=== PATIENT | male | born 1935 | race Caucasian/White ===

== ENCOUNTER 2022-07-11 10:38 | Emergency (ER) | payer MEDICARE, SELFPAY ==
--- NOTE | ~2022-07-11 | CT_ITS ---
EXAMINATION: CT abdomen pelvis wo con DATE: 07/11/2022 12:24 INDICATION: Lower abdominal pain. Urinary retention. TECHNIQUE: Computed tomography (CT) of the abdomen and pelvis was performed without intravenous contr ast. The dose-length product was 569.44 mGy-cm. Automated exposure control and iterative reconstructi on technique were employed. COMPARISON: None. FINDINGS: There is bilateral lower lobe atelectasis/scarring. Large hiatal hernia. Cardiomegaly. No s ignificant pleural or pericardial effusion. The liver, spleen, pancreas, adrenal glands are unremarkable. There is bilateral hydronephrosis witho ut evidence for obstructing stone or mass. There is fecal impaction of the rectum and distal colon. T here is an infrarenal abdominal aortic aneurysm measuring 3.4 x 3 cm greatest axial dimension. There is Flores catheter in the bladder which is decompressed. There is a fat-containing right inguinal irchie ia. Nonobstructive bowel pattern. There are nonobstructing bilateral renal stones. Mild bilateral conner al atrophy. There is lumbar spondylosis. No focal lytic or blastic lesions. IMPRESSION: 1. Bilateral hydronephrosis. No obstructing stone or mass. 2: Nonobstructing bilateral nephrolithiasis. 3: Large hiatal hernia. 4: Fecal impaction of the distal colon and rectum. Reviewed, dictated and finalized at location B.
[2022-07-11 10:37] VITALS: BP 175/93; PULSE 67; RESP 18; TEMP 36.6; O2SAT 100
--- NOTE | 2022-07-11 10:46 | ED.MALEGU ---
HPI - Male Genitourinary General Chief complaint: Urogenital-Male Stated complaint: unable to urinate History of Present Illness HPI Narrative: 86-year-old male history of hypertension, diabetes , dyslipidemia ,BPH presents to the emergency room via EMS from home for evaluation of inability to void since yesterday. Patient states that he was recently being treated for urinary tract infection is currently on Cipro. Patient takes Flomax for BPH. No history of similar symptoms. Patient is also complaining of some generalized abdominal pain. Denies fevers. Patient states last bowel movement was Related Data Allergies Allergy/AdvReac Type Severity Reaction Status Date / Time No Known Allergies Allergy Verified 07/11/22 10:44 Review of Systems Review of Systems: CONSTITUTIONAL: Denies fever, chills, or sweats. EYES: Denies visual changes, redness, or discharge. ENT: Denies rhinorrhea, congestion, sore throat, or otalgia. CARDIOVASCULAR: Denies chest pain, palpitations, or edema. RESPIRATORY: Denies cough or dyspnea. GASTROINTESTINAL: Denies abdominal pain, nausea, vomiting, or diarrhea. GENITOURINARY: Reports recent UTI, SKIN: Denies rash or itching. MUSCULOSKELETAL: Denies back pain, joint pain, or myalgia. NEUROLOGIC: Denies headache, numbness, dizziness, or weakness. PSYCHIATRIC: Denies anxiety or depression. Exam Narrative: GENERAL: Well-appearing, well-nourished, no physical limitations, and in no acute distress. HEAD: Normocephalic, atraumatic. EYES: Conjunctivae normal, PERRLA and EOMI. CHEST: Clear to auscultation. No respiratory distress. No wheezes rales or rhonchi. HEART: Regular rate and rhythm. No murmur heard. Normal peripheral pulses. ABDOMEN: Soft, suprapubic tenderness and distention : Normal external male BACK: No CVA tenderness EXTREMITIES: Normal range of motion. No edema. No clubbing or cyanosis SKIN: Warm, dry, no rash. No noted wounds NEURO: No focal deficits. Alert and oriented x3. MAEW. CN's II-XI intact bilaterally PSYCH: Cooperative. Normal mood and affect. Course Vital Signs Vital signs: Vital Signs Temperature 36.6 C 07/11/22 10:37 Pulse Rate 67 07/11/22 10:37 Respiratory Rate 18 07/11/22 10:37 Blood Pressure 175/93 H 07/11/22 10:37 Pulse Oximetry 100 07/11/22 10:37 Oxygen Delivery Room Air 07/11/22 10:37 Temperature 36.6 C 07/11/22 10:37 Pulse Rate 67 07/11/22 10:37 Respiratory Rate 18 07/11/22 10:37 Blood Pressure 175/93 H 07/11/22 10:37 Pulse Oximetry 100 07/11/22 10:37 Oxygen Delivery Room Air 07/11/22 10:37 MDM - Male Genitourinary MDM Narrative Medical decision making narrative: 56-year-old male history of BPH, hypertension presented to the ER with acute urinary retention. Patient was recently diagnosed with UTI and was on Cipro. Bladder scanner showed 1000 cc fluids. Flores was placed and patient had 1100 cc of urine output. CBC showed no signs of infection. CMP demonstrated elevated BUN and creatinine. CT scan shows no acute abdominal abnormalities. Discussed case with Dr. Sutton's PA, she said she is comfortable having the patient go home with a leg bag and follow-up in her office in 1 week. We will start patient on finasteride. Lab Data 07/11/22 11:39 07/11/22 11:39 Labs: Lab Results 07/11/22 07/11/22 Range/Units 10:50 11:39 WBC 6.1 (4.5-10.0) K/mm3 RBC 2.96 L (4.6-6.20) M/mm3 Hgb 9.0 L (14.0-18.0) g/dL Hct 27.9 L (42.0-52.0) % MCV 94.3 (80-100) fl MCH 30.4 (26-34) pg MCHC 32.3 (32-36) g/dl RDW 13.2 (11.5-14.5) % Plt Count 142 L (150-375) k/mm3 MPV 10.5 H (7.4-10.4) fl Immature Gran % (Auto) 0.3 (0-0.5) % Neut % (Auto) 70.9 (45.5-73.1) % Lymph % (Auto) 13.2 L (18.3-44.2) % Metcalfe % (Auto) 12.7 H (2.6-8.5) % Eos % (Auto) 2.4 (0-4.4) % Baso % (Auto) 0.5 (0.2-1.2) % Lymph # (Auto) 0.81 L (0.9-3.2) K/mm3
[2022-07-11 11:11] LABS: Appearance Urine Clear (Clear); Bacteria Urine None Seen /hpf; Bilirubin Urine Negative (Negative); Blood Urine Negative (Negative); Color Urine Yellow (Yellow); Glucose Urine UA 3+ mg/dL (Negative); Ketones Urine Negative (Negative); Leukocyte Esterase Ur Negative LEU/UL (Negative); Nitrate Urine Negative (Negative); Non Pathogenic Casts 0-2; Protein Urine 1+ mg/dL (Negative); RBC Urine 0-2 /hpf (0-2); Specific Grav Ur 1.015 (1.001-1.035); Squamous Epithelial Cell Urine None seen /hpf (Few); Urobilinogen Urine 0.2 mg/dL (<2.0); WBC Urine 0-5 /hpf; pH Urine 5.5 (5.0-9.0)
[2022-07-11 11:15] LABS: Add Urine Microscopic? YES
[2022-07-11 11:50] LABS: Basophils Percent Auto 0.5 % (0.2-1.2); Eosinophils Absolute Auto 0.2 K/mm3 (0-0.3); Eosinophils Percent Auto 2.4 % (0-4.4); Hematocrit 27.9 % (42.0-52.0); Immature Granulocyte Absolute 0.02 K/mm3 (0.00-0.031); Immature Granulocyte Percent A 0.3 % (0-0.5); Lymphocytes Absolute Auto 0.81 K/mm3 (0.9-3.2); Lymphocytes Percent Auto 13.2 % (18.3-44.2); Mean Corpuscular HGB Conc 32.3 g/dl (32-36); Mean Corpuscular Hemoglobin 30.4 pg (26-34); Mean Corpuscular Volume 94.3 fl (80-100); Mean Platelet Volume 10.5 fl (7.4-10.4); Monocytes Absolute Auto 0.8 K/mm3 (0.1-0.6); Monocytes Percent Auto 12.7 % (2.6-8.5); Neutrophils Absolute Auto 4.4 K/mm3 (1.3-6.7); Neutrophils Percent Auto 70.9 % (45.5-73.1); Platelet Count Result 142 k/mm3 (150-375); Red Blood Count 2.96 M/mm3 (4.6-6.20); Red Cell Distribution Width 13.2 % (11.5-14.5); White Blood Count 6.1 K/mm3 (4.5-10.0)
[2022-07-11 12:03] LABS: Alanine Aminotransferase 17 U/L (6-50); Albumin Level 3.7 g/dL (3.5-5.1); Alkaline Phosphatase 89 U/L (38-126); Anion Gap 9 mmol/L (8-16); Aspartate Amino Transferase 17 U/L (17-59); Bilirubin,Total 0.6 mg/dL (0.2-1.3); Blood Urea Nitrogen 48 mg/dL (9-20); Calcium 9.5 mg/dL (8.4-10.2); Carbon Dioxide 22 mmol/L (22-30); Chloride 102 mmol/L (98-107); Estimated CRCL calculation 19 ml/min; Estimated Glomerular Filt Rate 22; Glucose 142 mg/dL (65-110); Potassium 3.8 mmol/L (3.4-5.0); Sodium 133 mmol/L (137-145)
== END 2022-07-11 14:27 | disposition home or self-care (01) ==
PROVIDERS: Emergency Provider Nurse Practitioner Family; PCP Internal Medicine
DX: N40.1 Benign prostatic hyperplasia with lower urinary tract symptoms (principal); R33.8 Other retention of urine; N39.0 Urinary tract infection, site not specified; I10 Essential (primary) hypertension; E11.9 Type 2 diabetes mellitus without complications; E78.5 Hyperlipidemia, unspecified; N13.2 Hydronephrosis with renal and ureteral calculous obstruction; K44.9 Diaphragmatic hernia without obstruction or gangrene; K56.41 Fecal impaction
CPT/HCPCS: 36415; 74176; 80053; 81001; 85025; 99284

== ENCOUNTER 2022-08-21 23:04 | Inpatient (IN) | payer MEDICARE, SELFPAY ==
--- NOTE | ~2022-08-21 | US_ITS ---
US renal BI 08/22/2022 12:06 Procedure: Realtime transabdominal ultrasound of the kidneys and bladder. Indication: Acute renal insufficiency Comparison: CT dated 07/11/2022 Findings: Renal echotexture is normal bilaterally without hydronephrosis, contour deforming mass. The re are right renal stones measuring up to 11 mm. The right kidney measures 10.5 cm and left kidney me asures 10.6 cm. Bladder is decompressed by Flores catheter. Impression: 1: Right nephrolithiasis. Reviewed, dictated and finalized at location [] Impression: 1: Right nephrolithiasis.
--- NOTE | ~2022-08-21 | XR_ITS ---
Portable chest x-ray Comparison: 08/07/2022 Clinical History: Weakness Findings: Probable minimal bilateral pleural effusions. There is probable minimal bibasilar pulmonar y edema/atelectasis. Cardiomediastinal silhouette is stable. Bones and soft tissues are unremarkable . Impression: Minimal bibasilar pulmonary edema/atelectasis with minimal pleural effusions. Reviewed, dictated and finalized at [facility]. Impression: Minimal bibasilar pulmonary edema/atelectasis with minimal pleural effusions.
--- NOTE | ~2022-08-21 | CT_ITS ---
CT head without contrast Indication: Altered mental status COMPARISON: 08/07/2022 Technique: Serial scans were obtained through the brain without the administration of contrast. Dose reduction technique was used on this scan by utilizing automated exposure control and iterative recon struction technique. The dose-length product (DLP) was 681.00 mGy-cm. Findings: There is no evidence of intracranial hemorrhage, mass lesion, or acute infarct. Left anteri or cerebral artery distribution infarct is present, unchanged. The ventricles and subarachnoid spaces are dilated, consistent with mild to moderate atrophy. Low attenuation regions are seen within the periventricular white matter bilaterally, likely representing changes from chronic microvascular isch emic disease. There is no evidence of edema, mass effect or midline shift. Left craniotomy is unchan ged. The visualized paranasal sinuses and mastoid air cells are clear. Impression: No intracranial hemorrhage, mass, or acute infarct. 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 Atrophy and chronic white matter changes, as above. Reviewed, dictated and finalized at [facility]. Impression: No intracranial hemorrhage, mass, or acute infarct. 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 Atrophy and chronic white matter changes, as above.
[2022-08-21 23:10] VITALS: BP 115/77; PULSE 87; RESP 24; TEMP 36.5; O2SAT 99
--- NOTE | 2022-08-21 23:19 | ED.WEAKNESS ---
HPI - Weakness General Chief complaint: Weakness Stated complaint: UTI? Source: patient and EMS Mode of arrival: EMS Limitations: altered mental status and dementia History of Present Illness HPI Narrative: Patient is an 87-year-old male with a past medical history of insulin-dependent diabetes, dementia, BPH with chronic indwelling Levy catheter, chronic kidney disease, hypertension, presenting to the emergency department for evaluation of altered mental status. Noted to be more confused from baseline, more disoriented per staff at care facility. No fever or reported complaints of vomiting or abdominal pain. Patient was transported to this facility via EMS in stable condition. All history is obtained from EMS and per my review of external medical records. Unfortunately, no history can be obtained from the patient secondary to altered mentation. He is able to state his name. Patient with recent admission for MRSA urinary tract infection for which patient received IV linezolid and was discharged back to facility on oral medications. Related Data Home Medications Medication Instructions Recorded Confirmed aspirin 81 mg tablet,delayed 81 mg PO DAILY 08/08/22 08/08/22 release empagliflozin 10 mg tablet 10 mg PO DAILY 08/08/22 08/08/22 (Jardiance) escitalopram oxalate 10 mg tablet 10 mg PO HS 08/08/22 08/08/22 ferrous sulfate 325 mg (65 mg 325 mg PO DAILY 08/08/22 08/08/22 iron) tablet insulin glargine 100 unit/mL 15 unit subcut DAILY 08/08/22 08/08/22 subcutaneous cartridge methenamine hippurate 1 gram tablet 1 g PO DAILY 08/08/22 08/08/22 metoprolol tartrate 25 mg tablet 25 mg PO HS 08/08/22 08/08/22 pravastatin 40 mg tablet 40 mg PO HS 08/08/22 08/08/22 sodium bicarbonate 650 mg tablet 650 mg PO BID 08/08/22 08/08/22 tamsulosin 0.4 mg capsule 0.4 mg PO HS 08/08/22 08/08/22 trazodone 50 mg tablet 50 mg PO HS PRN Sleep 08/08/22 08/08/22 Allergies Allergy/AdvReac Type Severity Reaction Status Date / Time No Known Allergies Allergy Verified 07/11/22 10:44 Review of Systems Review of Systems: ROS unobtainable: Yes unobtainable due to mental status [facility] Past Medical History Medical History (Updated 08/22/22 @ 00:37 by Julianne Cunha MD) Acute kidney injury superimposed on CKD Acute UTI Altered mental status Congestive heart failure Delirium due to general medical condition Dementia Family History Family History (Updated 08/08/22 @ 00:55 by Frieda Melendez RN) Other Unknown family medical history Social History Social History Smoking status: Never smoker Alcohol intake: never Substance use: never Substance use type: does not use Lack of Transportation: No Lack of Food: Never True Current Housing: I Have Housing Concerned About Future Housing: No Difficulty Paying Gas/Electric Bills: No Difficulty Paying for Meds: No Currently Unemployed: No Education: Don't Know Difficulty w/ Childcare or Family Care: No Spiritual care concerns: No Exam Narrative: GENERAL: Awake, alert, conversant HEAD: Normocephalic, atraumatic. EYES: PERRLA and EOMI. ENT: Nares clear, no rhinorrhea or epistaxis. Mucous membranes moist. NECK: Supple. CHEST: No respiratory distress, breathing even and non labored HEART: Regular rate, sinus rhythm ABDOMEN:Non distended, non tender; indwelling levy catheter EXTREMITIES: Normal range of motion. No edema. SKIN: Pale, Warm, dry, no rash. NEURO:No focal deficits. Alert and oriented x1 Course Vital Signs Vital signs: Vital Signs Temperature 36.5 C 08/21/22 23:10 Pulse Rate 87 08/21/22 23:10 Respiratory Rate 24 H 08/21/22 23:10 Blood Pressure 115/77 08/21/22 23:10 Pulse Oximetry 99 08/21/22 23:10 Oxygen Delivery Room Air 08/21/22 23:10 Temperature 36.5 C 08/21/22 23:10 Pulse Rate 87 08/21/22 23:10 Respiratory Rate 24 H 08/21/22 23:10 Bl
[2022-08-21 23:46] LABS: Basophils Percent Auto 0.2 % (0.2-1.2); Immature Granulocyte Absolute 0.09 K/mm3 (0.00-0.031); Immature Granulocyte Percent A 0.6 % (0-0.5); Lymphocytes Absolute Auto 0.84 K/mm3 (0.9-3.2); Lymphocytes Percent Auto 5.7 % (18.3-44.2); Mean Corpuscular Hemoglobin 31.3 pg (26-34); Monocytes Absolute Auto 1.6 K/mm3 (0.1-0.6); Neutrophils Absolute Auto 12.2 K/mm3 (1.3-6.7); Neutrophils Percent Auto 82.5 % (45.5-73.1); Platelet Count Result 153 k/mm3 (150-375); Red Blood Count 1.98 M/mm3 (4.6-6.20); Red Cell Distribution Width 16.5 % (11.5-14.5); White Blood Count 14.8 K/mm3 (4.5-10.0)
[2022-08-21] MEDS: SODIUM CHLORIDE 0.9% IV 1,000 ML 999 ML IV CONT (23:50)
[2022-08-21 23:55] LABS: Hematocrit 19.4 % (42.0-52.0); Hemoglobin 6.2 g/dL (14.0-18.0)
[2022-08-21 23:58] LABS: INR 1.2
[2022-08-21 23:59] LABS: Partial Thromboplastin Time 24.3 SECONDS (22.3-36.8)
[2022-08-22] VITALS (23 sets, daily range): BP systolic 115–159; BP diastolic 61–84; PULSE 66–91; RESP 16–24; TEMP 36.4–37.1; O2SAT 94–100
[2022-08-22] LABS: Alanine Aminotransferase 23 U/L (6-50); Albumin Level 3.3 g/dL (3.5-5.1); Alkaline Phosphatase 66 U/L (38-126); Anion Gap 11 mmol/L (8-16); Aspartate Amino Transferase 34 U/L (17-59); Bilirubin,Total 0.6 mg/dL (0.2-1.3); Blood Urea Nitrogen 78 mg/dL (9-20); Calcium 9.3 mg/dL (8.4-10.2); Carbon Dioxide 15 mmol/L (22-30); Chloride 104 mmol/L (98-107); Estimated CRCL calculation 13 ml/min; Estimated Glomerular Filt Rate 14; Glucose 70 mg/dL (65-110); Potassium 4.7 mmol/L (3.4-5.0); Sodium 130 mmol/L (137-145)
--- NOTE | 2022-08-22 | ECHO_ITS ---
Patient Info Name: Karl Thompson Age: 87 years : 1935 Gender: Male Ht: 72 in Wt: 220 lbs BSA: 2.27 m2 HR: 70 bpm BP: 129 / 70 mmHg Heart Rhythm: Sinus Arrhythmia Technical Quality: Poor Exam Date: 08/22/2022 10:23 AM Exam Location: [facility] Pulmonary Patient Status: Inpatient Admit Date: 08/22/2022 Staff Ordering Physician: Jluianne Cunha MD Station Attendant: Chris Solo RDCS Attending Provider: Luis Felipe Weiner MD Referring Physician: Alphonse BHAGAT; Exam Type: CA echo doppler color flow Study Info Indications - elevated troponin Complete two-dimensional, color flow and Doppler transthoracic echocardiogram is performed. Reason for Poor Study: poor echocardiographic windows Summary 1. Complete two-dimensional, color flow and Doppler transthoracic echocardiogram is performed. 2. Left ventricular chamber dimension is normal. 3. Left ventricular systolic function is lower limits of normal, estimated at 50-55%. Cannot rule out regional wall motion abnormalities on this study. 4. There is moderately increased left ventricular wall thickness. 5. The left ventricular diastolic function is grade I diastolic dysfunction. 6. Right ventricular systolic function is normal. 7. Left atrial chamber dimension is moderately enlarged. 8. Right atrial chamber dimension is moderately enlarged. 9. The aortic valve is not well visualized. However, based on Doppler, appears there is at least mild-moderate aortic stenosis. 10. There is severe aortic valve calcification. 11. The mitral valve has thickened leaflets. 12. The mitral valve annulus is moderately calcified. 13. There is moderate mitral valve regurgitation. 14. There is mild tricuspid valve regurgitation. Left Ventricle Left ventricular chamber dimension is normal. Left ventricular systolic function is lower limits of normal, estimated at 50-55%. Cannot rule out regional wall motion abnormalities on this study. There is moderately increased left ventricular wall thickness. The left ventricular diastolic function is grade I diastolic dysfunction. Right Ventricle Right ventricular chamber dimension is normal. Right ventricular systolic function is normal. Left Atria Left atrial chamber dimension is moderately enlarged. Right Atria Right atrial chamber dimension is moderately enlarged. Atrial Septum Interatrial septum not well visualized. Aortic Valve The aortic valve is not well visualized. However, based on Doppler, appears there is at least mild-moderate aortic stenosis. There is severe aortic valve calcification. Pulmonic Valve The pulmonic valve is not well visualized. Mitral Valve The mitral valve has thickened leaflets. There is moderate mitral valve regurgitation. The mitral valve annulus is moderately calcified. Tricuspid Valve There is mild tricuspid valve regurgitation. Pericardium/Pleural The pericardium appears epicardial fat pad. There is no pericardial effusion. Inferior Vena Cava Normal inferior vena cava with >50% collapse upon inspiration consistent with normal right atrial pressure, 10 mmHg. Aorta The aortic root size at the sinus of Valsalva is normal. Left Ventricular Outflow Tract Name Value Normal LVOT Doppler LVOT Peak Gradient 4 mmHg LVOT Mean Gradient 2 mmHg
--- NOTE | 2022-08-22 | ECG_ITS ---
Measurements Intervals Lynn Rate: 76 P: 51 VA: 187 QRS: 9 QRSD: 142 T: 2 QT: 394 QTc: 443 Interpretive Statements SINUS RHYTHM RIGHT BUNDLE BRANCH BLCOK ABNORMAL RHYTHM ECG COMPARED TO ECG 08/07/2022 20:35:24 NO SIGNIFICANT CHANGES Electronically Signed On 08-22-2022 14:14:53 CDT by Arnie Morgan M.D.
--- NOTE | 2022-08-22 00:04 | PM.IMHP ---
H&P: HPI History of Present Illness Date/Time: 08/22/22 00:04 Chief Complaint: Altered mental status Narrative: This is an 87-year-old male with past medical history significant for chronic kidney disease, chronic indwelling Flores catheter, dyslipidemia, MRSA recurrent urinary tract infection, type 2 diabetes mellitus, benign prostatic hyperplasia. Recently admitted and discharged from [facility] and treated for the urinary tract infection sent to assisted on linezolid. Patient was brought today for evaluation due to altered mental status. Patient is unable to give any history due to lethargy, obtundation. Preliminary workup was significant for a hemoglobin of 6 hematocrit of 19 creatinine of 4 BUN 76, initial troponin was 5.6. A urinalysis showed numerous WBCs Review of Systems Review of Systems: ROS unobtainable: Yes unobtainable due to mental status (Obtundation, lethargy) PMFSH Past Medical History Medical History (Updated 08/22/22 @ 02:32 by Luis Felipe Weiner MD) Acute kidney injury superimposed on CKD Acute UTI Altered mental status Congestive heart failure Delirium due to general medical condition Dementia Family History Family History Other Unknown family medical history Social History Social History Smoking status: Never smoker Alcohol intake: never Substance use: never Substance use type: does not use Lack of Transportation: No Lack of Food: Never True Current Housing: I Have Housing Concerned About Future Housing: No Difficulty Paying Gas/Electric Bills: No Difficulty Paying for Meds: No Currently Unemployed: No Education: Grade School Difficulty w/ Childcare or Family Care: No Spiritual care concerns: No Meds Home Medications and Allergies Home Medications Medication Instructions Recorded Confirmed Type finasteride 5 mg tablet 5 mg PO DAILY #30 tabs 07/11/22 08/22/22 Rx aspirin 81 mg tablet,delayed 81 mg PO DAILY 08/08/22 08/22/22 History release empagliflozin 10 mg tablet 10 mg PO DAILY 08/08/22 08/22/22 History (Jardiance) escitalopram oxalate 10 mg tablet 10 mg PO HS 08/08/22 08/22/22 History ferrous sulfate 325 mg (65 mg 325 mg PO DAILY 08/08/22 08/22/22 History iron) tablet insulin glargine 100 unit/mL 40 unit subcut DAILY 08/08/22 08/22/22 History subcutaneous cartridge methenamine hippurate 1 gram tablet 1 g PO DAILY 08/08/22 08/22/22 History metoprolol tartrate 25 mg tablet 25 mg PO HS 08/08/22 08/22/22 History pravastatin 40 mg tablet 40 mg PO HS 08/08/22 08/22/22 History sodium bicarbonate 650 mg tablet 650 mg PO TID 08/08/22 08/22/22 History tamsulosin 0.4 mg capsule 0.4 mg PO HS 08/08/22 08/22/22 History linezolid 600 mg tablet 600 mg PO Q12HR@1200,0000 #10 tabs 08/10/22 08/22/22 Rx Allergies Allergy/AdvReac Type Severity Reaction Status Date / Time No Known Allergies Allergy Verified 07/11/22 10:44 Vital Signs Vital Signs - 24 hr 08/21/22 23:10 Temperature 97.7 F Pulse Rate 87 Respiratory Rate 24 H Blood Pressure 115/77 Pulse Oximetry 99 Oxygen Delivery Room Air Exam Narrative: Patient is laying in a stretcher Const: General: comfortable, no acute distress, well developed, ill appearing, average body habitus and other (Generalized pallor) Nutritional Appearance: average body habitus Orientation/consciousness: oriented to person and oriented to place Limitations: altered mental status HENMT: Head: normal to inspection, normocephalic and atraumatic Ears: hearing grossly normal bilaterally Face/Nose/Sinus: normal facial exam Face and sinus: normal facial exam Eyes: General: appearance normal, both eyes and all related structures Pupils: Equal, round and reactive pupils present EOM: EOMs intact bilaterally Neck: Neck: full ROM, no lymphadenopathy and no JVD Thyroid: thyroid sebastian
[2022-08-22 00:16] LABS: Appearance Urine Turbid (Clear); Bilirubin Urine Negative (Negative); Blood Urine 1+ (Negative); Color Urine Yellow (Yellow); Glucose Urine UA Negative (Negative); Ketones Urine Negative (Negative); Leukocyte Esterase Ur 3+ LEU/UL (Negative); Need Manual Microscopic Reviewed; Nitrate Urine Negative (Negative); Non Pathogenic Casts 0-2; Protein Urine 1+ mg/dL (Negative); RBC Urine >100 /hpf (0-2); Specific Grav Ur 1.015 (1.001-1.035); Squamous Epithelial Cell Urine None seen /hpf (Few); Urobilinogen Urine 0.2 mg/dL (<2.0); WBC Urine 21-50 /hpf; pH Urine 5.5 (5.0-9.0)
[2022-08-22 00:19] LABS: Add Urine Microscopic? YES; Bacteria Urine 3+ /hpf
[2022-08-22 00:20] LABS: Budding Yeast Urine Present /hpf
[2022-08-22 01:06] LABS: Lactic Acid Reflex 0.7 mmol/L (0.7-2.0)
[2022-08-22 01:11] LABS: Hemoglobin 5.2 g/dL (14.0-18.0)
[2022-08-22 01:12] LABS: Hematocrit 15.9 % (42.0-52.0)
--- NOTE | 2022-08-22 02:01 | ADMGEN ---
This patient, Karl Thompson, was admitted to 2 Medical Room 256-. Patient/family oriented to hospital policies and general routines including ID bracelet, bed and alarms, visiting hours, pain management, procedures, bathroom and other care routines, personal items, smoking policy, room service/diet, and visiting hours. Information on how to activate the Rapid Response Team has been discussed. Patient/Family are encouraged to report perceived risks to care and to ask questions if they do not understand what they are told or what they should do.
[2022-08-22] MEDS: SODIUM CHLORIDE 0.9% IV 250 ML 30 ML IV CONT ×2 (02:36→06:36)
[2022-08-22] MEDS: PANTOPRAZOLE SODIUM IV 80 MG in SODIUM CHLORIDE 0.9% IV 500 ML 50 MG IV CONT ×2 (03:33→14:00)
[2022-08-22 06:46] LABS: Hematocrit 20.2 % (42.0-52.0); Hemoglobin 6.3 g/dL (14.0-18.0)
--- NOTE | 2022-08-22 06:51 | WPDGICN ---
Assessment and Plan Assessment and plan (1) Acute blood loss anemia: Code(s): D62 - Acute posthemorrhagic anemia Status: Acute Assessment and Plan: He denies seeing blood in his stools. Because his history is not quite reliable I will contact his granddaughter for more information. hemoglobin has dropped from 8.6 earlier this month to 6.2 yesterday than 5.2 did a after transfusion with 2 units is up to 7.4. He has clearly lost a significant amount of blood. (2) Dementia: Code(s): F03.90 - Unspecified dementia, unspecified severity, without behavioral disturbance, psychotic disturbance, mood disturbance, and anxiety Status: Acute (3) Non-ST elevation SD (NSTEMI): Code(s): I21.4 - Non-ST elevation (NSTEMI) myocardial infarction Status: Acute Assessment and Plan: His troponin level is elevated at 5.67. Cardiology has been consulted (4) Acute kidney injury superimposed on CKD: Code(s): N17.9 - Acute kidney failure, unspecified; N18.9 - Chronic kidney disease, unspecified Status: Acute Assessment and Plan: His creatinine which was 2.8 a few months ago is now up to 4. BUN has been increasing also, 78 now versus 39 earlier in August This could be relative dehydration or bleeding particularly from the upper gastrointestinal tract. He does not take NSAIDs. Plan endoscopy will be considered when cleared by Cardiology. GI Consult Note Consult date/time: 08/22/22 06:51 HPI: Karl Thompson is a 87 year old male who presented to the emergency room yesterday with severe weakness. He states that he has been feeling tired for the past couple of days. He is denying any abdominal pain or chest pain. His troponin levels however quite elevated consistent with non STEMI. He was found have a hemoglobin of 6.2 which is lower than his usual which is around 8 or 9. This morning fact his hemoglobin is down to 5.2. He is receiving his 2nd unit of blood. He denies seeing any blood his stools are of having any change in the color or consistency of his bowel movements. He does take aspirin but denies NSAIDs. Review of Systems Review of Systems: All systems reviewed & are unremarkable except as noted in HPI and below PMFSH Past Medical History Medical History Acute kidney injury superimposed on CKD Acute UTI Altered mental status Congestive heart failure Delirium due to general medical condition Dementia Family History Family History Other Unknown family medical history Social History Social History Smoking status: Never smoker Alcohol intake: never Substance use: never Substance use type: does not use Lack of Transportation: No Lack of Food: Never True Current Housing: I Have Housing Concerned About Future Housing: No Difficulty Paying Gas/Electric Bills: No Difficulty Paying for Meds: No Currently Unemployed: No Education: Grade School Difficulty w/ Childcare or Family Care: No Spiritual care concerns: No Meds Home Medications and Allergies Home Medications Medication Instructions Recorded Confirmed Type finasteride 5 mg tablet 5 mg PO DAILY #30 tabs 07/11/22 08/22/22 Rx aspirin 81 mg tablet,delayed 81 mg PO DAILY 08/08/22 08/22/22 History release empagliflozin 10 mg tablet 10 mg PO DAILY 08/08/22 08/22/22 History (Jardiance) escitalopram oxalate 10 mg tablet 10 mg PO HS 08/08/22 08/22/22 History ferrous sulfate 325 mg (65 mg 325 mg PO DAILY 08/08/22 08/22/22 History iron) tablet insulin glargine 100 unit/mL 40 unit subcut DAILY 08/08/22 08/22/22 History subcutaneous cartridge methenamine hippurate 1 gram tablet 1 g PO DAILY 08/08/22 08/22/22 History metoprolol tartrate 25 mg tablet 25 mg PO HS 08/08/22 08/22/22 History pravastatin 40 mg ta
[2022-08-22 08:00] LABS: Iron 27 ug/dL (49-181)
[2022-08-22 08:13] LABS: Percent Iron Saturation 11 % (20-50)
--- NOTE | 2022-08-22 09:03 | PM.CNCAR ---
Assessment and Plan Assessment and plan (1) Non-ST elevation OR (NSTEMI): Code(s): I21.4 - Non-ST elevation (NSTEMI) myocardial infarction Status: Acute Assessment and Plan: Initial troponin of 5.670 with repeat at 5.760. EKG shows sinus rhythm with RBBB, no significant changes compared to prior EKG. No chest pain. In the setting of acute on chronic anemia requiring blood transfusions, and significant ANA CRISTINA on CKD. Given acute on chronic anemia and ANA CRISTINA on CKD and patient without any chest pain, will manage conservatively. Likely demand ischemia. Echocardiogram ordered and pending. Resume ASA 81mg once daily when Hgb becomes stable and no longer needing blood transfusions. Recommend high-intensity statin if no contraindications. Will repeat troponin level. (2) Acute blood loss anemia: Code(s): D62 - Acute posthemorrhagic anemia Status: Acute Assessment and Plan: Hgb as low as 5.2. Receiving blood transfusions. GI has been consulted -- considering endoscopy pending our evaluation. Awaiting echo. (3) Altered mental status: Code(s): R41.82 - Altered mental status, unspecified Status: Acute Assessment and Plan: Workup and management as per primary team (4) Acute kidney injury superimposed on CKD: Code(s): N17.9 - Acute kidney failure, unspecified; N18.9 - Chronic kidney disease, unspecified Status: Acute Assessment and Plan: Closely monitor renal function. History of Present Illness History of Present Illness Consult date/time: 08/22/22 09:03 Requesting physician: Julianne Cunha MD Consult reason: Other (Elevated troponins) Reason For Visit: Anemia/Delirium/ANA CRISTINA Narrative: We are consulted for elevated troponins. This is an 87-year-old male with insulin-dependent diabetes, dementia, BPH with chronic indwelling Flores catheter, CKD, hypertension who presented to the ER for altered mental status. Upon my examination, patient is awake and alert. He knows his name and location (states he is in the hospital in [place]), but he is not oriented to time (thinks it's July and states his birthday was the day before yesterday). Patient is unable to provide any meaningful history. Therefore, history obtained from the chart and patient's medical team. ER workup showed Hgb of 6.2, SCr of 4, initial troponin of 5.670 with repeat at 5.760. EKG shows sinus rhythm with RBBB, no significant changes compared to prior EKG. CXR with minimal pulmonary edema and with minimal pleural effusions. Patient denies any chest pain or shortness of breath currently. He denies having chest pain prior to admission. Review of Systems Review of Systems: All systems reviewed & are unremarkable except as noted in HPI and below (HPI) [facility] Past Medical History Medical History Acute kidney injury superimposed on CKD Acute UTI Altered mental status Congestive heart failure Delirium due to general medical condition Dementia Family History Family History Other Unknown family medical history Social History Social History Smoking status: Never smoker Alcohol intake: never Substance use: never Substance use type: does not use Lack of Transportation: No Lack of Food: Never True Current Housing: I Have Housing Concerned About Future Housing: No Difficulty Paying Gas/Electric Bills: No Difficulty Paying for Meds: No Currently Unemployed: No Education: Grade School Difficulty w/ Childcare or Family Care: No Spiritual care concerns: No Meds Home Medications and Allergies Home Medications Medication Instructions Recorded Confirmed Type finasteride 5 mg tablet 5 mg PO DAILY #30 tabs 07/11/22 08/22/22 Rx aspirin 81 mg tablet,delayed 81 mg PO DAILY 08/08/22 08/22/22 History release empagliflozin 10 mg ta
[2022-08-22 12:44] LABS: Hematocrit 22.7 % (42.0-52.0); Hemoglobin 7.4 g/dL (14.0-18.0)
--- NOTE | 2022-08-22 15:05 | ECG_ITS ---
Measurements Intervals [place] Rate: 76 P: 81 [place]: 190 QRS: 24 QRSD: 150 T: 13 QT: 403 QTc: 455 Interpretive Statements SINUS RHYTHM RIGHT BUNDLE BRANCH BLOCK [120+ ms QRS DURATION, UPRIGHT V1, 40+ ms S IN I/aVL/V4/V5/V6] MINOR LATERAL ST SEGMENT CHANGES; CONSIDER ISCHEMIA RIGHT WENT AXIS POSSIBLE INFERIOR [place], AGE UNDETERMINED COMPARED TO ECG 08/22/2022 00:44:10 RIGHT BUNDLE-BRANCH BLOCK NOW PRESENT Electronically Signed On 08-22-2022 19:59:50 CDT by Cynthia Ferguson M.D.
--- NOTE | 2022-08-22 15:17 | PC.NURSE ---
Attempted to contact Dr. Morgan @ [phone] regarding patients 10/10 chest pain. Voice message left and Dr. Kapoor aware.
[2022-08-22] MEDS: MORPHINE SULFATE (*CRX) 2 MG/ML INJ IV PUSH ×2 (15:27→20:26)
--- NOTE | 2022-08-22 17:27 | WPDPN ---
Progress Note: A&P Assessment and Plan (1) Acute blood loss anemia: Code(s): D62 - Acute posthemorrhagic anemia Status: Acute Assessment and Plan: Admit to med tele Type and screen and type and crossmatch Transfuse 2 units of pack red blood cells GI consult PPI Supportive care Continue to monitor 08/22/2022 interval history:87 y/o persented with AMS is found to have significant anemia with Hgb of 6, patient is poor historian and unable to provider ROS or history seen by GI and suspect GI bleeding, patient hgb drop to 5.2 after receiving 2 units of PRBC, patient is also found to have elevated tropes, patient did not have c/o of CP nor there were any acute changes on EKG and 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 will continue to monitor. (2) Non-ST elevation [place] (NSTEMI): Code(s): I21.4 - Non-ST elevation (NSTEMI) myocardial infarction Status: Acute Assessment and Plan: Likely to be type 2 secondary to demand ischemia also in the setting of chronic renal failure and acute on chronic renal failure Continue to trend troponins Cardiology consult Echocardiogram in a.m. Rate 61 RI 179 QRSd 162 QT 450 QTc 457 --Howe-- P 147 QRS 161 T 183 SINUS RHYTHM RIGHT BUNDLE BRANCH BLOCK [120+ ms QRS DURATION, UPRIGHT V1, 40+ ms S IN I/aVL/V4/V5/V6] LEFT POSTERIOR FASCICULAR BLOCK [QRS AXIS > 109, INFERIOR Q] PROBABLE LIMB LEAD REVERSAL NO PREVIOUS ECG AVAILABLE FOR COMPARISON Electronically Signed On 08-08-2022 9:36:51 (3) Altered mental status: Code(s): R41.82 - Altered mental status, unspecified Status: Acute Assessment and Plan: Likely secondary to above Supportive care CT of the head with no acute stroke (4) Acute kidney injury superimposed on CKD: Code(s): N17.9 - Acute kidney failure, unspecified; N18.9 - Chronic kidney disease, unspecified Status: Acute Assessment and Plan: Likely pre renal on chronic kidney disease Fluid resuscitation Blood transfusion BMP in a.m. Renal ultrasound in a.m. (5) Congestive heart failure: Code(s): I50.9 - Heart failure, unspecified Status: Acute Assessment and Plan: Will obtain BNP Echocardiogram in a.m. (6) Acute UTI: Code(s): N39.0 - Urinary tract infection, site not specified Status: Acute Assessment and Plan: Patient has been started on vancomycin History of MRSA in urine Subjective Date/time seen: 08/22/22 17:27 Interval history: Altered mental status HPI-Narrative: This is an 87-year-old male with past medical history significant for chronic kidney disease, chronic indwelling Flores catheter, dyslipidemia, MRSA recurrent urinary tract infection, type 2 diabetes mellitus, benign prostatic hyperplasia.? Recently admitted and discharged from [facility] and treated for the urinary tract infection sent [facility] [place] [facility].? Patient was brought today for evaluation due to altered mental status.? Patient is unable to give any history due to lethargy, obtundation.? Preliminary workup was significant for a hemoglobin of 6 hematocrit of 19 creatinine of 4 BUN 76, initial troponin was 5.6.? 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 will continue to monitor. Review of Systems Review of Systems: 8 point ROS obtained. Negative, unless stated in HPI. Exam Narrative: Patient is comfor
[2022-08-22] MEDS: MAG HYDROX/AL HYDROX/SIMETH 30 ML UDC PO (18:25)
[2022-08-22] MEDS: NITROGLYCERIN SL 0.4 MG TABLET SUBLINGUAL ×3 (18:25→19:03)
[2022-08-22 19:07] LABS: Hematocrit 24.4 % (42.0-52.0); Hemoglobin 7.9 g/dL (14.0-18.0)
--- NOTE | 2022-08-22 19:52 | PC.NURSE ---
Patient reporting 10/10 chest pain this afternoon. Stat troponin, ekg, and x1 morphine given per Dr. Kapoor. Pain had subsided, but pt again reports chest pain 10/10. Per Dr. Ferguson, give up to x3 nitroglycerin and a dose of Mylanta. Pt still continues complaining of pain, and Dr. 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
[2022-08-22] MEDS: METOPROLOL TARTRATE 25 MG TABLET PO (20:26)
[2022-08-23] VITALS (12 sets, daily range): BP systolic 97–131; BP diastolic 68–85; PULSE 66–130; RESP 15–18; TEMP 36.3–37.6; O2SAT 94–98
[2022-08-23 01:20] LABS: Hematocrit 22.7 % (42.0-52.0); Hemoglobin 7.5 g/dL (14.0-18.0)
[2022-08-23] MEDS: FLUCONAZOLE 200 MG/NACL 100 ML 200 MG/100 ML BAG 100 MG IVPB (01:39)
[2022-08-23] MEDS: PANTOPRAZOLE SODIUM IV 80 MG in SODIUM CHLORIDE 0.9% IV 500 ML 50 MG IV CONT ×2 (04:32→20:47)
[2022-08-23 05:19] LABS: Hemoglobin 7.2 g/dL (14.0-18.0); Mean Corpuscular HGB Conc 32.7 g/dl (32-36); Mean Corpuscular Hemoglobin 31.7 pg (26-34); Mean Corpuscular Volume 96.9 fl (80-100); Mean Platelet Volume 10.6 fl (7.4-10.4); Platelet Count Result 113 k/mm3 (150-375); Red Blood Count 2.27 M/mm3 (4.6-6.20); Red Cell Distribution Width 15.8 % (11.5-14.5); White Blood Count 6.4 K/mm3 (4.5-10.0)
[2022-08-23 05:35] LABS: Anion Gap 7 mmol/L (8-16); Blood Urea Nitrogen 68 mg/dL (9-20); Calcium 8.2 mg/dL (8.4-10.2); Carbon Dioxide 17 mmol/L (22-30); Chloride 109 mmol/L (98-107); Estimated CRCL calculation 13 ml/min; Estimated Glomerular Filt Rate 14; Glucose 96 mg/dL (65-110); Potassium 4.6 mmol/L (3.4-5.0); Sodium 133 mmol/L (137-145)
[2022-08-23 06:01] LABS: Vancomycin Random 12.4 ug/mL (10-20)
--- NOTE | 2022-08-23 07:15 | WPDGIPROGNO ---
Progress Note: A&P Assessment and Plan (1) Acute blood loss anemia: Code(s): D62 - Acute posthemorrhagic anemia Status: Acute Assessment and Plan: He denies seeing blood in his stools. Because his history is not quite reliable I will contact his granddaughter for more information. hemoglobin has dropped from 8.6 earlier this month to 6.2 yesterday than 5.2 did a after transfusion with 2 units is up to 7.4. He has clearly lost a significant amount of blood. 08/23/2022 now that he has been cleared by Cardiology will schedule him for EGD and colonoscopy to be done tomorrow. (2) Dementia: Code(s): F03.90 - Unspecified dementia, unspecified severity, without behavioral disturbance, psychotic disturbance, mood disturbance, and anxiety Status: Acute (3) Non-ST elevation [place] (NSTEMI): Code(s): I21.4 - Non-ST elevation (NSTEMI) myocardial infarction Status: Acute Assessment and Plan: His troponin level is elevated at 5.67. Cardiology has been consulted (4) Acute kidney injury superimposed on CKD: Code(s): N17.9 - Acute kidney failure, unspecified; N18.9 - Chronic kidney disease, unspecified Status: Acute Assessment and Plan: His creatinine which was 2.8 a few months ago is now up to 4. BUN has been increasing also, 78 now versus 39 earlier in August This could be relative dehydration or bleeding particularly from the upper gastrointestinal tract. He does not take NSAIDs. Plan EGD and colonoscopy to be done tomorrow. Subjective Date/time seen: 08/23/22 07:15 He is comfortable today; denies pain. Cardiology has seen him and feels there is no acute process. Echocardiogram was okay. We will go ahead and prep him for endoscopy and colonoscopy to be done tomorrow. Exam Const: General: cooperative and healthy appearing Orientation/consciousness: oriented to person and oriented to place Eyes: General: appearance normal, both eyes and all related structures Neck: Neck: normal visual inspection Chest: Chest palpation & inspection: normal inspection of the chest Resp: Effort & Inspection: normal respiratory effort Auscultation: clear to auscultation bilaterally Cardio: Rate: regular rate Rhythm: regular rhythm GI: Inspection: normal to inspection Auscultation: normal bowel sounds Skin: General skin exam: normal color and no jaundice Neuro: General: oriented to person, oriented to place and patient oriented x3 Speech: normal speech Objective Data Vital Signs Vital Signs: Vital Signs - 24 hr 08/22/22 07:48 08/22/22 07:48 08/22/22 08:40 Temperature 36.5 C 36.5 C 36.4 C Pulse Rate 67 67 70 Respiratory Rate 16 16 16 Blood Pressure 129/71 129/71 126/70 Pulse Oximetry 98 98 97 Oxygen Delivery 08/22/22 09:40 08/22/22 10:00 08/22/22 08:00 Temperature 37.1 C 37.1 C Pulse Rate 74 74 72 Respiratory Rate 16 16 Blood Pressure 133/75 133/75 Pulse Oximetry 99 99 Oxygen Delivery 08/22/22 08:00 08/22/22 12:00 08/22/22 14:10 Temperature 36.6 C Pulse Rate 67 69 Respiratory Rate 16 Blood Pressure 143/73 H Pulse Oximetry 97 Oxygen Delivery Room Air 08/22/22 16:00 08/22/22 20:26 08/22/22 20:55 Temperature 36.6 C Pulse Rate 79 91 91 Respiratory Rate 22 H Blood Pressure 159/84 H Pulse Oximetry 95 Oxygen Delivery 08/22/22 20:20 08/22/22 20:00 08/23/22 00:00 Temperature Pulse Rate 88 68 Respiratory Rate Blood Pressure Pulse Oximetry Oxygen Delivery Room Air 08/23/22 04:00 08/23/22 06:00 Temperature 36.3 C L Pulse Rate 66 69 Respiratory Rate 16 Blood Pressure 131/85 Pulse Oximetry 94 Oxygen Delivery Intake/Output Intake/Output: Intake & Output 08/20/22 08/21/22 08/22/22 08/23/22 23:59 23:59 23:59 23:59 Intake Total 4140 980 Output Total 1050 800 Balance 3090 180 Meds/Results Medications: Active Medications Generic Name Dose Route Start La
[2022-08-23] MEDS: NITROGLYCERIN SL 0.4 MG TABLET SUBLINGUAL ×2 (08:50→12:51)
[2022-08-23] MEDS: METOPROLOL TARTRATE 25 MG TABLET PO ×2 (08:57→19:57)
--- NOTE | 2022-08-23 09:24 | PM.PNCARD ---
Progress Note: A&P Assessment and Plan (1) Non-ST elevation [place] (NSTEMI): Code(s): I21.4 - Non-ST elevation (NSTEMI) myocardial infarction Status: Acute Assessment and Plan: Initial troponin of 5.670 with peak at 5.760. Downtrended to 4.060. EKG shows sinus rhythm with RBBB, no significant changes compared to prior EKG. In the setting of acute on chronic anemia requiring blood transfusions, and significant ANA CRISTINA on CKD. Echocardiogram shows LVEF 50-55%, regional wall motion abnormalities cannot be ruled out (technically difficult study), appears to have mild-moderate aortic stenosis, moderate mitral regurgitation, mild tricuspid regurgitation. On afternoon of 08/22, patient reported intermittent burning chest pain. EKG obtained which was unchanged. Troponin levels checked, and were downtrending. Patient given Morphine, SL NTG, and GI cocktail. This morning, patient states he had chest pain that worsened after swallowing pill. He also does have reproducible chest wall pain, but it is difficult to determine if this is the same type of pain that he's been feeling as patient doesn't answer questions. Chest pain possibly GI vs musculoskeletal, cannot rule out cardiac. Given acute on chronic anemia and ANA CRISTINA on CKD, will manage conservatively. Given concern for GI bleed with significant anemia, he needs EGD/colonoscopy. No further cardiac workup prior to his endoscopy. Will hold off on starting ASA pending results of endoscopy and pending stabilization of his Hgb levels. (2) Acute blood loss anemia: Code(s): D62 - Acute posthemorrhagic anemia Status: Acute Assessment and Plan: GI consulted. Planning for EGD and colonoscopy 08/24. (3) Altered mental status: Code(s): R41.82 - Altered mental status, unspecified Status: Acute Assessment and Plan: Workup as per primary team. (4) Acute kidney injury superimposed on CKD: Code(s): N17.9 - Acute kidney failure, unspecified; N18.9 - Chronic kidney disease, unspecified Status: Acute Assessment and Plan: Monitor renal function closely. Avoid nephrotoxic agents. Subjective Date/time seen: 08/23/22 09:24 Interval history: Reason for visit: Elevated troponins HPI: We are consulted for elevated troponins. This is an 87-year-old male with insulin-dependent diabetes, dementia, BPH with chronic indwelling Flores catheter, CKD, hypertension who presented to the ER for altered mental status. Upon my examination, patient is awake and alert. He knows his name and location (states he is in the hospital in [place]), but he is not oriented to time (thinks it's July and states his birthday was the day before yesterday). Patient is unable to provide any meaningful history. Therefore, history obtained from the chart and patient's medical team. ER workup showed Hgb of 6.2, SCr of 4, initial troponin of 5.670 with repeat at 5.760. EKG shows sinus rhythm with RBBB, no significant changes compared to prior EKG. CXR with minimal pulmonary edema and with minimal pleural effusions. Patient denies any chest pain or shortness of breath currently. He denies having chest pain prior to admission. Date of service 08/23: Overnight, patient reported to RN intermittent episodes of burning chest pain. EKG obtained without changes from earlier EKGs. Troponins have continued to downtrend. Given Morphine, NTG, GI cocktail. Upon my examination this morning, patient reports that his pain worsened after he swallowed his pill. He does have reproducible chest wall pain, but cannot provide details on whether this is the same type of pain he's been feeling. After asking him a few questions, patient told me to get out of his room. Review of Systems Review of Systems: 8 point ROS obtained. Negative, unless stated in HPI. Exam Const: General: no acute distress Other: Has food/drinks over his chest HENMT: Mouth: Yes dry mucous membranes Eyes: General: appearance nor
--- NOTE | 2022-08-23 10:09 | P.CDI_ITS ---
CDI Query Clarification Request Documented history of CHF. CHF noted on the assessment and plan. Pulmonary edema noted on the chest xray from 08/22/22. Please specify type and acuity of heart failure if known. 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 <Vince Kapoor MD - Last Filed: 09/05/22 18:00>
--- NOTE | 2022-08-23 12:12 | WPDPN ---
Progress Note: A&P Assessment and Plan (1) Acute blood loss anemia: Code(s): D62 - Acute posthemorrhagic anemia Status: Acute Assessment and Plan: Admit to med tele Type and screen and type and crossmatch Transfuse 2 units of pack red blood cells GI consult PPI Supportive care Continue to monitor 08/23/2022 interval history:87 y/o presented with AMS is found to have significant anemia with Hgb of 6, patient is poor historian and unable to provider ROS or history seen by GI and suspect GI bleeding, patient hgb drop to 5.2 after receiving 2 units of PRBC, today patient hgb is slowly trensding down, patient and family do not want further evaluation with EGD or colonoscopy, patient is also found to have elevated tropes, on 08/22 late afternoon, patient did have c/o of CP and patient was given morphine 2mg IV x1, CP resolved, there were no acute changes on EKG and 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 will continue to monitor. (2) Non-ST elevation [place] (NSTEMI): Code(s): I21.4 - Non-ST elevation (NSTEMI) myocardial infarction Status: Acute Assessment and Plan: Likely to be type 2 secondary to demand ischemia also in the setting of chronic renal failure and acute on chronic renal failure Continue to trend troponins Cardiology consult Echocardiogram in a.m. Rate 61 [place] 179 QRSd 162 QT 450 QTc 457 --[place]-- P 147 QRS 161 T 183 SINUS RHYTHM RIGHT BUNDLE BRANCH BLOCK [120+ ms QRS DURATION, UPRIGHT V1, 40+ ms S IN I/aVL/V4/V5/V6] LEFT POSTERIOR FASCICULAR BLOCK [QRS AXIS > 109, INFERIOR Q] PROBABLE LIMB LEAD REVERSAL NO PREVIOUS ECG AVAILABLE FOR COMPARISON Electronically Signed On 08-08-2022 9:36:51 (3) Altered mental status: Code(s): R41.82 - Altered mental status, unspecified Status: Acute Assessment and Plan: Likely secondary to above Supportive care CT of the head with no acute stroke (4) Acute kidney injury superimposed on CKD: Code(s): N17.9 - Acute kidney failure, unspecified; N18.9 - Chronic kidney disease, unspecified Status: Acute Assessment and Plan: Likely pre renal on chronic kidney disease Fluid resuscitation Blood transfusion BMP in a.m. Renal ultrasound in a.m. (5) Congestive heart failure: Code(s): I50.9 - Heart failure, unspecified Status: Acute Assessment and Plan: Will obtain BNP Echocardiogram in a.m. (6) Acute UTI: Code(s): N39.0 - Urinary tract infection, site not specified Status: Acute Assessment and Plan: Patient has been started on vancomycin History of MRSA in urine Subjective Date/time seen: 08/23/22 12:12 Interval history: Altered mental status HPI-Narrative: This is an 87-year-old male with past medical history significant for chronic kidney disease, chronic indwelling Flores catheter, dyslipidemia, MRSA recurrent urinary tract infection, type 2 diabetes mellitus, benign prostatic hyperplasia.? Recently admitted and discharged from [facility] and treated for the urinary tract infection sent to [facility] on linezolid.? Patient was brought today for evaluation due to altered mental status.? Patient is unable to give any history due to lethargy, obtundation.? Preliminary workup was significant for a hemoglobin of 6 hematocrit of 19 creatinine of 4 BUN 76, initial troponin was 5.6.? A urinalysis showed numerous WBCs 08/23/2022 interval history:87 y/o presented with AMS is found to have significant anemia with Hgb of 6, patient is poor historian and unable to provider ROS or history seen by GI and suspect GI bleeding, patient hgb drop to 5.2 after receiving 2 units of PRBC, today patient hgb is slowly trensding down, patient and family do not want further evaluation with EGD or colonoscopy, patient is also found to have elevated tropes, on 08/22 late afternoon, patient did have c/o of CP and patient w
[2022-08-23] MEDS: MORPHINE SULFATE (*CRX) 2 MG/ML INJ IV PUSH (14:31)
--- NOTE | 2022-08-23 15:51 | PCPTNOTE ---
Attempted PT evaluation, but patient refused and stated 'I don't want to deal with this' and 'I want to sleep.' Will follow. RN aware.
[2022-08-23] MEDS: ISOSORBIDE MONONITRATE 30 MG TAB.ER.24H PO (16:42)
--- NOTE | 2022-08-23 20:35 | PC.NURSE ---
Addendum entered by Mukesh Barton RN 08/24/22 02:48: Lopressor improved heart rate to consistent 90-120 with intermittent jumps to 130. Original Note: Dr Kowalski notified pt has been consistently running A-fib RVR >130 throughout the day with intermittent drops to 80-120. Pt blood pressure 98/71 and has only PO 25mg lopressor available. Order received to give lopressor early and monitor for 2 hours, call provider back if still sustaining >130.
[2022-08-24] VITALS (11 sets, daily range): BP systolic 110–128; BP diastolic 76–88; PULSE 86–118; RESP 18–21; TEMP 36.8–37.2; O2SAT 96–100
[2022-08-24] MEDS: MORPHINE SULFATE (*CRX) 2 MG/ML INJ IV PUSH (01:49)
[2022-08-24] MEDS: MAG HYDROX/AL HYDROX/SIMETH 30 ML UDC PO (01:55)
--- NOTE | 2022-08-24 02:36 | PC.NURSE ---
Pt c/o severe left sided chest pain. 2mg morphine and mylanta cup given, also placed on 2L NC. Vitals stable and no change in rhythm on telemetry Patient chest pain resolved 30min post morphine administration, will continue 2L NC overnight while sleeping.
[2022-08-24 05:16] LABS: Mean Corpuscular HGB Conc 31.8 g/dl (32-36); Mean Corpuscular Hemoglobin 30.8 pg (26-34); Mean Corpuscular Volume 96.9 fl (80-100); Mean Platelet Volume 10.9 fl (7.4-10.4); Platelet Count Result 124 k/mm3 (150-375); Red Blood Count 2.27 M/mm3 (4.6-6.20); Red Cell Distribution Width 15.5 % (11.5-14.5); White Blood Count 5.9 K/mm3 (4.5-10.0)
[2022-08-24 05:27] LABS: Anion Gap 6 mmol/L (8-16); Blood Urea Nitrogen 68 mg/dL (9-20); Carbon Dioxide 15 mmol/L (22-30); Chloride 110 mmol/L (98-107); Estimated CRCL calculation 14 ml/min; Estimated Glomerular Filt Rate 15; Glucose 101 mg/dL (65-110); Magnesium 1.9 mg/dL (1.6-2.3); Potassium 4.3 mmol/L (3.4-5.0); Sodium 131 mmol/L (137-145)
[2022-08-24 06:00] LABS: Vancomycin Random 18.5 ug/mL (10-20)
[2022-08-24] MEDS: PANTOPRAZOLE SODIUM IV 80 MG in SODIUM CHLORIDE 0.9% IV 500 ML 50 MG IV CONT (06:47)
[2022-08-24] MEDS: METOPROLOL TARTRATE 25 MG TABLET PO ×2 (08:09→20:03)
[2022-08-24] MEDS: ISOSORBIDE MONONITRATE 30 MG TAB.ER.24H PO (08:12)
--- NOTE | 2022-08-24 08:29 | PHA.ABX.ID ---
Pharmacy ID Consult - Stewardship Interventions Type of Interventions: Escalation Pharmacy ID Note: Subjective Pharmacy was consulted by Jaz Waldron regarding infectious diseases for Karl Thompson. Karl Thompson is a 87 year old M with concerns regarding seda in the urine. Background The patient is currently receiving Vancomycin IV. The patient's PMH includes DM, BPH, CKD, among others listed in various provider notes, but also MRSA in the urine. Additionally, patient has positive cultures (below) and ID pharmacist was initially consulted on Seda in the urine which is commonly a colonizing species and given the current state of the patient, intravenous vancomycin was continued due to the history of MRSA in the urine and GPC's in the blood. Now second set of blood cultures are showing Yeast pending identification at [facility]. Patient is currently in [facility] on CKD with SCr of 3.9 mg/dL. Microbiology 08/22/22 00:41 Blood Blood Culture - Preliminary Yeast. 08/22/22 00:25 Blood Blood Culture - Preliminary Gram positive cocci cluster is 08/21/22 23:32 Urine [place] Urine Culture - Final Seda tropicalis Assessment/Recommendation/Discussion Spoke briefly with MD Kapoor (from consulting provider's service) twice regarding this patient. Pertinent discussion from today was following seeing that this patient's now also growing yeast in the blood. Echinocandins are recommended to be started for the treatment of candidemia and started Micafungin 100 mg iv q24h on patient. Continue Micafungin and Vancomycin at this time. Await identification and sensitivities for Yeast and this GPC in blood. If GPC in blood is contaminant can consider the discontinuation of vancomycin, but will follow culture results for that. Will await opportunities for the yeast for de-escalation too. Highly recommend considering repeat blood cultures to demonstrate clearance in 1-3 days (to allow for micafungin to act on the yeast). Additionally, many GPC's and yeast can become adhesed to access lines and catheters and may result in reseeding if are kept in. Should these be present, consider their removal or replacement if able. Thank you for the interesting consult. Blair Morgan, PharmD Infectious Disease/Antimicrobial Stewardship Pharmacist 08/24/22; 0829 WBC 5.9 K/mm3 (4.5-10.0) 08/24/22 05:07 Creatinine 3.90 mg/dL (0.7-1.3) H 08/24/22 05:07 Estim Creat Clear Calc 14 ml/min 08/24/22 05:07
[2022-08-24] MEDS: MICAFUNGIN SODIUM 100 MG in SODIUM CHLORIDE 0.9% IV 100 ML IVPB (09:45)
[2022-08-24 11:19] LABS: Hematocrit 23.5 % (42.0-52.0); Hemoglobin 7.4 g/dL (14.0-18.0)
--- NOTE | 2022-08-24 12:18 | P.CDI_ITS ---
CDI Query Clarification Request Urine Culture from 08/21 grew > 100,000 Chrissie Tropicalis. Chronic indwelling levy catheter documented. Patient started on Micanfungin Sodium 100 mg IV daily. Clarification request - UTI has been documented, chronic indwelling levy catheter documented. Please clarify if UTI is: * due to/associated with chronic indwelling levy catheter * not due to/associated with chronic indwelling levy catheter * unable to determine <Debbie Mayers RN - Last Filed: 08/24/22 12:22> Clarified Diagnosis Clarified Diagnosis: due to/associated with chronic indwelling levy cathete <Vince Kapoor MD - Last Filed: 09/05/22 18:02>
--- NOTE | 2022-08-24 13:22 | WPDPN ---
Progress Note: A&P Assessment and Plan (1) Acute blood loss anemia: Code(s): D62 - Acute posthemorrhagic anemia Status: Acute Assessment and Plan: Admit to med tele Type and screen and type and crossmatch Transfuse 2 units of pack red blood cells GI consult PPI Supportive care Continue to monitor 08/24/2022 interval history:87 y/o presented with AMS is found to have significant anemia with Hgb of 6, patient is poor historian and unable to provider ROS or history seen by GI and suspect GI bleeding, patient hgb drop to 5.2 after receiving 2 units of PRBC, today patient hgb is slowly trensding down, patient and family do not want further evaluation with EGD or colonoscopy, patient is also found to have elevated tropes, on 08/22 late afternoon, patient did have c/o of CP and patient was given morphine 2mg IV x1, CP resolved, there were no acute changes on EKG and patient with 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 today patient both blood culture and urine are growing yeast, discussed with ID pharmacist started patient on Micafungin, will repeat blood culture in 2 days and further recommendation to follow, spoke with patient esau and POHernan and gave updates, will continue to monitor. (2) Non-ST elevation IN (NSTEMI): Code(s): I21.4 - Non-ST elevation (NSTEMI) myocardial infarction Status: Acute Assessment and Plan: Likely to be type 2 secondary to demand ischemia also in the setting of chronic renal failure and acute on chronic renal failure Continue to trend troponins Cardiology consult Echocardiogram in a.m. Rate 61 MS 179 QRSd 162 QT 450 QTc 457 --[employer]-- P 147 QRS 161 T 183 SINUS RHYTHM RIGHT BUNDLE BRANCH BLOCK [120+ ms QRS DURATION, UPRIGHT V1, 40+ ms S IN I/aVL/V4/V5/V6] LEFT POSTERIOR FASCICULAR BLOCK [QRS AXIS > 109, INFERIOR Q] PROBABLE LIMB LEAD REVERSAL NO PREVIOUS ECG AVAILABLE FOR COMPARISON Electronically Signed On 08-08-2022 9:36:51 (3) Altered mental status: Code(s): R41.82 - Altered mental status, unspecified Status: Acute Assessment and Plan: Likely secondary to above Supportive care CT of the head with no acute stroke (4) Acute kidney injury superimposed on CKD: Code(s): N17.9 - Acute kidney failure, unspecified; N18.9 - Chronic kidney disease, unspecified Status: Acute Assessment and Plan: Likely pre renal on chronic kidney disease Fluid resuscitation Blood transfusion BMP in a.m. Renal ultrasound in a.m. (5) Congestive heart failure: Code(s): I50.9 - Heart failure, unspecified Status: Acute Assessment and Plan: Will obtain BNP Echocardiogram in a.m. (6) Acute UTI: Code(s): N39.0 - Urinary tract infection, site not specified Status: Acute Assessment and Plan: Patient has been started on vancomycin History of MRSA in urine Subjective Date/time seen: 08/24/22 13:22 Interval history: Altered mental status HPI-Narrative: This is an 87-year-old male with past medical history significant for chronic kidney disease, chronic indwelling Flores catheter, dyslipidemia, MRSA recurrent urinary tract infection, type 2 diabetes mellitus, benign prostatic hyperplasia.? Recently admitted and discharged from [facility] and treated for the urinary tract infection sent to detention on linezolid.? Patient was brought today for evaluation due to altered mental status.? Patient is unable to give any history due to lethargy, obtundation.? Preliminary workup was significant for a hemoglobin of 6 hematocrit of 19 creatinine of 4 BUN 76, initial troponin was 5.6.? A urinalysis showed numerous WBCs 08/24/2022 interval history:87 y/o presented with AMS is found to have significant anemia with Hgb of 6, patient is poor historian and unable to provider ROS or history seen by GI and suspect GI bleeding, patient hgb drop to 5.2 after re
--- NOTE | 2022-08-24 13:42 | PM.PNCARD ---
Progress Note: A&P Assessment and Plan (1) Non-ST elevation [place] (NSTEMI): Code(s): I21.4 - Non-ST elevation (NSTEMI) myocardial infarction Status: Acute Plan 87-year-old man with type 2 myocardial infarction resulting from severe anemia. There is no planned workup for this since the patient is DNR and declining any workup for anemia or the rest of his medical problems it looks like family is interested in comfort level care. This is not an appropriate but in this setting I will sign off of his care at this time. There is no benefit for ongoing cardiology follow-up at this time. End of life planning seems to be appropriate Raymond Wilcox MD [facility] Subjective Date/time seen: Date of service: 08/24/22 13:42 Interval history: 87-year-old man with: Elevated troponin level apparent diagnosis of type 2 myocardial infarction due to severe anemia. Patient has anemia attributed to chronic kidney disease. Not symptomatic any cardiac complaints. The family has decided to forego any workup of his anemia. Exam Const: General: no acute distress Other: Has food/drinks over his chest HENMT: Mouth: Yes dry mucous membranes Eyes: General: appearance normal, both eyes and all related structures Sclera: sclerae normal Neck: Neck: supple Resp: Effort & Inspection: normal respiratory effort Auscultation: clear to auscultation bilaterally and diminished lung sounds Cardio: Rate: regular rate Rhythm: regular rhythm Skin: General skin exam: normal color Neuro: Speech: normal speech Other: Difficult to engage in conversation. Oriented to self and location. Not oriented to time. Psych: Affect: normal affect and Hostile affect present Objective Data Vital Signs Vital Signs: Vital Signs - 24 hr 08/23/22 14:00 08/23/22 16:00 08/23/22 19:27 Temperature 36.9 C 37.6 C Pulse Rate 80 96 85 Respiratory Rate 15 18 Blood Pressure 120/80 98/71 L Pulse Oximetry 98 96 Oxygen Delivery 08/23/22 19:57 08/23/22 20:00 08/23/22 20:00 Temperature Pulse Rate 130 H Respiratory Rate Blood Pressure Pulse Oximetry 96 Oxygen Delivery Room Air 08/23/22 20:00 08/24/22 00:00 08/24/22 04:00 Temperature Pulse Rate 118 H 118 H 86 Respiratory Rate Blood Pressure Pulse Oximetry Oxygen Delivery 08/24/22 05:47 08/24/22 08:09 08/24/22 11:35 Temperature 37.2 C Pulse Rate 86 88 Respiratory Rate 18 Blood Pressure 127/76 Pulse Oximetry 96 Oxygen Delivery Room Air 08/24/22 08:01 08/24/22 12:04 Temperature Pulse Rate 94 88 Respiratory Rate Blood Pressure Pulse Oximetry Oxygen Delivery Intake/Output Intake/Output: Intake & Output 08/21/22 08/22/22 08/23/22 08/24/22 23:59 23:59 23:59 23:59 Intake Total 4140 2489 840 Output Total 1050 1600 1180 Balance 3090 889 -340 Meds/Results Medications: Active Medications Generic Name Dose Route Start Last Admin Trade Name Freq PRN Reason Stop Dose Admin Al Hydrox/Mg Hydrox/Simethicone 30 ml 08/22/22 18:02 08/24/22 01:55 Mag Hydrox/Al Hydrox/Simeth 30 Ml Udc PO 30 ml Q6H PRN Administration Indigestion Pantoprazole Sodium 80 mg/ 500 mls @ 50 mls/hr 08/22/22 02:45 08/24/22 10:45 Sodium Chloride IV CONT 50 mls/hr .Q10H JEAN-PIERRE Infusion Micafungin Sodium 100 mg/ 100 mls @ 100 mls/hr 08/24/22 09:00 08/24/22 10:45 Sodium Chloride IVPB Infused DAILY JEAN-PIERRE Infusion Isosorbide Mononitrate 30 mg 08/23/22 14:20 08/24/22 08:12 Isosorbide Mononitrate 30 Mg Tab.Er.24h PO 30 mg QAM JEAN-PIERRE Administration Metoprolol Tartrate 25 mg 08/22/22 21:00 08/24/22 08:09 Metoprolol Tartrate 25 Mg Tablet PO 25 mg Q12HR JEAN-PIERRE Administration Miscellaneous Information 0 each 08/23/22 00:01 Reminder To Reassess Fungal Infection Tomorrow - One Time Fluconazole Ordered Overnight XX 09/22/22 00:00 CLARIFY JEAN-PIERRE Morphine Sulfate 2 mg 08/22/22 19:49
--- NOTE | 2022-08-24 14:28 | PCCCNOTE ---
On 08/24/22, the student, [Marry Torre], provided care and completed [facility] documentation on this patient. I have reviewed the student's documentation and agree with the findings.
[2022-08-24] MEDS: PANTOPRAZOLE SODIUM IV 40 MG VIAL IV PUSH (20:03)
[2022-08-25] VITALS (12 sets, daily range): BP systolic 125–174; BP diastolic 74–95; PULSE 83–116; RESP 17–20; TEMP 36.2–36.4; O2SAT 98–99
[2022-08-25 06:00] LABS: Hematocrit 22.5 % (42.0-52.0); Hemoglobin 7.1 g/dL (14.0-18.0); Mean Corpuscular HGB Conc 31.6 g/dl (32-36); Mean Corpuscular Hemoglobin 30.2 pg (26-34); Mean Corpuscular Volume 95.7 fl (80-100); Mean Platelet Volume 10.8 fl (7.4-10.4); Platelet Count Result 138 k/mm3 (150-375); Red Blood Count 2.35 M/mm3 (4.6-6.20); White Blood Count 6.3 K/mm3 (4.5-10.0)
[2022-08-25 06:02] LABS: Anion Gap 9 mmol/L (8-16); Blood Urea Nitrogen 63 mg/dL (9-20); Calcium 8.2 mg/dL (8.4-10.2); Carbon Dioxide 16 mmol/L (22-30); Chloride 109 mmol/L (98-107); Estimated CRCL calculation 13 ml/min; Estimated Glomerular Filt Rate 14; Glucose 113 mg/dL (65-110); Magnesium 1.9 mg/dL (1.6-2.3); Potassium 3.9 mmol/L (3.4-5.0); Sodium 134 mmol/L (137-145)
[2022-08-25] MEDS: METOPROLOL TARTRATE 25 MG TABLET PO ×2 (09:44→21:30)
[2022-08-25] MEDS: MICAFUNGIN SODIUM 100 MG in SODIUM CHLORIDE 0.9% IV 100 ML IVPB (09:44)
[2022-08-25] MEDS: PANTOPRAZOLE SODIUM IV 40 MG VIAL IV PUSH ×2 (09:44→21:30)
[2022-08-25] MEDS: ISOSORBIDE MONONITRATE 30 MG TAB.ER.24H PO (09:44)
--- NOTE | 2022-08-25 09:56 | WPDPN ---
Progress Note: A&P Assessment and Plan (1) Acute blood loss anemia: Code(s): D62 - Acute posthemorrhagic anemia Status: Acute Assessment and Plan: Admit to med tele Type and screen and type and crossmatch Transfuse 2 units of pack red blood cells GI consult PPI Supportive care Continue to monitor 08/25/2022 interval history:87 y/o presented with AMS is found to have significant anemia with Hgb of 6, patient is poor historian and unable to provider ROS or history seen by GI and suspect GI bleeding, patient hgb drop to 5.2 after receiving 2 units of PRBC, today patient hgb is slowly trending down but stable, patient and family do not want further evaluation with EGD or colonoscopy, patient is also found to have elevated tropes, on 08/22 late afternoon, patient did have c/o of CP and patient was given morphine 2mg IV x1, CP resolved, there were no acute changes on EKG and 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 on 08/24 patient both blood culture and urine are growing yeast, discussed with ID pharmacist started patient on Micafungin, will repeat blood culture in 2 days and further recommendation to follow, on 08/23 spoke with patient mariellagin and LAURIE and gave updates, will continue to monitor. (2) Non-ST elevation CT (NSTEMI): Code(s): I21.4 - Non-ST elevation (NSTEMI) myocardial infarction Status: Acute Assessment and Plan: Likely to be type 2 secondary to demand ischemia also in the setting of chronic renal failure and acute on chronic renal failure Continue to trend troponins Cardiology consult Echocardiogram in a.m. Rate 61 [place] 179 QRSd 162 QT 450 QTc 457 --[place]-- P 147 QRS 161 T 183 SINUS RHYTHM RIGHT BUNDLE BRANCH BLOCK [120+ ms QRS DURATION, UPRIGHT V1, 40+ ms S IN I/aVL/V4/V5/V6] LEFT POSTERIOR FASCICULAR BLOCK [QRS AXIS > 109, INFERIOR Q] PROBABLE LIMB LEAD REVERSAL NO PREVIOUS ECG AVAILABLE FOR COMPARISON Electronically Signed On 08-08-2022 9:36:51 (3) Altered mental status: Code(s): R41.82 - Altered mental status, unspecified Status: Acute Assessment and Plan: Likely secondary to above Supportive care CT of the head with no acute stroke (4) Acute kidney injury superimposed on CKD: Code(s): N17.9 - Acute kidney failure, unspecified; N18.9 - Chronic kidney disease, unspecified Status: Acute Assessment and Plan: Likely pre renal on chronic kidney disease Fluid resuscitation Blood transfusion BMP in a.m. Renal ultrasound in a.m. (5) Congestive heart failure: Code(s): I50.9 - Heart failure, unspecified Status: Acute Assessment and Plan: Will obtain BNP Echocardiogram in a.m. (6) Acute UTI: Code(s): N39.0 - Urinary tract infection, site not specified Status: Acute Assessment and Plan: Patient has been started on vancomycin History of MRSA in urine Subjective Date/time seen: 08/25/22 09:56 Interval history: Admit to [facility] tele Type and screen and type and crossmatch Transfuse 2 units of pack red blood cells GI consult PPI Supportive care Continue to monitor 08/25/2022 interval history:87 y/o presented with AMS is found to have significant anemia with Hgb of 6, patient is poor historian and unable to provider ROS or history seen by GI and suspect GI bleeding, patient hgb drop to 5.2 after receiving 2 units of PRBC, today patient hgb is slowly trending down but stable, patient and family do not want further evaluation with EGD or colonoscopy, patient is also found to have elevated tropes, on 08/22 late afternoon, patient did have c/o of CP and patient was given morphine 2mg IV x1, CP resolved, there were no acute changes on EKG and 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 on 08/24 patient both blood culture and urine are grow
[2022-08-26] VITALS (12 sets, daily range): BP systolic 139–188; BP diastolic 78–103; PULSE 79–129; RESP 20; TEMP 36–36.9; O2SAT 98–99
[2022-08-26 05:54] LABS: Hematocrit 24.6 % (42.0-52.0); Hemoglobin 7.7 g/dL (14.0-18.0); Mean Corpuscular HGB Conc 31.3 g/dl (32-36); Mean Corpuscular Hemoglobin 30.2 pg (26-34); Mean Corpuscular Volume 96.5 fl (80-100); Mean Platelet Volume 10.3 fl (7.4-10.4); Platelet Count Result 163 k/mm3 (150-375); Red Blood Count 2.55 M/mm3 (4.6-6.20); Red Cell Distribution Width 15.2 % (11.5-14.5); White Blood Count 10.5 K/mm3 (4.5-10.0)
[2022-08-26 06:04] LABS: Anion Gap 9 mmol/L (8-16); Blood Urea Nitrogen 63 mg/dL (9-20); Calcium 8.8 mg/dL (8.4-10.2); Carbon Dioxide 16 mmol/L (22-30); Chloride 112 mmol/L (98-107); Estimated CRCL calculation 13 ml/min; Estimated Glomerular Filt Rate 13; Glucose 138 mg/dL (65-110); Magnesium 1.9 mg/dL (1.6-2.3); Potassium 4.1 mmol/L (3.4-5.0); Sodium 137 mmol/L (137-145)
[2022-08-26] MEDS: MICAFUNGIN SODIUM 100 MG in SODIUM CHLORIDE 0.9% IV 100 ML IVPB (08:20)
[2022-08-26] MEDS: PANTOPRAZOLE SODIUM IV 40 MG VIAL IV PUSH ×2 (08:24→20:23)
[2022-08-26] MEDS: MORPHINE SULFATE (*CRX) 2 MG/ML INJ IV PUSH ×2 (08:29→15:06)
[2022-08-26] MEDS: ISOSORBIDE MONONITRATE 30 MG TAB.ER.24H PO (09:37)
[2022-08-26] MEDS: METOPROLOL TARTRATE 25 MG TABLET PO ×2 (09:37→20:23)
--- NOTE | 2022-08-26 10:35 | WPDPN ---
Progress Note: A&P Assessment and Plan (1) Acute blood loss anemia: Code(s): D62 - Acute posthemorrhagic anemia Status: Acute Assessment and Plan: Admit to med tele Type and screen and type and crossmatch Transfuse 2 units of pack red blood cells GI consult PPI Supportive care Continue to monitor 08/26/2022 interval history:87 y/o presented with AMS is found to have significant anemia with Hgb of 6, patient is poor historian and unable to provider ROS or history seen by GI and suspect GI bleeding, patient hgb drop to 5.2 after receiving 2 units of PRBC, today patient hgb was slowly trending down but stable and today it is 7.7, patient and family do not want further evaluation with EGD or colonoscopy, patient is also found to have elevated tropes, on 08/22 late afternoon, patient did have c/o of CP and patient was given morphine 2mg IV x1, CP resolved, there were no acute changes on EKG and 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 on 08/24 patient both blood culture and urine are growing Chrissie glabrata, discussed with ID pharmacist started patient on Micafungin, will repeat blood culture in todays and further recommendation to follow, on 08/23 spoke with patient esau and LAURIE and gave updates, will continue to monitor. (2) Non-ST elevation PR (NSTEMI): Code(s): I21.4 - Non-ST elevation (NSTEMI) myocardial infarction Status: Acute Assessment and Plan: Likely to be type 2 secondary to demand ischemia also in the setting of chronic renal failure and acute on chronic renal failure Continue to trend troponins Cardiology consult Echocardiogram in a.m. Rate 61 AR 179 QRSd 162 QT 450 QTc 457 --[place]-- P 147 QRS 161 T 183 SINUS RHYTHM RIGHT BUNDLE BRANCH BLOCK [120+ ms QRS DURATION, UPRIGHT V1, 40+ ms S IN I/aVL/V4/V5/V6] LEFT POSTERIOR FASCICULAR BLOCK [QRS AXIS > 109, INFERIOR Q] PROBABLE LIMB LEAD REVERSAL NO PREVIOUS ECG AVAILABLE FOR COMPARISON Electronically Signed On 08-08-2022 9:36:51 (3) Altered mental status: Code(s): R41.82 - Altered mental status, unspecified Status: Acute Assessment and Plan: Likely secondary to above Supportive care CT of the head with no acute stroke (4) Acute kidney injury superimposed on CKD: Code(s): N17.9 - Acute kidney failure, unspecified; N18.9 - Chronic kidney disease, unspecified Status: Acute Assessment and Plan: Likely pre renal on chronic kidney disease Fluid resuscitation Blood transfusion BMP in a.m. Renal ultrasound in a.m. (5) Congestive heart failure: Code(s): I50.9 - Heart failure, unspecified Status: Acute Assessment and Plan: Will obtain BNP Echocardiogram in a.m. (6) Acute UTI: Code(s): N39.0 - Urinary tract infection, site not specified Status: Acute Assessment and Plan: Patient has been started on vancomycin History of MRSA in urine Subjective Date/time seen: 08/26/22 10:35 Interval history: Admit to [facility] tele Type and screen and type and crossmatch Transfuse 2 units of pack red blood cells GI consult PPI Supportive care Continue to monitor 08/26/2022 interval history:87 y/o presented with AMS is found to have significant anemia with Hgb of 6, patient is poor historian and unable to provider ROS or history seen by GI and suspect GI bleeding, patient hgb drop to 5.2 after receiving 2 units of PRBC, today patient hgb was slowly trending down but stable and today it is 7.7, patient and family do not want further evaluation with EGD or colonoscopy, patient is also found to have elevated tropes, on 08/22 late afternoon, patient did have c/o of CP and patient was given morphine 2mg IV x1, CP resolved, there were no acute changes on EKG and 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 on 08/03
--- NOTE | 2022-08-26 10:37 | PCPTNOTE ---
Patient refused treatment this session. Patient did not give reason why, other than he just didn't want to do it. Educated patient on the importance and benefits of working with therapy, patient continued to refuse and told PT to get out.
[2022-08-27] VITALS (12 sets, daily range): BP systolic 146–153; BP diastolic 82–92; PULSE 58–116; RESP 16–20; TEMP 36–36.9; O2SAT 97–100; BMI 29.9
[2022-08-27 05:30] LABS: Hematocrit 24.3 % (42.0-52.0); Hemoglobin 7.6 g/dL (14.0-18.0); Mean Corpuscular HGB Conc 31.3 g/dl (32-36); Mean Corpuscular Hemoglobin 29.7 pg (26-34); Mean Corpuscular Volume 94.9 fl (80-100); Mean Platelet Volume 10.3 fl (7.4-10.4); Platelet Count Result 170 k/mm3 (150-375); Red Blood Count 2.56 M/mm3 (4.6-6.20)
[2022-08-27 05:46] LABS: Anion Gap 8 mmol/L (8-16); Blood Urea Nitrogen 56 mg/dL (9-20); Calcium 8.9 mg/dL (8.4-10.2); Carbon Dioxide 15 mmol/L (22-30); Chloride 113 mmol/L (98-107); Estimated CRCL calculation 14 ml/min; Estimated Glomerular Filt Rate 15; Glucose 117 mg/dL (65-110); Magnesium 1.8 mg/dL (1.6-2.3); Potassium 3.5 mmol/L (3.4-5.0); Sodium 136 mmol/L (137-145)
[2022-08-27] MEDS: ISOSORBIDE MONONITRATE 30 MG TAB.ER.24H PO (09:15)
[2022-08-27] MEDS: METOPROLOL TARTRATE 25 MG TABLET PO ×2 (09:15→20:44)
[2022-08-27] MEDS: PANTOPRAZOLE SODIUM IV 40 MG VIAL IV PUSH (09:15)
[2022-08-27] MEDS: POTASSIUM CHLORIDE 20 MEQ ER TABLET 40 MEQ PO (09:20)
[2022-08-27] MEDS: MICAFUNGIN SODIUM 100 MG in SODIUM CHLORIDE 0.9% IV 100 ML IVPB (09:20)
[2022-08-27] MEDS: NITROGLYCERIN SL 0.4 MG TABLET SUBLINGUAL (09:21)
--- NOTE | 2022-08-27 09:30 | PC.NURSE ---
Addendum entered by Tashia Fall RN 08/27/22 09:33: BP 150/91, 92 HR, 100% o2 on RA at time of chest discomfort Original Note: 0925 PT reports chest discomfort, given PRN nitro once and reported pain is resolved at this time.
--- NOTE | 2022-08-27 09:55 | PCPTNOTE ---
Patient refused treatment this session due to not being able to get up. He states that he is too tired and preceded to go to sleep and say he won't do it now. Will continue per PT plan of care.
--- NOTE | 2022-08-27 11:50 | WPDPN ---
Progress Note: A&P Assessment and Plan (1) Acute blood loss anemia: Code(s): D62 - Acute posthemorrhagic anemia Status: Acute Assessment and Plan: Admit to med tele Type and screen and type and crossmatch Transfuse 2 units of pack red blood cells GI consult PPI Supportive care Continue to monitor 08/27/2022 interval history:87 y/o presented with AMS is found to have significant anemia with Hgb of 6, patient is poor historian and unable to provider ROS or history seen by GI and suspect GI bleeding, patient hgb drop to 5.2 after receiving 2 units of PRBC, today patient hgb was slowly trending down but stable and today it is 7.7, patient and family do not want further evaluation with EGD or colonoscopy, patient is also found to have elevated tropes, on 08/22 late afternoon, patient did have c/o of CP and patient was given morphine 2mg IV x1, CP resolved, there were no acute changes on EKG and patient with profound anemia mixing pan tender suspect demand ischemia due to bleeding, and recommended conservative management. on 08/24 patient both blood culture and urine are growing Chrissie glabrata, discussed with ID pharmacist started patient on Micafungin, patient had repeat blood culture in 08/26, will monitor and further recommendation to follow, Patient has no new symptoms, on 08/23 spoke with patient esau and LAURIE and gave updates, will continue to monitor. (2) Non-ST elevation IL (NSTEMI): Code(s): I21.4 - Non-ST elevation (NSTEMI) myocardial infarction Status: Acute Assessment and Plan: Likely to be type 2 secondary to demand ischemia also in the setting of chronic renal failure and acute on chronic renal failure Continue to trend troponins Cardiology consult Echocardiogram in a.m. Rate 61 [place] 179 QRSd 162 QT 450 QTc 457 --[place]-- P 147 QRS 161 T 183 SINUS RHYTHM RIGHT BUNDLE BRANCH BLOCK [120+ ms QRS DURATION, UPRIGHT V1, 40+ ms S IN I/aVL/V4/V5/V6] LEFT POSTERIOR FASCICULAR BLOCK [QRS AXIS > 109, INFERIOR Q] PROBABLE LIMB LEAD REVERSAL NO PREVIOUS ECG AVAILABLE FOR COMPARISON Electronically Signed On 08-08-2022 9:36:51 (3) Altered mental status: Code(s): R41.82 - Altered mental status, unspecified Status: Acute Assessment and Plan: Likely secondary to above Supportive care CT of the head with no acute stroke (4) Acute kidney injury superimposed on CKD: Code(s): N17.9 - Acute kidney failure, unspecified; N18.9 - Chronic kidney disease, unspecified Status: Acute Assessment and Plan: Likely pre renal on chronic kidney disease Fluid resuscitation Blood transfusion BMP in a.m. Renal ultrasound in a.m. (5) Congestive heart failure: Code(s): I50.9 - Heart failure, unspecified Status: Acute Assessment and Plan: Will obtain BNP Echocardiogram in a.m. (6) Acute UTI: Code(s): N39.0 - Urinary tract infection, site not specified Status: Acute Assessment and Plan: Patient has been started on vancomycin History of MRSA in urine Subjective Date/time seen: 08/27/22 11:50 Interval history: Admit to med tele Type and screen and type and crossmatch Transfuse 2 units of pack red blood cells GI consult PPI Supportive care Continue to monitor 08/27/2022 interval history:87 y/o presented with AMS is found to have significant anemia with Hgb of 6, patient is poor historian and unable to provider ROS or history seen by GI and suspect GI bleeding, patient hgb drop to 5.2 after receiving 2 units of PRBC, today patient hgb was slowly trending down but stable and today it is 7.7, patient and family do not want further evaluation with EGD or colonoscopy, patient is also found to have elevated tropes, on 08/22 late afternoon, patient did have c/o of CP and patient was given morphine 2mg IV x1, CP resolved, there were no acute changes on EKG and patient with profound anemia mixing pan tender suspect demand ischemia due to bleeding, a
--- NOTE | 2022-08-27 13:16 | WPDPN ---
Progress Note: A&P Assessment and Plan (1) Acute blood loss anemia: Code(s): D62 - Acute posthemorrhagic anemia Status: Acute Assessment and Plan: Admit to med tele Type and screen and type and crossmatch Transfuse 2 units of pack red blood cells GI consult PPI Supportive care Continue to monitor 08/27/2022 interval history:87 y/o presented with AMS is found to have significant anemia with Hgb of 6, patient is poor historian and unable to provider ROS or history seen by GI and suspect GI bleeding, patient hgb drop to 5.2 after receiving 2 units of PRBC, today patient hgb was slowly trending down but stable and today it is 7.7, patient and family do not want further evaluation with EGD or colonoscopy, patient is also found to have elevated tropes, on 08/22 late afternoon, patient did have c/o of CP and patient was given morphine 2mg IV x1, CP resolved, there were no acute changes on EKG and patient with profound anemia clinical pharmacy manager suspect demand ischemia due to bleeding, and recommended conservative management. on 08/24 patient both blood culture and urine are growing Chrissie glabrata, discussed with ID pharmacist started patient on Micafungin, patient had repeat blood culture in 08/26 no growth so far, will monitor and further recommendation to follow, Patient has no new symptoms, on 08/23 spoke with patient grand rivera and LAURIE and gave updates, will continue to monitor. (2) Non-ST elevation [place] (NSTEMI): Code(s): I21.4 - Non-ST elevation (NSTEMI) myocardial infarction Status: Acute Assessment and Plan: Likely to be type 2 secondary to demand ischemia also in the setting of chronic renal failure and acute on chronic renal failure Continue to trend troponins Cardiology consult Echocardiogram in a.m. Rate 61 ID 179 QRSd 162 QT 450 QTc 457 --[place]-- P 147 QRS 161 T 183 SINUS RHYTHM RIGHT BUNDLE BRANCH BLOCK [120+ ms QRS DURATION, UPRIGHT V1, 40+ ms S IN I/aVL/V4/V5/V6] LEFT POSTERIOR FASCICULAR BLOCK [QRS AXIS > 109, INFERIOR Q] PROBABLE LIMB LEAD REVERSAL NO PREVIOUS ECG AVAILABLE FOR COMPARISON Electronically Signed On 08-08-2022 9:36:51 (3) Altered mental status: Code(s): R41.82 - Altered mental status, unspecified Status: Acute Assessment and Plan: Likely secondary to above Supportive care CT of the head with no acute stroke (4) Acute kidney injury superimposed on CKD: Code(s): N17.9 - Acute kidney failure, unspecified; N18.9 - Chronic kidney disease, unspecified Status: Acute Assessment and Plan: Likely pre renal on chronic kidney disease Fluid resuscitation Blood transfusion BMP in a.m. Renal ultrasound in a.m. (5) Congestive heart failure: Code(s): I50.9 - Heart failure, unspecified Status: Acute Assessment and Plan: Will obtain BNP Echocardiogram in a.m. (6) Acute UTI: Code(s): N39.0 - Urinary tract infection, site not specified Status: Acute Assessment and Plan: Patient has been started on vancomycin History of MRSA in urine Subjective Date/time seen: 08/27/22 13:16 Interval history: Admit to med tele Type and screen and type and crossmatch Transfuse 2 units of pack red blood cells GI consult PPI Supportive care Continue to monitor 08/27/2022 interval history:87 y/o presented with AMS is found to have significant anemia with Hgb of 6, patient is poor historian and unable to provider ROS or history seen by GI and suspect GI bleeding, patient hgb drop to 5.2 after receiving 2 units of PRBC, today patient hgb was slowly trending down but stable and today it is 7.7, patient and family do not want further evaluation with EGD or colonoscopy, patient is also found to have elevated tropes, on 08/22 late afternoon, patient did have c/o of CP and patient was given morphine 2mg IV x1, CP resolved, there were no acute changes on EKG and patient with profound anemia clinical pharmacy manager suspect demand ischem
--- NOTE | 2022-08-27 13:58 | PCPTNOTE ---
Patient refused treatment this session. The patient stated that he doesn't want to do anything and that he will just do it when he gets home. He states that his granddaughter will help him. Will continue per PT plan of care.
[2022-08-27] MEDS: PANTOPRAZOLE 40 MG TABLET PO (23:50)
[2022-08-28] VITALS (11 sets, daily range): BP systolic 148–151; BP diastolic 79–89; PULSE 82–110; RESP 16–20; TEMP 36.3–36.6; O2SAT 99–100
[2022-08-28 05:44] LABS: Hematocrit 25.7 % (42.0-52.0); Hemoglobin 8.2 g/dL (14.0-18.0); Mean Corpuscular HGB Conc 31.9 g/dl (32-36); Mean Corpuscular Hemoglobin 30.7 pg (26-34); Mean Corpuscular Volume 96.3 fl (80-100); Mean Platelet Volume 10.2 fl (7.4-10.4); Platelet Count Result 198 k/mm3 (150-375); Red Blood Count 2.67 M/mm3 (4.6-6.20); Red Cell Distribution Width 15.1 % (11.5-14.5)
[2022-08-28 05:53] LABS: Anion Gap 9 mmol/L (8-16); Blood Urea Nitrogen 54 mg/dL (9-20); Calcium 9.1 mg/dL (8.4-10.2); Carbon Dioxide 15 mmol/L (22-30); Chloride 112 mmol/L (98-107); Estimated CRCL calculation 15 ml/min; Estimated Glomerular Filt Rate 16; Glucose 124 mg/dL (65-110); Magnesium 1.8 mg/dL (1.6-2.3); Sodium 136 mmol/L (137-145)
[2022-08-28] MEDS: METOPROLOL TARTRATE 25 MG TABLET PO ×2 (08:43→20:22)
[2022-08-28] MEDS: PANTOPRAZOLE 40 MG TABLET PO ×2 (08:43→20:23)
[2022-08-28] MEDS: ISOSORBIDE MONONITRATE 30 MG TAB.ER.24H PO (08:47)
--- NOTE | 2022-08-28 10:42 | WPDPN ---
Progress Note: A&P Assessment and Plan (1) Acute blood loss anemia: Code(s): D62 - Acute posthemorrhagic anemia Status: Acute Assessment and Plan: Admit to med tele Type and screen and type and crossmatch Transfuse 2 units of pack red blood cells GI consult PPI Supportive care Continue to monitor 08/28/2022 interval history:87 y/o presented with AMS is found to have significant anemia with Hgb of 6, patient is poor historian and unable to provider ROS or history seen by GI and suspect GI bleeding, patient hgb drop to 5.2 after receiving 2 units of PRBC, today patient hgb was slowly trending down but stable and today it is 7.7, patient and family do not want further evaluation with EGD or colonoscopy, patient is also found to have elevated tropes, on 08/22 late afternoon, patient did have c/o of CP and patient was given morphine 2mg IV x1, CP resolved, there were no acute changes on EKG and patient with profound anemia field counsel suspect demand ischemia due to bleeding, and recommended conservative management. on 08/24 patient both blood culture and urine are growing Chrissie glabrata, discussed with ID pharmacist started patient on Micafungin, patient had repeat blood culture in 08/26 no growth so far, ID pharmacist has sent for sensitivity and further recommendation to follow, will monitor and further recommendation to follow, Patient has no new symptoms, on 08/23 spoke with patient grand rivera and LAURIE and gave updates, will continue to monitor. (2) Non-ST elevation [place] (NSTEMI): Code(s): I21.4 - Non-ST elevation (NSTEMI) myocardial infarction Status: Acute Assessment and Plan: Likely to be type 2 secondary to demand ischemia also in the setting of chronic renal failure and acute on chronic renal failure Continue to trend troponins Cardiology consult Echocardiogram in a.m. Rate 61 [place] 179 QRSd 162 QT 450 QTc 457 --[place]-- P 147 QRS 161 T 183 SINUS RHYTHM RIGHT BUNDLE BRANCH BLOCK [120+ ms QRS DURATION, UPRIGHT V1, 40+ ms S IN I/aVL/V4/V5/V6] LEFT POSTERIOR FASCICULAR BLOCK [QRS AXIS > 109, INFERIOR Q] PROBABLE LIMB LEAD REVERSAL NO PREVIOUS ECG AVAILABLE FOR COMPARISON Electronically Signed On 08-08-2022 9:36:51 (3) Altered mental status: Code(s): R41.82 - Altered mental status, unspecified Status: Acute Assessment and Plan: Likely secondary to above Supportive care CT of the head with no acute stroke (4) Acute kidney injury superimposed on CKD: Code(s): N17.9 - Acute kidney failure, unspecified; N18.9 - Chronic kidney disease, unspecified Status: Acute Assessment and Plan: Likely pre renal on chronic kidney disease Fluid resuscitation Blood transfusion BMP in a.m. Renal ultrasound in a.m. (5) Congestive heart failure: Code(s): I50.9 - Heart failure, unspecified Status: Acute Assessment and Plan: Will obtain BNP Echocardiogram in a.m. (6) Acute UTI: Code(s): N39.0 - Urinary tract infection, site not specified Status: Acute Assessment and Plan: Patient has been started on vancomycin History of MRSA in urine Subjective Date/time seen: 08/28/22 10:42 Interval history: [facility] to [facility] Type and screen and type and crossmatch Transfuse 2 units of pack red blood cells GI consult PPI Supportive care Continue to monitor 08/28/2022 interval history:87 y/o presented with AMS is found to have significant anemia with Hgb of 6, patient is poor historian and unable to provider ROS or history seen by GI and suspect GI bleeding, patient hgb drop to 5.2 after receiving 2 units of PRBC, today patient hgb was slowly trending down but stable and today it is 7.7, patient and family do not want further evaluation with EGD or colonoscopy, patient is also found to have elevated tropes, on 08/22 late afternoon, patient did have c/o of CP and patient was given morphine 2mg IV x1, CP resolved, there were no acute change
[2022-08-28] MEDS: MICAFUNGIN SODIUM 100 MG in SODIUM CHLORIDE 0.9% IV 100 ML IVPB (10:46)
--- NOTE | 2022-08-28 14:06 | PCPTNOTE ---
Patient refused treatment this session. Educated patient on the importance of therapy, patient continued to refuse. Patient reported I like to stay where I'm at. Patient did not even want to participate sitting edge of bed and then laying back down at end of session.
[2022-08-29] VITALS (11 sets, daily range): BP systolic 149–175; BP diastolic 79–89; PULSE 69–92; RESP 18–20; TEMP 36.1–37.1; O2SAT 96–99
[2022-08-29 05:42] LABS: Hematocrit 26.1 % (42.0-52.0); Hemoglobin 8.1 g/dL (14.0-18.0); Mean Corpuscular Hemoglobin 29.8 pg (26-34); Mean Platelet Volume 10.1 fl (7.4-10.4); Platelet Count Result 193 k/mm3 (150-375); Red Blood Count 2.72 M/mm3 (4.6-6.20); White Blood Count 5.6 K/mm3 (4.5-10.0)
[2022-08-29 05:57] LABS: Anion Gap 8 mmol/L (8-16); Blood Urea Nitrogen 54 mg/dL (9-20); Carbon Dioxide 18 mmol/L (22-30); Chloride 111 mmol/L (98-107); Estimated CRCL calculation 15 ml/min; Estimated Glomerular Filt Rate 16; Glucose 128 mg/dL (65-110); Magnesium 1.8 mg/dL (1.6-2.3); Sodium 137 mmol/L (137-145)
[2022-08-29] MEDS: ISOSORBIDE MONONITRATE 30 MG TAB.ER.24H PO (08:43)
[2022-08-29] MEDS: METOPROLOL TARTRATE 25 MG TABLET PO ×2 (08:43→21:27)
[2022-08-29] MEDS: PANTOPRAZOLE 40 MG TABLET PO ×2 (08:45→21:27)
[2022-08-29] MEDS: MICAFUNGIN SODIUM 100 MG in SODIUM CHLORIDE 0.9% IV 100 ML IVPB (08:46)
--- NOTE | 2022-08-29 09:13 | PCPTNOTE ---
Spoke with referring hospitalist Dr. Kapoor. OK to DC PT orders due to pt refusing therapy.
--- NOTE | 2022-08-29 11:13 | PHA.ABX.ID ---
Pharmacy ID Consult - Stewardship Interventions Type of Interventions: Discharge Recommendation, Escalation Pharmacy ID Note: Patient, per discussion with provider, has improved in intravenous micafungin immensely for the management of this C. glabrata candidemia with cleared cultures. Guidelines would recommend 14 days from cleared cultures (08/26) which could mean that, if appropriate and without metastatic candidial complications, therapy could complete with last dose on 09/08. Vancomycin IV discontinued in interim due to S. Epi growth as likely skin contaminant. Sensitivities for fluconazole and voriconazole have been requested but are send outs and [facility] says likely next week at the earliest. Options could be to discharge patient if appropriate soon on parenteral antifungal for remainder of course or a switch to PO if appropriate when sensitivities to return and complete course of the 14d from negative cultures OR could discharge on PO after sensitivities return however this would increase length of stay and the concerns related with that. Will sign off at this time. Consider reaching out or reconsultation if anything changes, new information is noted, or additional recommendations are needed. Microbiology 08/26/22 05:34 Blood Blood Culture - Preliminary 08/26/22 05:25 Blood Blood Culture - Preliminary 08/22/22 00:41 Blood Blood Culture - Final Seda glabrata 08/22/22 00:25 Blood Blood Culture - Final Staphylococcus epidermis Seda glabrata 08/21/22 23:32 Urine [place] Urine Culture - Final Seda tropicalis Previous note copied below Blood culture results positive at 0548 08/24 and called to night provider by RN at 0612 08/24. Micafungin started for 0900 08/24 following call between ID pharmacist and MD Kapoor. Addendum Documented By: Blair Morgan 08/24/22904 Addendum Signed By: <Electronically signed by Blair Morgan> 08/24/22904 Pharmacy ID Consult - Stewardship Interventions Type of Interventions: Escalation Pharmacy ID Note: Subjective Pharmacy was consulted by Jaz Waldron regarding infectious diseases for Karl Thompson. Karl Thompson is a 87 year old M with concerns regarding seda in the urine. Background The patient is currently receiving Vancomycin IV. The patient's PMH includes DM, BPH, CKD, among others listed in various provider notes, but also MRSA in the urine. Additionally, patient has positive cultures (below) and ID pharmacist was initially consulted on Seda in the urine which is commonly a colonizing species and given the current state of the patient, intravenous vancomycin was continued due to the history of MRSA in the urine and GPC's in the blood. Now second set of blood cultures are showing Yeast pending identification at [facility]. Patient is currently in [facility] on CKD with SCr of 3.9 mg/dL. Microbiology 08/22/22 00:41 Blood Blood Culture - Preliminary Yeast. 08/22/22 00:25 Blood Blood Culture - Preliminary Gram positive cocci cluster is 08/21/22 23:32 Urine [place] Urine Culture - Final Seda tropicalis Assessment/Recommendation/Discussion Spoke briefly with MD Kapoor (from consulting provider's service) twice regarding this patient. Pertinent discussion from today was following seeing that this patient's now also growing yeast in the blood. Echinocandins are recommended to be started for the treatment of candidemia and started Micafungin 100 mg iv q24h on patient. Continue Micafungin and Vancomycin at this time. Await identification and sensitivities for Yeast and this GPC in blood. If GPC in blood is contaminant can consider the discontinuation of vancomycin, but will follow culture results for that. Bryon
--- NOTE | 2022-08-29 12:22 | WPDPN ---
Progress Note: A&P Assessment and Plan (1) Acute blood loss anemia: Code(s): D62 - Acute posthemorrhagic anemia Status: Acute Assessment and Plan: Admit to med tele Type and screen and type and crossmatch Transfuse 2 units of pack red blood cells GI consult PPI Supportive care Continue to monitor 08/29/2022 interval history:87 y/o presented with AMS is found to have significant anemia with Hgb of 6, patient is poor historian and unable to provider ROS or history seen by GI and suspect GI bleeding, patient hgb drop to 5.2 after receiving 2 units of PRBC, patient hgb was slowly trending down but stable and it is now 8.1 today, patient and family do not want further evaluation with EGD or colonoscopy, patient is also found to have elevated tropes, on 08/22 late afternoon, patient did have c/o of CP and patient was given morphine 2mg IV x1, CP resolved, there were no acute changes on EKG and patient with profound anemia postal inspector suspect demand ischemia due to bleeding, and recommended conservative management. on 08/24 patient both blood culture and urine are growing Chrissie glabrata, discussed with ID pharmacist started patient on Micafungin, patient had repeat blood culture in 08/26 no growth so far, ID pharmacist has sent for sensitivity and further recommendation to follow, plan is to discharge home tomorrow, on IV abx, and follow up on sensitivity and if needed adjust abx, will monitor and further recommendation to follow, Patient has no new symptoms, on 08/23 spoke with patient grand rivera and LAURIE and gave updates, will continue to monitor. (2) Non-ST elevation [place] (NSTEMI): Code(s): I21.4 - Non-ST elevation (NSTEMI) myocardial infarction Status: Acute Assessment and Plan: Likely to be type 2 secondary to demand ischemia also in the setting of chronic renal failure and acute on chronic renal failure Continue to trend troponins Cardiology consult Echocardiogram in a.m. Rate 61 MD 179 QRSd 162 QT 450 QTc 457 --[place]-- P 147 QRS 161 T 183 SINUS RHYTHM RIGHT BUNDLE BRANCH BLOCK [120+ ms QRS DURATION, UPRIGHT V1, 40+ ms S IN I/aVL/V4/V5/V6] LEFT POSTERIOR FASCICULAR BLOCK [QRS AXIS > 109, INFERIOR Q] PROBABLE LIMB LEAD REVERSAL NO PREVIOUS ECG AVAILABLE FOR COMPARISON Electronically Signed On 08-08-2022 9:36:51 (3) Altered mental status: Code(s): R41.82 - Altered mental status, unspecified Status: Acute Assessment and Plan: Likely secondary to above Supportive care CT of the head with no acute stroke (4) Acute kidney injury superimposed on CKD: Code(s): N17.9 - Acute kidney failure, unspecified; N18.9 - Chronic kidney disease, unspecified Status: Acute Assessment and Plan: Likely pre renal on chronic kidney disease Fluid resuscitation Blood transfusion BMP in a.m. Renal ultrasound in a.m. (5) Congestive heart failure: Code(s): I50.9 - Heart failure, unspecified Status: Acute Assessment and Plan: Will obtain BNP Echocardiogram in a.m. (6) Acute UTI: Code(s): N39.0 - Urinary tract infection, site not specified Status: Acute Assessment and Plan: Patient has been started on vancomycin History of MRSA in urine Subjective Date/time seen: 08/29/22 12:22 Interval history: Admit to [facility] tele Type and screen and type and crossmatch Transfuse 2 units of pack red blood cells GI consult PPI Supportive care Continue to monitor 08/29/2022 interval history:87 y/o presented with AMS is found to have significant anemia with Hgb of 6, patient is poor historian and unable to provider ROS or history seen by GI and suspect GI bleeding, patient hgb drop to 5.2 after receiving 2 units of PRBC, patient hgb was slowly trending down but stable and it is now 8.1 today, patient and family do not want further evaluation with EGD or colonoscopy, patient is also found to have elevated tropes, on 08/22 late afternoon, patient did
[2022-08-30] VITALS (7 sets, daily range): BP systolic 149–186; BP diastolic 85–93; PULSE 70–103; RESP 18–21; TEMP 36.6–36.7; O2SAT 97–100
[2022-08-30] MEDS: MORPHINE SULFATE (*CRX) 2 MG/ML INJ IV PUSH ×2 (03:12→12:25)
[2022-08-30 05:41] LABS: Hematocrit 24.5 % (42.0-52.0); Hemoglobin 7.5 g/dL (14.0-18.0); Mean Corpuscular HGB Conc 30.6 g/dl (32-36); Mean Corpuscular Hemoglobin 30.6 pg (26-34); Mean Platelet Volume 10.1 fl (7.4-10.4); Platelet Count Result 191 k/mm3 (150-375); Red Blood Count 2.45 M/mm3 (4.6-6.20); Red Cell Distribution Width 15.1 % (11.5-14.5); White Blood Count 6.8 K/mm3 (4.5-10.0)
[2022-08-30 05:59] LABS: Anion Gap 9 mmol/L (8-16); Blood Urea Nitrogen 51 mg/dL (9-20); Calcium 9.1 mg/dL (8.4-10.2); Carbon Dioxide 14 mmol/L (22-30); Chloride 113 mmol/L (98-107); Estimated CRCL calculation 15 ml/min; Estimated Glomerular Filt Rate 17; Glucose 142 mg/dL (65-110); Magnesium 1.9 mg/dL (1.6-2.3); Potassium 4.4 mmol/L (3.4-5.0); Sodium 136 mmol/L (137-145)
[2022-08-30] MEDS: PANTOPRAZOLE 40 MG TABLET PO (09:13)
[2022-08-30] MEDS: ISOSORBIDE MONONITRATE 30 MG TAB.ER.24H PO (09:14)
[2022-08-30] MEDS: METOPROLOL TARTRATE 25 MG TABLET PO (09:14)
[2022-08-30] MEDS: MICAFUNGIN SODIUM 100 MG in SODIUM CHLORIDE 0.9% IV 100 ML IVPB (09:14)
--- NOTE | 2022-08-30 10:47 | PCNFU ---
Nutrition Follow-Up Complete: Inadequate oral intake related to loss of appetite, food choices as evidenced by patient report, poor intakes 0-45% Goal: Improve PO intake to at least 50% meals and supplements Maintain weight during admission Patient is progressing towards goal. We will continue current goal. Pt current nutrition is Regular. Last recorded weight is 100 kg. Bowel Motility: +Bm reported 08/28 Labs Reviewed:Glu 142, BUN 51, ,GFR 17, Hct 24.5,Hgb 7.5 Meds Noted:Protonix, Lopressor Skin: WNL Additional Notes: Patient remains on a regular diet. Oral intake has been fair 25-100% of meals. Patient is tolerating diet supplements of Ensure Compact BID. Prefers vanilla flavor, diet office informed. Agree with diet orders. Monitoring intakes, weights, labs, supplement tolerance, plan of care Follow up in 7 days
--- NOTE | 2022-08-30 12:52 | PM.DS ---
DS: Admitting Diagnosis Discharge Date 08/30/2022 Admitting Diagnosis Altered mental status DS: Discharge Diagnosis Discharge Diagnosis (1) Acute blood loss anemia: Code(s): D62 - Acute posthemorrhagic anemia Status: Acute Assessment and Plan: Admit to [facility] tele Type and screen and type and crossmatch Transfuse 2 units of pack red blood cells GI consult PPI Supportive care Continue to monitor 08/29/2022 interval history:87 y/o presented with AMS is found to have significant anemia with Hgb of 6, patient is poor historian and unable to provider ROS or history seen by GI and suspect GI bleeding, patient hgb drop to 5.2 after receiving 2 units of PRBC, patient hgb was slowly trending down but stable and it is now 8.1 today, patient and family do not want further evaluation with EGD or colonoscopy, patient is also found to have elevated tropes, on 08/22 late afternoon, patient did have c/o of CP and patient was given morphine 2mg IV x1, CP resolved, there were no acute changes on EKG and patient with profound anemia biofuels product development manager suspect demand ischemia due to bleeding, and recommended conservative management. on 08/24 patient both blood culture and urine are growing Chrissie glabrata, discussed with ID pharmacist started patient on Micafungin, patient had repeat blood culture in 08/26 no growth so far, ID pharmacist has sent for sensitivity and further recommendation to follow, plan is to discharge home tomorrow, on IV abx, and follow up on sensitivity and if needed adjust abx, will monitor and further recommendation to follow, Patient has no new symptoms, on 08/23 spoke with patient grand Awan and gave updates, will continue to monitor. (2) Non-ST elevation [place] (NSTEMI): Code(s): I21.4 - Non-ST elevation (NSTEMI) myocardial infarction Status: Acute Assessment and Plan: Likely to be type 2 secondary to demand ischemia also in the setting of chronic renal failure and acute on chronic renal failure Continue to trend troponins Cardiology consult Echocardiogram in a.m. Rate 61 [place] 179 QRSd 162 QT 450 QTc 457 --[place]-- P 147 QRS 161 T 183 SINUS RHYTHM RIGHT BUNDLE BRANCH BLOCK [120+ ms QRS DURATION, UPRIGHT V1, 40+ ms S IN I/aVL/V4/V5/V6] LEFT POSTERIOR FASCICULAR BLOCK [QRS AXIS > 109, INFERIOR Q] PROBABLE LIMB LEAD REVERSAL NO PREVIOUS ECG AVAILABLE FOR COMPARISON Electronically Signed On 08-08-2022 9:36:51 (3) Altered mental status: Code(s): R41.82 - Altered mental status, unspecified Status: Acute Assessment and Plan: Likely secondary to above Supportive care CT of the head with no acute stroke (4) Acute kidney injury superimposed on CKD: Code(s): N17.9 - Acute kidney failure, unspecified; N18.9 - Chronic kidney disease, unspecified Status: Acute Assessment and Plan: Likely pre renal on chronic kidney disease Fluid resuscitation Blood transfusion BMP in a.m. Renal ultrasound in a.m. (5) Congestive heart failure: Code(s): I50.9 - Heart failure, unspecified Status: Acute Assessment and Plan: Will obtain BNP Echocardiogram in a.m. (6) Acute UTI: Code(s): N39.0 - Urinary tract infection, site not specified Status: Acute Assessment and Plan: Patient has been started on vancomycin History of MRSA in urine DS: Summary Hospital Course Reason for hospitalization: Altered mental status HPI Narrative: This is an 87-year-old male with past medical history significant for chronic kidney disease, chronic indwelling [place] catheter, dyslipidemia, MRSA recurrent urinary tract infection, type 2 diabetes mellitus, benign prostatic hyperplasia.? Recently admitted and discharged from [facility] and treated for the urinary tract infection sent to skilled nursing on linezolid.? Patient was brought today for evaluation due to altered mental status.? Patient is unable to give any history due to lethargy, obtundation.?
[2022-08-30] MEDS: LIDOCAINE HCL 1% LOCAL INJ 2 ML AMPUL 5 ML INFILTRATE (13:30)
== END 2022-08-30 19:59 | disposition home health service (06) | DRG 377 ==
LOC: ANHED 08-22 00:03 → ANH2MED 08-22 01:40
PROVIDERS: Internal Medicine; Internal Medicine Gastroenterology; Admitting Provider Internal Medicine; Emergency Provider Emergency Medicine; PCP Internal Medicine; Visit Provider Family Medicine
DX: K92.2 Gastrointestinal hemorrhage, unspecified (principal); I21.A1 Myocardial infarction type 2; I50.43 Acute on chronic combined systolic (congestive) and diastolic (congestive) heart failure; D62 Acute posthemorrhagic anemia; N17.9 Acute kidney failure, unspecified; T83.511A Infection and inflammatory reaction due to indwelling urethral catheter, initial encounter; B37.49 Other urogenital candidiasis; I13.0 Hypertensive heart and chronic kidney disease with heart failure and stage 1 through stage 4 chronic kidney disease, or unspecified chronic kidney disease; F05 Delirium due to known physiological condition; N18.9 Chronic kidney disease, unspecified; F03.90 Unspecified dementia, unspecified severity, without behavioral disturbance, psychotic disturbance, mood disturbance, and anxiety; N40.0 Benign prostatic hyperplasia without lower urinary tract symptoms; E11.22 Type 2 diabetes mellitus with diabetic chronic kidney disease; E86.0 Dehydration; E78.5 Hyperlipidemia, unspecified; D63.1 Anemia in chronic kidney disease; Z66 Do not resuscitate
CPT/HCPCS: 36415; 36430; 36569; 51702; 70450; 71045; 76775; 80048; 80053; 80202; 81001; 83540; 83550; 83605; 83735; 84484; 85014; 85018; 85025; 85027; 85610; 85730; 86850; 86900; 86901; 86923; 87040; 87077; 87086; 87088; 87106; 87147; 87181; 87186; 93005; 93306; 97162; 99285; A9270; C1751; C9113; J1450; J2248; J2270; J3370; J7030; J7040; J7050; P9016

== ENCOUNTER 2022-09-05 08:25 | Inpatient (IN) | payer MEDICARE, SELFPAY ==
[2022-09-05] VITALS (9 sets, daily range): BP systolic 118–150; BP diastolic 58–79; PULSE 67–85; RESP 12–24; TEMP 35.9–36.6; O2SAT 96–100; BMI 29.4
--- NOTE | ~2022-09-05 | US_ITS ---
EXAMINATION: US venous doppler UE RT DATE: 09/08/2022 13:24 INDICATION: Right upper limb edema. TECHNIQUE: Grayscale ultrasound images without and with compression and Doppler ultrasound images of the right upper extremity veins were obtained. COMPARISON: None. FINDINGS: The visualized portions of the right internal jugular vein, subclavian vein, axillary vein, brachial veins, basilic vein, cephalic vein, radial vein, and ulnar vein are patent. IMPRESSION: 1. No deep venous thrombosis. Reviewed, dictated and finalized at location A.
--- NOTE | ~2022-09-05 | XR_ITS ---
EXAMINATION: XR chest 1V portable DATE: 09/05/2022 09:03 INDICATION: Pneumonia TECHNIQUE: frontal view of the chest was obtained. COMPARISON: Chest radiograph dated 08/22/2022 FINDINGS: Opacities at the bilateral lower lung zones, left greater than right with blunting at the costophreni c angles consistent with small bilateral pleural effusions and associated atelectasis and/or pneumoni a. No pneumothorax. Couple calcified nodules in the right lung consistent with old granulomatous dise ase. Heart size is normal. Moderate sized hiatal hernia. Peripheral IV at the left upper arm. A few o ld left-sided rib fractures. IMPRESSION: 1. Bibasilar opacities, left greater than right, consistent with small bilateral pleural effusions an d associated atelectasis and/or pneumonia. 2. Moderate-sized hiatal hernia. Reviewed, dictated and finalized at location B. IMPRESSION: 1. Bibasilar opacities, left greater than right, consistent with small bilatera l pleural effusions and associated atelectasis and/or pneumonia. 2. Moderate-sized hiatal hernia.
[2022-09-05 06:46] LABS: Glucose Point of Care 64 mg/dl (65-105)
[2022-09-05 07:25] LABS: Glucose Point of Care 78 mg/dl (65-105)
--- NOTE | 2022-09-05 08:22 | PM.IMHP ---
H&P: HPI History of Present Illness Date/Time: 09/05/22 08:22 Chief Complaint: hypoglycemia Narrative: This is an 87 y/o presented to OSH with AMS is found to have significant hypoglycemia, patient is poor historian and unable to provider ROS or history. Per EMS sheet, fingerstick was below the level of detection and BP was 240/115. He has a past medical history including but not limited to chronic kidney disease, chronic indwelling Flores catheter, dyslipidemia, MRSA recurrent urinary tract infection, insulinodependent type 2 diabetes mellitus, benign prostatic hyperplasia.? He was recently admitted and discharged from [facility] (08/22/2022-08/30/2022)and treated for severe anemia. During that recent admission, preliminary workup was significant for a hemoglobin of 6 hematocrit of 19 creatinine of 4 BUN 76, initial troponin was 5.6.? A urinalysis showed numerous WBCs. He was evaluated by GI and suspect GI bleeding, patient hgb drop to 5.2 after receiving 2 units of PRBCs. Patient and family do not want further evaluation with EGD or colonoscopy,? patient is also found to have elevated troponins, CP resolved with morphine 2mg IV x1;? 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 On 08/24? patient both blood culture and urine are? growing Chrissie glabrata; patient was started on Micafungin, patient had repeat blood culture in 08/26 no growth so far . In [facility], his CBC shows the risk of 5.1, hemoglobin 7.1, hematocrit 22.7 and platelet count 203. [facility] shows a sodium of 137, potassium 3.4, chloride 109, bicarb 20, glucose 61, BUN 39, creatinine 2.83. LFTs were alkaline phosphatase 68, a ALT 21, AST 22, total bilirubin 0.1, calcium 8.5, total protein 5.3, albumin of 2.5, globulin 2.8. Lactic acid was 1.3. Troponin was 0.1. Urine had a specific gravity of 10 15, negative for any treat, 41-60 WBC, 11-20 a a red blood cell, many calcium oxalate crystals and few budding yeast. Point of care glucose was 102. Repeat point of care was 57->140-> 96->81->75->115->116. Head CT CT showed no acute intracranial findings. EKG showed atrial fibrillation with a competing junctional pacemaker, right bundle branch block, inferior infarct, age undetermined, T-wave abnormality, consider lateral ischemia. Decision was made to admit the patient under observation. Patient family opted for transfer to [place]. Review of Systems Review of Systems: ROS unobtainable: Yes unobtainable due to mental status PMFSH Past Medical History Medical History (Updated 09/05/22 @ 09:10 by Negra Dawson MD) Acute kidney injury superimposed on CKD Acute UTI Altered mental status Congestive heart failure Delirium due to general medical condition Dementia 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 Family History Family History Other Unknown family medical history Social History Social History Smoking status: Never smoker Alcohol intake: never Substance use: never Substance use type: does not use Lack of Transportation: No Lack of Food: Never True Current Housing: I Have Housing Concerned About Future Housing: No Difficulty Paying Gas/Electric Bills: No Difficulty Paying for Meds: No Currently Unemployed: No Education: Grade School Difficulty w/ Childcare or Family Care: No Spiritual care concerns: No Meds Home Medications and Allergies Home Medications Medication Instructions Recorded Confirmed Type finasteride 5 mg tablet 5 mg PO DAILY #30 tabs 07/11/22 09/05/22 Rx empagliflozin 10 mg tablet 10 mg PO DAILY 08/08/22 09/05/22 History (Jardiance) escitalopram oxalate 10 mg tablet 10 mg PO HS 08/08/22 09/05/22 History ferrous sulfate 325 mg (65 mg 325 mg PO DAILY 08/08/22
--- NOTE | 2022-09-05 08:23 | ECG_ITS ---
Measurements Intervals [place] Rate: 73 P: 47 OK: 175 QRS: 9 QRSD: 149 T: -18 QT: 429 QTc: 475 Interpretive Statements SINUS RHYTHM RIGHT BUNDLE BRANCH BLOCK CONSIDER INFERIOR INFARCT, AGE INDETERMINATE BORDERLINE T WAVE ABNORMALITY- ANTERIOR LEADS ABNORMAL ECG COMPARED TO ECG 08/22/2022 15:19:15 T WAVE ABNORMALITY NOW PRESENT Electronically Signed On 09-05-2022 13:30:48 CDT by David Elizalde D.O.
[2022-09-05 08:41] LABS: Basophils Percent Auto 0.6 % (0.2-1.2); Eosinophils Absolute Auto 0.2 K/mm3 (0-0.3); Eosinophils Percent Auto 4.2 % (0-4.4); Hematocrit 22.3 % (42.0-52.0); Immature Granulocyte Absolute 0.01 K/mm3 (0.00-0.031); Immature Granulocyte Percent A 0.2 % (0-0.5); Lymphocytes Absolute Auto 0.64 K/mm3 (0.9-3.2); Lymphocytes Percent Auto 12.7 % (18.3-44.2); Mean Corpuscular HGB Conc 31.4 g/dl (32-36); Mean Corpuscular Hemoglobin 29.9 pg (26-34); Mean Corpuscular Volume 95.3 fl (80-100); Mean Platelet Volume 10.2 fl (7.4-10.4); Monocytes Absolute Auto 0.5 K/mm3 (0.1-0.6); Monocytes Percent Auto 10.8 % (2.6-8.5); Neutrophils Absolute Auto 3.6 K/mm3 (1.3-6.7); Neutrophils Percent Auto 71.5 % (45.5-73.1); Platelet Count Result 188 k/mm3 (150-375); Red Blood Count 2.34 M/mm3 (4.6-6.20); Red Cell Distribution Width 15.1 % (11.5-14.5)
[2022-09-05 08:51] LABS: Anion Gap 7 mmol/L (8-16); Blood Urea Nitrogen 39 mg/dL (9-20); Calcium 8.4 mg/dL (8.4-10.2); Carbon Dioxide 20 mmol/L (22-30); Chloride 108 mmol/L (98-107); Estimated CRCL calculation 21 ml/min; Estimated Glomerular Filt Rate 24; Glucose 78 mg/dL (65-110); Potassium 3.7 mmol/L (3.4-5.0); Sodium 135 mmol/L (137-145)
--- NOTE | 2022-09-05 09:29 | PCSTNOTE ---
Please refer to the Bedside Swallow Evaluation in the EMR. Please note, silent aspiration cannot be ruled out at bedside.
[2022-09-05 09:33] LABS: Glucose Point of Care 88 mg/dl (65-105)
[2022-09-05] MEDS: FERROUS SULFATE 324 MG TABLET PO (10:08)
[2022-09-05] MEDS: FINASTERIDE 5 MG TABLET PO (10:08)
[2022-09-05] MEDS: SODIUM BICARBONATE TAB 650 MG TABLET PO ×3 (10:08→16:09)
[2022-09-05] MEDS: PANTOPRAZOLE 40 MG TABLET PO ×2 (10:08→20:13)
[2022-09-05] MEDS: ISOSORBIDE MONONITRATE 30 MG TAB.ER.24H PO (10:08)
[2022-09-05 11:58] LABS: Appearance Urine Turbid (Clear); Bacteria Urine None Seen /hpf; Bilirubin Urine Negative (Negative); Blood Urine 1+ (Negative); Color Urine Yellow (Yellow); Glucose Urine UA 2+ mg/dL (Negative); Ketones Urine Negative (Negative); Leukocyte Esterase Ur 3+ LEU/UL (Negative); Need Manual Microscopic Need Manual; Nitrate Urine Negative (Negative); Non Pathogenic Casts >20; Protein Urine 1+ mg/dL (Negative); Specific Grav Ur 1.016 (1.001-1.035); Squamous Epithelial Cell Urine Few /hpf (Few); Urobilinogen Urine 0.2 mg/dL (<2.0); WBC Urine >100 /hpf; pH Urine 5.5 (5.0-9.0)
[2022-09-05 12:01] LABS: Glucose Point of Care 82 mg/dl (65-105)
[2022-09-05 12:14] LABS: RBC Urine Unable to determine /hpf (0-2)
[2022-09-05 12:15] LABS: Budding Yeast Urine Present /hpf; Mucus Urine Present /lpf
[2022-09-05 12:54] LABS: Add Urine Microscopic? YES
--- NOTE | 2022-09-05 13:23 | WPDPN ---
Progress Note: A&P Assessment and Plan (1) Hypoglycemia: Code(s): E16.2 - Hypoglycemia, unspecified Status: Acute Assessment and Plan: Patient presented with altered mental status secondary to for hypoglycemia. He will be admitted under observation for serial blood glucose monitoring. Maintain fall precautions. Hold jardiance and lantus. Resume at half dose tomorrow. Reduce insulin requirements may reflect worsening renal function. Interestingly, in this case, creatinine has been improving. 09/05/2022 interval history: patient 87 y/o male was admitted with anemia, NSETMI and was found to have blood culture was positive for seda gladrata and discharged on Micafungin IV, patient is readmitted with hypoglycemia has he taking insulin for diabetes but may not be eating eating enough resulting in hypoglyemia, will reduce his insulin and monitor, while in the hosptial will complete remaining 3 doses of Micagunigin, will monitor, patient family is considering hospice for the patient and further recommendation to follow. (2) Anemia: Onset Date: ~08/2022 Qualifiers: Qualified Code(s): D50.0 - Iron deficiency anemia secondary to blood loss (chronic) Code(s): D64.9 - Anemia, unspecified Status: Acute Assessment and Plan: Anemia is suspected to be due to ongoing GI losses. Patient was started on pantoprazole. Historically patient and family did decline invasive workup. Hemoglobin on admission is 7, slightly below discharge hemoglobin of 7.5 on August 30, 2022. Hematocrit is 22.3. Anemia is normochromic and normocytic. Monitor CBC. Transfuse for hemoglobin less than 7. (3) Altered mental status: Code(s): R41.82 - Altered mental status, unspecified Status: Acute Assessment and Plan: Patient with chronic dementia, admitted with altered mental status secondary to hypoglycemia. (4) Acute kidney injury superimposed on CKD: Code(s): N17.9 - Acute kidney failure, unspecified; N18.9 - Chronic kidney disease, unspecified Status: Acute Assessment and Plan: Recovering acute kidney injury with creatinine improved from 3.6 on August 21-2.6 today. Please renally dose medication and avoid any nephrotoxins. (5) Congestive heart failure: Code(s): I50.9 - Heart failure, unspecified Status: Acute Assessment and Plan: Patient is breathing comfortably on room air and lying flat without issues. No evidence of acute exacerbation. Recent NSTEMI was deemed to due to demand mismatch. Continue home meds. (6) Hypertension: Code(s): I10 - Essential (primary) hypertension Status: Acute Assessment and Plan: EMS reported uncontrolled blood pressure 240/115. He blood pressure is moderately controlled at 146/78. Patient is on tamsulosin and metoprolol at home. Plan DVT prophylaxis: [place]. Subjective Date/time seen: 09/05/22 13:23 Interval history: hypoglycemia HPI-Narrative: This is an 87 y/o presented to OSH with AMS is found to have significant hypoglycemia, patient is poor historian and unable to provider ROS or history. Per EMS sheet, fingerstick was below the level of detection and BP was 240/115.? He has a past medical history including but not limited to chronic kidney disease, chronic indwelling Flores catheter, dyslipidemia, MRSA recurrent urinary tract infection, insulinodependent type 2 diabetes mellitus, benign prostatic hyperplasia.? He was recently admitted and discharged from [facility] (08/22/2022-08/30/2022)and treated for severe anemia. During that recent admission, preliminary workup was significant for a hemoglobin of 6 hematocrit of 19 creatinine of 4 BUN 76, initial troponin was 5.6.? A urinalysis showed numerous WBCs. He was evaluated by GI and suspect GI bleeding, patient hgb drop to 5.2 after receiving 2 units of PRBCs.? Patient and family do not want further evaluation with EGD or colonoscopy,? patient is al
[2022-09-05] MEDS: MICAFUNGIN SODIUM 100 MG in SODIUM CHLORIDE 0.9% IV 100 ML IVPB (13:44)
[2022-09-05] MEDS: DEXTROSE 50% 25 GM/50 ML SYRINGE IV PUSH ×3 (15:23→22:10)
--- NOTE | 2022-09-05 15:33 | PCCCNOTE ---
On 09/05/22, the student, [Linda Valencia], provided care and completed [facility] documentation on this patient. I have reviewed the student's documentation and agree with the findings.
[2022-09-05 15:44] LABS: Glucose Point of Care 107 mg/dl (65-105)
[2022-09-05] MEDS: DEXTROSE 5%/0.45% SOD CHL 1,000 ML 75 ML IV CONT (16:06)
[2022-09-05 16:17] LABS: Glucose Point of Care 35 mg/dl (65-105)
[2022-09-05 17:08] LABS: Glucose Point of Care 73 mg/dl (65-105)
--- NOTE | 2022-09-05 17:21 | PC.NURSE ---
This patient, Karl Thompson, was received from IMU on 09/05/22 at 1645. Report received from RUBI Vargas. Patient/family oriented to unit policies and routines
--- NOTE | 2022-09-05 19:07 | PC.NURSE ---
This patient, Karl Thompson, was transferred to [facility] on 09/05/22 at 1637. Personal belongings sent with patient. Report given to RUBI Coburn. Appropriate documentation sent with patient.
[2022-09-05] MEDS: ESCITALOPRAM OXALATE 10 MG TABLET PO (20:12)
[2022-09-05] MEDS: TAMSULOSIN HCL 0.4 MG CAPSULE PO (20:13)
[2022-09-05] MEDS: PRAVASTATIN SODIUM 20 MG TABLET 40 MG PO (20:13)
[2022-09-05] MEDS: METOPROLOL TARTRATE 25 MG TABLET PO (20:25)
[2022-09-05 20:35] LABS: Glucose Point of Care 55 mg/dl (65-105)
[2022-09-05 21:57] LABS: Glucose Point of Care 63 mg/dl (65-105)
[2022-09-05 22:48] LABS: Glucose Point of Care 123 mg/dl (65-105)
[2022-09-05 23:25] LABS: Glucose Point of Care 103 mg/dl (65-105)
[2022-09-06] MEDS: DEXTROSE 5% 1,000 ML 1,000 ML 100 ML IVPB (00:08)
[2022-09-06 00:55] LABS: Glucose Point of Care 92 mg/dl (65-105)
[2022-09-06] MEDS: DEXTROSE 10% 1,000 ML 75 ML IV CONT (01:20)
[2022-09-06 02:07] LABS: Glucose Point of Care 109 mg/dl (65-105)
[2022-09-06 05:19] LABS: Glucose Point of Care 158 mg/dl (65-105)
[2022-09-06 07:14] VITALS: BP 156/77; PULSE 70; RESP 14; TEMP 36.4; O2SAT 100
[2022-09-06 07:38] LABS: Glucose Point of Care 177 mg/dl (65-105)
[2022-09-06 07:58] LABS: Glucose Point of Care 216 mg/dl (65-105)
[2022-09-06] MEDS: FERROUS SULFATE 324 MG TABLET PO (08:38)
[2022-09-06] MEDS: FINASTERIDE 5 MG TABLET PO (08:38)
[2022-09-06] MEDS: ISOSORBIDE MONONITRATE 30 MG TAB.ER.24H PO (08:39)
[2022-09-06] MEDS: PANTOPRAZOLE 40 MG TABLET PO ×2 (08:39→21:25)
[2022-09-06] MEDS: FLUCONAZOLE 100 MG TABLET 800 MG PO (08:39)
[2022-09-06] MEDS: SODIUM BICARBONATE TAB 650 MG TABLET PO ×3 (08:39→17:35)
[2022-09-06 11:23] LABS: Glucose Point of Care 230 mg/dl (65-105)
[2022-09-06 14:00] VITALS: BP 150/70; PULSE 75; RESP 16; TEMP 36.5; O2SAT 100
--- NOTE | 2022-09-06 14:06 | WPDPN ---
Progress Note: A&P Assessment and Plan (1) Hypoglycemia: Code(s): E16.2 - Hypoglycemia, unspecified Status: Acute Assessment and Plan: Patient presented with altered mental status secondary to for hypoglycemia. He will be admitted under observation for serial blood glucose monitoring. Maintain fall precautions. Hold jardiance and lantus. Resume at half dose tomorrow. Reduce insulin requirements may reflect worsening renal function. Interestingly, in this case, creatinine has been improving. 09/06/2022 interval history: patient 87 y/o male was admitted with anemia, NSETMI and was found to have blood culture was positive for seda gladrata and discharged on Micafungin IV, patient is readmitted with hypoglycemia has he taking insulin for diabetes but may not be eating eating enough resulting in hypoglyemia, will stop insulin, patient was started of d545NS and encourage oral intake, D/W ID pharmacist switch Micagungin to Diflucan 400mg daily for next 3 day, while in the hosptial will complete remaining 3 doses. will monitor, on 09/05 family had decided about hospice however today family has decided against hospice, will continue current management. (2) Anemia: Onset Date: ~08/2022 Qualifiers: Qualified Code(s): D50.0 - Iron deficiency anemia secondary to blood loss (chronic) Code(s): D64.9 - Anemia, unspecified Status: Acute Assessment and Plan: Anemia is suspected to be due to ongoing GI losses. Patient was started on pantoprazole. Historically patient and family did decline invasive workup. Hemoglobin on admission is 7, slightly below discharge hemoglobin of 7.5 on August 30, 2022. Hematocrit is 22.3. Anemia is normochromic and normocytic. Monitor CBC. Transfuse for hemoglobin less than 7. (3) Altered mental status: Code(s): R41.82 - Altered mental status, unspecified Status: Acute Assessment and Plan: Patient with chronic dementia, admitted with altered mental status secondary to hypoglycemia. (4) Acute kidney injury superimposed on CKD: Code(s): N17.9 - Acute kidney failure, unspecified; N18.9 - Chronic kidney disease, unspecified Status: Acute Assessment and Plan: Recovering acute kidney injury with creatinine improved from 3.6 on August 21-2.6 today. Please renally dose medication and avoid any nephrotoxins. (5) Congestive heart failure: Code(s): I50.9 - Heart failure, unspecified Status: Acute Assessment and Plan: Patient is breathing comfortably on room air and lying flat without issues. No evidence of acute exacerbation. Recent NSTEMI was deemed to due to demand mismatch. Continue home meds. (6) Hypertension: Code(s): I10 - Essential (primary) hypertension Status: Acute Assessment and Plan: EMS reported uncontrolled blood pressure 240/115. He blood pressure is moderately controlled at 146/78. Patient is on tamsulosin and metoprolol at home. Plan DVT prophylaxis: [place]. Subjective Date/time seen: 09/06/22 14:06 Interval history: hypoglycemia HPI-Narrative: This is an 87 y/o presented to OSH with AMS is found to have significant hypoglycemia, patient is poor historian and unable to provider ROS or history. Per EMS sheet, fingerstick was below the level of detection and BP was 240/115.? He has a past medical history including but not limited to chronic kidney disease, chronic indwelling Flores catheter, dyslipidemia, MRSA recurrent urinary tract infection, insulinodependent type 2 diabetes mellitus, benign prostatic hyperplasia.? He was recently admitted and discharged from [facility] (08/22/2022-08/30/2022)and treated for severe anemia. During that recent admission, preliminary workup was significant for a hemoglobin of 6 hematocrit of 19 creatinine of 4 BUN 76, initial troponin was 5.6.? A urinalysis showed numerous WBCs. He was evaluated by GI and suspect GI bleeding, patient hgb drop
[2022-09-06 16:26] LABS: Glucose Point of Care 205 mg/dl (65-105)
[2022-09-06 21:07] LABS: Glucose Point of Care 203 mg/dl (65-105)
[2022-09-06] MEDS: ESCITALOPRAM OXALATE 10 MG TABLET PO (21:25)
[2022-09-06] MEDS: TAMSULOSIN HCL 0.4 MG CAPSULE PO (21:25)
[2022-09-06] MEDS: PRAVASTATIN SODIUM 20 MG TABLET 40 MG PO (21:25)
[2022-09-06] MEDS: METOPROLOL TARTRATE 25 MG TABLET PO (21:25)
[2022-09-06 22:22] VITALS: BP 173/84; PULSE 78; RESP 14; TEMP 36.1; O2SAT 100
[2022-09-07] VITALS (9 sets, daily range): BP systolic 139–163; BP diastolic 71–81; PULSE 70–88; RESP 14–18; TEMP 36.1–36.6; O2SAT 98–100
[2022-09-07 07:32] LABS: Glucose Point of Care 141 mg/dl (65-105)
[2022-09-07 08:24] LABS: Hematocrit 22.4 % (42.0-52.0); Hemoglobin 7.1 g/dL (14.0-18.0); Mean Corpuscular HGB Conc 31.7 g/dl (32-36); Mean Corpuscular Volume 94.5 fl (80-100); Mean Platelet Volume 10.1 fl (7.4-10.4); Platelet Count Result 176 k/mm3 (150-375); Red Blood Count 2.37 M/mm3 (4.6-6.20); Red Cell Distribution Width 14.8 % (11.5-14.5); White Blood Count 4.1 K/mm3 (4.5-10.0)
[2022-09-07 08:35] LABS: Anion Gap 6 mmol/L (8-16); Blood Urea Nitrogen 31 mg/dL (9-20); Calcium 8.7 mg/dL (8.4-10.2); Carbon Dioxide 23 mmol/L (22-30); Chloride 106 mmol/L (98-107); Estimated CRCL calculation 19 ml/min; Estimated Glomerular Filt Rate 22; Glucose 134 mg/dL (65-110); Magnesium 1.7 mg/dL (1.6-2.3); Potassium 3.7 mmol/L (3.4-5.0); Sodium 135 mmol/L (137-145)
[2022-09-07] MEDS: SODIUM BICARBONATE TAB 650 MG TABLET PO ×3 (09:07→16:27)
[2022-09-07] MEDS: FERROUS SULFATE 324 MG TABLET PO (09:07)
[2022-09-07] MEDS: ISOSORBIDE MONONITRATE 30 MG TAB.ER.24H PO (09:07)
[2022-09-07] MEDS: FLUCONAZOLE 100 MG TABLET 400 MG PO (09:07)
[2022-09-07] MEDS: PANTOPRAZOLE 40 MG TABLET PO ×2 (09:07→21:08)
[2022-09-07] MEDS: FINASTERIDE 5 MG TABLET PO (09:07)
[2022-09-07 11:10] LABS: Glucose Point of Care 81 mg/dl (65-105)
[2022-09-07 11:35] LABS: Glucose Point of Care 127 mg/dl (65-105)
--- NOTE | 2022-09-07 13:29 | WPDPN ---
Progress Note: A&P Assessment and Plan (1) Hypoglycemia: Code(s): E16.2 - Hypoglycemia, unspecified Status: Acute Assessment and Plan: Patient presented with altered mental status secondary to for hypoglycemia. He will be admitted under observation for serial blood glucose monitoring. Maintain fall precautions. Hold jardiance and lantus. Resume at half dose tomorrow. Reduce insulin requirements may reflect worsening renal function. Interestingly, in this case, creatinine has been improving. 09/07/2022 interval history: patient 87 y/o male was admitted with anemia, NSETMI and was found to have blood culture was positive for seda gladrata and discharged on Micafungin IV, patient is readmitted with hypoglycemia has he taking insulin for diabetes but may not be eating eating enough resulting in hypoglyemia, will stop insulin, patient was started of d545NS and encourage oral intake, patient blood sugars now close to normal, will stop IVF and encourage patient oral intake, D/W ID pharmacist switch Micagungin to Diflucan 400mg daily for next 23 day, while in the hosptial will complete remaining 3 doses. will monitor, on 09/05 family had decided about hospice however on 09/06 family has decided against hospice, will continue current management (2) Anemia: Onset Date: ~08/2022 Qualifiers: Qualified Code(s): D50.0 - Iron deficiency anemia secondary to blood loss (chronic) Code(s): D64.9 - Anemia, unspecified Status: Acute Assessment and Plan: Anemia is suspected to be due to ongoing GI losses. Patient was started on pantoprazole. Historically patient and family did decline invasive workup. Hemoglobin on admission is 7, slightly below discharge hemoglobin of 7.5 on August 30, 2022. Hematocrit is 22.3. Anemia is normochromic and normocytic. Monitor CBC. Transfuse for hemoglobin less than 7. (3) Altered mental status: Code(s): R41.82 - Altered mental status, unspecified Status: Acute Assessment and Plan: Patient with chronic dementia, admitted with altered mental status secondary to hypoglycemia. (4) Acute kidney injury superimposed on CKD: Code(s): N17.9 - Acute kidney failure, unspecified; N18.9 - Chronic kidney disease, unspecified Status: Acute Assessment and Plan: Recovering acute kidney injury with creatinine improved from 3.6 on August 21-2.6 today. Please renally dose medication and avoid any nephrotoxins. (5) Congestive heart failure: Code(s): I50.9 - Heart failure, unspecified Status: Acute Assessment and Plan: Patient is breathing comfortably on room air and lying flat without issues. No evidence of acute exacerbation. Recent NSTEMI was deemed to due to demand mismatch. Continue home meds. (6) Hypertension: Code(s): I10 - Essential (primary) hypertension Status: Acute Assessment and Plan: EMS reported uncontrolled blood pressure 240/115. He blood pressure is moderately controlled at 146/78. Patient is on tamsulosin and metoprolol at home. Plan DVT prophylaxis: [place]. Subjective Date/time seen: 09/07/22 13:29 Interval history: hypoglycemia HPI-Narrative: This is an 87 y/o presented to OSH with AMS is found to have significant hypoglycemia, patient is poor historian and unable to provider ROS or history. Per EMS sheet, fingerstick was below the level of detection and BP was 240/115.? He has a past medical history including but not limited to chronic kidney disease, chronic indwelling Flores catheter, dyslipidemia, MRSA recurrent urinary tract infection, insulinodependent type 2 diabetes mellitus, benign prostatic hyperplasia.? He was recently admitted and discharged from [facility] (08/22/2022-08/30/2022)and treated for severe anemia. During that recent admission, preliminary workup was significant for a hemoglobin of 6 hematocrit of 19 creatinine of 4 BUN 76, initial troponin was 5.6.? A urin
[2022-09-07 16:41] LABS: Glucose Point of Care 124 mg/dl (65-105)
[2022-09-07 20:49] LABS: Glucose Point of Care 248 mg/dl (65-105)
[2022-09-07] MEDS: METOPROLOL TARTRATE 25 MG TABLET PO (21:08)
[2022-09-07] MEDS: ESCITALOPRAM OXALATE 10 MG TABLET PO (21:08)
[2022-09-07] MEDS: PRAVASTATIN SODIUM 20 MG TABLET 40 MG PO (21:08)
[2022-09-07] MEDS: TAMSULOSIN HCL 0.4 MG CAPSULE PO (21:08)
[2022-09-07] MEDS: SALINE LOCK FLUSH 10 ML IV PUSH (21:08)
[2022-09-07] MEDS: SODIUM CHLORIDE 0.9% IV 250 ML 30 ML IV CONT (21:55)
[2022-09-08 00:02] VITALS: BP 168/83; PULSE 63; RESP 18; TEMP 36.3; O2SAT 100
[2022-09-08 01:00] VITALS: BP 161/77; PULSE 67; RESP 18; TEMP 36.6; O2SAT 100
[2022-09-08] MEDS: TUBING, BLOOD PLUM PUMP TUBING 1 EACH XX (02:56)
[2022-09-08 06:00] VITALS: BP 191/89; PULSE 77; RESP 16; TEMP 36.5; O2SAT 98
[2022-09-08 06:32] LABS: Basophils Percent Auto 0.6 % (0.2-1.2); Eosinophils Absolute Auto 0.3 K/mm3 (0-0.3); Eosinophils Percent Auto 4.9 % (0-4.4); Hematocrit 25.6 % (42.0-52.0); Hemoglobin 8.4 g/dL (14.0-18.0); Immature Granulocyte Absolute 0.02 K/mm3 (0.00-0.031); Immature Granulocyte Percent A 0.4 % (0-0.5); Lymphocytes Percent Auto 13.6 % (18.3-44.2); Mean Corpuscular HGB Conc 32.8 g/dl (32-36); Mean Corpuscular Volume 91.4 fl (80-100); Mean Platelet Volume 10.3 fl (7.4-10.4); Monocytes Absolute Auto 0.7 K/mm3 (0.1-0.6); Neutrophils Absolute Auto 3.4 K/mm3 (1.3-6.7); Neutrophils Percent Auto 66.5 % (45.5-73.1); Platelet Count Result 170 k/mm3 (150-375); Red Cell Distribution Width 14.4 % (11.5-14.5); White Blood Count 5.2 K/mm3 (4.5-10.0)
[2022-09-08 06:57] VITALS: BP 171/101
[2022-09-08] MEDS: ISOSORBIDE MONONITRATE 30 MG TAB.ER.24H PO (07:00)
[2022-09-08 07:28] LABS: Glucose Point of Care 152 mg/dl (65-105)
[2022-09-08] MEDS: SODIUM BICARBONATE TAB 650 MG TABLET PO (09:57)
[2022-09-08] MEDS: FLUCONAZOLE 100 MG TABLET 400 MG PO (09:57)
[2022-09-08] MEDS: FINASTERIDE 5 MG TABLET PO (09:57)
[2022-09-08] MEDS: PANTOPRAZOLE 40 MG TABLET PO (09:57)
[2022-09-08] MEDS: FERROUS SULFATE 324 MG TABLET PO (09:58)
[2022-09-08] MEDS: hydrALAZINE HCL 25 MG TABLET PO (10:33)
[2022-09-08 11:29] LABS: Glucose Point of Care 141 mg/dl (65-105)
--- NOTE | 2022-09-08 11:40 | PCPTNOTE ---
Attempted evaluation at 1125, but patient refuses. Informed patient I will be back this afternoon to try again.
[2022-09-08 13:47] VITALS: BP 163/85; PULSE 71; RESP 16; TEMP 36.6; O2SAT 99
--- NOTE | 2022-09-08 13:53 | PCPTNOTE ---
Attempted to do evaluation again, but patient refuses. The patient has his head covered by blanket and does not want it removed.
--- NOTE | 2022-09-08 14:07 | WPDPN ---
Progress Note: A&P Assessment and Plan (1) Hypoglycemia: Code(s): E16.2 - Hypoglycemia, unspecified Status: Acute Assessment and Plan: Patient presented with altered mental status secondary to for hypoglycemia. He will be admitted under observation for serial blood glucose monitoring. Maintain fall precautions. Hold jardiance and lantus. Resume at half dose tomorrow. Reduce insulin requirements may reflect worsening renal function. Interestingly, in this case, creatinine has been improving. 09/08/2022 interval history: patient 87 y/o male was admitted with anemia, NSETMI and was found to have blood culture was positive for seda gladrata and discharged on Micafungin IV, patient is readmitted with hypoglycemia has he taking insulin for diabetes but may not be eating eating enough resulting in hypoglyemia, will stop insulin, patient was started of d545NS and encourage oral intake, patient blood sugars now close to normal, stopped IVF and encourage patient oral intake, D/W ID pharmacist switch Micagungin to Diflucan 400mg daily for next 3/3 day, today is the last day, while in the hosptial will complete remaining 3 doses today, . will monitor, on 09/05 family had decided about hospice however on 09/06 family has decided against hospice, patient will benefit with PT/OT, will continue current management. (2) Anemia: Onset Date: ~08/2022 Qualifiers: Qualified Code(s): D50.0 - Iron deficiency anemia secondary to blood loss (chronic) Code(s): D64.9 - Anemia, unspecified Status: Acute Assessment and Plan: Anemia is suspected to be due to ongoing GI losses. Patient was started on pantoprazole. Historically patient and family did decline invasive workup. Hemoglobin on admission is 7, slightly below discharge hemoglobin of 7.5 on August 30, 2022. Hematocrit is 22.3. Anemia is normochromic and normocytic. Monitor CBC. Transfuse for hemoglobin less than 7. (3) Altered mental status: Code(s): R41.82 - Altered mental status, unspecified Status: Acute Assessment and Plan: Patient with chronic dementia, admitted with altered mental status secondary to hypoglycemia. (4) Acute kidney injury superimposed on CKD: Code(s): N17.9 - Acute kidney failure, unspecified; N18.9 - Chronic kidney disease, unspecified Status: Acute Assessment and Plan: Recovering acute kidney injury with creatinine improved from 3.6 on August 21-2.6 today. Please renally dose medication and avoid any nephrotoxins. (5) Congestive heart failure: Code(s): I50.9 - Heart failure, unspecified Status: Acute Assessment and Plan: Patient is breathing comfortably on room air and lying flat without issues. No evidence of acute exacerbation. Recent NSTEMI was deemed to due to demand mismatch. Continue home meds. (6) Hypertension: Code(s): I10 - Essential (primary) hypertension Status: Acute Assessment and Plan: EMS reported uncontrolled blood pressure 240/115. He blood pressure is moderately controlled at 146/78. Patient is on tamsulosin and metoprolol at home. Plan DVT prophylaxis: [place]. Subjective Date/time seen: 09/08/22 14:07 Interval history: hypoglycemia HPI-Narrative: This is an 87 y/o presented to OSH with AMS is found to have significant hypoglycemia, patient is poor historian and unable to provider ROS or history. Per EMS sheet, fingerstick was below the level of detection and BP was 240/115.? He has a past medical history including but not limited to chronic kidney disease, chronic indwelling Flores catheter, dyslipidemia, MRSA recurrent urinary tract infection, insulinodependent type 2 diabetes mellitus, benign prostatic hyperplasia.? He was recently admitted and discharged from [facility] (08/22/2022-08/30/2022)and treated for severe anemia. During that recent admission, preliminary workup was significant for a hemoglobin of 6 hematocrit
--- NOTE | 2022-09-08 15:31 | PM.DS ---
DS: Admitting Diagnosis Discharge Date 09/08/2022 Admitting Diagnosis Hypoglycemia DS: Discharge Diagnosis Discharge Diagnosis (1) Hypoglycemia: Code(s): E16.2 - Hypoglycemia, unspecified Status: Acute Assessment and Plan: Patient presented with altered mental status secondary to for hypoglycemia. He will be admitted under observation for serial blood glucose monitoring. Maintain fall precautions. Hold jardiance and lantus. Resume at half dose tomorrow. Reduce insulin requirements may reflect worsening renal function. Interestingly, in this case, creatinine has been improving. 09/08/2022 interval history: patient 87 y/o male was admitted with anemia, NSETMI and was found to have blood culture was positive for seda gladrata and discharged on Micafungin IV, patient is readmitted with hypoglycemia has he taking insulin for diabetes but may not be eating eating enough resulting in hypoglyemia, will stop insulin, patient was started of [id number] and encourage oral intake, patient blood sugars now close to normal, stopped IVF and encourage patient oral intake, D/W ID pharmacist switch Micagungin to Diflucan 400mg daily for next 3/3 day, today is the last day, while in the hosptial will complete remaining 3 doses today, . will monitor, on 09/05 family had decided about hospice however on 09/06 family has decided against hospice, patient will benefit with PT/OT, will continue current management. (2) Anemia: Onset Date: ~08/2022 Qualifiers: Qualified Code(s): D50.0 - Iron deficiency anemia secondary to blood loss (chronic) Code(s): D64.9 - Anemia, unspecified Status: Acute Assessment and Plan: Anemia is suspected to be due to ongoing GI losses. Patient was started on pantoprazole. Historically patient and family did decline invasive workup. Hemoglobin on admission is 7, slightly below discharge hemoglobin of 7.5 on August 30, 2022. Hematocrit is 22.3. Anemia is normochromic and normocytic. Monitor CBC. Transfuse for hemoglobin less than 7. (3) Altered mental status: Code(s): R41.82 - Altered mental status, unspecified Status: Acute Assessment and Plan: Patient with chronic dementia, admitted with altered mental status secondary to hypoglycemia. (4) Acute kidney injury superimposed on CKD: Code(s): N17.9 - Acute kidney failure, unspecified; N18.9 - Chronic kidney disease, unspecified Status: Acute Assessment and Plan: Recovering acute kidney injury with creatinine improved from 3.6 on August 21 8-2.6 today. Please renally dose medication and avoid any nephrotoxins. (5) Congestive heart failure: Code(s): I50.9 - Heart failure, unspecified Status: Acute Assessment and Plan: Patient is breathing comfortably on room air and lying flat without issues. No evidence of acute exacerbation. Recent NSTEMI was deemed to due to demand mismatch. Continue home meds. (6) Hypertension: Code(s): I10 - Essential (primary) hypertension Status: Acute Assessment and Plan: EMS reported uncontrolled blood pressure 240/115. He blood pressure is moderately controlled at 146/78. Patient is on tamsulosin and metoprolol at home. Plan DVT prophylaxis: [place]. DS: Summary Hospital Course Reason for hospitalization: hypoglycemia Narrative: This is an 87 y/o presented to OSH with AMS is found to have significant hypoglycemia, patient is poor historian and unable to provider ROS or history. Per EMS sheet, fingerstick was below the level of detection and BP was 240/115.? He has a past medical history including but not limited to chronic kidney disease, chronic indwelling Flores catheter, dyslipidemia, MRSA recurrent urinary tract infection, insulinodependent type 2 diabetes mellitus, benign prostatic hyperplasia.? He was recently admitted and discharged from [facility] (08/22/2022-08/30/2022)and treated for severe anemia. During that re
[2022-09-08 16:30] LABS: Glucose Point of Care 159 mg/dl (65-105)
[2022-09-08] MEDS: NEOMYCIN/POLYMYXIN/BACITRACIN OINTMENT PACKET 1 PACKET (16:44)
== END 2022-09-08 17:52 | disposition home health service (06) | DRG 644 ==
LOC: ANHIMU 15:52 → ANH3MEDSUR 16:38
PROVIDERS: Admitting Provider Internal Medicine; PCP Internal Medicine; Visit Provider Family Medicine
DX: E16.1 Other hypoglycemia (principal); I13.0 Hypertensive heart and chronic kidney disease with heart failure and stage 1 through stage 4 chronic kidney disease, or unspecified chronic kidney disease; N17.9 Acute kidney failure, unspecified; N18.9 Chronic kidney disease, unspecified; I50.9 Heart failure, unspecified; D50.0 Iron deficiency anemia secondary to blood loss (chronic); F03.90 Unspecified dementia, unspecified severity, without behavioral disturbance, psychotic disturbance, mood disturbance, and anxiety; N40.0 Benign prostatic hyperplasia without lower urinary tract symptoms
CPT/HCPCS: 36415; 36430; 71045; 80048; 81001; 82948; 83735; 85025; 85027; 86850; 86900; 86901; 86920; 87086; 87088; 92610; 93005; 93971; 96374; 96375; 96376; A9270; G0378; G0379; J2248; J7050; J7070; P9016

== ENCOUNTER 2022-11-22 06:40 | Inpatient (IN) | payer MEDICARE, SELFPAY ==
[2022-11-22] VITALS (15 sets, daily range): BP systolic 123–170; BP diastolic 71–96; PULSE 83–117; RESP 14–27; TEMP 36.1–36.5; O2SAT 92–100
--- NOTE | ~2022-11-22 | XR_ITS ---
XR chest port-a-cath/central DATE: 11/23/2022 18:04 INDICATION: Central line placement TECHNIQUE: Portable AP chest on 11/23/2022 at 1756 hours COMPARISON: 09/05/2022 portable AP chest FINDINGS: Left subclavian central venous catheter is noted with distal tip overlying superior vena ca va. There is no evidence of pneumothorax. Heart size appears borderline. Is aortic calcification. Borderline pulmonary vascular congestion. Increased retrocardiac density on left may be due to hiatal hernia, left lower lobe infiltrate and/or atelectasis. Significant pleural effusion. Diffuse osteopenia. Old left rib fractures. No pulmonary consolidation is evident otherwise. IMPRESSION: Left subclavian central venous catheter tip overlies superior vena cava; no evidence of p neumothorax Reviewed, dictated and finalized at [facility]. Reviewed, dictated and finalized at [facility]. IMPRESSION: Left subclavian central venous catheter tip overlies superior vena cava; no evidence of pneumothorax
--- NOTE | ~2022-11-22 | CT_ITS ---
EXAMINATION: CT abdomen pelvis wo con DATE: 11/22/2022 10:45 INDICATION: Nonlocalized abdominal pain TECHNIQUE: Computed tomography (CT) of the abdomen and pelvis was performed without intravenous contr ast. The dose-length product (DLP) was 501.80 mGy-cm. Automated exposure control and iterative recons truction technique were employed. COMPARISON: 07/11/2022 FINDINGS: Minimal dependent atelectasis is present in the lung bases. The heart size is normal. There are small pleural effusions. There is a large hiatal hernia. The liver, spleen, pancreas, gallbladde r, and adrenal glands are normal. The right kidney is unremarkable. Nonobstructing stones of the left kidney lower pole measure up to 3 mm. There is calcified atherosclerosis of the aorta and many of th e other arteries. No pathologically enlarged abdominal or pelvic lymph nodes are identified. There is a 3.5 x 3.3 cm saccular infrarenal abdominal aortic aneurysm. The appendix is normal. A large volume of colonic stool is present. There is fecal impaction of the rectum with mild perirectal fat strandi ng. There is moderate lower thoracic and mild lumbar spondylosis. IMPRESSION: 1. Findings consistent with stercoral colitis. 2. Constipation. 3. Saccular infrarenal abdominal aortic aneurysm with interval enlargement. Reviewed, dictated and finalized at [facility].
--- NOTE | ~2022-11-22 | XR_ITS ---
XR chest 1V portable 11/25/2022 12:14 Indication: Shortness of breath Procedure: AP portable chest Comparison: Comparison to multiple prior studies sequentially, with oldest reviewed study dated 08/2022. Findings: Cardiomegaly. Blunting of the costophrenic recesses may represent pleural thickening or sma ll effusions. Left subclavian central line tip in the SVC. There is a hiatal hernia. No pneumothorax. There are multiple healed left rib fractures. Impression: 1: Possible small pleural effusions versus pleural thickening. 2: Hiatal hernia. Reviewed, dictated and finalized at [facility]. Impression: 1: Possible small pleural effusions versus pleural thickening. 2: Hiatal hernia.
--- NOTE | ~2022-11-22 | CT_ITS ---
Non-contrast CT scan of the Abdomen and Pelvis Clinical indication: Abdominal pain Technique: 2.5 mm axial scans were obtained through the abdomen and pelvis without intravenous or or al contrast. Dose reduction technique was used on this scan by utilizing automated exposure control a nd iterative reconstruction technique. The dose-length product (DLP) was 1037.43 mGy-cm. COMPARISON: 11/22/2022 Findings: Images through the lung bases reveal mild bibasilar atelectatic changes. There is a large hiatal hernia, containing a large portion of the stomach. Small nonobstructing left renal stone is present. No right renal stone. No ureteral stone or hydronep hrosis on either side. The liver, spleen, pancreas, gallbladder, and adrenals appear normal. There are atherosclerotic calci fications of the aorta. There is mild aneurysmal dilatation of the distal abdominal aorta to 3.2 cm i n maximum diameter. There is additional probable somewhat saccular aneurysm at the posterior aspect o f the very distal abdominal aorta, stable from prior exam, also measuring approximately 3.2 cm in tano meter. There is no evidence of bowel obstruction. Large amount of stool present at the rectum, compatible wi th fecal impaction and probable mild stercoral proctitis. Large amount of stool also present througho ut the remainder of the large bowel. Images through the pelvis were performed. There is no evidence of ascites or lymphadenopathy. Urinary bladder unremarkable. No pelvic mass seen. No ascites. Impression: Fecal impaction with stroke call proctitis and constipation. Stable infrarenal abdominal aortic aneurysms, as detailed above. Small nonobstructing left renal stone. Stable large hiatal hernia containing a large portion of the stomach. Reviewed, dictated and finalized at [facility]. Impression: Fecal impaction with stroke call proctitis and constipation. Stable infrarenal abdominal aortic aneurysms, as detailed above. Small nonobstructing left renal stone. Stable large hiatal hernia containing a large portion of the stomach.
--- NOTE | 2022-11-22 07:31 | ED.GENADULT ---
HPI - General Adult General Chief complaint: Nausea/Vomiting/Diarrhea Stated complaint: n/v Time Seen by Provider: 11/22/22 07:02 History of Present Illness HPI narrative: Patient is an 87-year-old male who presents ER with nausea and vomiting. Patient has dementia and is oriented x1 at baseline. He lives at home. He has evidence of emesis in his young. He also endorses discomfort in his abdomen with palpation. He cannot provide any additional history and family is not here. According to EMS family noticed that he was vomiting just this morning and this has not been a longstanding issue Related Data Home Medications Medication Instructions Recorded Confirmed empagliflozin 10 mg tablet 10 mg PO DAILY 08/08/22 09/05/22 (Jardiance) escitalopram oxalate 10 mg tablet 10 mg PO HS 08/08/22 09/05/22 ferrous sulfate 325 mg (65 mg 325 mg PO DAILY 08/08/22 09/05/22 iron) tablet insulin glargine 100 unit/mL 40 unit subcut DAILY 08/08/22 09/05/22 subcutaneous cartridge methenamine hippurate 1 gram tablet 1 g PO DAILY 08/08/22 09/05/22 metoprolol tartrate 25 mg tablet 25 mg PO HS 08/08/22 09/05/22 pravastatin 40 mg tablet 40 mg PO HS 08/08/22 09/05/22 sodium bicarbonate 650 mg tablet 650 mg PO TID 08/08/22 09/05/22 tamsulosin 0.4 mg capsule 0.4 mg PO HS 08/08/22 09/05/22 Allergies Allergy/AdvReac Type Severity Reaction Status Date / Time No Known Allergies Allergy Verified 07/11/22 10:44 Review of Systems Review of Systems: ROS unobtainable: Yes unobtainable due to mental status [facility] Past Medical History Medical History (Updated 11/22/22 @ 16:14 by Paulie Pinto MD) Acute kidney injury superimposed on CKD Acute UTI Altered mental status Congestive heart failure Delirium due to general medical condition Dementia 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 Family History Family History Other Unknown family medical history Social History Social History Smoking status: Never smoker Alcohol intake: never Substance use: never Substance use type: does not use Lack of Transportation: No Lack of Food: Never True Current Housing: I Have Housing Concerned About Future Housing: No Difficulty Paying Gas/Electric Bills: No Difficulty Paying for Meds: No Currently Unemployed: No Education: Grade School Difficulty w/ Childcare or Family Care: No Spiritual care concerns: No Exam Narrative: GENERAL: Chronically ill-appearing, well-nourished, and in no acute distress. HEAD: Normocephalic, atraumatic. EYES: PERRL and EOMI. ENT: Dentures in place. Dry mucous membranes. Dried emesis to the young. NECK: Supple. CHEST: Clear to auscultation. No respiratory distress. HEART: Regular rate and rhythm. Normal peripheral pulses. ABDOMEN: Soft, tenderness in bilateral upper quadrants without guarding, nondistended. EXTREMITIES: Normal range of motion. No edema. SKIN: Warm, dry, no rash. NEURO: Alert and oriented x1. Course Course Emergency Course: Patient had a bowel movement while he was here. He is able to eat and drink. Given patient's dementia function he is felt best to stay in the hospital for further treatment. Patient also has acute on chronic renal failure that require hydration. Vital Signs Vital signs: Vital Signs Temperature 97.7 F 11/22/22 06:40 Pulse Rate 100 11/22/22 06:40 Respiratory Rate 14 11/22/22 06:40 Blood Pressure 164/96 H 11/22/22 06:40 Pulse Oximetry 98 11/22/22 06:40 Oxygen Delivery Room Air 11/22/22 06:40 Temperature 97.7 F 11/22/22 06:40 Pulse Rate 102 H 11/22/22 17:31 Respiratory Rate 26 H 11/22/22 17:31 Blood Pressure 149/84 H 11/22/22 17:31 Pulse Oximetry 100 11/22/22 17:31 Oxygen Delivery Room Air 11/22/22 06:40 Medical Decision Making Vital Signs Vital Signs: Vital Signs Tempera
[2022-11-22 08:04] LABS: Basophils Percent Auto 0.1 % (0.2-1.2); Eosinophils Percent Auto 0.1 % (0-4.4); Hematocrit 27.5 % (42.0-52.0); Hemoglobin 8.8 g/dL (14.0-18.0); Immature Granulocyte Absolute 0.08 K/mm3 (0.00-0.031); Immature Granulocyte Percent A 0.6 % (0-0.5); Lymphocytes Absolute Auto 0.51 K/mm3 (0.9-3.2); Lymphocytes Percent Auto 3.7 % (18.3-44.2); Mean Corpuscular Hemoglobin 28.3 pg (26-34); Mean Corpuscular Volume 88.4 fl (80-100); Mean Platelet Volume 10.9 fl (7.4-10.4); Monocytes Absolute Auto 0.7 K/mm3 (0.1-0.6); Monocytes Percent Auto 5.3 % (2.6-8.5); Neutrophils Absolute Auto 12.4 K/mm3 (1.3-6.7); Neutrophils Percent Auto 90.2 % (45.5-73.1); Platelet Count Result 230 k/mm3 (150-375); Red Blood Count 3.11 M/mm3 (4.6-6.20); White Blood Count 13.7 K/mm3 (4.5-10.0)
[2022-11-22 08:22] LABS: Platelet Estimate Adequate (Adequate); Schistocytes Rare (NORMAL)
[2022-11-22 08:23] LABS: Burr Cells 2+ (NORMAL); Ovalocytes 1+ (NORMAL); Poikilocytosis 1+ (NORMAL)
[2022-11-22 09:06] LABS: Appearance Urine Cloudy (Clear); Bacteria Urine 4+ /hpf; Bilirubin Urine Negative (Negative); Blood Urine Trace (Negative); Color Urine Yellow (Yellow); Glucose Urine UA Negative (Negative); Ketones Urine Negative (Negative); Leukocyte Esterase Ur 1+ LEU/UL (Negative); Nitrate Urine Negative (Negative); Non Pathogenic Casts 0-2; Protein Urine 1+ mg/dL (Negative); RBC Urine 0-2 /hpf (0-2); Specific Grav Ur 1.014 (1.001-1.035); Squamous Epithelial Cell Urine Few /hpf (Few); Urobilinogen Urine 0.2 mg/dL (<2.0); WBC Urine 21-50 /hpf; pH Urine 5.5 (5.0-9.0)
[2022-11-22 09:14] LABS: Add Urine Microscopic? YES
[2022-11-22 10:35] LABS: Alanine Aminotransferase 26 U/L (6-50); Albumin Level 3.5 g/dL (3.5-5.1); Alkaline Phosphatase 90 U/L (38-126); Anion Gap 14 mmol/L (8-16); Aspartate Amino Transferase 23 U/L (17-59); Bilirubin,Total 0.6 mg/dL (0.2-1.3); Blood Urea Nitrogen 65 mg/dL (9-20); Calcium 9.1 mg/dL (8.4-10.2); Carbon Dioxide 12 mmol/L (22-30); Chloride 108 mmol/L (98-107); Estimated Glomerular Filt Rate 17; Glucose 179 mg/dL (65-110); Lipase 74 U/L (23-300); Potassium 3.3 mmol/L (3.4-5.0); Sodium 134 mmol/L (137-145)
[2022-11-22] MEDS: SODIUM CHLORIDE 0.9% IV 1,000 ML 999 ML IV CONT (15:48)
[2022-11-22] MEDS: SODIUM CHLORIDE 0.9% IV 1,000 ML 125 ML IV CONT ×2 (16:47→18:38)
[2022-11-22] MEDS: ACETAMINOPHEN 325 MG TABLET 650 MG PO (17:38)
[2022-11-22] MEDS: ONDANSETRON INJ 4 MG/2 ML VIAL IV PUSH (17:38)
--- NOTE | 2022-11-22 18:19 | ADMGEN ---
This patient, Karl Thompson, was admitted to [facility] Surg Room 332-01. Patient/family oriented to hospital policies and general routines including ID bracelet, bed and alarms, visiting hours, pain management, procedures, bathroom and other care routines, personal items, smoking policy, room service/diet, and visiting hours. Information on how to activate the Rapid Response Team has been discussed. Patient/Family are encouraged to report perceived risks to care and to ask questions if they do not understand what they are told or what they should do.
--- NOTE | 2022-11-22 18:50 | PC.NURSE ---
UNABLE TO VERIFY HOME MEDS. PATIENT CONFUSED NO FAMILY PRESENT AND LOCAL PHARMACY CLOSED UNTIL AM.
--- NOTE | 2022-11-22 23:19 | PM.IMHP ---
H&P: HPI History of Present Illness Date/Time: 11/22/22 23:19 Chief Complaint: patient was sent to the ER for evaluation of his nausea and vomiting Narrative: 87 years old white male with chronic medical issues is complaining of nausea and vomiting since yesterday. He has baseline dementia. He lives at home. Family got concerned and sent him to the ER for evaluation via EMS. He had evidence of emesis in his young on arrival in the ER. He was given IV fluids and p.r.n. meds for nausea and vomiting. Workup was done which showed stercoral colitis and UTI. Antibiotics were started and he is being placed under observation status for IV hydration andmedical management. Review of Systems Review of Systems: he denies any chest pain, palpitations, fever rigor chills, loss of consciousness. also complains of lower abdominal pain. 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 Family History Family History Other Unknown family medical history Social History Social History Smoking status: Never smoker Alcohol intake: unknown Substance use: unknown Substance use type: unknown Lack of Transportation: No Lack of Food: Never True Current Housing: I Have Housing Concerned About Future Housing: No Difficulty Paying Gas/Electric Bills: No Difficulty Paying for Meds: No Currently Unemployed: No Education: Grade School Difficulty w/ Childcare or Family Care: No Spiritual care concerns: No Meds Home Medications and Allergies Home Medications Medication Instructions Recorded Confirmed Type finasteride 5 mg tablet 5 mg PO DAILY #30 tabs 07/11/22 11/23/22 Rx empagliflozin 10 mg tablet 10 mg PO DAILY 08/08/22 11/23/22 History (Jardiance) escitalopram oxalate 10 mg tablet 10 mg PO HS 08/08/22 11/23/22 History ferrous sulfate 325 mg (65 mg 325 mg PO DAILY 08/08/22 11/23/22 History iron) tablet methenamine hippurate 1 gram tablet 1 g PO DAILY 08/08/22 11/23/22 History metoprolol tartrate 25 mg tablet 25 mg PO HS 08/08/22 11/23/22 History pravastatin 40 mg tablet 40 mg PO HS 08/08/22 11/23/22 History sodium bicarbonate 650 mg tablet 650 mg PO BID 08/08/22 11/23/22 History tamsulosin 0.4 mg capsule 0.4 mg PO HS 08/08/22 11/23/22 History nitroglycerin 0.4 mg sublingual 0.4 mg sublingual Q5MIN PRN Chest 08/30/22 11/23/22 Rx tablet (Nitrostat) Pain #25 tabs pantoprazole 40 mg tablet,delayed 40 mg PO Q12HR #60 tabs 08/30/22 11/23/22 Rx release aspirin 81 mg tablet,delayed 81 mg PO DAILY 11/23/22 11/23/22 History release Allergies Allergy/AdvReac Type Severity Reaction Status Date / Time No Known Allergies Allergy Verified 11/22/22 18:20 Vital Signs Vital Signs - 24 hr 11/22/22 06:40 11/22/22 08:04 11/22/22 08:05 Temperature 36.5 C Pulse Rate 100 98 101 H Respiratory Rate 14 Blood Pressure 164/96 H 161/79 H 131/74 Pulse Oximetry 98 Oxygen Delivery Room Air 11/22/22 08:00 11/22/22 08:53 11/22/22 14:12 Temperature Pulse Rate 99 99 87 Respiratory Rate 27 H 24 H 22 H Blood Pressure 142/95 H 170/94 H Pulse Oximetry 100 100 100 Oxygen Delivery 11/22/22 14:30 11/22/22 15:49 11/22/22 16:22 Temperature Pulse Rate 101 H 83 117 H Respiratory Rate 23 H 24 H 18 Blood Pressure 134/77 136/81 155/81 H Pulse Oximetry 99 98 94 Oxygen Delivery 11/22/22 17:20 11/22/22 17:31 11/22/22 17:44 Temperature Pulse Rate 100 102 H 101 H Respiratory Rate 24 H 26 H 25 H Blood Pressure 159/91 H 149/84 H 149/84 H Pulse Oximetry 92 100 100 Ox
[2022-11-23] VITALS (20 sets, daily range): BP systolic 96–152; BP diastolic 52–91; PULSE 69–102; RESP 14–22; TEMP 35.9–36.6; O2SAT 92–100
[2022-11-23] MEDS: SODIUM CHLORIDE 0.9% IV 1,000 ML 125 ML IV CONT (02:40)
[2022-11-23 07:35] LABS: Basophils Absolute Auto 0.1 K/mm3 (0.0-0.1); Basophils Percent Auto 0.5 % (0.2-1.2); Eosinophils Absolute Auto 0.2 K/mm3 (0-0.3); Eosinophils Percent Auto 2.5 % (0-4.4); Immature Granulocyte Absolute 0.06 K/mm3 (0.00-0.031); Immature Granulocyte Percent A 0.6 % (0-0.5); Lymphocytes Absolute Auto 1.38 K/mm3 (0.9-3.2); Lymphocytes Percent Auto 14.5 % (18.3-44.2); Mean Corpuscular HGB Conc 30.4 g/dl (32-36); Mean Corpuscular Hemoglobin 28.1 pg (26-34); Mean Corpuscular Volume 92.4 fl (80-100); Mean Platelet Volume 10.7 fl (7.4-10.4); Monocytes Absolute Auto 0.8 K/mm3 (0.1-0.6); Monocytes Percent Auto 8.5 % (2.6-8.5); Neutrophils Percent Auto 73.4 % (45.5-73.1); Platelet Count Result 168 k/mm3 (150-375); Red Blood Count 1.85 M/mm3 (4.6-6.20); Red Cell Distribution Width 16.5 % (11.5-14.5); White Blood Count 9.6 K/mm3 (4.5-10.0)
[2022-11-23 07:36] LABS: Hematocrit 17.1 % (42.0-52.0)
[2022-11-23 07:40] LABS: Hemoglobin 5.2 g/dL (14.0-18.0)
--- NOTE | 2022-11-23 07:59 | PC.NURSE ---
Addendum entered by Shama Gold RN 11/23/22 08:17: orders received to make pt NPO and re-check Abd CT wo contrast. Original Note: Pt has critical H&H 5.2/17.1. Dr Morfin called, orders received for 2units PRBC and re-check H&H stat. No obvious signs of bleeding but pt does have triple A and stool impaction confirmed on abd/pelvis CT. RN called MD again to inform of CT results, no new orders received at this time. Will continue to monitor patient. Pt is reporting nausea, no other symptoms at this time.
[2022-11-23 08:00] LABS: Anion Gap 10 mmol/L (8-16); Blood Urea Nitrogen 83 mg/dL (9-20); Calcium 7.3 mg/dL (8.4-10.2); Carbon Dioxide 12 mmol/L (22-30); Chloride 116 mmol/L (98-107); Estimated CRCL calculation 15 ml/min; Estimated Glomerular Filt Rate 19; Glucose 107 mg/dL (65-110); Magnesium 1.3 mg/dL (1.6-2.3); Phosphorus 4.6 mg/dL (2.5-4.5); Potassium 3.7 mmol/L (3.4-5.0); Sodium 138 mmol/L (137-145)
[2022-11-23] MEDS: ONDANSETRON INJ 4 MG/2 ML VIAL IV PUSH (08:05)
[2022-11-23 08:31] LABS: Hematocrit 16.1 % (42.0-52.0)
[2022-11-23 08:53] LABS: INR 1.2; Prothrombin Time 15.8 Seconds (11.1-14.7)
[2022-11-23 08:54] LABS: Partial Thromboplastin Time 28.1 SECONDS (22.3-36.8)
[2022-11-23] MEDS: PANTOPRAZOLE SODIUM IV 80 MG in SODIUM CHLORIDE 0.9% IV 500 ML 50 MG IV CONT (09:09)
[2022-11-23] MEDS: MORPHINE SULFATE (*CRX) 2 MG/ML INJ IV PUSH ×2 (09:10→21:28)
[2022-11-23] MEDS: TUBING, BLOOD PLUM PUMP TUBING 1 EACH XX ×2 (09:11→16:48)
[2022-11-23] MEDS: SODIUM CHLORIDE 0.9% IV 250 ML 30 ML IV CONT (09:11)
--- NOTE | 2022-11-23 15:17 | WPDGICN ---
Assessment and Plan Assessment and plan (1) Acute on chronic anemia: Code(s): D64.9 - Anemia, unspecified Status: Acute Assessment and Plan: similar presentation 3 months ago, family decided against scopes can not get good history he will get blood transfusion now, hopefully we can talk to family (2) Acute UTI: Code(s): N39.0 - Urinary tract infection, site not specified Status: Acute Assessment and Plan: on abx (3) Stercoral colitis: Code(s): K52.89 - Other specified noninfective gastroenteritis and colitis Status: Acute Assessment and Plan: medical treatment (4) Acute on chronic renal failure: Code(s): N17.9 - Acute kidney failure, unspecified; N18.9 - Chronic kidney disease, unspecified Status: Acute Assessment and Plan: worsening renal failure CKD probably playing a role on his anemia (5) Dementia: Code(s): F03.90 - Unspecified dementia, unspecified severity, without behavioral disturbance, psychotic disturbance, mood disturbance, and anxiety Status: Acute Assessment and Plan: he is confused at baseline GI Consult Note Consult date/time: 11/23/22 15:17 Reason for consult: acute on chronic anemia HPI: Karl Thompson is a 87 year old male with recent hospitalization 3 months ago with symptomatic anemia, NSTME among other problems, his hgb was down to 5 (normally 8-9), he was evaluated by Dr Schumacher and was planning to do egd and colonscopy but family did not want to. He also has dementia and he is poor historian. This time family called EMS after he got sick (no details and tried to call family members but no answer). In the ER staff noted emesis in his young. Hgb once again low 5's and now he is getting blood transfusion. Also had nausea and complaining of pain all over , he knows that he is in the hospital and able to tell me his name but can not tell me much about medical history. CT scan a/p reviewed and showed stercoral colitis.??Creat 3.4 from 2.8, also UTI started on Abx. 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 Family History Family History Other Unknown family medical history Social History Social History Smoking status: Never smoker Alcohol intake: unknown Substance use: unknown Substance use type: unknown Lack of Transportation: No Lack of Food: Never True Current Housing: I Have Housing Concerned About Future Housing: No Difficulty Paying Gas/Electric Bills: No Difficulty Paying for Meds: No Currently Unemployed: No Education: Grade School Difficulty w/ Childcare or Family Care: No Spiritual care concerns: No Meds Home Medications and Allergies Home Medications Medication Instructions Recorded Confirmed Type finasteride 5 mg tablet 5 mg PO DAILY #30 tabs 07/11/22 11/23/22 Rx empagliflozin 10 mg tablet 10 mg PO DAILY 08/08/22 11/23/22 History (Jardiance) escitalopram oxalate 10 mg tablet 10 mg PO HS 08/08/22 11/23/22 History ferrous sulfate 325 mg (65 mg 325 mg PO DAILY 08/08/22 11/23/22 History iron) tablet methenamine hippurate 1 gram tablet 1 g PO DAILY 08/08/22 11/23/22 History metoprolol tartrate 25 mg tablet 25 mg PO HS 08/08/22 11/23/22 History pravastatin 40 mg tablet 40 mg PO HS 08/08/22 11/23/22 History sodium bicarbonate 650 mg tablet 650 mg PO BID 08/08/22 11/23/22 History tamsulosin 0.4 mg capsule 0.4 mg PO HS 08/08/22 11/23/22 History nitroglyce
--- NOTE | 2022-11-23 15:23 | PM.IMPN ---
Progress Note: A&P Assessment and Plan (1) Stercoral colitis: Code(s): K52.89 - Other specified noninfective gastroenteritis and colitis Status: Acute (2) Acute UTI: Code(s): N39.0 - Urinary tract infection, site not specified Status: Acute (3) Acute on chronic renal failure: Code(s): N17.9 - Acute kidney failure, unspecified; N18.9 - Chronic kidney disease, unspecified Status: Acute (4) Hypertension: Code(s): I10 - Essential (primary) hypertension Status: Acute (5) Anemia: Onset Date: ~08/2022 Qualifiers: Qualified Code(s): D50.0 - Iron deficiency anemia secondary to blood loss (chronic) Code(s): D64.9 - Anemia, unspecified Status: Acute (6) Dehydration: Code(s): E86.0 - Dehydration Status: Acute (7) Congestive heart failure: Code(s): I50.9 - Heart failure, unspecified Status: Acute (8) Dementia: Code(s): F03.90 - Unspecified dementia, unspecified severity, without behavioral disturbance, psychotic disturbance, mood disturbance, and anxiety Status: Acute Plan Patient confusion poor historian. Reports no complaints. Except for abdominal discomfort. Denies any nausea vomiting. Few red spots visible on his young. He was dropped off by his family in the ER had been able to be released. His hemoglobin was stable yesterday however dropped down to 5. Recheck the same. Emergently transfused this a.m.. Having issues with IV access. Has underlying CKD stage 4. Mostly at baseline level. UTI was noted has started on ceftriaxone IV. He is noted to have bacteremia with Chrissie in the past which was treated successfully. He CT abdomen and pelvis showed findings consistent with stercoral colitis. With fecal impaction and saccular infrarenal abdominal aortic aneurysm with interval enlargement. Repeat CT was obtained since H&H abruptly dropped to 5 to rule out any retroperitoneal bleed are at aortic leak. This was negative. I suspect he had GI bleed and hence he has been started on Protonix drip. GI consulted and discussed with him. Monitor H&H q.8 hour Metabolic acidosis Hold aspirin Stercoral colitis will add Flagyl. Already on ceftriaxone Subjective Date/time seen: 11/23/22 15:23 Interval history: Patient confusion poor historian. Reports no complaints. Except for abdominal discomfort. Denies any nausea vomiting. Few red spots visible on his young. He was dropped off by his family in the ER had been able to be released. His hemoglobin was stable yesterday however dropped down to 5. Recheck the same. Emergently transfused this a.m.. Having issues with IV access. Has underlying CKD stage 4. Mostly at baseline level. UTI was noted has started on ceftriaxone IV. He is noted to have bacteremia with Chrissie in the past which was treated successfully. He CT abdomen and pelvis showed findings consistent with stercoral colitis. With fecal impaction and saccular infrarenal abdominal aortic aneurysm with interval enlargement. Repeat CT was obtained since H&H abruptly dropped to 5 to rule out any retroperitoneal bleed are at aortic leak. This was negative. I suspect he had GI bleed and hence he has been started on Protonix drip. GI consulted and discussed with him. Monitor H&H q.8 hour Review of Systems Review of Systems: All systems reviewed & are unremarkable except as noted in HPI and below Exam Narrative: General physical exam: patient feels tired and fatigued, lying in bed, no acute distress Head/eyes: Atraumatic, EOMI, PERRLA ENT: +dry mucous membranes, nasal passages clear Neck: Supple, full range of motion, trachea midline CVS: S1 + S2, regular rate and rhythm, +2/6 systolic ejection murmur Respiratory: Bilaterally fair air entry in both lung perez, mild B/L crackles, symmetric chest expansion, no distress Abdomen: Soft, + mild lower abdominal tenderness on palpation, bowel sounds +ve, no
[2022-11-23 15:43] LABS: Hematocrit 25.2 % (42.0-52.0); Hemoglobin 7.1 g/dL (14.0-18.0)
[2022-11-23 16:48] LABS: Iron 126 ug/dL (49-181); Lactate Dehydrogenase 380 U/L (120-246)
[2022-11-23 17:03] LABS: Percent Iron Saturation 63 % (20-50)
--- NOTE | 2022-11-23 17:52 | W.PM.PROC2 ---
Procedure Note - Detailed Date of Procedure 11/23/22 Pre-op Diagnosis acute on chronic renal failure,uti,stercoralitis, inadequate venous access Post-op Diagnosis Same Procedure Performed Placement left subclavian central venous catheter Surgeon Cole Lopez MD Anesthesia Local (1% lidocaine) Indications Patient has poor peripheral IV access. Vascular access nursing has evaluated him and was unable to find adequate veins to place a PICC line or midline catheter. I was asked to see the patient in consultation for placement of a central venous line. Findings Triple-lumen Arrow catheter was placed in the left subclavian position without incident. Portable chest x-ray is pending Description of Procedure Patient was supine in his hospital bed. The left side of his young was shaved with clippers. The area was cleaned. Sterile prep and drape was carried out. Full gloves mask in sterile precautions were used throughout the procedure. Local anesthetic was infiltrated under the left clavicle. The left subclavian vein was then cannulated and a guidewire passed without difficulty. The needle was removed. A dilator was passed over the guidewire. A triple-lumen Arrow catheter was then passed over the guidewire and the guidewire was removed. All 3 ports aspirated blood and flushed easily with sterile saline. All 3 ports were capped. The line was sutured securely to the skin with 3-0 silk. A sterile transparent dressing was placed after the bio guard was positioned. Patient tolerated the procedure well. Portable chest x-ray is pending. Estimated Blood Loss -2 Urine Output 400 Pathology None sent Complications No immediate complications Condition Stable Disposition No change [facility] Billing Surgery - Charge Forward: Surgery Billing (Placement central venous line)
[2022-11-23 18:01] LABS: Folic Acid 5.3 ng/mL (2.76->20)
[2022-11-23] MEDS: SODIUM BICARBONATE 8.4% 100 MEQ in DEXTROSE 5% 1,000 ML 1,000 ML 50 MEQ IV CONT (18:33)
[2022-11-23] MEDS: CENTRAL LINE FLUSH 10 ML IV PUSH ×2 (18:33→21:29)
[2022-11-23] MEDS: metroNIDAZOLE 500 MG/ISO 100ML 500 MG/100 ML BAG 100 MG IVPB (18:33)
[2022-11-23 20:46] LABS: Hematocrit 29.8 % (42.0-52.0); Hemoglobin 9.2 g/dL (14.0-18.0)
[2022-11-23] MEDS: METOPROLOL TARTRATE 25 MG TABLET PO (21:28)
[2022-11-23] MEDS: PRAVASTATIN SODIUM 20 MG TABLET 40 MG PO (21:28)
[2022-11-23] MEDS: ESCITALOPRAM OXALATE 10 MG TABLET PO (21:28)
[2022-11-23] MEDS: TAMSULOSIN HCL 0.4 MG CAPSULE PO (21:28)
[2022-11-23] MEDS: MAGNESIUM SULF 1 GM/D5W 100 ML 1 GM/100 ML BAG IVPB (23:07)
[2022-11-24] VITALS (14 sets, daily range): BP systolic 96–160; BP diastolic 40–82; PULSE 61–114; RESP 16–19; TEMP 36.1–36.5; O2SAT 85–100
[2022-11-24] MEDS: metroNIDAZOLE 500 MG/ISO 100ML 500 MG/100 ML BAG 100 MG IVPB ×4 (00:13→23:22)
[2022-11-24] MEDS: PANTOPRAZOLE SODIUM IV 80 MG in SODIUM CHLORIDE 0.9% IV 500 ML 50 MG IV CONT ×3 (03:03→21:16)
[2022-11-24] MEDS: CENTRAL LINE FLUSH 10 ML IV PUSH ×4 (05:23→21:18)
[2022-11-24 05:37] LABS: Basophils Absolute Auto 0.1 K/mm3 (0.0-0.1); Basophils Percent Auto 0.4 % (0.2-1.2); Eosinophils Absolute Auto 0.6 K/mm3 (0-0.3); Eosinophils Percent Auto 3.9 % (0-4.4); Hematocrit 21.6 % (42.0-52.0); Immature Granulocyte Absolute 0.09 K/mm3 (0.00-0.031); Immature Granulocyte Percent A 0.6 % (0-0.5); Lymphocytes Absolute Auto 1.17 K/mm3 (0.9-3.2); Lymphocytes Percent Auto 8.1 % (18.3-44.2); Mean Corpuscular HGB Conc 32.4 g/dl (32-36); Mean Corpuscular Hemoglobin 29.3 pg (26-34); Mean Corpuscular Volume 90.4 fl (80-100); Mean Platelet Volume 10.5 fl (7.4-10.4); Monocytes Percent Auto 6.6 % (2.6-8.5); Neutrophils Absolute Auto 11.6 K/mm3 (1.3-6.7); Neutrophils Percent Auto 80.4 % (45.5-73.1); Platelet Count Result 124 k/mm3 (150-375); Red Blood Count 2.39 M/mm3 (4.6-6.20); Red Cell Distribution Width 16.8 % (11.5-14.5); White Blood Count 14.5 K/mm3 (4.5-10.0)
[2022-11-24 05:52] LABS: Alanine Aminotransferase 15 U/L (6-50); Albumin Level 1.9 g/dL (3.5-5.1); Alkaline Phosphatase 46 U/L (38-126); Anion Gap 10 mmol/L (8-16); Aspartate Amino Transferase 13 U/L (17-59); Bilirubin,Total 0.5 mg/dL (0.2-1.3); Blood Urea Nitrogen 91 mg/dL (9-20); Calcium 7.4 mg/dL (8.4-10.2); Carbon Dioxide 11 mmol/L (22-30); Chloride 117 mmol/L (98-107); Estimated CRCL calculation 16 ml/min; Estimated Glomerular Filt Rate 18; Glucose 102 mg/dL (65-110); Magnesium 1.4 mg/dL (1.6-2.3); Potassium 3.6 mmol/L (3.4-5.0); Sodium 138 mmol/L (137-145)
[2022-11-24] MEDS: FERROUS SULFATE 325 MG TABLET DR BY MOUTH (10:20)
[2022-11-24] MEDS: EMPAGLIFLOZIN 10 MG TABLET PO (10:20)
[2022-11-24] MEDS: FINASTERIDE 5 MG TABLET PO (10:20)
[2022-11-24] MEDS: polyethylene glycoL 3350 17 GM POWD.PACK PO (10:21)
[2022-11-24] MEDS: SODIUM BICARBONATE TAB 650 MG TABLET PO ×2 (10:21→17:35)
[2022-11-24] MEDS: METOPROLOL TARTRATE 25 MG TABLET PO (10:21)
--- NOTE | 2022-11-24 11:22 | WPDGIPROGNO ---
Progress Note: A&P Assessment and Plan (1) Acute on chronic anemia: Code(s): D64.9 - Anemia, unspecified Status: Acute Assessment and Plan: received blood transfusion hgb down again to 7 but no signs of any bleeding since admission last hospitalization family members mentioned to staff that did not want any scopes- right now trying to contact POA in order to get more information (2) Stercoral colitis: Code(s): K52.89 - Other specified noninfective gastroenteritis and colitis Status: Acute Assessment and Plan: medical treatment (3) Acute UTI: Code(s): N39.0 - Urinary tract infection, site not specified Status: Acute (4) Delirium due to general medical condition: Code(s): F05 - Delirium due to known physiological condition Status: Acute Assessment and Plan: he is confused (5) Dementia: Code(s): F03.90 - Unspecified dementia, unspecified severity, without behavioral disturbance, psychotic disturbance, mood disturbance, and anxiety Status: Acute (6) Acute kidney injury superimposed on CKD: Code(s): N17.9 - Acute kidney failure, unspecified; N18.9 - Chronic kidney disease, unspecified Status: Acute Assessment and Plan: probably renal failure also contributing to anemia monitor Subjective Date/time seen: 11/24/22 11:22 Interval history: still no BM since admission and RN reports no signs of bleeding he is confused and can not get history from him (he thinks that he is in [place]) Review of Systems Review of Systems: All systems reviewed & are unremarkable except as noted in HPI and below Exam Const: Other: awake and alert but confused HENMT: Face/Nose/Sinus: Normal nares present Eyes: Sclera: sclerae normal Neck: Neck: supple Resp: Effort & Inspection: normal respiratory effort Cardio: Rate: regular rate Heart sounds: Murmur heart sound present GI: GI Palp: Yes Soft to palpation and No Guarding due to palpation present (GI) Auscultation: normal bowel sounds Skin: Other: pallor Neuro: Speech: normal speech Motor exam (neuro): 5/5 motor strength present throughout Other: confused Extrem: General: normal to inspection Objective Data Vital Signs Vital Signs: Vital Signs - 24 hr 11/23/22 12:00 11/23/22 12:02 11/23/22 13:02 Temperature 96.9 F L 97.0 F L 97.4 F L Pulse Rate 92 95 95 Respiratory Rate 20 20 20 Blood Pressure 102/64 117/75 109/70 Pulse Oximetry 99 100 100 Oxygen Delivery 11/23/22 14:02 11/23/22 15:49 11/23/22 15:58 Temperature 96.8 F L 97.1 F L 96.6 F L Pulse Rate 91 93 96 Respiratory Rate 20 21 H 22 H Blood Pressure 139/70 143/65 H 148/80 H Pulse Oximetry 100 99 100 Oxygen Delivery 11/23/22 15:50 11/23/22 16:05 11/23/22 17:05 Temperature 97.1 F L 97.3 F L 97.1 F L Pulse Rate 93 85 92 Respiratory Rate 20 20 20 Blood Pressure 143/65 H 104/81 152/84 H Pulse Oximetry 99 100 100 Oxygen Delivery 11/23/22 18:05 11/23/22 20:22 11/23/22 20:00 Temperature 97.8 F 97 F L Pulse Rate 97 96 Respiratory Rate 20 14 Blood Pressure 151/91 H 147/83 H Pulse Oximetry 100 99 Oxygen Delivery Room Air 11/23/22 22:00 11/24/22 04:38 11/24/22 05:53 Temperature 97.7 F Pulse Rate 114 H Respiratory Rate 16 Blood Pressure 96/74 L 118/82 Pulse Oximetry 98 98 Oxygen Delivery Room Air 11/24/22 08:00 Temperature 97.5 F L Pulse Rate 93 Respiratory Rate 18 Blood Pressure 101/50 L Pulse Oximetry 95 Oxygen Delivery Intake/Output Intake/Output: Intake & Output 11/21/22 11/22/22 11/23/22 11/24/22 23:59 23:59 23:59 23:59 Intake Total 0 1950 100 Output Total 200 1200 800 Balance 1850 750 -700 Meds/Results Medications: Active Medications Generic Name Dose Route Start Last Admin Trade Name Freq PRN Reason Stop Dose Admin Acetaminophen 650 mg 11/23/22 05:49 Acetaminophen 325 Mg Tablet PO Q4H PRN
--- NOTE | 2022-11-24 11:42 | PC.NURSE ---
Message left with daughterSugar at 11:42 am. Clarification requested per hospitalist regarding who is POA for notifications. Pending response.
--- NOTE | 2022-11-24 11:55 | PC.NURSE ---
This RN spoke with Yecenia, granddaughter, at 11:55 am. Per Yecenia, her mother, Sugar is POA #1 and she is POA #2. Dr. Morfin made aware.
--- NOTE | 2022-11-24 12:25 | PC.NURSE ---
This RN received a phone call from the patient's daughter/POA, Sugar around 12:20 pm. Sugar stated that she has knowledge of a specific staff member giving information regarding her father to people that are not authorized to receive information regarding his care. This RN inquired about this specific staff members name. Sugar stated I will handle this on my own and contact my tax associate attorney.
[2022-11-24] MEDS: MAGNESIUM SULF 1 GM/D5W 100 ML 1 GM/100 ML BAG IVPB (12:39)
--- NOTE | 2022-11-24 12:42 | PC.NURSE ---
This RN received a return call from Sugar, daughter, at 12:12 pm. Sugar noted that she spoke with someone previous day regarding her POA status and is aware there is no paperwork on file here and will bring in a copy. Sugar stated that she had no missed calls or messages regarding my previous attempt to notify and her daughter notified of attempt to reach. This RN noted a message was left. This RN noted that the doctor was wanting clarification as to who to speak to regarding medical consents or condition updates. Sugar noted that she was upset because there is someone who is on staff at [facility] who has been speaking to her sisters regarding her father and updates. This RN noted to Sugar that the sisters are not listed on the chart for updates and this RN has not personally spoke with them. Sugar made aware that the hospitalist would call her with a medical update. Sugar voiced understanding.
--- NOTE | 2022-11-24 13:46 | PM.IMPN ---
Progress Note: A&P Assessment and Plan (1) Stercoral colitis: Code(s): K52.89 - Other specified noninfective gastroenteritis and colitis Status: Acute (2) Acute UTI: Code(s): N39.0 - Urinary tract infection, site not specified Status: Acute (3) Acute on chronic renal failure: Code(s): N17.9 - Acute kidney failure, unspecified; N18.9 - Chronic kidney disease, unspecified Status: Acute (4) Hypertension: Code(s): I10 - Essential (primary) hypertension Status: Acute (5) Anemia: Onset Date: ~08/2022 Qualifiers: Qualified Code(s): D50.0 - Iron deficiency anemia secondary to blood loss (chronic) Code(s): D64.9 - Anemia, unspecified Status: Acute (6) Dehydration: Code(s): E86.0 - Dehydration Status: Acute (7) Congestive heart failure: Code(s): I50.9 - Heart failure, unspecified Status: Acute (8) Dementia: Code(s): F03.90 - Unspecified dementia, unspecified severity, without behavioral disturbance, psychotic disturbance, mood disturbance, and anxiety Status: Acute Plan Patient confusion poor historian. Reports no complaints. Except for abdominal discomfort. Denies any nausea vomiting. Few red spots visible on his young. He was dropped off by his family in the ER had been able to be released. His hemoglobin was stable yesterday however dropped down to 5. Recheck the same. Emergently transfused this a.m.. Having issues with IV access. Has underlying CKD stage 4. Mostly at baseline level. UTI was noted has started on ceftriaxone IV. He is noted to have bacteremia with Chrissie in the past which was treated successfully. He CT abdomen and pelvis showed findings consistent with stercoral colitis. With fecal impaction and saccular infrarenal abdominal aortic aneurysm with interval enlargement. Repeat CT was obtained since H&H abruptly dropped to 5 to rule out any retroperitoneal bleed are at aortic leak. This was negative. I suspect he had GI bleed and hence he has been started on Protonix drip. GI consulted and discussed with him. Monitor H&H q.8 hour. Family consents for any GI procedure Metabolic acidosis Hold aspirin Stercoral colitis will add Flagyl. Already on ceftriaxone Urine culture with Klebsiella pneumoniae. ESBL with switched to meropenem Subjective Date/time seen: 11/24/22 13:46 Interval history: Patient confusion poor historian. Reports no complaints. Except for abdominal discomfort. Denies any nausea vomiting. Few red spots visible on his young. He was dropped off by his family in the ER had been able to be released. His hemoglobin was stable yesterday however dropped down to 5. Recheck the same. Emergently transfused this a.m.. Having issues with IV access. Has underlying CKD stage 4. Mostly at baseline level. UTI was noted has started on ceftriaxone IV. He is noted to have bacteremia with Chrissie in the past which was treated successfully. He CT abdomen and pelvis showed findings consistent with stercoral colitis. With fecal impaction and saccular infrarenal abdominal aortic aneurysm with interval enlargement. Repeat CT was obtained since H&H abruptly dropped to 5 to rule out any retroperitoneal bleed are at aortic leak. This was negative. I suspect he had GI bleed and hence he has been started on Protonix drip. GI consulted and discussed with him. Monitor H&H q.8 hour 11/23/2022: No overnight events. Reports abdominal pain is better. No nausea vomiting. Is still confused. Looks a bit better than yesterday. Discussed with [id number] Review of Systems Review of Systems: All systems reviewed & are unremarkable except as noted in HPI and below Exam Narrative: General physical exam: patient feels tired and fatigued, lying in bed, no acute distress Head/eyes: Atraumatic, EOMI, PERRLA ENT: +dry mucous membranes, nasal passages clear Neck: Supple, full range of mo
[2022-11-24] MEDS: SODIUM BICARBONATE 8.4% 150 MEQ in DEXTROSE 5% 1,000 ML 950 ML 50 MEQ IV CONT (14:39)
[2022-11-24] MEDS: BISACODYL 10 MG SUPPOSITORY RECTAL (14:39)
[2022-11-24] MEDS: MEROPENEM 500 MG in SODIUM CHLORIDE 0.9% IV 100 ML 200 ML IVPB ×2 (15:20→21:18)
[2022-11-24 16:08] LABS: Hemoglobin 6.7 g/dL (14.0-18.0)
[2022-11-24 16:09] LABS: Hematocrit 20.4 % (42.0-52.0)
[2022-11-24] MEDS: SODIUM CHLORIDE 0.9% IV 250 ML 30 ML IV CONT (17:31)
[2022-11-24 20:01] LABS: Base Excess ABG -13.3 mEq/l (+/-2.0); Fractional Inspired Oxygen 36 %; HCO3 ABG 11.7 mEq/l (22.0-26.0); Oxygen Content ABG 12.9 %vol (16.0-22.0); Oxygen Saturation ABG 98.4 % (95.0-100.0); Oxyhemoglobin 96.5 % THb (90.0-100.0); PCO2 ABG 24.7 mmHg (35.0-45.0); PO2 FiO2 Ratio Arterial Blood 3.69 %; Total Hemoglobin 9.3 g/dL (12.0-18.0)
[2022-11-24 20:06] LABS: pH ABG 7.295 (7.350-7.450)
[2022-11-24 20:07] LABS: Device NASAL CANNULA; Modified Allen's Test Pass; Site Drawn LEFT RADIAL
--- NOTE | 2022-11-24 20:30 | PM.EVENT ---
Event Note Event Note Event Note: I was asked to evaluate patient by the clinical applications manager nurse. Patient was receiving unit blood and the nursing staff was unable to get a good pulse ox reading. They requested ABG. ABG was drawn and resulted showing patient was in metabolic acidosis. His PaO2 was 133 so respiratory therapy dial his oxygen to 2 liters/minute. Review records shows patient has had low carbon dioxide level on metabolic and is receiving IV sodium bicarb drip. I ordered stat lactic acid, CMP beta hydroxybutyrate. Also requested Nephrology consult due to chronic renal failure acidosis. Blood pressure low some nighttime medicines held. Patient had no acute complaints.
[2022-11-24] MEDS: TAMSULOSIN HCL 0.4 MG CAPSULE PO (21:18)
[2022-11-24] MEDS: PRAVASTATIN SODIUM 20 MG TABLET 40 MG PO (21:18)
[2022-11-24] MEDS: ESCITALOPRAM OXALATE 10 MG TABLET PO (21:18)
[2022-11-25] VITALS (8 sets, daily range): BP systolic 94–130; BP diastolic 44–66; PULSE 60–80; RESP 16; TEMP 36.1–36.9; O2SAT 95–100
[2022-11-25 00:27] LABS: Hematocrit 23.5 % (42.0-52.0); Hemoglobin 7.7 g/dL (14.0-18.0)
[2022-11-25 00:28] LABS: Alanine Aminotransferase 14 U/L (6-50); Albumin Level 1.9 g/dL (3.5-5.1); Alkaline Phosphatase 44 U/L (38-126); Anion Gap 9 mmol/L (8-16); Aspartate Amino Transferase 14 U/L (17-59); Bilirubin,Total 0.6 mg/dL (0.2-1.3); Blood Urea Nitrogen 84 mg/dL (9-20); Calcium 7.2 mg/dL (8.4-10.2); Carbon Dioxide 13 mmol/L (22-30); Chloride 115 mmol/L (98-107); Estimated CRCL calculation 16 ml/min; Estimated Glomerular Filt Rate 18; Glucose 112 mg/dL (65-110); Lactic Acid Reflex 0.7 mmol/L (0.7-2.0); Potassium 3.6 mmol/L (3.4-5.0); Sodium 137 mmol/L (137-145)
[2022-11-25 00:32] LABS: Beta-Hydroxybutyrate/Acetoacetate 0.24 mmol/L (0.02-0.27)
[2022-11-25 06:40] LABS: Basophils Percent Auto 0.4 % (0.2-1.2); Eosinophils Absolute Auto 0.4 K/mm3 (0-0.3); Eosinophils Percent Auto 4.4 % (0-4.4); Hematocrit 23.2 % (42.0-52.0); Hemoglobin 7.6 g/dL (14.0-18.0); Immature Granulocyte Absolute 0.05 K/mm3 (0.00-0.031); Immature Granulocyte Percent A 0.6 % (0-0.5); Lymphocytes Absolute Auto 0.65 K/mm3 (0.9-3.2); Lymphocytes Percent Auto 7.9 % (18.3-44.2); Mean Corpuscular HGB Conc 32.8 g/dl (32-36); Mean Corpuscular Volume 91.7 fl (80-100); Mean Platelet Volume 10.7 fl (7.4-10.4); Monocytes Absolute Auto 0.6 K/mm3 (0.1-0.6); Monocytes Percent Auto 7.6 % (2.6-8.5); Neutrophils Absolute Auto 6.5 K/mm3 (1.3-6.7); Neutrophils Percent Auto 79.1 % (45.5-73.1); Platelet Count Result 101 k/mm3 (150-375); Red Blood Count 2.53 M/mm3 (4.6-6.20); Red Cell Distribution Width 16.2 % (11.5-14.5); White Blood Count 8.2 K/mm3 (4.5-10.0)
[2022-11-25 06:53] LABS: Anion Gap 10 mmol/L (8-16); Blood Urea Nitrogen 81 mg/dL (9-20); Calcium 7.1 mg/dL (8.4-10.2); Carbon Dioxide 13 mmol/L (22-30); Chloride 116 mmol/L (98-107); Estimated CRCL calculation 16 ml/min; Estimated Glomerular Filt Rate 17; Glucose 120 mg/dL (65-110); Potassium 3.6 mmol/L (3.4-5.0); Sodium 139 mmol/L (137-145)
[2022-11-25] MEDS: metroNIDAZOLE 500 MG/ISO 100ML 500 MG/100 ML BAG 100 MG IVPB ×3 (08:19→23:07)
[2022-11-25] MEDS: SODIUM BICARBONATE TAB 650 MG TABLET PO (08:25)
[2022-11-25] MEDS: EMPAGLIFLOZIN 10 MG TABLET PO (08:25)
[2022-11-25] MEDS: FINASTERIDE 5 MG TABLET PO (08:25)
[2022-11-25] MEDS: METOPROLOL TARTRATE 25 MG TABLET PO (08:25)
[2022-11-25] MEDS: FERROUS SULFATE 325 MG TABLET DR BY MOUTH (08:25)
[2022-11-25] MEDS: polyethylene glycoL 3350 17 GM POWD.PACK PO (08:26)
[2022-11-25] MEDS: MEROPENEM 500 MG in SODIUM CHLORIDE 0.9% IV 100 ML 200 ML IVPB ×2 (08:54→21:24)
--- NOTE | 2022-11-25 12:00 | PM.IMPN ---
Progress Note: A&P Assessment and Plan (1) Stercoral colitis: Code(s): K52.89 - Other specified noninfective gastroenteritis and colitis Status: Acute (2) Acute UTI: Code(s): N39.0 - Urinary tract infection, site not specified Status: Acute (3) Acute on chronic renal failure: Code(s): N17.9 - Acute kidney failure, unspecified; N18.9 - Chronic kidney disease, unspecified Status: Acute (4) Hypertension: Code(s): I10 - Essential (primary) hypertension Status: Acute (5) Anemia: Onset Date: ~08/2022 Qualifiers: Qualified Code(s): D50.0 - Iron deficiency anemia secondary to blood loss (chronic) Code(s): D64.9 - Anemia, unspecified Status: Acute (6) Dehydration: Code(s): E86.0 - Dehydration Status: Acute (7) Congestive heart failure: Code(s): I50.9 - Heart failure, unspecified Status: Acute (8) Dementia: Code(s): F03.90 - Unspecified dementia, unspecified severity, without behavioral disturbance, psychotic disturbance, mood disturbance, and anxiety Status: Acute Plan Patient confusion poor historian. Reports no complaints. Except for abdominal discomfort. Denies any nausea vomiting. Few red spots visible on his young. He was dropped off by his family in the ER had been able to be released. His hemoglobin was stable yesterday however dropped down to 5. Recheck the same. Emergently transfused this a.m.. Having issues with IV access. Has underlying CKD stage 4. Mostly at baseline level. UTI was noted has started on ceftriaxone IV. He is noted to have bacteremia with Chrissie in the past which was treated successfully. He CT abdomen and pelvis showed findings consistent with stercoral colitis. With fecal impaction and saccular infrarenal abdominal aortic aneurysm with interval enlargement. Repeat CT was obtained since H&H abruptly dropped to 5 to rule out any retroperitoneal bleed are at aortic leak. This was negative. I suspect he had GI bleed and hence he has been started on Protonix drip. GI consulted. Renal failure related uremic bleeding is another possibility as well. May try DDAVP if H&H still continues to decline. Continue to monitor H&H q.8 hour. Family consents for any GI procedure needed. NPO after midnight placed in case GI is planned to do any procedure today. Otherwise will start on clears. Metabolic acidosis non-anion gap likely related underlying renal failure. On bicarb drip will increase the drip to 75 cc an hour Hold aspirin Stercoral colitis will add Flagyl. Already on ceftriaxone Urine culture with Klebsiella pneumoniae. ESBL with switched to meropenem Subjective Date/time seen: 11/25/22 12:00 Interval history: Patient confusion poor historian. Reports no complaints. Except for abdominal discomfort. Denies any nausea vomiting. Few red spots visible on his young. He was dropped off by his family in the ER had been able to be released. His hemoglobin was stable yesterday however dropped down to 5. Recheck the same. Emergently transfused this a.m.. Having issues with IV access. Has underlying CKD stage 4. Mostly at baseline level. UTI was noted has started on ceftriaxone IV. He is noted to have bacteremia with Chrissie in the past which was treated successfully. He CT abdomen and pelvis showed findings consistent with stercoral colitis. With fecal impaction and saccular infrarenal abdominal aortic aneurysm with interval enlargement. Repeat CT was obtained since H&H abruptly dropped to 5 to rule out any retroperitoneal bleed are at aortic leak. This was negative. I suspect he had GI bleed and hence he has been started on Protonix drip. GI consulted and discussed with him. Monitor H&H q.8 hour 11/23/2022: No overnight events. Reports abdominal pain is better. No nausea vomiting. Is still confused. Looks a bit better than yesterday. Discussed with [id number] 11/25
--- NOTE | 2022-11-25 12:19 | P.CONNP_ITS ---
Assessment and Plan Assessment and plan (1) ANA CRISTINA (acute kidney injury): Code(s): N17.9 - Acute kidney failure, unspecified Status: Acute Assessment and Plan: * renal function worse in general but stable since admission * suspect multifactorial: * anemia * infection (UTI) * prerenal factors (?) * element of disease progression (?) * evaluation to date * imaging to date (CT of abdomen x 2) without obstruction * UA/urine cx c/w with infection * urine electrolytes pending * check CPK * on bicarb fluids for hydration and treatment of acidosis * follow trend of repeat labs and UOP (2) Chronic kidney disease, stage IV (severe): Code(s): N18.4 - Chronic kidney disease, stage 4 (severe) Status: Chronic Assessment and Plan: * baseline creatinine runs around 2.6 - 2.8mg/dl * presumably due to age, CHF, vascular disease, recurrent infections (3) Metabolic acidosis: Code(s): E87.20 - Acidosis, unspecified Status: Chronic Assessment and Plan: * appears to be a chronic issue (from review of previous labs) * like due to acute and chronic renal failure * on oral sodium bicarbonate as outpatient -- will increase dose while hospitalized * on bicarb fluids -- rate just increased * lactic acid and beta hydroxybutyrate negative (4) Acute UTI: Code(s): N39.0 - Urinary tract infection, site not specified Status: Acute Assessment and Plan: * admission UA suggestive * urine culture with Klebsiella * on antibiotics (5) Stercoral colitis: Code(s): K52.89 - Other specified noninfective gastroenteritis and colitis Status: Acute Assessment and Plan: * as noted by admission imaging * on antibiotics as well (6) Anemia: Onset Date: ~08/2022 Qualifiers: Qualified Code(s): D50.0 - Iron deficiency anemia secondary to blood loss (chronic) Code(s): D64.9 - Anemia, unspecified Status: Acute Assessment and Plan: * related to CKD versus GI loss versus both(?) * Gastroenterolgy following * CT of abdomen/pelvis x 2 noted * will empirically dose with Epogen * PRBC transfusion per protocol * possible EGD and colonoscopy(?) * follow trend of H/H (7) Hypertension: Code(s): I10 - Essential (primary) hypertension Status: Acute Assessment and Plan: * reasonable control * follow trend of hemodynamics Discussed case with Dr. Morfin. I will continue to follow the patient with you while remains hospitalized and make further recommendations as needed. Thank you for allowing me to participate in care this patient. History of Present Illness Reason for Consult Consult date: 11/25/22 Reason for consult: acute renal failure (on chronic kidney disease) and metabolic acidosis Chief Complaint Chief complaint: acute on chronic renal failure,uti,stercoralitis History of Present Illness Narrative: Most of the information I have obtained on the patient is from review of the electronic medical record as well as discussion with the physician / nurses involved in his care as the patient has dementia and is a poor historian with regard to the events that led to his presentation to the emergency room/hospital. The patient is an 87-year-old male with extensive past medical history as outlined below who presented to [facility] Emergency room due to c oncerns of nausea and vomit
--- NOTE | 2022-11-25 12:19 | PM.CNNEP ---
Assessment and Plan Assessment and plan (1) ANA CRISTINA (acute kidney injury): Code(s): N17.9 - Acute kidney failure, unspecified Status: Acute Assessment and Plan: renal function worse in general but stable since admission suspect multifactorial: anemia infection (UTI) prerenal factors (?) element of disease progression (?) evaluation to date imaging to date (CT of abdomen x 2) without obstruction UA/urine cx c/w with infection urine electrolytes pending check CPK on bicarb fluids for hydration and treatment of acidosis follow trend of repeat labs and UOP (2) Chronic kidney disease, stage IV (severe): Code(s): N18.4 - Chronic kidney disease, stage 4 (severe) Status: Chronic Assessment and Plan: baseline creatinine runs around 2.6 - 2.8mg/dl presumably due to age, CHF, vascular disease, recurrent infections (3) Metabolic acidosis: Code(s): E87.20 - Acidosis, unspecified Status: Chronic Assessment and Plan: appears to be a chronic issue (from review of previous labs) like due to acute and chronic renal failure on oral sodium bicarbonate as outpatient -- will increase dose while hospitalized on bicarb fluids -- rate just increased lactic acid and beta hydroxybutyrate negative (4) Acute UTI: Code(s): N39.0 - Urinary tract infection, site not specified Status: Acute Assessment and Plan: admission UA suggestive urine culture with Klebsiella on antibiotics (5) Stercoral colitis: Code(s): K52.89 - Other specified noninfective gastroenteritis and colitis Status: Acute Assessment and Plan: as noted by admission imaging on antibiotics as well (6) Anemia: Onset Date: ~08/2022 Qualifiers: Qualified Code(s): D50.0 - Iron deficiency anemia secondary to blood loss (chronic) Code(s): D64.9 - Anemia, unspecified Status: Acute Assessment and Plan: related to CKD versus GI loss versus both(?) Gastroenterolgy following CT of abdomen/pelvis x 2 noted will empirically dose with Epogen PRBC transfusion per protocol possible EGD and colonoscopy(?) follow trend of H/H (7) Hypertension: Code(s): I10 - Essential (primary) hypertension Status: Acute Assessment and Plan: reasonable control follow trend of hemodynamics Discussed case with Dr. Morfin. I will continue to follow the patient with you while remains hospitalized and make further recommendations as needed. Thank you for allowing me to participate in care this patient. History of Present Illness Reason for Consult Consult date: 11/25/22 Reason for consult: acute renal failure (on chronic kidney disease) and metabolic acidosis Chief Complaint Chief complaint: acute on chronic renal failure,uti,stercoralitis History of Present Illness Narrative: Most of the information I have obtained on the patient is from review of the electronic medical record as well as discussion with the physician / nurses involved in his care as the patient has dementia and is a poor historian with regard to the events that led to his presentation to the emergency room/hospital. The patient is an 87-year-old male with extensive past medical history as outlined below who presented to [facility] Emergency room due to concerns of nausea and vomiting. Apparently, his nausea and vomiting began at least 24 hours prior to his presentation to the emergency room. His family noticed evidence of emesis in his young but I am unclear exactly on when his last episode of vomiting occurred. However, given the concern of his family regarding this issue, he was transferred to the emergency room via EMS for further assessment. Workup and evaluation emergency room demonstrated the patient to be hemodynamically stable but routine blood test demonstrated labs consistent with acute kidney injury on top of his ba
--- NOTE | 2022-11-25 12:33 | WPDGIPROGNO ---
Progress Note: A&P Assessment and Plan (1) Acute on chronic anemia: Code(s): D64.9 - Anemia, unspecified Status: Acute Assessment and Plan: received blood transfusion CT scan without findings to explain anemia and RN reports no melena or obvious bleeding RN talked to POA, still unsure about scopes ok to switch to protonix bid and advance diet I can do EGD and colonoscopy once family makes a decision (3 months ago they refused scopes when he was in the hospital) (2) Stercoral colitis: Code(s): K52.89 - Other specified noninfective gastroenteritis and colitis Status: Acute Assessment and Plan: medical treatment (3) Acute UTI: Code(s): N39.0 - Urinary tract infection, site not specified Status: Acute Assessment and Plan: on iv abx (4) Dementia: Code(s): F03.90 - Unspecified dementia, unspecified severity, without behavioral disturbance, psychotic disturbance, mood disturbance, and anxiety Status: Acute Assessment and Plan: confused, can not participate on medical decisions (5) Acute kidney injury superimposed on CKD: Code(s): N17.9 - Acute kidney failure, unspecified; N18.9 - Chronic kidney disease, unspecified Status: Acute Assessment and Plan: probably renal failure also contributing to anemia consult nephrology Subjective Date/time seen: 11/25/22 12:33 Interval history: no signs of bleeding (RN reports that still no BM) Review of Systems Review of Systems: All systems reviewed & are unremarkable except as noted in HPI and below Exam Const: Other: awake and alert but confused HENMT: Face/Nose/Sinus: Normal nares present Eyes: Sclera: sclerae normal Neck: Neck: supple Resp: Effort & Inspection: normal respiratory effort Cardio: Rate: regular rate Heart sounds: Murmur heart sound present GI: GI Palp: Yes Soft to palpation and No Guarding due to palpation present (GI) Auscultation: normal bowel sounds Skin: Other: pallor Neuro: Speech: normal speech Motor exam (neuro): 5/5 motor strength present throughout Other: confused Extrem: General: normal to inspection Objective Data Vital Signs Vital Signs: Vital Signs - 24 hr 11/24/22 17:25 11/24/22 17:42 11/24/22 19:29 Temperature 97.7 F 97.6 F Pulse Rate 80 88 Respiratory Rate 16 16 Blood Pressure 103/56 L 98/67 L Pulse Oximetry 94 85 L Oxygen Delivery Nasal Cannula Oxygen Flow Rate 3 Fraction of Inspired Oxygen 32 11/24/22 20:34 11/24/22 20:00 11/24/22 20:00 Temperature 96.9 F L Pulse Rate 61 72 Respiratory Rate 16 19 Blood Pressure 97/60 L 104/58 L Pulse Oximetry 91 94 91 Oxygen Delivery Nasal Cannula Oxygen Flow Rate 3 Fraction of Inspired Oxygen 11/24/22 18:42 11/24/22 19:42 11/24/22 20:42 Temperature 97.1 F L 97.4 F L 97.6 F Pulse Rate 72 76 76 Respiratory Rate 19 17 17 Blood Pressure 104/58 L 102/62 106/66 Pulse Oximetry 94 93 92 Oxygen Delivery Oxygen Flow Rate Fraction of Inspired Oxygen 11/24/22 23:49 11/24/22 23:00 11/25/22 04:00 Temperature 97 F L 97 F L Pulse Rate 70 76 Respiratory Rate 17 16 Blood Pressure 104/60 110/58 L Pulse Oximetry 100 93 100 Oxygen Delivery Nasal Cannula Oxygen Flow Rate 2 Fraction of Inspired Oxygen 28 11/25/22 08:00 11/25/22 08:00 11/25/22 12:00 Temperature 97.1 F L 97.1 F L Pulse Rate 74 60 Respiratory Rate 16 16 Blood Pressure 124/59 L 121/57 L Pulse Oximetry 100 99 100 Oxygen Delivery Nasal Cannula Oxygen Flow Rate 1 Fraction of Inspired Oxygen Intake/Output Intake/Output: Intake & Output 11/22/22 11/23/22 11/24/22 11/25/22 23:59 23:59 23:59 23:59 Intake Total 2049 1950 1950 200 Output Total 200 1200 1000 500 Balance 1850 750 950 -300 Meds/Results Medications: Active Medications Generic Name Dose Route Start Last Admin Trade Name Freq PRN Reason Stop Dose Admin Acetaminoph
[2022-11-25] MEDS: SODIUM BICARBONATE 8.4% 150 MEQ in DEXTROSE 5% 1,000 ML 950 ML 75 MEQ IV CONT (14:55)
[2022-11-25] MEDS: CENTRAL LINE FLUSH 10 ML IV PUSH ×3 (14:55→21:21)
[2022-11-25] MEDS: SODIUM BICARBONATE TAB 650 MG TABLET 1300 MG PO (16:34)
[2022-11-25] MEDS: BISACODYL 5 MG TABLET EC 20 MG PO (16:35)
[2022-11-25] MEDS: polyethylene glycoL 3350 238 GM BOTTLE PO (16:35)
--- NOTE | 2022-11-25 19:33 | PC.NURSE ---
pt finished miralax bowel prep
[2022-11-25] MEDS: TAMSULOSIN HCL 0.4 MG CAPSULE PO (21:20)
[2022-11-25] MEDS: ESCITALOPRAM OXALATE 10 MG TABLET PO (21:20)
[2022-11-25] MEDS: PANTOPRAZOLE 40 MG TABLET PO (21:21)
[2022-11-25] MEDS: PRAVASTATIN SODIUM 20 MG TABLET 40 MG PO (21:21)
[2022-11-25] MEDS: SODIUM CHLORIDE 0.9% IV 100 ML 25 ML (21:50)
--- NOTE | 2022-11-25 22:00 | PC.NURSE ---
bp rechecked manually 104/62
[2022-11-26] VITALS (12 sets, daily range): BP systolic 103–167; BP diastolic 56–88; PULSE 66–80; RESP 16–20; TEMP 36.2–36.8; O2SAT 92–100
[2022-11-26 00:36] LABS: Hematocrit 22.4 % (42.0-52.0); Hemoglobin 7.2 g/dL (14.0-18.0)
[2022-11-26] MEDS: MAGNESIUM CITRATE 300 ML BTL PO ×2 (01:01→07:46)
[2022-11-26] MEDS: SODIUM BICARBONATE 8.4% 150 MEQ in DEXTROSE 5% 1,000 ML 950 ML 75 MEQ IV CONT (05:48)
[2022-11-26] MEDS: CENTRAL LINE FLUSH 10 ML IV PUSH ×4 (06:01→21:24)
[2022-11-26 06:07] LABS: Basophils Percent Auto 0.3 % (0.2-1.2); Eosinophils Absolute Auto 0.3 K/mm3 (0-0.3); Eosinophils Percent Auto 5.1 % (0-4.4); Hematocrit 21.7 % (42.0-52.0); Hemoglobin 7.2 g/dL (14.0-18.0); Immature Granulocyte Absolute 0.03 K/mm3 (0.00-0.031); Immature Granulocyte Percent A 0.5 % (0-0.5); Lymphocytes Absolute Auto 0.57 K/mm3 (0.9-3.2); Lymphocytes Percent Auto 8.6 % (18.3-44.2); Mean Corpuscular HGB Conc 33.2 g/dl (32-36); Mean Corpuscular Hemoglobin 29.9 pg (26-34); Mean Platelet Volume 10.2 fl (7.4-10.4); Monocytes Absolute Auto 0.7 K/mm3 (0.1-0.6); Monocytes Percent Auto 10.4 % (2.6-8.5); Neutrophils Percent Auto 75.1 % (45.5-73.1); Platelet Count Result 108 k/mm3 (150-375); Red Blood Count 2.41 M/mm3 (4.6-6.20); Red Cell Distribution Width 16.4 % (11.5-14.5); White Blood Count 6.6 K/mm3 (4.5-10.0)
--- NOTE | 2022-11-26 06:07 | PC.NURSE ---
gi lab called pt bm not clear.
[2022-11-26 06:14] LABS: Alanine Aminotransferase 17 U/L (6-50); Albumin Level 2.1 g/dL (3.5-5.1); Alkaline Phosphatase 49 U/L (38-126); Anion Gap 7 mmol/L (8-16); Aspartate Amino Transferase 21 U/L (17-59); Bilirubin,Total 0.5 mg/dL (0.2-1.3); Blood Urea Nitrogen 71 mg/dL (9-20); Calcium 7.1 mg/dL (8.4-10.2); Carbon Dioxide 17 mmol/L (22-30); Chloride 114 mmol/L (98-107); Estimated CRCL calculation 16 ml/min; Estimated Glomerular Filt Rate 17; Glucose 117 mg/dL (65-110); Magnesium 1.7 mg/dL (1.6-2.3); Sodium 138 mmol/L (137-145)
[2022-11-26 06:16] LABS: Creatinine Urine 51.9 mg/dL; Total Protein Urine Random 33 mg/dL; Ur Ttl Prot Creatinine Ratio 0.64 mg/mg (0-0.20); Urea Random Urine 785 MG/DL
[2022-11-26 06:17] LABS: Sodium Urine Random 52 meq/L
[2022-11-26] MEDS: metroNIDAZOLE 500 MG/ISO 100ML 500 MG/100 ML BAG 100 MG IVPB (07:45)
[2022-11-26] MEDS: polyethylene glycoL 3350 17 GM POWD.PACK PO (07:50)
[2022-11-26] MEDS: MEROPENEM 500 MG in SODIUM CHLORIDE 0.9% IV 100 ML 200 ML IVPB (07:52)
[2022-11-26] MEDS: FINASTERIDE 5 MG TABLET PO (07:52)
[2022-11-26] MEDS: EMPAGLIFLOZIN 10 MG TABLET PO (07:53)
[2022-11-26] MEDS: PANTOPRAZOLE 40 MG TABLET PO (07:53)
[2022-11-26] MEDS: SODIUM BICARBONATE TAB 650 MG TABLET 1300 MG PO ×2 (07:53→17:07)
[2022-11-26] MEDS: FERROUS SULFATE 325 MG TABLET DR BY MOUTH (07:53)
[2022-11-26] MEDS: METOPROLOL TARTRATE 25 MG TABLET PO ×2 (07:53→20:10)
[2022-11-26 08:10] LABS: Eosinophil Urine Rare % (None Seen); Urine Eos QC 2nd Tech Confirmed
--- NOTE | 2022-11-26 09:55 | P.PNNP_ITS ---
Progress Note: A&P Assessment and Plan (1) ANA CRISTINA (acute kidney injury): Code(s): N17.9 - Acute kidney failure, unspecified Status: Acute Assessment and Plan: * renal function worse in general but stable since admission * suspect multifactorial: * anemia * infection (UTI) * prerenal factors (?) * element of disease progression (?) * evaluation to date * imaging to date (CT of abdomen x 2) without obstruction * UA/urine cx c/w with infection * urine electrolytes non prerenal * CPK pending * on bicarb fluids for hydration and treatment of acidosis * follow trend of repeat labs and UOP (2) Chronic kidney disease, stage IV (severe): Code(s): N18.4 - Chronic kidney disease, stage 4 (severe) Status: Chronic Assessment and Plan: * baseline creatinine runs around 2.6 - 2.8mg/dl * presumably due to age, CHF, vascular disease, recurrent infections (3) Metabolic acidosis: Code(s): E87.20 - Acidosis, unspecified Status: Chronic Assessment and Plan: * improving * appears to be a chronic issue (from review of previous labs) * likely due to acute and chronic renal failure * on oral sodium bicarbonate as outpatient -- on increased dose while hospitalized * on bicarb fluids as well - wean as tolerated * lactic acid and beta hydroxybutyrate negative (4) Acute UTI: Code(s): N39.0 - Urinary tract infection, site not specified Status: Acute Assessment and Plan: * admission UA suggestive * urine culture with Klebsiella * on antibiotics (5) Stercoral colitis: Code(s): K52.89 - Other specified noninfective gastroenteritis and colitis Status: Acute Assessment and Plan: * as noted by admission imaging * on antibiotics as well (6) Anemia: Onset Date: ~08/2022 Qualifiers: Qualified Code(s): D50.0 - Iron deficiency anemia secondary to blood loss (chronic) Code(s): D64.9 - Anemia, unspecified Status: Acute Assessment and Plan: * related to CKD versus GI loss versus both(?) * Gastroenterolgy following * CT of abdomen/pelvis x 2 noted * will empirically dose with Epogen * PRBC transfusion per protocol * possible EGD and colonoscopy(?) * follow trend of H/H (7) Hypertension: Code(s): I10 - Essential (primary) hypertension Status: Acute Assessment and Plan: * reasonable control * follow trend of hemodynamics Will continue to follow. Subjective Date/time seen: 11/26/22 09:55 Interval history: Follow-up for acute kidney injury/acute renal failure on chronic kidney disease and metabolic acidosis. No apparent distress noted at the time of my visit; pleasantly confused; possible EGD/colonoscopy today; renal function remains stable (no better and no worse) with improvement in metabolic acidosis; no acute issues/events overnight. Exam Narrative: General: elderly male in NAD Heart: normal S1 and S2; no rub Lungs: coarse and decreased at bases Abdomen: soft, mild TTP (lower abdomen), positive bowel sounds Extremities: no cyanosis or clubbing; no edema Skin: warm and dry Objective Data Vital Signs Vital Signs: Vital Signs Temp Pulse Resp BP Pulse Ox O2 Del Method O2 Flow Rate
--- NOTE | 2022-11-26 09:55 | PM.PNNEP ---
Progress Note: A&P Assessment and Plan (1) ANA CRISTINA (acute kidney injury): Code(s): N17.9 - Acute kidney failure, unspecified Status: Acute Assessment and Plan: renal function worse in general but stable since admission suspect multifactorial: anemia infection (UTI) prerenal factors (?) element of disease progression (?) evaluation to date imaging to date (CT of abdomen x 2) without obstruction UA/urine cx c/w with infection urine electrolytes non prerenal CPK pending on bicarb fluids for hydration and treatment of acidosis follow trend of repeat labs and UOP (2) Chronic kidney disease, stage IV (severe): Code(s): N18.4 - Chronic kidney disease, stage 4 (severe) Status: Chronic Assessment and Plan: baseline creatinine runs around 2.6 - 2.8mg/dl presumably due to age, CHF, vascular disease, recurrent infections (3) Metabolic acidosis: Code(s): E87.20 - Acidosis, unspecified Status: Chronic Assessment and Plan: improving appears to be a chronic issue (from review of previous labs) likely due to acute and chronic renal failure on oral sodium bicarbonate as outpatient -- on increased dose while hospitalized on bicarb fluids as well - wean as tolerated lactic acid and beta hydroxybutyrate negative (4) Acute UTI: Code(s): N39.0 - Urinary tract infection, site not specified Status: Acute Assessment and Plan: admission UA suggestive urine culture with Klebsiella on antibiotics (5) Stercoral colitis: Code(s): K52.89 - Other specified noninfective gastroenteritis and colitis Status: Acute Assessment and Plan: as noted by admission imaging on antibiotics as well (6) Anemia: Onset Date: ~08/2022 Qualifiers: Qualified Code(s): D50.0 - Iron deficiency anemia secondary to blood loss (chronic) Code(s): D64.9 - Anemia, unspecified Status: Acute Assessment and Plan: related to CKD versus GI loss versus both(?) Gastroenterolgy following CT of abdomen/pelvis x 2 noted will empirically dose with Epogen PRBC transfusion per protocol possible EGD and colonoscopy(?) follow trend of H/H (7) Hypertension: Code(s): I10 - Essential (primary) hypertension Status: Acute Assessment and Plan: reasonable control follow trend of hemodynamics Will continue to follow. Subjective Date/time seen: 11/26/22 09:55 Interval history: Follow-up for acute kidney injury/acute renal failure on chronic kidney disease and metabolic acidosis. No apparent distress noted at the time of my visit; pleasantly confused; possible EGD/colonoscopy today; renal function remains stable (no better and no worse) with improvement in metabolic acidosis; no acute issues/events overnight. Exam Narrative: General: elderly male in NAD Heart: normal S1 and S2; no rub Lungs: coarse and decreased at bases Abdomen: soft, mild TTP (lower abdomen), positive bowel sounds Extremities: no cyanosis or clubbing; no edema Skin: warm and dry Objective Data Vital Signs Vital Signs: Vital Signs Temp Pulse Resp BP Pulse Ox O2 Del Method O2 Flow Rate 11/26/22 07:46 98.3 F 77 19 149/71 H 99 11/26/22 04:34 97.4 F L 77 16 136/67 100 11/26/22 00:12 97.4 F L 73 16 113/56 L 92 11/25/22 22:00 104/62 11/25/22 20:35 98.4 F 80 16 94/44 L 96 11/25/22 21:22 80 11/25/22 19:43 95 Nasal Cannula 1 11/25/22 16:00 97.0 F L 62 16 130/66 100 11/25/22 12:00 97.1 F L 60 16 121/57 L 100 Intake/Output Intake/Output: Intake & Output 11/23/22 11/24/22 11/25/22 11/26/22 23:59 23:59 23:59 23:59 Intake Total 1950 1950 1820 1200 Output Total 1200 1000 900 500 Balance 750 950 920 700 Meds/Results Medications: Active Medications Generic Name Dose Route Start Last Admin Trade Name Freq PRN
[2022-11-26] MEDS: POTASSIUM CHLORIDE 20 MEQ ER TABLET 40 MEQ PO (11:59)
[2022-11-26] MEDS: LACTATED RINGERS 1,000 ML 150 ML IV CONT (12:29)
--- NOTE | 2022-11-26 13:14 | WPDANESEPPF ---
Anes - Initial Pre Proc Eval Procedure: Operation Date: 11/26/22 14:45 Proposed Procedures p Esophagogastroduodenoscopy & Colonoscopy - Kobe Kwan MD Date/Time: 11/26/22 13:14 Surgeon: Brendon Morfin MD Pre Op Diagnosis: acute on chronic renal failure,uti,stercoralitis Patient Data Age: 87 Gender: M Height: 1.83 m Weight: 85.7 kg Last Vital Signs Temp 97.6 F 11/26/22 12:27 Pulse 77 11/26/22 12:27 Resp 18 11/26/22 12:27 BP 164/74 H 11/26/22 12:27 Pulse Ox 100 11/26/22 12:27 O2 Del Method Room Air 11/26/22 12:27 O2 Flow Rate 1 11/26/22 08:00 FiO2 28 11/24/22 23:00 Allergies Allergy/AdvReac Type Severity Reaction Status Date / Time No Known Allergies Allergy Verified 11/26/22 12:25 Home Medications Medication Instructions Recorded Confirmed Type finasteride 5 mg tablet 5 mg PO DAILY #30 tabs 07/11/22 11/23/22 Rx empagliflozin 10 mg tablet 10 mg PO DAILY 08/08/22 11/23/22 History (Jardiance) escitalopram oxalate 10 mg tablet 10 mg PO HS 08/08/22 11/23/22 History ferrous sulfate 325 mg (65 mg 325 mg PO DAILY 08/08/22 11/23/22 History iron) tablet methenamine hippurate 1 gram tablet 1 g PO DAILY 08/08/22 11/23/22 History metoprolol tartrate 25 mg tablet 25 mg PO HS 08/08/22 11/23/22 History pravastatin 40 mg tablet 40 mg PO HS 08/08/22 11/23/22 History sodium bicarbonate 650 mg tablet 650 mg PO BID 08/08/22 11/23/22 History tamsulosin 0.4 mg capsule 0.4 mg PO HS 08/08/22 11/23/22 History nitroglycerin 0.4 mg sublingual 0.4 mg sublingual Q5MIN PRN Chest 08/30/22 11/23/22 Rx tablet (Nitrostat) Pain #25 tabs pantoprazole 40 mg tablet,delayed 40 mg PO Q12HR #60 tabs 08/30/22 11/23/22 Rx release aspirin 81 mg tablet,delayed 81 mg PO DAILY 11/23/22 11/23/22 History release Laboratory Tests 11/26/22 11/26/22 11/26/22 00:17 05:58 05:59 WBC 6.6 K/mm3 (4.5-10.0) RBC 2.41 L M/mm3 (4.6-6.20) Hgb 7.2 L g/dL 7.2 L g/dL (14.0-18.0) (14.0-18.0) Hct 22.4 L % 21.7 L % (42.0-52.0) (42.0-52.0) MCV 90.0 fl (80-100) MCH 29.9 pg (26-34) MCHC 33.2 g/dl (32-36) RDW 16.4 H % (11.5-14.5) Plt Count 108 L k/mm3 (150-375) MPV 10.2 fl (7.4-10.4) Immature Gran % (Auto) 0.5 % (0-0.5) Neut % (Auto) 75.1 H % (45.5-73.1) Lymph % (Auto) 8.6 L % (18.3-44.2) [place] % (Auto) 10.4 H % (2.6-8.5) Eos % (Auto) 5.1 H % (0-4.4) Baso % (Auto) 0.3 % (0.2-1.2) Lymph # (Auto) 0.57 L K/mm3 (0.9-3.2) [place] # (Auto) 0.7 H K/mm3 (0.1-0.6) Eos # (Auto) 0.3 K/mm3 (0-0.3) Baso # (Auto) 0.0 K/mm3 (0.0-0.1) Abs Immat Gran (auto) 0.03 K/mm3 (0.00-0.031) Absolute Neuts (auto) 5.0 K/mm3 (1.3-6.7) Absolute Nucleated RBC 0.0 K/mm3 (0.0-0.012) Nucleated RBC % 0.0 % (0.0-0.2) Sodium 138 mmol/L (137-145) Potassium 3.0 L mmol/L (3.4-5.0) Chloride 114 H mmol/L (98-107) Carbon Dioxide 17 L mmol/L (22-30) Anion Gap 7 L mmol/L (8-16) BUN 71 H D mg/dL (9-20) Creatinine 3.40 H mg/dL (0.7-1.3) Estim Creat Clear Calc 16 ml/min Estimated GFR 17 L (59 - ) Glucose 117 H mg/dL (65-110) Calcium 7.1 L mg/dL (8.4-10.2) Magnesium 1.7 mg/dL (1.6-2.3) Total Bilirubin 0.5 mg/dL (0.2-1.3) AST 21 U/L (17-59) ALT 17 U/L (6-50) Alkaline Phosphatase 49 U/L (38-126) Total Protein 5.0 L g/dL (6.3-8.2) Albumin 2.1 L g/dL (3.5-5.1) Urine Eosinophils Rare % (None Seen) U Random Total Protein 33 mg/dL Ur Random Sodium 52 meq/L Ur Random Urea 785 MG/DL Urine Creatinine 51.9 mg/dL
--- NOTE | 2022-11-26 13:29 | SUR.OPER ---
EGD start 1319 end 1324, Colonoscopy start 1329
--- NOTE | 2022-11-26 16:12 | PM.IMPN ---
Progress Note: A&P Assessment and Plan (1) Stercoral colitis: Code(s): K52.89 - Other specified noninfective gastroenteritis and colitis Status: Acute (2) Acute UTI: Code(s): N39.0 - Urinary tract infection, site not specified Status: Acute (3) Acute on chronic renal failure: Code(s): N17.9 - Acute kidney failure, unspecified; N18.9 - Chronic kidney disease, unspecified Status: Acute (4) Hypertension: Code(s): I10 - Essential (primary) hypertension Status: Acute (5) Anemia: Onset Date: ~08/2022 Qualifiers: Qualified Code(s): D50.0 - Iron deficiency anemia secondary to blood loss (chronic) Code(s): D64.9 - Anemia, unspecified Status: Acute (6) Dehydration: Code(s): E86.0 - Dehydration Status: Acute (7) Congestive heart failure: Code(s): I50.9 - Heart failure, unspecified Status: Acute (8) Dementia: Code(s): F03.90 - Unspecified dementia, unspecified severity, without behavioral disturbance, psychotic disturbance, mood disturbance, and anxiety Status: Acute Plan Patient confusion poor historian. Reports no complaints. Except for abdominal discomfort. Denies any nausea vomiting. Few red spots visible on his young. He was dropped off by his family in the ER had been able to be released. His hemoglobin was stable yesterday however dropped down to 5. Recheck the same. Emergently transfused PRBC. Having issues with IV access. Has underlying CKD stage 4. Mostly at baseline level. UTI was noted has started on ceftriaxone IV. He is noted to have bacteremia with Chrissie in the past which was treated successfully. He CT abdomen and pelvis showed findings consistent with stercoral colitis. With fecal impaction and saccular infrarenal abdominal aortic aneurysm with interval enlargement. Repeat CT was obtained since H&H abruptly dropped to 5 to rule out any retroperitoneal bleed are at aortic leak. This was negative. I suspect he had GI bleed and hence he has been started on Protonix drip. GI consulted. EGD with findings of hiatal hernia and mild gastritis. Colonoscopy with diverticulosis no signs of bleeding. Will stop Protonix drip and change to oral Protonix. Renal failure related uremic bleeding is another possibility as well. May try DDAVP if H&H still continues to decline. Continue to monitor H&H for now. Metabolic acidosis non-anion gap likely related underlying renal failure. On bicarb drip on 75 cc an hour Hold aspirin Stercoral colitis will add Flagyl. Already on ceftriaxone with switched to ertapenem Urine culture with Klebsiella pneumoniae. ESBL switched to meropenem and now will switch to ertapenem Replace potassium Subjective Date/time seen: 11/26/22 16:12 Interval history: No overnight events. Patient underwent EGD and colonoscopy today. EGD with findings of hiatal hernia and gastritis. No signs of bleeding. Colonoscopy with diverticulosis without perforation or abscess without bleeding. Remains on bicarb drip Review of Systems Review of Systems: All systems reviewed & are unremarkable except as noted in HPI and below Exam Narrative: General physical exam: patient feels tired and fatigued, lying in bed, no acute distress remains confused Head/eyes: Atraumatic, EOMI, PERRLA ENT: +dry mucous membranes, nasal passages clear Neck: Supple, full range of motion, trachea midline CVS: S1 + S2, regular rate and rhythm, +2/6 systolic ejection murmur Respiratory: Bilaterally fair air entry in both lung perez, mild B/L crackles, symmetric chest expansion, no distress Abdomen: Soft, + mild lower abdominal tenderness on palpation, bowel sounds +ve, no organomegaly Extremities: No clubbing, no cyanosis, no edema, no calf tenderness Musculoskeletal: Moves all, adequate range of motion, no muscle spasms Skin: Warm, dry, no jaundice, no cyanosis Neurological: Awake, alert, cranial nerves II-X
--- NOTE | 2022-11-26 16:30 | PCPTNOTE ---
Attempted PT evaluation, pt refused stating get out! RN aware. Will follow.
[2022-11-26] MEDS: ERTAPENEM SODIUM 0.5 GM in SODIUM CHLORIDE 0.9% IV 50 ML IVPB (17:08)
[2022-11-26] MEDS: PRAVASTATIN SODIUM 20 MG TABLET 40 MG PO (20:07)
[2022-11-26] MEDS: ESCITALOPRAM OXALATE 10 MG TABLET PO (20:07)
[2022-11-26] MEDS: TAMSULOSIN HCL 0.4 MG CAPSULE PO (20:07)
[2022-11-27] VITALS (10 sets, daily range): BP systolic 147–158; BP diastolic 7–83; PULSE 58–80; RESP 16–20; TEMP 35.9–36.7; O2SAT 98–100
[2022-11-27] MEDS: SODIUM BICARBONATE 8.4% 150 MEQ in DEXTROSE 5% 1,000 ML 950 ML 75 MEQ IV CONT (02:14)
[2022-11-27] MEDS: CENTRAL LINE FLUSH 10 ML IV PUSH ×5 (05:48→21:38)
[2022-11-27 06:50] LABS: Basophils Percent Auto 0.3 % (0.2-1.2); Eosinophils Absolute Auto 0.3 K/mm3 (0-0.3); Eosinophils Percent Auto 4.2 % (0-4.4); Hematocrit 21.3 % (42.0-52.0); Immature Granulocyte Absolute 0.03 K/mm3 (0.00-0.031); Immature Granulocyte Percent A 0.5 % (0-0.5); Lymphocytes Absolute Auto 0.71 K/mm3 (0.9-3.2); Lymphocytes Percent Auto 11.5 % (18.3-44.2); Mean Corpuscular HGB Conc 32.9 g/dl (32-36); Mean Corpuscular Hemoglobin 29.7 pg (26-34); Mean Corpuscular Volume 90.3 fl (80-100); Mean Platelet Volume 10.9 fl (7.4-10.4); Monocytes Absolute Auto 0.7 K/mm3 (0.1-0.6); Monocytes Percent Auto 11.8 % (2.6-8.5); Neutrophils Absolute Auto 4.4 K/mm3 (1.3-6.7); Neutrophils Percent Auto 71.7 % (45.5-73.1); Platelet Count Result 111 k/mm3 (150-375); Red Blood Count 2.36 M/mm3 (4.6-6.20); Red Cell Distribution Width 16.1 % (11.5-14.5); White Blood Count 6.2 K/mm3 (4.5-10.0)
--- NOTE | 2022-11-27 06:58 | PC.NURSE ---
called critical to MD tirado awaiting call back
[2022-11-27 07:05] LABS: Alanine Aminotransferase 16 U/L (6-50); Albumin Level 2.2 g/dL (3.5-5.1); Alkaline Phosphatase 50 U/L (38-126); Anion Gap 5 mmol/L (8-16); Aspartate Amino Transferase 18 U/L (17-59); Bilirubin,Total 0.5 mg/dL (0.2-1.3); Blood Urea Nitrogen 63 mg/dL (9-20); Calcium 7.4 mg/dL (8.4-10.2); Carbon Dioxide 23 mmol/L (22-30); Chloride 110 mmol/L (98-107); Creatine Kinase 21 U/L (55-170); Estimated CRCL calculation 16 ml/min; Estimated Glomerular Filt Rate 17; Glucose 113 mg/dL (65-110); Magnesium 1.8 mg/dL (1.6-2.3); Potassium 2.8 mmol/L (3.4-5.0); Sodium 138 mmol/L (137-145)
--- NOTE | 2022-11-27 07:07 | PC.NURSE ---
40 meq po potassium, and hold bicarb drip this morning. No blood needed at this time per MD Morfin
[2022-11-27 07:59] LABS: Glucose Point of Care 128 mg/dl (65-105)
--- NOTE | 2022-11-27 09:40 | P.PNNP_ITS ---
Progress Note: A&P Assessment and Plan (1) ANA CRISTINA (acute kidney injury): Code(s): N17.9 - Acute kidney failure, unspecified Status: Acute Assessment and Plan: * renal function worse in general but stable since admission * suspect multifactorial: * anemia * infection (UTI) * prerenal factors (?) * element of disease progression (?) * evaluation to date * imaging to date (CT of abdomen x 2) without obstruction * UA/urine cx c/w with infection * urine electrolytes non prerenal * CPK low * follow trend of repeat labs and UOP (2) Chronic kidney disease, stage IV (severe): Code(s): N18.4 - Chronic kidney disease, stage 4 (severe) Status: Chronic Assessment and Plan: * baseline creatinine runs around 2.6 - 2.8mg/dl * presumably due to age, CHF, vascular disease, recurrent infections * perhaps current creatinine is his new baseline(?) (3) Metabolic acidosis: Code(s): E87.20 - Acidosis, unspecified Status: Chronic Assessment and Plan: * improving/resolving * appears to be a chronic issue (from review of previous labs) * likely due to acute and chronic renal failure * on oral sodium bicarbonate as outpatient * on bicarb fluids as well - likely okay to stop/discontinue * lactic acid and beta hydroxybutyrate negative (4) Acute UTI: Code(s): N39.0 - Urinary tract infection, site not specified Status: Acute Assessment and Plan: * admission UA suggestive * urine culture with Klebsiella * on antibiotics (5) Stercoral colitis: Code(s): K52.89 - Other specified noninfective gastroenteritis and colitis Status: Acute Assessment and Plan: * as noted by admission imaging * on antibiotics as well (6) Anemia: Onset Date: ~08/2022 Qualifiers: Qualified Code(s): D50.0 - Iron deficiency anemia secondary to blood loss (chronic) Code(s): D64.9 - Anemia, unspecified Status: Acute Assessment and Plan: * related to CKD versus GI loss versus both(?) * Gastroenterolgy following * EGD and colonoscopy (on 11/26/22) results noted * CT of abdomen/pelvis x 2 noted * dose with Epogen WHILE HOSPITALIZED * PRBC transfusion per protocol * follow trend of H/H (7) Hypertension: Code(s): I10 - Essential (primary) hypertension Status: Acute Assessment and Plan: * reasonable control * follow trend of hemodynamics Will continue to follow. Subjective Date/time seen: 11/27/22 09:40 Interval history: Follow-up for acute kidney injury/acute renal failure on chronic kidney disease and metabolic acidosis. S/P EGD and colonoscopy yesterday with results noted; renal function remains stable and noted improvement in metabolic acidosis; still requiring supplemental oxygen; remains confused but in no acute distress; H/H still low with downward trend noted (an element of dilution from IVFs?). Exam Narrative: General: elderly male in NAD Heart: normal S1 and S2; no rub Lungs: coarse and decreased at bases Abdomen: soft, mild TTP (lower abdomen), positive bowel sounds Extremities: no cyanosis or clubbing; no edema Skin: warm and intact Objective Data Vital Signs Vital Signs: Vital Signs Temp Pulse Resp BP Pulse Ox
--- NOTE | 2022-11-27 09:40 | PM.PNNEP ---
Progress Note: A&P Assessment and Plan (1) ANA CRISTINA (acute kidney injury): Code(s): N17.9 - Acute kidney failure, unspecified Status: Acute Assessment and Plan: renal function worse in general but stable since admission suspect multifactorial: anemia infection (UTI) prerenal factors (?) element of disease progression (?) evaluation to date imaging to date (CT of abdomen x 2) without obstruction UA/urine cx c/w with infection urine electrolytes non prerenal CPK low follow trend of repeat labs and UOP (2) Chronic kidney disease, stage IV (severe): Code(s): N18.4 - Chronic kidney disease, stage 4 (severe) Status: Chronic Assessment and Plan: baseline creatinine runs around 2.6 - 2.8mg/dl presumably due to age, CHF, vascular disease, recurrent infections perhaps current creatinine is his new baseline(?) (3) Metabolic acidosis: Code(s): E87.20 - Acidosis, unspecified Status: Chronic Assessment and Plan: improving/resolving appears to be a chronic issue (from review of previous labs) likely due to acute and chronic renal failure on oral sodium bicarbonate as outpatient on bicarb fluids as well - likely okay to stop/discontinue lactic acid and beta hydroxybutyrate negative (4) Acute UTI: Code(s): N39.0 - Urinary tract infection, site not specified Status: Acute Assessment and Plan: admission UA suggestive urine culture with Klebsiella on antibiotics (5) Stercoral colitis: Code(s): K52.89 - Other specified noninfective gastroenteritis and colitis Status: Acute Assessment and Plan: as noted by admission imaging on antibiotics as well (6) Anemia: Onset Date: ~08/2022 Qualifiers: Qualified Code(s): D50.0 - Iron deficiency anemia secondary to blood loss (chronic) Code(s): D64.9 - Anemia, unspecified Status: Acute Assessment and Plan: related to CKD versus GI loss versus both(?) Gastroenterolgy following EGD and colonoscopy (on 11/26/22) results noted CT of abdomen/pelvis x 2 noted dose with Epogen WHILE HOSPITALIZED PRBC transfusion per protocol follow trend of H/H (7) Hypertension: Code(s): I10 - Essential (primary) hypertension Status: Acute Assessment and Plan: reasonable control follow trend of hemodynamics Will continue to follow. Subjective Date/time seen: 11/27/22 09:40 Interval history: Follow-up for acute kidney injury/acute renal failure on chronic kidney disease and metabolic acidosis. S/P EGD and colonoscopy yesterday with results noted; renal function remains stable and noted improvement in metabolic acidosis; still requiring supplemental oxygen; remains confused but in no acute distress; H/H still low with downward trend noted (an element of dilution from IVFs?). Exam Narrative: General: elderly male in NAD Heart: normal S1 and S2; no rub Lungs: coarse and decreased at bases Abdomen: soft, mild TTP (lower abdomen), positive bowel sounds Extremities: no cyanosis or clubbing; no edema Skin: warm and intact Objective Data Vital Signs Vital Signs: Vital Signs Temp Pulse Resp BP Pulse Ox O2 Del Method O2 Flow Rate 11/27/22 08:00 97.6 F 69 16 158/76 H 100 11/27/22 04:00 97.9 F 73 20 153/78 H 99 11/27/22 00:00 98.1 F 76 20 158/83 H 98 11/26/22 20:00 79 20 99 Room Air 11/26/22 20:00 98.3 F 79 20 167/88 H 99 11/26/22 20:10 79 11/26/22 17:03 97.1 F L 80 17 153/65 H 100 11/26/22 14:15 68 18 139/74 100 Room Air 11/26/22 14:05 67 16 123/70 94 Room Air 11/26/22 13:55 66 20 103/61 92 Room Air 11/26/22 12:27 97.6 F 77 18 164/74 H 100 Room Air 11/26/22 11:51 97.1 F L 77 19 146/71 H 100 Intake/Output Intake/Output: Intake & Output 11/24/22 11/25/22 11/26/22 11/27/22 23:59 23:5
[2022-11-27] MEDS: EMPAGLIFLOZIN 10 MG TABLET PO (10:00)
[2022-11-27] MEDS: PANTOPRAZOLE 40 MG TABLET PO (10:00)
[2022-11-27] MEDS: FINASTERIDE 5 MG TABLET PO (10:00)
[2022-11-27] MEDS: FERROUS SULFATE 325 MG TABLET DR BY MOUTH (10:00)
[2022-11-27] MEDS: METOPROLOL TARTRATE 25 MG TABLET PO ×2 (10:00→21:36)
[2022-11-27] MEDS: polyethylene glycoL 3350 17 GM POWD.PACK PO (10:01)
--- NOTE | 2022-11-27 11:48 | PCPTNOTE ---
Attempted PT evaluation, pt refused. RN present for pt refusal. Will follow.
[2022-11-27 12:00] LABS: Glucose Point of Care 148 mg/dl (65-105)
[2022-11-27] MEDS: POTASSIUM CHLORIDE 20 MEQ ER TABLET 40 MEQ PO (12:30)
--- NOTE | 2022-11-27 13:17 | WPDGIPROGNO ---
Progress Note: A&P Assessment and Plan (1) Acute on chronic anemia: Code(s): D64.9 - Anemia, unspecified Status: Acute Assessment and Plan: received blood transfusion, hgb ~ 7-8 CT scan without findings to explain anemia egd and colonoscopy yesterday, no signs of bleeding, found large hiatal hernia and no colitis anemia probably multifactorial, he also has renal disease will follow from [place] as needed (2) Stercoral colitis: Code(s): K52.89 - Other specified noninfective gastroenteritis and colitis Status: Acute Assessment and Plan: noted large amount of stool in rectum that was removed, no signs of colitis (3) Acute UTI: Code(s): N39.0 - Urinary tract infection, site not specified Status: Acute Assessment and Plan: on iv abx per primary (4) Dementia: Code(s): F03.90 - Unspecified dementia, unspecified severity, without behavioral disturbance, psychotic disturbance, mood disturbance, and anxiety Status: Acute Assessment and Plan: confused, can not participate on medical decisions (5) Acute kidney injury superimposed on CKD: Code(s): N17.9 - Acute kidney failure, unspecified; N18.9 - Chronic kidney disease, unspecified Status: Acute Assessment and Plan: metabolic acidosis better nephrology on board Subjective Date/time seen: 11/27/22 13:17 Interval history: doing ok, he is comfortable. egd yesterday with mild gastritis, large hiatal hernia, no colitis or anything to explain anemia. Review of Systems Review of Systems: All systems reviewed & are unremarkable except as noted in HPI and below Exam Const: Other: awake and alert, talking but confused as baseline HENMT: Face/Nose/Sinus: Normal nares present Eyes: Sclera: sclerae normal Neck: Neck: supple Resp: Effort & Inspection: normal respiratory effort Cardio: Rate: regular rate Heart sounds: Murmur heart sound present GI: GI Palp: Yes Soft to palpation and No Guarding due to palpation present (GI) Auscultation: normal bowel sounds Skin: General skin exam: no rashes or lesions noted Neuro: Speech: normal speech Motor exam (neuro): 5/5 motor strength present throughout Other: confused Extrem: General: normal to inspection Objective Data Vital Signs Vital Signs: Vital Signs - 24 hr 11/26/22 13:55 11/26/22 14:05 11/26/22 14:15 Temperature Pulse Rate 66 67 68 Respiratory Rate 20 16 18 Blood Pressure 103/61 123/70 139/74 Pulse Oximetry 92 94 100 Oxygen Delivery Room Air Room Air Room Air Oxygen Flow Rate 11/26/22 17:03 11/26/22 20:10 11/26/22 20:00 Temperature 97.1 F L 98.3 F Pulse Rate 80 79 79 Respiratory Rate 17 20 Blood Pressure 153/65 H 167/88 H Pulse Oximetry 100 99 Oxygen Delivery Oxygen Flow Rate 11/26/22 20:00 11/27/22 00:00 11/27/22 04:00 Temperature 98.1 F 97.9 F Pulse Rate 79 76 73 Respiratory Rate 20 20 20 Blood Pressure 158/83 H 153/78 H Pulse Oximetry 99 98 99 Oxygen Delivery Room Air Oxygen Flow Rate 11/27/22 08:00 11/27/22 10:00 11/27/22 09:59 Temperature 97.6 F Pulse Rate 69 72 Respiratory Rate 16 Blood Pressure 158/76 H Pulse Oximetry 100 100 Oxygen Delivery Nasal Cannula Oxygen Flow Rate 2 Intake/Output Intake/Output: Intake & Output 11/24/22 11/25/22 11/26/22 11/27/22 23:59 23:59 23:59 23:59 Intake Total 1950 1820 2260 1770 Output Total 1000 900 750 750 Balance 305 939 9715 1020 Meds/Results Medications: Active Medications Generic Name Dose Route Start Last Admin Trade Name Freq PRN Reason Stop Dose Admin Acetaminophen 650 mg 11/23/22 05:49 Acetaminophen 325 Mg Tablet PO Q4H PRN Mild Pain (1-3) or Fever Al Hydrox/Mg Hydrox/Simethicone 30 ml 11/23/22 05:49 Mag Hydrox/Al Hydrox/Simeth 30 Ml Udc PO QID PRN Dyspepsia Aspirin 81 mg 11/23/22 09:00 Aspirin 81 Mg Enteric Tablet PO DAILY JEAN-PIERRE
[2022-11-27] MEDS: EPOETIN ALFA-EPBX 10,000 UNITS/ML VIAL 10000 UNITS SUB-Q (13:36)
--- NOTE | 2022-11-27 14:07 | PCOTNOTE ---
Attempted occupational therapy evaluation, pt refused at this time. Following.
--- NOTE | 2022-11-27 14:08 | PC.NURSE ---
Pt has been sleeping today. Pt has been compliant with turning. Pt refused to eat lunch. Pt has been educated on the importance of why he should eat lunch. Pt denies wanting to eat. Pt continues to be very tired. Pt had BM today that was loose. Pt denies any pain. Pt has been unable to participate or contribute in plan of care. Will continue to monitor pt.
[2022-11-27 16:55] LABS: Glucose Point of Care 115 mg/dl (65-105)
--- NOTE | 2022-11-27 17:10 | PM.IMPN ---
Progress Note: A&P Assessment and Plan (1) Stercoral colitis: Code(s): K52.89 - Other specified noninfective gastroenteritis and colitis Status: Acute (2) Acute UTI: Code(s): N39.0 - Urinary tract infection, site not specified Status: Acute (3) Acute on chronic renal failure: Code(s): N17.9 - Acute kidney failure, unspecified; N18.9 - Chronic kidney disease, unspecified Status: Acute (4) Hypertension: Code(s): I10 - Essential (primary) hypertension Status: Acute (5) Anemia: Onset Date: ~08/2022 Qualifiers: Qualified Code(s): D50.0 - Iron deficiency anemia secondary to blood loss (chronic) Code(s): D64.9 - Anemia, unspecified Status: Acute (6) Dehydration: Code(s): E86.0 - Dehydration Status: Acute (7) Congestive heart failure: Code(s): I50.9 - Heart failure, unspecified Status: Acute (8) Dementia: Code(s): F03.90 - Unspecified dementia, unspecified severity, without behavioral disturbance, psychotic disturbance, mood disturbance, and anxiety Status: Acute Plan Patient confusion poor historian. Reports no complaints. Except for abdominal discomfort. Denies any nausea vomiting. Few red spots visible on his young. He was dropped off by his family in the ER had been able to be released. His hemoglobin was stable on admission however dropped down to 5. Recheck ensure came back same. Emergently transfused PRBC. Having issues with IV access. General surgery placed left subclavian line. Has underlying CKD stage 4. Mostly at baseline level. UTI was noted has started on ceftriaxone IV. He is noted to have bacteremia with Chrissie in the past which was treated successfully. He CT abdomen and pelvis showed findings consistent with stercoral colitis. With fecal impaction and saccular infrarenal abdominal aortic aneurysm with interval enlargement. Repeat CT was obtained since H&H abruptly dropped to 5 to rule out any retroperitoneal bleed are at aortic leak. This was negative. I suspect he had GI bleed and hence he has been started on Protonix drip. GI consulted. Eventually had eGD with findings of hiatal hernia and mild gastritis. Colonoscopy with diverticulosis no signs of bleeding. Protonix drip. And change to oral Protonix. Renal failure related uremic bleeding is another possibility as well. May try DDAVP if H&H still continues to decline. Continue to monitor H&H for now. Metabolic acidosis non-anion gap likely related underlying renal failure. On bicarb drip on 75 cc an hour which has now resolved. Will stop bicarb drip. As he is getting hypokalemic. Encourage oral intake now Hold aspirin Stercoral colitis will add Flagyl. Already on ceftriaxone with switched to ertapenem Urine culture with Klebsiella pneumoniae. ESBL switched to meropenem and now will switch to ertapenem finish 7 day course Replace potassium Subjective Date/time seen: 11/27/22 17:10 Interval history: Patient continues to remain confused. Hemoglobin is stable at 7. Acidosis has resolved however noted to be hypokalemic. Remains on 2 L oxygen Review of Systems Review of Systems: All systems reviewed & are unremarkable except as noted in HPI and below Exam Narrative: General physical exam: patient feels tired and fatigued, lying in bed, no acute distress remains confused Head/eyes: Atraumatic, EOMI, PERRLA ENT: +dry mucous membranes, nasal passages clear Neck: Supple, full range of motion, trachea midline CVS: S1 + S2, regular rate and rhythm, +2/6 systolic ejection murmur Respiratory: Bilaterally fair air entry in both lung perez, mild B/L crackles, symmetric chest expansion, no distress Abdomen: Soft, + mild lower abdominal tenderness on palpation, bowel sounds +ve, no organomegaly Extremities: No clubbing, no cyanosis, no edema, no calf tenderness Musculoskeletal: Moves all, adequate range of motion, no muscle spasms
[2022-11-27] MEDS: ERTAPENEM SODIUM 0.5 GM in SODIUM CHLORIDE 0.9% IV 50 ML IVPB (17:38)
[2022-11-27 18:03] LABS: Potassium 3.1 mmol/L (3.4-5.0)
[2022-11-27] MEDS: ESCITALOPRAM OXALATE 10 MG TABLET PO (21:36)
[2022-11-27] MEDS: TAMSULOSIN HCL 0.4 MG CAPSULE PO (21:37)
[2022-11-27] MEDS: PRAVASTATIN SODIUM 20 MG TABLET 40 MG PO (21:37)
[2022-11-28] VITALS (19 sets, daily range): BP systolic 106–156; BP diastolic 57–83; PULSE 58–88; RESP 14–20; TEMP 35.6–36.6; O2SAT 97–100; BMI 25.6
[2022-11-28] MEDS: CENTRAL LINE FLUSH 10 ML IV PUSH ×3 (05:49→21:23)
[2022-11-28 05:53] LABS: Basophils Percent Auto 0.6 % (0.2-1.2); Eosinophils Absolute Auto 0.3 K/mm3 (0-0.3); Eosinophils Percent Auto 4.6 % (0-4.4); Hematocrit 21.5 % (42.0-52.0); Immature Granulocyte Absolute 0.03 K/mm3 (0.00-0.031); Immature Granulocyte Percent A 0.6 % (0-0.5); Lymphocytes Absolute Auto 0.94 K/mm3 (0.9-3.2); Lymphocytes Percent Auto 17.4 % (18.3-44.2); Mean Corpuscular HGB Conc 32.1 g/dl (32-36); Mean Corpuscular Hemoglobin 29.4 pg (26-34); Mean Corpuscular Volume 91.5 fl (80-100); Mean Platelet Volume 11.1 fl (7.4-10.4); Monocytes Absolute Auto 0.8 K/mm3 (0.1-0.6); Monocytes Percent Auto 14.1 % (2.6-8.5); Neutrophils Absolute Auto 3.4 K/mm3 (1.3-6.7); Neutrophils Percent Auto 62.7 % (45.5-73.1); Platelet Count Result 116 k/mm3 (150-375); Red Blood Count 2.35 M/mm3 (4.6-6.20); Red Cell Distribution Width 16.4 % (11.5-14.5); White Blood Count 5.4 K/mm3 (4.5-10.0)
[2022-11-28 06:02] LABS: Hemoglobin 6.9 g/dL (14.0-18.0)
[2022-11-28 06:04] LABS: Alanine Aminotransferase 17 U/L (6-50); Albumin Level 2.2 g/dL (3.5-5.1); Alkaline Phosphatase 52 U/L (38-126); Anion Gap 4 mmol/L (8-16); Aspartate Amino Transferase 21 U/L (17-59); Bilirubin,Total 0.5 mg/dL (0.2-1.3); Blood Urea Nitrogen 54 mg/dL (9-20); Calcium 7.4 mg/dL (8.4-10.2); Carbon Dioxide 22 mmol/L (22-30); Chloride 108 mmol/L (98-107); Estimated CRCL calculation 16 ml/min; Estimated Glomerular Filt Rate 18; Glucose 96 mg/dL (65-110); Magnesium 1.9 mg/dL (1.6-2.3); Potassium 3.1 mmol/L (3.4-5.0); Sodium 134 mmol/L (137-145)
--- NOTE | 2022-11-28 09:14 | PM.IMPN ---
Progress Note: A&P Assessment and Plan (1) Stercoral colitis: Code(s): K52.89 - Other specified noninfective gastroenteritis and colitis Status: Acute (2) Acute UTI: Code(s): N39.0 - Urinary tract infection, site not specified Status: Acute (3) Acute on chronic renal failure: Code(s): N17.9 - Acute kidney failure, unspecified; N18.9 - Chronic kidney disease, unspecified Status: Acute (4) Hypertension: Code(s): I10 - Essential (primary) hypertension Status: Acute (5) Anemia: Onset Date: ~08/2022 Qualifiers: Qualified Code(s): D50.0 - Iron deficiency anemia secondary to blood loss (chronic) Code(s): D64.9 - Anemia, unspecified Status: Acute (6) Dehydration: Code(s): E86.0 - Dehydration Status: Acute (7) Congestive heart failure: Code(s): I50.9 - Heart failure, unspecified Status: Acute (8) Dementia: Code(s): F03.90 - Unspecified dementia, unspecified severity, without behavioral disturbance, psychotic disturbance, mood disturbance, and anxiety Status: Acute Plan Patient confusion poor historian. Reports no complaints. Except for abdominal discomfort. Denies any nausea vomiting. Few red spots visible on his young. He was dropped off by his family in the ER had been able to be released. His hemoglobin was stable on admission however dropped down to 5. Recheck ensure came back same. Emergently transfused PRBC. Having issues with IV access. General surgery placed left subclavian line. Has underlying CKD stage 4. Mostly at baseline level. UTI was noted has started on ceftriaxone IV. He is noted to have bacteremia with Chrissie in the past which was treated successfully. Urine culture with Klebsiella pneumoniae. ESBL switched to meropenem and now will switch to ertapenem finish 7 day course, last dose will be on SaturdayNovember [address] abdomen and pelvis showed findings consistent with stercoral colitis. With fecal impaction saccular infrarenal abdominal aortic aneurysm with interval enlargement. Repeat CT was obtained since H&H abruptly dropped to 5 to rule out any retroperitoneal bleed are at aortic leak. This was negative. Profound anemia, GI bleeding versus chronic renal failure suspecting GI bleed and hence he has been started on Protonix drip. GI consulted. Eventually had eGD with findings of hiatal hernia and mild gastritis. Colonoscopy with diverticulosis no signs of bleeding. Protonix drip. And change to oral Protonix. Ferritin within normal limits 2 PRBC 11/28 Renal failure stage IV Stable Metabolic acidosis non-anion gap likely related underlying renal failure. On bicarb drip on 75 cc an hour which has now resolved. stop bicarb drip. hypokalemic. Encourage oral intake now Replace potassium Hold aspirin Stercoral colitis will add Flagyl. Already on ceftriaxone with switched to ertapenem Subjective Date/time seen: 11/28/22 09:14 Interval history: Patient continues to remain confused, able to answer questions, not oriented x3. Hemoglobin 6.9 Exam Narrative: General physical exam: patient feels tired and fatigued, lying in bed, no acute distress remains confused Head/eyes: Atraumatic, EOMI, PERRLA ENT: +dry mucous membranes, nasal passages clear Neck: Supple, full range of motion, trachea midline CVS: S1 + S2, regular rate and rhythm, +2/6 systolic ejection murmur Respiratory: Bilaterally fair air entry in both lung perez, mild B/L crackles, symmetric chest expansion, no distress Abdomen: Soft, + mild lower abdominal tenderness on palpation, bowel sounds +ve, no organomegaly Extremities: No clubbing, no cyanosis, no edema, no calf tenderness Musculoskeletal: Moves all, adequate range of motion, no muscle spasms Skin: Warm, dry, no jaundice, no cyanosis Neurological: Awake, alert, cranial nerves II-XII intact, no focal neurological defic
[2022-11-28] MEDS: EMPAGLIFLOZIN 10 MG TABLET PO (09:32)
[2022-11-28] MEDS: polyethylene glycoL 3350 17 GM POWD.PACK PO (09:32)
[2022-11-28] MEDS: METOPROLOL TARTRATE 25 MG TABLET PO ×2 (09:32→21:24)
[2022-11-28] MEDS: PANTOPRAZOLE 40 MG TABLET PO (09:32)
[2022-11-28] MEDS: FINASTERIDE 5 MG TABLET PO (09:32)
[2022-11-28] MEDS: FERROUS SULFATE 325 MG TABLET DR BY MOUTH (09:32)
[2022-11-28] MEDS: POTASSIUM CHLORIDE 20 MEQ PACKET (FOR LIQUID) 40 MEQ PO (09:41)
[2022-11-28] MEDS: POTASSIUM CHLORIDE 20 MEQ ER TABLET PO (09:51)
[2022-11-28] MEDS: SODIUM CHLORIDE 0.9% IV 250 ML 30 ML IV CONT (11:43)
--- NOTE | 2022-11-28 13:14 | PCPTNOTE ---
Attempted PT evaluation, Pt refused to participate. RN aware. Will contact hospitalist.
[2022-11-28] MEDS: TUBING, BLOOD PLUM PUMP TUBING 1 EACH XX (13:16)
--- NOTE | 2022-11-28 13:39 | PM.PNNEP ---
Progress Note: A&P Assessment and Plan (1) ANA CRISTINA (acute kidney injury): Code(s): N17.9 - Acute kidney failure, unspecified Status: Acute Assessment and Plan: renal function worse in general but stable since admission suspect multifactorial: anemia infection (UTI) prerenal factors (?) element of disease progression (?) evaluation to date imaging to date (CT of abdomen x 2) without obstruction UA/urine cx c/w with infection urine electrolytes non prerenal CPK low follow trend of repeat labs and UOP (2) Chronic kidney disease, stage IV (severe): Code(s): N18.4 - Chronic kidney disease, stage 4 (severe) Status: Chronic Assessment and Plan: baseline creatinine runs around 2.6 - 2.8mg/dl presumably due to age, CHF, vascular disease, recurrent infections perhaps current creatinine is his new baseline(?) (3) Metabolic acidosis: Code(s): E87.20 - Acidosis, unspecified Status: Chronic Assessment and Plan: improving/resolved appears to be a chronic issue (from review of previous labs) likely due to acute and chronic renal failure was on oral sodium bicarbonate as outpatient off bicarb fluids lactic acid and beta hydroxybutyrate negative (4) Acute UTI: Code(s): N39.0 - Urinary tract infection, site not specified Status: Acute Assessment and Plan: admission UA suggestive urine culture with Klebsiella on antibiotics (5) Stercoral colitis: Code(s): K52.89 - Other specified noninfective gastroenteritis and colitis Status: Acute Assessment and Plan: as noted by admission imaging on antibiotics as well (6) Anemia: Onset Date: ~08/2022 Qualifiers: Qualified Code(s): D50.0 - Iron deficiency anemia secondary to blood loss (chronic) Code(s): D64.9 - Anemia, unspecified Status: Acute Assessment and Plan: related to CKD versus GI loss versus both(?) Gastroenterolgy following EGD and colonoscopy (on 11/26/22) results noted CT of abdomen/pelvis x 2 noted dose with Epogen WHILE HOSPITALIZED PRBC transfusion per protocol follow trend of H/H (7) Hypertension: Code(s): I10 - Essential (primary) hypertension Status: Acute Assessment and Plan: reasonable control follow trend of hemodynamics Will continue to follow. Subjective Date/time seen: 11/28/22 13:39 Interval history: Follow-up for acute kidney injury/acute renal failure on chronic kidney disease and metabolic acidosis. Appears about the same; still with confusion but in no apparent distress; PRBC transfusion today due to low H/H; no other acute issues/events overnight or earlier this AM. Exam Narrative: General: elderly male in NAD Heart: normal S1 and S2; no rub Lungs: coarse and decreased at bases Abdomen: soft, nontender, positive bowel sounds Extremities: no cyanosis or clubbing; no edema Skin: warm and intact Objective Data Vital Signs Vital Signs: Vital Signs Temp Pulse Resp BP Pulse Ox O2 Del Method O2 Flow Rate 11/28/22 13:24 97.3 F L 83 16 118/69 97 11/28/22 12:24 97.2 F L 71 18 106/69 100 11/28/22 12:00 96.0 F L 58 L 14 119/65 99 11/28/22 12:09 96.6 F L 88 18 115/71 97 11/28/22 09:32 64 11/28/22 08:00 97.4 F L 62 14 156/70 H 100 11/28/22 04:00 97.4 F L 64 16 145/74 H 99 11/27/22 23:24 99 Nasal Cannula 2 11/28/22 00:00 97.0 F L 61 18 151/69 H 99 11/27/22 20:00 96.7 F L 58 L 18 154/73 H 100 11/27/22 21:36 80 11/27/22 20:00 58 L 16 100 Nasal Cannula 2 11/27/22 16:00 98.1 F 58 L 16 157/7 H 100 Intake/Output Intake/Output: Intake & Output 11/25/22 11/26/22 11/27/22 11/28/22 23:59 23:59 23:59 23:59 Intake Total 1820 2310 2238 866 Output Total 900 750 750 800 Balance 920 1560 1488 66 Meds/Results Medications: Acti
--- NOTE | 2022-11-28 13:39 | P.PNNP_ITS ---
Progress Note: A&P Assessment and Plan (1) ANA CRISTINA (acute kidney injury): Code(s): N17.9 - Acute kidney failure, unspecified Status: Acute Assessment and Plan: * renal function worse in general but stable since admission * suspect multifactorial: * anemia * infection (UTI) * prerenal factors (?) * element of disease progression (?) * evaluation to date * imaging to date (CT of abdomen x 2) without obstruction * UA/urine cx c/w with infection * urine electrolytes non prerenal * CPK low * follow trend of repeat labs and UOP (2) Chronic kidney disease, stage IV (severe): Code(s): N18.4 - Chronic kidney disease, stage 4 (severe) Status: Chronic Assessment and Plan: * baseline creatinine runs around 2.6 - 2.8mg/dl * presumably due to age, CHF, vascular disease, recurrent infections * perhaps current creatinine is his new baseline(?) (3) Metabolic acidosis: Code(s): E87.20 - Acidosis, unspecified Status: Chronic Assessment and Plan: * improving/resolved * appears to be a chronic issue (from review of previous labs) * likely due to acute and chronic renal failure * was on oral sodium bicarbonate as outpatient * off bicarb fluids * lactic acid and beta hydroxybutyrate negative (4) Acute UTI: Code(s): N39.0 - Urinary tract infection, site not specified Status: Acute Assessment and Plan: * admission UA suggestive * urine culture with Klebsiella * on antibiotics (5) Stercoral colitis: Code(s): K52.89 - Other specified noninfective gastroenteritis and colitis Status: Acute Assessment and Plan: * as noted by admission imaging * on antibiotics as well (6) Anemia: Onset Date: ~08/2022 Qualifiers: Qualified Code(s): D50.0 - Iron deficiency anemia secondary to blood loss (chronic) Code(s): D64.9 - Anemia, unspecified Status: Acute Assessment and Plan: * related to CKD versus GI loss versus both(?) * Gastroenterolgy following * EGD and colonoscopy (on 11/26/22) results noted * CT of abdomen/pelvis x 2 noted * dose with Epogen WHILE HOSPITALIZED * PRBC transfusion per protocol * follow trend of H/H (7) Hypertension: Code(s): I10 - Essential (primary) hypertension Status: Acute Assessment and Plan: * reasonable control * follow trend of hemodynamics Will continue to follow. Subjective Date/time seen: 11/28/22 13:39 Interval history: Follow-up for acute kidney injury/acute renal failure on chronic kidney disease and metabolic acidosis. Appears about the same; still with confusion but in no apparent distress; PRBC transfusion today due to low H/H; no other acute issues/events overnight or earlier this AM. Exam Narrative: General: elderly male in NAD Heart: normal S1 and S2; no rub Lungs: coarse and decreased at bases Abdomen: soft, nontender, positive bowel sounds Extremities: no cyanosis or clubbing; no edema Skin: warm and intact Objective Data Vital Signs Vital Signs: Vital Signs Temp Pulse Resp BP Pulse Ox O2 Del Method O2 Flow Rate 11/28/22 13:24 97.3 F L 83 16 118/69 97 11/28/22 12:24 97.2 F L 71 18 106/69 100 11/28/22 12:00 96.0 F L 58 L 14 119/65 99
[2022-11-28] MEDS: ERTAPENEM SODIUM 0.5 GM in SODIUM CHLORIDE 0.9% IV 50 ML IVPB (17:06)
[2022-11-28 19:30] LABS: Haptoglobin 159 mg/dL (43-212)
[2022-11-28] MEDS: PRAVASTATIN SODIUM 20 MG TABLET 40 MG PO (21:24)
[2022-11-28] MEDS: TAMSULOSIN HCL 0.4 MG CAPSULE PO (21:24)
[2022-11-28] MEDS: ESCITALOPRAM OXALATE 10 MG TABLET PO (21:24)
[2022-11-29] VITALS (9 sets, daily range): BP systolic 147–173; BP diastolic 74–98; PULSE 59–65; RESP 18–20; TEMP 35.6–36.6; O2SAT 97–100
[2022-11-29] MEDS: CENTRAL LINE FLUSH 10 ML IV PUSH ×3 (06:33→21:34)
[2022-11-29 07:41] LABS: Glucose Point of Care 103 mg/dl (65-105)
[2022-11-29] MEDS: EPOETIN ALFA-EPBX 10,000 UNITS/ML VIAL 10000 UNITS SUB-Q (09:13)
[2022-11-29] MEDS: FERROUS SULFATE 325 MG TABLET DR BY MOUTH (09:15)
[2022-11-29] MEDS: EMPAGLIFLOZIN 10 MG TABLET PO (09:15)
[2022-11-29] MEDS: FINASTERIDE 5 MG TABLET PO (09:15)
[2022-11-29] MEDS: PANTOPRAZOLE 40 MG TABLET PO (09:16)
[2022-11-29] MEDS: METOPROLOL TARTRATE 25 MG TABLET PO ×2 (09:16→21:34)
[2022-11-29 11:46] LABS: Glucose Point of Care 129 mg/dl (65-105)
--- NOTE | 2022-11-29 13:35 | PM.PNNEP ---
Progress Note: A&P Assessment and Plan (1) ANA CRISTINA (acute kidney injury): Code(s): N17.9 - Acute kidney failure, unspecified Status: Acute Assessment and Plan: renal function worse in general but stable since admission suspect multifactorial: anemia infection (UTI) prerenal factors (?) element of disease progression (?) evaluation to date imaging to date (CT of abdomen x 2) without obstruction UA/urine cx c/w with infection urine electrolytes non prerenal CPK low follow trend of repeat labs and UOP (2) Chronic kidney disease, stage IV (severe): Code(s): N18.4 - Chronic kidney disease, stage 4 (severe) Status: Chronic Assessment and Plan: baseline creatinine runs around 2.6 - 2.8mg/dl presumably due to age, CHF, vascular disease, recurrent infections perhaps current creatinine is his new baseline(?) (3) Metabolic acidosis: Code(s): E87.20 - Acidosis, unspecified Status: Chronic Assessment and Plan: improving/resolved appears to be a chronic issue (from review of previous labs) likely due to acute and chronic renal failure was on oral sodium bicarbonate as outpatient off bicarb fluids lactic acid and beta hydroxybutyrate negative (4) Acute UTI: Code(s): N39.0 - Urinary tract infection, site not specified Status: Acute Assessment and Plan: admission UA suggestive urine culture with Klebsiella on antibiotics (5) Stercoral colitis: Code(s): K52.89 - Other specified noninfective gastroenteritis and colitis Status: Acute Assessment and Plan: as noted by admission imaging on antibiotics as well (6) Anemia: Onset Date: ~08/2022 Qualifiers: Qualified Code(s): D50.0 - Iron deficiency anemia secondary to blood loss (chronic) Code(s): D64.9 - Anemia, unspecified Status: Acute Assessment and Plan: related to CKD versus GI loss versus both(?) Gastroenterolgy following EGD and colonoscopy (on 11/26/22) results noted CT of abdomen/pelvis x 2 noted dose with Epogen WHILE HOSPITALIZED PRBC transfusion per protocol follow trend of H/H (7) Hypertension: Code(s): I10 - Essential (primary) hypertension Status: Acute Assessment and Plan: running a bit high on metoprolol; may need another agent (i.e. amlodipine) follow trend of hemodynamics Will continue to follow. Subjective Date/time seen: 11/29/22 13:35 Interval history: Follow-up for acute kidney injury/acute renal failure on chronic kidney disease and metabolic acidosis. Tolerated PRBC transfusion yesterday without any issues or problems; mentation seems stable and only major complaint is that of generalized weakness; no apparent distress noted. Exam Narrative: General: elderly male in NAD Heart: normal S1 and S2; no rub Lungs: coarse and decreased at bases Abdomen: soft, nontender, positive bowel sounds Extremities: no cyanosis or clubbing; no edema Skin: no nodules Objective Data Vital Signs Vital Signs: Vital Signs Temp Pulse Resp BP Pulse Ox O2 Del Method O2 Flow Rate 11/29/22 12:00 97.5 F L 59 L 18 162/98 H 99 11/29/22 12:20 98 Room Air 11/29/22 09:15 97 Nasal Cannula 1 11/29/22 09:16 63 11/29/22 07:51 97.6 F 65 18 152/80 H 97 11/29/22 04:00 97.9 F 65 20 157/90 H 98 11/29/22 00:00 97.6 F 61 20 147/74 H 100 11/28/22 20:00 61 20 100 Nasal Cannula 2 11/28/22 20:00 98 F 63 20 150/72 H 100 11/28/22 21:28 97.7 F 61 20 155/83 H 100 11/28/22 21:24 62 11/28/22 20:24 62 97 Nasal Cannula 2 11/28/22 19:08 97.5 F L 63 18 146/65 H 100 11/28/22 18:08 97 F L 62 18 143/69 H 99 11/28/22 17:49 96.8 F L 62 18 142/64 H 100 11/28/22 17:48 63 14 99 Nasal Cannula 2 Intake/Output Intake/Output: Intake & Output
--- NOTE | 2022-11-29 13:35 | P.PNNP_ITS ---
Progress Note: A&P Assessment and Plan (1) ANA CRISTINA (acute kidney injury): Code(s): N17.9 - Acute kidney failure, unspecified Status: Acute Assessment and Plan: * renal function worse in general but stable since admission * suspect multifactorial: * anemia * infection (UTI) * prerenal factors (?) * element of disease progression (?) * evaluation to date * imaging to date (CT of abdomen x 2) without obstruction * UA/urine cx c/w with infection * urine electrolytes non prerenal * CPK low * follow trend of repeat labs and UOP (2) Chronic kidney disease, stage IV (severe): Code(s): N18.4 - Chronic kidney disease, stage 4 (severe) Status: Chronic Assessment and Plan: * baseline creatinine runs around 2.6 - 2.8mg/dl * presumably due to age, CHF, vascular disease, recurrent infections * perhaps current creatinine is his new baseline(?) (3) Metabolic acidosis: Code(s): E87.20 - Acidosis, unspecified Status: Chronic Assessment and Plan: * improving/resolved * appears to be a chronic issue (from review of previous labs) * likely due to acute and chronic renal failure * was on oral sodium bicarbonate as outpatient * off bicarb fluids * lactic acid and beta hydroxybutyrate negative (4) Acute UTI: Code(s): N39.0 - Urinary tract infection, site not specified Status: Acute Assessment and Plan: * admission UA suggestive * urine culture with Klebsiella * on antibiotics (5) Stercoral colitis: Code(s): K52.89 - Other specified noninfective gastroenteritis and colitis Status: Acute Assessment and Plan: * as noted by admission imaging * on antibiotics as well (6) Anemia: Onset Date: ~08/2022 Qualifiers: Qualified Code(s): D50.0 - Iron deficiency anemia secondary to blood loss (chronic) Code(s): D64.9 - Anemia, unspecified Status: Acute Assessment and Plan: * related to CKD versus GI loss versus both(?) * Gastroenterolgy following * EGD and colonoscopy (on 11/26/22) results noted * CT of abdomen/pelvis x 2 noted * dose with Epogen WHILE HOSPITALIZED * PRBC transfusion per protocol * follow trend of H/H (7) Hypertension: Code(s): I10 - Essential (primary) hypertension Status: Acute Assessment and Plan: * running a bit high * on metoprolol; may need another agent (i.e. amlodipine) * follow trend of hemodynamics Will continue to follow. Subjective Date/time seen: 11/29/22 13:35 Interval history: Follow-up for acute kidney injury/acute renal failure on chronic kidney disease and metabolic acidosis. Tolerated PRBC transfusion yesterday without any issues or problems; mentation seems stable and only major complaint is that of generalized weakness; no apparent distress noted. Exam Narrative: General: elderly male in NAD Heart: normal S1 and S2; no rub Lungs: coarse and decreased at bases Abdomen: soft, nontender, positive bowel sounds Extremities: no cyanosis or clubbing; no edema Skin: no nodules Objective Data Vital Signs Vital Signs: Vital Signs Temp Pulse Resp BP Pulse Ox O2 Del Method O2 Flow Rate 11/29/22 12:00 97.5 F L 59 L 18 162/98 H 99 09
--- NOTE | 2022-11-29 15:12 | PM.IMPN ---
Progress Note: A&P Assessment and Plan (1) Stercoral colitis: Code(s): K52.89 - Other specified noninfective gastroenteritis and colitis Status: Acute (2) Acute UTI: Code(s): N39.0 - Urinary tract infection, site not specified Status: Acute (3) Acute on chronic renal failure: Code(s): N17.9 - Acute kidney failure, unspecified; N18.9 - Chronic kidney disease, unspecified Status: Acute (4) Hypertension: Code(s): I10 - Essential (primary) hypertension Status: Acute (5) Anemia: Onset Date: ~08/2022 Qualifiers: Qualified Code(s): D50.0 - Iron deficiency anemia secondary to blood loss (chronic) Code(s): D64.9 - Anemia, unspecified Status: Acute (6) Dehydration: Code(s): E86.0 - Dehydration Status: Acute (7) Congestive heart failure: Code(s): I50.9 - Heart failure, unspecified Status: Acute (8) Dementia: Code(s): F03.90 - Unspecified dementia, unspecified severity, without behavioral disturbance, psychotic disturbance, mood disturbance, and anxiety Status: Acute Plan Patient confusion poor historian. Reports no complaints. Except for abdominal discomfort. Denies any nausea vomiting. Few red spots visible on his young. He was dropped off by his family in the ER had been able to be released. His hemoglobin was stable on admission however dropped down to 5. Recheck ensure came back same. Emergently transfused PRBC. Having issues with IV access. General surgery placed left subclavian line. Has underlying CKD stage 4. Mostly at baseline level. UTI was noted has started on ceftriaxone IV. He is noted to have bacteremia with Chrissie in the past which was treated successfully. Urine culture with Klebsiella pneumoniae. ESBL switched to meropenem and now will switch to ertapenem finish 7 day course, last dose will be on SaturdayNovember 30 Continue current antibiotic treatment today He CT abdomen and pelvis showed findings consistent with stercoral colitis. With fecal impaction saccular infrarenal abdominal aortic aneurysm with interval enlargement. Repeat CT was obtained since H&H abruptly dropped to 5 to rule out any retroperitoneal bleed are at aortic leak. This was negative. Profound anemia, GI bleeding versus chronic renal failure suspecting GI bleed and hence he has been started on Protonix drip. GI consulted. Eventually had eGD with findings of hiatal hernia and mild gastritis. Colonoscopy with diverticulosis no signs of bleeding. Protonix drip. And change to oral Protonix. Ferritin within normal limits 2 PRBC 11/28 Renal failure stage IV Stable Metabolic acidosis non-anion gap likely related underlying renal failure. On bicarb drip on 75 cc an hour which has now resolved. stop bicarb drip. hypokalemic. Encourage oral intake now Replace potassium Hold aspirin Stercoral colitis will add Flagyl. Already on ceftriaxone with switched to ertapenem Subjective Date/time seen: 11/29/22 15:12 Interval history: patient feels better today, still has general weakness, denies abdomen pain nausea vomiting diarrhea. Patient is afebrile, blood pressure stable Exam Narrative: General physical exam: patient feels tired and fatigued, lying in bed, no acute distress remains confused Head/eyes: Atraumatic, EOMI, PERRLA ENT: +dry mucous membranes, nasal passages clear Neck: Supple, full range of motion, trachea midline CVS: S1 + S2, regular rate and rhythm, +2/6 systolic ejection murmur Respiratory: Bilaterally fair air entry in both lung perez, mild B/L crackles, symmetric chest expansion, no distress Abdomen: Soft, + mild lower abdominal tenderness on palpation, bowel sounds +ve, no organomegaly Extremities: No clubbing, no cyanosis, no edema, no calf tenderness Musculoskeletal: Moves all, adequate range of motion, no muscle spasms Skin: Warm, dry, no jaundice, no cyan
--- NOTE | 2022-11-29 15:39 | PCOTNOTE ---
Attempted to see pt. for occupational therapy evaluation. Pt. refused to participate at this time. Pt. educated on benefits of participation. Nursing aware.
[2022-11-29] MEDS: ERTAPENEM SODIUM 0.5 GM in SODIUM CHLORIDE 0.9% IV 50 ML IVPB (17:24)
[2022-11-29] MEDS: TAMSULOSIN HCL 0.4 MG CAPSULE PO (21:33)
[2022-11-29] MEDS: PRAVASTATIN SODIUM 20 MG TABLET 40 MG PO (21:33)
[2022-11-29] MEDS: ESCITALOPRAM OXALATE 10 MG TABLET PO (21:34)
[2022-11-30] VITALS: BP 167/86; PULSE 59; RESP 16; TEMP 35.8; O2SAT 97
[2022-11-30 00:35] LABS: Kappa\\Lambda Light Chains 1.15 (0.26-1.65); Lambda Light Chain 99.3 mg/L (5.7-26.3)
[2022-11-30 04:00] VITALS: BP 180/89; PULSE 62; RESP 18; TEMP 35.9; O2SAT 97
[2022-11-30] MEDS: CENTRAL LINE FLUSH 10 ML IV PUSH ×2 (05:20→13:17)
[2022-11-30 06:40] LABS: Basophils Percent Auto 0.7 % (0.2-1.2); Eosinophils Absolute Auto 0.2 K/mm3 (0-0.3); Eosinophils Percent Auto 4.1 % (0-4.4); Hematocrit 32.7 % (42.0-52.0); Hemoglobin 10.8 g/dL (14.0-18.0); Immature Granulocyte Absolute 0.09 K/mm3 (0.00-0.031); Immature Granulocyte Percent A 1.6 % (0-0.5); Lymphocytes Absolute Auto 0.82 K/mm3 (0.9-3.2); Lymphocytes Percent Auto 14.5 % (18.3-44.2); Mean Corpuscular Hemoglobin 29.8 pg (26-34); Mean Corpuscular Volume 90.3 fl (80-100); Mean Platelet Volume 10.9 fl (7.4-10.4); Monocytes Absolute Auto 0.9 K/mm3 (0.1-0.6); Monocytes Percent Auto 15.6 % (2.6-8.5); Neutrophils Absolute Auto 3.6 K/mm3 (1.3-6.7); Neutrophils Percent Auto 63.5 % (45.5-73.1); Platelet Count Result 134 k/mm3 (150-375); Red Blood Count 3.62 M/mm3 (4.6-6.20); Red Cell Distribution Width 15.7 % (11.5-14.5); White Blood Count 5.7 K/mm3 (4.5-10.0)
[2022-11-30 06:43] LABS: Alanine Aminotransferase 19 U/L (6-50); Albumin Level 2.2 g/dL (3.5-5.1); Alkaline Phosphatase 61 U/L (38-126); Anion Gap 3 mmol/L (8-16); Aspartate Amino Transferase 22 U/L (17-59); Bilirubin,Total 0.5 mg/dL (0.2-1.3); Blood Urea Nitrogen 43 mg/dL (9-20); Carbon Dioxide 23 mmol/L (22-30); Chloride 106 mmol/L (98-107); Estimated CRCL calculation 17 ml/min; Estimated Glomerular Filt Rate 19; Glucose 81 mg/dL (65-110); Potassium 3.9 mmol/L (3.4-5.0); Sodium 132 mmol/L (137-145)
[2022-11-30 07:41] LABS: Glucose Point of Care 85 mg/dl (65-105)
[2022-11-30 08:00] VITALS: BP 175/84; PULSE 59; RESP 16; TEMP 36.2; O2SAT 97
--- NOTE | 2022-11-30 08:21 | PCOTNOTE ---
Pt. repeatedly refused therapy services. Spoke with hospitalist Dr. Camp, who agreed to cancelation of therapy orders. Re-order if appropriate and pt. willing to participate.
[2022-11-30 08:30] VITALS: PULSE 72
[2022-11-30] MEDS: METOPROLOL TARTRATE 25 MG TABLET PO (08:30)
[2022-11-30] MEDS: FERROUS SULFATE 325 MG TABLET DR BY MOUTH (08:30)
[2022-11-30] MEDS: PANTOPRAZOLE 40 MG TABLET PO (08:34)
[2022-11-30] MEDS: FINASTERIDE 5 MG TABLET PO (08:34)
[2022-11-30] MEDS: EMPAGLIFLOZIN 10 MG TABLET PO (08:34)
--- NOTE | 2022-11-30 09:00 | PM.IMPN ---
Progress Note: A&P Assessment and Plan (1) Stercoral colitis: Code(s): K52.89 - Other specified noninfective gastroenteritis and colitis Status: Acute (2) Acute UTI: Code(s): N39.0 - Urinary tract infection, site not specified Status: Acute (3) Acute on chronic renal failure: Code(s): N17.9 - Acute kidney failure, unspecified; N18.9 - Chronic kidney disease, unspecified Status: Acute (4) Hypertension: Code(s): I10 - Essential (primary) hypertension Status: Acute (5) Anemia: Onset Date: ~08/2022 Qualifiers: Qualified Code(s): D50.0 - Iron deficiency anemia secondary to blood loss (chronic) Code(s): D64.9 - Anemia, unspecified Status: Acute (6) Dehydration: Code(s): E86.0 - Dehydration Status: Acute (7) Congestive heart failure: Code(s): I50.9 - Heart failure, unspecified Status: Acute (8) Dementia: Code(s): F03.90 - Unspecified dementia, unspecified severity, without behavioral disturbance, psychotic disturbance, mood disturbance, and anxiety Status: Acute Plan Patient confusion poor historian. Reports no complaints. Except for abdominal discomfort. Denies any nausea vomiting. Few red spots visible on his young. He was dropped off by his family in the ER had been able to be released. His hemoglobin was stable on admission however dropped down to 5. Recheck ensure came back same. Emergently transfused PRBC. Having issues with IV access. General surgery placed left subclavian line. Has underlying CKD stage 4. Mostly at baseline level. UTI was noted has started on ceftriaxone IV. He is noted to have bacteremia with Chrissie in the past which was treated successfully. Urine culture with Klebsiella pneumoniae. ESBL switched to meropenem and now will switch to ertapenem finish 7 day course, last dose on SaturdayNovember 30 Continue current antibiotic treatment today He CT abdomen and pelvis showed findings consistent with stercoral colitis. With fecal impaction saccular infrarenal abdominal aortic aneurysm with interval enlargement. Repeat CT was obtained since H&H abruptly dropped to 5 to rule out any retroperitoneal bleed are at aortic leak. This was negative. Profound anemia, GI bleeding versus chronic renal failure suspecting GI bleed and hence he has been started on Protonix drip. GI consulted. Eventually had eGD with findings of hiatal hernia and mild gastritis. Colonoscopy with diverticulosis no signs of bleeding. Protonix drip. And change to oral Protonix. Ferritin within normal limits 2 PRBC 11/28 hb 10.8 today Renal failure stage IV Stable Metabolic acidosis non-anion gap likely related underlying renal failure. On bicarb drip on 75 cc an hour which has now resolved. stop bicarb drip. hypokalemic. Encourage oral intake now Replace potassium corrected Stercoral colitis will add Flagyl. Already on ceftriaxone with switched to ertapenem Subjective Date/time seen: 11/30/22 09:00 Interval history: Patient is feeling better today, has no complaints, patient alert, not oriented, close to baseline Exam Narrative: General physical exam: patient feels tired and fatigued, lying in bed, no acute distress remains confused Head/eyes: Atraumatic, EOMI, PERRLA ENT: +dry mucous membranes, nasal passages clear Neck: Supple, full range of motion, trachea midline CVS: S1 + S2, regular rate and rhythm, +2/6 systolic ejection murmur Respiratory: Bilaterally fair air entry in both lung perez, mild B/L crackles, symmetric chest expansion, no distress Abdomen: Soft, + mild lower abdominal tenderness on palpation, bowel sounds +ve, no organomegaly Extremities: No clubbing, no cyanosis, no edema, no calf tenderness Musculoskeletal: Moves all, adequate range of motion, no muscle spasms Skin: Warm, dry, no jaundice, no cyanosis Neurological: Awake, alert, cranial
--- NOTE | 2022-11-30 10:40 | P.PNNP_ITS ---
Progress Note: A&P Assessment and Plan (1) ANA CRISTINA (acute kidney injury): Code(s): N17.9 - Acute kidney failure, unspecified Status: Acute Assessment and Plan: * renal function worse in general but stable since admission * suspect multifactorial: * anemia * infection (UTI) * prerenal factors (?) * element of disease progression (?) * evaluation to date * imaging to date (CT of abdomen x 2) without obstruction * UA/urine cx c/w with infection * urine electrolytes non prerenal * CPK low * follow trend of repeat labs and UOP (2) Chronic kidney disease, stage IV (severe): Code(s): N18.4 - Chronic kidney disease, stage 4 (severe) Status: Chronic Assessment and Plan: * baseline creatinine runs around 2.6 - 2.8mg/dl * presumably due to age, CHF, vascular disease, recurrent infections * perhaps current creatinine is his new baseline(?) (3) Metabolic acidosis: Code(s): E87.20 - Acidosis, unspecified Status: Chronic Assessment and Plan: * improving/resolved * appears to be a chronic issue (from review of previous labs) * likely due to acute and chronic renal failure * was on oral sodium bicarbonate as outpatient * off bicarb fluids * lactic acid and beta hydroxybutyrate negative (4) Acute UTI: Code(s): N39.0 - Urinary tract infection, site not specified Status: Acute Assessment and Plan: * admission UA suggestive * urine culture with Klebsiella * on antibiotics (5) Stercoral colitis: Code(s): K52.89 - Other specified noninfective gastroenteritis and colitis Status: Acute Assessment and Plan: * as noted by admission imaging * on antibiotics as well (6) Anemia: Onset Date: ~08/2022 Qualifiers: Qualified Code(s): D50.0 - Iron deficiency anemia secondary to blood loss (chronic) Code(s): D64.9 - Anemia, unspecified Status: Acute Assessment and Plan: * related to CKD versus GI loss versus both(?) * Gastroenterolgy following * EGD and colonoscopy (on 11/26/22) results noted * CT of abdomen/pelvis x 2 noted * dose with Epogen WHILE HOSPITALIZED * PRBC transfusion per protocol * follow trend of H/H (7) Hypertension: Code(s): I10 - Essential (primary) hypertension Status: Acute Assessment and Plan: * running a bit high * on metoprolol; may need another agent (i.e. amlodipine) * follow trend of hemodynamics Not opposed to discharge from renal perspective if otherwise medically stable. Will continue to follow. Subjective Date/time seen: 11/30/22 10:40 Interval history: Follow-up for acute kidney injury/acute renal failure on chronic kidney disease and metabolic acidosis. Renal function stable if not better and H/H has improved following recent PRBC transfusion; still somewhat confused but no worse in comparison to admission; no issues/events overnight or earlier this morning; no apparent distress voiced. Exam Narrative: General: elderly male in NAD Heart: normal S1 and S2; no rub Lungs: coarse and decreased at bases Abdomen: soft, nontender, positive bowel sounds Extremities: no cyanosis or clubbing; no edema Skin: warm and intact Objective Data Vital Signs Vital Signs: Vital Signs
--- NOTE | 2022-11-30 10:40 | PM.PNNEP ---
Progress Note: A&P Assessment and Plan (1) ANA CRISTINA (acute kidney injury): Code(s): N17.9 - Acute kidney failure, unspecified Status: Acute Assessment and Plan: renal function worse in general but stable since admission suspect multifactorial: anemia infection (UTI) prerenal factors (?) element of disease progression (?) evaluation to date imaging to date (CT of abdomen x 2) without obstruction UA/urine cx c/w with infection urine electrolytes non prerenal CPK low follow trend of repeat labs and UOP (2) Chronic kidney disease, stage IV (severe): Code(s): N18.4 - Chronic kidney disease, stage 4 (severe) Status: Chronic Assessment and Plan: baseline creatinine runs around 2.6 - 2.8mg/dl presumably due to age, CHF, vascular disease, recurrent infections perhaps current creatinine is his new baseline(?) (3) Metabolic acidosis: Code(s): E87.20 - Acidosis, unspecified Status: Chronic Assessment and Plan: improving/resolved appears to be a chronic issue (from review of previous labs) likely due to acute and chronic renal failure was on oral sodium bicarbonate as outpatient off bicarb fluids lactic acid and beta hydroxybutyrate negative (4) Acute UTI: Code(s): N39.0 - Urinary tract infection, site not specified Status: Acute Assessment and Plan: admission UA suggestive urine culture with Klebsiella on antibiotics (5) Stercoral colitis: Code(s): K52.89 - Other specified noninfective gastroenteritis and colitis Status: Acute Assessment and Plan: as noted by admission imaging on antibiotics as well (6) Anemia: Onset Date: ~08/2022 Qualifiers: Qualified Code(s): D50.0 - Iron deficiency anemia secondary to blood loss (chronic) Code(s): D64.9 - Anemia, unspecified Status: Acute Assessment and Plan: related to CKD versus GI loss versus both(?) Gastroenterolgy following EGD and colonoscopy (on 11/26/22) results noted CT of abdomen/pelvis x 2 noted dose with Epogen WHILE HOSPITALIZED PRBC transfusion per protocol follow trend of H/H (7) Hypertension: Code(s): I10 - Essential (primary) hypertension Status: Acute Assessment and Plan: running a bit high on metoprolol; may need another agent (i.e. amlodipine) follow trend of hemodynamics Not opposed to discharge from renal perspective if otherwise medically stable. Will continue to follow. Subjective Date/time seen: 11/30/22 10:40 Interval history: Follow-up for acute kidney injury/acute renal failure on chronic kidney disease and metabolic acidosis. Renal function stable if not better and H/H has improved following recent PRBC transfusion; still somewhat confused but no worse in comparison to admission; no issues/events overnight or earlier this morning; no apparent distress voiced. Exam Narrative: General: elderly male in NAD Heart: normal S1 and S2; no rub Lungs: coarse and decreased at bases Abdomen: soft, nontender, positive bowel sounds Extremities: no cyanosis or clubbing; no edema Skin: warm and intact Objective Data Vital Signs Vital Signs: Vital Signs Temp Pulse Resp BP Pulse Ox O2 Del Method 11/30/22 10:00 97.4 F L 55 L 14 157/77 H 97 11/30/22 08:25 Room Air 11/30/22 08:30 72 11/30/22 08:00 97.2 F L 59 L 16 175/84 H 97 11/30/22 04:00 96.7 F L 62 18 180/89 H 97 11/30/22 00:00 96.4 F L 59 L 16 167/86 H 97 11/29/22 20:00 Room Air 11/29/22 20:00 96.0 F L 61 18 173/90 H 97 11/29/22 15:52 97.5 F L 59 L 18 155/78 H 97 Intake/Output Intake/Output: Intake & Output 11/27/22 11/28/22 11/29/22 11/30/22 23:59 23:59 23:59 23:59 Intake Total 2288 1803 1824 1020 Output Total 750 1500 1000 750 Balance 1538 303 824 270 Meds/Results Medications: Active Medicati
[2022-11-30 11:25] LABS: Glucose Point of Care 104 mg/dl (65-105)
[2022-11-30 12:00] VITALS: BP 157/77; PULSE 55; RESP 14; TEMP 36.3; O2SAT 97
--- NOTE | 2022-11-30 14:23 | PM.DS ---
DS: Admitting Diagnosis Discharge Date 11/30/22 Admitting Diagnosis (1) Stercoral colitis: ?Code(s): K52.89 - Other specified noninfective gastroenteritis and colitis ?Status:?Acute (2) Acute UTI: ?Code(s): N39.0 - Urinary tract infection, site not specified ?Status:?Acute (3) Acute on chronic renal failure: ?Code(s): N17.9 - Acute kidney failure, unspecified; N18.9 - Chronic kidney disease, unspecified ?Status:?Acute (4) Hypertension: ?Code(s): I10 - Essential (primary) hypertension ?Status:?Acute (5) Anemia: ?Onset Date:?~08/2022 ?Qualifiers: ? Qualified Code(s):?D50.0 - Iron deficiency anemia secondary to blood loss (chronic) ?Code(s): D64.9 - Anemia, unspecified ?Status:?Acute (6) Dehydration: ?Code(s): E86.0 - Dehydration ?Status:?Acute (7) Congestive heart failure: ?Code(s): I50.9 - Heart failure, unspecified ?Status:?Acute (8) Dementia: ?Code(s): F03.90 - Unspecified dementia, unspecified severity, without behavioral disturbance, psychotic disturbance, mood disturbance, and anxiety ?Status:?Acute DS: Discharge Diagnosis Discharge Diagnosis (1) Stercoral colitis: Code(s): K52.89 - Other specified noninfective gastroenteritis and colitis Status: Acute (2) Acute UTI: Code(s): N39.0 - Urinary tract infection, site not specified Status: Acute (3) Acute on chronic renal failure: Code(s): N17.9 - Acute kidney failure, unspecified; N18.9 - Chronic kidney disease, unspecified Status: Acute (4) Hypertension: Code(s): I10 - Essential (primary) hypertension Status: Acute (5) Anemia: Onset Date: ~08/2022 Qualifiers: Qualified Code(s): D50.0 - Iron deficiency anemia secondary to blood loss (chronic) Code(s): D64.9 - Anemia, unspecified Status: Acute (6) Dehydration: Code(s): E86.0 - Dehydration Status: Acute (7) Congestive heart failure: Code(s): I50.9 - Heart failure, unspecified Status: Acute (8) Dementia: Code(s): F03.90 - Unspecified dementia, unspecified severity, without behavioral disturbance, psychotic disturbance, mood disturbance, and anxiety Status: Acute DS: Summary Hospital Course Hospital Course: Per H&P, 87 years old white male with chronic medical issues is complaining of nausea and vomiting since yesterday.? He has baseline dementia.? He lives at home.? Family got concerned and sent him to the ER for evaluation via EMS.? He had evidence of emesis in his young on arrival in the ER.? He was given IV fluids and p.r.n. meds for nausea and vomiting.? Workup was done which showed stercoral colitis and UTI.? Antibiotics were started and he is being? placed under observation status for? IV hydration and medical management. The following medical issues have been addressed during hospitalization UTI started on ceftriaxone IV. He is noted to have bacteremia with Chrissie in the past which was treated successfully. Urine culture with Klebsiella pneumoniae. ESBL switched to meropenem and now will switch to ertapenem finish 7 day course, last dose on SaturdayNovember 30 Profound anemia, GI bleeding versus chronic renal failure suspecting GI bleed and hence he has been started on Protonix drip. GI consulted. Eventually had eGD with findings of hiatal hernia and mild gastritis. Colonoscopy with diverticulosis no signs of bleeding. Protonix drip. And change to oral Protonix. Ferritin within normal limits 2 PRBC 11/28 hb 10.8 today Renal failure stage IV Stable Avoid nephrotoxin medication Metabolic acidosis non-anion gap likely related underlying renal failure. On bicarb drip on 75 cc an hour which has now resolved. stop bicarb drip. hypokalemic. Encourage oral intake now Replace potassium corrected Stercoral colitis He CT abdomen and pelvis showed findings cons
[2022-11-30] MEDS: ERTAPENEM SODIUM 0.5 GM in SODIUM CHLORIDE 0.9% IV 50 ML IVPB (16:12)
--- NOTE | 2022-11-30 16:15 | PC.NURSE ---
Addendum entered by Genesis Schwarz RN 11/30/22 17:00: Central line removed tip intact. Pt tolerated well. Pressure dressing and neosporin applied to removal site. Will continue to monitor pt until EMS picks pt up. Original Note: Pt is A&O 2 male that has been more alert today than the previous time that this nurse took care of pt. Pt to discharge home via EMS under care of granddaughter. Pt has denied any pain at this time. IV antibiotic given early per MD and verified safety with pharmacy. Pt has been monitored for any changes in status. Will continue to monitor pt until discharge.
[2022-11-30 20:00] VITALS: BP 155/77; PULSE 65; RESP 16; TEMP 36.4; O2SAT 97
[2022-11-30 21:14] LABS: Glucose Point of Care 100 mg/dl (65-105)
== END 2022-11-30 20:15 | disposition home or self-care (01) | DRG 392 ==
LOC: ANHED 16:14 → ANH3MEDSUR 17:32
PROVIDERS: Family Medicine; Internal Medicine Gastroenterology; Internal Medicine Nephrology; Nurse Practitioner; Admitting Provider Internal Medicine; Emergency Provider Emergency Medicine; PCP Internal Medicine; Visit Provider Hospitalist
PROC: 0DJ08ZZ Inspection of Upper Intestinal Tract, Via Natural or Artificial Opening Endoscopic (ICD-10-PCS; CPT 43235; principal; 2022-11-26 14:45)
DX: K52.89 Other specified noninfective gastroenteritis and colitis (principal); I13.0 Hypertensive heart and chronic kidney disease with heart failure and stage 1 through stage 4 chronic kidney disease, or unspecified chronic kidney disease; E87.20 Acidosis, unspecified; N17.9 Acute kidney failure, unspecified; N18.4 Chronic kidney disease, stage 4 (severe); N39.0 Urinary tract infection, site not specified; Z16.12 Extended spectrum beta lactamase (ESBL) resistance; K44.9 Diaphragmatic hernia without obstruction or gangrene; K29.70 Gastritis, unspecified, without bleeding; K57.30 Diverticulosis of large intestine without perforation or abscess without bleeding; B96.1 Klebsiella pneumoniae [K. pneumoniae] as the cause of diseases classified elsewhere; D63.1 Anemia in chronic kidney disease; E86.0 Dehydration; E87.6 Hypokalemia; F03.90 Unspecified dementia, unspecified severity, without behavioral disturbance, psychotic disturbance, mood disturbance, and anxiety; I50.9 Heart failure, unspecified; I71.43 Infrarenal abdominal aortic aneurysm, without rupture
CPT/HCPCS: 36415; 36430; 36600; 71045; 74176; 80048; 80053; 81001; 81050; 82010; 82550; 82570; 82607; 82728; 82746; 82805; 82948; 83010; 83540; 83550; 83605; 83615; 83690; 83735; 83883; 84100; 84132; 84156; 84300; 84540; 85014; 85018; 85025; 85055; 85610; 85730; 85999; 86850; 86900; 86901; 86923; 87040; 87077; 87086; 87088; 87186; 88305; 96361; 96365; 96375; 96376; 99285; A9270; C1751; C9113; G0378; J0696; J1335; J1836; J2185; J2270; J2405; J2704; J3475; J7030; J7040; J7050; J7070; J7120; P9016; Q5105

== ENCOUNTER 2024-05-01 13:49 | Inpatient (IN) | payer MEDICARE, SELFPAY ==
[2024-05-01] VITALS (30 sets, daily range): BP systolic 143–160; BP diastolic 83–100; PULSE 61–87; RESP 12–26; TEMP 36.1; O2SAT 97–100
--- NOTE | ~2024-05-01 | CT_ITS ---
CT brain wo con Ordering provider: Rufino Weldon MD History: 88 years Male with . AMS . Comparison: May 01, 2024 Technique: CT of the head without contrast. Radiation reduction technique utilized.The dose-length pr oduct was 681 mGy-cm. FINDINGS: BRAIN PARENCHYMA AND CSF SPACES: Mild leukoaraiosis and diffuse cortical atrophy. Mild atheromatous d isease. 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 No midline shift, mass effect or hemorrhage. The brain parenchyma and CSF spaces are otherwise normal. VISUALIZED PARANASAL SINUSES: Well aerated. MASTOIDS: Well aerated. BONES: Postoperative changes in the left parietal bone. Otherwise, The bones appear intact. SOFT TISSUES: Visualized nasopharynx is normal. Superficial soft tissues are normal. IMPRESSION: No acute intracranial findings. Reviewed, dictated and finalized at location A. ET MASTER
--- NOTE | ~2024-05-01 | XR_ITS ---
XR chest 1V portable Ordering provider: Rufino Weldon MD History: 88 years Male with . AMS. States he swallowed a staple . Comparison: November 25, 2022 FINDINGS: MEDIASTINUM: The cardiac silhouette is slightly enlarged. LUNGS: No effusions or pneumothorax. Opacification in the left lung base medially is seen which may indicate atelectasis versus pneumonia. Clinical correlation advised. Small nodule in the right upper lobe unchanged from previous examinati on. OTHER: No free air under the diaphragm. No radiopaque foreign bodies seen. IMPRESSION: No radiopaque foreign bodies. Minimal opacification the left lung base medially. Clinical correlation advised. If clinically warran lavern CT is advised. Reviewed, dictated and finalized at location A. OL OPERATIONS MANAGER IMPRESSION: No radiopaque foreign bodies. Minimal opacification the left lung base medially. Clinical correlation advised . If clinically warranted CT is advised.
--- NOTE | ~2024-05-01 | CT_ITS ---
CT chest abdomen pelvis wo con Ordering provider: Rufino Weldon History: . AMS, Eval PNA, UTI . Comparison: None. Technique: CT chest without IV contrast. CT abdomen and pelvis without oral and IV contrast. Radiatio n reduction technique utilized.The dose-length product was 832.85 mGy-cm. FINDINGS: The study is limited due to lack of IV contrast. CHEST: --VISUALIZED THORACIC INLET: Normal as visualized. --MEDIASTINUM: Aorta/coronary arteries: Mild atheromatous disease. Ascending aorta measures 3.6 cm. Heart/other: The heart is slightly enlarged. Minimal pericardial effusion is noted. Lymph nodes: No mediastinal or hilar adenopathy. Calcified precarinal lymph nodes are noted. Small pa ratracheal and prevascular lymph nodes are noted. --LUNGS: No pulmonary nodules or masses. Bilateral pleural effusion is noted more on the left side.. No pneumothorax. No definite pneumonia. Underlying emphysematous changes. Calcified granuloma in the right upper lobe. --MUSCULOSKELETAL: Soft tissues: The superficial soft tissues are normal. Bones: Age appropriate degenerative changes of the spine. ABDOMEN/PELVIS: --MUSCULOSKELETAL: Bones: Age appropriate degenerative changes of the spine. Chronic loss of volume of L3. Superficial soft tissues: The superficial soft tissues are normal. --UPPER ABDOMINAL ORGANS: Liver: Normal. Gallbladder: Hyperdensities are seen near to the posterior wall of the gallbladder which may be stone s or artifacts. Ultrasound evaluation advised. Spleen: Normal. Stomach/duodenum: Large sliding hiatus hernia. Pancreas: Normal. Adrenals: Normal. Kidneys: Hyperdensity seen in the left kidney lower pole is suggestive of vascular calcifications. St one is less likely. Follow-up advised. Stone is seen in the lower left ureter which measures 6 mm. No hydronephrotic changes seen slightly atrophic left kidney compared to the right is noted. Follow-up advised. Small calcific area in the right kidney midpole most likely a stone. No ureteric stones seen on the right side. --PELVIC ORGANS: The bladder is normal. No bladder stones. --BOWEL AND MESENTERY: Colon: Mild diverticulosis without diverticulitis sigmoid colon. Impacted fecal material is seen in t he rectum with fat stranding seen posteriorly which may indicate proctitis. Fecal material is also no lavern in the colon suggestive of constipation. Normal appendix. Small Bowel: Normal. No obstruction. Peritoneum/mesentery: No free air or free fluid. No mesenteric lymphadenopathy. --RETROPERITONEUM: Moderate atheromatous disease of the abdominal aorta with an aneurysm is seen in the distal aorta measuring 3.8 x 3.6 cm. Slight dilatation of the proximal iliac arteries is also not ed. No retroperitoneal lymphadenopathy. IMPRESSION: CHEST: 1. Bilateral pleural effusion with adjacent atelectatic changes. 2. Minimal pericardial effusion. ABDOMEN/PELVIS: 1. Abdominal aortic aneurysm. 2. Large sliding hiatus hernia. 3. Constipation. 4. Impacted fecal material seen in the rectum with highly suggestive of proctitis. Clinical evaluati on advised. 5. Possible Left lower ureteric stone with no hydronephrotic changes. Smaller left kidney than the r ight. Highly suggestive right kidney stone. 6. Possible gallbladder stones. Ultrasound evaluation advised. Reviewed, dictated and finalized at location A. NISTRATIVE AIDE IMPRESSION: CHEST: 1. Bilateral pleural effusion with adjacent atelectatic changes. 2. Minimal pericardial effusion. ABDOMEN/PELVIS: 1. Abdominal aortic aneurysm. 2. Large sliding hiatus hernia. 3. Constipation. 4. Impacted fecal material seen in the rectum with highly suggestive of procti tis. Clinical evaluation advised. 5. Possible Left lower ureteric stone with no hydronephrotic changes. Smaller left kidney than the right. Highly suggestive right kidney stone. 6. Possible gallbladder stones. Ultrasound evaluation advised.
[2024-05-01 13:58] LABS: Glucose Point of Care 95 mg/dl (65-105)
--- OUTSIDE RECORDS SUMMARY | 2024-05-01 14:48 | XMS_ITS | Clinical Summary ---
Author Organization [facility] Address [address] [place] [address] Care Team Providers Care Aboriginal Ceremonial Celebrant Name Role Phone Rambo Bradford MD Primary Care Provider [phone] Source Comments [facility],non-owned Affiliates and Associated Physician Practices is amultiple site organization consisting of ambulatory clinics and hospital sitesin [place], [place], [place] and [place]. This disclosure is being madepursuant to the Care Everywhere program and may not contain all information available regarding this patient. Last updated 17.[facility] Allergies No known active allergies Medications * Be aware that medications may not be up to date on this document. Alwaysverify current medications with the patient. Medication Sig Dispensed Refills Start Date End Date Status enalapril (VASOTEC) 20 MG tablet Take 20 mg by mouth once daily Active omeprazole (PRILOSEC) 20 MG capsule Take 20 mg by mouth daily before breakfast Active pravastatin (PRAVACHOL) 40 MG tablet Take 40 mg by mouth at bedtime Active amLODIPine (NORVASC) 10 MG tablet Take 10 mg by mouth once daily Active FLUoxetine (PROZAC) 60 MG tablet Take 60 mg by mouth once daily Active triamterene (DYRENIUM) 50 MG capsule Take 25 mg by mouth once daily Active rOPINIRole (REQUIP) 2 MG tablet Take 2 mg by mouth 2 times daily Active VITAMIN D, CHOLECALCIFEROL, PO Activ e Multiple Vitamins-Minerals (PRESERVISION AREDS PO) Active Ferrous Sulfate (IRON CR PO) Active glipiZIDE CR 24hr (GLIPIZIDE XL) 2.5 MG tablet Take 2.5 mg by mouth daily before breakfast Active Social History Tobacco Use Types Packs/Day Years Used Date Smoking Tobacco: Former Smokeless Tobacco: Never Sex and Gender Information Value Date Recorded Sex Assigned at Not on file Gender Identity Not on file Sexual Orientation Not on file Last Filed Vital Signs Vital Sign Reading Time Taken Comments Blood Pressure 102/62 01/05/2017 2:11 PM CDT Pulse 76 01/05/2017 2:11 PM CDT Temperature 36.6 C (97.9 F) 01/05/2017 2:11 PM CDT Respiratory Rate 16 01/05/2017 2:11 PM CDT Oxygen Saturation 96% 01/05/2017 2:11 PM CDT Inhaled Oxygen Concentration - - Weight 97.5 kg (215 lb) 01/05/2017 2:11 PM CDT Height 182.9 cm (6') 01/05/2017 2:11 PM CDT Body Mass Index 29.16 01/05/2017 2:11 PM CDT Plan of Treatment Health Maintenance Due Date Last Done Comments MEDICARE AWV 12 MONTHS 1936 DTAP/TDAP/TD VACCINES (1 - Tdap) 07/24/1954 PNEUMOCOCCAL VACCINE 50+ (1 of 1 - PCV) 1986 ZOSTER VACCINE (1 of 2) 1986 Respiratory Syncytial Virus (RSV) Vaccine Pt: or over 60 yrs (1 - 1-dose 75+ series) 07/24/2011 COVID-19 VACCINE ( - 2023-2 5 season) 2023 INFLUENZA VACCINE (#1) 2023 DEPRESSION SCREENING 03/04/2024 HEPATITIS B VACCINE Aged Out No longe r eligible based on patient's age to complete this topic HIB VACCINE Aged Out No longer eligi ble based on patient's age to complete this topic HPV VACCINE Aged Out No longer eligi ble based on patient's age to complete this topic MENINGOCOCCAL (Group B) VACCINE Aged Out No longer eligible based on patient's age to complete this topic MENINGOCOCCAL VACCINE Aged Out No jamie kelly eligible based on patient's age to complete this topic Care Teams Aboriginal Ceremonial Celebrant Relationship Specialty Start Date End Date Rambo Bradford MD [address] [place] [address] [address] [place] [phone] PCP - General Internal Medicine 01/05/17
--- OUTSIDE RECORDS SUMMARY | 2024-05-01 14:48 | XMS_ITS | Patient Health Summary ---
Author Organization [facility] Address [address] [place] [address] Care Team Providers Care Financial Market Dealer Name Role Phone Rambo Bradford MD Primary Care Provider [phone] [facility],non-owned Affiliates and Associated Physician Practices is amultiple site organization consisting of ambulatory clinics and hospital sitesin [place], [place], [place] and [place]. This disclosure is being madepursuant to the Care Everywhere program and may not contain all information available regarding this patient. Last updated 17.[facility] Allergies No known active allergies Medications * Be aware that medications may not be up to date on this document. Alwaysverify current medications with the patient. * enalapril (VASOTEC) 20 MG tablet Take 20 mg by mouth once daily * omeprazole (PRILOSEC) 20 MG capsule Take 20 mg by mouth daily before breakfast * pravastatin (PRAVACHOL) 40 MG tablet Take 40 mg by mouth at bedtime * amLODIPine (NORVASC) 10 MG tablet Take 10 mg by mouth once daily * FLUoxetine (PROZAC) 60 MG tablet Take 60 mg by mouth once daily * triamterene (DYRENIUM) 50 MG capsule Take 25 mg by mouth once daily * rOPINIRole (REQUIP) 2 MG tablet Take 2 mg by mouth 2 times daily * VITAMIN D, CHOLECALCIFEROL, PO * Multiple Vitamins-Minerals (PRESERVISION AREDS PO) * Ferrous Sulfate (IRON CR PO) * glipiZIDE CR 24hr (GLIPIZIDE XL) 2.5 MG tablet Take 2.5 mg by mouth daily before breakfast Social History Tobacco Use Types Packs/Day Years [...] Mass Index 29.16 01/05/2017 2:11 PM CDT Procedures * STREP A SCREEN - POINT OF CARE (AMB) STL(Performed 01/05/2017) Performed for Acute streptococcal pharyngitis Results * (ABNORMAL) STREP A SCREEN - POINT OF CARE (AMB) STL (01/05/2017) Strep A Rapid POCT Positive(A) Negative Strep A Internal Control Present Lot # [id number] Expiration Date 06/20/2018 Throat ENTIRE THROAT (SURFACE REGION OF NECK) / Unknown 01/05/2017 Linda Zavala APRN-PATIENT FINANCIAL REPRESENTATIVE LAB - POINT OF CARE ORDERABLES Care Teams Financial Market Dealer Relationship Specialty [place] [address] [place] [phone] PCP - General Internal Medicine 01/05/17
--- OUTSIDE RECORDS SUMMARY | 2024-05-01 14:48 | XMS_ITS | Clinical Summary ---
Author Organization [facility] Address [address] [place] [address] Care Team Providers Care Track Repair Worker Name Role Phone Miguel Ángel Vigil MD Primary Care Provider [phone] Social History Tobacco Use Types Packs/Day Years Used Date Smoking Tobacco: Never Assessed Sex and Gender Information Value Date Recorded Sex Assigned at Not on file Legal Sex Male 10:08 AM CDT Gender Identity Not on file Sexual Orientation Not on file Plan of Treatment Health Maintenance Due Date Last Done Comments DTaP, Tdap and Td Vaccines ( 1 - Tdap) 07[birth year]24/1954 Zoster Vaccines (1 of 2) 1986 Annual Medicare Wellness Visit 2001 Pneumococcal Vaccine: 65+ Ye ars (1 of 1 - PCV) 2001 RSV Immunization or 60+ Years (1 - 1-dose 75+ series) 07/24/2011 COVID-19 Vaccine ( - 2023-2 5 season) 2023 Influenza Adult (#1) 2023 Meningococcal B Vaccine Aged Out No l onger eligible based on patient's age to complete this topic Meningococcal Vaccine Aged Out No jamie kelly eligible based on patient's age to complete this topic RSV Immunizations Under 20 Months Aged Out No longer eligible based on patient's age to complete this topic Additional Health Concerns Infection Onset 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
--- OUTSIDE RECORDS SUMMARY | 2024-05-01 14:48 | XMS_ITS | Referral Summary ---
Author Organization [facility] Address [address] [place] [address] Care Team Providers Care Stock Crane Operator Name Role Phone Rambo Bradford MD Primary Care Provider [phone] [facility],non-owned Affiliates and Associated Physician Practices is amultiple site organization consisting of ambulatory clinics and hospital sitesin [place], [place], [place] and [place]. This disclosure is being madepursuant to the Care Everywhere program and may not contain all information available regarding this patient. Last updated 17.[facility] Allergies No known active allergies Medications * [...] 01/05/2017 2:11 PM CDT Plan of Treatment Not on file Care Teams Stock Crane Operator Relationship Specialty Start Date End Date Rambo Bradford MD [address] [place] [phone] PCP - General Internal Medicine 01/05/17
--- OUTSIDE RECORDS SUMMARY | 2024-05-01 14:48 | XMS_ITS | Patient Health Record ---
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 Devices - LIVE BAG EXTERNALLY DAILY Active Misc. Devices - 18 INCHES EXTNSION TUBING FOR CONDOM CATHETER [id number] DAILY Active Sodium Bicarbonate 650 mg TAKE 1 TABLET BY MOUTH TWICE A DAY BEFORE MEALS for 30 Active Pravastatin Sodium 40 mg TAKE 1 TABLET B Y MOUTH AT BEDTIME for 30 Active Carvedilol 25 MG 1 tablet with food Orally Twice a day for 90 days Active Ventolin HFA 108 (90 Base) MCG/ACT 2 puffs as needed for shortness of breath Inhalation every 4 hrs 05/07/2023 Active Jardiance 10 MG 1 tablet Orally Once a day for 30 days Active Narcan 4 MG/0.1ML 4mg as needed for op ioid overdose Nasally once 05/07/2023 Active Misc. Devices - 34 MM CONDOM CATHETE R EXTERNALLY DAILY 12/20/2022 Active Misc. Devices - CONDOM CATHETER 36 M M EXTERNALLY DAILY Active Misc. Devices - CLEANING WIPES EXTERNALLY DAILY Active HYDROcodone-Acetaminophe n 5-325 MG 1 tablet Orally TWICE A DAY As needed SEVERE JOINT PAIN 04/16/2024 Active Methenamine Hippurate 1 GM TAKE 1 TABLET BY MOUTH DAILY FOR PREVENTION OF URINARY TRACT INFECTION for 30 Active Pen [place] 07/17 31G X 8 MM ONE NEEDLE SC DAILY 07/26/2022 Active Aspirin Adult Low Dose 81 MG 1 tablet Orally Once a day Active Bisacodyl 5 MG 1 tablet as needed Orally TWICE DAILY Active amLODIPine Besylate 5 MG 1 tablet Orally Once a day for 90 days Active Finasteride 5 mg TAKE 1 TABLET BY NAA TH DAILY for 30 Active Tamsulosin HCl 0.4 MG 1 capsule Orally t wice a day for 30 days Active FeroSul 325 (65 Fe) mg TAKE 1 TABLET BY MOUTH DAILY for 30 Active Pantoprazole Sodium 40 MG 1 tablet Orally Once a day Active Escitalopram Oxalate 10 MG 1 tablet Orally at night Act adalid Insulin Lispro 200 UNIT/ML 0 UNITS Subcutaneous THREE TIMES A DAY As needed 3 UNITS FOR BLOOD SUGAR OVER 200, 5 UNITS FOR BLOOD SUGAR OVER 300 PRIOR TO MEALS 06/13/2023 Not-Taki ng Ketoconazole 2 % 1 application TO MARCELO H ON FEET AND GROIN UNTIL RESOLVED Externally Once a day Not-Taking Ondansetron 4 MG 1 tablet on the tongue and allow to dissolve Orally TWICE A DAY As needed NAUSEA Active Social History Tobacco Use: Social History Observation Description Date Details (start date - stop date) Never Smoker NA - NA Sex Assigned At : Social History Observation Description Sex Assigned At Male Dont use, Tobacco Use/Smoking Question Answer Notes Are you a nonsmoker Tobacco Control (Standard) Question Answer Notes Tobacco use: Nonsmoker Problems Problem Type SNOMED Code ICD Code Onset Dates Problem Status W/U Status Risk Notes Problem [id number] Paroxysmal atria l fibrillation (I48.0) Active confirmed Problem Adhesive capsulitis of right shoulder (967657588741133) 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) Active confirmed Problem 35168651 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) Active confirmed Problem Hypertension (09353288) Hypertension (I10) 05/22/19 24 Active confirmed Problem 55667514 Heart murmur (R01.1) Active confirmed Problem 36850844 Chronic fatigue (R53.82) Active confirmed Problem Bed sore on buttock (L89.309) Active confirmed Problem 56681530 Hyperlipidemia, unspecified hyperlipidemia type (E78.5) Active confirmed Problem 417782336 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) Active confirmed Problem 337109096 Iron deficiency anemia 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9) 06/28/19 Active confirmed Problem Osteoarthritis (352514713) 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) Active confirmed Problem Diabetic renal disease (235483469) Type 2 diabetes mellitus with chronic kidney disease, without long-term current use of insulin, unspecified CKD stage (E11.22) 06/30/19 Active confirmed Problem 40219254 Gait disorder (R26.9) Active confirmed Problem 241815029 Right hemiparesi s (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.91) Active confirmed Problem 807043913 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 confirmed Vital Signs Blood pressure diastolic 70 [facility] READING TODAY mm Hg Blood pressure systolic 130 mm Hg 05/22/2023 Encounters Encounter Location Date Provider Diagnosis [facility] [place] [address] 05/06/2023 Miguel Ángel Vigil [address] [place] [address] 05/13/2023 Miguel Ángel Vigil UTI (urinary tract infection) N39.[address] [place] [address] 05/23/2023 Miguel Ángel Vigil [address] [address] 06/21/2023 Miguel Ángel Vigil [address] [place] [address] 06/26/2023 Miguel Ángelfemi Vigil [address] [place] [address] 07/31/2023 Miguel Ángel Vigil Diarrhea R19.[address] [address] 08/09/2023 Miguel Ángel Vigil Osteoarthritis involving multiple joints on both sides of body M15.[address] [place] [address] 08/23/2023 Miguel Ángel Vigil [address] [address] 10/10/2023 Miguel Ángel Vigil [address] [address] 10/16/2023 Miguel Ángel Vigil Osteoarthritis involving multiple joints on both sides of body M15.[address] [place] [address] 11/12/2023 Miguel Ángel Vigil [address] [address] 12/02/2023 Miguel Ángel Vigil [address] [address] 12/12/2023 Miguel Ángel Vigil [address] [address] 12/20/2023 Miguel Ángel Vigil [address] [place] [address] 12/23/2023 Miguel Ángel Vigil Osteoarthritis involving multiple joints on both sides of body M15.[address] [place] [address] 12/25/2023 Miguel Ángel Vigil [facility] [address] [place] [address] 01/15/2024 Miguel Ángel Vigil [facility] [address] [place] [address] 01/23/2024 Miguel Ángel Vigil [address] [place] [address] 04/09/2024 Miguel Ángel Vigil Osteoarthritis involving multiple joints on both sides of body M15.[address] [place] [address] 04/22/2024 Miguel Ángel Vigil [address] [address] 04/30/2024 Miguel Ángel Vigil [address] [place] [address] 05/07/2023 Miguel Ángel Vigil Osteoarthritis involving multiple joints on both sides of body M15.9 ; Type 2 diabetes mellitus with chronic kidney disease, without long-term current use of insulin, unspecified CKD stage E11.22 ; Completed stroke I63.9 ; Paroxysmal atrial fibrillation I48.0 ; Right hemiparesis G81.91 ; Chronic kidney disease, unspecified CKD stage N18.9 and Iron deficiency anemia due to chronic blood loss D50.[address] [place] [address] 05/22/2023 Miguel Ángel Vigil Fecal impaction of colon K56.41 and Hypertension I10 [address] [address] 06/13/2023 Miguel Ángel Vigil 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, without long-term current use of insulin E11.59 ; Hypertension I10 ; Chronic kidney disease, unspecified CKD stage N18.9 and Paroxysmal atrial fibrillation I48.[address] [address] 02/04/2024 Miguel Ángel Vigil Osteoarthritis involving multiple joints on both sides of body M15.9 ; Hypertension I10 ; Completed stroke I63.9 ; Right hemiparesis G81.91 ; Paroxysmal atrial fibrillation I48.0 ; Chronic kidney disease, unspecified CKD stage N18.9 ; Benign prostatic hyperplasia with lower urinary tract symptoms N40.1 ; 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 04/09/2024 Osteoarthritis involving multiple joints on both sides of body (ICD-10 - M15.9) 05/13/2023 UTI (urinary tract infection) (ICD-10 - N39.0) 05/22/2023 Hypertension (ICD-10 - I10) 05/22/2023 Fecal impaction of colon (ICD-10 - K56.41) DISCUSSED LAXATIVE REGIMEN. USE BISACODYL 5 MG BID, SENNA 8.6MG 2 BID, MIRALAX 17GM BID UNTIL BOWELS MOVE, THEN DECREASE TO DAILY. MAY INCREASE TO BID NEEDED. DISCUSSED ADEQUATE WATER AND FIBER INTAKE. 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, without long-term current use of insulin (ICD-10 - E11.59) 07/31/2023 Diarrhea (ICD-10 - R19.7) 08/09/2023 Osteoarthritis involving multiple joints on both sides of body (ICD-10 - M15.9) 10/16/2023 Osteoarthritis involving multiple joints on both sides of body (ICD-10 - M15.9) 12/23/2023 Osteoarthritis involving multiple joints on both sides of body (ICD-10 - M15.9) 02/04/2024 Hypertension (ICD-10 - I10) 02/04/2024 Osteoarthritis involving multiple joints on both sides of body (ICD-10 - M15.9) 02/04/2024 Completed stroke (ICD-10 - I63.9) 06/13/2023 Chronic kidney disease, unspecified CKD stage (ICD-10 - N18.9) 05/07/2023 Completed stroke (ICD-10 - I63.9) 06/13/2023 Paroxysmal atrial fibrillation (ICD-10 - I48.0) 05/07/2023 Paroxysmal atrial fibrillation (ICD-10 - I48.0) 02/04/2024 Right hemiparesis (ICD-10 - G81.91) 05/07/2023 Right hemiparesis (ICD-10 - G81.91) 02/04/2024 Paroxysmal atrial fibrillation (ICD-10 - I48.0) 05/07/2023 Chronic kidney disease, unspecified CKD stage (ICD-10 - N18.9) 02/04/2024 Chronic kidney disease, unspecified CKD stage (ICD-10 - N18.9) 02/04/2024 Benign prostatic hyperplasia with lower urinary tract symptoms (ICD-10 - N40.1) 05/07/2023 Iron deficiency anemia due to chronic blood loss (ICD-10 - D50.0) 02/04/2024 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 [facility] PT/OT, RN 05/13/2023 Other Learning About the Safe Use of Antibiotics material was discussed. Pt was educated on use of antibiotic medication including dosing, side effects, adverse effects and anticipated response. Pt was also educated on importance of completing full course of treatment as ordered. Patient voiced understanding of all. Plan Of Treatment Future Test Test Name Order Date Xray : Knee, left 2 views 06/27/2022 30 day Event Monitor 06/27/2022 Chest X-ray PA and lateral 06/27/2022 Electrocardiogram (EKG) 06/27/2022 MRI : Brain without Contrast 06/27/2022 Echo doppler exam 06/27/2022 Insurance Providers Payer Name Payer Address Payer Phone Subscriber Number Group Number Insured Name Patient Relationship to Insured Coverage Start Date Coverage End Date MEDICARE PART A [address] [place] [address] [id number] Karl Thompson Self - patient is the insured 2 [facility] [address] [place] [address] [id number] Karl Thompson Self - patient is the insured 3 Medical (General) History Surgical History Surgery Date(Month/Year) Hospitalization History Reason Date(Month/Year) UTI 04/2024 uti 01/2024 Blood transfusion 06/2022
--- OUTSIDE RECORDS SUMMARY | 2024-05-01 14:49 | XMS_ITS | Continuity of Care Document ---
Author Name Auto Generated, Auto Generated Organization [facility] Support Name Relationship Address Phone Marlena Warner Emergency Contact [address] [place] [address] Marlena Warner Daughter [address] [place] [address] [place] Daughter [address] [place] [address] Unavailable Karly Hinojosa Daughter [address] [place] [address] Unavailable Karl Thompson Financial [employer] [address] [place] [id number] Karl Thompson Self [address] [place] [address] Chanel Thompson Emergency Contact [address] [place] [address] Chanel Thompson Spouse [address] [place] [address] Sugar Torre Emergency Contact [address] [place] [address] Unavailable Summary Purpose Consult/Referral Allergies, Adverse Reactions, Alerts Type Description/Agent Code Date Allergy Active Date Allergy Inactivated Date of Last Reaction Adverse Reactions Severity Status Comments Source of Information FDB Medic ation Ingre dient tamsulosin Active Patien t History Medications No Known Medications Conditions/Problems Problem/Diagnosis Awareness of Diagnosis Code (ICD-10) Onset Date (Start Date) Resolution Date (End Date) Status Source Comments ESSENTIAL (PRIMARY) HYPERTENSION I10 05/24/19 21 Active MD Yosvany Rodriguez OTHER PERSISTENT ATRIAL FIBRILLATION I48.19 05/24/19 21 Active MD Yosvany Rodriguez PERSONAL HISTORY OF TRANSIENT ISCHEMIC ATTACK (TIA), 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 05/24/19 21 Active MD Yosvany Rodriguez PERSONAL HISTORY OF TRAUMATIC BRAIN INJURY Z87.820 05/24/19 21 Active MD Yosvany Rodriguez TYPE 2 DIABETES MELLITUS WITHOUT COMPLICATIONS E11.9 05/24/19 21 Active MD Yosvany Rodriguez MIXED INCONTINENCE N39.46 05/24/19 21 Active MD Yosvany Rodriguez FULL INCONTINENCE OF FECES R15.9 05/24/19 21 Active MD Yosvany Rodriguez VITAMIN D DEFICIENCY, UNSPECIFIED E55.9 05/24/19 21 Active MD Yosvany Rodriguez DRY EYE SYNDROME OF UNSPECIFIED LACRIMAL GLAND H04.129 05/24/19 21 Active MD Yosvany Rodriguez HYPERLIPIDEMIA, UNSPECIFIED E78.5 05/24/19 21 Active MD Yosvany Rodriguez REPEATED FALLS R29.6 05/24/19 21 Active MD Yosvany Rodriguez GENERALIZED ANXIETY DISORDER F41.1 05/24/19 21 Active MD Yosvany Rodriguez MAJOR DEPRESSIVE DISORDER, SINGLE EPISODE, UNSPECIFIED F32.9 05/24/19 21 Active MD Yosvany Rodriguez CUSTODIAL (CURRENT) USE OF ANTICOAGULANTS Z79.01 05/24/19 21 Active MD Yosvany Rodriguez URINARY TRACT INFECTION, SITE NOT SPECIFIED N39.0 05/19/19 21 Active MD Yosvany Rodriguez Procedures No Known Procedures
--- OUTSIDE RECORDS SUMMARY | 2024-05-01 14:49 | XMS_ITS | CONTINUITY OF CARE DOCUMENT ---
Author Name miya holliday Address Unknown Organization [facility] Address [address] [place] [address] Phone [phone] Care Team Providers Care Major Account Representative Name Role Phone Henri Fischer MD Unavailable [phone] Rambo Bradford MD Unavailable Rambo Bradford MD Unavailable PROBLEMS Condition Status Date Provider Notes Elevated creatinine active Henri Fischer MD Tobacco use, quit active Henri Fischer MD Chest pain-type to be determined active Henri Fischer MD Stroke active Padilla Leo Atrial fib active Henri Fischer MD Syncope and collapse active Henri Fischer MD Diabetes mellitus active Henri Fischer MD Intracranial hemorrhage active Padilla casiano Hemiparesis, right active Henri Fischer MD Muscle spasm active Henri Fischer MD Carotid artery stenosis, <50% ICA b/l active 8 Padilla Leo Mitral regurgitation, mild active Padilla Leo Obstructive sleep apnea active Padilla casiano Frequent falls active Padilla Leo Weakness active Padilla Leo Hypertension active Jameson Salguero ENCOUNTERS Date Type Provider Location Encounter Diag nosis - In-person encounter Office Visit Henri Fischer MD [facility] - In-person encounter Office Visit Henri Fischer MD [facility] Hypertension - In-person encounter Office Visit Henri Fischer MD [facility] Frequent fallsWeakness - In-person encounter Office Visit Judson Last MD [facility] - In-person encounter Office Visit Henri Fischer MD [facility] StrokeIntracranial hemorrhageCarotid artery stenosis, <50% ICA b/lObstructive sleep apnea - In-person encounter Office Visit Henri Fischer MD [facility] - In-person encounter Office Visit Henri Fischer MD [facility] - In-person encounter Office Visit Henri Fischer MD [facility] Carotid artery stenosis, <50% ICA b/lMitral regurgitation, mild - In-person encounter Office Visit Henri Fischer MD [facility] Tobacco use, quitChest pain-type to be determinedStrokeAtrial fibSyncope and collapseDiabetes mellitusIntracranial hemorrhageHemiparesis, rightMuscle spasm VITAL SIGNS Date Observation Value Provider Body Mass Index (Ratio) 30.11 kg/m2 Michael Salguero blood pressure, diastolic, left arm 90 mm [Hg] [facility], systolic, left arm 150 mm [Hg] [place] blood pressure, diastolic, right arm 80 m m[Hg] [place] blood pressure, systolic, right arm 155 m m[Hg] [facility] blood pressure, diastolic 90 mm[Hg] Anival leeam blood pressure, systolic 150 mm[Hg] Isela allen [place] oxygen saturation, oximetry 98 % am respiratory rate E&M 16 /min Romina pulse rate 104 /min [facility] weight E&M 222 [lb_av] [place] height E&M 72 [in_i] [facility] Body Mass Index (Ratio) 29.70 kg/m2 Jv dan Felipa blood pressure, diastolic, supine 80 mm[H g] Hortencia Mayers blood pressure, systolic, supine E&M 120 mm[Hg] Hortencia Mayers blood pressure, cuff size regular Cr karma Mayers blood pressure, diastolic 80 mm[Hg] Cr karma Mayers blood pressure, systolic 130 mm[Hg] Cry stal Talib respiratory rate E&M 17 /min Hortencia Mayers oxygen saturation, oximetry 96 % Hortencia Mayers pulse rate 66 /min Hortencia nick weight E&M 219 [lb_av] Hortencia nick height E&M 72 [in_i] Hortencia nick Body Mass Index (Ratio) 30.92 kg/m2 Luke Knapp NP blood pressure, cuff size large Ke rri Junior blood pressure, diastolic 70 mm[Hg] Ke rri Junior blood pressure, systolic 102 mm[Hg] Jorge Pacheco oxygen saturation, oximetry 97 % Cici Pacheco respiratory rate E&M 20 /min Cici Riley garcia pulse rate 83 /min Cici Eriberto [facility] weight E&M 228 [lb_av] Cici Eriberto [facility] height E&M 72 [in_i] Cici Conye [facility] Body Mass Index (Ratio) 28.88 kg/m2 Jv dan Felipa blood pressure, cuff size regular Ke rri Junior blood pressure, diastolic 76 mm[Hg] Ke rri Junior blood pressure, systolic 112 mm[Hg] Jorge ri Junior oxygen saturation, oximetry 96 % Cici Junior respiratory rate E&M 16 /min Cici garcia pulse rate 72 /min Cici Wei er weight E&M 213 [lb_av] Cici Wei er height E&M 72 [in_i] Cici Wei er blood pressure, diastolic 68 mm[Hg] Bud Newton blood pressure, systolic 102 mm[Hg] Martha Newton pulse rate 84 /min Delia Rosenthal belgica oxygen saturation, oximetry 97 % Delia Newton respiratory rate E&M 16 /min Vonnie Newton Body Mass Index (Ratio) 28.21 kg/m2 Mary Grace Newton weight E&M 208 [lb_av] Delia Rosenthal belgica blood pressure, diastolic, left arm 76 mm [Hg] Karly Ha blood pressure, systolic, left arm 121 mm [Hg] [facility], [facility], right arm 70 m m[Hg] Karly Ha blood pressure, systolic, right arm 114 m m[Hg] [facility], diastolic 76 mm[Hg] Md alize Ha blood pressure, systolic 121 mm[Hg] Tyesha alston Ha pulse rate 80 /min Karly Ha oxygen saturation, oximetry 99 % [facility] E&M 15 /min Karly Ha Body Mass Index (Ratio) 28.21 kg/m2 [facility] [lb_av] Karly Ha blood pressure, diastolic 77 mm[Hg] Toby Pacheco blood pressure, systolic 129 mm[Hg] Jorge Pacheco pulse rate 82 /min Cici Wei er oxygen saturation, oximetry 97 % Cici Pacheco respiratory rate E&M 16 /min Cici Lin jose Body Mass Index (Ratio) 27.66 kg/m2 Yessenia Mckeonflacopadmini weight E&M 204 [lb_av] Cici Wei lder blood pressure, diastolic, left arm 72 mm [Hg] Karly Zavala blood pressure, systolic, left arm 113 mm [Hg] Karly Zavala blood pressure, diastolic 82 mm[Hg] Md alize Zavala blood pressure, systolic 120 mm[Hg] Tyesha Zavala pulse rate 86 /min Karly Zavala oxygen saturation, oximetry 98 % Karly Zavala respiratory rate E&M 16 /min Karly Zavala Body Mass Index (Ratio) 26.17 kg/m2 Tracy Zavala height E&M 72 [in_i] Karly Zavala weight E&M 193.0 [lb_av] Karly Zavala ALLERGIES No Known Drug Allergies RESULTS Date Observation Value Provider Reference Range Interpretation Location pro brain natriuretic peptide 96 pg/mL [facility] 0-486 free thyroxine index 2.1 [facility] 1.2-4.9 triiodothyronine resin uptake 26 % [facility] 24-39 thyroxine, serum, total 8.1 ug/dL [facility] 4.5-12.0 thyroid stimulating hormone, serum 4.640 u[IU]/mL [facility] 0.450-4.500 High basophil count, absolute 0.0 x10E3/uL [facility] 0.0-0.2 Eosinophil Absolute Count 0.1 X10E3/UL [facility] 0.0-0.4 monocyte count, blood, automated 0.9 X10E3/UL [facility] 0.1-0.9 lymphocyte count, blood, automated 1.4 X10E3/UL [facility] 0.7-3.1 Absolute Neutrophils 4.6 X10E3/UL [facility] 1.4-7.0 basophils as percent of blood leukocytes 0 % [facility] Not Estab. eosinophils as percent of blood leukocytes 1 % [facility] Not Estab. monocytes as percent of blood leukocytes 13 % [facility] Not Estab. lymphocytes as percent of blood leukocytes 20 % [facility] Not Estab. neutrophils as percent of blood leukocytes 65 % [facility] Not Estab. platelet count 241 X10E3/UL [facility] [phone]/06/ 01 red blood cell distribution width 13.4 % [facility] 12.3-15.4 mean corpuscular hemoglobin concentration, RBC 34.6 G/DL [facility] 31.5-35.7 mean corpuscular hemoglobin, RBC 31.8 pg [facility] 26.6-33.0 mean corpuscular volume, RBC 92 fL [facility] 79-97 hematocrit, blood 35.5 % [facility] 37.5-51.0 Low hemoglobin, blood 12.3 g/dL [facility] 13.0-17.7 Low erythrocyte (RBC) count 3.87 X10E6/UL [facility] 4.14-5.80 Low leukocyte count, blood 7.0 X10E3/UL [facility] 3.4-10.8 alanine aminotransferase (SGPT), serum 15 1/L [facility] 0-44 aspartate aminotransferase (SGOT), serum 14 1/L [facility] 0-40 alkaline phosphatase, serum 101 1/L [facility] 39-117 bilirubin, serum, total 0.4 mg/dL [facility] 0.0-1.2 albumin/globulin ratio, serum 1.5 [facility] 1.2-2.2 globulin, serum 2.8 [facility] 1.5-4.5 albumin, serum 4.2 g/dL [facility] 3.5-4.7 protein, total, serum 7.0 g/dL [facility] 6.0-8.5 calcium, serum 9.7 mg/dL [facility] 8.6-10.2 carbon dioxide, venous blood 20 mmol/L [facility] 20-29 chloride, serum 101 mmol/L [facility] 96-106 potassium, serum 5.0 mmol/L [facility] 3.5-5.2 sodium, serum 138 mmol/L [facility] 055-604 4846/06/ 01 urea nitrogen/creatinine ratio, serum 18 [facility] 10-24 eGFR if 32 mL/min/{1 .73_m2} [facility] >59 Low eGFR if not 28 mL/min/{1 .73_m2} [facility] >59 Low creatinine, serum 2.13 mg/dL [facility] 0.76-1.27 High urea nitrogen, blood 39 mg/dL [facility] 8-27 High blood glucose, random 147 mg/dL [facility] 65-99 High hemoglobin A1C, blood, as % of total hemoglobin 6.5 % Padilla Leo LDL cholesterol, serum 110 mg/dL Padilla Leo HISTORY OF MEDICATION USE Medication Status Instructions Dates Provider Indications Com ments metoprolol tartrate 25 mg tablet active Shanell Guevara escitalopram oxalate 10 mg tablet active Shanell Guevara nifedipine 90 mg tablet extended release 24hr active Shanell Guevara ciprofloxacin HCl 250 mg tablet active Shanell Guevara PreserVision AREDS [id number] capsule active 2 once a day Cici Pacheco Stool Softener 50 mg capsule active as needed Cici Pacheco ropinirole 2 mg tablet active 2 once a day Cici Pacheco FLUOXETINE HCL active 1 once a day Cici Pacheco SKELAXIN 800 MG ORAL TABLET completed Take one tablet, up to three times a day as needed - Cici Pacheco cholecalciferol (vitamin D3) 25 mcg (1,000 unit) capsule active once a day Shanell Guevara DYAZIDE 37.5-25 MG ORAL CAPSULE completed once daily - Hortencia Mayers ZOLOFT 100 MG ORAL TABLET completed once daily - Delia Newton [facility] SENNA 8.6 MG ORAL TABLET completed prn - Cici Pacheco Pravachol 40 mg tablet active once a day Shanell Guevara OXYCODONE HCL 5 MG ORAL CAPSULE completed one every 4-6 hours prn - Delia Newton omeprazole 20 mg tablet,delayed release (DR/EC) active once a day Shanell Guevara glipizide 2.5 mg tablet extended release 24hr active Take 1 once a day Cici Pacheco KEPPRA 500 MG ORAL TABLET completed once daily - Delia Newton ferrous sulfate 325 mg (65 mg iron) tablet active once a day Shanell Guevara ENALAPRIL MALEATE 20 MG ORAL TABLET completed once daily - Henri Fischer MD BUSPIRONE HCL 7.5 MG ORAL TABLET completed one tab twice daily - Cici Pacheco NORVASC 10 MG ORAL TABLET completed ONE TAB twice a day - Henri Fischer MD PROAIR HFA 108 (90 Base) MCG/ACT INHALATION AEROSOL SOLUTION completed 2 puffs every 4 hours prn - Cici Pacheco SOCIAL HISTORY Date Observation Value Provider social history reviewed E&M revi ewed - no changes required Shanell Guevara smoking status Former smoker Henri Fischer MD social history E&M S moking History: Carlyn coelho is a former smoker. Henri Fischer MD social history reviewed E&M revi ewed - no changes required Henri Fischer MD number of grandchildren Henri Ingram alcohol use no Romina smoking, year quit 1964 [place] I ngram number of years as a smoker 10 a Romina smoking, date started 1953 Killee n smoking history, tot al pack/year 65 [place] smoking history, tot al pack/day 2 Romina cigarette use yes Romina smoking history, tot al pack/year 66 Henri Fischer MD social history reviewed E&M revi ewed - no changes required Padilla Berryberg cigarette use yes Hortencia Temple[place] ms smoking status Former smoker Hortencia Santillan ia alcohol use no Cici Wei lder smoking, year quit 1963 Cici Teofilo [facility] number of years as a smoker 10 a Cici Pacheco smoking, date started 1953 Cici Pacheco smoking history, tot al pack/day 2 Cici Pacheco cigarette use yes Cici mccann smoking status Former smoker Cici shaikh number of years as a smoker 10 a Padilla [facility] social history E&M Smoking Histo ry: P meliton is a former smoker. Henri Fischer MD social history reviewed E&M revi ewed - no changes required Henri Fischer MD alcohol use no Cici Wei [facility] smoking, year quit 1963 [facility], date started 1952 Cici Pacheco smoking history, tot al pack/day 2 Cici Pacheco cigarette use yes Cici mccann smoking status Former smoker Cici shaikh social history reviewed E&M revi ewed - no changes required Henri Fischer MD alcohol use no Delia chen smoking, year quit 1964 Delia Newton smoking, date started 1953 Gian Newton smoking history, tot al pack/day 2 Delia Newton cigarette use yes Delia mendoza smoking status Former smoker Delia Dubois social history E&M Smoking Histo ry: P atient is a former smoker. Padilla Leo social history reviewed E&M revi ewed - no changes required Henri Fischer MD alcohol use no Karly Ha smoking, year quit 1963 Karly Dickey Josh smoking, date started 1952 Radha hinton Dilcia smoking history, tot al pack/day 2 Karly Ha cigarette use yes Karly Ha smoking status Former smoker Karly Burnett delbert social history reviewed E&M revi ewed - no changes required Henri Fischer MD alcohol use no Cici Wei lder smoking status Former smoker Cici Maxwellchoco shaikh social history E&M Smoking Histo ry: P atient is a former smoker. Padilla Leo social history reviewed E&M revi ewed - no changes required Padilla Leo smoking, year quit 1963 Karly Gardner abraham smoking, date started 1952 Radha hinton smoking history, tot al pack/day 2 Karly Zavala cigarette use yes Karly Zavala smoking status Former smoker Karly Zavala FAMILY HISTORY Family Member Condition Mother Family History of Ot her Diseases Father Family History of Co ronary Artery Disease: Father Family History of Darshana ng Cancer: Father Family History of Hy pertension: Mother Family History of CV A or Stroke: INSURANCE PROVIDERS Payer name Policy type / Coverage type [place] red republic[employer] ID [facility] Blue [facility] [id number] [place] MED[place] Medicare [id number] ADVANCE DIRECTIVES Name Date DISCUSSED - NO DECISION MADE TREATMENT PLAN Date Name Performer [id number],C, H is updated medication list for this problem includes: Glipizide 2.5 Mg Tablet Extended Release 24hr (Glipizide) ..... Take 1 once a day Shanell Guevara [id number],S, N ot compliant with CPAP. Shanell Guevara [id number],C, P rior BP: 150/90 (09/01/2018) Labs Reviewed: C reat: 2.13 (08/02/2018) L DL: 110 (12/25/2014) His updated medication list for this problem includes: Metoprolol Tartrate 25 Mg Tablet (Metoprolol tartrate) Nifedipine 90 Mg Tablet Extended Release 24hr (Nifedipine) Shanell Guevara [id number],C, T he pt had a recent admission for UTI and kidney stones. Apparently he takes metorprolol 25 mg at bedtime due to hx of Afib. He was only taking it once a day which caused hypotension and weakness. Now he only takes it at bedtime and is feeling well. Pt denies SOB and chest pain. No palpitations. H is updated medication list for this problem includes: Metoprolol Tartrate 25 Mg Tablet (Metoprolol tartrate) Shanell Guevara [facility] Phone Vis it: H is updated medication list for this problem includes: Glipizide 2.5 Mg Tablet Extended Release 24hr (Glipizide) ..... Take 1 once a day Shanell Guevara [facility] Phone Vis it: N ot compliant with CPAP. Shanell Guevara [facility] Phone Vis it: P rior BP: 150/90 (09/01/2018) Labs Reviewed: C reat: 2.13 (08/02/2018) L DL: 110 (12/25/2014) His updated medication list for this problem includes: Metoprolol Tartrate 25 Mg Tablet (Metoprolol tartrate) Nifedipine 90 Mg Tablet Extended Release 24hr (Nifedipine) Shanell Ismael [facility] Phone Vis it: T he pt had a recent admission for UTI and kidney stones. Apparently he takes metorprolol 25 mg at bedtime due to hx of Afib. He was only taking it once a day which caused hypotension and weakness. Now he only takes it at bedtime and is feeling well. Pt denies SOB and chest pain. No palpitations. H is updated medication list for this problem includes: Metoprolol Tartrate 25 Mg Tablet (Metoprolol tartrate) Shanell Ismael Cardiology:BP today: 150/90 P rior BP: 120/80 (08/01/2018) Labs Reviewed: C reat: 2.13 (08/02/2018) L DL: 110 (12/25/2014) Pt will monitor BP at home and if it is elevated he will call us. Henri Fischer MD Cardiology Henri Fischer MD Cardiology Henri Fischer MD Cardiology:08/01/2018 EKG showed pt was in NSR. Henri Fischer MD Cardiology:Not compliant with CP AP. Henri Fischer MD Cardiology:EKG today shows NSR. Padilla [facility] Cardiology:Pt has be en falling in the past few weeks. He had recurrent falls without LOC. He feels extreme weakness, but no chest pain or SOB. EKG today shows NSR. Will obtain CMP, CBC, thyroid panel, proBNP and schedule CT of the head without contrast. He also injured his left elbow. He has a bandage on it. He's advised to see urgent care/ER physician regarding the wound. Will obtain X-rays of the left elbow. Padilla [facility] Cardiology:Pt has be en falling in the past few weeks. He had recurrent falls without LOC. He feels extreme weakness, but no chest pain or SOB. EKG today shows NSR. Will obtain CMP, CBC, thyroid panel, proBNP and schedule CT of the head without contrast. He also injured his left elbow. He has a bandage on it. He's advised to see urgent care/ER physician regarding the wound. Will obtain X-rays of the left elbow. Padilla [facility] Cardiology Follow up HS/CATTLE BRANDER:Check echo Steffi Knapp NP Cardiology Follow up HS/CATTLE BRANDER:Untre ated Steffi Knapp NP Cardiology Follow up HS/CATTLE BRANDER:Follows with Dr. Bradford, will check labs. H is updated medication list for this problem includes: Glipizide Er 2.5 Mg Oral Tablet Extended Release 24 Hour (Glipizide) ..... Take one pill a day Enalapril Maleate 20 Mg Oral Tablet (Enalapril maleate) ..... Once daily Steffi Knapp NP Cardiology Follow up HS/CATTLE BRANDER:Currently maintaining NSR. No oral anticoagulation due to ICH. Will check ZIO. Could consider Watchman. Steffi Knapp NP Cardiology Follow up :His updated medication list for this problem includes: Glipizide Er 2.5 Mg Oral [id number] (Glipizide) ..... Take one pill a day Enalapril Maleate 20 Mg Oral Tabs (Enalapril maleate) ..... Once daily Padilla Leo Cardiology Follow up :He was evaluated by Dr. Brunson for Lariat however the pt at this time does not want a procedure done. Padilla Felipa Cardiology Follow up :He was evaluated by Dr. Brunson for Lariat however the pt at this time does not want a procedure done. [facility] Cardiology Follow up :In NSR. He was evaluated by Dr. Brunson for Lariat however the pt at this time does not want a procedure done. Padilla Leo Cardiology:His updat ed medication list for this problem includes: Metformin Hcl 500 Mg Oral Tabs (Metformin hcl) ..... Once daily Enalapril Maleate 20 Mg Oral Tabs (Enalapril maleate) ..... Once daily Henri Fischer MD Cardiology:Pt and bull butts came to discuss the Lariat procedure. They are awaiting a call from Dr. Weeks. We have sent them the requested info. Henri Fischer MD Cardiology:His updat ed medication list for this problem includes: Metformin Hcl 500 Mg Oral Tabs (Metformin hcl) ..... Once daily Enalapril Maleate 20 Mg Oral Tabs (Enalapril maleate) ..... Once daily Padilla Felipa Cardiology:We will r efer to Dr. Weeks for lariat procedure (the procedure is not available at [facility]). Padilla Felipa Cardiology, Follow up Padilla Felipa Cardiology, Follow up Padilla Felipa Cardiology, Follow u p :His updated medication list for this problem includes: Metformin Hcl 500 Mg Oral Tabs (Metformin hcl) ..... Once daily Enalapril Maleate 20 Mg Oral Tabs (Enalapril maleate) ..... 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 Padilla Felipa Cardiology, Follow u p :The pt would like to have the Lariat procedure done. 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 Padilla Leo Cardiology:His [facility] ed medication list for this problem includes: Metformin Hcl 500 Mg Oral Tabs (Metformin hcl) ..... Once daily Enalapril Maleate 20 Mg Oral Tabs (Enalapril maleate) ..... Once daily Henri Fischer MD Cardiology:Also comp lains of muscle spasms, will try Skelaxin. Henri Fischer MD Cardiology:The pt dias s a hx of paroxysmal Afib. 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 Henri Fischer MD Cardiology:At this time, he tez es chest pain Henri Fischer MD Cardiology:A few mon ths ago, he fell and had an intracranial hemmorhage (details not available yet, will obtain records from [facility]). Henri Fischer MD Cardiology:The pt dias s a hx of paroxysmal Afib. 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 He was on Coumadin and then Pradaxa. A few months ago, he fell and had an intracranial hemmorhage (details not available yet, will obtain records from [facility]). Will obtain records and then decide whether we can resume anticoagulation or consider Lariat procedure. Henri Fischer MD Cardiology:The pt dias s a hx of paroxysmal Afib. 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 He was on Coumadin and then Pradaxa. Henri Fischer MD Cardiology:The pt dias s a hx of paroxysmal Afib. 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 He was on Coumadin and then Pradaxa. A few months ago, he fell and had an intracranial hemmorhage (details not available yet, will obtain records from [facility]). At this time, he denies chest pain, SOB, and palpitations. Today, EKG shows NSR. Will obtain records and then decide whether we can resume anticoagulation or consider Lariat procedure. Henri Fischer MD Date Name X-Ray, Elbow CT Head without cont rast PROBNP, N TERMINAL THYROID PANEL WITH T SH, 3RD GENERATION CBC (INCLUDES DIFF/P LT) COMPREHENSIVE METABO LIC PANEL, W/EGFR CT, Coronary Calcium Score PROBNP, N TERMINAL THYROID PANEL WITH T SH, 3RD GENERATION STR - Adenosine URINALYSIS, RANDOM, MICROALB/CREATININE HEMOGLOBIN A1c BASIC METABOLIC PANE L W/EGFR LIPID PANEL IRON AND TOTAL IRON BINDING CAPACITY FERRITIN CBC (INCLUDES DIFF/P LT) Holter Monitor [address], Other: Mobile Cardiac Tele Carotid Duplex Bilat eral Complete Echo Sleep Study Home HISTORY OF PROCEDURES Procedure Date Procedure Name Provider Procedure Notes S tatus EKG Henri Fischer MD completed ZIO Holter Hookup Judson Last MD c ompleted EKG Judson Last MD complete d SNOMED-CT: 09665417 Physical Exam, Performed: Pulse Exam of Foot Henri Fischer MD completed EKG Henri Fischer MD completed SNOMED-CT: 126160479 941357 Current Medications Documented Henri Fischer MD completed SNOMED-CT: 77142144 Physical Exam, Performed: Pulse Exam of Foot Henri Fischer MD completed SNOMED-CT: 230225431 Smoking Cessation Counseling Henri Fischer MD completed SNOMED-CT: 348173637 966664 Current Medications Documented Henri Fischer MD completed SNOMED-CT: 514187253 Smoking Cessation Counseling Henri Fischer MD completed SNOMED-CT: 48475488 Physical Exam, Performed: Pulse Exam of Foot Henri Fischer MD completed SNOMED-CT: 094220200 867590 Current Medications Documented Henri Ficsher MD completed SNOMED-CT: 68855616 Physical Exam, Performed: Pulse Exam of Foot Henri Fischer MD completed SNOMED-CT: 458834467 Smoking Cessation Counseling Henri Fischer MD completed SNOMED-CT: 421812619 740562 Current Medications Documented Henri Fischer MD completed Mobile Cardiac Telem etry - Tech Julianna Melo completed Mobile Cardiac Telem etry - Prof Julianna Melo completed SNOMED-CT: 75875317 Physical Exam, Performed: Pulse Exam of Foot Henri Fischer MD completed SNOMED-CT: 748490297 165094 Current Medications Documented Henri Fischer MD completed EKG Henri Fischer MD completed SNOMED-CT: 543743849 Smoking Cessation Counseling Henri Fischer MD completed
--- OUTSIDE RECORDS SUMMARY | 2024-05-01 14:49 | XMS_ITS | Referral Summary ---
Author Organization [facility] Address [address] [place] [address] [address] [place] [address] Phone Care Team Providers Care Medical Records Field Technician Name Role Phone Miguel Ángel Vigil MD Primary Care Provider [phone] Encounters Date Type Department Care Team Description 04/15/2024 SHOP/CHAP Initial Outreach [facility] [address] [place] [address] Doris Shahid, RN 04/13/2024 SHOP/CHAP Initial Outreach [facility] [address] [place] [address] Doris Shahid, RN 04/10/2024 SHOP/CHAP Initial Outreach [facility] [address] [place] [address] Doris Shahid, RN 04/10/2024 SHOP/CHAP Initial Eligibility Review [facility] [address] [place] [address] Doris Shahid, RN 04/06/2024 4:04 PM ENERGY BROKER - 04/09/2024 7:04 PM ENERGY BROKER Hospital Encounter [address] [address] Becka Kearney MD Ma, MD Rosalinda Dubon Caleb, MD Farrag, Johan Barron MD Altered mental status, unspecified altered mental status type (Primary Dx); Acute cystitis without hematuria; Hallucinations; Vascular dementia, unspecified dementia severity, unspecified whether behavioral, psychotic, or mood disturbance or anxiety (HCC) Discharge Disposition: Discharge to home, home health skilled care 03/31/2024 12:59 PM ENERGY BROKER - 04/01/2024 7:11 PM [facility] Emergency [facility] Emergency Department [address] [place] [address] Stephen Cheng MD Cohn, MD Chelsey Aguayo, MD Elissa Salgado, MD Ermias Gan, Olivia Vaughan MD Constipation, unspecified constipation type (Primary Dx); Abdominal pain Discharge Disposition: Discharge to home or self care from Last 3 Months Allergies Active Allergy Reactions Criticality Noted Date Comments Doxazosin Other (See comments) Low 04/12/2009 Very weak, broke into sweat. Dutasteride Fatigue Low 07/20/2010 Tamsulosin Fatigue,Unknown Low 07/20/2010 Medications pravastatin (PRAVACHOL) 40 mg tablet Take 1 tablet (40 mg total) by mouth nightly 30 tablet 11 12/02/19 24 025 Active aspirin 81 mg enteric coated tablet Take 1 tablet (81 mg total) by mouth daily 30 tablet 12/02/19 24 Active escitalopram (LEXAPRO) 10 mg tablet Take 1 tablet (10 mg total) by mouth nightly 30 tablet 12/02/[address] (PROTONIX) 40 mg EC tablet Take 1 tablet (40 mg total) by mouth daily 30 tablet 12/02/19 24 Active finasteride (PROSCAR) 5 mg tablet Take 1 tablet (5 mg total) by mouth daily 30 tablet 12/02/19 24 Active tamsulosin (FLOMAX) 0.4 mg extended release capsule Take 2 capsules (0.8 mg total) by mouth daily with dinner 60 capsule 01/24/20 24 Active amLODIPine (NORVASC) 10 mg tablet Take 0.5 tablets (5 mg total) by mouth daily 04/09/19 25 025 Active carvediloL (COREG) 6.25 mg tablet Take 1 tablet (6.25 mg total) by mouth 2 (two) times a day with meals 04/09/19 25 025 Active carvediloL (COREG) 3.125 mg tablet Take 1 tablet (3.125 mg total) by mouth 2 (two) times a day with meals 60 tablet 12/02/19 24 025 Discontinued(St op Taking at Discharge) amLODIPine (NORVASC) 10 mg tablet Take 1 tablet (10 mg total) by mouth daily 30 tablet 12/02/19 24 025 Discontinued cephalexin (KEFLEX) 500 mg capsuleIndicat ions:Urinary Tract/Genitour inary Infection Take 1 capsule (500 mg total) by mouth daily for 4 days 4 capsule 04/09/19 25 025 Active Problems Problem Noted Date Diagnosed Date Abdominal pain 03/31/2024 Altered mental status, unspe cified altered mental status type 01/21/2024 UTI (urinary tract infection) 01/13/2024 Hallucinations 11/28/2023 Musculoskeletal chest pain 11/14/2023 AMS (altered mental status) 09/24/2023 Assessment & Plan (09/26/2023 1:39 PM CDT): Hx dementia, thought to be vascular in origin. Patient is A+Ox2 at b/l. On day of admission, patient with visual hallucinations which concerned granddaughter for underlying UTI. Has had prior admissions for similar. Saw geriatrics during 06/2023 admission and hallucinations thought to be superimposed delirium iso right arm cellulitis. bMRI at that time with mild periventricular and pontine white matter changes nonspecific but likely related to chronic small vessel disease; punctate microhemorrhage in the L subinsular white matter. This presentation, granddaughter does note a couple weeks of watery stools, but otherwise no localizing infectious symptoms. May again represent delirium in the setting of infection as patient's UA was indicative of UTI. Patient has been at baseline, alert and oriented x 2. - reversible dementia labs neg/WNL during 06/2023 admission - CXR negative for consolidation; KUB showed marked gaseous distension and a large amount of colonic contents, mostly in right colon - UCx resulted with no clinically significant growth; patient will receive last dose of ceftriaxone today for a total of 3 doses - delirium precautions - PT/OT consult, recommend SNF though per CM patient's granddaughter would like him to return home, plan to call granddaughter to discuss and plan discharge Abnormal urinalysis 09/24/2023 Assessment & Plan (09/26/2023 10:29 AM CDT): Hx recurrent UTIs, though prior UCx in 2023 were indicative of contamination. Presenting with visual hallucinations, which granddaughter states occurs when he has a UTI. UA today with >50 WBC, 11-20 RBC, 3+ leukocyte esterase, 11-20 hyaline casts. Chronically uses condom catheter due to incontinence. Unclear if today's UA was obtained via condom catheter. - condom catheter exchanged in ED - urine culture showed no clinically significant growth; will receive last dose of ceftriaxone today for a total of 3 doses CKD (chronic kidney disease) 09/24/2023 Assessment & Plan (09/24/2023 1:13 AM CDT): SCr at b/l. Follows with outpatient nephrology. - continue home sodium bicarb - continue to monitor Loose stools 09/24/2023 Assessment & Plan (09/26/2023 10:30 AM CDT): Granddaughter reports a couple weeks of completely watery stools. She is concerned he could have a blockage. Abdominal exam on admission benign with +BS. KUB showed marked gaseous distension and a large amount of colonic contents, mostly in right colon - c diff negative - scheduled senna-docusate BID Bradycardia 09/23/2023 Assessment & Plan (09/25/2023 10:24 AM CDT): HR as low as 41 in ED. HR has been 50's to 60's. EKG with sinus ruthy, 1st degree AV block. TSH high, but FT4 WNL. On coreg and amlodipine at home. - resumed coreg at 3.125, hold for heart rate <50 - monitor on telemetry Open wound of right upper arm 07/05/2023 Cellulitis of right upper limb 07/05/2023 Hypertension, essential 07/01/2023 Assessment & Plan (09/25/2023 10:24 AM CDT): - BP stable, within normal limits - hold home amlodipine - resume coreg at 3.125, hold for heart rate <50 Assessment & Plan (07/06/2023 1:09 PM CDT): Takes coreg and amlodipine at home. On hold here due to soft BP, SBP 90-100s -Resume when able, BP stable past few days, resumed home amlodipine, coreg Abscess of right forearm 06/30/2023 Assessment & Plan (07/08/2023 11:48 AM CDT): Presented with RUE swelling, erythema, and low grade temperature (37.9). D dimer 1594. Bilateral UE dopplers negative for DVT. Here, worsening of appearance of RUE, more red, swollen, with enlarging area of induration. US showed soft tissue thickening 3.7x1.8 cm, few focal 1-2mm areas of echogenicity possible dystrophic calcifications or tiny foreign body. Blood culture x1 NGTD. - Linezolid 06/30-07/01 > Augmentin 07/01-07/02 > Worsened > Restarted linezolid 07/02 - Development of abscess formation 07/03 with purulence expressed - Ortho Hand consulted s/p bedside I/D on 07/03, cultures obtained 07/04 - Ortho escalated changed dressing frequency to TID & added Dakins solution 07/06 / RUE elevation / sling - ID c/s noted culture 07/05/23 x 2 with few P. Aeruginosa - Linezolid changed to Cipro / Doxy for 10d starting from I&D 07/04 (Qtc <480) Fall, initial encounter 06/26/2023 Assessment & Plan (07/08/2023 11:48 AM CDT): Pt found down in his room, having fallen out of bed. Granddaughter does not think he hit his head, no LOC, no seizure like activity. Trauma team consulted in ED, no additional interventions recommended. CT head and neck negative for fracture or acute intracranial abnormality. XR pelvis without fracture. - PT/OT/CONVEYOR MONITOR consults. Recommend SNF. Family declined, plan home w/HH, addt'l resources ([facility]) - cont fall precautions Urinary tract infection 06/20/2023 Assessment & Plan (06/22/2023 11:37 AM CDT): Patient has hx of recurrent UTI, most recently on 06/08 found on admission given three days of ceftriaxone, urine culture indicative of contamination at that time. Developed visual hallucination, which granddaughter state is usually occurs when he has a UTI. UA today 3+ leuks, >50 WBC, RBC 21-50, 4+ yeast. Given 1x fluconazole and ceftriaxone. Chronic condom cath use d/t urinary incontinence. -Urine culture contaminated again. Granddaughter highly suspicious of UTI given that he only seems to hallucinate when he has UTIs and mental status cleared with ceftriaxone. Plan to cont po cephalosporin at discharge, total of 7 days Hypoglycemia 06/07/2023 Assessment & Plan (06/08/2023 3:11 PM CDT): Patient presented with severe hypoglycemia. Per family patient was eating dates and then BG was elevated to 600s so they gave Lantus and ended up giving a total of 50 units. Patient then developed hypoglycemia and confusion. At admission continued D5 infusion - patient now eating most of his meals, dc D5 infusion. - Accuchecks for surveillance of possible rebound hypogycemia from long acting insulin/ckd - family instructed to not give patient insulin at home Bacteremia 05/18/2023 Assessment & Plan (05/20/2023 10:50 AM CDT): Contaminant, discussed with antibiotic stewardship team, no clinical suspicion of infection. No need for antibiotics Hypomagnesemia 05/17/2023 Assessment & Plan (05/18/2023 9:55 AM CDT): replaced Fecal impaction of colon ([facility]) 05/16/2023 Assessment & Plan (05/20/2023 10:50 AM CDT): Normal TSH. Resolved, continue MiraLax and bisacodyl Abdominal aortic aneurysm (A AA) 3.0 cm to 5.5 cm in diameter in male 05/16/2023 Overview (05/16/2023): Infrarenal abdominal aortic aneurysm measuring up to 3.6 cm Gastrointestinal intolerance to foods 03/20/2023 Assessment & Plan (03/22/2023 12:46 PM ENERGY BROKER): Patient presents with ~2.5 weeks of acutely watery diarrhea upon chronic diarrhea of >2 years duration in setting of recent ABX use including tx for Cdif with fidaxomycin and reported prior c diff infections with possible sick contacts at home. DDX: c diff, enteritis / IBD / CD / UC, abx-associated diarrhea / dysbiosis, celiac, pancreatic insufficiency, common O&P. Benign abdominal exam. - lab battery for acute and chronic diarrhea - celiac, crypto / giardia, guiac, calprotectin, panc elastase, roto/noro - TSH 5.04, FT4 0.99, IgA 223 (nl), TTG IGA <0.5, CRP 1 (nl), vit D 58 He has not had diarrhea in hospital, but he has chronic diarrhea at home 2x / day, now with acutely worse diarrhea in the setting of treated Cdiff and antibiotic regimens possibly causing dysbiosis. Rapidly resolving diarrhea here might suggest he has a food intolerance with diet at home, which lactose may be most likely culprit. Patient describes drinking milk at home, but no milk here. Re: foul odor to diarrhea, caregiver describes recent change in diet, adding more protein, including 4 eggs w/ breakfast. I suspect this may have altered the odor of his stool. Dementia 03/20/2023 Assessment & Plan (07/08/2023 12:01 PM CDT): Presented with history dementia with a possible superimposed acute delirium and/or exacerbation from possible infection. Dementia likely stems from a vascular origin, given CVA in 2015 and hematoma seen on prior CTHs. Pt and family reported 2 month h/o AMS, worsening dementia, and hallucinations. Per workup, no sig growth on UCx and ID stewardship recommending holding off on CTX this hospital stay. Right arm cellulitis / abscess likely source of infection causing hallucinations, although he has denied any hallucinations during his hospital stay. HIV/RPR negative. TSH 4/5 was 4.73 with normal T4. bMRI with old infarct in the L HARLEY territory and small cortical infarcts. Mild periventricular and pontine white matter changes nonspecific but likely related to chronic small vessel disease, punctate microhemorrhage in the L subinsular white matter. - Continue delirium precautions - Hold off on starting Donepezil or Memantine for now - Follow-up in Geriatrics clinic. SW to reach out to patient's family to discuss options to help with patient transportation to clinic appointment, send referral at discharge. Assessment & Plan (06/20/2023 6:14 PM CDT): Per granddaughter pt at baseline is A&Ox2 to self and place, although able to follow conversations well. H/O vascular dementia - fall precautions - PT/OT consult - Consider outpatient geriatric consultation Assessment & Plan (06/07/2023 9:37 AM CDT): Supportive care, avoid delirium Assessment & Plan (05/19/2023 9:01 AM CDT): Per notes, A&Ox1-2 at baseline. Frequent irritation, delirium precautions Assessment & Plan (03/21/2023 11:44 AM ENERGY BROKER): Per notes, A&Ox1-2 at baseline; seems to be at chronic baseline currently - Delirium precautions, high risk Poor short-term memory 11/16/2020 Acute renal failure superimp osed on stage 4 chronic kidney disease ([facility]) 11/16/2020 Assessment & Plan (07/08/2023 10:42 AM CDT): Cr baseline around 2.8-3. Cr up to 3.2. Follows with OP nephrology. - will try gentle hydration w/IVF ~75ml/hr - monitor BMP closely, avoid contrast / nephrotoxins for imaging, if able Assessment & Plan (06/20/2023 4:46 PM CDT): Cr baseline around 2-3, today Cr is 2.62. Reports lack of po hydration for several days. Per pt granddaughter, follows with OP nephrology. - Monitor I/O, Renal function. - Encourage hydration - Follow up with nephrology for further management Assessment & Plan (06/07/2023 9:37 AM CDT): Creatinine at baseline Assessment & Plan (05/18/2023 9:55 AM CDT): The patient has a history of CKD due to hypertension and diabetes(?). His baseline Cr is around 2.8-3.0. He does not follow with a central office mechanic. Kidney imaging 05/16/23 CT AP WO Contrast showed nonobstructive bilateral renal calculi and distal left ureteral calculus. No hydronephrosis. Proteinuria 03/21/2023: Albumin Creatinine Ratio, Ur 83 CKD/ESRD regimen: sodium bicarb 650 BID Assessment & Plan (03/21/2023 8:41 AM ENERGY BROKER): Renal function stable / improved from prior. -CTM volume status, renal function -Avoid renal toxins, renally dose meds Hematochezia 11/16/2020 Dyslipidemia 11/16/2020 Assessment & Plan (05/16/2023 11:36 PM CDT): Home med: pravastatin 40 mg daily. -continue pravastatin Assessment & Plan (03/21/2023 11:43 AM ENERGY BROKER): - continue home pravastatin Depressive disorder 11/16/2020 Assessment & Plan (09/24/2023 1:13 AM CDT): - continue home lexapro Assessment & Plan (05/16/2023 11:37 PM CDT): Home med: escitalopram 10 mg daily. -continue escitalopram Assessment & Plan (03/21/2023 11:43 AM ENERGY BROKER): - continue home lexapro Abnormal international normal ratio (INR) 2020 Mixed stress and urge urinary incontinence 05/23 Incontinence, feces 05/23/2020 Dry eye syndrome of unspecified lacrimal gland 0 05/23/2020 History of UTI 05/18/2020 Assessment & Plan (06/09/2023 11:22 AM CDT): UA at admission with pyuria. Patient denies symptoms. - PVR 81 - urine cx contaminated - completed 3 days of Ceftriaxone Assessment & Plan (03/21/2023 12:36 PM ENERGY BROKER): Patient with reported history of frequent / recurrent UTIs in setting of chronic urinary retention due to BPH however UAs and cultures seem to be frequently contaminated and last admission felt more likely to represent colonization than infection. Stable vitals, normal wbc, etc. Family reports patient has historically experienced urosepsis with early manifestation of hallucinations, not currently occurring. - no concern for UTI at this time High serum creatinine 08/05/2018 History of stroke 07/20/2015 Assessment & Plan (07/08/2023 10:42 AM CDT): Baseline of A&Ox2 but able to follow conversations, able to ambulate without walker, although unstable. Lives with granddaughter, who is healthcare risk control consultant. Old infarct in the left HARLEY territory and additional small cortical infarcts in the high left perirolandic cortex. Mild periventricular and pontine white matter changes nonspecific but likely related to chronic small vessel disease. Punctate microhemorrhage in the left subinsular white matter. - Continue aspirin, pravastatin - plan home at discharge, Granddaughter (Teri Luke) multimedia engineer systems engineering manager - patient already w/HH and 24hr care in [address] Assessment & Plan (06/20/2023 4:53 PM CDT): Baseline of A&Ox2 but able to follow conversations, able to ambulate without walker, although unstable. Lives with granddaughter, who is healthcare risk control consultant. -PT/OT consult Personal history of nicotine dependence 02/24/20 15 Hemiparesis (CMS/HCC) 02/23/2015 DM (diabetes mellitus) 02/15/2015 Assessment & Plan (09/25/2023 10:23 AM CDT): Diet controlled. Blood glucose controlled in hospital. - monitor BG on BMP and accuchecks Assessment & Plan (07/05/2023 4:48 PM CDT): - Diet controlled - A1c 5.7% - Monitored sugars daily with BMP, BG stable Assessment & Plan (06/20/2023 4:51 PM CDT): Diet control, Last A1c 5.7 in 12/2022 - A1c pending - CC diet - Monitor sugars daily with BMP - Follow up with PCP for further management of sugars Assessment & Plan (06/07/2023 10:06 AM CDT): a1c 5.7 Favor no treatment of any sort given age/comorbid conditions Assessment & Plan (05/17/2023 4:36 PM CDT): Per chart review, A1c 5.7. Assessment & Plan (03/21/2023 11:40 AM ENERGY BROKER): No longer on meds, currently diet-controlled with last A1c 5.7% - Trend glucose with routine labs as indicated. Atrial fibrillation ([facility]) 02/15/2015 Assessment & Plan (09/24/2023 2:06 PM CDT): Not on AC given fall risk. - coreg resumed at 3.125, hold if heart rate <50 - monitor on telemetry Assessment & Plan (07/08/2023 10:41 AM CDT): At home on carvedilol 6.25mg BID. - Not on AC, high fall risk - resumed carvedilol 5/3, HR well controlled. Assessment & Plan (06/22/2023 11:38 AM CDT): Home: Carvediol 25mg, no AC -reduce Coreg dose due to bradycardia Assessment & Plan (05/18/2023 9:54 AM CDT): Not on AC, NSR w/ RBBB on ED EKG. Continue Coreg Assessment & Plan (03/21/2023 11:41 AM ENERGY BROKER): Not on AC, NSR w/ RBBB on ED EKG. - continue home metoprolol Allergic rhinitis 05/18/2013 BPH (benign prostatic hyperplasia) 05/21/2012 Assessment & Plan (09/24/2023 1:12 AM CDT): - continue home flomax Assessment & Plan (07/08/2023 10:42 AM CDT): -Tamsulosin 0.4mg daily Assessment & Plan (06/20/2023 4:37 PM CDT): - Continue tamsulosin 0.4mg Assessment & Plan (05/18/2023 9:55 AM CDT): Home med: tamsulosin 0.4 mg qPM. Uses a condom cath at home. Continue tamsulosin Assessment & Plan (03/21/2023 11:43 AM ENERGY BROKER): - continue home tamsulosin (allergy listed as weakness though is a chronic home med) Anemia of chronic disease 07/11/2011 Assessment & Plan (09/24/2023 1:13 AM CDT): Hgb 9.9 on admission. Recent b/l 7-8. - continue home iron supplementation Assessment & Plan (07/04/2023 3:02 PM CDT): Hgb of 10. Likely hemoconcentrated on admit. Upon review, Hgb around 8.5 since 05/18 but prior to that was around 10-11. No signs of active bleed. On iron supplements at home. B12 722 - Continue daily iron - Hgb stable 7.9 Assessment & Plan (06/20/2023 5:07 PM CDT): Hgb of 8.1, MCV 103.9. Upon review Hgb around 8.5 since 05/18 but prior to that was around 10-11. No signs of active bleed. On iron supplements at home. B12 722 - Monitor CBC - Check retics, Fe panel GERD (gastroesophageal reflux disease) 1 Assessment & Plan (06/29/2023 8:39 AM CDT): - Pantopraxole 40mg daily continued Assessment & Plan (06/20/2023 4:42 PM CDT): -Continue home protonix Assessment & Plan (03/20/2023 8:30 PM ENERGY BROKER): -PPI Insomnia 04/01/2010 Generalized anxiety disorder 05/17/2009 Occlusion and stenosis of bilateral carotid roz vignesh 10/29/2008 Resolved Problems Problem Noted Date Diagnosed Date Resolved Date Aspiration into lower respiratory tract 07/02/2023 07/04/2023 Assessment & Plan (07/03/2023 3:46 PM CDT): CXR from admit with bilateral opacities L>R concerning for aspiration vs atelectasis. Denies cough, difficulty swallowing. -Repeat CXR showed unchanged opacities -CONVEYOR MONITOR eval with no signs of aspiration -Monitor resp status Hypercalcemia 06/27/2023 06/30/2023 Assessment & Plan (06/29/2023 8:32 AM CDT): Suspect 2/2 dehydration. Calcium 10.6 on admission. PTH 81, Vit D 60 RESOLVED - Serum Calcium now 9.8mg/dL - IVF NS 100cc/hr - Daily Calcium Urinary tract infection with hematuria, site unspecified 06/20/2023 06/20/2023 Urinary tract infection with out hematuria, site unspecified 12/02/2022 06/30/2023 Assessment & Plan (06/29/2023 8:46 AM CDT): Patient has hx of recurrent UTI, most recently on 06/19 and 06/08 with +UA however both urine cultures indicative of contamination. Developed visual hallucination, which granddaughter state is usually occurs when he has a UTI. UA today 2+ leuks, negative nitrite, 21-50 WBC, 1+ yeast. Given 1x ceftriaxone. Chronic condom cath use d/t urinary incontinence. - Exchange condom cath; Ucx Insignificant Growth. -Ceftriaxone discontinued per ID Stewardship Team. 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 02/15/2015 11/16/2020 Intracranial hemorrhage 12/25/201411/02 Overview (11/16/2020): Not noted on Ct head 05/2020 Risk for falls 08/19/2012 06/20/2023 Diabetes mellitus type II, c ontrolled, with no complications ([facility]) 08/19/2012 11/16/2020 Vitamin D deficiency 06/30/2011 024 Leucopenia 10/31/2010 11/16/2020 Hypertension 05/17/2009 07/02/2023 Assessment & Plan (07/06/2023 1:05 PM CDT): - Home Amlodipine 5mg, Carvedilol 6.25mg - 06/29 Held Meds as soft blood pressure ( 95/62) on admission, resumed 07/04, tolerating well Assessment & Plan (06/22/2023 11:37 AM CDT): -cont amlodipine, reduce dose of Coreg given bradycardia Assessment & Plan (06/07/2023 9:37 AM CDT): Resume home meds Assessment & Plan (05/20/2023 10:50 AM CDT): Controlled on Coreg and Norvasc Assessment & Plan (03/21/2023 11:40 AM ENERGY BROKER): History of significant orthostatic hypotension requiring discontinuation of anti-HTN medications. - Continue home metoprolol Cerebrovascular accident (CVA) 05/17/2009 11/16/2020 Obstructive sleep apnea 11/25/200806/02 Assessment & Plan (06/20/2023 4:46 PM CDT): -CPAP at night Immunizations Immunization Administration Dates Next Due H1N1 Inj Preservative Free 02/15/2009 INFLUENZA [id number] 12/02/2013 Influenza, Quadrivalent, Hig h Dose, Preservative Free, Intrr 12/07/2022 Influenza, Quadrivalent, Rec ombinant, Egg Free, Preservative Free, Intramuscular 01/02/2018 Influenza, Trivalent, Adjuva nted, Intramuscular 01/11/2018 Influenza, Trivalent, High D ose, Split, Preservative Free, Intramuscular 12/02/2016,12/18/2015,12/21/2014,11/28 Influenza, Trivalent, IM (MDV) 4,12/18/2012,11/20/2011,11/13,11/24/2009,12/10/2008,12/20/2007 ,01/14/2007,01/15/2006,12/20/2004,12/02,02/19/2000,12/21/1998 Influenza, Unspecified 12/03/2016,12/02/2014 Pneumococcal Conjugate PCV 13 12/03/2016, 017,12/24/2013 Pneumococcal Conjugate, Unspecified 12/02/2014 Pneumococcal Polysaccharide PPV23 11/11/2014, Td, adsorbed 12/24/2013,07/14/2005 Tdap 09/22/2017 Tetanus toxoid, adsorbed 12/24/2013 Varicella 03/04/2009 Varicella Zoster Immune Globulin 03/30/2009 Social History Tobacco Use Types Packs/Day Years Used Date Smoking Tobacco: Former Smokeless Tobacco: Never Tobacco Cessation:Counseling Given: Not Answered Applyfulities Answer Date Recorded In the past 12 months has [employer], gas, oil, or water [employer] threatened to shut off services in your home? No 04/08/2024 Social Connection and Isolat ion Panel [NHANES] Answer Date Recorded In a typical week, how many times do you talk on the phone with family, friends, or neighbors? More than three times a week 04/08/2024 How often do you get togethe r with friends or relatives? More than three times a week 04/08/2024 How often do you attend chur ch or baptist services? Never 04/08/2024 Do you belong to any clubs o r organizations such as scientology groups, unions, fraternal or athletic groups, or school groups? No 04/08/2024 How often do you attend meet ings of the clubs or organizations you belong to? Never 04/08/2024 Are you , , di vorced, , never , or living with a partner? 04/08/2024 Overall Financial Resource Strain (CARDIA) Answe r Date Recorded How hard is it for you to pa y for the very basics like food, housing, medical care, and heating? Not hard at all 04/08/2024 PHQ-2 Answer Date Recorded PHQ-2 Total Score (If total score is 3 or more points, staff should administer the PHQ-9) 0 01/24/2024 [facility] - Occupational Stress Questionnaire Answer Date Recorded Do you feel stress - tense, restless, nervous, or anxious, or unable to sleep at night because your mind is troubled all the time - these days? Patient unable to answer 01/23/2024 Exercise Vital Sign Answer Date Recorde d On average, how many days pe r week do you engage in moderate to strenuous exercise (like a brisk walk)? 0 days 01/23/2024 On average, how many minutes do you engage in exercise at this level? 0 min 01/23/2024 Hunger Vital Sign Answer Date Recorded Within the past 12 months, y ou worried that your food would run out before you got the money to buy more. Never true 04/08/19 25 Within the past 12 months, t he food you bought just didn't last and you didn't have money to get more. Never true 04/08/2024 PRAPARE - Transportation Answer Date Re corded In the past 12 months, has l ack of transportation kept you from medical appointments or from getting medications? No 07/2024 In the past 12 months, has l ack of transportation kept you from meetings, work, or from getting things needed for daily living? No 04/08/2024 Housing Stability Vital Sign Answer Marquis e Recorded In the last 12 months, was t here a time when you were not able to pay the mortgage or rent on time? No 06/28/2023 In the last 12 months, how many places have you lived? 1 06/28/2023 In the last 12 months, was t here a time when you did not have a steady place to sleep or slept in a residential (including now)? No 06/28/2023 Housing Stability Vital Sign Answer Marquis e Recorded In the last 12 months, was t here a time when you were not able to pay the mortgage or rent on time? No 04/08/2024 In the past 12 months, how m any times have you moved where you were living? 0 04/08/2024 At any time in the past 12 m [facility], were you homeless or living in a residential (including now)? No 04/08/2024 Personal Safety Answer Date Recorded Have you ever been in or are you currently in a harmful physical or emotional relationship or is someone making you feel afraid or unsafe? Denies 04/07/2024 Sex and Gender Information Value Date Recorded Sex Assigned at Not on file Legal Sex Male 5:18 AM ENERGY BROKER Gender Identity Not on file Sexual Orientation Not on file Last Filed Vital Signs Vital Sign Reading Time Taken Comments Blood Pressure 128/68 04/09/2024 5:52 PM ENERGY BROKER Pulse 65 04/09/2024 5:52 PM ENERGY BROKER Temperature 36.7 C (98.1 F) 04/09/2024 5:52 PM ENERGY BROKER Respiratory Rate 18 04/09/2024 5:52 PM ENERGY BROKER Oxygen Saturation 100% 04/09/2024 5:52 PM ENERGY BROKER Inhaled Oxygen Concentration - - Weight 73.4 kg (161 lb 13.1 oz) 04/07/2024 8:18 PM ENERGY BROKER Height 182.9 cm (6' 0.01 ) 04/07/2024 7:15 PM CS T Body Mass Index 21.94 04/07/2024 7:15 PM ENERGY BROKER Plan of Treatment Not on file Procedures Procedure Name Priority Date/Time Associated Diagnosis Comments POCT GLUCOSE DEVICE Routine 04/09/2024 4 :27 PM ENERGY BROKER POCT GLUCOSE DEVICE Routine 04/09/2024 1 1:21 AM ENERGY BROKER EGFR Timed 04/09/2024 10:36 AM ENERGY BROKER BASIC METABOLIC PANEL Timed 04/09/2024 10:36 AM ENERGY BROKER POCT GLUCOSE DEVICE Routine 04/09/2024 7 :19 AM ENERGY BROKER POCT GLUCOSE DEVICE Routine 04/09/2024 4 :37 AM ENERGY BROKER POCT GLUCOSE DEVICE Routine 04/09/2024 1 :01 AM ENERGY BROKER EGFR Routine 04/08/2024 11:11 PM ENERGY BROKER DIFFERENTIAL AUTO Routine 04/08/2024 11: 11 PM ENERGY BROKER CBC WITH AUTO DIFFERENTIAL Routine 04/08/2024 11:11 PM ENERGY BROKER BASIC METABOLIC PANEL Routine 04/08/2024 11:11 PM ENERGY BROKER POCT GLUCOSE DEVICE Routine 04/08/2024 8 :13 PM ENERGY BROKER POCT GLUCOSE DEVICE Routine 04/08/2024 4 :39 PM ENERGY BROKER POCT GLUCOSE DEVICE Routine 04/08/2024 1 1:34 AM ENERGY BROKER CONVEYOR MONITOR EVALUATE AND TREAT Routine 04/08/2024 10:47 AM ENERGY BROKER POCT GLUCOSE DEVICE Routine 04/08/2024 7 :11 AM ENERGY BROKER POCT GLUCOSE DEVICE Routine 04/08/2024 5 :04 AM ENERGY BROKER POCT GLUCOSE DEVICE Routine 04/08/2024 1 :46 AM ENERGY BROKER EGFR Routine 04/07/2024 11:19 PM ENERGY BROKER DIFFERENTIAL AUTO Timed 04/07/2024 11: 19 PM ENERGY BROKER CBC WITH AUTO DIFFERENTIAL Timed 04/07/2024 11:19 PM ENERGY BROKER PHOSPHORUS Timed 04/07/2024 11:19 PM ENERGY BROKER MAGNESIUM Timed 04/07/2024 11:19 PM ENERGY BROKER BASIC METABOLIC PANEL Routine 04/07/2024 11:19 PM ENERGY BROKER POCT GLUCOSE DEVICE Routine 04/07/2024 7 :43 PM ENERGY BROKER EGFR Timed 04/07/2024 6:21 PM ENERGY BROKER COMPREHENSIVE METABOLIC PANEL Timed 04/07/2024 6:21 PM ENERGY BROKER CBC WITHOUT DIFFERENTIAL Timed 04/07/2024 6:21 PM ENERGY BROKER POCT GLUCOSE DEVICE Routine 04/07/2024 2 :11 PM ENERGY BROKER US KIDNEY COMPLETE IP Routine 04/07/2024 11 :28 AM ENERGY BROKER POCT GLUCOSE DEVICE Routine 04/07/2024 8 :12 AM ENERGY BROKER POCT GLUCOSE DEVICE Routine 04/07/2024 4 :56 AM ENERGY BROKER URINALYSIS, MICROSCOPIC ONLY STAT 04/06/2024 9:03 PM ENERGY BROKER URINE CULTURE STAT 04/06/2024 9:03 PM ENERGY BROKER URINALYSIS AND REFLEX TO MICROSCOPIC AND CULTURE STAT 04/06/2024 9:03 PM ENERGY BROKER XR CHEST 1 VIEW ED 04/06/2024 7:58 PM ENERGY BROKER ECG 12-LEAD Routine 04/06/2024 7:35 PM ENERGY BROKER RESPIRATORY PATHOGEN PANEL Routine 04/06/2024 7:08 PM ENERGY BROKER POCT GLUCOSE DEVICE Routine 04/06/2024 6 :[address] HEAD WO CONTRAST ED 04/06/2024 5 :34 PM ENERGY BROKER EGFR STAT 04/06/2024 5:14 PM ENERGY BROKER DIFFERENTIAL AUTO STAT 04/06/2024 5:1 4 PM ENERGY BROKER SEPSIS LACTATE WITH REFLEX STAT 04/06/2024 5:14 PM ENERGY BROKER COMPREHENSIVE METABOLIC PANEL STAT 04/06/2024 5:14 PM ENERGY BROKER CBC WITH AUTO DIFFERENTIAL STAT 04/06/2024 5:14 PM ENERGY BROKER BLOOD CULTURE STAT 04/06/2024 5:14 PM ENERGY BROKER POCT GLUCOSE DEVICE Routine 04/01/2024 1 :37 PM ENERGY BROKER POCT GLUCOSE DEVICE Routine 04/01/2024 5 :20 AM ENERGY BROKER POCT GLUCOSE DEVICE Routine 04/01/2024 2 :38 AM ENERGY BROKER POCT GLUCOSE DEVICE Routine 03/31/2024 9 :48 PM ENERGY BROKER POCT GLUCOSE DEVICE Routine 03/31/2024 5 :[address] ABDOMEN PELVIS W CONTRAST ED 03/31/2024 4:15 PM ENERGY BROKER URINALYSIS, MICROSCOPIC ONLY Routine 03/31/2024 2:21 PM ENERGY BROKER URINE CULTURE Routine 03/31/2024 2:21 PM ENERGY BROKER URINALYSIS AND REFLEX TO MICROSCOPIC AND CULTURE Routine 03/31/2024 2:21 PM ENERGY BROKER POCT GLUCOSE DEVICE Routine 03/31/2024 2 :12 PM ENERGY BROKER EGFR STAT 03/31/2024 2:07 PM ENERGY BROKER DIFFERENTIAL AUTO STAT 03/31/2024 2:0 7 PM ENERGY BROKER CBC WITH AUTO DIFFERENTIAL STAT 03/31/2024 2:07 PM ENERGY BROKER PROTIME-INR STAT 03/31/2024 2:07 PM ENERGY BROKER HEPATIC FUNCTION PANEL STAT 03/31/2024 2:07 PM ENERGY BROKER BASIC METABOLIC PANEL STAT 03/31/2024 2:07 PM ENERGY BROKER LIPID PANEL STAT 01/21/2024 8:23 PM ENERGY BROKER HEMOGLOBIN A1C Routine 11/29/2023 8:54 PM CDT ALBUMIN CREATININE RATIO, URINE Routine 03/21/2023 12:32 PM ENERGY BROKER from Last 3 Months or Most Recently Relevant to Health Maintenance Results * POCT glucose (04/09/2024 4:27 PM ENERGY BROKER) Glucose, POC 112 70 - 199 mg/dL Blood 04/09/2024 4:27 PM ENERGY BROKER 04/09/2024 4:27 PM ENERGY BROKER Johan Oliver MD LAB POCT ORDERABLES - DEV ICE Final Result Performing Organization Address [facility] Co de Phone Number [facility] [place] [address] * POCT glucose (04/09/2024 11:21 AM ENERGY BROKER) Glucose, POC 143 70 - 199 mg/dL Blood 04/09/2024 11:2 1 AM ENERGY BROKER 04/09/2024 11:21 AM ENERGY BROKER Johan Oliver MD LAB POCT ORDERABLES - DEV ICE Final Result Performing Organization Address [facility]/ZIP Co de Phone Number [facility] [place] [address] * (ABNORMAL) eGFR (04/09/2024 10:36 AM ENERGY BROKER) Pathologist [facility] eGFR 23(L) >=60 mL/min/1. 73 m2 Comment: Interpretive Data Reference Interval Normal >/= 90 mL/min/1.73m2 Mildly decreased* 60 - 89 mL/min/1.73m2 Mildly to moderately decreased 45 - 59 mL/min/1.73m2 Moderately to severely decreased 30 - 44 mL/min/1.73m2 Severely decreased 15 - 29 mL/min/1.73m2 Kidney Failure < 15 mL/min/1.73m2 *Relative to young adult level Estimated glomerular filtration rate is determined by the 2020 CKD-EPI equation recommended by the National Kidney Foundation (A Unifying Approach to GFR Estimation: Recommendations of the NKF-ASK Task Force on Reassessing the Inclusion of Race in Diagnosing Kidney Disease, JASN 2020). The CKD-EPI equation should not be used for patients with unstable renal function and has not been validated in children and those over 70. Current interpretive data was last reviewed 2021. Blood 04/09/2024 10:3 6 AM ENERGY BROKER 04/09/2024 11:00 AM ENERGY BROKER us Johan Oliver MD LAB BLOOD ORDERABLES Lis joyner Result [facility] [place] [address] * (ABNORMAL) Basic metabolic panel (04/09/2024 10:36 AM ENERGY BROKER) Pathologist [facility] Sodium 140 135 - 145 mmol/L Potassium, pl 3.7 3.3 - 4.9 mmol/L [facility] Chloride 110 97 - 110 mmol/L [facility] CO2 24 22 - 32 mmol/L [facility] Anion gap 6 2 - 15 mmol/L [facility] BUN 33(H) 6 - 25 mg/dL [facility] Creatinine 2.58(H) 0.80 - 1.30 mg/dL [facility] Glucose 133 70 - 199 mg/dL [facility] Comment: Interpretive Data Fasting glucose >/= 126 mg/dl is diagnostic for diabetes. Fasting is defined as no caloric intake for at least 8 hours. Fasting glucose between 100 mg/dl to 125 mg/dl is diagnostic of prediabetes. In a patient with classic symptoms of hyperglycemia or hyperglycemic crisis, a random glucose >/= 200 mg/dl is diagnostic for diabetes. In the absence of unequivocal hyperglycemia, results should be confirmed by repeat testing. The classification and Diagnosis of Diabetes Diabetes Care 2021; 46: S19-S40. Current interpretive data was last revised 2022. Calcium 8.9 8.5 - 10.3 mg/dL [facility] Blood 04/09/2024 10:3 6 AM ENERGY BROKER 04/09/2024 11:00 AM ENERGY BROKER Result [facility] Johan Oliver MD LAB BLOOD ORDERABLES Lis l Result Performing Organization Address City/[facility]/ZIP Co de Phone Number [facility] [place] [place] [address] * POCT glucose (04/09/2024 7:19 AM ENERGY BROKER) Glucose, POC 101 70 - 199 mg/dL Blood 04/09/2024 7:19 AM ENERGY BROKER 04/09/2024 7:19 AM ENERGY BROKER Result [facility] Johan Oliver MD LAB POCT ORDERABLES - DEV ICE Final Result Performing Organization Address City/[facility]/ZIP Co de Phone Number [facility] [place] [place] [address] * POCT glucose (04/09/2024 4:37 AM ENERGY BROKER) Glucose, POC 103 70 - 199 mg/dL Blood 04/09/2024 4:37 AM ENERGY BROKER 04/09/2024 4:37 AM ENERGY BROKER Johan Oliver MD LAB POCT ORDERABLES - DEV ICE Final Result [facility] [place] [place] [address] * POCT glucose (04/09/2024 1:01 AM ENERGY BROKER) Glucose, POC 124 70 - 199 mg/dL Blood 04/09/2024 1:01 AM ENERGY BROKER 04/09/2024 1:01 AM ENERGY BROKER Johan Oliver MD LAB POCT ORDERABLES - DEV ICE Final Result Performing Organization Address [facility]/RUST de Phone Number [facility] [place] [address] * (ABNORMAL) eGFR (04/08/2024 11:11 PM ENERGY BROKER) eGFR 22(L) >=60 mL/min/1. 73 m2 Comment: Interpretive Data Reference Interval Normal >/= 90 mL/min/1.73m2 Mildly decreased* 60 - 89 mL/min/1.73m2 Mildly to moderately decreased 45 - 59 mL/min/1.73m2 Moderately to severely decreased 30 - 44 mL/min/1.73m2 Severely decreased 15 - 29 mL/min/1.73m2 Kidney Failure < 15 mL/min/1.73m2 *Relative to young adult level Estimated glomerular filtration rate is determined by the 2020 CKD-EPI equation recommended by the National Kidney Foundation (A Unifying Approach to GFR Estimation: Recommendations of the NKF-ASK Task Force on Reassessing the Inclusion of Race in Diagnosing Kidney Disease, JASN 2020). The CKD-EPI equation should not be used for patients with unstable renal function and has not been validated in children and those over 70. Current interpretive data was last reviewed 2021. Blood 04/08/2024 11:1 1 PM ENERGY BROKER 04/08/2024 11:32 PM ENERGY BROKER Ling Farrell MD LAB BLOOD ORDERABLES Final Resul t [facility] [place] [address] * Differential, auto (04/08/2024 11:11 PM ENERGY BROKER) Neutrophil abs 3.0 1.5 - 6.5 K/cumm Imm gran abs 0.0 0.0 - 0.1 K/cumm [facility] Lymphocyte abs 1.3 0.8 - 3.3 K/cumm [facility] Monocyte abs 0.8 0.2 - 0.8 K/cumm [facility] Eosinophil abs 0.4 0.0 - 0.5 K/cumm [facility] Basophil abs 0.0 0.0 - 0.1 K/cumm [facility] Neutrophil pct 53.5 % [facility] Comment: Interpretive Data Percent cell count reference ranges are not reported, since discordance with absolute values may lead to misinterpretation of CBC data. Current Interpretive Data was last revised on 2017. Imm gran pct 0.7 % [facility] Comment: Interpretive Data Percent cell count reference ranges are not reported, since discordance with absolute values may lead to misinterpretation of CBC data. Current Interpretive Data was last revised on 2017. Lymphocyte pct 23.3 % [facility] Comment: Interpretive Data Percent cell count reference ranges are not reported, since discordance with absolute values may lead to misinterpretation of CBC data. Current Interpretive Data was last revised on 2017. Monocyte pct 14.6 % [facility] Comment: Interpretive Data Percent cell count reference ranges are not reported, since discordance with absolute values may lead to misinterpretation of CBC data. Current Interpretive Data was last revised on 2017. Eosinophil pct 7.2 % [facility] Comment: Interpretive Data Percent cell count reference ranges are not reported, since discordance with absolute values may lead to misinterpretation of CBC data. Current Interpretive Data was last revised on 2017. Basophil pct 0.7 % [facility] Comment: Interpretive Data Percent cell count reference ranges are not reported, since discordance with absolute values may lead to misinterpretation of CBC data. Current Interpretive Data was last revised on 2017. Blood 04/08/2024 11:1 1 PM ENERGY BROKER 04/08/2024 11:34 PM ENERGY BROKER Johan Oliver MD LAB BLOOD ORDERABLES Lis l Result Performing Organization Address [facility] Co de Phone Number [facility] [place] [address] * (ABNORMAL) CBC with auto differential (04/08/2024 11:11 PM ENERGY BROKER) Pathologist [facility] WBC 5.5 3.8 - 9.9 K/cumm Hgb 8.7(L) 13.0 - 17.5 g/dL [facility] Hct 26.7(L) 38.9 - 50.3 % [facility] Plt 110(L) 150 - 400 K/cumm [facility] MPV 10.0 9.1 - 12.3 fL [facility] RBC 2.76(L) 4.30 - 5.80 M/cumm [facility] MCV 96.7(H) 81.3 - 96.4 fL [facility] MCH 31.5 27.1 - 33.3 pg [facility] MCHC 32.6 32.3 - 35.7 g/dL [facility] RDW CV 13.7 11.1 - 14.9 % [facility] RDW SD 48.7(H) 35.7 - 48.1 fL [facility] NRBC abs 0.00 0.00 - 0.01 K/cumm [facility] Blood 04/08/2024 11:1 1 PM ENERGY BROKER 04/08/2024 11:34 PM ENERGY BROKER Johan Oliver MD LAB BLOOD ORDERABLES Lis joyner Result Performing Organization Address [facility] Co de Phone Number [facility] [place] [address] * (ABNORMAL) Basic metabolic panel (04/08/2024 11:11 PM ENERGY BROKER) Sodium 139 135 - 145 mmol/L Potassium, pl 4.0 3.3 - 4.9 mmol/L [facility] Chloride 108 97 - 110 mmol/L [facility] CO2 25 22 - 32 mmol/L [facility] Anion gap 6 2 - 15 mmol/L [facility] BUN 34(H) 6 - 25 mg/dL [facility] Creatinine 2.73(H) 0.80 - 1.30 mg/dL [facility] Glucose 126 70 - 199 mg/dL [facility] Comment: Interpretive Data Fasting glucose >/= 126 mg/dl is diagnostic for diabetes. Fasting is defined as no caloric intake for at least 8 hours. Fasting glucose between 100 mg/dl to 125 mg/dl is diagnostic of prediabetes. In a patient with classic symptoms of hyperglycemia or hyperglycemic crisis, a random glucose >/= 200 mg/dl is diagnostic for diabetes. In the absence of unequivocal hyperglycemia, results should be confirmed by repeat testing. The classification and Diagnosis of Diabetes Diabetes Care 202; 46: S19-S40. Current interpretive data was last revised 2022. Calcium 8.8 8.5 - 10.3 mg/dL [facility] Blood 04/08/2024 11:1 1 PM ENERGY BROKER 04/08/2024 11:32 PM ENERGY BROKER us Ling Farrell MD LAB BLOOD ORDERABLES Final Resul t [facility] [place] [address] * POCT glucose (04/08/2024 8:13 PM ENERGY BROKER) Glucose, POC 156 70 - 199 mg/dL Blood 04/08/2024 8:13 PM ENERGY BROKER 04/08/2024 8:13 PM ENERGY BROKER us Johan Oliver MD LAB POCT ORDERABLES - DEV ICE Final Result Performing Organization Address [facility]/ZIP Co de Phone Number [facility] [place] [address] * POCT glucose (04/08/2024 4:39 PM ENERGY BROKER) Glucose, POC 182 70 - 199 mg/dL Blood 04/08/2024 4:39 PM ENERGY BROKER 04/08/2024 4:39 PM ENERGY BROKER Johan Oliver MD LAB POCT ORDERABLES - DEV ICE Final Result Performing Organization Address [facility] [place] [address] * POCT glucose (04/08/2024 11:34 AM ENERGY BROKER) Glucose, POC 185 70 - 199 mg/dL Blood 04/08/2024 11:3 4 AM ENERGY BROKER 04/08/2024 11:34 AM ENERGY BROKER Johan Oliver MD LAB POCT ORDERABLES - DEV ICE Final Result Performing Organization Address [facility]/[place] [address] * CONVEYOR MONITOR Evaluation and Treatment (04/08/2024 10:47 AM ENERGY BROKER) Narrative Regina Titus, CONVEYOR MONITOR - 04/08/2024 10:47 AM ENERGY BROKER Regina Titus, CONVEYOR MONITOR 04/08/2024 2:45 PM Speech-Language Pathology: Clinical Bedside Swallow [facility] 88 y.o. male with a hx of vascular dementia, recurrent UTI, CKD (BL 2.5-2.7), Afib, T2DM who presented for AMS. CONVEYOR MONITOR hx: 07/03/23 bedside swallow at [facility] recommended regular/thin Respiratory/Intubation Status: room air Imaging: CXR 2/3: Mild bilateral lower lobe airspace opacities likely reflecting atelectasis versus sequela of aspiration. Small left and possible trace right pleural effusion. hCT 2/3: No acute intracranial process. Precautions: Fall PLOF:Baseline AOx2 & Bedbound Current Diet Order:Regular Baseline Diet: Regular General Information Karl Thompson 04/08/24 General Observations: Pt was seen sitting upright in bed. Pleasant and agreeable to evaluation. Pain Score: 0 - No pain If pain >4, was RN notified? N/A Patient Stated Goal/Comments: I'm hungry Clinical Impression & Professional Recommendations Diet Solids Recommendation: Regular Diet Liquids Recommendations: Thin/regular Recommended Form of Medications: As tolerated Postural Recommendations: Upright Assistance with feeding/swallowing: Assist with aggressive oral hygiene prior to po Specialty Instructions: good oral care 2-3x per day Dysphagia Diagnosis: No suspected dysphagia, oral-pharyngeal function appears WFL Overall Clinical Impression/Additional Information: Oral mechanism examination unremarkable. Pt presented with trials of ice chips, thin liquids, puree, and solid consistencies. No overt signs of aspiration observed with all PO intake. Suspect oral and pharyngeal swallow function are grossly intact. Recommend pt remain on current diet of regular solids and thin liquids. No further CONVEYOR MONITOR indicated at this time. Please refer if pt's status changes. Assessment Details & Results Consistencies Administered: Ice chips, Thin liquids, Purees, Solids MASA: Forbes Assessment of Swallowing Ability (MASA) Alertness: Alert Cooperation: Cooperative Auditory Comprehension: Follows ordinary conversation with little difficulty Respiration: Chest clear Respiratory Rate (for swallow): Able to control breath rate for swallow Aphasia: No abnormality detected Apraxia: No abnormality detected Dysarthria: No abnormality detected Saliva: No abnormality detected Lip Seal: No abnormality detected Tongue Movement: Mild impairment in range Tongue Strength: Minimal weakness Tongue Coordination: Mild incoordination Gag: No gag (did not assess) Palate: No abnormality detected Cough Reflex: No deficit noted Voluntary Cough: No abnormality detected Voice: No abnormality detected Trach: No trach Oral Preparation: No deficits noted Bolus Clearance: Significant clearance, minimal residue Oral Transit: Delay > 1 second Pharyngeal Phase: Immediate laryngeal elevation Pharyngeal Response: No deficits noted MASA Score: 184 Dysphagia: No dysphagia detected (178-200) Aspiration Risk: No aspiration risk (170-200) Plan CONVEYOR MONITOR Frequency of Services during current admission: Discharge from this Service CONVEYOR MONITOR Recommendation (Add'l Services): No further CONVEYOR MONITOR indicated Next Visit Plan:No further ST warranted Please reference care plan for treatment goals, if indicated. Discharge Summary Statement If this is the last swallow therapy visit, this serves as the discharge summary. Rivas RIVAS CONVEYOR MONITOR ORDERABLES Final Result * POCT glucose (04/08/2024 7:11 AM ENERGY BROKER) Glucose, POC 116 70 - 199 mg/dL Blood 04/08/2024 7:11 AM ENERGY BROKER 04/08/2024 7:11 AM ENERGY BROKER Johan Oliver MD LAB POCT ORDERABLES - DEV ICE Final Result Performing Organization Address City/[facility] Co de Phone Number [facility] [place] [address] * POCT glucose (04/08/2024 5:04 AM ENERGY BROKER) Glucose, POC 113 70 - 199 mg/dL Blood 04/08/2024 5:04 AM ENERGY BROKER 04/08/2024 5:04 AM ENERGY BROKER Ling Farrell MD LAB POCT ORDERABLES - DEVICE Fin al Result Performing Organization Address [facility] Co de Phone Number [facility] [place] [address] * POCT glucose (04/08/2024 1:46 AM ENERGY BROKER) Glucose, POC 133 70 - 199 mg/dL Blood 04/08/2024 1:46 AM ENERGY BROKER 04/08/2024 1:46 AM ENERGY BROKER Ling Farrell MD LAB POCT ORDERABLES - DEVICE Fin al Result Performing Organization Address [facility] Co de Phone Number [facility] [place] [address] * (ABNORMAL) eGFR (04/07/2024 11:19 PM ENERGY BROKER) eGFR 28(L) >=60 mL/min/1. 73 m2 Comment: Interpretive Data Reference Interval Normal >/= 90 mL/min/1.73m2 Mildly decreased* 60 - 89 mL/min/1.73m2 Mildly to moderately decreased 45 - 59 mL/min/1.73m2 Moderately to severely decreased 30 - 44 mL/min/1.73m2 Severely decreased 15 - 29 mL/min/1.73m2 Kidney Failure < 15 mL/min/1.73m2 *Relative to young adult level Estimated glomerular filtration rate is determined by the 2020 CKD-EPI equation recommended by the National Kidney Foundation (A Unifying Approach to GFR Estimation: Recommendations of the NKF-ASK Task Force on Reassessing the Inclusion of Race in Diagnosing Kidney Disease, JASN 2020). The CKD-EPI equation should not be used for patients with unstable renal function and has not been validated in children and those over 70. Current interpretive data was last reviewed 2021. Blood 04/07/2024 11:1 9 PM ENERGY BROKER 04/08/2024 12:32 AM ENERGY BROKER us Ling Farrell MD LAB BLOOD ORDERABLES Final Resul t [facility] [place] [address] * Differential, auto (04/07/2024 11:19 PM ENERGY BROKER) Neutrophil abs 4.7 1.5 - 6.5 K/cumm Imm gran abs 0.1 0.0 - 0.1 K/cumm [facility] Lymphocyte abs 0.8 0.8 - 3.3 K/cumm [facility] Monocyte abs 0.6 0.2 - 0.8 K/cumm [facility] Eosinophil abs 0.3 0.0 - 0.5 K/cumm [facility] Basophil abs 0.0 0.0 - 0.1 K/cumm [facility] Neutrophil pct 72.6 % [facility] Comment: Interpretive Data Percent cell count reference ranges are not reported, since discordance with absolute values may lead to misinterpretation of CBC data. Current Interpretive Data was last revised on 2017. Imm gran pct 0.8 % [facility] Comment: Interpretive Data Percent cell count reference ranges are not reported, since discordance with absolute values may lead to misinterpretation of CBC data. Current Interpretive Data was last revised on 2017. Lymphocyte pct 11.7 % [facility] Comment: Interpretive Data Percent cell count reference ranges are not reported, since discordance with absolute values may lead to misinterpretation of CBC data. Current Interpretive Data was last revised on 2017. Monocyte pct 9.7 % [facility] Comment: Interpretive Data Percent cell count reference ranges are not reported, since discordance with absolute values may lead to misinterpretation of CBC data. Current Interpretive Data was last revised on 2017. Eosinophil pct 4.6 % [facility] Comment: Interpretive Data Percent cell count reference ranges are not reported, since discordance with absolute values may lead to misinterpretation of CBC data. Current Interpretive Data was last revised on 2017. Basophil pct 0.6 % [facility] Comment: Interpretive Data Percent cell count reference ranges are not reported, since discordance with absolute values may lead to misinterpretation of CBC data. Current Interpretive Data was last revised on 2017. Blood 04/07/2024 11:1 9 PM ENERGY BROKER 04/08/2024 12:32 AM ENERGY BROKER us Ling Farrell MD LAB BLOOD ORDERABLES Final Resul t [facility] [place] [address] * (ABNORMAL) CBC with auto differential (04/07/2024 11:19 PM ENERGY BROKER) WBC 6.5 3.8 - 9.9 K/cumm Hgb 9.5(L) 13.0 - 17.5 g/dL [facility] Hct 29.6(L) 38.9 - 50.3 % [facility] Plt 109(L) 150 - 400 K/cumm [facility] MPV 11.1 9.1 - 12.3 fL [facility] RBC 2.98(L) 4.30 - 5.80 M/cumm [facility] MCV 99.3(H) 81.3 - 96.4 fL [facility] MCH 31.9 27.1 - 33.3 pg [facility] MCHC 32.1(L) 32.3 - 35.7 g/dL [facility] RDW CV 13.4 11.1 - 14.9 % [facility] RDW SD 49.1(H) 35.7 - 48.1 fL [facility] NRBC abs 0.00 0.00 - 0.01 K/cumm [facility] Blood 04/07/2024 11:1 9 PM ENERGY BROKER 04/08/2024 12:32 AM ENERGY BROKER Ling Farrell MD LAB BLOOD ORDERABLES Final Resul t Performing Organization Address [facility] Co de Phone Number [facility] [place] [address] * Phosphorus (04/07/2024 11:19 PM ENERGY BROKER) Phosphorus, pl 2.5 2.3 - 4.5 mg/dL Blood 04/07/2024 11:1 9 PM ENERGY BROKER 04/08/2024 12:32 AM ENERGY BROKER Ling Farrell MD LAB BLOOD ORDERABLES Final Resul t Performing Organization Address [facility] Co de Phone Number [facility] [place] [address] * Magnesium (04/07/2024 11:19 PM ENERGY BROKER) Magnesium 2.1 1.4 - 2.5 mg/dL Blood 04/07/2024 11:1 9 PM ENERGY BROKER 04/08/2024 12:32 AM ENERGY BROKER Ling Farrell MD LAB BLOOD ORDERABLES Final Resul t [facility] [place] [address] * (ABNORMAL) Basic metabolic panel (04/07/2024 11:19 PM ENERGY BROKER) Sodium 141 135 - 145 mmol/L Potassium, pl 3.6 3.3 - 4.9 mmol/L [facility] Chloride 111(H) 97 - 110 mmol/L [facility] CO2 24 22 - 32 mmol/L [facility] Anion gap 6 2 - 15 mmol/L [facility] BUN 30(H) 6 - 25 mg/dL [facility] Creatinine 2.23(H) 0.80 - 1.30 mg/dL [facility] Glucose 133 70 - 199 mg/dL [facility] Comment: Interpretive Data Fasting glucose >/= 126 mg/dl is diagnostic for diabetes. Fasting is defined as no caloric intake for at least 8 hours. Fasting glucose between 100 mg/dl to 125 mg/dl is diagnostic of prediabetes. In a patient with classic symptoms of hyperglycemia or hyperglycemic crisis, a random glucose >/= 200 mg/dl is diagnostic for diabetes. In the absence of unequivocal hyperglycemia, results should be confirmed by repeat testing. The classification and Diagnosis of Diabetes Diabetes Care 2021; 46: S19-S40. Current interpretive data was last revised 2022. Calcium 8.9 8.5 - 10.3 mg/dL [facility] Blood 04/07/2024 11:1 9 PM ENERGY BROKER 04/08/2024 12:32 AM ENERGY BROKER Ling Farrell MD LAB BLOOD ORDERABLES Final Resul t [facility] [place] [address] * POCT glucose (04/07/2024 7:43 PM ENERGY BROKER) Glucose, POC 115 70 - 199 mg/dL Blood 04/07/2024 7:43 PM ENERGY BROKER 04/07/2024 7:43 PM ENERGY BROKER Ling Farrell MD LAB POCT ORDERABLES - DEVICE Fin al Result Performing Organization Address [facility] Co de Phone Number [facility] [place] [address] * (ABNORMAL) eGFR (04/07/2024 6:21 PM ENERGY BROKER) [facility] eGFR 29(L) >=60 mL/min/1. 73 m2 Comment: Interpretive Data Reference Interval Normal >/= 90 mL/min/1.73m2 Mildly decreased* 60 - 89 mL/min/1.73m2 Mildly to moderately decreased 45 - 59 mL/min/1.73m2 Moderately to severely decreased 30 - 44 mL/min/1.73m2 Severely decreased 15 - 29 mL/min/1.73m2 Kidney Failure < 15 mL/min/1.73m2 *Relative to young adult level Estimated glomerular filtration rate is determined by the 2020 CKD-EPI equation recommended by the National Kidney Foundation (A Unifying Approach to GFR Estimation: Recommendations of the NKF-ASK Task Force on Reassessing the Inclusion of Race in Diagnosing Kidney Disease, JASN 2020). The CKD-EPI equation should not be used for patients with unstable renal function and has not been validated in children and those over 70. Current interpretive data was last reviewed 2021. Blood 04/07/2024 6:21 PM ENERGY BROKER 04/07/2024 6:34 PM ENERGY BROKER us Rivas RIVAS LAB BLOOD ORDERABLES Final R esult Performing Organization Address [facility] Co de Phone Number [facility] [place] [address] * (ABNORMAL) CBC without differential (04/07/2024 6:21 PM ENERGY BROKER) [facility] WBC 7.0 3.8 - 9.9 K/cumm Hgb 11.4(L) 13.0 - 17.5 g/dL [facility] Hct 35.7(L) 38.9 - 50.3 % [facility] Plt 66(L) 150 - 400 K/cumm [facility] MPV 12.9(H) 9.1 - 12.3 fL [facility] RBC 3.59(L) 4.30 - 5.80 M/cumm [facility] MCV 99.4(H) 81.3 - 96.4 fL [facility] MCH 31.8 27.1 - 33.3 pg [facility] MCHC 31.9(L) 32.3 - 35.7 g/dL [facility] RDW CV 13.4 11.1 - 14.9 % [facility] RDW SD 49.1(H) 35.7 - 48.1 fL [facility] NRBC abs 0.00 0.00 - 0.01 K/cumm [facility] Blood 04/07/2024 6:21 PM ENERGY BROKER 04/07/2024 6:34 PM ENERGY BROKER us Rivas RIVAS LAB BLOOD ORDERABLES Final R esult Performing Organization Address [facility] Co de Phone Number [facility] [place] [address] * (ABNORMAL) Comprehensive metabolic panel (04/07/2024 6:21 PM ENERGY BROKER) Sodium 140 135 - 145 mmol/L Potassium, pl 4.1 3.3 - 4.9 mmol/L [facility] Chloride 110 97 - 110 mmol/L [facility] CO2 24 22 - 32 mmol/L [facility] Anion gap 6 2 - 15 mmol/L [facility] BUN 28(H) 6 - 25 mg/dL [facility] Creatinine 2.15(H) 0.80 - 1.30 mg/dL [facility] Glucose 108 70 - 199 mg/dL [facility] Comment: Interpretive Data Fasting glucose >/= 126 mg/dl is diagnostic for diabetes. Fasting is defined as no caloric intake for at least 8 hours. Fasting glucose between 100 mg/dl to 125 mg/dl is diagnostic of prediabetes. In a patient with classic symptoms of hyperglycemia or hyperglycemic crisis, a random glucose >/= 200 mg/dl is diagnostic for diabetes. In the absence of unequivocal hyperglycemia, results should be confirmed by repeat testing. The classification and Diagnosis of Diabetes Diabetes Care 2021; 46: S19-S40. Current interpretive data was last revised 2022. Calcium 9.3 8.5 - 10.3 mg/dL [facility] Bilirubin, total 0.4 0.1 - 1.2 mg/dL [facility] Protein, pl 6.2(L) 6.5 - 8.5 g/dL [facility] Albumin 3.1(L) 3.5 - 5.0 g/dL [facility] Alk phos 90 40 - 130 Units/L [facility] ALT 7 7 - 55 Units/L [facility] AST 13 10 - 50 Units/L [facility] Blood 04/07/2024 6:21 PM ENERGY BROKER 04/07/2024 6:34 PM ENERGY BROKER Rivas RIVAS LAB BLOOD ORDERABLES Final R esult Performing Organization Address [facility] Co de Phone Number [facility] [place] [address] * POCT glucose (04/07/2024 2:11 PM ENERGY BROKER) Glucose, POC 99 70 - 199 mg/dL Blood 04/07/2024 2:11 PM ENERGY BROKER 04/07/2024 2:11 PM ENERGY BROKER Anthony Tellez MD LAB POCT ORDERABLES - DEVICE Fin al Result Performing Organization Address [facility] Co de Phone Number [facility] [place] [address] * US Kidney Complete (04/07/2024 11:28 AM ENERGY BROKER) Anatomical Region Laterality Modality Kidney N/A Ultrasound 04/07/2024 11:2 6 AM ENERGY BROKER Impressions 04/07/2024 11:44 AM ENERGY BROKER 1. Normal parenchymal echogenicity. No hydronephrosis. 2. Nonobstructing left lower pole renal calculus, unchanged from recent prior CT. Dictated by: Devin Montes M.D. The radiology attending physician has personally reviewed this study, and had reviewed and/or edited this written report and agrees with it. Electronically signed by: Morteza Ignacio M.D. Narrative 04/07/2024 11:44 AM ENERGY BROKER EXAMINATION: COMPLETE RENAL SONOGRAM HISTORY: Abdominal pain and urinary tract infection COMPARISON: CT dated 03/31/2024 FINDINGS: Kidneys: The echogenicity of both kidneys is normal. The kidneys are normal in size. The right kidney measures 9.6 cm in length, and the left, 9.4 cm in length. There is no hydronephrosis in either kidney. There is a nonobstructing elongated 1 cm left lower pole renal calculus. Bladder: The urinary bladder is normal. There is distended rectum posterior to the bladder which is partially imaged in keeping with patient's known stool ball. Procedure Note Morteza Ignacio MD - 04/07/2024 EXAMINATION: COMPLETE RENAL SONOGRAM HISTORY: Abdominal pain and urinary tract infection COMPARISON: CT dated 03/31/2024 FINDINGS: Kidneys: The echogenicity of both kidneys is normal. The kidneys are normal in size. The right kidney measures 9.6 cm in length, and the left, 9.4 cm in length. There is no hydronephrosis in either kidney. There is a nonobstructing elongated 1 cm left lower pole renal calculus. Bladder: The urinary bladder is normal. There is distended rectum posterior to the bladder which is partially imaged in keeping with patient's known stool ball. IMPRESSION: 1. Normal parenchymal echogenicity. No hydronephrosis. 2. Nonobstructing left lower pole renal calculus, unchanged from recent prior CT. Dictated by: Devin Montes M.D. The radiology attending physician has personally reviewed this study, and had reviewed and/or edited this written report and agrees with it. Electronically signed by: Morteza Ignacio M.D. us Rivas RIVAS IMG US PROCEDURES Final Resu lt * POCT glucose (04/07/2024 8:12 AM ENERGY BROKER) Glucose, POC 106 70 - 199 mg/dL Blood 04/07/2024 8:12 AM ENERGY BROKER 04/07/2024 8:12 AM ENERGY BROKER Anthony Tellez MD LAB POCT ORDERABLES - DEVICE Fin al Result Performing Organization Address [facility] de Phone Number [facility] [place] [address] * POCT glucose (04/07/2024 4:56 AM ENERGY BROKER) Glucose, POC 116 70 - 199 mg/dL Blood 04/07/2024 4:56 AM ENERGY BROKER 04/07/2024 4:56 AM ENERGY BROKER Ling Farrell MD LAB POCT ORDERABLES - DEVICE Fin al Result Performing Organization Address [facility] Phone Number [facility] [place] [address] * (ABNORMAL) Urinalysis reflex to microscopic and culture Urine (04/06/2024 9:03 PM ENERGY BROKER) [facility] Color, ur Yellow Yellow Clarity, ur Turbid(A) Clear [facility] Specific gravity, ur 1.015 1.003 - 1.030 [facility] pH, urine 6.5 [facility] Comment: Interpretive Data U rine pH is affected by diet, medications, systemic acid-base disturbances, and renal tubular function. pH may affect urinary stone formation. For example, urine pH below 6.0 may help reduce the tendency for calcium phosphate stones and pH greater than 6.0 may reduce the tendency for uric acid stone formation. Source: [facility] [employer] Current Interpretive Data was last revised on 2017 Protein, ur ql 2+(A) Negative [facility] Glucose, ur ql Negative Negative [facility] Ketones, ur Negative Negative [facility] Bilirubin, ur Negative Negative [facility] Blood, ur 2+(A) Negative [facility] Urobilinogen, ur <2.0 <2.0 mg/dL [facility] Nitrite, ur Positive(A) Negative [facility] Leukocyte esterase, ur 3+(A) Negative [facility] UA reflex comment Reflex to microscopic UA will be performed. [facility] Urine 04/06/2024 9:03 PM ENERGY BROKER 04/06/2024 9:11 PM ENERGY BROKER Becka Kearney MD LAB MICROBIOLOGY - [facility]AL [facility] Final Result Performing Organization Address [facility] Co de Phone Number [facility] [place] [address] * (ABNORMAL) Urinalysis, microscopic only (04/06/2024 9:03 PM ENERGY BROKER) WBC, ur >50(A) 0 - 5 /HPF RBC, ur 21-50(A) 0 - 2 /HPF [facility] Bacteria, ur 4+(A) [facility] Culture Reflex Comment Reflex to urine culture will be performed. [facility] Urine 04/06/2024 9:03 PM ENERGY BROKER 04/06/2024 9:11 PM ENERGY BROKER us Becka Kearney MD LAB URINE ORDERABLES Final Resu lt Performing Organization Address [facility] de Phone Number [facility] [place] [address] * (ABNORMAL) Urine culture Urine (04/06/2024 9:03 PM ENERGY BROKER) Report Final Report: Greater than or equal to 100,000 colonies/mL of Escherichia coli (.) Organism ESCHERICHIA COLI [facility] Urine 04/06/2024 9:03 PM ENERGY BROKER 04/06/2024 11:36 PM ENERGY BROKER Narrative [facility] - 04/09/2024 12:13 PM ENERGY BROKER Urine culture reflexed based upon urinalysis results. Testing performed by [facility] ([phone]) Organism Antibiotic Method Susceptibility Escherichia coli Ampicillin INTERPRETATION Susceptible Escherichia coli Cefazolin INTERPRETATION Susceptible Escherichia coli Nitrofurantoin INTERPRETATION Susceptible Escherichia coli Gentamicin INTERPRETATION Susceptible Escherichia coli Trimethoprim with Sulfamethoxazole IN TERPRETATION Susceptible Escherichia coli Meropenem INTERPRETATION Susceptible Escherichia coli Cefepime INTERPRETATION Susceptible Escherichia coli Ciprofloxacin INTERPRETATION Susceptible Escherichia coli Ceftazidime INTERPRETATION Susceptible Escherichia coli Ceftriaxone INTERPRETATION Susceptible Escherichia coli Piperacillin/Tazobactam INTERPRETATIO N Susceptible Escherichia coli Cephalexin INTERPRETATION Susceptible Escherichia coli Cefuroxime-axetil INTERPRETATION Susceptible Escherichia coli Cefdinir INTERPRETATION Susceptible us Becka Kearney MD LAB MICROBIOLOGY - GENERAL ORDE [facility] Final Result [facility] [place] [address] * XR Chest 1 Vw Portable (04/06/2024 7:58 PM ENERGY BROKER) Anatomical Region Laterality Modality Body, Chest N/A Computed Radiogr aphy 04/06/2024 8:04 PM ENERGY BROKER Impressions 04/06/2024 8:09 PM ENERGY BROKER FINDINGS/IMPRESSION: Mild bilateral lower lobe airspace opacities likely reflecting atelectasis versus sequela of aspiration. Small left and possible trace right pleural effusion. No pneumothorax. Unchanged cardiomediastinal silhouette with mild tortuosity and calcified atherosclerosis of the thoracic aorta. Large hiatal hernia is better seen on prior CT of the abdomen and pelvis. Dictated by: Frederic Teresa MD The radiology attending physician has personally reviewed this study, and had reviewed and/or edited this written report and agrees with it. Electronically signed by: Morteza Preston M.D. Narrative 04/06/2024 8:09 PM ENERGY BROKER EXAMINATION: XR CHEST 1 VIEW HISTORY: altered mental status COMPARISON: Chest radiograph dated 01/13/[address] of the abdomen and pelvis dated 03/31/2024. Procedure Note Morteza Preston MD - 04/06/2024 EXAMINATION: XR CHEST 1 VIEW HISTORY: altered mental status COMPARISON: Chest radiograph dated 01/13/[address] of the abdomen and pelvis dated 03/31/2024. IMPRESSION: FINDINGS/IMPRESSION: Mild bilateral lower lobe airspace opacities likely reflecting atelectasis versus sequela of aspiration. Small left and possible trace right pleural effusion. No pneumothorax. Unchanged cardiomediastinal silhouette with mild tortuosity and calcified atherosclerosis of the thoracic aorta. Large hiatal hernia is better seen on prior CT of the abdomen and pelvis. Dictated by: Frederic Teresa MD The radiology attending physician has personally reviewed this study, and had reviewed and/or edited this written report and agrees with it. Electronically signed by: Morteza Preston M.D. us Becka Kearney MD IMG XR PROCEDURES Final Result * ECG 12-LEAD (04/06/2024 7:35 PM ENERGY BROKER) Narrative [facility] - 04/06/2024 7:35 PM ENERGY BROKER Becka Kearney MD 04/06/2024 7:37 PM ECG 12 lead Date/Time: 04/06/2024 7:35 PM Performed by: Becka Kearney MD Authorized by: Becka Kearney MD Rate: ECG rate: 69 ECG rate assessment: normal Rhythm: Rhythm: sinus rhythm Ectopy: Ectopy: none QRS: QRS axis: Normal QRS intervals: Normal Conduction: Conduction: abnormal Abnormal conduction: complete RBBB ST segments: ST segments: Normal Previous ECG: Previous ECG: Compared to current Date of previous EC01/23/2024 Similarity: No change Interpretation: Interpretation: non-specific Recommended Follow-up: Recommended follow up: further workup in the ED Procedure Note Becka Kearney MD - 04/06/2024 7:35 PM CST Procedure ECG 12 lead Date/Time: 04/06/2024 7:35 PM Performed by: Becka Kearney MD Authorized by: Becka Kearney MD Rate: ECG rate: 69 ECG rate assessment: normal Rhythm: Rhythm: sinus rhythm Ectopy: Ectopy: none QRS: QRS axis: Normal QRS intervals: Normal Conduction: Conduction: abnormal Abnormal conduction: complete RBBB ST segments: ST segments: Normal Previous ECG: Previous ECG: Compared to current Date of previous EC01/23/2024 Similarity: No change Interpretation: Interpretation: non-specific Recommended Follow-up: Recommended follow up: further workup in the ED Becka Kearney MD 04/06/241936 Becka Kearney MD ECG ORDERABLES Final Result [facility] * Respiratory pathogen panel Nasopharyngeal (04/06/2024 7:08 PM ENERGY BROKER) [facility] Influenza A RNA Not Detected Not Detected Influenza B RNA Not Detected Not Detected [facility] RSV RNA Not Detected Not Detected [facility] COVID-19 RNA Not Detected Not Detected [facility] Coronavirus 229E RNA Not Detected Not Detected [facility] Coronavirus HKU1 RNA Not Detected Not Detected [facility] Coronavirus NL63 RNA Not Detected Not Detected [facility] Coronavirus OC43 RNA Not Detected Not Detected [facility] [facility] Adenovirus DNA Not Detected Not Detected [facility] Metapneumovirus RNA Not Detected Not Detected [facility] Rhinovirus/Enterov irus RNA Not Detected Not Detected [facility] Parainfluenza 1 RNA Not Detected Not Detected [facility] Parainfluenza 2 RNA Not Detected Not Detected [facility] Parainfluenza 3 RNA Not Detected Not Detected [facility] Parainfluenza 4 RNA Not Detected Not Detected [facility] B. pertussis DNA Not Detected Not Detected [facility] B. parapertussis DNA Not Detected Not Detected [facility] C. pneumoniae DNA Not Detected Not Detected [facility] M. pneumoniae DNA Not Detected Not Detected [facility] Nasopharyngeal 04/06/2024 7: 08 PM ENERGY BROKER 04/06/2024 7:52 PM ENERGY BROKER Narrative [facility] - 04/06/2024 9:12 PM ENERGY BROKER Is the Patient experiencing symptoms consistent with COVID?->Yes Surveillance testing for transplant patient?->No Interpretive Data The [employer] FilmArray Respiratory Panel (RP2.1) assay is a multiplexed real-time PCR based nucleic acid test capable of simultaneous qualitative detection and identification of multiple respiratory viral and bacterial nucleic acids, including SARS Coronavirus 2 (the causative agent of COVID-19). The following bacteria, viruses and virus subtypes can be identified using the FilmArray RP2.1 assay: Bordetella pertussis, Bordetella parapertussis, Chlamydia pneumoniae, Mycoplasma pneumoniae, Adenovirus, SARS Coronavirus 2, seasonal coronaviruses (Coronavirus HKU1, Coronavirus NL63, Coronavirus 229E, and Coronavirus OC43), Influenza A, Influenza A subtype H1, Influenza A subtype H3, Influenza A subtype 2009 H1, Influenza B, Metapneumovirus, Parainfluenza 1, Parainfluenza 2, Parainfluenza 3, Parainfluenza 4, RSV, Rhinovirus/Enterovirus. Due to the genetic similarity between human Rhinovirus and Enterovirus, the FilmArray RP2.1 assay cannot reliably differentiate them. Coronavirus OC43 may cross-react with some isolates of Coronavirus HKU1. A dual positive result may be due to cross-reactivity or may indicate a co- infection. The detection and identification of specific viral and bacterial nucleic acids from individuals exhibiting signs and symptoms of a respiratory infection aids in the diagnosis of respiratory infection if used in conjunction with other clinical and epidemiological information. The results of this test should not be used as the sole basis for diagnosis, treatment, or other management decisions. Negative results in the setting of a respiratory illness may be due to infection with pathogens that are not detected by this test. Positive results do not rule out infection/co-infection with other organisms. The agent(s) detected by the FilmArray RP2.1 may not be the definite cause of disease. Additional testing (lab, imaging, etc.) may be necessary when evaluating a patient with possible respiratory tract infection. The FilmArray RP2.1 assay has FDA clearance for testing of SURGICAL RN swabs. The performance of additional specimen types has been assessed by the performing laboratory. The performance characteristics of this assay have been determined by [facility]. Current interpretive data was last revised on 21. Heather Mcnally MD LAB MICROBIOLOGY - [facility] ORDERABLES Final Result [facility] [place] [address] * POCT glucose (04/06/2024 6:00 PM ENERGY BROKER) Glucose, POC 198 70 - 199 mg/dL Blood 04/06/2024 6:00 PM ENERGY BROKER 04/06/2024 6:00 PM ENERGY BROKER us Becka Kearney MD LAB POCT ORDERABLES - DEVICE Fi nal Result [facility] [place] [address] * CT Head WO Contrast (04/06/2024 5:34 PM ENERGY BROKER) Anatomical Region Laterality Modality Head and Neck N/A Computed Tomogra phy 04/06/2024 5:41 PM ENERGY BROKER Impressions 04/06/2024 6:21 PM ENERGY BROKER 1. No acute intracranial process. 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 Dictated by: Yecenia Sadler D.O. The radiology attending physician has personally reviewed this study, and had reviewed and/or edited this written report and agrees with it. Electronically signed by: Dea Monae MD, PhD Narrative 04/06/2024 6:21 PM ENERGY BROKER EXAMINATION: CT head without contrast HISTORY: Mental status change, unknown cause TECHNIQUE: CT of the head was performed with images acquired from skull base to vertex without intravenous contrast. 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 Postsurgical changes of left parietal craniotomy. Brain parenchymal volume loss with ex vacuo dilatation of the ventricles. Cerebellar volume loss. There is no acute intracranial hemorrhage. Ventricles are of normal size and morphology. No mass effect or midline shift is present. The rahman-white matter differentiation is normal. Mucosal thickening of the left maxillary sinus. Vertebrobasilar and bilateral intracranial carotid artery atherosclerotic calcifications. Bilateral ocular lens replacements.. No fractures are identified. Procedure Note Dea Monae MD PhD - 04/06/2024 EXAMINATION: CT head without contrast HISTORY: Mental status change, unknown cause TECHNIQUE: CT of the head was performed with images acquired from skull base to vertex without intravenous contrast. 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 Postsurgical changes of left parietal craniotomy. Brain parenchymal volume loss with ex vacuo dilatation of the ventricles. Cerebellar volume loss. There is no acute intracranial hemorrhage. Ventricles are of normal size and morphology. No mass effect or midline shift is present. The rahman-white matter differentiation is normal. Mucosal thickening of the left maxillary sinus. Vertebrobasilar and bilateral intracranial carotid artery atherosclerotic calcifications. Bilateral ocular lens replacements.. No fractures are identified. IMPRESSION: 1. No acute intracranial process. 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 Dictated by: Yecenia Sadler D.O. The radiology attending physician has personally reviewed this study, and had reviewed and/or edited this written report and agrees with it. Electronically signed by: Dea Monae MD, PhD Becka Kearney MD IMG CT PROCEDURES Final Result * Sepsis Lactate w/ Reflex (04/06/2024 5:14 PM ENERGY BROKER) Pathologist [facility] Sepsis Lactate 1.4 0.7 - 2.0 mmol/L Blood 04/06/2024 5:14 PM ENERGY BROKER 04/06/2024 5:25 PM ENERGY BROKER Becka Kearney MD LAB BLOOD ORDERABLES Final Resu lt [facility] [place] [address] * (ABNORMAL) eGFR (04/06/2024 5:14 PM ENERGY BROKER) Pathologist [facility] eGFR 28(L) >=60 mL/min/1. 73 m2 Comment: Interpretive Data Reference Interval Normal >/= 90 mL/min/1.73m2 Mildly decreased* 60 - 89 mL/min/1.73m2 Mildly to moderately decreased 45 - 59 mL/min/1.73m2 Moderately to severely decreased 30 - 44 mL/min/1.73m2 Severely decreased 15 - 29 mL/min/1.73m2 Kidney Failure < 15 mL/min/1.73m2 *Relative to young adult level Estimated glomerular filtration rate is determined by the 2020 CKD-EPI equation recommended by the National Kidney [employer] (A Unifying Approach to GFR Estimation: Recommendations of the NKF-ASK Task Force on Reassessing the Inclusion of Race in Diagnosing Kidney Disease, JASN 202). The CKD-EPI equation should not be used for patients with unstable renal function and has not been validated in children and those over 70. Current interpretive data was last reviewed 2021. Blood 04/06/2024 5:14 PM ENERGY BROKER 04/06/2024 5:37 PM ENERGY BROKER us eBcka Kearney MD LAB BLOOD ORDERABLES Final Resu lt [facility] [place] [address] * Differential, auto (04/06/2024 5:14 PM ENERGY BROKER) Neutrophil abs 3.5 1.5 - 6.5 K/cumm Imm gran abs 0.1 0.0 - 0.1 K/cumm [facility] Lymphocyte abs 1.0 0.8 - 3.3 K/cumm [facility] Monocyte abs 0.7 0.2 - 0.8 K/cumm [facility] Eosinophil abs 0.4 0.0 - 0.5 K/cumm [facility] Basophil abs 0.1 0.0 - 0.1 K/cumm [facility] Neutrophil pct 61.2 % [facility] Comment: Interpretive Data Percent cell count reference ranges are not reported, since discordance with absolute values may lead to misinterpretation of CBC data. Current Interpretive Data was last revised on 2017. Imm gran pct 1.1 % [facility] Comment: Interpretive Data Percent cell count reference ranges are not reported, since discordance with absolute values may lead to misinterpretation of CBC data. Current Interpretive Data was last revised on 2017. Lymphocyte pct 17.9 % [facility] Comment: Interpretive Data Percent cell count reference ranges are not reported, since discordance with absolute values may lead to misinterpretation of CBC data. Current Interpretive Data was last revised on 2017. Monocyte pct 12.3 % [facility] Comment: Interpretive Data Percent cell count reference ranges are not reported, since discordance with absolute values may lead to misinterpretation of CBC data. Current Interpretive Data was last revised on 2017. Eosinophil pct 6.6 % [facility] Comment: Interpretive Data Percent cell count reference ranges are not reported, since discordance with absolute values may lead to misinterpretation of CBC data. Current Interpretive Data was last revised on 2017. Basophil pct 0.9 % [facility] Comment: Interpretive Data Percent cell count reference ranges are not reported, since discordance with absolute values may lead to misinterpretation of CBC data. Current Interpretive Data was last revised on 2017. Blood 04/06/2024 5:14 PM ENERGY BROKER 04/06/2024 5:26 PM ENERGY BROKER us Becka Kearney MD LAB BLOOD ORDERABLES Final Resu lt [facility] [place] [address] * (ABNORMAL) CBC with auto differential (04/06/2024 5:14 PM ENERGY BROKER) WBC 5.6 3.8 - 9.9 K/cumm Hgb 9.7(L) 13.0 - 17.5 g/dL [facility] Hct 28.9(L) 38.9 - 50.3 % [facility] Plt 98(L) 150 - 400 K/cumm [facility] Comment:No clot detected in sample. MPV 10.9 9.1 - 12.3 fL [facility] RBC 3.00(L) 4.30 - 5.80 M/cumm [facility] MCV 96.3 81.3 - 96.4 fL [facility] MCH 32.3 27.1 - 33.3 pg [facility] MCHC 33.6 32.3 - 35.7 g/dL [facility] RDW CV 13.6 11.1 - 14.9 % [facility] RDW SD 48.6(H) 35.7 - 48.1 fL [facility] NRBC abs 0.00 0.00 - 0.01 K/cumm [facility] Blood (Blood, Venous) 04/06/2024 5:14 PM ENERGY BROKER 04/06/2024 5:26 PM ENERGY BROKER Becka Kearney MD LAB BLOOD ORDERABLES Final Resu lt [facility] [place] [address] * Blood culture Blood (04/06/2024 5:14 PM ENERGY BROKER) Report Final Report: No growth Blood 04/06/2024 5:14 PM ENERGY BROKER 04/06/2024 5:41 PM ENERGY BROKER Narrative [facility] - 04/11/2024 7:01 AM ENERGY BROKER Collection->Peripheral 1. Blood cultures are incubated for 4 days on a continuously monitored blood culture system. The first report of a negative culture is issued within 24 hours of receipt of the specimen in the laboratory. 2. Positive culture results are reported as soon as they are detected. 3. The most important factor for detection of microbes in the setting of bloodstream infection is the volume of blood submitted for culture. Failure to collect an optimal blood volume can result in false negative blood cultures. 4. For pediatric patients, the recommended blood volume to collect follows a weight based strategy. See the electronic test catalog for collection instructions. 5. For positive blood cultures, a rapid molecular test may be performed for organism identification using the emily ePlex blood culture identification panel for gram positive (BCID-GP) and gram negative (BCID-GN) organisms. This nucleic acid amplification test detects microbial DNA in positive blood culture broth. This assay has been cleared by the [place] Food and Drug Administration and its performance characteristics have been verified by the [facility]. For questions about this culture, contact the Microbiology Laboratory at [phone]. Interpretive data was last revised on 23. us Becka Kearney MD LAB MICROBIOLOGY - [facility] Final Result [facility] [place] [address] * (ABNORMAL) Comprehensive metabolic panel (04/06/2024 5:14 PM ENERGY BROKER) Sodium 141 135 - 145 mmol/L Potassium, pl 3.7 3.3 - 4.9 mmol/L [facility] Chloride 109 97 - 110 mmol/L [facility] CO2 25 22 - 32 mmol/L [facility] Anion gap 7 2 - 15 mmol/L [facility] BUN 30(H) 6 - 25 mg/dL [facility] Creatinine 2.22(H) 0.80 - 1.30 mg/dL [facility] Glucose 185 70 - 199 mg/dL [facility] Comment: Interpretive Data Fasting glucose >/= 126 mg/dl is diagnostic for diabetes. Fasting is defined as no caloric intake for at least 8 hours. Fasting glucose between 100 mg/dl to 125 mg/dl is diagnostic of prediabetes. In a patient with classic symptoms of hyperglycemia or hyperglycemic crisis, a random glucose >/= 200 mg/dl is diagnostic for diabetes. In the absence of unequivocal hyperglycemia, results should be confirmed by repeat testing. The classification and Diagnosis of Diabetes Diabetes Care 2021; 46: S19-S40. Current interpretive data was last revised 2022. Calcium 9.2 8.5 - 10.3 mg/dL [facility] Bilirubin, total 0.3 0.1 - 1.2 mg/dL [facility] Protein, pl 5.8(L) 6.5 - 8.5 g/dL [facility] Albumin 3.0(L) 3.5 - 5.0 g/dL [facility] Alk phos 72 40 - 130 Units/L [facility] ALT 5(L) 7 - 55 Units/L [facility] AST 13 10 - 50 Units/L [facility] Blood (Blood, Venous) 04/06/2024 5:14 PM ENERGY BROKER 04/06/2024 5:26 PM ENERGY BROKER us Becka Kearney MD LAB BLOOD ORDERABLES Final Resu lt Performing Organization Address [facility] Co de Phone Number [facility] [place] [address] * POCT glucose (04/01/2024 1:37 PM ENERGY BROKER) Glucose, POC 107 70 - 199 mg/dL Blood 04/01/2024 1:37 PM ENERGY BROKER 04/01/2024 1:37 PM ENERGY BROKER us Charles Bowers MD LAB POCT ORDERABLES - [facility] Final Result Performing Organization Address [facility] Co de Phone Number [facility] [place] [place] [address] * POCT glucose (04/01/2024 5:20 AM ENERGY BROKER) Glucose, POC 103 70 - 199 mg/dL Blood 04/01/2024 5:20 AM ENERGY BROKER 04/01/2024 5:20 AM ENERGY BROKER us Higinio Barbosa MD LAB POCT ORDERABLES - DEVICE Fin al Result Performing Organization Address [facility] Co de Phone Number [facility] [place] [address] * POCT glucose (04/01/2024 2:38 AM ENERGY BROKER) Glucose, POC 97 70 - 199 mg/dL Blood 04/01/2024 2:38 AM ENERGY BROKER 04/01/2024 2:38 AM ENERGY BROKER us Higinio Barbosa MD LAB POCT ORDERABLES - DEVICE Fin al Result Performing Organization Address [facility] Co de Phone Number [facility] [place] [address] * POCT glucose (03/31/2024 9:48 PM ENERGY BROKER) Glucose, POC 118 70 - 199 mg/dL Blood 03/31/2024 9:48 PM ENERGY BROKER 03/31/2024 9:48 PM ENERGY BROKER Sanket Gillespie MD LAB POCT ORDERABLES - [facility] Final Result Performing Organization Address [facility] [place] [address] * POCT glucose (03/31/2024 5:18 PM ENERGY BROKER) Glucose, POC 120 70 - 199 mg/dL Blood 03/31/2024 5:18 PM ENERGY BROKER 03/31/2024 5:18 PM ENERGY BROKER Sanket Gillespie MD LAB POCT ORDERABLES - [facility] Final Result Performing Organization Address [facility]/[place] [address] * CT Abdomen Pelvis W Contrast (03/31/2024 4:15 PM ENERGY BROKER) Anatomical Region Laterality Modality Body N/A Computed Tomogra phy 03/31/2024 4:38 PM ENERGY BROKER Impressions 03/31/2024 4:38 PM ENERGY BROKER 1. Large colorectal stool volume with mucosal thickening and surrounding inflammatory changes of the sigmoid colon and rectum. These findings likely represent sequelae of chronic constipation or stercoral colitis. 2. Large hiatal hernia. 3. There is calcification of the distal left ureter, which is unchanged from 05/16/2023 and favored to represent a mural calcification versus less likely a intraluminal stone. Electronically signed by: Yohan Roman M.D. Narrative 03/31/2024 4:38 PM ENERGY BROKER EXAMINATION: Computed tomography of the abdomen and pelvis with intravenous contrast HISTORY: Epigastric pain TECHNIQUE: Transaxial computed tomographic images of the abdomen and pelvis were obtained with intravenous contrast according to the standard protocol after the uneventful administration of 69 mL Opti-Ray 350 intravenous contrast. COMPARISON: CT dated 05/16/2023 FINDINGS: There is a small left and trace right pleural effusion with associated atelectasis. Trace pericardial effusion. Normal-sized configuration of the liver. No discrete hepatic lesions. The gallbladder present without intrahepatic or extrahepatic ductal dilation. The adrenal glands, spleen, and pancreas are unremarkable. There is symmetric renal cortical enhancement. No hydronephrosis. Simple right renal cyst. Nonobstructive left renal calculus. Additionally, there is ureteric calcification noted within the left ureter measuring 5 mm. This ureteric calcification is present on the CT dated 05/16/2023. There is a large hiatal hernia within the mediastinum, similar to the prior examination. There is no evidence of the bowel obstruction. The colon is redundant. There is a large amount of stool noted within the rectal vault with mucosal thickening and surrounding inflammatory changes of the mucosa, particularly within the rectum. This is similar to slightly worsened from the examination dated 05/16/2023. The bladder is underdistended, limiting evaluation. Prostate is not well evaluated. Again noted is the infrarenal abdominal aortic aneurysm which is fusiform in appearance. The aneurysm measures up to 3.4 cm, grossly unchanged from 05/16/2023. 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 There is moderate bilateral renal artery stenosis. Small amount of fluid noted within the pelvis. Presacral edema is present, slightly worsened from the prior examination. There are no acute or aggressive osseous abnormalities. There are multilevel degenerative changes of the spine. There is a compression deformity of the L3 vertebral body which is unchanged from 05/16/2023. Procedure Note Yohan Roman MD - 03/31/2024 EXAMINATION: Computed tomography of the abdomen and pelvis with intravenous contrast HISTORY: Epigastric pain TECHNIQUE: Transaxial computed tomographic images of the abdomen and pelvis were obtained with intravenous contrast according to the standard protocol after the uneventful administration of 69 mL Opti-Ray 350 intravenous contrast. COMPARISON: CT dated 05/16/2023 FINDINGS: There is a small left and trace right pleural effusion with associated atelectasis. Trace pericardial effusion. Normal-sized configuration of the liver. No discrete hepatic lesions. The gallbladder present without intrahepatic or extrahepatic ductal dilation. The adrenal glands, spleen, and pancreas are unremarkable. There is symmetric renal cortical enhancement. No hydronephrosis. Simple right renal cyst. Nonobstructive left renal calculus. Additionally, there is ureteric calcification noted within the left ureter measuring 5 mm. This ureteric calcification is present on the CT dated 05/16/2023. There is a large hiatal hernia within the mediastinum, similar to the prior examination. There is no evidence of the bowel obstruction. The colon is redundant. There is a large amount of stool noted within the rectal vault with mucosal thickening and surrounding inflammatory changes of the mucosa, particularly within the rectum. This is similar to slightly worsened from the examination dated 05/16/2023. The bladder is underdistended, limiting evaluation. Prostate is not well evaluated. Again noted is the infrarenal abdominal aortic aneurysm which is fusiform in appearance. The aneurysm measures up to 3.4 cm, grossly unchanged from 05/16/2023. 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 There is moderate bilateral renal artery stenosis. Small amount of fluid noted within the pelvis. Presacral edema is present, slightly worsened from the prior examination. There are no acute or aggressive osseous abnormalities. There are multilevel degenerative changes of the spine. There is a compression deformity of the L3 vertebral body which is unchanged from 05/16/2023. IMPRESSION: 1. Large colorectal stool volume with mucosal thickening and surrounding inflammatory changes of the sigmoid colon and rectum. These findings likely represent sequelae of chronic constipation or stercoral colitis. 2. Large hiatal hernia. 3. There is calcification of the distal left ureter, which is unchanged from 05/16/2023 and favored to represent a mural calcification versus less likely a intraluminal stone. Electronically signed by: Yohan Roman M.D. [facility] Serene Bautista MD [facility] CT PROCEDURES Final Result * (ABNORMAL) Urinalysis reflex to microscopic and culture Urine (03/31/2024 2:21 PM ENERGY BROKER) Color, ur Yellow Yellow Clarity, ur Cloudy(A) Clear [facility] Specific gravity, ur 1.020 1.003 - 1.030 [facility] pH, urine 6.0 [facility] Comment: Interpretive Data U rine pH is affected by diet, medications, systemic acid-base disturbances, and renal tubular function. pH may affect urinary stone formation. For example, urine pH below 6.0 may help reduce the tendency for calcium phosphate stones and pH greater than 6.0 may reduce the tendency for uric acid stone formation. Source: [facility] Current Interpretive Data was last revised on 2017 Protein, ur ql 2+(A) Negative [facility] Glucose, ur ql Negative Negative [facility] Ketones, ur Negative Negative [facility] Bilirubin, ur Negative Negative [facility] Blood, ur 1+(A) Negative [facility] Urobilinogen, ur <2.0 <2.0 mg/dL [facility] Nitrite, ur Negative Negative [facility] Leukocyte esterase, ur 3+(A) Negative [facility] UA reflex comment Reflex to microscopic UA will be performed. [facility] Urine 03/31/2024 2:21 PM ENERGY BROKER 03/31/2024 2:42 PM ENERGY BROKER Keyon Bautista MD LAB MICROBIOLOGY - GENERAL [place] Final Result [facility] [place] [address] * (ABNORMAL) Urinalysis, microscopic only (03/31/2024 2:21 PM ENERGY BROKER) WBC, ur >50(A) 0 - 5 /HPF RBC, ur 6-10(A) 0 - 2 /HPF [facility] Epithelial cells, squamous, ur 1-5 0 - 5 /HPF [facility] Yeast, ur 2+(A) [facility] Mucous, ur Present(A) [facility] Hyaline casts, ur 1-5 0 - 10 /LPF [facility] Culture Reflex Comment Reflex to urine culture will be performed. [facility] Urine 03/31/2024 2:21 PM ENERGY BROKER 03/31/2024 2:42 PM ENERGY BROKER Keyon Bautista MD LAB URINE ORDERABLES Final Resu lt Performing Organization Address [facility] de Phone Number [facility] [place] [address] * Urine culture Urine (03/31/2024 2:21 PM ENERGY BROKER) [facility] Report Final Report: Less than 100,000 colonies/mL (clinically insignificant growth based on current clinical standards) Organism (CLINICALLY INSIGNIFICANT GROWTH [facility] Urine 03/31/2024 2:21 PM ENERGY BROKER 03/31/2024 3:42 PM ENERGY BROKER Narrative [facility] - 04/01/2024 4:48 PM ENERGY BROKER Urine culture reflexed based upon urinalysis results. Testing performed by [facility] ([phone]) Keyon Bautista MD LAB MICROBIOLOGY - GENERAL ORDAnusha RABCHRISTINA Final Result Performing Organization Address [facility] de Phone Number [facility] [place] [address] * POCT glucose (03/31/2024 2:12 PM ENERGY BROKER) [facility] Glucose, POC 160 70 - 199 mg/dL Blood 03/31/2024 2:12 PM ENERGY BROKER 03/31/2024 2:12 PM ENERGY BROKER Stephen Cheng MD LAB POCT ORDERABLES - D EVMINA Final Result Performing Organization Address [facility] Co de Phone Number [facility] [place] [address] * (ABNORMAL) eGFR (03/31/2024 2:07 PM ENERGY BROKER) [facility] eGFR 29(L) >=60 mL/min/1. 73 m2 Comment: Interpretive Data Reference Interval Normal >/= 90 mL/min/1.73m2 Mildly decreased* 60 - 89 mL/min/1.73m2 Mildly to moderately decreased 45 - 59 mL/min/1.73m2 Moderately to severely decreased 30 - 44 mL/min/1.73m2 Severely decreased 15 - 29 mL/min/1.73m2 Kidney Failure < 15 mL/min/1.73m2 *Relative to young adult level Estimated glomerular filtration rate is determined by the 2020 CKD-EPI equation recommended by the National Kidney Foundation (A Unifying Approach to GFR Estimation: Recommendations of the NKF-ASK Task Force on Reassessing the Inclusion of Race in Diagnosing Kidney Disease, JASN 202). The CKD-EPI equation should not be used for patients with unstable renal function and has not been validated in children and those over 70. Current interpretive data was last reviewed 2021. Blood 03/31/2024 2:07 PM ENERGY BROKER 03/31/2024 2:23 PM ENERGY BROKER [facility] Serene Bautista MD LAB BLOOD ORDERABLES Final Resu lt [facility] [place] [address] * Differential, auto (03/31/2024 2:07 PM ENERGY BROKER) Neutrophil abs 4.8 1.5 - 6.5 K/cumm Imm gran abs 0.0 0.0 - 0.1 K/cumm [facility] Lymphocyte abs 0.8 0.8 - 3.3 K/cumm [facility] Monocyte abs 0.4 0.2 - 0.8 K/cumm [facility] Eosinophil abs 0.0 0.0 - 0.5 K/cumm [facility] Basophil abs 0.0 0.0 - 0.1 K/cumm [facility] Neutrophil pct 78.4 % [facility] Comment: Interpretive Data Percent cell count reference ranges are not reported, since discordance with absolute values may lead to misinterpretation of CBC data. Current Interpretive Data was last revised on 2017. Imm gran pct 0.7 % [facility] Comment: Interpretive Data Percent cell count reference ranges are not reported, since discordance with absolute values may lead to misinterpretation of CBC data. Current Interpretive Data was last revised on 2017. Lymphocyte pct 13.4 % [facility] Comment: Interpretive Data Percent cell count reference ranges are not reported, since discordance with absolute values may lead to misinterpretation of CBC data. Current Interpretive Data was last revised on 2017. Monocyte pct 7.0 % [facility] Comment: Interpretive Data Percent cell count reference ranges are not reported, since discordance with absolute values may lead to misinterpretation of CBC data. Current Interpretive Data was last revised on 2017. Eosinophil pct 0.2 % [facility] Comment: Interpretive Data Percent cell count reference ranges are not reported, since discordance with absolute values may lead to misinterpretation of CBC data. Current Interpretive Data was last revised on 2017. Basophil pct 0.3 % [facility] Comment: Interpretive Data Percent cell count reference ranges are not reported, since discordance with absolute values may lead to misinterpretation of CBC data. Current Interpretive Data was last revised on 2017. Blood 03/31/2024 2:07 PM ENERGY BROKER 03/31/2024 2:23 PM ENERGY BROKER us Keyon Bautista MD LAB BLOOD ORDERABLES Final Resu lt [facility] [place] [address] * (ABNORMAL) CBC with auto differential (03/31/2024 2:07 PM ENERGY BROKER) WBC 6.1 3.8 - 9.9 K/cumm Hgb 10.5(L) 13.0 - 17.5 g/dL [facility] Hct 31.0(L) 38.9 - 50.3 % [facility] Plt 120(L) 150 - 400 K/cumm [facility] MPV 11.7 9.1 - 12.3 fL [facility] RBC 3.28(L) 4.30 - 5.80 M/cumm [facility] MCV 94.5 81.3 - 96.4 fL [facility] MCH 32.0 27.1 - 33.3 pg [facility] MCHC 33.9 32.3 - 35.7 g/dL [facility] RDW CV 13.4 11.1 - 14.9 % [facility] RDW SD 46.4 35.7 - 48.1 fL [facility] NRBC abs 0.00 0.00 - 0.01 K/cumm [facility] Blood 03/31/2024 2:07 PM ENERGY BROKER 03/31/2024 2:23 PM ENERGY BROKER Keyon Bautista MD LAB BLOOD ORDERABLES Final Resu lt Performing Organization Address [facility] de Phone Number [facility] [place] [address] * Protime-INR (03/31/2024 2:07 PM ENERGY BROKER) PT 11.4 9.7 - 13.0 sec INR 1.05 0.90 - 1.20 [facility] Comment: Interpretive data Oral anticoagulant therapeutic ranges: Venous thromboembolism prophylaxis or treatment: 2.0-3.0 CARDIOLOGY Standard range: 2.0-3.0 High-intensity range: 2.5-3.5 Refer to indication-specific guidelines for appropriate target ranges for prosthetic heart valve replacement. Current interpretive data was last revised on 2019. Blood 03/31/2024 2:07 PM ENERGY BROKER 03/31/2024 2:27 PM ENERGY BROKER Keyon Bautista MD LAB BLOOD ORDERABLES Final Resu lt Performing Organization Address [facility] Co de Phone Number [facility] [place] [address] * (ABNORMAL) Hepatic function panel (03/31/2024 2:07 PM ENERGY BROKER) Bilirubin, total 0.4 0.1 - 1.2 mg/dL Bilirubin, direct <0.2 0.1 - 0.3 mg/dL [facility] Comment:Hemolyzed; result ma y be falsely decreased Protein, pl 6.4(L) 6.5 - 8.5 g/dL [facility] Albumin 3.4(L) 3.5 - 5.0 g/dL [facility] Alk phos 74 40 - 130 Units/L [facility] ALT 9 7 - 55 Units/L [facility] AST 21 10 - 50 Units/L [facility] Comment:Hemolyzed; result ma y be falsely elevated Blood 03/31/2024 2:07 PM ENERGY BROKER 03/31/2024 2:23 PM ENERGY BROKER us Keyon Bautista MD LAB BLOOD ORDERABLES Final Resu lt [facility] [place] [address] * (ABNORMAL) Basic metabolic panel (03/31/2024 2:07 PM ENERGY BROKER) Sodium 140 135 - 145 mmol/L Potassium, pl 3.9 3.3 - 4.9 mmol/L [facility] Comment:Hemolyzed; Potassium value may be falsely elevated by as much as 0.3-0.5 mmol/L. Suggest redraw and reanalysis. Chloride 106 97 - 110 mmol/L [facility] CO2 23 22 - 32 mmol/L [facility] Anion gap 11 2 - 15 mmol/L [facility] BUN 39(H) 6 - 25 mg/dL [facility] Creatinine 2.16(H) 0.80 - 1.30 mg/dL [facility] Glucose 143 70 - 199 mg/dL [facility] Comment: Interpretive Data Fasting glucose >/= 126 mg/dl is diagnostic for diabetes. Fasting is defined as no caloric intake for at least 8 hours. Fasting glucose between 100 mg/dl to 125 mg/dl is diagnostic of prediabetes. In a patient with classic symptoms of hyperglycemia or hyperglycemic crisis, a random glucose >/= 200 mg/dl is diagnostic for diabetes. In the absence of unequivocal hyperglycemia, results should be confirmed by repeat testing. The classification and Diagnosis of Diabetes Diabetes Care 202; 46: S19-S40. Current interpretive data was last revised 2022. Calcium 10.3 8.5 - 10.3 mg/dL [facility] Blood 03/31/2024 2:07 PM ENERGY BROKER 03/31/2024 2:23 PM ENERGY BROKER us Keyon Bautista MD LAB BLOOD ORDERABLES Final Resu lt [facility] [place] [address] * (ABNORMAL) Lipid panel (01/21/2024 8:23 PM ENERGY BROKER) Cholesterol 156 30 - 199 mg/dL Comment: Interpretive Data Ages < or = 19 years Acceptable: <170 mg/dL Borderline high: 170-199 mg/dL High: >or= 200 mg/dL Ages > or = 20 years Desirable: <200 mg/dL Borderline high: 200-239 mg/dL High: >or= 240 mg/dL Literature References: 1. Expert Panel on Integrated Guidelines for Cardiovascular Health and Risk Reduction in Children and Adolescents. Pediatrics 2011;128:S213 2. NCEP Expert Panel. Circulation 2004;110:227 Current Interpretive Data was last revised on 2017. Triglycerides 76 <=149 mg/dL [facility] Comment: Interpretive Data Ages < or = 9 years Acceptable: <75 mg/dL Borderline high: 75-99 mg/dL High: >or= 100 mg/dL Ages 10 to 20 years Acceptable: <90 mg/dL Borderline high: 90-129 mg/dL High: >or= 130 mg/dL Ages > or = 20 years Desirable: <150 mg/dL Borderline high: 150-199 mg/dL High: 200-499 mg/dL Very high: >or= 499 mg/dL Literature References: 1. Expert Panel on Integrated Guidelines for Cardiovascular Health and Risk Reduction in Children and Adolescents. Pediatrics 2011;128:S213 2. NCEP Expert Panel. Circulation 2004;110:227 Current Interpretive Data was last revised on 2017. HDL 38(L) >=40 mg/dL [facility] Comment: Interpretive Data Ages < or = 19 years Acceptable: >45 mg/dL Borderline low: 40-45 mg/dL Low: <40 mg/dL Ages > or = 20 years Desirable: >or= 60 mg/dL Low: <40 mg/dL Literature References: 1. Expert Panel on Integrated Guidelines for Cardiovascular Health and Risk Reduction in Children and Adolescents. Pediatrics 2011;128:S213 2. NCEP Expert Panel. Circulation 2004;110:227 Current Interpretive Data was last revised on 2017. LDL, calculated 103 <=129 mg/dL [facility] Comment: Interpretive Data Ages < or = 19 years Acceptable: <110 mg/dL Borderline high: 110-129 mg/dL High: >or= 130 mg/dL Ages > or = 20 years Optimal: <100 mg/dL Near optimal: 100-129 mg/dL Borderline high: 130-159 mg/dL High: >160 mg/dL Calculated using the Jose LDL-C estimating equation. This equation was implemented on 2023. Prior to this date LDL-C was estimated using the Friedewald equation. Literature References: 1. Expert Panel on Integrated Guidelines for Cardiovascular Health and Risk Reduction in Children and Adolescents. Pediatrics 2011;128:S213 2. NCEP Expert Panel. Circulation 2004;110:227 3. Jose Franco al. AYSE Cardiol. 2019July 02;5(5):540-548. doi: 10.1001/jamacardio.2020.0013 Current Interpretive Data was last revised on 2023. Non-HDL Cholesterol 118 mg/dL [facility] Comment: Interpretive Data Ages < or = 19 years Acceptable: <120 mg/dL Borderline high: 120-144 mg/dL High: >145 mg/dL Ages > or = 20 years When triglycerides are >200 mg/dL, Non-HDL cholesterol is a secondary target of therapy with treatment goals that are 30 mg/dL greater than the LDL cholesterol target. Literature References: 1. Expert Panel on Integrated Guidelines for Cardiovascular Health and Risk Reduction in Children and Adolescents. Pediatrics 2011;128:S213 2. NCEP Expert Panel. Circulation 2004;110:227 Current Interpretive Data was last revised on 2017. Chol/HDL ratio 4 [facility] Blood 01/21/2024 8:23 PM ENERGY BROKER 01/21/2024 8:40 PM ENERGY BROKER us Nacho Hernandez MD LAB BLOOD ORDERABLES Final Re sult Performing Organization Address [facility] Co de Phone Number [facility] [place] [address] * Hemoglobin A1c (11/29/2023 8:54 PM CDT) Hgb A1C 5.2 4.0 - 5.6 % Estimated Average Glucose 103 mg/dL [facility] Comment: The ADA recommends reporting an estimated Average Glucose (eAG) with all Hemoglobin A1c results using the equation derived from a study of 507 normal and diabetic adults. Minority populations were underrepresented and children were not included. (Diabetes Care 2020; 43(S1): S66-S76). The eAG is not equivalent to a fasting glucose. Blood 11/29/2023 8:54 PM CDT 11/29/2023 9:15 PM CDT Result [facility] Lori Mckenzie MD LAB BLOOD ORDERABLES Lis l Result Performing Organization Address [facility] de Phone Number [facility] [place] [address] * (ABNORMAL) Albumin Creatinine Ratio, Urine (03/21/2023 12:32 PM ENERGY BROKER) Albumin Ur 64.2 mg/L [facility] Comment: Interpretive Data No reference range established. Current interpretive data was last revised 2018. Creatinine Ur 77.7 mg/dL [facility] Comment: Interpretive Data No reference range established. Current interpretive data was last revised 2018. Albumin Creatinine Ratio, Ur 83(H) 1 - 29 mg/g [facility] Urine 03/21/2023 12:3 2 PM ENERGY BROKER 03/21/2023 2:06 PM ENERGY BROKER Result 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 Review for flag removal can begin on 05/27/24. Tabitha Estela 11/28/2023 11/28/2023 VRE 01/14/2024 01/14/2024 Insurance MEDICARE [facility]IC[facility] Advance Directives For more information, please contact: [phone] * LIMITED - No CPR (Latest Code Status on File) Date Activated Date Inactivated Comments 04/07/2024 8:20 PM 04/09/2024 11:04 PM Question Answer Comments Provide aggressive medical m anagement before a full cardiopulmonary arrest occurs. Use antibiotics, IV Fluids, and medical treatment unless specifically selected below: No intubation * LIMITED - No CPR Date Activated Date Inactivated Comments 01/22/2024 2:37 AM 01/24/2024 10:34 PM Question Answer Comments Provide aggressive medical m anagement before a full cardiopulmonary arrest occurs. Use antibiotics, IV Fluids, and medical treatment unless specifically selected below: No intubation * LIMITED - No CPR Date Activated Date Inactivated Comments 01/14/2024 5:12 PM 01/16/2024 4:45 PM Question Answer Comments Provide aggressive medical m anagement before a full cardiopulmonary arrest occurs. Use antibiotics, IV Fluids, and medical treatment unless specifically selected below: No intubation * Full Code Date Activated Date Inactivated Comments 01/14/2024 4:57 PM 01/14/2024 5:12 PM * Full Code Date Activated Date Inactivated Comments 11/28/2023 8:48 PM 12/02/2023 6:56 PM Care Teams Medical Records Field Technician Relationship Specialty Start Date End Date Miguel Ángel Vigil MD [address] [facility] [place] [address] PCP - General Internal Medicine 12/03/22
--- OUTSIDE RECORDS SUMMARY | 2024-05-01 14:49 | XMS_ITS | Clinical Summary ---
Author Organization [facility] Address [address] [place] [address] Phone Care Team Providers Care In Shop Service Technician Name Role Phone Miguel Ángel Vigil MD Primary Care Provider [phone] Allergies Active Allergy Reactions Criticality Noted Date [...] intracranial abnormality. XR pelvis without fracture. - PT/OT/RETORT OPERATOR consults. Recommend SNF. Family declined, plan home [...] AM CDT): replaced Fecal impaction of colon ([facility]) 05/16/2023 Assessment & Plan (05/20/2023 10:50 AM CDT): Normal TSH. Resolved, continue MiraLax and bisacodyl Abdominal aortic aneurysm (A AA) 3.0 cm to 5.5 cm in diameter in male 05/16/2023 Overview (05/16/2023): Infrarenal abdominal aortic aneurysm measuring up to 3.6 cm Gastrointestinal intolerance to foods 03/20/2023 Assessment & Plan (03/22/2023 12:46 PM RESEARCH COMPUTING SPECIALIST): Patient presents with ~2.5 weeks of acutely [...] precautions Assessment & Plan (03/21/2023 11:44 AM RESEARCH COMPUTING SPECIALIST): Per notes, A&Ox1-2 at baseline; seems to be at chronic baseline currently - Delirium precautions, high risk Poor short-term memory 11/16/2020 Acute renal failure superimp osed on stage 4 chronic kidney disease ([facility]/HCC) 11/16/2020 Assessment & Plan (07/08/2023 10:42 AM [...] 2.8-3.0. He does not follow with a insurance agents supervisor. Kidney imaging 05/16/23 CT AP WO Contrast showed nonobstructive bilateral renal calculi and distal left ureteral calculus. No hydronephrosis. Proteinuria 03/21/2023: Albumin Creatinine Ratio, Ur 83 CKD/ESRD regimen: sodium bicarb 650 BID Assessment & Plan (03/21/2023 8:41 AM RESEARCH COMPUTING SPECIALIST): Renal function stable / improved from prior. -CTM volume status, renal function -Avoid renal toxins, renally dose meds Hematochezia 11/16/2020 Dyslipidemia 11/16/2020 Assessment & Plan (05/16/2023 11:36 PM CDT): Home med: pravastatin 40 mg daily. -continue pravastatin Assessment & Plan (03/21/2023 11:43 AM RESEARCH COMPUTING SPECIALIST): - continue home pravastatin Depressive disorder 11/16/2020 Assessment & Plan (09/24/2023 1:13 AM CDT): - continue home lexapro Assessment & Plan (05/16/2023 11:37 PM CDT): Home med: escitalopram 10 mg daily. -continue escitalopram Assessment & Plan (03/21/2023 11:43 AM RESEARCH COMPUTING SPECIALIST): - continue home lexapro Abnormal international normal [...] Ceftriaxone Assessment & Plan (03/21/2023 12:36 PM RESEARCH COMPUTING SPECIALIST): Patient with reported history of frequent / [...] although unstable. Lives with granddaughter, who is career technical supervisor. Old infarct in the left HARLEY territory and additional small cortical infarcts in the high left perirolandic cortex. Mild periventricular and pontine white matter changes nonspecific but likely related to chronic small vessel disease. Punctate microhemorrhage in the left subinsular white matter. - Continue aspirin, pravastatin - plan home at discharge, Granddaughter (Teri Luke) vocational rehabilitation supervisor sales representative cash registers - patient already w/HH and 24hr care in place Assessment & Plan (06/20/2023 4:53 PM CDT): Baseline of A&Ox2 but able to follow conversations, able to ambulate without walker, although unstable. Lives with granddaughter, who is career technical supervisor. -PT/OT consult Personal history of nicotine dependence [...] 5.7. Assessment & Plan (03/21/2023 11:40 AM RESEARCH COMPUTING SPECIALIST): No longer on meds, currently diet-controlled with last A1c 5.7% - Trend glucose with routine labs as indicated. Atrial fibrillation ([facility]) 02/15/2015 Assessment & Plan (09/24/2023 2:06 PM [...] Coreg Assessment & Plan (03/21/2023 11:41 AM RESEARCH COMPUTING SPECIALIST): Not on AC, NSR w/ RBBB on [...] tamsulosin Assessment & Plan (03/21/2023 11:43 AM RESEARCH COMPUTING SPECIALIST): - continue home tamsulosin (allergy listed as [...] protonix Assessment & Plan (03/20/2023 8:30 PM RESEARCH COMPUTING SPECIALIST): -PPI Insomnia 04/01/2010 Generalized anxiety disorder 05/17/2009 Occlusion and stenosis of bilateral carotid roz vignesh 10/29/2008 Resolved Problems Problem Noted Date Diagnosed Date Resolved Date Aspiration into lower respiratory tract 07/02/2023 07/04/2023 Assessment & Plan (07/03/2023 3:46 PM CDT): CXR from admit with bilateral opacities L>R concerning for aspiration vs atelectasis. Denies cough, difficulty swallowing. 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 - Continue home metoprolol Cerebrovascular accident (CVA) 05/17/2009 11/16/2020 Obstructive sleep apnea 11/25/200806/02 Assessment & Plan (06/20/2023 4:46 PM CDT): -CPAP at night Encounters Date Type Department Care Team Description 04/15/2024 SHOP/CHAP Initial Outreach [facility] [address] [place] [address] Doris Shahid, RN 04/13/2024 SHOP/CHAP Initial Outreach [facility] [address] [place] [address] Doris Shahid, RN 04/10/2024 SHOP/CHAP Initial Outreach [facility] [address] [place] [address] Doris Shahid RN 04/10/2024 SHOP/CHAP Initial Eligibility Review [facility] [address] [place] [address] Doris Shahid, RN 04/06/2024 4:04 PM RESEARCH COMPUTING SPECIALIST - 04/09/2024 7:04 PM RESEARCH COMPUTING SPECIALIST Hospital Encounter [place] [address] Becka Kearney MD Ma, MD Rosalinda Dubon Caleb, MD Farrag, Johan Barron MD Altered mental status, unspecified altered mental status type (Primary Dx); Acute cystitis without hematuria; Hallucinations; Vascular dementia, unspecified dementia severity, unspecified whether behavioral, psychotic, or mood disturbance or anxiety (HCC) Discharge Disposition: Discharge to home, home health skilled care 03/31/2024 12:59 PM RESEARCH COMPUTING SPECIALIST - 04/01/2024 7:11 PM RESEARCH COMPUTING SPECIALIST Emergency [facility] Emergency Department [address] [place] [address] Stephen Cheng MD Cohn, MD Chelsey Aguayo, MD Elissa Salgado, MD Ermias Gan, Olivia Vaughan MD Constipation, unspecified constipation type (Primary Dx); Abdominal pain Discharge Disposition: Discharge to home or self care from Last 3 Months Immunizations Immunization Administration Dates Next Due H1N1 Inj Preservative Free 02/15/2009 INFLUENZA [id number] 12/02/2013 Influenza, Quadrivalent, Hig h Dose, Preservative [...] Varicella 03/04/2009 Varicella Zoster Immune Globulin 03/30/2009 Medical History Medical History Date Comments Atrial fibrillation ([facility]/HCC) (HCC) Atrial fibrillation Hx Other Medical Mild cognitive impairment Hypertension Hypertension Hx Other Medical CVA (Stroke) Diabetes mellitus (HCC) Diabetes Personal history of transien t ischemic attack (TIA), and cerebral infarction without residual deficits History of stroke - (Added b y TW Conv) Family history of ischemic h eart disease and other diseases of the circulatory system 11/16/2020 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 (HCC) 02/15/2015 Diabetes mellitus (HCC) Urinary tract infection with out hematuria, site unspecified Hypercalcemia Arthritis Stroke (HCC) Family History Medical History Relation Name Comments Hypertension Daughter Family history of hypertension - (Added by TW Conv) Heart attack Father Family history of myocardial infarction - (Added by TW Conv) Hypertension Father Family history of hypertension - (Added by TW Conv) Sudden Cardiac Father Family history of sudden cardiac (SCD) - (Added by TW Conv) Coronary artery disease Mother Fami ly history of coronary artery disease - (Added by TW Conv) Stroke Mother Stroke; /Family history of cerebrovascular accident (CVA) - (Added by TW Conv) Stroke Other Family history of cerebrovascular accident (CVA) - (Added by TW Conv) Stroke Sister 1 Stroke; Hypertension Sister 2 Family history of hypertension - (Added by TW Conv) Relation Name Status Comments Daughter Father Mother Other Sister 1 Sister 2 Social History Tobacco Use Types Packs/Day Years Used Date Smoking Tobacco: Former Smokeless Tobacco: Never Tobacco Cessation:Counseling Given: Not Answered [facility] Utilities Answer Date Recorded In the past 12 months has th e electric, gas, oil, or water company threatened to shut off services in your [...] often do you attend chur ch or yarsani services? Never 04/08/2024 Do you belong to any clubs o r organizations such as jewish groups, unions, fraternal or athletic groups, or [...] should administer the PHQ-9) 0 01/24/2024 [facility] - Occupational Stress [...] place to sleep or slept in a long term (including now)? No 06/28/2023 Housing Stability Vital Sign Answer Marquis e Recorded In the last 12 months, was t here a time when you were not able to pay the mortgage or rent on time? No 04/08/2024 In the past 12 months, how m any times have you moved where you were living? 0 04/08/2024 At any time in the past 12 m [facility], were you homeless or living in a long term (including now)? No 04/08/2024 Personal Safety Answer Date Recorded Have you ever been in or are you currently in a harmful physical or emotional relationship or is someone making you feel afraid or unsafe? Denies 04/07/2024 Sex and Gender Information Value Date Recorded Sex Assigned at Not on file Legal Sex Male 5:18 AM RESEARCH COMPUTING SPECIALIST Gender Identity Not on file Sexual Orientation Not on file Obstetrics History Last Filed Vital Signs Vital Sign Reading Time Taken Comments Blood Pressure 128/68 04/09/2024 5:52 PM RESEARCH COMPUTING SPECIALIST Pulse 65 04/09/2024 5:52 PM RESEARCH COMPUTING SPECIALIST Temperature 36.7 C (98.1 F) 04/09/2024 5:52 PM RESEARCH COMPUTING SPECIALIST Respiratory Rate 18 04/09/2024 5:52 PM RESEARCH COMPUTING SPECIALIST Oxygen Saturation 100% 04/09/2024 5:52 PM RESEARCH COMPUTING SPECIALIST Inhaled Oxygen Concentration - - Weight 73.4 kg (161 lb 13.1 oz) 04/07/2024 8:18 PM RESEARCH COMPUTING SPECIALIST Height 182.9 cm (6' 0.01 ) 04/07/2024 7:15 PM CS T Body Mass Index 21.94 04/07/2024 7:15 PM RESEARCH COMPUTING SPECIALIST Plan of Treatment Health Maintenance Due Date Last Done Comments Dilated Eye Exam 1936 Foot Exam 1936 Hepatitis B Screening 1954 Well Visit 65+ 2001 Zoster Vaccine (1 of 2) 04/29/2009 Influenza Vaccine (#1) 2023 3, 01/11/2018, 01/02/2018, Additional history exists Albumin Creatinine Ratio, Urine 03/21/2024 Hemoglobin A1C 05/28/2024 11/29/2023, 100 03/2022, 05/18/2020 Depression Screening 01/20/2025 01/21/2024, 11/28/2023, 09/23/2023, Additional history exists Lipid Panel 01/20/2025 01/21/2024, 100 03/2022, 05/18/2020, Additional history exists Fall Risk Assessment 04/09/2025 04/09/2024 eGFR 04/09/2025 04/09/2024, 07/2024, 04/07/2024, Additional history exists DTaP/Tdap/Td Vaccine (2 - Td or Tdap) 09/23/2027 09/22/2017, 12/24/2013, 12/24/2013, Additional history exists Pneumococcal vaccine 65+ Completed 017, 12/02/2016, 12/02/2014, Additional history exists Procedures Procedure Name Priority Date/Time Associated Diagnosis Comments POCT GLUCOSE DEVICE Routine 04/09/2024 4 :27 PM RESEARCH COMPUTING SPECIALIST POCT GLUCOSE DEVICE Routine 04/09/2024 1 1:21 AM RESEARCH COMPUTING SPECIALIST EGFR Timed 04/09/2024 10:36 AM RESEARCH COMPUTING SPECIALIST BASIC METABOLIC PANEL Timed 04/09/2024 10:36 AM RESEARCH COMPUTING SPECIALIST POCT GLUCOSE DEVICE Routine 04/09/2024 7 :19 AM RESEARCH COMPUTING SPECIALIST POCT GLUCOSE DEVICE Routine 04/09/2024 4 :37 AM RESEARCH COMPUTING SPECIALIST POCT GLUCOSE DEVICE Routine 04/09/2024 1 :01 AM RESEARCH COMPUTING SPECIALIST EGFR Routine 04/08/2024 11:11 PM RESEARCH COMPUTING SPECIALIST DIFFERENTIAL AUTO Routine 04/08/2024 11: 11 PM RESEARCH COMPUTING SPECIALIST CBC WITH AUTO DIFFERENTIAL Routine 04/08/2024 11:11 PM RESEARCH COMPUTING SPECIALIST BASIC METABOLIC PANEL Routine 04/08/2024 11:11 PM RESEARCH COMPUTING SPECIALIST POCT GLUCOSE DEVICE Routine 04/08/2024 8 :13 PM RESEARCH COMPUTING SPECIALIST POCT GLUCOSE DEVICE Routine 04/08/2024 4 :39 PM RESEARCH COMPUTING SPECIALIST POCT GLUCOSE DEVICE Routine 04/08/2024 1 1:34 AM RESEARCH COMPUTING SPECIALIST RETORT OPERATOR EVALUATE AND TREAT Routine 04/08/2024 10:47 AM RESEARCH COMPUTING SPECIALIST POCT GLUCOSE DEVICE Routine 04/08/2024 7 :11 AM RESEARCH COMPUTING SPECIALIST POCT GLUCOSE DEVICE Routine 04/08/2024 5 :04 AM RESEARCH COMPUTING SPECIALIST POCT GLUCOSE DEVICE Routine 04/08/2024 1 :46 AM RESEARCH COMPUTING SPECIALIST EGFR Routine 04/07/2024 11:19 PM RESEARCH COMPUTING SPECIALIST DIFFERENTIAL AUTO Timed 04/07/2024 11: 19 PM RESEARCH COMPUTING SPECIALIST CBC WITH AUTO DIFFERENTIAL Timed 04/07/2024 11:19 PM RESEARCH COMPUTING SPECIALIST PHOSPHORUS Timed 04/07/2024 11:19 PM RESEARCH COMPUTING SPECIALIST MAGNESIUM Timed 04/07/2024 11:19 PM RESEARCH COMPUTING SPECIALIST BASIC METABOLIC PANEL Routine 04/07/2024 11:19 PM RESEARCH COMPUTING SPECIALIST POCT GLUCOSE DEVICE Routine 04/07/2024 7 :43 PM RESEARCH COMPUTING SPECIALIST EGFR Timed 04/07/2024 6:21 PM RESEARCH COMPUTING SPECIALIST COMPREHENSIVE METABOLIC PANEL Timed 04/07/2024 6:21 PM RESEARCH COMPUTING SPECIALIST CBC WITHOUT DIFFERENTIAL Timed 04/07/2024 6:21 PM RESEARCH COMPUTING SPECIALIST POCT GLUCOSE DEVICE Routine 04/07/2024 2 :11 PM RESEARCH COMPUTING SPECIALIST US KIDNEY COMPLETE IP Routine 04/07/2024 11 :28 AM RESEARCH COMPUTING SPECIALIST POCT GLUCOSE DEVICE Routine 04/07/2024 8 :12 AM RESEARCH COMPUTING SPECIALIST POCT GLUCOSE DEVICE Routine 04/07/2024 4 :56 AM RESEARCH COMPUTING SPECIALIST URINALYSIS, MICROSCOPIC ONLY STAT 04/06/2024 9:03 PM RESEARCH COMPUTING SPECIALIST URINE CULTURE STAT 04/06/2024 9:03 PM RESEARCH COMPUTING SPECIALIST URINALYSIS AND REFLEX TO MICROSCOPIC AND CULTURE STAT 04/06/2024 9:03 PM RESEARCH COMPUTING SPECIALIST XR CHEST 1 VIEW ED 04/06/2024 7:58 PM RESEARCH COMPUTING SPECIALIST ECG 12-LEAD Routine 04/06/2024 7:35 PM RESEARCH COMPUTING SPECIALIST RESPIRATORY PATHOGEN PANEL Routine 04/06/2024 7:08 PM RESEARCH COMPUTING SPECIALIST POCT GLUCOSE DEVICE Routine 04/06/2024 6 :[address] HEAD WO CONTRAST ED 04/06/2024 5 :34 PM RESEARCH COMPUTING SPECIALIST EGFR STAT 04/06/2024 5:14 PM RESEARCH COMPUTING SPECIALIST DIFFERENTIAL AUTO STAT 04/06/2024 5:1 4 PM RESEARCH COMPUTING SPECIALIST SEPSIS LACTATE WITH REFLEX STAT 04/06/2024 5:14 PM RESEARCH COMPUTING SPECIALIST COMPREHENSIVE METABOLIC PANEL STAT 04/06/2024 5:14 PM RESEARCH COMPUTING SPECIALIST CBC WITH AUTO DIFFERENTIAL STAT 04/06/2024 5:14 PM RESEARCH COMPUTING SPECIALIST BLOOD CULTURE STAT 04/06/2024 5:14 PM RESEARCH COMPUTING SPECIALIST POCT GLUCOSE DEVICE Routine 04/01/2024 1 :37 PM RESEARCH COMPUTING SPECIALIST POCT GLUCOSE DEVICE Routine 04/01/2024 5 :20 AM RESEARCH COMPUTING SPECIALIST POCT GLUCOSE DEVICE Routine 04/01/2024 2 :38 AM RESEARCH COMPUTING SPECIALIST POCT GLUCOSE DEVICE Routine 03/31/2024 9 :48 PM RESEARCH COMPUTING SPECIALIST POCT GLUCOSE DEVICE Routine 03/31/2024 5 :[address] ABDOMEN PELVIS W CONTRAST ED 03/31/2024 4:15 PM RESEARCH COMPUTING SPECIALIST URINALYSIS, MICROSCOPIC ONLY Routine 03/31/2024 2:21 PM RESEARCH COMPUTING SPECIALIST URINE CULTURE Routine 03/31/2024 2:21 PM RESEARCH COMPUTING SPECIALIST URINALYSIS AND REFLEX TO MICROSCOPIC AND CULTURE Routine 03/31/2024 2:21 PM RESEARCH COMPUTING SPECIALIST POCT GLUCOSE DEVICE Routine 03/31/2024 2 :12 PM RESEARCH COMPUTING SPECIALIST EGFR STAT 03/31/2024 2:07 PM RESEARCH COMPUTING SPECIALIST DIFFERENTIAL AUTO STAT 03/31/2024 2:0 7 PM RESEARCH COMPUTING SPECIALIST CBC WITH AUTO DIFFERENTIAL STAT 03/31/2024 2:07 PM RESEARCH COMPUTING SPECIALIST PROTIME-INR STAT 03/31/2024 2:07 PM RESEARCH COMPUTING SPECIALIST HEPATIC FUNCTION PANEL STAT 03/31/2024 2:07 PM RESEARCH COMPUTING SPECIALIST BASIC METABOLIC PANEL STAT 03/31/2024 2:07 PM RESEARCH COMPUTING SPECIALIST LIPID PANEL STAT 01/21/2024 8:23 PM RESEARCH COMPUTING SPECIALIST HEMOGLOBIN A1C Routine 11/29/2023 8:54 PM CDT ALBUMIN CREATININE RATIO, URINE Routine 03/21/2023 12:32 PM RESEARCH COMPUTING SPECIALIST from Last 3 Months or Most Recently Relevant to Health Maintenance Results * POCT glucose (04/09/2024 4:27 PM RESEARCH COMPUTING SPECIALIST) [facility] Signature Glucose, POC 112 70 - 199 mg/dL Blood 04/09/2024 4:27 PM RESEARCH COMPUTING SPECIALIST 04/09/2024 4:27 PM RESEARCH COMPUTING SPECIALIST us Johan Oliver MD LAB POCT ORDERABLES - DEV ICE Final Result [facility] [place] [address] * POCT glucose (04/09/2024 11:21 AM RESEARCH COMPUTING SPECIALIST) Glucose, POC 143 70 - 199 mg/dL Blood 04/09/2024 11:2 1 AM RESEARCH COMPUTING SPECIALIST 04/09/2024 11:21 AM RESEARCH COMPUTING SPECIALIST Johan Oliver MD LAB POCT ORDERABLES - DEV ICE Final Result Performing Organization Address City/[facility]/ZIP Co de Phone Number [facility] Department [place] [address] * (ABNORMAL) eGFR (04/09/2024 10:36 AM RESEARCH COMPUTING SPECIALIST) [facility] eGFR 23(L) >=60 mL/min/1. 73 m2 [...] reviewed 2021. Blood 04/09/2024 10:3 6 AM RESEARCH COMPUTING SPECIALIST 04/09/2024 11:00 AM RESEARCH COMPUTING SPECIALIST Johan Oliver MD LAB BLOOD ORDERABLES Lis l Result Performing Organization Address City/[facility]/ZIP Co de Phone Number [facility] [place] [address] * (ABNORMAL) Basic metabolic panel (04/09/2024 10:36 AM RESEARCH COMPUTING SPECIALIST) Sodium 140 135 - 145 mmol/L Potassium, pl 3.7 3.3 - 4.9 mmol/L [facility] Chloride 110 97 - 110 mmol/L [facility] CO2 24 22 - 32 mmol/L [facility] Anion gap 6 2 - 15 mmol/L [facility] BUN 33(H) 6 - 25 mg/dL [facility] Creatinine 2.58(H) 0.80 - 1.30 mg/dL [facility] Glucose 133 70 - 199 mg/dL [facility] Comment: Interpretive Data Fasting glucose [...] 2022. Calcium 8.9 8.5 - 10.3 mg/dL [facility] Blood 04/09/2024 10:3 6 AM RESEARCH COMPUTING SPECIALIST 04/09/2024 11:00 AM RESEARCH COMPUTING SPECIALIST us Johan Oliver MD LAB BLOOD ORDERABLES Lis l Result Performing Organization Address City/[facility]/ZIP Co de Phone Number [facility] Department [place] [address] * POCT glucose (04/09/2024 7:19 AM RESEARCH COMPUTING SPECIALIST) Glucose, POC 101 70 - 199 mg/dL Blood 04/09/2024 7:19 AM RESEARCH COMPUTING SPECIALIST 04/09/2024 7:19 AM RESEARCH COMPUTING SPECIALIST Johan Oliver MD LAB POCT ORDERABLES - DEV ICE Final Result Performing Organization Address [facility]/ZIP Co de Phone Number [facility] Department [place] [address] * POCT glucose (04/09/2024 4:37 AM RESEARCH COMPUTING SPECIALIST) Glucose, POC 103 70 - 199 mg/dL Blood 04/09/2024 4:37 AM RESEARCH COMPUTING SPECIALIST 04/09/2024 4:37 AM RESEARCH COMPUTING SPECIALIST Johan Oliver MD LAB POCT ORDERABLES - DEV ICE Final Result [facility] [place] [address] * POCT glucose (04/09/2024 1:01 AM RESEARCH COMPUTING SPECIALIST) Glucose, POC 124 70 - 199 mg/dL Blood 04/09/2024 1:01 AM RESEARCH COMPUTING SPECIALIST 04/09/2024 1:01 AM RESEARCH COMPUTING SPECIALIST Johan Oliver MD LAB POCT ORDERABLES - DEV ICE Final Result Performing Organization Address City/[facility] [place] [address] * (ABNORMAL) eGFR (04/08/2024 11:11 PM RESEARCH COMPUTING SPECIALIST) eGFR 22(L) >=60 mL/min/1. 73 m2 Comment: [...] Inclusion of Race in Diagnosing Kidney Disease, ANALISA 2020). The CKD-EPI equation should not be used for patients with unstable renal function and has not been validated in children and those over 70. Current interpretive data was last reviewed 2021. Blood 04/08/2024 11:1 1 PM RESEARCH COMPUTING SPECIALIST 04/08/2024 11:32 PM RESEARCH COMPUTING SPECIALIST us Ling Farrell MD LAB BLOOD ORDERABLES Final Resul t [facility] [place] [address] * Differential, auto (04/08/2024 11:11 PM RESEARCH COMPUTING SPECIALIST) Neutrophil abs 3.0 1.5 - 6.5 K/cumm Imm gran abs 0.0 0.0 - 0.1 K/cumm [facility] Lymphocyte abs 1.3 0.8 - 3.3 K/cumm [facility] Monocyte abs 0.8 0.2 - 0.8 K/cumm [facility] Eosinophil abs 0.4 0.0 - 0.5 K/cumm [facility] Basophil abs 0.0 0.0 - 0.1 K/cumm [facility] Neutrophil pct 53.5 % [facility] Comment: Interpretive Data Percent cell count reference ranges are not reported, since discordance with absolute values may lead to misinterpretation of CBC data. Current Interpretive Data was last revised on 2017. Imm gran pct 0.7 % [facility] Comment: Interpretive Data Percent cell count reference ranges are not reported, since discordance with absolute values may lead to misinterpretation of CBC data. Current Interpretive Data was last revised on 2017. Lymphocyte pct 23.3 % [facility] Comment: Interpretive Data Percent cell count reference ranges are not reported, since discordance with absolute values may lead to misinterpretation of CBC data. Current Interpretive Data was last revised on 2017. Monocyte pct 14.6 % [facility] Comment: Interpretive Data Percent cell count reference ranges are not reported, since discordance with absolute values may lead to misinterpretation of CBC data. Current Interpretive Data was last revised on 2017. Eosinophil pct 7.2 % [facility] Comment: Interpretive Data Percent cell count reference ranges are not reported, since discordance with absolute values may lead to misinterpretation of CBC data. Current Interpretive Data was last revised on 2017. Basophil pct 0.7 % [facility] Comment: Interpretive Data Percent cell count reference ranges are not reported, since discordance with absolute values may lead to misinterpretation of CBC data. Current Interpretive Data was last revised on 2017. Blood 04/08/2024 11:1 1 PM RESEARCH COMPUTING SPECIALIST 04/08/2024 11:34 PM RESEARCH COMPUTING SPECIALIST us Johan Oliver MD LAB BLOOD ORDERABLES Lis joyner Result [facility] [place] [address] * (ABNORMAL) CBC with auto differential (04/08/2024 11:11 PM RESEARCH COMPUTING SPECIALIST) WBC 5.5 3.8 - 9.9 K/cumm Hgb 8.7(L) 13.0 - 17.5 g/dL [facility] Hct 26.7(L) 38.9 - 50.3 % [facility] Plt 110(L) 150 - 400 K/cumm [facility] MPV 10.0 9.1 - 12.3 fL [facility] RBC 2.76(L) 4.30 - 5.80 M/cumm [facility] MCV 96.7(H) 81.3 - 96.4 fL [facility] MCH 31.5 27.1 - 33.3 pg [facility] MCHC 32.6 32.3 - 35.7 g/dL [facility] [facility] CV 13.7 11.1 - 14.9 % [facility] RDW SD 48.7(H) 35.7 - 48.1 fL [facility] NRBC abs 0.00 0.00 - 0.01 K/cumm [facility] Blood 04/08/2024 11:1 1 PM RESEARCH COMPUTING SPECIALIST 04/08/2024 11:34 PM RESEARCH COMPUTING SPECIALIST us Johan Oliver MD LAB BLOOD ORDERABLES Lis joyner Result Performing Organization Address City/[facility]/ZIP Co de Phone Number [facility] [place] [address] * (ABNORMAL) Basic metabolic panel (04/08/2024 11:11 PM RESEARCH COMPUTING SPECIALIST) [facility] Sodium 139 135 - 145 mmol/L Potassium, pl 4.0 3.3 - 4.9 mmol/L [facility] Chloride 108 97 - 110 mmol/L [facility] CO2 25 22 - 32 mmol/L [facility] Anion gap 6 2 - 15 mmol/L [facility] BUN 34(H) 6 - 25 mg/dL [facility] Creatinine 2.73(H) 0.80 - 1.30 mg/dL [facility] Glucose 126 70 - 199 mg/dL [facility] Comment: Interpretive Data Fasting glucose [...] 2022. Calcium 8.8 8.5 - 10.3 mg/dL [facility] Blood 04/08/2024 11:1 1 PM RESEARCH COMPUTING SPECIALIST 04/08/2024 11:32 PM RESEARCH COMPUTING SPECIALIST us Ling Farrell MD LAB BLOOD ORDERABLES Final Resul t Performing Organization Address [facility] Co de Phone Number [facility] [place] [address] * POCT glucose (04/08/2024 8:13 PM RESEARCH COMPUTING SPECIALIST) Glucose, POC 156 70 - 199 mg/dL Blood 04/08/2024 8:13 PM RESEARCH COMPUTING SPECIALIST 04/08/2024 8:13 PM RESEARCH COMPUTING SPECIALIST Johan Oliver MD LAB POCT ORDERABLES - DEV ICE Final Result Performing Organization Address [facility] Co de Phone Number [facility] [place] [address] * POCT glucose (04/08/2024 4:39 PM RESEARCH COMPUTING SPECIALIST) Glucose, POC 182 70 - 199 mg/dL Blood 04/08/2024 4:39 PM RESEARCH COMPUTING SPECIALIST 04/08/2024 4:39 PM RESEARCH COMPUTING SPECIALIST Johan Oliver MD LAB POCT ORDERABLES - DEV ICE Final Result Performing Organization Address [facility] de Phone Number [facility] [place] [address] * POCT glucose (04/08/2024 11:34 AM RESEARCH COMPUTING SPECIALIST) Glucose, POC 185 70 - 199 mg/dL Blood 04/08/2024 11:3 4 AM RESEARCH COMPUTING SPECIALIST 04/08/2024 11:34 AM RESEARCH COMPUTING SPECIALIST Johan Oliver MD LAB POCT ORDERABLES - DEV ICE Final Result Performing Organization Address [facility] [place] [place] [address] * RETORT OPERATOR Evaluation and Treatment (04/08/2024 10:47 AM RESEARCH COMPUTING SPECIALIST) Narrative Regina Titus, RETORT OPERATOR - 04/08/2024 10:47 AM RESEARCH COMPUTING SPECIALIST Regina Titus, RETORT OPERATOR 04/08/2024 2:45 PM Speech-Language Pathology: Clinical Bedside Swallow HPI/PMH 88 y.o. male with a hx of vascular dementia, recurrent UTI, CKD (BL 2.5-2.7), Afib, T2DM who presented for AMS. RETORT OPERATOR hx: 07/03/23 bedside swallow at [facility] recommended regular/thin Respiratory/Intubation Status: room air Imaging: CXR 2/3: Mild bilateral lower lobe airspace opacities likely reflecting atelectasis versus sequela of aspiration. Small left and possible trace right pleural effusion. hCT 2/3: No acute intracranial process. Precautions: Fall PLOF:Baseline AOx2 & Bedbound Current Diet Order:Regular Baseline Diet: Regular General Information Karlxin Thompson 04/08/24 General Observations: Pt was seen [...] regular solids and thin liquids. No further RETORT OPERATOR indicated at this time. Please refer if [...] Aspiration Risk: No aspiration risk (170-200) Plan RETORT OPERATOR Frequency of Services during current admission: Discharge from this Service RETORT OPERATOR Recommendation (Add'l Services): No further RETORT OPERATOR indicated Next Visit Plan:No further ST warranted Please reference care plan for treatment goals, if indicated. Discharge Summary Statement If this is the last swallow therapy visit, this serves as the discharge summary. Rivas RIVAS RETORT OPERATOR ORDERABLES Final Result * POCT glucose (04/08/2024 7:11 AM RESEARCH COMPUTING SPECIALIST) Glucose, POC 116 70 - 199 mg/dL Blood 04/08/2024 7:11 AM RESEARCH COMPUTING SPECIALIST 04/08/2024 7:11 AM RESEARCH COMPUTING SPECIALIST Result [facility] Johan Oliver MD LAB POCT ORDERABLES - DEV ICE Final Result Performing Organization Address [facility] Co de Phone Number [facility] Department [place] [address] * POCT glucose (04/08/2024 5:04 AM RESEARCH COMPUTING SPECIALIST) Glucose, POC 113 70 - 199 mg/dL Blood 04/08/2024 5:04 AM RESEARCH COMPUTING SPECIALIST 04/08/2024 5:04 AM RESEARCH COMPUTING SPECIALIST Ling Farrell MD LAB POCT ORDERABLES - DEVICE Fin al Result Performing Organization Address [facility] Co de Phone Number [facility] [place] [address] * POCT glucose (04/08/2024 1:46 AM RESEARCH COMPUTING SPECIALIST) Glucose, POC 133 70 - 199 mg/dL Blood 04/08/2024 1:46 AM RESEARCH COMPUTING SPECIALIST 04/08/2024 1:46 AM RESEARCH COMPUTING SPECIALIST Lnig Farrell MD LAB POCT ORDERABLES - DEVICE Fin al Result Performing Organization Address [facility] Co de Phone Number [facility] Department [place] [address] * (ABNORMAL) eGFR (04/07/2024 11:19 PM RESEARCH COMPUTING SPECIALIST) eGFR 28(L) >=60 mL/min/1. 73 m2 Comment: [...] reviewed 2021. Blood 04/07/2024 11:1 9 PM RESEARCH COMPUTING SPECIALIST 04/08/2024 12:32 AM RESEARCH COMPUTING SPECIALIST Ling Farrell MD LAB BLOOD ORDERABLES Final Resul t Performing Organization Address City/[facility] Co de Phone Number [facility] [place] [address] * Differential, auto (04/07/2024 11:19 PM RESEARCH COMPUTING SPECIALIST) Neutrophil abs 4.7 1.5 - 6.5 K/cumm Imm gran abs 0.1 0.0 - 0.1 K/cumm [facility] Lymphocyte abs 0.8 0.8 - 3.3 K/cumm [facility] Monocyte abs 0.6 0.2 - 0.8 K/cumm [facility] Eosinophil abs 0.3 0.0 - 0.5 K/cumm [facility] Basophil abs 0.0 0.0 - 0.1 K/cumm [facility] Neutrophil pct 72.6 % [facility] Comment: Interpretive Data Percent cell count reference ranges are not reported, since discordance with absolute values may lead to misinterpretation of CBC data. Current Interpretive Data was last revised on 2017. Imm gran pct 0.8 % [facility] Comment: Interpretive Data Percent cell count reference ranges are not reported, since discordance with absolute values may lead to misinterpretation of CBC data. Current Interpretive Data was last revised on 2017. Lymphocyte pct 11.7 % [facility] Comment: Interpretive Data Percent cell count reference ranges are not reported, since discordance with absolute values may lead to misinterpretation of CBC data. Current Interpretive Data was last revised on 2017. Monocyte pct 9.7 % [facility] Comment: Interpretive Data Percent cell count reference ranges are not reported, since discordance with absolute values may lead to misinterpretation of CBC data. Current Interpretive Data was last revised on 2017. Eosinophil pct 4.6 % [facility] Comment: Interpretive Data Percent cell count reference ranges are not reported, since discordance with absolute values may lead to misinterpretation of CBC data. Current Interpretive Data was last revised on 2017. Basophil pct 0.6 % [facility] Comment: Interpretive Data Percent cell count reference ranges are not reported, since discordance with absolute values may lead to misinterpretation of CBC data. Current Interpretive Data was last revised on 2017. Blood 04/07/2024 11:1 9 PM RESEARCH COMPUTING SPECIALIST 04/08/2024 12:32 AM RESEARCH COMPUTING SPECIALIST us Ling Farrell MD LAB BLOOD ORDERABLES Final Resul t [facility] [place] [address] * (ABNORMAL) CBC with auto differential (04/07/2024 11:19 PM RESEARCH COMPUTING SPECIALIST) WBC 6.5 3.8 - 9.9 K/cumm Hgb 9.5(L) 13.0 - 17.5 g/dL [facility] Hct 29.6(L) 38.9 - 50.3 % [facility] Plt 109(L) 150 - 400 K/cumm [facility] MPV 11.1 9.1 - 12.3 fL [facility] RBC 2.98(L) 4.30 - 5.80 M/cumm [facility] MCV 99.3(H) 81.3 - 96.4 fL [facility] MCH 31.9 27.1 - 33.3 pg [facility] MCHC 32.1(L) 32.3 - 35.7 g/dL [facility] RDW CV 13.4 11.1 - 14.9 % [facility] RDW SD 49.1(H) 35.7 - 48.1 fL [facility] NRBC abs 0.00 0.00 - 0.01 K/cumm [facility] Blood 04/07/2024 11:1 9 PM RESEARCH COMPUTING SPECIALIST 04/08/2024 12:32 AM RESEARCH COMPUTING SPECIALIST Ling Farrell MD LAB BLOOD ORDERABLES Final Resul t Performing Organization Address City/[facility] Co de Phone Number [facility] [place] [address] * Phosphorus (04/07/2024 11:19 PM RESEARCH COMPUTING SPECIALIST) Pathologist [facility] Phosphorus, pl 2.5 2.3 - 4.5 mg/dL Blood 04/07/2024 11:1 9 PM RESEARCH COMPUTING SPECIALIST 04/08/2024 12:32 AM RESEARCH COMPUTING SPECIALIST Ling Farrell MD LAB BLOOD ORDERABLES Final Resul t Performing Organization Address City/[facility] Co de Phone Number [facility] [place] [address] * Magnesium (04/07/2024 11:19 PM RESEARCH COMPUTING SPECIALIST) Magnesium 2.1 1.4 - 2.5 mg/dL Blood 04/07/2024 11:1 9 PM RESEARCH COMPUTING SPECIALIST 04/08/2024 12:32 AM RESEARCH COMPUTING SPECIALIST Ling Farrell MD LAB BLOOD ORDERABLES Final Resul t Performing Organization Address [facility] Co de Phone Number [facility] [place] [address] * (ABNORMAL) Basic metabolic panel (04/07/2024 11:19 PM RESEARCH COMPUTING SPECIALIST) Pathologist [facility] Sodium 141 135 - 145 mmol/L Potassium, pl 3.6 3.3 - 4.9 mmol/L [facility] Chloride 111(H) 97 - 110 mmol/L [facility] CO2 24 22 - 32 mmol/L [facility] Anion gap 6 2 - 15 mmol/L [facility] BUN 30(H) 6 - 25 mg/dL [facility] Creatinine 2.23(H) 0.80 - 1.30 mg/dL [facility] Glucose 133 70 - 199 mg/dL [facility] Comment: Interpretive Data Fasting glucose [...] 2022. Calcium 8.9 8.5 - 10.3 mg/dL [facility] Blood 04/07/2024 11:1 9 PM RESEARCH COMPUTING SPECIALIST 04/08/2024 12:32 AM RESEARCH COMPUTING SPECIALIST Ling Farrell MD LAB BLOOD ORDERABLES Final Resul t Performing Organization Address [facility] Co de Phone Number [facility] [place] [address] * POCT glucose (04/07/2024 7:43 PM RESEARCH COMPUTING SPECIALIST) Glucose, POC 115 70 - 199 mg/dL Blood 04/07/2024 7:43 PM RESEARCH COMPUTING SPECIALIST 04/07/2024 7:43 PM RESEARCH COMPUTING SPECIALIST Ling Farrell MD LAB POCT ORDERABLES - DEVICE Fin al Result Performing Organization Address [facility] Co de Phone Number [facility] Department [place] [address] * (ABNORMAL) eGFR (04/07/2024 6:21 PM RESEARCH COMPUTING SPECIALIST) Pathologist [facility] eGFR 29(L) >=60 mL/min/1. 73 m2 Comment: [...] last reviewed 2021. Blood 04/07/2024 6:21 PM RESEARCH COMPUTING SPECIALIST 04/07/2024 6:34 PM RESEARCH COMPUTING SPECIALIST us Rivas RIVAS LAB BLOOD ORDERABLES Final R esult Performing Organization Address [facility]/ZIP Co de Phone Number [facility] [place] [address] * (ABNORMAL) CBC without differential (04/07/2024 6:21 PM RESEARCH COMPUTING SPECIALIST) [facility] WBC 7.0 3.8 - 9.9 K/cumm Hgb 11.4(L) 13.0 - 17.5 g/dL [facility] Hct 35.7(L) 38.9 - 50.3 % [facility] Plt 66(L) 150 - 400 K/cumm [facility] MPV 12.9(H) 9.1 - 12.3 fL [facility] RBC 3.59(L) 4.30 - 5.80 M/cumm [facility] MCV 99.4(H) 81.3 - 96.4 fL [facility] MCH 31.8 27.1 - 33.3 pg [facility] MCHC 31.9(L) 32.3 - 35.7 g/dL [facility] RDW CV 13.4 11.1 - 14.9 % [facility] RDW SD 49.1(H) 35.7 - 48.1 fL [facility] NRBC abs 0.00 0.00 - 0.01 K/cumm [facility] Blood 04/07/2024 6:21 PM RESEARCH COMPUTING SPECIALIST 04/07/2024 6:34 PM RESEARCH COMPUTING SPECIALIST us Rivas RIVAS LAB BLOOD ORDERABLES Final R esult [facility] [place] [address] * (ABNORMAL) Comprehensive metabolic panel (04/07/2024 6:21 PM RESEARCH COMPUTING SPECIALIST) [facility] Sodium 140 135 - 145 mmol/L Potassium, pl 4.1 3.3 - 4.9 mmol/L [facility] Chloride 110 97 - 110 mmol/L [facility] CO2 24 22 - 32 mmol/L [facility] Anion gap 6 2 - 15 mmol/L [facility] BUN 28(H) 6 - 25 mg/dL [facility] Creatinine 2.15(H) 0.80 - 1.30 mg/dL [facility] Glucose 108 70 - 199 mg/dL [facility] Comment: Interpretive Data Fasting glucose [...] 2022. Calcium 9.3 8.5 - 10.3 mg/dL [facility] Bilirubin, total 0.4 0.1 - 1.2 mg/dL [facility] Protein, pl 6.2(L) 6.5 - 8.5 g/dL [facility] Albumin 3.1(L) 3.5 - 5.0 g/dL [facility] Alk phos 90 40 - 130 Units/L [facility] ALT 7 7 - 55 Units/L [facility] AST 13 10 - 50 Units/L [facility] Blood 04/07/2024 6:21 PM RESEARCH COMPUTING SPECIALIST 04/07/2024 6:34 PM RESEARCH COMPUTING SPECIALIST Rivas RIVAS LAB BLOOD ORDERABLES Final R esult Performing Organization Address City/[facility]/ZIP Co de Phone Number [facility] [place] [address] * POCT glucose (04/07/2024 2:11 PM RESEARCH COMPUTING SPECIALIST) [facility] Signature Glucose, POC 99 70 - 199 mg/dL Blood 04/07/2024 2:11 PM RESEARCH COMPUTING SPECIALIST 04/07/2024 2:11 PM RESEARCH COMPUTING SPECIALIST Anthony Tellez MD LAB POCT ORDERABLES - DEVICE Fin al Result Performing Organization Address City/[facility]/ZIP Co de Phone Number [facility] [place] [address] * US Kidney Complete (04/07/2024 11:28 AM RESEARCH COMPUTING SPECIALIST) Anatomical Region Laterality Modality Kidney N/A Ultrasound 04/07/2024 11:2 6 AM RESEARCH COMPUTING SPECIALIST Impressions 04/07/2024 11:44 AM RESEARCH COMPUTING SPECIALIST 1. Normal parenchymal echogenicity. No hydronephrosis. 2. Nonobstructing left lower pole renal calculus, unchanged from recent prior CT. Dictated by: Devin Montes M.D. The radiology attending physician has personally reviewed this study, and had reviewed and/or edited this written report and agrees with it. Electronically signed by: Morteza Ignacio M.D. Narrative 04/07/2024 11:44 AM RESEARCH COMPUTING SPECIALIST EXAMINATION: COMPLETE RENAL SONOGRAM HISTORY: Abdominal pain [...] it. Electronically signed by: Morteza Ignacio M.D. Rivas RIVAS IMG US PROCEDURES Final Resu lt * POCT glucose (04/07/2024 8:12 AM RESEARCH COMPUTING SPECIALIST) Glucose, POC 106 70 - 199 mg/dL Blood 04/07/2024 8:12 AM RESEARCH COMPUTING SPECIALIST 04/07/2024 8:12 AM RESEARCH COMPUTING SPECIALIST Anthony Tellez MD LAB POCT ORDERABLES - DEVICE Fin al Result Performing Organization Address [facility] Co de Phone Number [facility] [place] [address] * POCT glucose (04/07/2024 4:56 AM RESEARCH COMPUTING SPECIALIST) Glucose, POC 116 70 - 199 mg/dL Blood 04/07/2024 4:56 AM RESEARCH COMPUTING SPECIALIST 04/07/2024 4:56 AM RESEARCH COMPUTING SPECIALIST Result [facility] Ling Farrell MD LAB POCT ORDERABLES - DEVICE Fin al Result Performing Organization Address [facility] de Phone Number [facility] [place] [address] * (ABNORMAL) Urinalysis reflex to microscopic and culture Urine (04/06/2024 9:03 PM RESEARCH COMPUTING SPECIALIST) Color, ur Yellow Yellow Clarity, ur Turbid(A) Clear [facility] Specific gravity, ur 1.015 1.003 - 1.030 [facility] pH, urine 6.5 [facility] Comment: Interpretive Data U rine pH is affected by diet, medications, systemic acid-base disturbances, and renal tubular function. pH may affect urinary stone formation. For example, urine pH below 6.0 may help reduce the tendency for calcium phosphate stones and pH greater than 6.0 may reduce the tendency for uric acid stone formation. Source: [facility] Current Interpretive Data was last revised on 2017 Protein, ur ql 2+(A) Negative [facility] Glucose, ur ql Negative Negative [facility] Ketones, ur Negative Negative [facility] Bilirubin, ur Negative Negative [facility] Blood, ur 2+(A) Negative [facility] Urobilinogen, ur <2.0 <2.0 mg/dL [facility] Nitrite, ur Positive(A) Negative [facility] Leukocyte esterase, ur 3+(A) Negative [facility] UA reflex comment Reflex to microscopic UA will be performed. [facility] Urine 04/06/2024 9:03 PM RESEARCH COMPUTING SPECIALIST 04/06/2024 9:11 PM RESEARCH COMPUTING SPECIALIST Becka Kearney MD LAB MICROBIOLOGY - GENERAL ORDE [facility] Final Result Performing Organization Address [facility] de Phone Number [facility] [place] [address] * (ABNORMAL) Urinalysis, microscopic only (04/06/2024 9:03 PM RESEARCH COMPUTING SPECIALIST) WBC, ur >50(A) 0 - 5 /HPF RBC, ur 21-50(A) 0 - 2 /HPF [facility] Bacteria, ur 4+(A) [facility] Culture Reflex Comment Reflex to urine culture will be performed. [facility] Urine 04/06/2024 9:03 PM RESEARCH COMPUTING SPECIALIST 04/06/2024 9:11 PM RESEARCH COMPUTING SPECIALIST Becka Kearney MD LAB URINE ORDERABLES Final Resu lt Performing Organization Address [facility] Co de Phone Number [facility] [place] [address] * (ABNORMAL) Urine culture Urine (04/06/2024 9:03 PM RESEARCH COMPUTING SPECIALIST) Report Final Report: Greater than or equal to 100,000 colonies/mL of Escherichia coli (.) Organism ESCHERICHIA COLI [facility] Urine 04/06/2024 9:03 PM RESEARCH COMPUTING SPECIALIST 04/06/2024 11:36 PM RESEARCH COMPUTING SPECIALIST Narrative [facility] - 04/09/2024 12:13 PM RESEARCH COMPUTING SPECIALIST Urine culture reflexed based upon urinalysis results. Testing performed by [facility] Microbiology Laboratory ([phone]) Organism Antibiotic Method Susceptibility Escherichia coli Ampicillin [...] INTERPRETATION Susceptible Escherichia coli Cefdinir INTERPRETATION Susceptible Becka Kearney MD LAB MICROBIOLOGY - GENERAL ORDE [facility] Final Result [facility] [place] [address] * XR Chest 1 Vw Portable (04/06/2024 7:58 PM RESEARCH COMPUTING SPECIALIST) Anatomical Region Laterality Modality Body, Chest N/A Computed Radiogr aphy 04/06/2024 8:04 PM RESEARCH COMPUTING SPECIALIST Impressions 04/06/2024 8:09 PM RESEARCH COMPUTING SPECIALIST FINDINGS/IMPRESSION: Mild bilateral lower lobe airspace opacities [...] Morteza Preston M.D. Narrative 04/06/2024 8:09 PM RESEARCH COMPUTING SPECIALIST EXAMINATION: XR CHEST 1 VIEW HISTORY: altered [...] it. Electronically signed by: Morteza Preston M.D. Becka Kearney MD IMG XR PROCEDURES Final Result * ECG 12-LEAD (04/06/2024 7:35 PM RESEARCH COMPUTING SPECIALIST) Narrative [facility] - 04/06/2024 7:35 PM RESEARCH COMPUTING SPECIALIST Becka Kearney MD 04/06/2024 7:37 PM ECG [...] Becka Kearney MD ECG ORDERABLES Final Result [facility] * Respiratory pathogen panel Nasopharyngeal (04/06/2024 7:08 PM RESEARCH COMPUTING SPECIALIST) Pathologist [facility] Influenza A RNA Not Detected Not Detected Influenza B RNA Not Detected Not Detected [facility] RSV RNA Not Detected Not Detected [facility] COVID-19 RNA Not Detected Not Detected [facility] Coronavirus 229E RNA Not Detected Not Detected [facility] Coronavirus HKU1 RNA Not Detected Not Detected [facility] Coronavirus NL63 RNA Not Detected Not Detected [facility] Coronavirus OC43 RNA Not Detected Not Detected [facility] Adenovirus DNA Not Detected Not Detected [facility] Metapneumovirus RNA Not Detected Not Detected [facility] Rhinovirus/Enterov irus RNA Not Detected Not Detected [facility] Parainfluenza 1 RNA Not Detected Not Detected [facility] Parainfluenza 2 RNA Not Detected Not Detected [facility] Parainfluenza 3 RNA Not Detected Not Detected [facility] Parainfluenza 4 RNA Not Detected Not Detected [facility] B. pertussis DNA Not Detected Not Detected [facility] B. parapertussis DNA Not Detected Not Detected [facility] C. pneumoniae DNA Not Detected Not Detected [facility] M. pneumoniae DNA Not Detected Not Detected [facility] Nasopharyngeal 04/06/2024 7: 08 PM RESEARCH COMPUTING SPECIALIST 04/06/2024 7:52 PM RESEARCH COMPUTING SPECIALIST Narrative [facility] - 04/06/2024 9:12 PM RESEARCH COMPUTING SPECIALIST Is the Patient experiencing symptoms consistent with COVID?->Yes Surveillance testing for transplant patient?->No Interpretive Data The [employer] FilmArray Respiratory Panel (RP2.1) assay is a [...] assay has FDA clearance for testing of INS[employer]OR [employer] swabs. The performance of additional specimen types has been assessed by the performing laboratory. The performance characteristics of this assay have been determined by [facility] Molecular Infectious Disease Laboratory. Current interpretive data was last revised on 21. us Heather Mcnally MD LAB MICROBIOLOGY - GENER AL ORDERABLES Final Result Performing Organization Address City/[facility] Co de Phone Number [facility] [place] [address] * POCT glucose (04/06/2024 6:00 PM RESEARCH COMPUTING SPECIALIST) Glucose, POC 198 70 - 199 mg/dL Blood 04/06/2024 6:00 PM RESEARCH COMPUTING SPECIALIST 04/06/2024 6:00 PM RESEARCH COMPUTING SPECIALIST Becka Kearney MD LAB POCT ORDERABLES - DEVICE Fi nal Result Performing Organization Address [facility] de Phone Number [facility] [place] [address] * CT Head WO Contrast (04/06/2024 5:34 PM RESEARCH COMPUTING SPECIALIST) Anatomical Region Laterality Modality Head and Neck N/A Computed Tomogra phy 04/06/2024 5:41 PM RESEARCH COMPUTING SPECIALIST Impressions 04/06/2024 6:21 PM RESEARCH COMPUTING SPECIALIST 1. No acute intracranial process. 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 Dictated by: Yecenia Sadler D.O. The radiology attending physician has personally reviewed this study, and had reviewed and/or edited this written report and agrees with it. Electronically signed by: Dea Monae MD, PhD Narrative 04/06/2024 6:21 PM RESEARCH COMPUTING SPECIALIST EXAMINATION: CT head without contrast HISTORY: Mental [...] Sepsis Lactate w/ Reflex (04/06/2024 5:14 PM RESEARCH COMPUTING SPECIALIST) Sepsis Lactate 1.4 0.7 - 2.0 mmol/L Blood 04/06/2024 5:14 PM RESEARCH COMPUTING SPECIALIST 04/06/2024 5:25 PM RESEARCH COMPUTING SPECIALIST Becka Kearney MD LAB BLOOD ORDERABLES Final Resu lt [facility] [place] [address] * (ABNORMAL) eGFR (04/06/2024 5:14 PM RESEARCH COMPUTING SPECIALIST) Pathologist [facility] eGFR 28(L) >=60 mL/min/1. 73 m2 Comment: [...] last reviewed 2021. Blood 04/06/2024 5:14 PM RESEARCH COMPUTING SPECIALIST 04/06/2024 5:37 PM RESEARCH COMPUTING SPECIALIST us Becka Kearney MD LAB BLOOD ORDERABLES Final Resu lt [facility] [place] [address] * Differential, auto (04/06/2024 5:14 PM RESEARCH COMPUTING SPECIALIST) [facility] Neutrophil abs 3.5 1.5 - 6.5 K/cumm Imm gran abs 0.1 0.0 - 0.1 K/cumm [facility] Lymphocyte abs 1.0 0.8 - 3.3 K/cumm [facility] Monocyte abs 0.7 0.2 - 0.8 K/cumm [facility] Eosinophil abs 0.4 0.0 - 0.5 K/cumm [facility] Basophil abs 0.1 0.0 - 0.1 K/cumm [facility] Neutrophil pct 61.2 % [facility] Comment: Interpretive Data Percent cell count reference ranges are not reported, since discordance with absolute values may lead to misinterpretation of CBC data. Current Interpretive Data was last revised on 2017. Imm gran pct 1.1 % [facility] Comment: Interpretive Data Percent cell count reference ranges are not reported, since discordance with absolute values may lead to misinterpretation of CBC data. Current Interpretive Data was last revised on 2017. Lymphocyte pct 17.9 % [facility] Comment: Interpretive Data Percent cell count reference ranges are not reported, since discordance with absolute values may lead to misinterpretation of CBC data. Current Interpretive Data was last revised on 2017. Monocyte pct 12.3 % [facility] Comment: Interpretive Data Percent cell count reference ranges are not reported, since discordance with absolute values may lead to misinterpretation of CBC data. Current Interpretive Data was last revised on 2017. Eosinophil pct 6.6 % [facility] Comment: Interpretive Data Percent cell count reference ranges are not reported, since discordance with absolute values may lead to misinterpretation of CBC data. Current Interpretive Data was last revised on 2017. Basophil pct 0.9 % [facility] Comment: Interpretive Data Percent cell count reference ranges are not reported, since discordance with absolute values may lead to misinterpretation of CBC data. Current Interpretive Data was last revised on 2017. Blood 04/06/2024 5:14 PM RESEARCH COMPUTING SPECIALIST 04/06/2024 5:26 PM RESEARCH COMPUTING SPECIALIST us Becka Kearney MD LAB BLOOD ORDERABLES Final Resu lt [facility] Department of Laboratories [place], [place] [id number] * (ABNORMAL) CBC with auto differential (04/06/2024 5:14 PM RESEARCH COMPUTING SPECIALIST) WBC 5.6 3.8 - 9.9 K/cumm Hgb 9.7(L) 13.0 - 17.5 g/dL [facility] Hct 28.9(L) 38.9 - 50.3 % [facility] Plt 98(L) 150 - 400 K/cumm [facility] Comment:No clot detected in sample. MPV 10.9 9.1 - 12.3 fL [facility] RBC 3.00(L) 4.30 - 5.80 M/cumm [facility] MCV 96.3 81.3 - 96.4 fL [facility] MCH 32.3 27.1 - 33.3 pg [facility] MCHC 33.6 32.3 - 35.7 g/dL [facility] RDW CV 13.6 11.1 - 14.9 % [facility] RDW SD 48.6(H) 35.7 - 48.1 fL [facility] NRBC abs 0.00 0.00 - 0.01 K/cumm [facility] Blood (Blood, Venous) 04/06/2024 5:14 PM RESEARCH COMPUTING SPECIALIST 04/06/2024 5:26 PM RESEARCH COMPUTING SPECIALIST Becka Kearney MD LAB BLOOD ORDERABLES Final Resu lt [facility] [place] [address] * Blood culture Blood (04/06/2024 5:14 PM RESEARCH COMPUTING SPECIALIST) Report Final Report: No growth Blood 04/06/2024 5:14 PM RESEARCH COMPUTING SPECIALIST 04/06/2024 5:41 PM RESEARCH COMPUTING SPECIALIST Narrative [facility] - 04/11/2024 7:01 AM RESEARCH COMPUTING SPECIALIST Collection->Peripheral 1. Blood cultures are incubated for [...] performance characteristics have been verified by the [facility]. For questions about this culture, contact the Microbiology Laboratory at [phone]. Interpretive data was last revised on 23. Becka Kearney MD LAB MICROBIOLOGY - GENERAL [place]ISABETH PARK Final Result [facility] [place] [address] * (ABNORMAL) Comprehensive metabolic panel (04/06/2024 5:14 PM RESEARCH COMPUTING SPECIALIST) Sodium 141 135 - 145 mmol/L Potassium, pl 3.7 3.3 - 4.9 mmol/L [facility] Chloride 109 97 - 110 mmol/L [facility] CO2 25 22 - 32 mmol/L [facility] Anion gap 7 2 - 15 mmol/L [facility] BUN 30(H) 6 - 25 mg/dL [facility] Creatinine 2.22(H) 0.80 - 1.30 mg/dL [facility] Glucose 185 70 - 199 mg/dL [facility] Comment: Interpretive Data Fasting glucose [...] 2022. Calcium 9.2 8.5 - 10.3 mg/dL [facility] Bilirubin, total 0.3 0.1 - 1.2 mg/dL [facility] Protein, pl 5.8(L) 6.5 - 8.5 g/dL [facility] Albumin 3.0(L) 3.5 - 5.0 g/dL [facility] Alk phos 72 40 - 130 Units/L [facility] ALT 5(L) 7 - 55 Units/L [facility] AST 13 10 - 50 Units/L [facility] Blood (Blood, Venous) 04/06/2024 5:14 PM RESEARCH COMPUTING SPECIALIST 04/06/2024 5:26 PM RESEARCH COMPUTING SPECIALIST us Becka Kearney MD LAB BLOOD ORDERABLES Final Resu lt Performing Organization Address [facility]/ZIP Co de Phone Number [facility] Department [place] [address] * POCT glucose (04/01/2024 1:37 PM RESEARCH COMPUTING SPECIALIST) Glucose, POC 107 70 - 199 mg/dL Blood 04/01/2024 1:37 PM RESEARCH COMPUTING SPECIALIST 04/01/2024 1:37 PM RESEARCH COMPUTING SPECIALIST us Charles Bowers MD LAB POCT ORDERABLES - ROSE CE Final Result Performing Organization Address [facility] Co de Phone Number [facility] Department [place] [address] * POCT glucose (04/01/2024 5:20 AM RESEARCH COMPUTING SPECIALIST) Glucose, POC 103 70 - 199 mg/dL Blood 04/01/2024 5:20 AM RESEARCH COMPUTING SPECIALIST 04/01/2024 5:20 AM RESEARCH COMPUTING SPECIALIST us Higinio Barbosa MD LAB POCT ORDERABLES - DEVICE Fin al Result Performing Organization Address [facility] Co de Phone Number [facility] [place] [address] * POCT glucose (04/01/2024 2:38 AM RESEARCH COMPUTING SPECIALIST) Glucose, POC 97 70 - 199 mg/dL Blood 04/01/2024 2:38 AM RESEARCH COMPUTING SPECIALIST 04/01/2024 2:38 AM RESEARCH COMPUTING SPECIALIST Higinio Barbosa MD LAB POCT ORDERABLES - DEVICE Fin al Result Performing Organization Address [facility] de Phone Number [facility] [place] [address] * POCT glucose (03/31/2024 9:48 PM RESEARCH COMPUTING SPECIALIST) Glucose, POC 118 70 - 199 mg/dL Blood 03/31/2024 9:48 PM RESEARCH COMPUTING SPECIALIST 03/31/2024 9:48 PM RESEARCH COMPUTING SPECIALIST Sanket Gillespie MD LAB POCT ORDERABLES - ROSE CE Final Result Performing Organization Address [facility] de Phone Number [facility] [place] [address] * POCT glucose (03/31/2024 5:18 PM RESEARCH COMPUTING SPECIALIST) Glucose, POC 120 70 - 199 mg/dL Blood 03/31/2024 5:1 8 PM RESEARCH COMPUTING SPECIALIST 03/31/2024 5:18 PM RESEARCH COMPUTING SPECIALIST Sanket Gillespie MD LAB POCT ORDERABLES - ROSE CE Final Result Performing Organization Address [facility] de Phone Number [facility] [place] [address] * CT Abdomen Pelvis W Contrast (03/31/2024 4:15 PM RESEARCH COMPUTING SPECIALIST) Anatomical Region Laterality Modality Body N/A Computed Tomogra phy 03/31/2024 4:38 PM RESEARCH COMPUTING SPECIALIST Impressions 03/31/2024 4:38 PM RESEARCH COMPUTING SPECIALIST 1. Large colorectal stool volume with mucosal [...] Yohan Roman M.D. Narrative 03/31/2024 4:38 PM RESEARCH COMPUTING SPECIALIST EXAMINATION: Computed tomography of the abdomen and [...] stone. Electronically signed by: Yohan Roman M.D. Keyon Bautista MD IMG CT PROCEDURES Final Result * (ABNORMAL) Urinalysis reflex to microscopic and culture Urine (03/31/2024 2:21 PM RESEARCH COMPUTING SPECIALIST) Color, ur Yellow Yellow Clarity, ur Cloudy(A) Clear [facility] Specific gravity, ur 1.020 1.003 - 1.030 [facility] pH, urine 6.0 [facility] Comment: Interpretive Data U rine pH is affected by diet, medications, systemic acid-base disturbances, and renal tubular function. pH may affect urinary stone formation. For example, urine pH below 6.0 may help reduce the tendency for calcium phosphate stones and pH greater than 6.0 may reduce the tendency for uric acid stone formation. Source: [facility] [employer] Current Interpretive Data was last revised on 2017 Protein, ur ql 2+(A) Negative [facility] Glucose, ur ql Negative Negative [facility] Ketones, ur Negative Negative [facility] Bilirubin, ur Negative Negative [facility] Blood, ur 1+(A) Negative [facility] Urobilinogen, ur <2.0 <2.0 mg/dL [facility] Nitrite, ur Negative Negative [facility] Leukocyte esterase, ur 3+(A) Negative [facility] UA reflex comment Reflex to microscopic UA will be performed. [facility] Urine 03/31/2024 2:21 PM RESEARCH COMPUTING SPECIALIST 03/31/2024 2:42 PM RESEARCH COMPUTING SPECIALIST us Keyon Bautista MD LAB MICROBIOLOGY - GENERAL ORDE XAVIER Final Result [facility] [place] [address] * (ABNORMAL) Urinalysis, microscopic only (03/31/2024 2:21 PM RESEARCH COMPUTING SPECIALIST) WBC, ur >50(A) 0 - 5 /HPF RBC, ur 6-10(A) 0 - 2 /HPF [facility] Epithelial cells, squamous, ur 1-5 0 - 5 /HPF [facility] Yeast, ur 2+(A) [facility] Mucous, ur Present(A) [facility] Hyaline casts, ur 1-5 0 - 10 /LPF [facility] Culture Reflex Comment Reflex to urine culture will be performed. [facility] Urine 03/31/2024 2:21 PM RESEARCH COMPUTING SPECIALIST 03/31/2024 2:42 PM RESEARCH COMPUTING SPECIALIST us Keyon Bautista MD LAB URINE ORDERABLES Final Resu lt Performing Organization Address [facility] Co de Phone Number [facility] [place] [address] * Urine culture Urine (03/31/2024 2:21 PM RESEARCH COMPUTING SPECIALIST) Report Final Report: Less than 100,000 colonies/mL (clinically insignificant growth based on current clinical standards) Organism (CLINICALLY INSIGNIFICANT GROWTH [facility] Urine 03/31/2024 2:21 PM RESEARCH COMPUTING SPECIALIST 03/31/2024 3:42 PM RESEARCH COMPUTING SPECIALIST Narrative [facility] - 04/01/2024 4:48 PM RESEARCH COMPUTING SPECIALIST Urine culture reflexed based upon urinalysis results. Testing performed by [facility] ([phone]) us Keyon Bautista MD LAB MICROBIOLOGY - GENERAL [place]ARK Final Result Performing Organization Address [facility] Co de Phone Number [facility] Department [place] [address] * POCT glucose (03/31/2024 2:12 PM RESEARCH COMPUTING SPECIALIST) Glucose, POC 160 70 - 199 mg/dL Blood 03/31/2024 2:12 PM RESEARCH COMPUTING SPECIALIST 03/31/2024 2:12 PM RESEARCH COMPUTING SPECIALIST us Stephen Cheng MD LAB POCT ORDERABLES - D KRIS Final Result Performing Organization Address [facility] Co de Phone Number [facility] [place] [address] * (ABNORMAL) eGFR (03/31/2024 2:07 PM RESEARCH COMPUTING SPECIALIST) Pathologist [facility] eGFR 29(L) >=60 mL/min/1. 73 m2 Comment: [...] last reviewed 2021. Blood 03/31/2024 2:07 PM RESEARCH COMPUTING SPECIALIST 03/31/2024 2:23 PM RESEARCH COMPUTING SPECIALIST us Keyon Bautista MD LAB BLOOD ORDERABLES Final Resu lt [facility] [place] [address] * Differential, auto (03/31/2024 2:07 PM RESEARCH COMPUTING SPECIALIST) Pathologist [facility] Neutrophil abs 4.8 1.5 - 6.5 K/cumm Imm gran abs 0.0 0.0 - 0.1 K/cumm [facility] Lymphocyte abs 0.8 0.8 - 3.3 K/cumm [facility] Monocyte abs 0.4 0.2 - 0.8 K/cumm [facility] Eosinophil abs 0.0 0.0 - 0.5 K/cumm [facility] Basophil abs 0.0 0.0 - 0.1 K/cumm [facility] Neutrophil pct 78.4 % [facility] Comment: Interpretive Data Percent cell count reference ranges are not reported, since discordance with absolute values may lead to misinterpretation of CBC data. Current Interpretive Data was last revised on 2017. Imm gran pct 0.7 % [facility] Comment: Interpretive Data Percent cell count reference ranges are not reported, since discordance with absolute values may lead to misinterpretation of CBC data. Current Interpretive Data was last revised on 2017. Lymphocyte pct 13.4 % [facility] Comment: Interpretive Data Percent cell count reference ranges are not reported, since discordance with absolute values may lead to misinterpretation of CBC data. Current Interpretive Data was last revised on 2017. Monocyte pct 7.0 % [facility] Comment: Interpretive Data Percent cell count reference ranges are not reported, since discordance with absolute values may lead to misinterpretation of CBC data. Current Interpretive Data was last revised on 2017. Eosinophil pct 0.2 % [facility] Comment: Interpretive Data Percent cell count reference ranges are not reported, since discordance with absolute values may lead to misinterpretation of CBC data. Current Interpretive Data was last revised on 2017. Basophil pct 0.3 % [facility] Comment: Interpretive Data Percent cell count reference ranges are not reported, since discordance with absolute values may lead to misinterpretation of CBC data. Current Interpretive Data was last revised on 2017. Blood 03/31/2024 2:07 PM RESEARCH COMPUTING SPECIALIST 03/31/2024 2:23 PM RESEARCH COMPUTING SPECIALIST us Keyon Bautista MD LAB BLOOD ORDERABLES Final Resu lt [facility] [place] [address] * (ABNORMAL) CBC with auto differential (03/31/2024 2:07 PM RESEARCH COMPUTING SPECIALIST) WBC 6.1 3.8 - 9.9 K/cumm Hgb 10.5(L) 13.0 - 17.5 g/dL [facility] Hct 31.0(L) 38.9 - 50.3 % [facility] Plt 120(L) 150 - 400 K/cumm [facility] MPV 11.7 9.1 - 12.3 fL [facility] RBC 3.28(L) 4.30 - 5.80 M/cumm [facility] MCV 94.5 81.3 - 96.4 fL [facility] MCH 32.0 27.1 - 33.3 pg [facility] MCHC 33.9 32.3 - 35.7 g/dL [facility] RDW CV 13.4 11.1 - 14.9 % [facility] RDW SD 46.4 35.7 - 48.1 fL [facility] NRBC abs 0.00 0.00 - 0.01 K/cumm [facility] Blood 03/31/2024 2:07 PM RESEARCH COMPUTING SPECIALIST 03/31/2024 2:23 PM RESEARCH COMPUTING SPECIALIST us Keyon Bautista MD LAB BLOOD ORDERABLES Final Resu lt Performing Organization Address City/[facility]/ZIP Co de Phone Number [facility] [place] [address] * Protime-INR (03/31/2024 2:07 PM RESEARCH COMPUTING SPECIALIST) PT 11.4 9.7 - 13.0 sec INR 1.05 0.90 - 1.20 [facility] Comment: Interpretive data Oral anticoagulant therapeutic ranges: Venous thromboembolism prophylaxis or treatment: 2.0-3.0 CARDIOLOGY Standard range: 2.0-3.0 High-intensity range: 2.5-3.5 Refer to indication-specific guidelines for appropriate target ranges for prosthetic heart valve replacement. Current interpretive data was last revised on 2019. Blood 03/31/2024 2:07 PM RESEARCH COMPUTING SPECIALIST 03/31/2024 2:27 PM RESEARCH COMPUTING SPECIALIST us Keyon Bautista MD LAB BLOOD ORDERABLES Final [facility] [place] [address] * (ABNORMAL) Hepatic function panel (03/31/2024 2:07 PM RESEARCH COMPUTING SPECIALIST) [facility] Bilirubin, total 0.4 0.1 - 1.2 mg/dL Bilirubin, direct <0.2 0.1 - 0.3 mg/dL [facility] Comment:Hemolyzed; result ma y be falsely decreased Protein, pl 6.4(L) 6.5 - 8.5 g/dL [facility] Albumin 3.4(L) 3.5 - 5.0 g/dL [facility] Alk phos 74 40 - 130 Units/L [facility] ALT 9 7 - 55 Units/L [facility] AST 21 10 - 50 Units/L [facility] Comment:Hemolyzed; result ma y be falsely elevated Blood 03/31/2024 2:07 PM RESEARCH COMPUTING SPECIALIST 03/31/2024 2:23 PM RESEARCH COMPUTING SPECIALIST us Keyon Bautista MD LAB BLOOD ORDERABLES Final Resu lt [facility] [place] [address] * (ABNORMAL) Basic metabolic panel (03/31/2024 2:07 PM RESEARCH COMPUTING SPECIALIST) [facility] Sodium 140 135 - 145 mmol/L Potassium, pl 3.9 3.3 - 4.9 mmol/L [facility] Comment:Hemolyzed; Potassium value may be falsely elevated by as much as 0.3-0.5 mmol/L. Suggest redraw and reanalysis. Chloride 106 97 - 110 mmol/L [facility] CO2 23 22 - 32 mmol/L [facility] Anion gap 11 2 - 15 mmol/L [facility] BUN 39(H) 6 - 25 mg/dL [facility] Creatinine 2.16(H) 0.80 - 1.30 mg/dL [facility] Glucose 143 70 - 199 mg/dL [facility] Comment: Interpretive Data Fasting glucose [...] 2022. Calcium 10.3 8.5 - 10.3 mg/dL [facility] Blood 03/31/2024 2:07 PM RESEARCH COMPUTING SPECIALIST 03/31/2024 2:23 PM RESEARCH COMPUTING SPECIALIST us Keyon Bautista MD LAB BLOOD ORDERABLES Final Resu lt [facility] [place] [address] * (ABNORMAL) Lipid panel (01/21/2024 8:23 PM RESEARCH COMPUTING SPECIALIST) Cholesterol 156 30 - 199 mg/dL Comment: [...] revised on 2017. Triglycerides 76 <=149 mg/dL [facility] Comment: Interpretive Data Ages < [...] revised on 2017. HDL 38(L) >=40 mg/dL [facility] Comment: Interpretive Data Ages < or [...] 2017. LDL, calculated 103 <=129 mg/dL [facility] Comment: Interpretive Data Ages < or [...] revised on 2023. Non-HDL Cholesterol 118 mg/dL [facility] Comment: Interpretive Data Ages < or [...] last revised on 2017. Chol/HDL ratio 4 [facility] Blood 01/21/2024 8:23 PM RESEARCH COMPUTING SPECIALIST 01/21/2024 8:40 PM RESEARCH COMPUTING SPECIALIST Result [facility] Nacho Hernandez MD LAB BLOOD ORDERABLES Final Re sult Performing Organization Address [facility] de Phone Number [facility] [place] [address] * Hemoglobin A1c (11/29/2023 8:54 PM CDT) [facility] Hgb A1C 5.2 4.0 - 5.6 % Estimated Average Glucose 103 mg/dL [facility] Comment: The ADA recommends reporting an estimated Average Glucose (eAG) with all Hemoglobin A1c results using the equation derived from a study of 507 normal and diabetic adults. Minority populations were underrepresented and children were not included. (Diabetes Care 2020; 43(S1): S66-S76). The eAG is not equivalent to a fasting glucose. Blood 11/29/2023 8:54 PM CDT 11/29/2023 9:15 PM CDT Result [facility] Lori Mckenzie MD LAB BLOOD ORDERABLES Lis l Result Performing Organization Address [facility] de Phone Number [facility] [place] [address] * (ABNORMAL) Albumin Creatinine Ratio, Urine (03/21/2023 12:32 PM RESEARCH COMPUTING SPECIALIST) [facility] Albumin Ur 64.2 mg/L [facility] Comment: Interpretive Data No reference range established. Current interpretive data was last revised 2018. Creatinine Ur 77.7 mg/dL [facility] Comment: Interpretive Data No reference range established. Current interpretive data was last revised 2018. 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 Review for flag removal can begin on 05/27/24. 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
--- OUTSIDE RECORDS SUMMARY | 2024-05-01 14:49 | XMS_ITS ---
Author Organization [facility] Address [address] [place] [address] Care Team Providers Care Candle Making Supervisor Name Role Phone Miguel Ángel Vigil Primary Care Provider REASON FOR VISIT URI Social History Sex Assigned At : Social History Observation Description Sex Assigned At Male Encounters Encounter Location Date Provider Diagnosis [address] [place] [address] 04/30/2024 Miguel Ángel Vigil Plan Of Treatment No Information Progress Notes * Karl WHITEHEAD EDOB:[birth year] (88 yo M)Acc No.[id number]:04/30/2024 Patient: Riley Karl PIERSON :1935 A ge:88 Y S ex:Male Address:[address] [place] [id number] * true * Date: Generated for Omairai rosangela/Gonzalo/eTransmitting on: 0 05/01/2024 02:49 PM ELECTRONIC ENGRAVER
--- OUTSIDE RECORDS SUMMARY | 2024-05-01 14:49 | XMS_ITS ---
Author Organization [facility] Address [address] [place] [address] Care Team Providers Care Appliance Installer Name Role Phone Miguel Ángel Vigil Primary Care Provider Allergies No Known Allergies REASON FOR VISIT r/s from 04/22/24 Medications Medication SIG (Take, Route, Frequency, Duration) Notes Start Date End Date Status Jardiance 10 MG 1 tablet Orally Once a day for 30 days Active Narcan 4 MG/0.1ML 4mg as needed for op ioid overdose Nasally once 05/07/2023 Active Misc. Devices - 34 MM CONDOM CATHETE R EXTERNALLY DAILY 12/20/2022 Active Misc. Devices - CONDOM CATHETER 36 M M EXTERNALLY DAILY Active Misc. Devices - CLEANING WIPES EXTERNALLY DAILY Active Pen [place] 5/16 31G X 8 MM ONE NEEDLE SC DAILY 07/26/2022 Active Bisacodyl 5 MG 1 tablet as needed Orally TWICE DAILY Active DuoDerm Signal Dressing - apply to presacral area Externally every two days for 30 days 04/27/2024 Active Misc. Devices - LIVE BAG EXTERNALLY DAILY Active Misc. Devices - 18 INCHES EXTNSION TUBING FOR CONDOM CATHETER [id number] DAILY Active Aspirin Adult Low Dose 81 MG 1 tablet Orally Once a day Active amLODIPine Besylate 5 MG 1 tablet Orally Once a day for 90 days Active Finasteride 5 mg TAKE 1 TABLET BY NAA DAILY for 30 Active Tamsulosin HCl 0.4 MG 1 capsule Orally t wice a day for 30 days Active HYDROcodone-Acetaminophe n 5-325 MG 1 tablet Orally TWICE A DAY As needed SEVERE JOINT PAIN 04/16/2024 Active FeroSul 325 (65 Fe) mg TAKE [...] UNTIL RESOLVED Externally Once a day Not-Taking Sodium Bicarbonate 650 mg TAKE 1 TABLET BY MOUTH TWICE A DAY BEFORE MEALS for 30 Active Pravastatin Sodium 40 mg TAKE 1 TABLET B Y MOUTH AT BEDTIME for 30 Active Carvedilol 25 MG 1 tablet with food Orally Twice a day for 90 days Active Ondansetron 4 MG 1 tablet on the tongue and allow to dissolve Orally TWICE A DAY As needed NAUSEA Active Methenamine Hippurate 1 GM TAKE 1 TABLET BY MOUTH DAILY FOR PREVENTION OF URINARY TRACT INFECTION for 30 Active Ventolin HFA 108 (90 Base) MCG/ACT 2 puffs as needed for shortness of breath Inhalation every 4 hrs 05/07/2023 Active Social History Tobacco Use: Social History Observation Description Date Details (start date - stop date) Never Smoker NA - NA Sex Assigned At : Social History Observation Description Sex Assigned At Male Tobacco Control (Standard) Question Answer Notes Tobacco use: Nonsmoker Problems Problem Type SNOMED Code ICD Code Onset Dates Problem Status W/U Status Risk Notes Problem Bed sore on buttock (L89.309) Active confirmed Encounters Encounter Location Date Provider Diagnosis [address] [address] 04/27/2024 Miguel Ángel Vigil Bed sore on buttock L89.309 Assessments Encounter Date Diagnosis (ICD Code) Assessment Notes Treatment Notes Treatment Clinical Notes Section Notes 04/27/2024 Bed sore on buttock (ICD-10 - L89.309) REPOSITION EVERY TWO HOURS TO KEEP PRESSURE OFF SORE. Plan Of Treatment Medication Medication Name Sig Start Date Stop Date Notes DuoDerm Signal Dressing - apply to linsey cral area Externally every two days for 30 days 04/27/2024 Next Appt Details Follow Up: 2 Months, Reason: monitor status Progress Notes * Karl WHITEHEAD EDOB:[birth year] (88 yo M)Acc No.[id number]:04/27/2024 Patient: Karl PRECIADO Provider: Kendra Vigil :1935 A ge:88 Y S ex:Male Date:04/27/2024 Address:[address] [place], [place] [id number] Subjective: * Chief Complaints: * R /s from 04/22/24 * HPI: D epression Screening: PHQ-9 L ittle interest or pleasure in doing things?Not at all F eeling down, depressed, or hopeless N ot at all T rouble falling or staying asleep, or sleeping too much N ot at all F eeling tired or having little energy N ot at all P oor appetite or overeating N ot at all F eeling bad about yourself or that you are a failure, or have let yourself or your family down N ot at all T rouble concentrating on things, such as reading the newspaper or watching television N ot at all M oving or speaking so slowly that other people could have noticed; or the opposite, being so fidgety or restless that you have been moving around a lot more than usual N ot at all T houghts that you would be better off or of hurting yourself in some way N ot at all T otal Score 0 C SSRS Interpretation and Follow Up Plan: CSSRS Interpretation and Follow Up Plan C SSRS Screen documented using SF Y es R isk Disposition from SF L ow - No Follow Up Plan Required F ollow Up Plan N o Follow Up Plan required at this time. S creening: [place] Suicide Severity Rating Scale (LF) D o you want to initiate with S creener form 1 . Wish to be : Have you wished you were or wished you could go to sleep and not wake up? N o 2 . Suicidal Thoughts: Have you actually had any thoughts of killing yourself? N o 6 . Suicide Behavior Question: Have you ever done anything,started to do anything, or prepared to end your life? N o I nterpretation: L ow Risk I nterim History: TELEHEALTH VISIT. F/U AFTER HOSPITALIZATION FOR UTI. NOW BACK TO BASELINE. URINE INFECTION WAS DUE TO E COLI. HAD FECAL IMPACTION PRIOR TO THAT. HX OBTAINED FROM GRANDDAUGHTER. SPOKE TO MR. WHITEHEAD WELL. HAS REDDDENED AREA OVER COCCYX. USING BANDAID. * ROS: B asic ROS: Admits C onstipation. * Medical History: * Surgical History: D enies Past Surgical History * Hospitalization/Major Diagno stic Procedure: B lood transfusion 06/2022uti 01/2024UTI 04/2024 * Family History: 5 sister(s) - healthy. 3 daughter(s) - healthy. . * Social History: P rimary Social History: L iving Arrangement L iving Arrangement: D ependent Living L iving with: O ther: grandaughter I s this a supportive environment? Y es Alcohol Use A lcohol Use Frequency: N ever Illicit Substance Usage I llicit Substance Usage: N o Employment Status E mployment Status: U nemployed On Social Security T obacco Use: T obacco Control (Standard) T obacco use: N onsmoker * Medications: T akingBisacodyl 5 MG Tablet Delayed Release 1 tablet as needed Orally TWICE DAILY Pen [place] /16 31G X 8 MM Miscellaneous ONE NEEDLE SC DAILY Misc. Devices - Miscellaneous 18 INCHES EXTNSION TUBING FOR CONDOM CATHETER [id number] DAILY Misc. Devices - Miscellaneous LIVE BAG EXTERNALLY DAILY Misc. Devices - Miscellaneous CLEANING WIPES EXTERNALLY DAILY Misc. Devices - Miscellaneous CONDOM CATHETER 36 MM EXTERNALLY DAILY Misc. Devices - Miscellaneous 34 MM CONDOM CATHETER EXTERNALLY DAILY Narcan 4 MG/0.1ML Liquid 4mg as needed for opioid overdose Nasally once Jardiance 10 MG Tablet 1 tablet Orally Once a day Ventolin HFA 108 (90 Base) MCG/ACT Aerosol Solution 2 puffs as needed for shortness of breath Inhalation every 4 hrs Carvedilol 25 MG Tablet 1 tablet with food Orally Twice a day Pravastatin Sodium 40 mg Tablet TAKE 1 TABLET BY MOUTH AT BEDTIME Sodium Bicarbonate 650 mg Tablet TAKE 1 TABLET BY MOUTH TWICE A DAY BEFORE MEALS Methenamine Hippurate 1 GM Tablet TAKE 1 TABLET BY MOUTH DAILY FOR PREVENTION OF URINARY TRACT INFECTION Ondansetron 4 MG Tablet Disintegrating 1 tablet on the tongue and allow to dissolve Orally TWICE A DAY As needed NAUSEAEscitalopram Oxalate 10 MG Tablet 1 tablet Orally at night Pantoprazole Sodium 40 MG Tablet Delayed Release 1 tablet Orally Once a day FeroSul 325 (65 Fe) mg Tablet TAKE 1 TABLET BY MOUTH DAILY Tamsulosin HCl 0.4 MG Capsule 1 capsule Orally twice a day Finasteride 5 mg Tablet TAKE 1 TABLET BY MOUTH DAILY amLODIPine Besylate 5 MG Tablet 1 tablet Orally Once a day Aspirin Adult Low Dose 81 MG Tablet Delayed Release 1 tablet Orally Once a day HYDROcodone-Acetaminophen 5-325 MG Tablet 1 tablet Orally TWICE A DAY As needed SEVERE JOINT PAINTaking Bisacodyl 5 MG Tablet Delayed Release 1 tablet as needed Orally TWICE DAILY Taking Pen [place] 5/16 31G X 8 MM Miscellaneous ONE NEEDLE SC DAILY Taking Misc. Devices - Miscellaneous 18 INCHES EXTNSION TUBING FOR CONDOM CATHETER [id number] DAILY Taking Misc. Devices - Miscellaneous LIVE BAG EXTERNALLY DAILY Taking Misc. Devices - Miscellaneous CLEANING WIPES EXTERNALLY DAILY Taking Misc. Devices - Miscellaneous CONDOM CATHETER 36 MM EXTERNALLY DAILY Taking Misc. Devices - Miscellaneous 34 MM CONDOM CATHETER EXTERNALLY DAILY Taking Narcan 4 MG/0.1ML Liquid 4mg as needed for opioid overdose Nasally once Taking Jardiance 10 MG Tablet 1 tablet Orally Once a day Taking Ventolin HFA 108 (90 Base) MCG/ACT Aerosol Solution 2 puffs as needed for shortness of breath Inhalation every 4 hrs Taking Carvedilol 25 MG Tablet 1 tablet with food Orally Twice a day Taking Pravastatin Sodium 40 mg Tablet TAKE 1 TABLET BY MOUTH AT BEDTIME Taking Sodium Bicarbonate 650 mg Tablet TAKE 1 TABLET BY MOUTH TWICE A DAY BEFORE MEALS Taking Methenamine Hippurate 1 GM Tablet TAKE 1 TABLET BY MOUTH DAILY FOR PREVENTION OF URINARY TRACT INFECTION Taking Ondansetron 4 MG Tablet Disintegrating 1 tablet on the tongue and allow to dissolve Orally TWICE A DAY As needed NAUSEATaking Escitalopram Oxalate 10 MG Tablet 1 tablet Orally at night Taking Pantoprazole Sodium 40 MG Tablet Delayed Release 1 tablet Orally Once a day Taking FeroSul 325 (65 Fe) mg Tablet TAKE 1 TABLET BY MOUTH DAILY Taking Tamsulosin HCl 0.4 MG Capsule 1 capsule Orally twice a day Taking Finasteride 5 mg Tablet TAKE 1 TABLET BY MOUTH DAILY Taking amLODIPine Besylate 5 MG Tablet 1 tablet Orally Once a day Taking Aspirin Adult Low Dose 81 MG Tablet Delayed Release 1 tablet Orally Once a day Taking HYDROcodone-Acetaminophen 5-325 MG Tablet 1 tablet Orally TWICE A DAY As needed SEVERE JOINT PAINNot-TakingKetoconazole 2 % Cream 1 application TO RASH ON FEET AND GROIN UNTIL RESOLVED Externally Once a day Insulin Lispro 200 UNIT/ML Solution Pen-injector 0 UNITS Subcutaneous THREE TIMES A DAY As needed 3 UNITS FOR BLOOD SUGAR OVER 200, 5 UNITS FOR BLOOD SUGAR OVER 300 PRIOR TO MEALSNot-Taking Ketoconazole 2 % Cream 1 application TO RASH ON FEET AND GROIN UNTIL RESOLVED Externally Once a day Not-Taking Insulin Lispro 200 UNIT/ML Solution Pen-injector 0 UNITS Subcutaneous THREE TIMES A DAY As needed 3 UNITS FOR BLOOD SUGAR OVER 200, 5 UNITS FOR BLOOD SUGAR OVER 300 PRIOR TO MEALS * Allergies: N .K.D.A.no[Allergies Verified] Objective: * Vitals: I nitials: dt, Pain scale:5. * Examination: G eneral Examination: GENERAL APPEARANCE: w ell developed, well nourished, in no acute distress. Assessment: * Assessment: 1. B ed sore on buttock - L89.309 (Primary) Plan: * Treatment: * Recommended Wellness and Pre vention Guidelines: * S tatus A lert L ast Done N ext Due A ction Taken N ONCOMPLIANT A lcohol use screening - 0 04/27/2024 - N ONCOMPLIANT B elizabet Mass Index - 0 04/27/2024 - N ONCOMPLIANT I nfluenza vaccine (over 50) - 0 04/27/2024 - N ONCOMPLIANT P neumococcal vaccine - 0 04/27/2024 - * Procedure Codes: G 2024 [facility] EST PATIENT VISIT * Follow Up: 2 Months (Reason: monitor status) * * K LAYER Sign off status: Completed true * Provider: Kendra Vigil Date: 04/27/2024 Generated for Angelique ng/Gonzalo/eTransmitting on: 0 05/01/2024 02:49 PM BLOCK LAYER History and Physical Notes * HPI (History of Present Illness) Category Sub-Category Detail Notes Category Not es Depression Screening PHQ-9 Little inte rest or pleasure in doing things: Not at all Feeling down, depressed, or hopeless: No t at all Trouble falling or staying asleep, or sl eeping too much: Not at all Feeling tired or having little energy: N ot at all Poor appetite or overeating: Not at all Feeling bad about yourself o r that you are a failure, or have let yourself or your family down: Not at all Trouble concentrating on thi ngs, such as reading the newspaper or watching television: Not at all Moving or speaking so slowly that other people could have noticed; or the opposite, being so fidgety or restless that you have been moving around a lot more than usual: Not at all Thoughts that you would be b jonathan off or of hurting yourself in some way: Not at all Total Score: 0 Screening [place] Suicide Sev erity Rating Scale (LF) Do you want to initiate with: Screener form 1. Wish to be : Have you wished you were or wished you could go to sleep and not wake up?: No 2. Suicidal Thoughts: Have you actually had any thoughts of killing yourself?: No 6. Suicide Behavior Question: Have you ever done anything,started to do anything, or prepared to end your life?: No Interpretation:: Low Risk CSSRS Interpretation and Follow Up Plan CSSRS Interpretation and Follow Up Plan CSSRS Screen documented using SF: Yes Risk Disposition from SF: Low - No Follo w Up Plan Required Follow Up Plan: No Follow Up Plan requir ed at this time. Examination Category Sub-Category Detail Notes Category Not es General Examination GENERAL APPEARANCE: well dev eloped, well nourished, in no acute distress
--- OUTSIDE RECORDS SUMMARY | 2024-05-01 14:49 | XMS_ITS ---
Author Organization [facility] Address [address] [place] [address] Care Team Providers Care Marketing Research Coordinator Name Role Phone Miguel Ángel Vigil Primary Care Provider Allergies No Known Allergies REASON FOR VISIT Hospital F/u [phone] Medications Medication SIG (Take, Route, Frequency, Duration) Notes Start Date End Date Status Aspirin Adult Low Dose 81 MG 1 tablet Orally Once a day Active Finasteride 5 mg TAKE 1 TABLET BY NAA TH DAILY for 30 Active amLODIPine Besylate 5 MG 1 tablet Orally Once a day for 90 days Active FeroSul 325 (65 Fe) mg TAKE 1 TABLET BY MOUTH DAILY for 30 Active Tamsulosin HCl 0.4 MG 1 capsule Orally t wice a day for 30 days Active Escitalopram Oxalate 10 MG 1 tablet Orally at night Act adalid Pantoprazole Sodium 40 MG 1 tablet Orally Once a day Active Insulin Lispro 200 UNIT/ML 0 UNITS Subcutaneous THREE TIMES A DAY As needed 3 UNITS FOR BLOOD SUGAR OVER 200, 5 UNITS FOR BLOOD SUGAR OVER 300 PRIOR TO MEALS 06/13/2023 Not-Taki ng Ondansetron 4 MG 1 tablet on the tongue and allow to dissolve Orally TWICE A DAY As needed NAUSEA Active Ketoconazole 2 % 1 application TO MARCELO H ON FEET AND GROIN UNTIL RESOLVED Externally Once a day Not-Taking Sodium Bicarbonate 650 mg TAKE 1 TABLET BY MOUTH TWICE A DAY BEFORE MEALS for 30 Active Methenamine Hippurate 1 GM TAKE 1 TABLET BY MOUTH DAILY FOR PREVENTION OF URINARY TRACT INFECTION for 30 Active Carvedilol 25 MG 1 tablet with food Orally Twice a day for 90 days Active Pravastatin Sodium 40 mg TAKE 1 TABLET B Y MOUTH AT BEDTIME for 30 Active Ventolin HFA 108 (90 Base) MCG/ACT 2 puffs as needed for shortness of breath Inhalation every 4 hrs 05/07/2023 Active Misc. Devices - 34 MM CONDOM CATHETE R EXTERNALLY DAILY 12/20/2022 Active Narcan 4 MG/0.1ML 4mg as needed for op ioid overdose Nasally once 05/07/2023 Active Misc. Devices - CLEANING WIPES EXTERNALLY DAILY Active Misc. Devices - CONDOM CATHETER 36 M M EXTERNALLY DAILY Active Jardiance 10 MG 1 tablet Orally Once a day for 30 days Active Misc. Devices - 18 INCHES EXTNSION TUBING FOR CONDOM CATHETER [id number] DAILY Active Misc. Devices - LIVE BAG EXTERNALLY DAILY Active Bisacodyl 5 MG 1 tablet as needed Orally TWICE DAILY Active Pen [place] 5/16 31G X 8 MM ONE NEEDLE SC DAILY 07/26/2022 Active HYDROcodone-Acetaminophe n 5-325 MG 1 tablet Orally TWICE A DAY As needed SEVERE JOINT PAIN 04/16/2024 Active Social History Sex Assigned At : Social History Observation Description Sex Assigned At Male Encounters Encounter Location Date Provider Diagnosis [address] [place] [address] 04/22/2024 Miguel Ángel Vigil Plan Of Treatment No Information Progress Notes * Karl WHITEHEAD EDOB:[birth year] (88 yo M)Acc No.[id number]:04/22/2024 UNLOCKED PROGRESS NOTE Patient: Karl PRECIADO Provider: Kendra Vigil :1935 A ge:88 Y S ex:Male Date:04/22/2024 Address:[address] [place], [place] [id number] Subjective: * Chief Complaints: * 1 . Hospital F/u [phone]. * Medical History: * Surgical History: D enies Past Surgical History. * Hospitalization/Major Diagno stic Procedure: B lood transfusion 06/2022, uti 01/2024. * Family History: 5 sister(s) - healthy. 3 daughter(s) - healthy. . * Social History: P rimary Social History: L iving Arrangement L iving Arrangement: D ependent Living L iving with: O ther: kalpesh I s this a supportive environment? Y es Alcohol Use A lcohol Use Frequency: N ever Illicit Substance Usage I llicit Substance Usage: N o Employment Status E mployment Status: U nemployed On Social Security * Medications: T aking Bisacodyl 5 MG Tablet Delayed Release 1 tablet as needed Orally TWICE DAILY , Taking Pen [place] 5/16 31G X 8 MM Miscellaneous ONE NEEDLE SC DAILY , Taking Misc. Devices - Miscellaneous 18 INCHES EXTNSION TUBING FOR CONDOM CATHETER [id number] DAILY , Taking Misc. Devices - Miscellaneous LIVE BAG EXTERNALLY DAILY , Taking Misc. Devices - Miscellaneous CLEANING WIPES EXTERNALLY DAILY , Taking Misc. Devices - Miscellaneous CONDOM CATHETER 36 MM EXTERNALLY DAILY , Taking Misc. Devices - Miscellaneous 34 MM CONDOM CATHETER EXTERNALLY DAILY , Taking Narcan 4 MG/0.1ML Liquid 4mg as needed for opioid overdose Nasally once , Taking Jardiance 10 MG Tablet 1 tablet Orally Once a day , Taking Ventolin HFA 108 (90 Base) MCG/ACT Aerosol Solution 2 puffs as needed for shortness of breath Inhalation every 4 hrs , Taking Carvedilol 25 MG Tablet 1 tablet with food Orally Twice a day , Taking Pravastatin Sodium 40 mg Tablet TAKE 1 TABLET BY MOUTH AT BEDTIME , Taking Sodium Bicarbonate 650 mg Tablet TAKE 1 TABLET BY MOUTH TWICE A DAY BEFORE MEALS , Taking Methenamine Hippurate 1 GM Tablet TAKE 1 TABLET BY MOUTH DAILY FOR PREVENTION OF URINARY TRACT INFECTION , Taking Ondansetron 4 MG Tablet Disintegrating 1 tablet on the tongue and allow to dissolve Orally TWICE A DAY As needed NAUSEA, Taking Escitalopram Oxalate 10 MG Tablet 1 tablet Orally at night , Taking Pantoprazole Sodium 40 MG Tablet Delayed Release 1 tablet Orally Once a day , Taking FeroSul 325 (65 Fe) mg Tablet TAKE 1 TABLET BY MOUTH DAILY , Taking Tamsulosin HCl 0.4 MG Capsule 1 capsule Orally twice a day , Taking Finasteride 5 mg Tablet TAKE 1 TABLET BY MOUTH DAILY , Taking amLODIPine Besylate 5 MG Tablet 1 tablet Orally Once a day , Taking Aspirin Adult Low Dose 81 MG Tablet Delayed Release 1 tablet Orally Once a day , Taking HYDROcodone- Acetaminophen 5-325 MG Tablet 1 tablet Orally TWICE A DAY As needed SEVERE JOINT PAIN, Not- Taking Ketoconazole 2 % Cream 1 application TO RASH ON FEET AND GROIN UNTIL RESOLVED Externally Once a day , Not-Taking Insulin Lispro 200 UNIT/ML Solution Pen- injector 0 UNITS Subcutaneous THREE TIMES A DAY As needed 3 UNITS FOR BLOOD SUGAR OVER 200, 5 UNITS FOR BLOOD SUGAR OVER 300 PRIOR TO MEALS * Allergies: N .K.D.A. Objective: * Vitals: Assessment: Plan: * Treatment: * Recommended Wellness and Pre vention Guidelines: * S tatus A lert L ast Done N ext Due A ction Taken N ONCOMPLIANT A lcohol use screening - 0 04/22/2024 - N ONCOMPLIANT B elizabet Mass Index - 0 04/22/2024 - N ONCOMPLIANT I nfluenza vaccine (over 50) - 0 04/22/2024 - N ONCOMPLIANT P neumococcal vaccine - 0 04/22/2024 - * * Electronic signature of Amandeep Vigil , [id number] on 05/01/2024 at 02:48 PM ALBERENE STONE SETTER Sign off status: Pending * Provider: Kendra Vigil Date: 0 04/22/2024 Generated for Angelique adames/Gonzalo/Jesusitting on: 0 05/01/2024 02:48 PM ALBERENE STONE SETTER
--- NOTE | 2024-05-01 15:11 | ECG_ITS ---
Test Date: 2024-05-01 17:32:51 Measurements Intervals [place] Rate: 67 P: -32 NE: 141 QRS: -8 QRSD: 155 T: -25 QT: 436 QTc: 463 Interpretive Statements SINUS RHYTHM RIGHT BUNDLE BRANCH BLOCK CONSIDER INFERIOR INFARCT, AGE INDETERMINATE BASELINE ARTIFACT- V1, V3-V4 ABNORMAL ECG No previous ECG available for comparison Electronically Signed On 05-01-2024 19:12:44 PACKING INSPECTOR by David Elizalde D.O.
[2024-05-01 17:32] LABS: Basophils Percent Auto 0.9 % (0.2-1.2); Eosinophils Absolute Auto 0.2 K/mm3 (0-0.3); Eosinophils Percent Auto 3.4 % (0-4.4); Hematocrit 28.5 % (42.0-52.0); Hemoglobin 9.3 g/dL (14.0-18.0); Immature Granulocyte Absolute 0.03 K/mm3 (0.00-0.031); Immature Granulocyte Percent A 0.7 % (0-0.5); Lymphocytes Absolute Auto 0.76 K/mm3 (0.9-3.2); Mean Corpuscular HGB Conc 32.6 g/dl (32-36); Mean Corpuscular Hemoglobin 32.1 pg (26-34); Mean Corpuscular Volume 98.3 fl (80-100); Mean Platelet Volume 10.6 fl (7.4-10.4); Monocytes Absolute Auto 0.5 K/mm3 (0.1-0.6); Monocytes Percent Auto 10.3 % (2.6-8.5); Neutrophils Percent Auto 67.7 % (45.5-73.1); Platelet Count Result 102 k/mm3 (150-375); Red Cell Distribution Width 13.2 % (11.5-14.5); White Blood Count 4.5 K/mm3 (4.5-10.0)
[2024-05-01 17:42] LABS: Prothrombin Time 13.6 Seconds (11.1-14.7)
[2024-05-01 17:43] LABS: Partial Thromboplastin Time 29.2 Seconds (22.3-36.8)
[2024-05-01 17:46] LABS: Acetaminophen < 10 ug/mL (10-30); Ethanol < 10 mg/dL (<10); Salicylate < 1.0 mg/dL (2-20)
[2024-05-01 17:47] LABS: Alveolar/Arterial O2 Gradient 15.1 mmHg; Base Excess ABG -3.2 mEq/l (+/-2.0); Fractional Inspired Oxygen 21 %; HCO3 ABG 20.9 mEq/l (22.0-26.0); Oxygen Content ABG 13.3 %vol (16.0-22.0); Oxygen Saturation ABG 97.3 % (95.0-100.0); Oxyhemoglobin 96.5 % THb (90.0-100.0); PCO2 ABG 33.8 mmHg (35.0-45.0); PO2 ABG 94.2 mmHg (80.0-100.0); PO2 FiO2 Ratio Arterial Blood 4.49 %; Total Hemoglobin 9.7 g/dL (12.0-18.0); pH ABG 7.409 (7.350-7.450)
[2024-05-01 17:47] LABS: Lactic Acid Reflex 0.7 mmol/L (0.7-2.0)
[2024-05-01 17:48] LABS: Alanine Aminotransferase 9 U/L (6-50); Albumin Level 3.3 g/dL (3.5-5.1); Alkaline Phosphatase 75 U/L (38-126); Anion Gap 8 mmol/L (4-12); Aspartate Amino Transferase 17 U/L (17-59); Bilirubin,Total 0.7 mg/dL (0.2-1.3); Blood Urea Nitrogen 29 mg/dL (9-20); Calcium 9.8 mg/dL (8.4-10.2); Carbon Dioxide 24 mmol/L (22-30); Chloride 105 mmol/L (98-107); Creatine Kinase 34 U/L (55-170); Estimated Glomerular Filt Rate 30; Glucose 93 mg/dL (65-110); Lipase 36 U/L (23-300); Magnesium 1.8 mg/dL (1.6-2.3); Phosphorus 3.1 mg/dL (2.5-4.5); Potassium 3.8 mmol/L (3.4-5.0); Sodium 137 mmol/L (137-145)
[2024-05-01 17:49] LABS: Device ROOM AIR; Modified Allen's Test Pass; Site Drawn RIGHT RADIAL
[2024-05-01 18:08] LABS: Influenza A QL RT-PCR Negative (Negative); Influenza B QL RT-PCR Negative (Negative); RSV RNA, RT-PCR Negative (Negative); SARS-CoV-2 RNA PCR Negative (Negative)
[2024-05-01 18:19] LABS: NT Pro B Type Natriuretic Pept 15600 pg/mL (19.9-100)
[2024-05-01 19:16] LABS: Add Urine Microscopic? YES; Appearance Urine Turbid (Clear); Bacteria Urine 4+ /hpf; Bilirubin Urine Negative (Negative); Blood Urine 2+ (Negative); Color Urine Yellow (Yellow); Glucose Urine UA Negative (Negative); Ketones Urine Trace mg/dL (Negative); Leukocyte Esterase Ur 3+ LEU/UL (Negative); Need Manual Microscopic Reviewed; Nitrate Urine Negative (Negative); Protein Urine 2+ mg/dL (Negative); Specific Grav Ur 1.015 (1.001-1.035); Squamous Epithelial Cell Urine Occasional /hpf (Few); WBC Urine >100 /hpf (0-3)
--- NOTE | 2024-05-01 19:26 | ED_ITS ---
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 He started becoming more confused yesterday. Granddaughter thought that he had cold symptoms any worse voice. The patient states he felt that he ate is staple. the patient is very confused and cannot provide any meaningful history. He is asking me repeatedly for 3 blankets.? <Rufino Weldon MD - Last Filed: 05/01/24 21:46> Related Data Home medications: Home Medications ?Medication ?Instructions ?Recorded ?Confirmed ?Last Taken ?Type empagliflozin 10 mg tablet 10 mg PO DAILY 08/08/22 11/23/22 11/20/22 21:00 History (Jardiance) escitalopram oxalate 10 mg tablet 10 mg PO HS 08/08/22 11/23/22 11/20/22 21:00 History ferrous sulfate 325 mg (65 mg 325 mg PO DAILY 08/08/22 11/23/22 11/20/22 21:00 History iron) tablet methenamine hippurate 1 gram tablet 1 g PO DAILY 08/08/22 11/23/22 11/21/22 08:00 History metoprolol tartrate 25 mg tablet 25 mg PO HS 08/08/22 11/23/22 11/20/22 21:00 History pravastatin 40 mg tablet 40 mg PO HS 08/08/22 11/23/22 11/20/22 21:00 History sodium bicarbonate 650 mg tablet 650 mg PO BID 08/08/22 11/23/22 11/21/22 08:00 History tamsulosin 0.4 mg capsule 0.4 mg PO 08/08/22 11/23/22 11/20/22 21:00 History <Rufino Weldon MD - Last Filed: 05/01/24 21:46> Allergies/adverse reactions: Allergies Allergy/AdvReac Type Severity Reaction Status Date / Time No Known Allergies Allergy Verified 11/26/22 12:25 <Rufino Weldon MD - Last Filed: 05/01/24 21:46> [facility] Past Medical History Medical History: Medical History (Updated 05/02/24 @ 02:07 by Eddie Dubois MD) Acute on chronic anemia 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 Congestive heart failure Acute kidney injury superimposed on CKD Delirium due to general medical condition Altered mental status Acute UTI Dementia <Rufino Weldon MD - Last Filed: 05/01/24 21:46> Family History Family History: Family History Other Unknown family medical history <Rufino Weldon MD - Last Filed: 05/01/24 21:46> Social History Social History: Social History Smoking status: Never smoker Alcohol intake: unknown Substance use: unknown Substance use type: unknown Lack of Transportation: No Lack of Food: Never True Current Housing: I Have Housing Concerned About Future Housing: No Difficulty Paying Gas/Electric Bills: No Difficulty Paying for Meds: No Currently Unemployed: No Education: Grade School Difficulty w/ Childcare or Family Care: No Spiritual care concerns: No <Rufino Weldon MD - Last Filed: 05/01/24 21:46> Exam 2 Narrative: APPEARANCE: No apparent distress. A&O times 1-2, Head: atraumatic. EYES: EOMI, NOSE: Atraumatic NECK: Trachea midline RESPIRATORY: No increased rate of breathing CTAB CARDIOVASCULAR: RRR, no peripheral edema ABDOMINAL: Non-distended soft nontender MUSCULOSKELETAl: No obvious deformities NEURO: Alert. Moving 4/4 extremities SKIN:: Warm, dry. Normal color PSYCHIATRIC: Normal affect <Rufino Weldon MD - Last Filed: 05/01/24 21:46> Course Course Emergency Course: Patient care signed out to me by previous provider at 7:[address] scan results admission to the hospital for complicated urinary tract infection. Patient has a history of advanced dementia, currently alert oriented times 0. His chest x-ray has some concerning findings for potential pneumonia source CT scan of the chest abdomen pelvis was pending. He was already started on meropenem for multidrug resistant Klebsiella on urinalysis from previous culture results. CT findings resulted with bilateral pleural effusions, minimal pericardial effusion, abdominal aortic aneurysm, fecal impaction with constipation, left lower ureteric stone measuring 6 mm but no associated hydro. Possible gallbladder stones also seen. I consulted Urology and spoke to Dr. Don regarding his complicated urinary tract infection and large stone in the left ureteric system. Recommendations to make the patient and p.o. and he will evaluate the patient in the morning given that he is currently not septic and not needing emergent stent placement. Patient was covered with meropenem and given Lasix for his pleural effusions and elevated BNP although he clinically appears euvolemic. Called and spoke to the hospitalist who accepted the patient to the IMU at this time. Admit orders placed. Patient boarded until bed available. <Eddie Dubois MD - Last Filed: 05/02/24 02:07> Vital Signs Vital signs: Vital Signs Temperature 36.1 C L 05/01/24 13:45 Pulse Rate 80 05/01/24 13:45 Respiratory Rate 16 05/01/24 13:45 Blood Pressure 145/96 H 05/01/24 13:45 Pulse Oximetry 99 05/01/24 13:45 Oxygen Delivery Room Air 05/01/24 13:45 Temperature 36.1 C L 05/01/24 14:04 Pulse Rate 81 05/01/24 23:45 Respiratory Rate 12 05/01/24 23:45 Blood Pressure 144/93 H 05/01/24 20:22 Pulse Oximetry 100 05/01/24 23:45 Oxygen Delivery Room Air 05/01/24 13:54 <Rufino Weldon MD - Last Filed: 05/01/24 21:46> Vital Signs Temperature 36.1 C L 05/01/24 13:45 Pulse Rate 80 05/01/24 13:45 Respiratory Rate 16 05/01/24 13:45 Blood Pressure 145/96 H 05/01/24 13:45 Pulse Oximetry 99 05/01/24 13:45 Oxygen Delivery Room Air 05/01/24 13:45 Temperature 36.1 C L 05/01/24 14:04 Pulse Rate 81 05/01/24 23:45 Respiratory Rate 12 05/01/24 23:45 Blood Pressure 144/93 H 05/01/24 20:22 Pulse Oximetry 100 05/01/24 23:45 Oxygen Delivery Room Air 05/01/24 13:54 <Eddie Dubois MD - Last Filed: 05/02/24 02:07> Medical Decision Making MDM Narrative Medical decision making narrative: -Course: 88-year-old male presenting for altered mental status. Broad workup obtained. -DDX includes but is not limited to: -Co-morbidities complicating care: -Social determinants of health: -External Chart Review: -Hx from independent Sources: -Independent interpretation of studies: -Discussion of Management/Consultants: -Dx tests considered but not ordered: -Procedures: -Interventions: -Shared decision making / Disposition: -RX <Rufino Weldon MD - Last Filed: 05/01/24 21:46> Vital Signs Vital Signs: Vital Signs Temperature 36.1 C L 05/01/24 13:45 Pulse Rate 80 05/01/24 13:45 Respiratory Rate 16 05/01/24 13:45 Blood Pressure 145/96 H 05/01/24 13:45 Pulse Oximetry 99 05/01/24 13:45 Oxygen Delivery Room Air 05/01/24 13:45 Temperature 36.1 C L 05/01/24 14:04 Pulse Rate 81 05/01/24 23:45 Respiratory Rate 12 05/01/24 23:45 Blood Pressure 144/93 H 05/01/24 20:22 Pulse Oximetry 100 05/01/24 23:45 Oxygen Delivery Room Air 05/01/24 13:54 <Rufino Weldon MD - Last Filed: 05/01/24 21:46> Vital Signs Temperature 36.1 C L 05/01/24 13:45 Pulse Rate 80 05/01/24 13:45 Respiratory Rate 16 05/01/24 13:45 Blood Pressure 145/96 H 05/01/24 13:45 Pulse Oximetry 99 05/01/24 13:45 Oxygen Delivery Room Air 05/01/24 13:45 Temperature 36.1 C L 05/01/24 14:04 Pulse Rate 81 05/01/24 23:45 Respiratory Rate 12 05/01/24 23:45 Blood Pressure 144/93 H 05/01/24 20:22 Pulse Oximetry 100 05/01/24 23:45 Oxygen Delivery Room Air 05/01/24 13:54 <Eddie Dubois MD - Last Filed: 05/02/24 02:07> Lab Data Result diagrams: 05/01/24 17:22 05/01/24 17:22 <Rufino Weldon MD - Last Filed: 05/01/24 21:46> Labs: Lab Results 05/01/24 05/01/24 05/01/24 Range/Units 13:56 17:22 18:35 WBC 4.5 (4.5-10.0) K/mm3 RBC 2.90 L (4.6-6.20) M/mm3 Hgb 9.3 L (14.0-18.0) g/dL Hct 28.5 L (42.0-52.0) % MCV 98.3 (80-100) fl MCH 32.1 (26-34) pg MCHC 32.6 (32-36) g/dl RDW 13.2 (11.5-14.5) % Plt Count 102 L (150-375) k/mm3 MPV 10.6 H (7.4-10.4) fl Immature Gran % (Auto) 0.7 H (0-0.5) % Neut % (Auto) 67.7 (45.5-73.1) % Lymph % (Auto) 17.0 L (18.3-44.2) % [place] % (Auto) 10.3 H (2.6-8.5) % Eos % (Auto) 3.4 (0-4.4) % Baso % (Auto) 0.9 (0.2-1.2) % Lymph # (Auto) 0.76 L (0.9-3.2) K/mm3 [place] # (Auto) 0.5 (0.1-0.6) K/mm3 Eos # (Auto) 0.2 (0-0.3) K/mm3 Baso # (Auto) 0.0 (0.0-0.1) K/mm3 Abs Immat Gran (auto) 0.03 (0.00-0.031) K/mm3 Absolute Neuts (auto) 3.0 (1.3-6.7) K/mm3 Absolute Nucleated RBC 0.000 (0.0-0.012) K/mm3 Nucleated RBC % 0.0 (0.0-0.2) % PT 13.6 (11.1-14.7) Seconds INR 1.0 APTT 29.2 (22.3-36.8) Seconds Sodium 137 (137-145) mmol/L Potassium 3.8 (3.4-5.0) mmol/L Chloride 105 (98-107) mmol/L Carbon Dioxide 24 (22-30) mmol/L Anion Gap 8 (4-12) mmol/L BUN 29 H D (9-20) mg/dL Creatinine 2.13 H (0.7-1.3) mg/dL Estim Creat Clear Calc Not Reportable Estimated GFR 30 L (59 - ) Glucose 93 (65-110) mg/dL POC Capillary Glucose 95 (65-105) mg/dl Lactic Acid 0.7 (0.7-2.0) mmol/L Calcium 9.8 (8.4-10.2) mg/dL Phosphorus 3.1 (2.5-4.5) mg/dL Magnesium 1.8 (1.6-2.3) mg/dL Total Bilirubin 0.7 (0.2-1.3) mg/dL AST 17 (17-59) U/L ALT 9 (6-50) U/L Alkaline Phosphatase 75 (38-126) U/L Total Creatine Kinase 34 L (55-170) U/L Troponin I 0.061 H* (0.000-0.034) ng/mL NT-Pro-B Natriuret Pep 75614 H (19.9-100) pg/mL Total Protein 7.0 (6.3-8.2) g/dL Albumin 3.3 L (3.5-5.1) g/dL Lipase 36 (23-300) U/L TSH (Reflex) 6.640 H (0.465-4.68) uIU/mL Free T4 1.28 (0.78-2.19) ng/dL Total T3 0.82 L (0.97-1.69) NG/ML Urine Color Yellow (Yellow) Urine Appearance Turbid H (Clear) Urine pH 6.0 (5.0-9.0) Ur Specific [place] 1.015 (1.001-1.035) Urine Protein 2+ H (Negative) mg/dL Urine Glucose (UA) Negative (Negative) mg/dL Urine Ketones Trace H (Negative) mg/dL Ur Blood (Man) 2+ H (Negative) Urine Nitrate Negative (Negative) Urine Bilirubin Negative (Negative) Urine Urobilinogen 1.0 (<2.0) mg/dL Add Ur Microanalysis Reviewed Leukocyte Esterase Rfl 3+ H (Negative) ANH/UL Urine RBC 3-5 H (0-2) /hpf Urine WBC >100 H (0-3) /hpf Ur Squamous Epith Cells Occasional (Few) /hpf Urine Bacteria 4+ H /hpf Urine Casts 6-10 Salicylates < 1.0 L (2-20) mg/dL Urine Opiates Screen Positive A (Negative) Urine Methadone Screen Negative (Negative) Acetaminophen < 10 L (10-30) ug/mL Ur Barbiturates Screen Negative (Negative) Ur Phencyclidine Scrn Negative (Negative) Ur Amphetamine Screen Negative (Negative) U Benzodiazepines Scrn Negative (Negative) Urine Cocaine Screen Negative (Negative) U Cannabinoids Screen Negative (Negative) Ethyl Alcohol < 10 (<10) mg/dL Influenza A (RT-PCR) Negative (Negative) Influenza B (RT-PCR) Negative (Negative) RSV (RT-PCR) Negative (Negative) SARS-CoV-2 RNA (RT-PCR) Negative (Negative) 05/01/24 05/01/24 Range/Units 20:21 21:52 WBC (4.5-10.0) K/mm3 RBC (4.6-6.20) M/mm3 Hgb (14.0-18.0) g/dL Hct (42.0-52.0) % MCV (80-100) fl MCH (26-34) pg MCHC (32-36) g/dl RDW (11.5-14.5) % Plt Count (150-375) k/mm3 MPV (7.4-10.4) fl Immature Gran % (Auto) (0-0.5) % Neut % (Auto) (45.5-73.1) % Lymph % (Auto) (18.3-44.2) % [place] % (Auto) (2.6-8.5) % Eos % (Auto) (0-4.4) % Baso % (Auto) (0.2-1.2) % Lymph # (Auto) (0.9-3.2) K/mm3 [place] # (Auto) (0.1-0.6) K/mm3 Eos # (Auto) (0-0.3) K/mm3 Baso # (Auto) (0.0-0.1) K/mm3 Abs Immat Gran (auto) (0.00-0.031) K/mm3 Absolute Neuts (auto) (1.3-6.7) K/mm3 Absolute Nucleated RBC (0.0-0.012) K/mm3 Nucleated RBC % (0.0-0.2) % PT (11.1-14.7) Seconds INR APTT (22.3-36.8) Seconds Sodium (137-145) mmol/L Potassium (3.4-5.0) mmol/L Chloride (98-107) mmol/L Carbon Dioxide (22-30) mmol/L Anion Gap (4-12) mmol/L BUN (9-20) mg/dL Creatinine (0.7-1.3) mg/dL Estim Creat Clear Calc Estimated GFR (59 - ) Glucose (65-110) mg/dL POC Capillary Glucose 96 (65-105) mg/dl Lactic Acid (0.7-2.0) mmol/L Calcium (8.4-10.2) mg/dL Phosphorus (2.5-4.5) mg/dL Magnesium (1.6-2.3) mg/dL Total Bilirubin (0.2-1.3) mg/dL AST (17-59) U/L ALT (6-50) U/L Alkaline Phosphatase (38-126) U/L Total Creatine Kinase (55-170) U/L Troponin I 0.061 H* (0.000-0.034) ng/mL NT-Pro-B Natriuret Pep (19.9-100) pg/mL Total Protein (6.3-8.2) g/dL Albumin (3.5-5.1) g/dL Lipase (23-300) U/L TSH (Reflex) (0.465-4.68) uIU/mL Free T4 (0.78-2.19) ng/dL Total T3 (0.97-1.69) NG/ML Urine Color (Yellow) Urine Appearance (Clear) Urine pH (5.0-9.0) Ur Specific [place] (1.001-1.035) Urine Protein (Negative) mg/dL Urine Glucose (UA) (Negative) mg/dL Urine Ketones (Negative) mg/dL Ur Blood (Man) (Negative) Urine Nitrate (Negative) Urine Bilirubin (Negative) Urine Urobilinogen (<2.0) mg/dL Add Ur Microanalysis Leukocyte Esterase Rfl (Negative) ANH/UL Urine RBC (0-2) /hpf Urine WBC (0-3) /hpf Ur Squamous Epith Cells (Few) /hpf Urine Bacteria /hpf Urine Casts Salicylates (2-20) mg/dL Urine Opiates Screen (Negative) Urine Methadone Screen (Negative) Acetaminophen (10-30) ug/mL Ur Barbiturates Screen (Negative) Ur Phencyclidine Scrn (Negative) Ur Amphetamine Screen (Negative) U Benzodiazepines Scrn (Negative) Urine Cocaine Screen (Negative) U Cannabinoids Screen (Negative) Ethyl Alcohol (<10) mg/dL Influenza A (RT-PCR) (Negative) Influenza B (RT-PCR) (Negative) RSV (RT-PCR) (Negative) SARS-CoV-2 RNA (RT-PCR) (Negative) <Rufino Weldon MD - Last Filed: 05/01/24 21:46> Lab Results 05/01/24 05/01/24 05/01/24 Range/Units 13:56 17:22 18:35 WBC 4.5 (4.5-10.0) K/mm3 RBC 2.90 L (4.6-6.20) M/mm3 Hgb 9.3 L (14.0-18.0) g/dL Hct 28.5 L (42.0-52.0) % MCV 98.3 (80-100) fl MCH 32.1 (26-34) pg MCHC 32.6 (32-36) g/dl RDW 13.2 (11.5-14.5) % Plt Count 102 L (150-375) k/mm3 MPV 10.6 H (7.4-10.4) fl Immature Gran % (Auto) 0.7 H (0-0.5) % Neut % (Auto) 67.7 (45.5-73.1) % Lymph % (Auto) 17.0 L (18.3-44.2) % [place] % (Auto) 10.3 H (2.6-8.5) % Eos % (Auto) 3.4 (0-4.4) % Baso % (Auto) 0.9 (0.2-1.2) % Lymph # (Auto) 0.76 L (0.9-3.2) K/mm3 [place] # (Auto) 0.5 (0.1-0.6) K/mm3 Eos # (Auto) 0.2 (0-0.3) K/mm3 Baso # (Auto) 0.0 (0.0-0.1) K/mm3 Abs Immat Gran (auto) 0.03 (0.00-0.031) K/mm3 Absolute Neuts (auto) 3.0 (1.3-6.7) K/mm3 Absolute Nucleated RBC 0.000 (0.0-0.012) K/mm3 Nucleated RBC % 0.0 (0.0-0.2) % PT 13.6 (11.1-14.7) Seconds INR 1.0 APTT 29.2 (22.3-36.8) Seconds Sodium 137 (137-145) mmol/L Potassium 3.8 (3.4-5.0) mmol/L Chloride 105 (98-107) mmol/L Carbon Dioxide 24 (22-30) mmol/L Anion Gap 8 (4-12) mmol/L BUN 29 H D (9-20) mg/dL Creatinine 2.13 H (0.7-1.3) mg/dL Estim Creat Clear Calc Not Reportable Estimated GFR 30 L (59 - ) Glucose 93 (65-110) mg/dL POC Capillary Glucose 95 (65-105) mg/dl Lactic Acid 0.7 (0.7-2.0) mmol/L Calcium 9.8 (8.4-10.2) mg/dL Phosphorus 3.1 (2.5-4.5) mg/dL Magnesium 1.8 (1.6-2.3) mg/dL Total Bilirubin 0.7 (0.2-1.3) mg/dL AST 17 (17-59) U/L ALT 9 (6-50) U/L Alkaline Phosphatase 75 (38-126) U/L Total Creatine Kinase 34 L (55-170) U/L Troponin I 0.061 H* (0.000-0.034) ng/mL NT-Pro-B Natriuret Pep 68915 H (19.9-100) pg/mL Total Protein 7.0 (6.3-8.2) g/dL Albumin 3.3 L (3.5-5.1) g/dL Lipase 36 (23-300) U/L TSH (Reflex) 6.640 H (0.465-4.68) uIU/mL Free T4 1.28 (0.78-2.19) ng/dL Total T3 0.82 L (0.97-1.69) NG/ML Urine Color Yellow (Yellow) Urine Appearance Turbid H (Clear) Urine pH 6.0 (5.0-9.0) Ur Specific [place] 1.015 (1.001-1.035) Urine Protein 2+ H (Negative) mg/dL Urine Glucose (UA) Negative (Negative) mg/dL Urine Ketones Trace H (Negative) mg/dL Ur Blood (Man) 2+ H (Negative) Urine Nitrate Negative (Negative) Urine Bilirubin Negative (Negative) Urine Urobilinogen 1.0 (<2.0) mg/dL Add Ur Microanalysis Reviewed Leukocyte Esterase Rfl 3+ H (Negative) ANH/UL Urine RBC 3-5 H (0-2) /hpf Urine WBC >100 H (0-3) /hpf Ur Squamous Epith Cells Occasional (Few) /hpf Urine Bacteria 4+ H /hpf Urine Casts 6-10 Salicylates < 1.0 L (2-20) mg/dL Urine Opiates Screen Positive A (Negative) Urine Methadone Screen Negative (Negative) Acetaminophen < 10 L (10-30) ug/mL Ur Barbiturates Screen Negative (Negative) Ur Phencyclidine Scrn Negative (Negative) Ur Amphetamine Screen Negative (Negative) U Benzodiazepines Scrn Negative (Negative) Urine Cocaine Screen Negative (Negative) U Cannabinoids Screen Negative (Negative) Ethyl Alcohol < 10 (<10) mg/dL Influenza A (RT-PCR) Negative (Negative) Influenza B (RT-PCR) Negative (Negative) RSV (RT-PCR) Negative (Negative) SARS-CoV-2 RNA (RT-PCR) Negative (Negative) 05/01/24 05/01/24 Range/Units 20:21 21:52 WBC (4.5-10.0) K/mm3 RBC (4.6-6.20) M/mm3 Hgb (14.0-18.0) g/dL Hct (42.0-52.0) % MCV (80-100) fl MCH (26-34) pg MCHC (32-36) g/dl RDW (11.5-14.5) % Plt Count (150-375) k/mm3 MPV (7.4-10.4) fl Immature Gran % (Auto) (0-0.5) % Neut % (Auto) (45.5-73.1) % Lymph % (Auto) (18.3-44.2) % [place] % (Auto) (2.6-8.5) % Eos % (Auto) (0-4.4) % Baso % (Auto) (0.2-1.2) % Lymph # (Auto) (0.9-3.2) K/mm3 [place] # (Auto) (0.1-0.6) K/mm3 Eos # (Auto) (0-0.3) K/mm3 Baso # (Auto) (0.0-0.1) K/mm3 Abs Immat Gran (auto) (0.00-0.031) K/mm3 Absolute Neuts (auto) (1.3-6.7) K/mm3 Absolute Nucleated RBC (0.0-0.012) K/mm3 Nucleated RBC % (0.0-0.2) % PT (11.1-14.7) Seconds INR APTT (22.3-36.8) Seconds Sodium (137-145) mmol/L Potassium (3.4-5.0) mmol/L Chloride (98-107) mmol/L Carbon Dioxide (22-30) mmol/L Anion Gap (4-12) mmol/L BUN (9-20) mg/dL Creatinine (0.7-1.3) mg/dL Estim Creat Clear Calc Estimated GFR (59 - ) Glucose (65-110) mg/dL POC Capillary Glucose 96 (65-105) mg/dl Lactic Acid (0.7-2.0) mmol/L Calcium (8.4-10.2) mg/dL Phosphorus (2.5-4.5) mg/dL Magnesium (1.6-2.3) mg/dL Total Bilirubin (0.2-1.3) mg/dL AST (17-59) U/L ALT (6-50) U/L Alkaline Phosphatase (38-126) U/L Total Creatine Kinase (55-170) U/L Troponin I 0.061 H* (0.000-0.034) ng/mL NT-Pro-B Natriuret Pep (19.9-100) pg/mL Total Protein (6.3-8.2) g/dL Albumin (3.5-5.1) g/dL Lipase (23-300) U/L TSH (Reflex) (0.465-4.68) uIU/mL Free T4 (0.78-2.19) ng/dL Total T3 (0.97-1.69) NG/ML Urine Color (Yellow) Urine Appearance (Clear) Urine pH (5.0-9.0) Ur Specific [place] (1.001-1.035) Urine Protein (Negative) mg/dL Urine Glucose (UA) (Negative) mg/dL Urine Ketones (Negative) mg/dL Ur Blood (Man) (Negative) Urine Nitrate (Negative) Urine Bilirubin (Negative) Urine Urobilinogen (<2.0) mg/dL Add Ur Microanalysis Leukocyte Esterase Rfl (Negative) ANH/UL Urine RBC (0-2) /hpf Urine WBC (0-3) /hpf Ur Squamous Epith Cells (Few) /hpf Urine Bacteria /hpf Urine Casts Salicylates (2-20) mg/dL Urine Opiates Screen (Negative) Urine Methadone Screen (Negative) Acetaminophen (10-30) ug/mL Ur Barbiturates Screen (Negative) Ur Phencyclidine Scrn (Negative) Ur Amphetamine Screen (Negative) U Benzodiazepines Scrn (Negative) Urine Cocaine Screen (Negative) U Cannabinoids Screen (Negative) Ethyl Alcohol (<10) mg/dL Influenza A (RT-PCR) (Negative) Influenza B (RT-PCR) (Negative) RSV (RT-PCR) (Negative) SARS-CoV-2 RNA (RT-PCR) (Negative) <Eddie Dubois MD - Last Filed: 05/02/24 02:07> ABG Data ABG results: 05/01/24 17:43 Puncture Site Right radial ABG pH 7.409 ABG pCO2 33.8 L ABG pO2 94.2 ABG PO2/FiO2 Ratio 4.49 ABG HCO3 20.9 L ABG O2 Saturation 97.3 ABG O2 Content 13.3 L ABG Base Excess -3.2 A-a Gradient 15.1 Oxyhemoglobin 96.5 Total Hemoglobin 9.7 L O2 Delivery Device Room air O2 Liters/Min 0.0 FiO2 21 <Rufino Weldon MD - Last Filed: 05/01/24 21:46> 05/01/24 17:43 Puncture Site Right radial ABG pH 7.409 ABG pCO2 33.8 L ABG pO2 94.2 ABG PO2/FiO2 Ratio 4.49 ABG HCO3 20.9 L ABG O2 Saturation 97.3 ABG O2 Content 13.3 L ABG Base Excess -3.2 A-a Gradient 15.1 Oxyhemoglobin 96.5 Total Hemoglobin 9.7 L O2 Delivery Device Room air O2 Liters/Min 0.0 FiO2 21 <Eddie Dubois MD - Last Filed: 05/02/24 02:07> Discharge Plan Discharge Clinical Impression: Complicated urinary tract infection, Dementia, Left ureteral calculus, Constipation, Pleural effusion due to CHF (congestive heart failure) <Rufino Weldon MD - Last Filed: 05/01/24 21:46> Patient Disposition: Still a Patient <Rufino Weldon MD - Last Filed: 05/01/24 21:46> Condition: Stable <Rufino Weldon MD - Last Filed: 05/01/24 21:46>
[2024-05-01 19:31] LABS: Amphetamine Screen Urine Negative (Negative); Barbiturate Screen Urine Negative (Negative); Benzodiazepines Screen Urine Negative (Negative); Cannabinoid Screen Urine Negative (Negative); Cocaine Screen Urine Negative (Negative); Methadone Screen Urine Negative (Negative); Opiate Screen Urine Positive (Negative); Phencyclidine Screen Urine Negative (Negative)
--- NOTE | 2024-05-01 20:07 | PC.NURSE ---
External Catheter placed on pt.
--- NOTE | 2024-05-01 20:11 | ECG_ITS ---
Test Date: 2024-05-01 20:16:45 Measurements Intervals [place] Rate: 76 P: -55 AL: 130 QRS: 20 QRSD: 152 T: -26 QT: 426 QTc: 481 Interpretive Statements SINUS RHYTHM WITH OCCASIONAL SUPRAVENTRICULAR PREMATURE COMPLEXES RIGHT BUNDLE BRANCH BLOCK CONSIDER INFERIOR INFARCT, AGE INDETERMINATE BASELINE ARTIFACT- II, III, AVF, V1-V2, V6 ABNORMAL ECG Compared to ECG 05/01/2024 17:32:51 NO SIGNIFICANT CHANGE Electronically Signed On 05-02-2024 06:49:47 DIESEL ENGINE MECHANIC APPRENTICE by David Elizalde D.O.
[2024-05-01] MEDS: MEROPENEM 1 GM/NS 100 ML 1 GM/100 ML BAG IVPB (20:18)
[2024-05-01 20:36] LABS: Free T4 Free Thyroxine Reflex 1.28 ng/dL (0.78-2.19)
[2024-05-01 21:17] LABS: Total Triiodothyronine (T3) 0.82 NG/ML (0.97-1.69)
[2024-05-01 21:58] LABS: Glucose Point of Care 96 mg/dl (65-105)
[2024-05-02] VITALS (23 sets, daily range): BP systolic 148–170; BP diastolic 77–99; PULSE 68–90; RESP 14–22; TEMP 36.4–36.9; O2SAT 95–100
--- NOTE | 2024-05-02 01:15 | PC.NURSE ---
Pts IV infiltrated after CT scan. This RN attempted to obtain new access as well as 2 other ED RNs. Provider made aware and will place ultrasound IV as soon as he is able.
[2024-05-02] MEDS: FUROSEMIDE INJ 40 MG/4 ML VIAL IV PUSH ×3 (01:24→19:22)
--- NOTE | 2024-05-02 02:29 | PM.IMHP ---
H&P: HPI History of Present Illness Date/Time: 05/02/24 02:29 Chief Complaint: 1. Confusion Narrative: Karl Thompson is a 88 yo M with a mHx signficant for GERD, dyslipidemia, BPH, CAD He resides with his daughter and grand daughter and was brought in to the ED for the evaluation of worsening confusion; this has been going on for a few days and the patient is unable to give circumstantial informaton regarding these events. With no known modifying factor, his symptoms are associated with anorexia, an unstable gait, malaise and fatigue. There were no records of vomiting, diarrhea, flank pain, chest pain, falls or skin/joint changes. He does not smoke/chew tobacco, drink alcohol or consume recreational/illicit drugs; Work-up findings: CTAP: 1. Bilateral pleural effusion with adjacent atelectatic changes. 2. Minimal pericardial effusion. ABDOMEN/PELVIS: 1. Abdominal aortic aneurysm. 2. Large sliding hiatus hernia. 3. Constipation. 4. Impacted fecal material seen in the rectum with highly suggestive of proctitis. Clinical evaluation advised. 5. Possible Left lower ureteric stone with no hydronephrotic changes. Smaller left kidney than the right. Highly suggestive right kidney stone. 6. Possible gallbladder stones. Ultrasound evaluation advised. 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 Congestive heart failure Acute kidney injury superimposed on CKD Delirium due to general medical condition Altered mental status Acute UTI Dementia Family History Family History Other Unknown family medical history Social History Social History Smoking status: Never smoker Alcohol intake: unknown Substance use: unknown Substance use type: unknown Lack of Transportation: No Lack of Food: Never True Current Housing: I Have Housing Concerned About Future Housing: No Difficulty Paying Gas/Electric Bills: No Difficulty Paying for Meds: No Currently Unemployed: No Education: Grade School Difficulty w/ Childcare or Family Care: No Spiritual care concerns: No Meds Home Medications and Allergies Home Medications ?Medication ?Instructions ?Recorded ?Confirmed ?Type finasteride 5 mg tablet 5 mg PO DAILY #30 tabs 07/11/22 11/23/22 Rx empagliflozin 10 mg tablet 10 mg PO DAILY 08/08/22 11/23/22 History (Jardiance) escitalopram oxalate 10 mg tablet 10 mg PO HS 08/08/22 11/23/22 History ferrous sulfate 325 mg (65 mg 325 mg PO DAILY 08/08/22 11/23/22 History iron) tablet methenamine hippurate 1 gram tablet 1 g PO DAILY 08/08/22 11/23/22 History metoprolol tartrate 25 mg tablet 25 mg PO HS 08/08/22 11/23/22 History pravastatin 40 mg tablet 40 mg PO HS 08/08/22 11/23/22 History sodium bicarbonate 650 mg tablet 650 mg PO BID 08/08/22 11/23/22 History tamsulosin 0.4 mg capsule 0.4 mg PO HS 08/08/22 11/23/22 History nitroglycerin 0.4 mg sublingual 0.4 mg sublingual Q5MIN PRN Chest 08/30/22 11/23/22 Rx tablet (Nitrostat) Pain #25 tabs pantoprazole 40 mg tablet,delayed 40 mg PO Q12HR #60 tabs 08/30/22 11/23/22 Rx release polyethylene glycol 3350 17 gram 17 g PO QAM #30 ea 11/30/22 Rx oral powder packet (Miralax) Allergies Allergy/AdvReac Type Severity Reaction Status Date / Time No Known Allergies Allergy Verified 11/26/22 12:25 Vital Signs Vital Signs - 24 hr 05/01/24 13:45 05/01/24 13:54 05/01/24 14:00 Temperature 97 F L Pulse Rate 80 80 Respiratory Rate 16 16 Blood Pressure 145/96 H Pulse Oximetry 99 100 99 Oxygen Delivery Room Air Room Air 05/01/24 14:04 05/01/24 14:30 05/01/24 14:54 Temperature 97 F L Pulse Rate 84 77 83 Respiratory Rate 16 20 20 Blood Pressure 145/96 H 143/86 H Pulse Oximetry 97 98 98 Oxygen Delivery 05/01/24 15:30 05/01/24 15:31 05/01/24 15:46 Temperature Pulse Rate 81 73 78 Respiratory Rate 20 19 19 Blood Pressure 151/83 H 143/88 H Pulse Oximetry 100 100 98 Oxygen Delivery 05/01/24 17:02 05/01/24 17:24 05/01/24 17:57 Temperature Pulse Rate 69 73 71 Respiratory Rate 17 18 12 Blood Pressure 158/87 H Pulse Oximetry 98 99 100 Oxygen Delivery 05/01/24 18:01 05/01/24 18:18 05/01/24 18:50 Temperature Pulse Rate 67 66 61 Respiratory Rate 15 18 Blood Pressure 147/99 H Pulse Oximetry 99 98 Oxygen Delivery 05/01/24 19:16 05/01/24 19:30 05/01/24 19:31 Temperature Pulse Rate 69 69 71 Respiratory Rate 18 20 19 Blood Pressure 160/86 H 154/100 H Pulse Oximetry 100 99 98 Oxygen Delivery 05/01/24 19:50 05/01/24 20:01 05/01/24 20:05 Temperature Pulse Rate 78 74 72 Respiratory Rate 18 14 17 Blood Pressure 159/86 H Pulse Oximetry 100 100 Oxygen Delivery 05/01/24 20:15 05/01/24 20:16 05/01/24 20:22 Temperature Pulse Rate 77 74 75 Respiratory Rate 19 17 14 Blood Pressure 144/93 H 144/93 H Pulse Oximetry 100 98 100 Oxygen Delivery 05/01/24 20:30 05/01/24 20:48 05/01/24 22:07 Temperature Pulse Rate 77 79 Respiratory Rate 26 H 21 H 24 H Blood Pressure Pulse Oximetry 97 Oxygen Delivery 05/01/24 22:17 05/01/24 23:37 05/01/24 23:45 Temperature Pulse Rate 87 81 81 Respiratory Rate 20 15 12 Blood Pressure Pulse Oximetry 98 100 100 Oxygen Delivery Exam Const: General: comfortable and no acute distress HENMT: Ears: TM's normal bilaterally Eyes: General: appearance normal, both eyes and all related structures Sclera: sclerae normal Pupils: Equal, round and reactive pupils present Neck: Neck: supple Resp: Effort & Inspection: normal respiratory effort Auscultation: crackles, rales and rhonchi Cardio: Rate: regular rate GI: GI Palp: Yes Soft to palpation Skin: General skin exam: normal color Wounds: no wounds Neuro: Motor exam (neuro): 5/5 motor strength present throughout, Normal motor muscle tone present throughout and Abnormal motor strength present Psych: Other: Confused; H&P: Results Labs Labs: Short CBC 05/01/24 Range/Units 17:22 WBC 4.5 (4.5-10.0) K/mm3 Hgb 9.3 L (14.0-18.0) g/dL Hct 28.5 L (42.0-52.0) % Plt Count 102 L (150-375) k/mm3 BMP 05/01/24 17:22 Sodium 137 Potassium 3.8 Chloride 105 Carbon Dioxide 24 BUN 29 H D Creatinine 2.13 H Glucose 93 Calcium 9.8 Cardiac Enzymes 05/01/24 05/01/24 Range/Units 17:22 20:21 Total Creatine Kinase 34 L (55-170) U/L Troponin I 0.061 H* 0.061 H* (0.000-0.034) ng/mL Liver Function 05/01/24 Range/Units 17:22 Total Bilirubin 0.7 (0.2-1.3) mg/dL AST 17 (17-59) U/L ALT 9 (6-50) U/L Alkaline Phosphatase 75 (38-126) U/L Albumin 3.3 L (3.5-5.1) g/dL Urine 05/01/24 Range/Units 18:35 Urine Color Yellow (Yellow) Urine Appearance Turbid H (Clear) Urine pH 6.0 (5.0-9.0) Ur Specific [place] 1.015 (1.001-1.035) Urine Protein 2+ H (Negative) mg/dL Urine Glucose (UA) Negative (Negative) mg/dL Assessment and Plan Assessment and plan (1) Acute metabolic encephalopathy: Code(s): G93.41 - Metabolic encephalopathy Status: Acute (2) Ureteric calculus: Code(s): N20.1 - Calculus of ureter Status: Acute (3) Proctitis: Code(s): K62.89 - Other specified diseases of anus and rectum Status: Acute (4) Abdominal aortic aneurysm (AAA): Code(s): I71.40 - Abdominal aortic aneurysm, without rupture, unspecified Status: Acute Plan Acute and principal conditions 1. Acute metabolic encephalopathy 2. UTI 3. Probable Proctitis. 4. Elevated troponin; Probable ACS 5. Elevated BNP; fluid overload 6. Physical deconditioning 7. Mild pericardial effusion 8. Bilateral pleural effusion 9. Constipation; Impacted stools 10. Left lower ureteric stone; Right kidney stone Rx: A. Meropenem; Urine and blood culture B. Falls and safety precautions C. ECHO: IV lasix; Strict I/O D. PT eval and Rx Chronic and stable conditions 1. Recurrent depression. 2. BPH. 3. CAD 4. Dyslipidemia. 5. GERD. Miscellaneous care 1. Code status. Full 2. VTE prophylaxis. SCDs; JEAN-PIERRE 3. Nutrition. Regular Quality VTE Prophylaxis VTE prophylaxis: mechanical ordered and pharmacologic ordered Hospitalist MIPS Advance Care Plan I have confirmed that the patient's Advanced Care Plan is present, code status is documented, or surrogate decision maker is listed in patient medical record.: Yes Medication Reconciliation I have utilized all available resources to obtain, update and review the patients current medications (includes all prescriptions, OTC, herbals, cannabis, and nutritional supplements).: Yes The patient is not eligible for med reconciliation; the patient is in a emergent medical situation where delaying treatment would jeopardize the patients health.: Yes
[2024-05-02 07:45] LABS: Basophils Percent Auto 0.8 % (0.2-1.2); Eosinophils Absolute Auto 0.1 K/mm3 (0-0.3); Eosinophils Percent Auto 2.4 % (0-4.4); Hematocrit 28.6 % (42.0-52.0); Hemoglobin 9.3 g/dL (14.0-18.0); Immature Granulocyte Absolute 0.03 K/mm3 (0.00-0.031); Immature Granulocyte Percent A 0.6 % (0-0.5); Immature Platelet Fraction Pct 3.1 % (0.9-11.2); Lymphocytes Absolute Auto 0.73 K/mm3 (0.9-3.2); Lymphocytes Percent Auto 14.4 % (18.3-44.2); Mean Corpuscular HGB Conc 32.5 g/dl (32-36); Mean Corpuscular Hemoglobin 31.8 pg (26-34); Mean Corpuscular Volume 97.9 fl (80-100); Mean Platelet Volume 10.2 fl (7.4-10.4); Monocytes Absolute Auto 0.6 K/mm3 (0.1-0.6); Monocytes Percent Auto 10.8 % (2.6-8.5); Neutrophils Absolute Auto 3.6 K/mm3 (1.3-6.7); Platelet Count Result 97 k/mm3 (150-375); Red Blood Count 2.92 M/mm3 (4.6-6.20); Red Cell Distribution Width 13.2 % (11.5-14.5); White Blood Count 5.1 K/mm3 (4.5-10.0)
[2024-05-02 07:57] LABS: Alanine Aminotransferase 10 U/L (6-50); Albumin Level 3.2 g/dL (3.5-5.1); Alkaline Phosphatase 69 U/L (38-126); Anion Gap 9 mmol/L (4-12); Aspartate Amino Transferase 17 U/L (17-59); Bilirubin,Total 0.7 mg/dL (0.2-1.3); Blood Urea Nitrogen 31 mg/dL (9-20); Calcium 9.7 mg/dL (8.4-10.2); Carbon Dioxide 23 mmol/L (22-30); Chloride 106 mmol/L (98-107); Estimated CRCL calculation 22 ml/min; Estimated Glomerular Filt Rate 31; Glucose 80 mg/dL (65-110); Potassium 3.9 mmol/L (3.4-5.0); Sodium 138 mmol/L (137-145)
--- NOTE | 2024-05-02 09:44 | PC.NURSE ---
Heparin not given due to Platelet count being 97,000.
[2024-05-02] MEDS: MEROPENEM 500 MG/NS 100 ML 500 MG/100 ML BAG 200 MG IVPB ×2 (09:49→22:03)
--- NOTE | 2024-05-02 10:00 | PC.NURSE ---
900mL of yellow urine in suction canister.
--- NOTE | 2024-05-02 12:51 | P.CONUR_ITS ---
Assessment and Plan Assessment and plan (1) Ureteric calculus: Code(s): N20.1 - Calculus of ureter Status: Acute Assessment and Plan: He has a UTI and a left ureteral stone which has been present for at least 18 months. He is not septic. He cannot consent for himself, and his next of kin is unavailable. I do not see evidence to declare an emergency and proceed to a surgery that we do not have consent for, for a stone that does not appear to be obstructive and has been present for over a year. I would medically optimize him, continue IV antibiotics, and if we can get our ducks in a row and we can have informed consent with a POA could consider left ureteroscopy, laser lithotripsy and stent placement. Urology Consult Note HPI Date Seen: 05/02/24 Requesting Physician: Morteza Alarcon MD Primary Care Provider: Miguel Ángel Vigil MD Consult Narrative Narrative: Karl Thompson is a 88 year old male brought to the ED by his family for confusion. History is limited, though he is resting comfortably and denies complaint. He says that he was brought for confusion, but does not feel confused. He has no signs of sepsis, but his urine appears clearly infected. WBC normal, temp normal, vitals normal. CT shows bilateral pleural effusions, proctitis and fecal impaction, significant hiatal hernia, and a distal 1 cm left ureteral stone without hydronephrosis. This stone was present in the mid left ureter in 2022. He is receiving lactulose. I tried to call the admitting hospitalist as well as his next of kin and neither answered the phone. 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 Congestive heart failure Acute kidney injury superimposed on CKD Delirium due to general medical condition Altered mental status Acute UTI Dementia Family History Family History Other Unknown family medical history Social History Social History Smoking status: Never smoker Alcohol intake: unknown Substance use: unknown Substance use type: unknown Lack of Transportation: No Lack of Food: Never True Current Housing: I Have Housing Concerned About Future Housing: No Difficulty Paying Gas/Electric Bills: No Difficulty Paying for Meds: No Currently Unemployed: No Education: Grade School Difficulty w/ Childcare or Family Care: No Spiritual care concerns: No Meds Home Medications and Allergies Home Medications ?Medication ?Instructions ?Recorded ?Confirmed ?Type finasteride 5 mg tablet 5 mg PO DAILY #30 tabs 07/11/22 11/23/22 Rx empagliflozin 10 mg tablet 10 mg PO DAILY 08/08/22 11/23/22 History (Jardiance) escitalopram oxalate 10 mg tablet 10 mg PO HS 08/08/22 11/23/22 History ferrous sulfate 325 mg (65 mg 325 mg PO DAILY 08/08/22 11/23/22 History iron) tablet methenamine hippurate 1 gram tablet 1 g PO DAILY 08/08/22 11/23/22 History metoprolol tartrate 25 mg tablet 25 mg PO HS 08/08/22 11/23/22 History pravastatin 40 mg tablet 40 mg PO HS 08/08/22 11/23/22 History sodium bicarbonate 650 mg tablet 650 mg PO BID 08/08/22 11/23/22 History tamsulosin 0.4 mg capsule 0.4 mg PO HS 08/08/22 11/23/22 History nitroglycerin 0.4 mg sublingual 0.4 mg sublingual Q5MIN PRN Chest 08/30/22 11/23/22 Rx tablet (Nitrostat) Pain #25 tabs pantoprazole 40 mg tablet,delayed 40 mg PO Q12HR #60 tabs 08/30/22 11/23/22 Rx release polyethylene glycol 3350 17 gram 17 g PO QAM #30 ea 11/30/22 Rx oral powder packet (Miralax) Allergies Allergy/AdvReac Type Severity Reaction Status Date / Time No Known Allergies Allergy Verified 11/26/22 12:25 Vital Signs Vital Signs - 24 hr 05/01/24 13:45 05/01/24 13:54 05/01/24 14:00 Temperature 36.1 C L Pulse Rate 80 80 Respiratory Rate 16 16 Blood Pressure 145/96 H Pulse Oximetry 99 100 99 Oxygen Delivery Room Air Room Air 05/01/24 14:04 05/01/24 14:30 05/01/24 14:54 Temperature 36.1 C L Pulse Rate 84 77 83 Respiratory Rate 16 20 20 Blood Pressure 145/96 H 143/86 H Pulse Oximetry 97 98 98 Oxygen Delivery 05/01/24 15:30 05/01/24 15:31 05/01/24 15:46 Temperature Pulse Rate 81 73 78 Respiratory Rate 20 19 19 Blood Pressure 151/83 H 143/88 H Pulse Oximetry 100 100 98 Oxygen Delivery 05/01/24 17:02 05/01/24 17:24 05/01/24 17:57 Temperature Pulse Rate 69 73 71 Respiratory Rate 17 18 12 Blood Pressure 158/87 H Pulse Oximetry 98 99 100 Oxygen Delivery 05/01/24 18:01 05/01/24 18:18 05/01/24 18:50 Temperature Pulse Rate 67 66 61 Respiratory Rate 15 18 Blood Pressure 147/99 H Pulse Oximetry 99 98 Oxygen Delivery 05/01/24 19:16 05/01/24 19:30 05/01/24 19:31 Temperature Pulse Rate 69 69 71 Respiratory Rate 18 20 19 Blood Pressure 160/86 H 154/100 H Pulse Oximetry 100 99 98 Oxygen Delivery 05/01/24 19:50 05/01/24 20:01 05/01/24 20:05 Temperature Pulse Rate 78 74 72 Respiratory Rate 18 14 17 Blood Pressure 159/86 H Pulse Oximetry 100 100 Oxygen Delivery 05/01/24 20:15 05/01/24 20:16 05/01/24 20:22 Temperature Pulse Rate 77 74 75 Respiratory Rate 19 17 14 Blood Pressure 144/93 H 144/93 H Pulse Oximetry 100 98 100 Oxygen Delivery 05/01/24 20:30 05/01/24 20:48 05/01/24 22:07 Temperature Pulse Rate 77 79 Respiratory Rate 26 H 21 H 24 H Blood Pressure Pulse Oximetry 97 Oxygen Delivery 05/01/24 22:17 05/01/24 23:37 05/01/24 23:45 Temperature Pulse Rate 87 81 81 Respiratory Rate 20 15 12 Blood Pressure Pulse Oximetry 98 100 100 Oxygen Delivery 05/02/24 02:49 05/02/24 03:00 05/02/24 03:31 Temperature Pulse Rate 73 72 73 Respiratory Rate 19 19 22 H Blood Pressure 163/84 H Pulse Oximetry Oxygen Delivery 05/02/24 03:45 05/02/24 04:00 05/02/24 04:06 Temperature Pulse Rate 72 72 70 Respiratory Rate 17 15 14 Blood Pressure 163/85 H Pulse Oximetry 96 Oxygen Delivery 05/02/24 04:16 05/02/24 04:45 05/02/24 05:00 Temperature Pulse Rate 68 69 68 Respiratory Rate 20 20 22 H Blood Pressure 166/77 H Pulse Oximetry 100 Oxygen Delivery 05/02/24 05:01 05/02/24 05:15 05/02/24 05:30 Temperature Pulse Rate 74 70 73 Respiratory Rate 22 H 20 18 Blood Pressure 153/83 H Pulse Oximetry Oxygen Delivery 05/02/24 06:00 05/02/24 06:15 05/02/24 06:30 Temperature Pulse Rate 88 75 71 Respiratory Rate 20 14 18 Blood Pressure Pulse Oximetry Oxygen Delivery 05/02/24 06:53 05/02/24 07:30 05/02/24 09:45 Temperature 36.9 C Pulse Rate 69 80 81 Respiratory Rate 14 20 18 Blood Pressure 148/83 H 157/99 H 157/92 H Pulse Oximetry 100 100 96 Oxygen Delivery Exam 2 Narrative: 88 year old male snoring in ED13 with a blanket over him, arousable and answers direct questions but falls back asleep. Denies pain or other complaint. Results Labs 05/02/24 07:38 05/02/24 07:38 Labs: Short CBC 05/01/24 05/02/24 Range/Units 17:22 07:38 WBC 4.5 5.1 (4.5-10.0) K/mm3 Hgb 9.3 L 9.3 L (14.0-18.0) g/dL Hct 28.5 L 28.6 L (42.0-52.0) % Plt Count 102 L 97 L (150-375) k/mm3 BMP 05/01/24 05/02/24 17:22 07:38 Sodium 137 138 Potassium 3.8 3.9 Chloride 105 106 Carbon Dioxide 24 23 BUN 29 H D 31 H Creatinine 2.13 H 2.07 H Glucose 93 80 Calcium 9.8 9.7 Cardiac Enzymes 05/01/24 05/01/24 Range/Units 17:22 20:21 Total Creatine Kinase 34 L (55-170) U/L Troponin I 0.061 H* 0.061 H* (0.000-0.034) ng/mL Liver Function 05/01/24 05/02/24 Range/Units 17:22 07:38 Total Bilirubin 0.7 0.7 (0.2-1.3) mg/dL AST 17 17 (17-59) U/L ALT 9 10 (6-50) U/L Alkaline Phosphatase 75 69 (38-126) U/L Albumin 3.3 L 3.2 L (3.5-5.1) g/dL Urine 05/01/24 Range/Units 18:35 Urine Color Yellow (Yellow) Urine Appearance Turbid H (Clear) Urine pH 6.0 (5.0-9.0) Ur Specific [place] 1.015 (1.001-1.035) Urine Protein 2+ H (Negative) mg/dL Urine Glucose (UA) Negative (Negative) mg/dL
[2024-05-02] MEDS: LACTULOSE 20 GM/30 ML UDC PO (12:52)
--- NOTE | 2024-05-02 12:55 | PC.NURSE ---
Patient repositioned and depend changed.
--- NOTE | 2024-05-02 14:23 | PC.NURSE ---
Soap suds enema given. Patient tolerated approx. 400mL of soap yancy water. Patient instructed to hold the water in as long as he can.
--- NOTE | 2024-05-02 15:28 | P.PNCROSS_ITS ---
Event Note Event Note Event Note: Patient was seen assessed by previous provider same day. I followed up with shayy coelho who is alert and oriented x 2 was able to tell me name and knew he was in the hospital but unable to answer medical history questions. Patient's UA looks suspicious of urinary tract infection last UA in 2022 was positive for Klebsiella pneumoniae resistant to all oral antibiotics only sensitive to meropenem. His CT chest also showed bilateral pleural effusions and BNP was greater than 15,000 last echocardiogram showing LVEF of 50-55% with grade 1 diastolic dysfunction, moderate MR, mild TR, and severe aortic valve calcification. He also had mild elevated troponin likely secondary to ischemic demand denied any chest pain or shortness of breath. He was started on IV meropenem for UTI and also initiated on Lasix with incentive spirometer for bilateral pleural effusions echocardiogram pending. Spoke with urologist regarding patient ureter calculus appears nonobstructing as been there since 2022 no indication for intervention at this time will continue to monitor and patient becomes symptomatic will then take to OR for cystoscopy. CT also showed fecal impaction will continue with current bowel regimen. PT/OT evaluations pending patient currently lives at home with his granddaughter will need for further discharge planning.
--- NOTE | 2024-05-02 16:02 | PC.NURSE ---
Patient linens changed and patient repositioned for comfort.
--- NOTE | 2024-05-02 17:50 | ADMGEN ---
This patient, Karl Thompson, was admitted to Medical Room 261-01. Patient/family oriented to hospital policies and general routines including ID bracelet, bed and alarms, visiting hours, pain management, procedures, bathroom and other care routines, personal items, smoking policy, room service/diet, and visiting hours. Information on how to activate the Rapid Response Team has been discussed. Patient/Family are encouraged to report perceived risks to care and to ask questions if they do not understand what they are told or what they should do.
--- NOTE | 2024-05-02 19:39 | PC.NURSE ---
attempted several calls to daughter Stephen, unable to get through, message left to confirm home medications
[2024-05-02 20:55] LABS: Glucose Point of Care 85 mg/dl (65-105)
[2024-05-02] MEDS: SENNA/DOCUSATE SODIUM TABLET 1 TAB PO (22:00)
[2024-05-02] MEDS: HEPARIN SODIUM 5,000 UNITS/ML VIAL 5000 UNITS SUB-Q (22:01)
[2024-05-02] MEDS: CALCIUM CARBONATE (TUMS) 500 MG (200 MG ELEMENTAL) PO (22:45)
[2024-05-02 22:46] LABS: Glucose Point of Care 100 mg/dl (65-105)
[2024-05-03] VITALS (10 sets, daily range): BP systolic 121–126; BP diastolic 64–69; PULSE 61–84; RESP 18–20; TEMP 36.7–36.8; O2SAT 99–100
[2024-05-03] MEDS: LACTULOSE 20 GM/30 ML UDC PO ×3 (05:28→17:10)
[2024-05-03 06:28] LABS: Basophils Percent Auto 0.4 % (0.2-1.2); Eosinophils Absolute Auto 0.2 K/mm3 (0-0.3); Hematocrit 25.7 % (42.0-52.0); Hemoglobin 8.3 g/dL (14.0-18.0); Immature Granulocyte Absolute 0.02 K/mm3 (0.00-0.031); Immature Granulocyte Percent A 0.4 % (0-0.5); Lymphocytes Absolute Auto 0.87 K/mm3 (0.9-3.2); Lymphocytes Percent Auto 19.6 % (18.3-44.2); Mean Corpuscular HGB Conc 32.3 g/dl (32-36); Mean Corpuscular Hemoglobin 32.3 pg (26-34); Mean Platelet Volume 11.3 fl (7.4-10.4); Monocytes Absolute Auto 0.6 K/mm3 (0.1-0.6); Monocytes Percent Auto 13.5 % (2.6-8.5); Neutrophils Absolute Auto 2.8 K/mm3 (1.3-6.7); Neutrophils Percent Auto 62.1 % (45.5-73.1); Platelet Count Result 105 k/mm3 (150-375); Red Blood Count 2.57 M/mm3 (4.6-6.20); Red Cell Distribution Width 13.5 % (11.5-14.5); White Blood Count 4.5 K/mm3 (4.5-10.0)
--- NOTE | 2024-05-03 07:12 | P.PNIM_ITS ---
Progress Note: A&P Assessment and Plan (1) Acute metabolic encephalopathy: Code(s): G93.41 - Metabolic encephalopathy Status: Acute Assessment and Plan: Patient presented with confusion from reported baseline from family likely secondary to acute infection * ABX Therapy for proctitis and UTI (2) Congestive heart failure: Qualifiers: Heart failure chronicity: acute on chronic Heart failure type: diastolic Qualified Code(s): I50.33 - Acute on chronic diastolic (congestive) heart failure Code(s): I50.9 - Heart failure, unspecified Status: Acute Assessment and Plan: * BNP 98630 * Consult cardiology * Troponin 0.061 likely ischemic demand type 2 * IV Lasix b.i.d. * monitor renal function during diuresis * previous echocardiogram 2022: LVEF 50-55%, grade 1 diastolic dysfunction, severe aortic valve calcification, moderate MR, mild * echocardiogram pending * EKG: SR BBB 76 * chest x-ray: bilateral pleural effusion * Optimize Paramjit inhibitors, beta-blockers, ARNI patient is not on any currently will wait on Echo and cardiology recommendations * Daily weight. * Optimize blood pressure less than 130/80. * Fall risk assessment. (3) Pleural effusion due to CHF (congestive heart failure): Code(s): I50.9 - Heart failure, unspecified Status: Acute Assessment and Plan: * SEE ABOVE #1 * Continue with IV lasix * Incentive spirometer * May add spironolactone (4) Chrissie tropicalis infection: Code(s): B37.9 - Candidiasis, unspecified Status: Acute Assessment and Plan: * Urine grew Chrissie Tropicalis * Fluconazole IV (5) Complicated urinary tract infection: Code(s): N39.0 - Urinary tract infection, site not specified Status: Acute Assessment and Plan: * SEE ABOVE #4 (6) Ureteric calculus: Code(s): N20.1 - Calculus of ureter Status: Acute Assessment and Plan: * Urology was consulted * 6mm Left ureter stone has been present for 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 * Spoke with urologist will treat for UTI no intervention at this time was he does respond to treatment (7) Constipation: Code(s): K59.00 - Constipation, unspecified Status: Acute Assessment and Plan: * CT Imaging impacted fecal matter highly suggestive of proctitis * Bowel regimen: MiraLax, soapsuds enema, lactulose * BM x1 reported overnight (8) Proctitis: Code(s): K62.89 - Other specified diseases of anus and rectum Status: Acute Assessment and Plan: * On IV antibiotic therapy (9) Acute kidney injury superimposed on CKD: Code(s): N17.9 - Acute kidney failure, unspecified; N18.9 - Chronic kidney disease, unspecified Status: Acute Assessment and Plan: * Patient at baseline previous Cr 3.00's * Monitor closely while receiving IV lasix * Avoid nephrotoxic drugs. * Monitor antihypertensive drug therapy. * Avoid NSAIDs. * Routine CMP monitoring GFR. * Monitor electrolytes especially potassium. * Antibiotic doses depending on creatinine clearance. * Pharmacy does medications. * Routine follow-up with Nephrology as an outpatient unless renal function worsens will consult nephrology (10) Hypertension: Code(s): I10 - Essential (primary) hypertension Status: Acute Assessment and Plan: * Resumed Amlodipine * reviewed BP * Monitor per unit protocol * was hypertensive on arrival but 121/64 today (11) Abdominal aortic aneurysm (AAA): Code(s): I71.40 - Abdominal aortic aneurysm, without rupture, unspecified Status: Acute Assessment and Plan: * Ascending aorta measures 3.6 cm. * monitoring outpatient with vascular (12) Acute on chronic anemia: Code(s): D64.9 - Anemia, unspecified Status: Acute Assessment and Plan: * Normocytic anemia * Hgb 9.3>8.3 * resumed iron supplement * continue to trend * Transfuse PRBC if Hgb <7.0 * No evidence of Acute GIB (13) BPH (benign prostatic hyperplasia): Code(s): N40.0 - Benign prostatic hyperplasia without lower urinary tract symptoms Status: Acute Assessment and Plan: * Resume Proscar and Flomax * Monitor for urinary retention Plan Code status: Full code per patient DVT prophylaxis: Heparin Stress ulcer prophylaxis: Protonix 40 daily PT/OT notes: PT/OT evaluation Disposition: Patient continues admission to medical unit for further evaluation and treatment acute on chronic diastolic heart failure and bilateral pleural effusions, metabolic encephalopathy secondary to urinary tract infection. Will continue with current treatment PT/OT evaluation to assist on recommendations for discharge planning. Time Spent With Patient Time with patient: 15 - 25 minutes Subjective Date/time seen: 05/03/24 07:12 Interval history: Patient is a 88 year old male admitted for metabolic encephalopathy, proctitis, fluid overload with bilateral pleural effusions, fecal impaction, and urinary tract infection. 05/03/2024: Patient denied any CP, SOB, or generalized pain. Normal WBC and afebrile. Alert and oreinted x 2 with some confusion but close to baseline was able to answer most questions appropriately. Review of Systems Review of Systems: All systems reviewed & are unremarkable except as noted in HPI and below Exam Narrative: * GENERAL: Alert and oriented x 2. No acute distress. * EYES: EOMI. No scleral icterus. PERRLA. * HEENT: Moist mucous membranes. * LUNGS: Clear to auscultation bilaterally. No accessory muscle use. * CARDIOVASCULAR: Regular rate and rhythm. No murmur. No JVD. S1-S2 * ABDOMEN: Soft, non tenderness and non-distended. No palpable masses. * EXTREMITIES: No edema. Non-tender * SKIN: No rashes or lesions. Skin warm, dry. * NEUROLOGIC: No focal neurological deficits. CN II-XII grossly intact Objective Data Vital Signs Vital Signs: Vital Signs - 24 hr 05/02/24 07:30 05/02/24 09:45 05/02/24 12:57 Temperature 98.5 F Pulse Rate 80 81 86 Respiratory Rate 20 18 18 Blood Pressure 157/99 H 157/92 H 170/82 H Pulse Oximetry 100 96 95 Oxygen Delivery 05/02/24 16:02 05/02/24 18:20 05/02/24 20:00 Temperature Pulse Rate 90 82 80 Respiratory Rate 22 H 20 Blood Pressure 161/88 H Pulse Oximetry 95 99 Oxygen Delivery Room Air 05/02/24 20:00 05/02/24 20:46 05/03/24 00:00 Temperature 97.5 F L Pulse Rate 84 80 72 Respiratory Rate 20 Blood Pressure 156/80 H Pulse Oximetry 99 Oxygen Delivery 05/03/24 04:00 05/03/24 06:00 Temperature 98.3 F Pulse Rate 84 75 Respiratory Rate 20 Blood Pressure 121/64 Pulse Oximetry 100 Oxygen Delivery Intake/Output Intake/Output: Intake & Output 04/30/24 05/01/24 05/02/24 05/03/24 23:59 23:59 23:59 23:59 Intake Total 125 100 600 Output Total 1000 Balance 125 100 -400 Meds/Results Medications: Active Medications Generic Name Dose Route Start Last Admin Trade Name Freq PRN Reason Stop Dose Admin Acetaminophen 650 mg 05/02/24 02:26 Acetaminophen 325 Mg Tablet PO Q4H PRN Mild Pain (1-3) or Fever Hydrocodone Bitart/Acetaminophen 1 tab 05/03/24 07:10 Hydrocodone/Acetaminophen (*Crx) 5-325 Mg Tablet PO Q12H JEAN-PIERRE Albuterol/Ipratropium 3 ml 05/02/24 02:26 Ipratropium 0.5 Mg/Albuterol Sulfate 2.5 Mg Ampul.Neb 3 Ml INHALATION Q4HRT PRN shortness of breath/Wheezing Amlodipine Besylate 5 mg 05/03/24 09:00 Amlodipine Besylate 5 Mg Tablet PO DAILY JEAN-PIERRE Calcium Carbonate 200 mg 05/02/24 22:18 05/02/24 22:45 Calcium Carbonate (Tums) 500 Mg (200 Mg Elemental) PO 200 mg Q6H PRN Administration Indigestion Escitalopram Oxalate 10 mg 05/03/24 21:00 Escitalopram Oxalate 10 Mg Tablet PO HS JEAN-PIERRE Finasteride 5 mg 05/03/24 09:00 Finasteride 5 Mg Tablet PO DAILY JEAN-PIERRE Furosemide 40 mg 05/02/24 09:00 05/02/24 19:22 Furosemide Inj 40 Mg/4 Ml Vial IV PUSH 40 mg BID JEAN-PIERRE Administration Guaifenesin/Dextromethorphan 10 ml 05/02/24 02:26 Guaifenesin/Dextromethorphan 10 Ml Udc PO Q4H PRN Cough Heparin Sodium (Porcine) 5,000 units 05/02/24 09:00 05/02/24 22:01 Heparin Sodium 5,000 Units/Ml Vial SUB-Q 5,000 units Q12HR JEAN-PIERRE Administration Meropenem 500 mg in 100 mls @ 200 mls/hr 05/02/24 09:00 05/02/24 22:03 IVPB 200 mls/hr Q12HR JEAN-PIERRE Administration Fluconazole 200 mg in 100 mls @ 100 mls/hr 05/03/24 09:00 Diflucan 200 Mg/Nacl 100 Ml IVPB DAILY JEAN-PIERRE Lactulose 20 gm 05/02/24 12:00 05/03/24 05:28 Lactulose 20 Gm/30 Ml Udc PO 20 gm Q6HR [facility] Administration Melatonin 5 mg 05/02/24 02:26 Melatonin 5 Mg Tablet PO HS PRN Insomnia Non-Formulary Medication 81 mg 05/03/24 09:00 Aspirin PO 06/02/24 08:59 DAILY [facility] Non-Formulary Medication 325 mg 05/03/24 09:00 Ferrous Sulfate PO 06/02/24 08:59 DAILY [facility] Ondansetron HCl 4 mg 05/02/24 11:04 Ondansetron Inj 4 Mg/2 Ml Vial IV PUSH Q6H PRN Nausea And Vomiting Pantoprazole Sodium 40 mg 05/03/24 09:00 Pantoprazole 40 Mg Tablet PO DAILY [facility] Perflutren Lipid Microsphere 0 ml 05/02/24 02:50 Perflutren Lipid Microspheres 1.5 Ml Vial Diluted To 10 Ml Total Volume IV PUSH 05/05/24 02:50 ONCE PRN adequate visualization Protocol Polyethylene Glycol 17 gm 05/02/24 02:26 Polyethylene Glycol 3350 17 Gm Powd.Pack PO QAM PRN Constipation Polyethylene Glycol 17 gm 05/03/24 09:00 Polyethylene Glycol 3350 17 Gm Powd.Pack PO QAM JEAN-PIERRE Pravastatin Sodium 40 mg 05/03/24 21:00 Pravastatin Sodium 20 Mg Tablet PO HS [facility] Senna/Docusate Sodium 1 tab 05/02/24 21:00 05/02/24 22:00 Senna/Docusate Sodium Tablet PO 1 tab HS [facility] Administration Sodium Bicarbonate 650 mg 05/03/24 09:00 Sodium Bicarbonate Tab 650 Mg Tablet PO BID [facility] Tamsulosin HCl 0.4 mg 05/03/24 09:00 Tamsulosin Hcl 0.4 Mg Capsule PO BID [facility] Radiology Results: ITS Impressions Chest X-Ray 05/01/24 18:19 IMPRESSION: No radiopaque foreign bodies. Minimal opacification the left lung base medially. Clinical correlation advised. If clinically warranted CT is advised. Head CT 05/01/24 21:39 IMPRESSION: No acute intracranial findings. Chest/Abdomen/Pelvis CT 05/01/24 22:09 IMPRESSION: CHEST: 1. Bilateral pleural effusion with adjacent atelectatic changes. 2. Minimal pericardial effusion. ABDOMEN/PELVIS: 1. Abdominal aortic aneurysm. 2. Large sliding hiatus hernia. 3. Constipation. 4. Impacted fecal material seen in the rectum with highly suggestive of proct itis. Clinical evaluation advised. 5. Possible Left lower ureteric stone with no hydronephrotic changes. Smaller left kidney than the right. Highly suggestive right kidney stone. 6. Possible gallbladder stones. Ultrasound evaluation advised. Labs Labs: Laboratory Results - last 24 hr 05/02/24 05/02/24 05/02/24 07:38 20:45 22:42 WBC 5.1 RBC 2.92 L Hgb 9.3 L Hct 28.6 L MCV 97.9 MCH 31.8 MCHC 32.5 RDW 13.2 Plt Count 97 L MPV 10.2 Immature Gran % (Auto) 0.6 H Neut % (Auto) 71.0 Lymph % (Auto) 14.4 L [place] % (Auto) 10.8 H Eos % (Auto) 2.4 Baso % (Auto) 0.8 Lymph # (Auto) 0.73 L [place] # (Auto) 0.6 Eos # (Auto) 0.1 Baso # (Auto) 0.0 Abs Immat Gran (auto) 0.03 Absolute Neuts (auto) 3.6 Absolute Nucleated RBC 0.000 Nucleated RBC % 0.0 % Immature Plt Fraction 3.1 Sodium 138 Potassium 3.9 Chloride 106 Carbon Dioxide 23 Anion Gap 9 BUN 31 H Creatinine 2.07 H Estim Creat Clear Calc 22 Estimated GFR 31 L Glucose 80 POC Capillary Glucose 85 100 Calcium 9.7 Total Bilirubin 0.7 AST 17 ALT 10 Alkaline Phosphatase 69 Total Protein 6.0 L Albumin 3.2 L Quality VTE Prophylaxis VTE prophylaxis: pharmacologic ordered -Patient's previous records reviewed on admission -ER notes reviewed in detail on admission -discussed all findings and current treatment plan with patient/Family/POA -Consultations reviewed for recommendations -Patient's disposition for safe discharge discussed with pillowcase cleaner Dictation performed by [employer] direct speech recognition software, therefore stucco laborer variants and typographical errors may occur. Hospitalist MIPS Advance Care Plan I have confirmed that the patient's Advanced Care Plan is present, code status is documented, or surrogate decision maker is listed in patient medical record.: Yes Medication Reconciliation I have utilized all available resources to obtain, update and review the patients current medications (includes all prescriptions, OTC, herbals, cannabis, and nutritional supplements).: Yes The patient is not eligible for med reconciliation; the patient is in a emergent medical situation where delaying treatment would jeopardize the patients health.: No
[2024-05-03 07:59] LABS: Glucose Point of Care 137 mg/dl (65-105)
[2024-05-03] MEDS: FUROSEMIDE INJ 40 MG/4 ML VIAL IV PUSH ×2 (08:30→17:10)
[2024-05-03] MEDS: PANTOPRAZOLE 40 MG TABLET PO (08:46)
[2024-05-03] MEDS: ASPIRIN 81 MG CHEWABLE TABLET PO (08:46)
[2024-05-03] MEDS: FERROUS SULFATE 325 MG TABLET DR PO (08:46)
[2024-05-03] MEDS: FINASTERIDE 5 MG TABLET PO (08:46)
[2024-05-03] MEDS: HYDROcodone/acetaminophen (*CRX) 5-325 MG TABLET 1 TAB PO ×2 (08:46→20:47)
[2024-05-03] MEDS: amLODIPine BESYLATE 5 MG TABLET PO (08:46)
[2024-05-03] MEDS: HEPARIN SODIUM 5,000 UNITS/ML VIAL 5000 UNITS SUB-Q ×2 (08:46→20:48)
[2024-05-03] MEDS: polyethylene glycoL 3350 17 GM POWD.PACK PO (08:47)
[2024-05-03] MEDS: SODIUM BICARBONATE TAB 650 MG TABLET PO ×2 (08:47→17:17)
[2024-05-03] MEDS: TAMSULOSIN HCL 0.4 MG CAPSULE PO ×2 (08:47→17:17)
[2024-05-03 08:49] LABS: Alanine Aminotransferase 10 U/L (6-50); Albumin Level 2.9 g/dL (3.5-5.1); Alkaline Phosphatase 56 U/L (38-126); Anion Gap 9 mmol/L (4-12); Aspartate Amino Transferase 14 U/L (17-59); Bilirubin,Total 0.6 mg/dL (0.2-1.3); Blood Urea Nitrogen 39 mg/dL (9-20); Calcium 9.4 mg/dL (8.4-10.2); Carbon Dioxide 22 mmol/L (22-30); Chloride 106 mmol/L (98-107); Estimated CRCL calculation 22 ml/min; Estimated Glomerular Filt Rate 28; Glucose 145 mg/dL (65-110); Potassium 3.6 mmol/L (3.4-5.0); Sodium 137 mmol/L (137-145)
[2024-05-03] MEDS: MEROPENEM 500 MG/NS 100 ML 500 MG/100 ML BAG 200 MG IVPB ×2 (08:59→20:48)
[2024-05-03] MEDS: FLUCONAZOLE 200 MG/NACL 100 ML 200 MG/100 ML BAG 100 MG IVPB (10:04)
--- NOTE | 2024-05-03 10:39 | P.PNUR_ITS ---
Progress Note: A&P Assessment and Plan (1) Left ureteral calculus: Code(s): N20.1 - Calculus of ureter Status: Acute Assessment and Plan: asymptomatic left ureteral stone without hydro or signs of sepsis --- given patient mental status and lack of family here for consent, will hold off on surgical intervention as per note yesterday and discussion with hospitalist; he should follow up in office with his POA to discuss elective stone treatment Subjective Subjective Date/Time Seen: 05/03/24 10:39 Interval history: Vitals and WBC normal, no flank pain Review of Systems Review of Systems: ROS unobtainable: Yes unobtainable due to mental status Exam Narrative: no acute distress Objective Data Vital Signs Vital Signs: Vital Signs - 24 hr 05/02/24 12:57 05/02/24 16:02 05/02/24 18:20 Temperature Pulse Rate 86 90 82 Respiratory Rate 18 22 H Blood Pressure 170/82 H 161/88 H Pulse Oximetry 95 95 Oxygen Delivery 05/02/24 20:00 05/02/24 20:00 05/02/24 20:46 Temperature 36.4 C L Pulse Rate 80 84 80 Respiratory Rate 20 20 Blood Pressure 156/80 H Pulse Oximetry 99 99 Oxygen Delivery Room Air 05/03/24 00:00 05/03/24 04:00 05/03/24 06:00 Temperature 36.8 C Pulse Rate 72 84 75 Respiratory Rate 20 Blood Pressure 121/64 Pulse Oximetry 100 Oxygen Delivery 05/03/24 08:00 05/03/24 08:00 05/03/24 08:37 Temperature Pulse Rate 66 Respiratory Rate Blood Pressure Pulse Oximetry 99 99 Oxygen Delivery Room Air Room Air Intake/Output Intake/Output: Intake & Output 04/30/24 05/01/24 05/02/24 05/03/24 23:59 23:59 23:59 23:59 Intake Total 960 027 1294 Output Total 1000 Balance 125 200 80 Meds/Results Medications: Active Medications Generic Name Dose Route Start Last Admin Trade Name Freq PRN Reason Stop Dose Admin Acetaminophen 650 mg 05/02/24 02:26 Acetaminophen 325 Mg Tablet PO Q4H PRN Mild Pain (1-3) or Fever Hydrocodone Bitart/Acetaminophen 1 tab 05/03/24 09:00 05/03/24 08:46 Hydrocodone/Acetaminophen (*Crx) 5-325 Mg Tablet PO 1 tab Q12HR JEAN-PIERRE Administration Albuterol/Ipratropium 3 ml 05/02/24 02:26 Ipratropium 0.5 Mg/Albuterol Sulfate 2.5 Mg Ampul.Neb 3 Ml INHALATION Q4HRT PRN shortness of breath/Wheezing Amlodipine Besylate 5 mg 05/03/24 09:00 05/03/24 08:46 Amlodipine Besylate 5 Mg Tablet PO 5 mg DAILY JEAN-PIERRE Administration Aspirin 81 mg 05/03/24 09:00 05/03/24 08:46 Aspirin 81 Mg Chewable Tablet PO 06/02/24 08:59 81 mg DAILY JEAN-PIERRE Administration Calcium Carbonate 200 mg 05/02/24 22:18 05/02/24 22:45 Calcium Carbonate (Tums) 500 Mg (200 Mg Elemental) PO 200 mg Q6H PRN Administration Indigestion Escitalopram Oxalate 10 mg 05/03/24 21:00 Escitalopram Oxalate 10 Mg Tablet PO HS [facility] Ferrous Sulfate 325 mg 05/03/24 09:00 05/03/24 08:46 Ferrous Sulfate [address] PO 06/02/24 08:59 325 mg DAILY JEAN-PIERRE Administration Finasteride 5 mg 05/03/24 09:00 05/03/24 08:46 Finasteride 5 Mg Tablet PO 5 mg DAILY JEAN-PIERRE Administration Furosemide 40 mg 05/02/24 09:00 05/03/24 08:30 Furosemide Inj 40 Mg/4 Ml Vial IV PUSH 40 mg BID JEAN-PIERRE Administration Guaifenesin/Dextromethorphan 10 ml 05/02/24 02:26 Guaifenesin/Dextromethorphan 10 Ml Udc PO Q4H PRN Cough Heparin Sodium (Porcine) 5,000 units 05/02/24 09:00 05/03/24 08:46 Heparin Sodium 5,000 Units/Ml Vial SUB-Q 5,000 units Q12HR JEAN-PIERRE Administration Meropenem 500 mg in 100 mls @ 200 mls/hr 05/02/24 09:00 05/03/24 08:59 IVPB 200 mls/hr Q12HR JEAN-PIERRE Administration Fluconazole 200 mg in 100 mls @ 100 mls/hr 05/03/24 09:00 05/03/24 10:04 Diflucan 200 Mg/Nacl 100 Ml IVPB 100 mls/hr DAILY JEAN-PIERRE Administration Lactulose 20 gm 05/02/24 12:00 05/03/24 05:28 Lactulose 20 Gm/30 Ml Udc PO 20 gm Q6HR JEAN-PIERRE Administration Melatonin 5 mg 05/02/24 02:26 Melatonin 5 Mg Tablet PO HS PRN Insomnia Ondansetron HCl 4 mg 05/02/24 11:04 Ondansetron Inj 4 Mg/2 Ml Vial IV PUSH Q6H PRN Nausea And Vomiting Pantoprazole Sodium 40 mg 05/03/24 09:00 05/03/24 08:46 Pantoprazole 40 Mg Tablet PO 40 mg DAILY JEAN-PIERRE Administration Perflutren Lipid Microsphere 0 ml 05/02/24 02:50 Perflutren Lipid Microspheres 1.5 Ml Vial Diluted To 10 Ml Total Volume IV PUSH 05/05/24 02:50 ONCE PRN adequate visualization Protocol Polyethylene Glycol 17 gm 05/02/24 02:26 Polyethylene Glycol 3350 17 Gm Powd.Pack PO QAM PRN Constipation Polyethylene Glycol 17 gm 05/03/24 09:00 05/03/24 08:47 Polyethylene Glycol 3350 17 Gm Powd.Pack PO 17 gm QAM JEAN-PIERRE Administration Pravastatin Sodium 40 mg 05/03/24 21:00 Pravastatin Sodium 20 Mg Tablet PO HS JEAN-PIERRE Senna/Docusate Sodium 1 tab 05/02/24 21:00 05/02/24 22:00 Senna/Docusate Sodium Tablet PO 1 tab HS JEAN-PIERRE Administration Sodium Bicarbonate 650 mg 05/03/24 09:00 05/03/24 08:47 Sodium Bicarbonate Tab 650 Mg Tablet PO 650 mg BID JEAN-PIERRE Administration Tamsulosin HCl 0.4 mg 05/03/24 09:00 05/03/24 08:47 Tamsulosin Hcl 0.4 Mg Capsule PO 0.4 mg BID JEAN-PIERRE Administration Radiology Results: ITS Impressions Chest X-Ray 05/01/24 18:19 IMPRESSION: No radiopaque foreign bodies. Minimal opacification the left lung base medially. Clinical correlation advised. If clinically warranted CT is advised. Head CT 05/01/24 21:39 IMPRESSION: No acute intracranial findings. Chest/Abdomen/Pelvis CT 05/01/24 22:09 IMPRESSION: CHEST: 1. Bilateral pleural effusion with adjacent atelectatic changes. 2. Minimal pericardial effusion. ABDOMEN/PELVIS: 1. Abdominal aortic aneurysm. 2. Large sliding hiatus hernia. 3. Constipation. 4. Impacted fecal material seen in the rectum with highly suggestive of proctitis. Clinical evaluation advised. 5. Possible Left lower ureteric stone with no hydronephrotic changes. Smaller left kidney than the right. Highly suggestive right kidney stone. 6. Possible gallbladder stones. Ultrasound evaluation advised. Labs Labs: Laboratory Results - last 24 hr 05/02/24 05/02/24 05/03/24 20:45 22:42 05:23 WBC 4.5 RBC 2.57 L Hgb 8.3 L Hct 25.7 L MCV 100.0 MCH 32.3 MCHC 32.3 RDW 13.5 Plt Count 105 L MPV 11.3 H Immature Gran % (Auto) 0.4 Neut % (Auto) 62.1 Lymph % (Auto) 19.6 [place] % (Auto) 13.5 H Eos % (Auto) 4.0 Baso % (Auto) 0.4 Lymph # (Auto) 0.87 L [place] # (Auto) 0.6 Eos # (Auto) 0.2 Baso # (Auto) 0.0 Abs Immat Gran (auto) 0.02 Absolute Neuts (auto) 2.8 Absolute Nucleated RBC 0.000 Nucleated RBC % 0.0 Sodium Potassium Chloride Carbon Dioxide Anion Gap BUN Creatinine Estim Creat Clear Calc Estimated GFR Glucose POC Capillary Glucose 85 100 Calcium Total Bilirubin AST ALT Alkaline Phosphatase Total Protein Albumin 05/03/24 05/03/24 07:56 08:30 WBC RBC Hgb Hct MCV MCH MCHC RDW Plt Count MPV Immature Gran % (Auto) Neut % (Auto) Lymph % (Auto) [place] % (Auto) Eos % (Auto) Baso % (Auto) Lymph # (Auto) [place] # (Auto) Eos # (Auto) Baso # (Auto) Abs Immat Gran (auto) Absolute Neuts (auto) Absolute Nucleated RBC Nucleated RBC % Sodium 137 Potassium 3.6 Chloride 106 Carbon Dioxide 22 Anion Gap 9 BUN 39 H Creatinine 2.21 H Estim Creat Clear Calc 22 Estimated GFR 28 L Glucose 145 H POC Capillary Glucose 137 H Calcium 9.4 Total Bilirubin 0.6 AST 14 L ALT 10 Alkaline Phosphatase 56 Total Protein 6.0 L Albumin 2.9 L
[2024-05-03 12:00] LABS: Glucose Point of Care 103 mg/dl (65-105)
--- NOTE | 2024-05-03 15:03 | P.CONCA_ITS ---
Assessment and Plan Assessment and plan (1) Non-ST elevation OR (NSTEMI): Code(s): I21.4 - Non-ST elevation (NSTEMI) myocardial infarction Status: Acute (2) Congestive heart failure: Qualifiers: Heart failure type: diastolic Heart failure chronicity: acute on chronic Qualified Code(s): I50.33 - Acute on chronic diastolic (congestive) heart failure Code(s): I50.9 - Heart failure, unspecified Status: Acute (3) Hypertension: Code(s): I10 - Essential (primary) hypertension Status: Acute (4) Abdominal aortic aneurysm (AAA): Code(s): I71.40 - Abdominal aortic aneurysm, without rupture, unspecified Status: Acute Plan Assessment: 1. Hypertension-poorly controlled 2. Elevated troponin, unable to assess chest pain due to patient dementia, EKG shows sinus rhythm with PVCs and right bundle branch block, inferior infarct age indeterminate, no ST elevation 3. Diastolic heart failure with TTE of 50-55% by echo in 2022-NT proBNP elevated 15,600 4. Valvular heart disease by echo in 2022-Moderate mitral regurgitation, severe aortic valve calcification with [id number] aortic stenosis 5. Renal stones 6. UTI 7. Thrombocytopenia-platelet counts 105,000 today 8. Abdominal aortic aneurysm 3.8x3.6 cm 9. Delirium-could be related to UTI 10. Acute on chronic anemia hemoglobin 8.3 today 11. Acute on chronic renal failure-nephrology following Plan: Patient has dementia and hard to obtain symptoms. Hence it is difficult to ascertain whether patient had any significant chest pain. Though troponin is elevated, the elevation is flat without a rise and fall and this could be related to acute on chronic CKD Patient does not have any significant volume overload on exam. Suspect the elevated NT proBNP is also related to acute on chronic CKD Recommend continue home medications aspirin, statin, empagliflozin, amlodipine EKG p.r.n. for chest pain Sublingual nitroglycerin 0.4 mg Q 5 minutes x3 p.r.n. for chest pain TTE Check and replace electrolytes as needed keeping potassium greater than 4 and magnesium greater than 2 Monitor H&H and transfuse if hemoglobin less than 8 Check daily weights, ins and outs, renal function. I would hold off on diuretics given patient appears euvolemic Monitor abdominal aortic aneurysm with repeat ultrasound/CT in 3-6 months Management of other medical problems per primary team History of Present Illness History of Present Illness Consult date/time: 05/03/24 15:03 Reason For Visit: Complicated uti, left ureteral stone, pleural effu Narrative: 88 year old male patient with medical history of dementia, CHF, dyslipidemia, BPH, acute on chronic anemia, GERD, CKD presented with CC of worsening confusion for the past few days. Patient is unable to provide any history due to dementia. History is obtained from the medical chart. Patient lives with his daughter and granddaughter who brought him to the ED for evaluation. Patient was having anorexia, unstable gait, malaise, fatigue. He has not had any chest pain, emesis, diarrhea, flank pain, falls. Troponin is elevated 061 and NT proBNP is elevated to 50,006. Cardiology is consulted for the management of NSTEMI. Workup: Hemoglobin: 8.3, down from 9.3 yesterday Platelet count [id number] Creatinine: 2.21, patient has CKD Troponin 0.061, 0.061 NT proBNP: 60055 EKG: Sinus rhythm, PVCs, right bundle-branch block, inferior infarct age indeterminate TTE in 2022: LVEF 50-55%, mild to moderate aortic stenosis, severe aortic valve calcification, moderate mitral regurgitation, mild tricuspid regurgitation CT chest: No acute pathology CT chest abdomen pelvis: Bilateral pleural effusions, minimum pericardial effusions, abdominal aortic aneurysm, gallbladder stones, possible left ureter stone and right kidney stone, fecal impaction suggestive of proctitis Review of Systems 2 Review of Systems: A complete review of systems could not be performed as patient is unable to provide any history. [facility] Past Medical History Medical History (Updated 05/03/24 @ 07:39 by Debbie Melendez, [place]) Acute on chronic anemia 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 Congestive heart failure Acute kidney injury superimposed on CKD Delirium due to general medical condition Altered mental status Acute UTI Dementia Family History Family History Other Unknown family medical history Social History Social History Smoking status: Former smoker Alcohol intake: never Substance use: never Substance use type: unknown Do You Feel Safe in your Home?: Yes Lack of Transportation: No Lack of Food: Never True Current Housing: I Have Housing Concerned About Future Housing: No Difficulty Paying Gas/Electric Bills: No Difficulty Paying for Meds: No Currently Unemployed: No Education: High School Diploma/GED Difficulty w/ Childcare or Family Care: No Spiritual care concerns: No Meds Home Medications and Allergies Home Medications ?Medication ?Instructions ?Recorded ?Confirmed ?Type finasteride 5 mg tablet 5 mg PO DAILY #30 tabs 07/11/22 05/02/24 Rx empagliflozin 10 mg tablet 10 mg PO DAILY 08/08/22 05/02/24 History (Jardiance) escitalopram oxalate 10 mg tablet 10 mg PO HS 08/08/22 05/02/24 History ferrous sulfate 325 mg (65 mg 325 mg PO DAILY 08/08/22 05/02/24 History iron) tablet pravastatin 40 mg tablet 40 mg PO HS 08/08/22 05/02/24 History sodium bicarbonate 650 mg tablet 650 mg PO BID 08/08/22 05/02/24 History tamsulosin 0.4 mg capsule 0.4 mg PO BID 08/08/22 05/02/24 History polyethylene glycol 3350 17 gram 17 g PO QAM #30 ea 11/30/22 05/02/24 Rx oral powder packet (Miralax) amlodipine 5 mg tablet (Norvasc) 5 mg PO DAILY 05/02/24 05/02/24 History aspirin 81 mg tablet 81 mg PO DAILY 05/02/24 05/02/24 History hydrocodone 5 mg-acetaminophen 325 1 tablet PO Q12H 05/02/24 05/02/24 History mg tablet pantoprazole 40 mg tablet,delayed 40 mg PO DAILY 05/02/24 05/02/24 History release Allergies Allergy/AdvReac Type Severity Reaction Status Date / Time No Known Allergies Allergy Verified 11/26/22 12:25 Vital Signs Vital Signs - 24 hr 05/02/24 16:02 05/02/24 18:20 05/02/24 20:00 Temperature Pulse Rate 90 82 80 Respiratory Rate 22 H 20 Blood Pressure 161/88 H Pulse Oximetry 95 99 Oxygen Delivery Room Air 05/02/24 20:00 05/02/24 20:46 05/03/24 00:00 Temperature 36.4 C L Pulse Rate 84 80 72 Respiratory Rate 20 Blood Pressure 156/80 H Pulse Oximetry 99 Oxygen Delivery 05/03/24 04:00 05/03/24 06:00 05/03/24 08:00 Temperature 36.8 C Pulse Rate 84 75 Respiratory Rate 20 Blood Pressure 121/64 Pulse Oximetry 100 99 Oxygen Delivery Room Air 05/03/24 08:00 05/03/24 08:37 05/03/24 12:00 Temperature Pulse Rate 66 83 Respiratory Rate Blood Pressure Pulse Oximetry 99 Oxygen Delivery Room Air 05/03/24 14:00 Temperature Pulse Rate 68 Respiratory Rate 18 Blood Pressure 124/69 Pulse Oximetry 99 Oxygen Delivery Exam 2 Narrative: General: Alert oriented x3, no acute distress Neck: Supple, no JVD Chest: Bilaterally clear to auscultation, no rales or rhonchi Cardiac: S1, S2 +, regular rate, regular rhythm, no murmurs or rubs Extremities: No pedal edema, no skin rash Neurologic: Baseline dementia, no focal neurological deficits Results Labs and Meds 05/03/24 05:23 05/03/24 08:30 Lab results: Cardiac Enzymes 05/03/24 Range/Units 08:30 AST 14 L (17-59) U/L CBC 05/03/24 Range/Units 05:23 WBC 4.5 (4.5-10.0) K/mm3 RBC 2.57 L (4.6-6.20) M/mm3 Hgb 8.3 L (14.0-18.0) g/dL Hct 25.7 L (42.0-52.0) % Plt Count 105 L (150-375) k/mm3 Lymph # (Auto) 0.87 L (0.9-3.2) K/mm3 Chase # (Auto) 0.6 (0.1-0.6) K/mm3 Eos # (Auto) 0.2 (0-0.3) K/mm3 Baso # (Auto) 0.0 (0.0-0.1) K/mm3 Comprehensive Metabolic Panel 05/03/24 Range/Units 08:30 Sodium 137 (137-145) mmol/L Potassium 3.6 (3.4-5.0) mmol/L Chloride 106 (98-107) mmol/L Carbon Dioxide 22 (22-30) mmol/L BUN 39 H (9-20) mg/dL Creatinine 2.21 H (0.7-1.3) mg/dL Glucose 145 H (65-110) mg/dL Calcium 9.4 (8.4-10.2) mg/dL AST 14 L (17-59) U/L ALT 10 (6-50) U/L Alkaline Phosphatase 56 (38-126) U/L Total Protein 6.0 L (6.3-8.2) g/dL Albumin 2.9 L (3.5-5.1) g/dL Intake and Output 05/02/24 05/03/24 05/03/24 23:59 07:59 15:59 Intake Total 100 600 720 Output Total 1000 Balance 100 -400 720 Intake: IV 100 Meropenem 500 mg/Ns 100 ml 500 100 mg In 100 ml @ 200 mls/hr IVPB Q12HR [facility] Rx#:[id number] Oral 600 720 Output: Catheter Urine 1000 External/Condom 1000 Other: Number of Bowel Movements Today 1
[2024-05-03 16:50] LABS: Glucose Point of Care 98 mg/dl (65-105)
[2024-05-03] MEDS: SENNA/DOCUSATE SODIUM TABLET 1 TAB PO (20:47)
[2024-05-03] MEDS: ESCITALOPRAM OXALATE 10 MG TABLET PO (20:47)
[2024-05-03] MEDS: PRAVASTATIN SODIUM 20 MG TABLET 40 MG PO (20:47)
[2024-05-03 21:03] LABS: Glucose Point of Care 110 mg/dl (65-105)
[2024-05-04] VITALS (9 sets, daily range): BP systolic 117–132; BP diastolic 63–79; PULSE 60–77; RESP 16–20; TEMP 36.5–37; O2SAT 95–100
--- NOTE | 2024-05-04 | ECHO_ITS ---
Patient Info Name: Karl Thompson Age: 88 years : 1935 Gender: Male Ht: 72 in Wt: 156 lbs BSA: 1.89 m2 HR: 60 bpm BP: 126 / 67 mmHg Heart Rhythm: Sinus Rhythm Technical Quality: Poor Exam Date: 05/04/2024 9:55 AM Exam Location: Echo Lab Patient Status: Inpatient Admit Date: 05/01/2024 Staff Ordering Physician: Morteza Alarcon MD Research Nurse Practitioner: Audra Dash RDCS Attending Provider: Morteza Alarcon MD Referring Physician: Agnes RANGEL; Exam Type: CA echo dop color flow w con Study Info Indications - elevated BNP Complete two-dimensional, color flow and Doppler transthoracic echocardiogram is performed with contrast to opacify the left ventricle and to improve the deliniation of the left ventricle endocardial borders. Contrast/Agitated Saline Contrast/Ag. Saline: Definity Amount: 2.00 ml Administered By: Audra Dash RDCS Existing IV Access: Yes IV Access Condition: patent with no signs of infiltration Summary 1. Technically difficult study with limited available views that are poorly visualized. 2. Normal biventricular systolic function. 3. While the aortic valve is not well visualized, the echo Doppler gradients across the valve suggests severe aortic stenosis. Left Ventricle The left ventricle has normal systolic function. Abnormal septal motion consistent with a bundle branch block. Right Ventricle The right ventricle is normal systolic function. Left Atria The left atrium is normal size. Right Atria The right atrium is normal size. Atrial Septum Atrial septum is not visualized. Aortic Valve The aortic valve is not well visualized however the gradients across the valve suggests severe aortic stenosis. Pulmonic Valve The pulmonic valve is not visualized. Mitral Valve Mitral valve is normal. There is mild mitral regurgitation. Tricuspid Valve The tricuspid valve is grossly normal. There is mild tricuspid regurgitation. Pericardium/Pleural There is no pericardial effusion available views of the study. Inferior Vena Cava IVC is not well visualized. Aorta The aorta is not well visualized. Left Ventricular Outflow Tract Name Value Normal LVOT Doppler LVOT Peak Gradient 2 mmHg LVOT Mean Gradient 1 mmHg LVOT VTI 12.56 cm LVOT VTI/AV VTI Ratio 0.14 Mitral Valve Name Value Normal MV Doppler MV Decel [place] 263.72 cm/s2 MV PHT 0 s MV Area (PHT) 2.88 cm2 4.00-5.00 MV Diastolic Function MV E Peak Velocity 69.47 cm/s MV A Peak Velocity 91.41 cm/s MV E/A 0.76 MV Decel Time 0 s MV Annular TDI MV E/e' (Septal) 15.67 <=8.00 MV E/e' (Lateral) 12.26 <=8.00 MV E/e' (Average) 13.97 Tricuspid Valve Name Value Normal TV Regurgitation Doppler TR Peak Velocity 172.06 cm/s TR Peak Gradient 12 mmHg Estimated PAP/RSVP RA Pressure 10 mmHg <=5 PA Systolic Pressure 22 mmHg <36 RV Systolic Pressure 22 mmHg <36 Aortic Valve Name Value Normal AV Doppler AV Peak Velocity 451.29 cm/s AV Peak Gradient 81 mmHg AV Mean Gradient 48 mmHg AV VTI 87.24 cm Ventricles Name Value Normal LV Fractional Shortening/Ejection Fraction 2D/MM LV Diastolic Volume (4C MOD) 91.69 ml LV EF (4C MOD) 63 % LV Diastolic Volume (2C MOD) 67.73 ml LV EF (2C MOD) 55 % LV Diastolic Volume (BP MOD) 79.05 ml 62.00-150.00 LV Diastolic Volume Index (BP MOD) 0.04 l/m2 0.03-0.07 LV Systolic Volume (BP MOD) 32.38 ml 21.00-61.00 LV Systolic Volume Index (BP MOD) 0.02 l/m2 0.01-0.03 LV EF (BP MOD) 59 % 52-72 LV Diastolic Length (4C) 8.50 cm LV Systolic Length (4C) 7.50 cm LV Stroke Volume (4C MOD) 57.55 ml Atria Name Value Normal LA Dimensions LA Volume (4C A-L) 29.20 ml LA Volume (BP A-L) 40.12 ml RA Dimensions RA Area (4C) 16.97 cm2 <=18.00 Report Signatures
[2024-05-04] MEDS: LACTULOSE 20 GM/30 ML UDC PO ×5 (01:00→23:09)
[2024-05-04 05:55] LABS: Basophils Percent Auto 0.6 % (0.2-1.2); Eosinophils Absolute Auto 0.4 K/mm3 (0-0.3); Eosinophils Percent Auto 7.2 % (0-4.4); Hematocrit 25.9 % (42.0-52.0); Hemoglobin 8.3 g/dL (14.0-18.0); Immature Granulocyte Absolute 0.03 K/mm3 (0.00-0.031); Immature Granulocyte Percent A 0.6 % (0-0.5); Immature Platelet Fraction Pct 4.1 % (0.9-11.2); Lymphocytes Absolute Auto 1.77 K/mm3 (0.9-3.2); Lymphocytes Percent Auto 34.6 % (18.3-44.2); Mean Corpuscular Hemoglobin 31.8 pg (26-34); Mean Corpuscular Volume 99.2 fl (80-100); Mean Platelet Volume 10.4 fl (7.4-10.4); Monocytes Absolute Auto 0.8 K/mm3 (0.1-0.6); Monocytes Percent Auto 15.5 % (2.6-8.5); Neutrophils Absolute Auto 2.1 K/mm3 (1.3-6.7); Neutrophils Percent Auto 41.5 % (45.5-73.1); Platelet Count Result 100 k/mm3 (150-375); Red Blood Count 2.61 M/mm3 (4.6-6.20); Red Cell Distribution Width 13.5 % (11.5-14.5); White Blood Count 5.1 K/mm3 (4.5-10.0)
[2024-05-04 06:11] LABS: Alanine Aminotransferase 10 U/L (6-50); Albumin Level 3.1 g/dL (3.5-5.1); Alkaline Phosphatase 62 U/L (38-126); Anion Gap 11 mmol/L (4-12); Aspartate Amino Transferase 15 U/L (17-59); Bilirubin,Total 0.6 mg/dL (0.2-1.3); Blood Urea Nitrogen 39 mg/dL (9-20); Calcium 9.1 mg/dL (8.4-10.2); Carbon Dioxide 25 mmol/L (22-30); Chloride 101 mmol/L (98-107); Estimated CRCL calculation 19 ml/min; Estimated Glomerular Filt Rate 24; Glucose 91 mg/dL (65-110); Potassium 3.9 mmol/L (3.4-5.0); Sodium 137 mmol/L (137-145)
[2024-05-04 07:46] LABS: Glucose Point of Care 99 mg/dl (65-105)
[2024-05-04] MEDS: ASPIRIN 81 MG CHEWABLE TABLET PO (08:25)
[2024-05-04] MEDS: SODIUM BICARBONATE TAB 650 MG TABLET PO ×2 (08:25→16:22)
[2024-05-04] MEDS: amLODIPine BESYLATE 5 MG TABLET PO (08:25)
[2024-05-04] MEDS: HYDROcodone/acetaminophen (*CRX) 5-325 MG TABLET 1 TAB PO ×2 (08:25→20:05)
[2024-05-04] MEDS: FINASTERIDE 5 MG TABLET PO (08:25)
[2024-05-04] MEDS: FUROSEMIDE INJ 40 MG/4 ML VIAL IV PUSH (08:25)
[2024-05-04] MEDS: PANTOPRAZOLE 40 MG TABLET PO (08:26)
[2024-05-04] MEDS: MEROPENEM 500 MG/NS 100 ML 500 MG/100 ML BAG 200 MG IVPB (08:26)
[2024-05-04] MEDS: HEPARIN SODIUM 5,000 UNITS/ML VIAL 5000 UNITS SUB-Q ×2 (08:26→20:05)
[2024-05-04] MEDS: TAMSULOSIN HCL 0.4 MG CAPSULE PO ×2 (08:26→16:22)
[2024-05-04] MEDS: polyethylene glycoL 3350 17 GM POWD.PACK PO (08:26)
[2024-05-04] MEDS: FERROUS SULFATE 325 MG TABLET DR PO (08:26)
[2024-05-04] MEDS: FLUCONAZOLE 200 MG/NACL 100 ML 200 MG/100 ML BAG 100 MG IVPB (08:59)
[2024-05-04] MEDS: PERFLUTREN LIPID MICROSPHERES 1.5 ML VIAL DILUTED TO 10 ML TOTAL VOLUME IV PUSH (10:28)
--- NOTE | 2024-05-04 10:37 | P.PNIM_ITS ---
Progress Note: A&P Assessment and Plan (1) Acute metabolic encephalopathy: Code(s): G93.41 - Metabolic encephalopathy Status: Acute Assessment and Plan: Patient presented with confusion from reported baseline from family likely secondary to acute infection * ABX Therapy for proctitis and UTI 05/04: * Improving (2) Congestive heart failure: Qualifiers: Heart failure chronicity: acute on chronic Heart failure type: diastolic Qualified Code(s): I50.33 - Acute on chronic diastolic (congestive) heart failure Code(s): I50.9 - Heart failure, unspecified Status: Acute Assessment and Plan: * BNP 61957 * Consult cardiology * Troponin 0.061 likely ischemic demand type 2 * IV Lasix b.i.d. * monitor renal function during diuresis * previous echocardiogram 2022: LVEF 50-55%, grade 1 diastolic dysfunction, severe aortic valve calcification, moderate MR, mild * echocardiogram pending * EKG: SR BBB 76 * chest x-ray: bilateral pleural effusion * Optimize Paramjit inhibitors, beta-blockers, ARNI patient is not on any currently will wait on Echo and cardiology recommendations * Daily weight. * Optimize blood pressure less than 130/80. * Fall risk assessment. 05/04: * Cr bump will stop lasix patient appears euvolemic today (3) Pleural effusion due to CHF (congestive heart failure): Code(s): I50.9 - Heart failure, unspecified Status: Acute Assessment and Plan: * SEE ABOVE #1 * Continue with IV lasix * Incentive spirometer * May add spironolactone 05/04: * On RA stopped lasix (4) Chrissie tropicalis infection: Code(s): B37.9 - Candidiasis, unspecified Status: Acute Assessment and Plan: * Urine grew Chrissie Tropicalis * Fluconazole IV 05/04: * Switch to PO x14 days (5) Complicated urinary tract infection: Code(s): N39.0 - Urinary tract infection, site not specified Status: Acute Assessment and Plan: * SEE ABOVE #4 (6) Ureteric calculus: Code(s): N20.1 - Calculus of ureter Status: Acute Assessment and Plan: * Urology was consulted * 6mm Left ureter stone has been present for 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 * Spoke with urologist will treat for UTI no intervention at this time was he does respond to treatment * PO Augmentin x 10 days (7) Constipation: Code(s): K59.00 - Constipation, unspecified Status: Acute Assessment and Plan: * CT Imaging impacted fecal matter highly suggestive of proctitis * Bowel regimen: MiraLax, soapsuds enema, lactulose * BM x1 reported overnight (8) Proctitis: Code(s): K62.89 - Other specified diseases of anus and rectum Status: Acute Assessment and Plan: * On IV antibiotic therapy 05/04: * doxycycline 7 days (9) Acute kidney injury superimposed on CKD: Code(s): N17.9 - Acute kidney failure, unspecified; N18.9 - Chronic kidney disease, unspecified Status: Acute Assessment and Plan: * Patient at baseline previous Cr 3.00's * Monitor closely while receiving IV lasix * Avoid nephrotoxic drugs. * Monitor antihypertensive drug therapy. * Avoid NSAIDs. * Routine CMP monitoring GFR. * Monitor electrolytes especially potassium. * Antibiotic doses depending on creatinine clearance. * Pharmacy does medications. * Routine follow-up with Nephrology as an outpatient unless renal function worsens will consult nephrology 05/04: * Cr bumped * Holding lasix (10) Hypertension: Code(s): I10 - Essential (primary) hypertension Status: Acute Assessment and Plan: * Resumed Amlodipine * reviewed BP * Monitor per unit protocol * was hypertensive on arrival but 121/64 today (11) Abdominal aortic aneurysm (AAA): Code(s): I71.40 - Abdominal aortic aneurysm, without rupture, unspecified Status: Acute Assessment and Plan: * Ascending aorta measures 3.6 cm. * monitoring outpatient with vascular (12) Acute on chronic anemia: Code(s): D64.9 - Anemia, unspecified Status: Acute Assessment and Plan: * Normocytic anemia * Hgb 9.3>8.3 * resumed iron supplement * continue to trend * Transfuse PRBC if Hgb <7.0 * No evidence of Acute GIB (13) BPH (benign prostatic hyperplasia): Code(s): N40.0 - Benign prostatic hyperplasia without lower urinary tract symptoms Status: Acute Assessment and Plan: * Resume Proscar and Flomax * Monitor for urinary retention Plan Code status: Full code per patient DVT prophylaxis: Heparin Stress ulcer prophylaxis: Protonix 40 daily PT/OT notes: PT/OT evaluation Disposition: Patient continues admission to medical unit for further evaluation and treatment acute on chronic diastolic heart failure and bilateral pleural effusions, metabolic encephalopathy secondary to urinary tract infection. Switched to PO ABX therapy and oral fluconazole. Plan to discharge to home with family likely tomorrow pending Echo and PT/OT eval. Time Spent With Patient Time with patient: 15 - 25 minutes Subjective Date/time seen: 05/04/24 10:37 Interval history: Patient is a 88 year old male admitted for metabolic encephalopathy, proctitis, fluid overload with bilateral pleural effusions, fecal impaction, and urinary tract infection. 05/04/2024: Patient feeling well today reported no complaints denied SOB or CP. Transitioned to PO ABX. Did hold Lasix today had bump in CR. Patient alert oriented x2 pleasantly confused. Review of Systems Review of Systems: Alert and oriented x2 with some baseline confusion All systems reviewed & are unremarkable except as noted in HPI and below ROS unobtainable: Yes unobtainable due to mental status Exam Narrative: * GENERAL: Alert and oriented x 2. No acute distress. * EYES: EOMI. No scleral icterus. PERRLA. * HEENT: Moist mucous membranes. * LUNGS: Diminished to auscultation bilaterally. No accessory muscle use. * CARDIOVASCULAR: Regular rate and rhythm. murmur. * ABDOMEN: Soft, non tenderness and non-distended. No palpable masses. * EXTREMITIES: 1+ BLE edema. Non-tender * SKIN: No rashes or lesions. Skin warm, dry. * NEUROLOGIC: No focal neurological deficits. Psych: Other: Confused; Objective Data Vital Signs Vital Signs: Vital Signs - 24 hr 05/03/24 12:00 05/03/24 14:00 05/03/24 16:00 Temperature Pulse Rate 83 68 77 Respiratory Rate 18 Blood Pressure 124/69 Pulse Oximetry 99 Oxygen Delivery 05/03/24 20:00 05/03/24 20:00 05/03/24 22:00 Temperature 98.1 F Pulse Rate 77 74 61 Respiratory Rate 18 20 Blood Pressure 126/67 Pulse Oximetry 99 99 Oxygen Delivery Room Air 05/04/24 00:00 05/04/24 04:00 05/04/24 06:00 Temperature 98.2 F Pulse Rate 65 60 61 Respiratory Rate 20 Blood Pressure 132/64 Pulse Oximetry 100 Oxygen Delivery Intake/Output Intake/Output: Intake & Output 05/01/24 05/02/24 05/03/24 05/04/24 23:59 23:59 23:59 23:59 Intake Total 412 657 9382 880 Output Total 1550 1100 Balance 392 329 8987 -220 Meds/Results Medications: Active Medications Generic Name Dose Route Start Last Admin Trade Name Freq PRN Reason Stop Dose Admin Acetaminophen 650 mg 05/02/24 02:26 Acetaminophen 325 Mg Tablet PO Q4H PRN Mild Pain (1-3) or Fever Hydrocodone Bitart/Acetaminophen 1 tab 05/03/24 09:00 05/04/24 08:25 Hydrocodone/Acetaminophen (*Crx) 5-325 Mg Tablet PO 1 tab Q12HR JEAN-PIERRE Administration Albuterol/Ipratropium 3 ml 05/02/24 02:26 Ipratropium 0.5 Mg/Albuterol Sulfate 2.5 Mg Ampul.Neb 3 Ml INHALATION Q4HRT PRN shortness of breath/Wheezing Amlodipine Besylate 5 mg 05/03/24 09:00 05/04/24 08:25 Amlodipine Besylate 5 Mg Tablet PO 5 mg DAILY JEAN-PIERRE Administration Aspirin 81 mg 05/03/24 09:00 05/04/24 08:25 Aspirin 81 Mg Chewable Tablet PO 06/02/24 08:59 81 mg DAILY JEAN-PIERRE Administration Calcium Carbonate 200 mg 05/02/24 22:18 05/02/24 22:45 Calcium Carbonate (Tums) 500 Mg (200 Mg Elemental) PO 200 mg Q6H PRN Administration Indigestion Escitalopram Oxalate 10 mg 05/03/24 21:00 05/03/24 20:47 Escitalopram Oxalate 10 Mg Tablet PO 10 mg HS JEAN-PIERRE Administration Ferrous Sulfate 325 mg 05/03/24 09:00 05/04/24 08:26 Ferrous Sulfate [address] PO 06/02/24 08:59 325 mg DAILY JEAN-PIERRE Administration Finasteride 5 mg 05/03/24 09:00 05/04/24 08:25 Finasteride 5 Mg Tablet PO 5 mg DAILY JEAN-PIERRE Administration Furosemide 40 mg 05/02/24 09:00 05/04/24 08:25 Furosemide Inj 40 Mg/4 Ml Vial IV PUSH 40 mg BID JEAN-PIERRE Administration Guaifenesin/Dextromethorphan 10 ml 05/02/24 02:26 Guaifenesin/Dextromethorphan 10 Ml Udc PO Q4H PRN Cough Heparin Sodium (Porcine) 5,000 units 05/02/24 09:00 05/04/24 08:26 Heparin Sodium 5,000 Units/Ml Vial SUB-Q 5,000 units Q12HR JEAN-PIERRE Administration Meropenem 500 mg in 100 mls @ 200 mls/hr 05/02/24 09:00 05/04/24 08:56 IVPB Infused Q12HR JEAN-PIERRE Infusion Fluconazole 200 mg in 100 mls @ 100 mls/hr 05/03/24 09:00 05/04/24 09:59 Diflucan 200 Mg/Nacl 100 Ml IVPB Infused DAILY JEAN-PIERRE Infusion Lactulose 20 gm 05/02/24 12:00 05/04/24 06:00 Lactulose 20 Gm/30 Ml Udc PO 20 gm Q6HR JEAN-PIERRE Administration Melatonin 5 mg 05/02/24 02:26 Melatonin 5 Mg Tablet PO HS PRN Insomnia Ondansetron HCl 4 mg 05/02/24 11:04 Ondansetron Inj 4 Mg/2 Ml Vial IV PUSH Q6H PRN Nausea And Vomiting Pantoprazole Sodium 40 mg 05/03/24 09:00 05/04/24 08:26 Pantoprazole 40 Mg Tablet PO 40 mg DAILY JEAN-PIERRE Administration Perflutren Lipid Microsphere 0 ml 05/02/24 02:50 Perflutren Lipid Microspheres 1.5 Ml Vial Diluted To 10 Ml Total Volume IV PUSH 05/05/24 02:50 ONCE PRN adequate visualization Protocol Polyethylene Glycol 17 gm 05/02/24 02:26 Polyethylene Glycol 3350 17 Gm Powd.Pack PO QAM PRN Constipation Polyethylene Glycol 17 gm 05/03/24 09:00 05/04/24 08:26 Polyethylene Glycol 3350 17 Gm Powd.Pack PO 17 gm QAM JEAN-PIERRE Administration Pravastatin Sodium 40 mg 05/03/24 21:00 05/03/24 20:47 Pravastatin Sodium 20 Mg Tablet PO 40 mg HS JEAN-PIERRE Administration Senna/Docusate Sodium 1 tab 05/02/24 21:00 05/03/24 20:47 Senna/Docusate Sodium Tablet PO 1 tab HS JEAN-PIERRE Administration Sodium Bicarbonate 650 mg 05/03/24 09:00 05/04/24 08:25 Sodium Bicarbonate Tab 650 Mg Tablet PO 650 mg BID JEAN-PIERRE Administration Tamsulosin HCl 0.4 mg 05/03/24 09:00 05/04/24 08:26 Tamsulosin Hcl 0.4 Mg Capsule PO 0.4 mg BID JEAN-PIERRE Administration Radiology Results: ITS Impressions Chest X-Ray 05/01/24 18:19 IMPRESSION: No radiopaque foreign bodies. Minimal opacification the left lung base medially. Clinical correlation advised. If clinically warranted CT is advised. Head CT 05/01/24 21:39 IMPRESSION: No acute intracranial findings. Chest/Abdomen/Pelvis CT 05/01/24 22:09 IMPRESSION: CHEST: 1. Bilateral pleural effusion with adjacent atelectatic changes. 2. Minimal pericardial effusion. ABDOMEN/PELVIS: 1. Abdominal aortic aneurysm. 2. Large sliding hiatus hernia. 3. Constipation. 4. Impacted fecal material seen in the rectum with highly suggestive of proctitis. Clinical evaluation advised. 5. Possible Left lower ureteric stone with no hydronephrotic changes. Smaller left kidney than the right. Highly suggestive right kidney stone. 6. Possible gallbladder stones. Ultrasound evaluation advised. Labs Labs: Laboratory Results - last 24 hr 05/03/24 05/03/24 05/03/24 11:57 16:47 19:37 WBC RBC Hgb Hct MCV MCH MCHC RDW Plt Count MPV Immature Gran % (Auto) Neut % (Auto) Lymph % (Auto) [place] % (Auto) Eos % (Auto) Baso % (Auto) Lymph # (Auto) [place] # (Auto) Eos # (Auto) Baso # (Auto) Abs Immat Gran (auto) Absolute Neuts (auto) Absolute Nucleated RBC Nucleated RBC % % Immature Plt Fraction Sodium Potassium Chloride Carbon Dioxide Anion Gap BUN Creatinine Estim Creat Clear Calc Estimated GFR Glucose POC Capillary Glucose 103 98 110 H Calcium Total Bilirubin AST ALT Alkaline Phosphatase Total Protein Albumin 05/04/24 05/04/24 05:44 07:43 WBC 5.1 RBC 2.61 L Hgb 8.3 L Hct 25.9 L MCV 99.2 MCH 31.8 MCHC 32.0 RDW 13.5 Plt Count 100 L MPV 10.4 Immature Gran % (Auto) 0.6 H Neut % (Auto) 41.5 L Lymph % (Auto) 34.6 [place] % (Auto) 15.5 H Eos % (Auto) 7.2 H Baso % (Auto) 0.6 Lymph # (Auto) 1.77 [place] # (Auto) 0.8 H Eos # (Auto) 0.4 H Baso # (Auto) 0.0 Abs Immat Gran (auto) 0.03 Absolute Neuts (auto) 2.1 Absolute Nucleated RBC 0.000 Nucleated RBC % 0.0 % Immature Plt Fraction 4.1 Sodium 137 Potassium 3.9 Chloride 101 Carbon Dioxide 25 Anion Gap 11 BUN 39 H Creatinine 2.57 H Estim Creat Clear Calc 19 Estimated GFR 24 L Glucose 91 POC Capillary Glucose 99 Calcium 9.1 Total Bilirubin 0.6 AST 15 L ALT 10 Alkaline Phosphatase 62 Total Protein 6.0 L Albumin 3.1 L Quality VTE Prophylaxis VTE prophylaxis: pharmacologic ordered -Patient's previous records reviewed on admission -ER notes reviewed in detail on admission -discussed all findings and current treatment plan with patient/Family/POA -Consultations reviewed for recommendations -Patient's disposition for safe discharge discussed with nurse case manager Dictation performed by [employer] direct speech recognition software, therefore buffer copper variants and typographical errors may occur. Hospitalist MIPS Advance Care Plan I have confirmed that the patient's Advanced Care Plan is present, code status is documented, or surrogate decision maker is listed in patient medical record.: Yes Medication Reconciliation I have utilized all available resources to obtain, update and review the patients current medications (includes all prescriptions, OTC, herbals, cannabis, and nutritional supplements).: Yes The patient is not eligible for med reconciliation; the patient is in a emergent medical situation where delaying treatment would jeopardize the patients health.: No
[2024-05-04 11:59] LABS: Glucose Point of Care 98 mg/dl (65-105)
--- NOTE | 2024-05-04 12:00 | IVDEFINITY ---
Prior to administration of IV Definity the patient was educated on the risks and benefits of the imaging enhancing agent including potential adverse side effects. The patient verbalized understanding. Allergies were verified. No exclusion criteria were identified and at least one of the following inclusion criteria were met: 1) physician request, 2) patient technically difficult to image (per the [place] [employer] guidelines of two or more segments not discernable within the apical view), or 3) questionable left ventricular function. ?
[2024-05-04] MEDS: DOXYCYCLINE HYCLATE 100 MG TABLET PO ×2 (16:22→20:05)
[2024-05-04] MEDS: AMOXICILLIN/CLAVULANATE K 875-125 MG TAB 1 TABLET PO ×2 (16:22→20:05)
[2024-05-04 17:13] LABS: Glucose Point of Care 104 mg/dl (65-105)
[2024-05-04 19:23] LABS: Glucose Point of Care 99 mg/dl (65-105)
[2024-05-04] MEDS: SENNA/DOCUSATE SODIUM TABLET 1 TAB PO (20:05)
[2024-05-04] MEDS: ESCITALOPRAM OXALATE 10 MG TABLET PO (20:05)
[2024-05-04] MEDS: PRAVASTATIN SODIUM 20 MG TABLET 40 MG PO (20:05)
[2024-05-05] VITALS: PULSE 81
[2024-05-05 04:00] VITALS: PULSE 84
[2024-05-05 04:30] VITALS: BP 138/79; PULSE 85; RESP 16; TEMP 37.2; O2SAT 99
[2024-05-05 05:21] LABS: Basophils Percent Auto 0.8 % (0.2-1.2); Eosinophils Absolute Auto 0.3 K/mm3 (0-0.3); Eosinophils Percent Auto 6.3 % (0-4.4); Hematocrit 26.4 % (42.0-52.0); Hemoglobin 8.4 g/dL (14.0-18.0); Immature Granulocyte Absolute 0.03 K/mm3 (0.00-0.031); Immature Granulocyte Percent A 0.6 % (0-0.5); Lymphocytes Absolute Auto 1.47 K/mm3 (0.9-3.2); Lymphocytes Percent Auto 28.2 % (18.3-44.2); Mean Corpuscular HGB Conc 31.8 g/dl (32-36); Mean Corpuscular Hemoglobin 31.5 pg (26-34); Mean Corpuscular Volume 98.9 fl (80-100); Mean Platelet Volume 10.5 fl (7.4-10.4); Monocytes Absolute Auto 0.7 K/mm3 (0.1-0.6); Monocytes Percent Auto 13.6 % (2.6-8.5); Neutrophils Absolute Auto 2.6 K/mm3 (1.3-6.7); Neutrophils Percent Auto 50.5 % (45.5-73.1); Platelet Count Result 102 k/mm3 (150-375); Red Blood Count 2.67 M/mm3 (4.6-6.20); Red Cell Distribution Width 13.6 % (11.5-14.5); White Blood Count 5.2 K/mm3 (4.5-10.0)
[2024-05-05 05:30] LABS: Alanine Aminotransferase 10 U/L (6-50); Albumin Level 3.2 g/dL (3.5-5.1); Alkaline Phosphatase 66 U/L (38-126); Anion Gap 10 mmol/L (4-12); Aspartate Amino Transferase 15 U/L (17-59); Bilirubin,Total 0.7 mg/dL (0.2-1.3); Blood Urea Nitrogen 36 mg/dL (9-20); Calcium 9.4 mg/dL (8.4-10.2); Carbon Dioxide 25 mmol/L (22-30); Chloride 102 mmol/L (98-107); Estimated CRCL calculation 18 ml/min; Estimated Glomerular Filt Rate 22; Glucose 98 mg/dL (65-110); Potassium 3.2 mmol/L (3.4-5.0); Sodium 137 mmol/L (137-145)
[2024-05-05] MEDS: LACTULOSE 20 GM/30 ML UDC PO ×2 (06:09→12:09)
[2024-05-05 07:46] LABS: Glucose Point of Care 100 mg/dl (65-105)
[2024-05-05] MEDS: amLODIPine BESYLATE 5 MG TABLET PO (09:32)
[2024-05-05] MEDS: FERROUS SULFATE 325 MG TABLET DR PO (09:33)
[2024-05-05] MEDS: ASPIRIN 81 MG CHEWABLE TABLET PO (09:33)
[2024-05-05] MEDS: AMOXICILLIN/CLAVULANATE K 875-125 MG TAB 1 TABLET PO (09:33)
[2024-05-05] MEDS: FINASTERIDE 5 MG TABLET PO (09:33)
[2024-05-05] MEDS: DOXYCYCLINE HYCLATE 100 MG TABLET PO (09:33)
[2024-05-05] MEDS: FLUCONAZOLE 100 MG TABLET 200 MG PO (09:33)
[2024-05-05] MEDS: HYDROcodone/acetaminophen (*CRX) 5-325 MG TABLET 1 TAB PO (09:33)
[2024-05-05] MEDS: PANTOPRAZOLE 40 MG TABLET PO (09:34)
[2024-05-05] MEDS: TAMSULOSIN HCL 0.4 MG CAPSULE PO ×2 (09:34→16:18)
[2024-05-05] MEDS: SODIUM BICARBONATE TAB 650 MG TABLET PO ×2 (09:34→16:18)
[2024-05-05] MEDS: polyethylene glycoL 3350 17 GM POWD.PACK PO (09:34)
[2024-05-05 09:35] VITALS: PULSE 80
[2024-05-05] MEDS: HEPARIN SODIUM 5,000 UNITS/ML VIAL 5000 UNITS SUB-Q (09:38)
--- NOTE | 2024-05-05 10:17 | P.DS_ITS ---
DS: Admitting Diagnosis Discharge Date 05/05/2024 Admitting Diagnosis Metabolic encephalopathy/ UTI left hydronephrosis with ureters stone/ congestive heart failure/ proctitis/ UTI DS: Discharge Diagnosis Discharge Diagnosis (1) Acute metabolic encephalopathy: Code(s): G93.41 - Metabolic encephalopathy Status: Acute Assessment and Plan: Patient presented with confusion from reported baseline from family likely secondary to acute infection * ABX Therapy for proctitis and UTI 05/04: * Improving (2) Congestive heart failure: Qualifiers: Heart failure chronicity: acute on chronic Heart failure type: diastolic Qualified Code(s): I50.33 - Acute on chronic diastolic (congestive) heart failure Code(s): I50.9 - Heart failure, unspecified Status: Acute Assessment and Plan: * BNP 14100 * Consult cardiology * Troponin 0.061 likely ischemic demand type 2 * IV Lasix b.i.d. * monitor renal function during diuresis * previous echocardiogram 2022: LVEF 50-55%, grade 1 diastolic dysfunction, severe aortic valve calcification, moderate MR, mild * echocardiogram pending * EKG: SR BBB 76 * chest x-ray: bilateral pleural effusion * Optimize Paramjit inhibitors, beta-blockers, ARNI patient is not on any currently will wait on Echo and cardiology recommendations * Daily weight. * Optimize blood pressure less than 130/80. * Fall risk assessment. 05/04: * Cr bump will stop lasix patient appears euvolemic today (3) Pleural effusion due to CHF (congestive heart failure): Code(s): I50.9 - Heart failure, unspecified Status: Acute Assessment and Plan: * SEE ABOVE #1 * Continue with IV lasix * Incentive spirometer * May add spironolactone 05/04: * On RA stopped lasix (4) Chrissie tropicalis infection: Code(s): B37.9 - Candidiasis, unspecified Status: Acute Assessment and Plan: * Urine grew Chrissie Tropicalis * Fluconazole IV 05/04: * Switch to PO x14 days (5) Complicated urinary tract infection: Code(s): N39.0 - Urinary tract infection, site not specified Status: Acute Assessment and Plan: * SEE ABOVE #4 (6) Ureteric calculus: Code(s): N20.1 - Calculus of ureter Status: Acute Assessment and Plan: * Urology was consulted * 6mm Left ureter stone has been present for 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 * Spoke with urologist will treat for UTI no intervention at this time was he does respond to treatment * PO Augmentin x 10 days (7) Constipation: Code(s): K59.00 - Constipation, unspecified Status: Acute Assessment and Plan: * CT Imaging impacted fecal matter highly suggestive of proctitis * Bowel regimen: MiraLax, soapsuds enema, lactulose * BM x1 reported overnight (8) Proctitis: Code(s): K62.89 - Other specified diseases of anus and rectum Status: Acute Assessment and Plan: * On IV antibiotic therapy 3: * doxycycline 7 days L (9) Acute kidney injury superimposed on CKD: Code(s): N17.9 - Acute kidney failure, unspecified; N18.9 - Chronic kidney disease, unspecified Status: Acute Assessment and Plan: * Patient at baseline previous Cr 3.00's * Monitor closely while receiving IV lasix * Avoid nephrotoxic drugs. * Monitor antihypertensive drug therapy. * Avoid NSAIDs. * Routine CMP monitoring GFR. * Monitor electrolytes especially potassium. * Antibiotic doses depending on creatinine clearance. * Pharmacy does medications. * Routine follow-up with Nephrology as an outpatient unless renal function worsens will consult nephrology 05/04: * Cr bumped * Holding lasix (10) Hypertension: Code(s): I10 - Essential (primary) hypertension Status: Acute Assessment and Plan: * Resumed Amlodipine * reviewed BP * Monitor per unit protocol * was hypertensive on arrival but 121/64 today (11) Abdominal aortic aneurysm (AAA): Code(s): I71.40 - Abdominal aortic aneurysm, without rupture, unspecified Status: Acute Assessment and Plan: * Ascending aorta measures 3.6 cm. * monitoring outpatient with vascular (12) Acute on chronic anemia: Code(s): D64.9 - Anemia, unspecified Status: Acute Assessment and Plan: * Normocytic anemia * Hgb 9.3>8.3 * resumed iron supplement * continue to trend * Transfuse PRBC if Hgb <7.0 * No evidence of Acute GIB (13) BPH (benign prostatic hyperplasia): Code(s): N40.0 - Benign prostatic hyperplasia without lower urinary tract symptoms Status: Acute Assessment and Plan: * Resume Proscar and Flomax * Monitor for urinary retention DS: Summary Hospital Course Reason for hospitalization: Metabolic encephalopathy/ UTI left hydronephrosis with ureters stone/ congestive heart failure/ proctitis/ UTI Hospital Course: Patient was a 88 yo M with a mHx signficant for GERD, dyslipidemia, BPH, CAD patient had presented to the ED for the evaluation of worsening confusion per his daughter who he resides with; this has been going on for a few days and the patient is unable to give circumstantial informaton regarding these events. With no known modifying factor, his symptoms are associated with anorexia, an unstable gait, malaise and fatigue. There were no records of vomiting, diarrhea, flank pain, chest pain, falls or skin/joint changes. in the emergency department patient was found to have acute metabolic encephalopathy likely secondary to UTI is also found to proctitis in exacerbation congestive heart failure with bilateral pleural effusions. patient denied any shortness a breath and remained on room air maintaining 96%. 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 patient was admitted to the medical unit and treated for the following diagnosis: (1) Acute metabolic encephalopathy: Patient presented with confusion from reported baseline from family likely secondary to acute infection * ABX Therapy for proctitis and UTI * Improved to baseline (2) Congestive heart failure: * BNP 13196 * Consult cardiology * Troponin 0.061 likely ischemic demand type 2 * IV Lasix b.i.d. received switch to 20 mg PO due to bump in Cr * previous echocardiogram 2022: LVEF 50-55%, grade 1 diastolic dysfunction, severe aortic valve calcification, moderate MR, mild * echocardiogram F/U: severe aortic stenosis normal biventricular systolic function * EKG: SR BBB 76 * chest x-ray: showed bilateral pleural effusion patient discharged on Lasix 20 mg daily will need to follow up with Cardiology and continue to follow-up with Nephrology outpatient to monitor renal function (3) Pleural effusion due to CHF (congestive heart failure): * SEE ABOVE #1 * Continue with IV lasix * Incentive spirometer * On RA stopped lasix switched to PO patient instructed to continue to use incentive spirometer as well as resume a low-sodium diet oral Lasix 20 mg at this time patient remained on room air at 97% denied shortness breath or chest pain during admission (4) Chrissie tropicalis infection: * Urine grew Chrissie Tropicalis * Fluconazole IV * Switch to PO fluconazole x 14 days patient discharged on oral fluconazole for the remainder of his therapy (5) Complicated urinary tract infection: Code(s): N39.0 - Urinary tract infection, site not specified Status: Acute Assessment and Plan: * patient discharged on Augmentin times 10 days to complete antibiotic therapy (6) Ureteric calculus: * Urology was consulted * 6mm Left ureter stone has been present for 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 * Spoke with urologist will treat for UTI no intervention at this time was he does respond to treatment * PO Augmentin x 10 days patient can follow-up outpatient with Urology if family decides for intervention with ureteroscopy, lithotripsy and stent placement this has been a chronic condition since 2022 (7) Constipation: * resolve with bowel regimen (8) Proctitis: * On IV antibiotic therapy received Rocephin Discharged on doxycycline 7 days (9) Acute kidney injury superimposed on CKD: Code(s): N17.9 - Acute kidney failure, unspecified; N18.9 - Chronic kidney disease, unspecified Status: Acute Assessment and Plan: * patient is stage IV CKD CR better than typical baseline * Patient at baseline previous Cr 3.00's * Monitor closely while receiving IV lasix * Avoid nephrotoxic drugs. * Monitor antihypertensive drug therapy. * Avoid NSAIDs. * Routine CMP monitoring GFR. Routine follow-up with Nephrology as an outpatient will need monitoring still be on 20 mg of Lasix p.o. (10) Hypertension: * Resumed Amlodipine * reviewed BP * Monitor per unit protocol * was hypertensive on arrival but 121/64 today patient was discharged back on his amlodipine can continue to follow with primary care physician or Cardiology (11) Abdominal aortic aneurysm (AAA): Code(s): I71.40 - Abdominal aortic aneurysm, without rupture, unspecified Status: Acute Assessment and Plan: * Ascending aorta measures 3.6 cm. monitoring outpatient with vascular and continue with good blood pressure control (12) Acute on chronic anemia: Code(s): D64.9 - Anemia, unspecified Status: Acute Assessment and Plan: * Normocytic anemia * Hgb 9.3>8.3 * resumed iron supplement * continue to trend * Transfuse PRBC if Hgb <7.0 * No evidence of Acute GIB patient discharged back on his iron supplements can continue to follow up otf [facility] care physician (13) BPH (benign prostatic hyperplasia): Code(s): N40.0 - Benign prostatic hyperplasia without lower urinary tract symptoms Status: Acute Assessment and Plan: * Resume Proscar and Flomax follow-up with Urology outpatient Discharge: patient is seen and assessed at discharge in no acute distress denied any new complaints denied any chest pain, shortness a breath urinary symptoms and no difficulty with bowel movements. He had remained on room air during his hospitalization and renal function at baseline. Patient was discharged on Diflucan to treat yeast in urine as well as Augmentin for any underlying urinary tract infection with the left ureter stone. Patient was also treated for constipation and proctitis with bowel regiment and 7 day course of doxycycline he had also received IV Rocephin. Patient was discharged home with his Daughter (caregiver) will plan to follow-up with primary care, cardiology, and nephrology outpatient. Status at Discharge Functional status at discharge: wheelchair bound Overall status at discharge: patient is back to baseline Time Spent with Patient Time attestation: Total time spent providing and/or coordinating discharge services: Time spent: Greater than 30 minutes Exam Narrative: * GENERAL: Alert and oriented x 2. No acute distress. * EYES: EOMI. No scleral icterus. PERRLA. * HEENT: Moist mucous membranes. * LUNGS: Diminished to auscultation bilaterally. No accessory muscle use. * CARDIOVASCULAR: Regular rate and rhythm. murmur. * ABDOMEN: Soft, non tenderness and non-distended. No palpable masses. * EXTREMITIES: 1+ BLE edema. Non-tender * SKIN: No rashes or lesions. Skin warm, dry. * NEUROLOGIC: No focal neurological deficits. DS: Data Data Completed and Pending Labs on day of discharge: Labs from last 24 hours 05/05/24 05/05/24 05/04/24 07:43 05:09 19:15 WBC 5.2 RBC 2.67 L Hgb 8.4 L Hct 26.4 L MCV 98.9 MCH 31.5 MCHC 31.8 L RDW 13.6 Plt Count 102 L MPV 10.5 H Immature Gran % (Auto) 0.6 H Neut % (Auto) 50.5 Lymph % (Auto) 28.2 [place] % (Auto) 13.6 H Eos % (Auto) 6.3 H Baso % (Auto) 0.8 Lymph # (Auto) 1.47 [place] # (Auto) 0.7 H Eos # (Auto) 0.3 Baso # (Auto) 0.0 Abs Immat Gran (auto) 0.03 Absolute Neuts (auto) 2.6 Absolute Nucleated RBC 0.000 Nucleated RBC % 0.0 Sodium 137 Potassium 3.2 L Chloride 102 Carbon Dioxide 25 Anion Gap 10 BUN 36 H Creatinine 2.72 H Estim Creat Clear Calc 18 Estimated GFR 22 L Glucose 98 POC Capillary Glucose 100 99 Calcium 9.4 Total Bilirubin 0.7 AST 15 L ALT 10 Alkaline Phosphatase 66 Total Protein 6.0 L Albumin 3.2 L 05/04/24 05/04/24 17:10 11:55 WBC RBC Hgb Hct MCV MCH MCHC RDW Plt Count MPV Immature Gran % (Auto) Neut % (Auto) Lymph % (Auto) [place] % (Auto) Eos % (Auto) Baso % (Auto) Lymph # (Auto) [place] # (Auto) Eos # (Auto) Baso # (Auto) Abs Immat Gran (auto) Absolute Neuts (auto) Absolute Nucleated RBC Nucleated RBC % Sodium Potassium Chloride Carbon Dioxide Anion Gap BUN Creatinine Estim Creat Clear Calc Estimated GFR Glucose POC Capillary Glucose 104 98 Calcium Total Bilirubin AST ALT Alkaline Phosphatase Total Protein Albumin Preliminary micro results at discharge 05/01/24 17:22 Blood Culture - Preliminary Blood 05/01/24 17:22 Blood Culture - Preliminary Blood Imaging Radiologist's impression: Radiology Results: ITS Impressions Chest X-Ray 05/01/24 18:19 IMPRESSION: No radiopaque foreign bodies. Minimal opacification the left lung base medially. Clinical correlation advised. If clinically warranted CT is advised. Head CT 05/01/24 21:39 IMPRESSION: No acute intracranial findings. Chest/Abdomen/Pelvis CT 05/01/24 22:09 IMPRESSION: CHEST: 1. Bilateral pleural effusion with adjacent atelectatic changes. 2. Minimal pericardial effusion. ABDOMEN/PELVIS: 1. Abdominal aortic aneurysm. 2. Large sliding hiatus hernia. 3. Constipation. 4. Impacted fecal material seen in the rectum with highly suggestive of proctitis. Clinical evaluation advised. 5. Possible Left lower ureteric stone with no hydronephrotic changes. Smaller left kidney than the right. Highly suggestive right kidney stone. 6. Possible gallbladder stones. Ultrasound evaluation advised. Discharge Plan Discharge Attending physician on discharge: Toni Long Consulting providers: Vega Don; Debbie Melendez; Олег Kowalski Discharging Clinician: Debbie Melendez Anticipated Discharge Date/Time: 05/05/24 10:00 Patient Disposition: Home, Self-Care Activity: may shower and as tolerated Diet: heart healthy and low sodium Discharge Instructions: Yeast in the Urine * I have prescribed Diflucan please complete therapy as indicated Ureter stone/UTI * I have prescribed Augmentin antibitoic please complete as indicated * I encourage adequate hydration * If you develop lower back pain and difficulty with urination please seek medical attention * Continue to take your Flomax * Will need follow-up with Urology to schedule a left ureteroscopy, laser lithotripsy and stent placement if this is something you would like done proctitis * I have prescribed doxycycline please take as prescribed congestive heart failure * I have prescribed a low-dose Lasix which is a diuretic this may increase urinary output will need to monitor your kidney function closely and have follow-up with Nephrology as well as Cardiology * the ultrasound of your heart did show severe aortic stenosis this is something to continue to follow with Cardiology outpatient * I recommend to continue to weigh yourself weekly there is a significant weight gain or you develop shortness a breath seek medical attention for concerns congestive heart failure exacerbation aortic aneurysm 3.6 cm * follow-up with vascular services for monitoring Chronic Kidney Disease * You have been started on Lasix for congestive heart failure you will need close monitor of your kidney function * please continue regular follow-ups with your nephorologist How can you care for yourself at home? ? Keep track of any new symptoms or changes in your symptoms. ? Rest until you feel better. ? Be safe with medicines. Take your medicines exactly as prescribed. Call your doctor if you think you are having a problem with your medicine. ? Do not drive after taking a prescription pain medicine. ? Ensure to follow-up with primary care physician as indicated and provide updated medication list provided to you at discharge. When should you call for help? Call 911 anytime you think you may need emergency care. For example, call if: ? You passed out (lost consciousness). Call your doctor now or seek immediate medical care if: ? You have new symptoms like fever, difficulty breathing, Chest pain, vomiting, or rash. ? You have new or different pain. ? You are confused and are having trouble thinking clearly. ? Your symptoms are getting worse. Watch closely for changes in your health, and be sure to contact your doctor if: ? You do not get better as expected. Patient Instructions: Antibiotic Form Patient Language: Turkish Stand Alone Forms: General Discharge Information Follow-up/Referrals: Vega Don MD [Physician] - Call for Appointment (Call office for appointment with first available urologist at [facility] to discuss need for stone treatment) Dayron Bianchi MD [Physician] - Clement Busch MD [Physician] - 2 Weeks Discharge Medications: New amoxicillin-pot clavulanate 875-125 mg tablet 1 tablet PO Q12H Qty: 12 0RF sennosides-docusate sodium [Senokot-S] 8.6-50 mg Tablet 1 tab-cap PO HS Qty: 30 0RF fluconazole [Diflucan] 100 mg Tablet 200 mg PO QAM Qty: 25 0RF doxycycline hyclate 100 mg Tablet 100 mg PO Q12HR Qty: 11 0RF furosemide [Lasix] 20 mg tablet 20 mg PO DAILY Qty: 30 0RF Continued finasteride 5 mg tablet 5 mg PO DAILY Qty: 30 0RF pravastatin 40 mg tablet 40 mg PO HS tamsulosin 0.4 mg capsule 0.4 mg PO BID sodium bicarbonate 650 mg tablet 650 mg PO BID ferrous sulfate 325 mg (65 mg iron) Tablet 325 mg PO DAILY escitalopram oxalate 10 mg tablet 10 mg PO HS aspirin 81 mg tablet 81 mg PO DAILY amlodipine [Norvasc] 5 mg tablet 5 mg PO DAILY hydrocodone-acetaminophen 5-325 mg tablet 1 tablet PO Q12H pantoprazole 40 mg Tablet,Delayed Release (Dr/Ec) 40 mg PO DAILY polyethylene glycol 3350 [Miralax] 17 gram Powder In Packet 17 g PO QAM Qty: 30 0RF Discontinued Jardiance 10 mg tablet 10 mg PO DAILY Date of admission: 05/01/24 23:54 Primary Care Provider: Miguel Ángel Vigil Admitting Provider: Morteza Alarcon Attending physician on admission: Morteza Alarcon Condition: Stable Quality VTE Prophylaxis VTE prophylaxis: pharmacologic ordered -Patient's previous records reviewed on admission -ER notes reviewed in detail on admission -discussed all findings and current treatment plan with patient/Family/POA -Consultations reviewed for recommendations -Patient's disposition for safe discharge discussed with egg caser Dictation performed by [employer] direct speech recognition software, t herefore cigar head stringer variants and typographical errors may occur. Hospitalist MIPS Heart Failure (Exclusion) Patient has history of Heart Transplant or Left Ventricular Assistive Device?: No IF YES, STOP HERE Heart Failure (Qualifier) Patient has current or prior documentation of LVEF less than or equal to 40%, or mod/servere depressed LVSF?: No IF NO, STOP HERE
--- NOTE | 2024-05-05 10:32 | PCPTNOTE ---
Per OT note patient does not ambulate and is at baseline.
[2024-05-05 11:27] LABS: Glucose Point of Care 109 mg/dl (65-105)
[2024-05-05 12:25] VITALS: PULSE 74
[2024-05-05 14:00] VITALS: BP 150/84; PULSE 80; RESP 18; TEMP 36.2; O2SAT 99
[2024-05-12 14:56] LABS: Troponin I 0.061 ng/mL (0.000-0.034)
[2024-05-12 15:05] LABS: Troponin I 0.061 ng/mL (0.000-0.034)
== END 2024-05-05 17:22 | disposition home or self-care (01) | DRG 280 ==
LOC: ANHED 14:46 → ANH3MEDSUR 05-02 02:07 → ANH2MED 05-04 14:22 → ANH3MEDSUR 05-07 12:54
PROVIDERS: Admitting Provider Internal Medicine; Emergency Provider Emergency Medicine; PCP Internal Medicine; Visit Provider Nurse Practitioner Family
DX: I50.33 Acute on chronic diastolic (congestive) heart failure (principal); G93.41 Metabolic encephalopathy; I21.4 Non-ST elevation (NSTEMI) myocardial infarction; B37.49 Other urogenital candidiasis; N20.1 Calculus of ureter; N17.9 Acute kidney failure, unspecified; N18.9 Chronic kidney disease, unspecified; I71.40 Abdominal aortic aneurysm, without rupture, unspecified; I25.10 Atherosclerotic heart disease of native coronary artery without angina pectoris; D64.9 Anemia, unspecified; E78.5 Hyperlipidemia, unspecified; K59.00 Constipation, unspecified; K62.89 Other specified diseases of anus and rectum; K21.9 Gastro-esophageal reflux disease without esophagitis; N40.0 Benign prostatic hyperplasia without lower urinary tract symptoms; F03.90 Unspecified dementia, unspecified severity, without behavioral disturbance, psychotic disturbance, mood disturbance, and anxiety; Z20.822 Contact with and (suspected) exposure to COVID-19
CPT/HCPCS: 36415; 36600; 70450; 71045; 71250; 74176; 80053; 80143; 80179; 80307; 81001; 82077; 82550; 82805; 82948; 83605; 83690; 83735; 83880; 84100; 84439; 84443; 84480; 84484; 85018; 85025; 85055; 85610; 85730; 87040; 87086; 87637; 93005; 96365; 96367; 96375; 99285; A9270; C8929; J0696; J1450; J1644; J1940; J2185; Q9957

== ENCOUNTER 2024-05-19 13:05 | Inpatient (IN) | payer MEDICARE, SELFPAY ==
--- NOTE | ~2024-05-19 | XR_ITS ---
XR chest 1V Ordering provider: Emery Álvarez MD History: 88 years Male with . AMS . Comparison: May 01, 2024 FINDINGS: MEDIASTINUM: The cardiac silhouette is moderately enlarged. Prominent michelle. Opacity in the inferior m ediastinum which may indicate sliding hiatus hernia. LUNGS: No infiltrates, effusions or pneumothorax. Prominent markings in the lower lobes. Nodules in t he right upper lobe unchanged from previous examination. OTHER: No free air under the diaphragm. IMPRESSION: Cardiomegaly with prominent michelle. Possible sliding hiatus hernia. Bibasilar prominent markings which may indicate bronchitis. Reviewed, dictated and finalized at location A.
--- NOTE | ~2024-05-19 | MR_ITS ---
MR brain/brain stem wo con Ordering provider: Galilea Ogden APRN History: 88 years Male with . AMS . Comparison: May 19, 2024 Technique: MRI brain was performed without contrast. FINDINGS: BONES: Normal. CRANIOCERVICAL JUNCTION: normal. PITUITARY: Normal. MAJOR INTRACRANIAL VESSELS: Normal flow void. OPTIC NERVES AND CRANIAL NERVES VII AND VIII COMPLEXES: Grossly normal. BRAIN PARENCHYMA AND CSF SPACES: Mild nonspecific T2 white matter hyperintensities are seen in a karlo ateral periventricular and deep white matter distribution which are likely related to chronic ischemi c small vessel disease. Mild diffuse cortical atrophy. Old infarct in the left anterior cerebral art sherri distribution with encephalomalacia is again demonstrated. FLAIR and T2 weighted images shows slig htly bright signal in the jana with no effusion restriction. the brainstem and cerebellum are otherwi se normal. No acute or chronic intracranial hemorrhage. No extra axial fluid collections. Diffusion w eighted and ADC mapping images reveal no recent ischemia. No midline shift or mass effect. PARANASAL SINUSES: Normal. Right nasal septal deviation. MASTOIDS: Normal SUPERFICIAL/SURROUNDING SOFT TISSUES: Normal. IMPRESSION: Brain atrophy with deep white matter ischemic changes. 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 Bright signal in the jana most likely due to small vessel ischemic changes. Wallerian degeneration cannot be excluded. Reviewed, dictated and finalized at location A. IMPRESSION: Brain atrophy with deep white matter ischemic changes. 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 Bright signal in the jana most likely due to small vessel ischemic changes. Wallerian degeneration cannot be excluded.
--- NOTE | ~2024-05-19 | CT_ITS ---
CT head without contrast Indication: Altered mental status COMPARISON: 05/01/2024 Technique: Serial scans were obtained through the brain without the administration of contrast. Dose reduction technique was used on this scan by utilizing automated exposure control and iterative recon struction technique. The dose-length product (DLP) was 681.00 mGy-cm. Findings: There is no evidence of intracranial hemorrhage, mass lesion, or acute infarct. 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 The ventricles and subarachnoid spaces are dilated, consistent with moderate atrophy. Low attenuation regions are seen within the perivent ricular white matter bilaterally, likely representing changes from chronic microvascular ischemic dis ease. There is no evidence of edema, mass effect or midline shift. The visualized paranasal sinuses and mastoid air cells are clear. Left frontoparietal craniotomy unchanged. Impression: No intracranial hemorrhage, mass, or acute infarct. 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 Atrophy and chronic white matter changes, as above. Reviewed, dictated and finalized at [facility]. Impression: No intracranial hemorrhage, mass, or acute infarct. 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 Atrophy and chronic white matter changes, as above.
[2024-05-19 13:01] VITALS: BP 139/77; PULSE 79; RESP 18; TEMP 36.6; O2SAT 100
--- NOTE | 2024-05-19 13:42 | PC.NURSE ---
Vascular access called for assist with IV.
[2024-05-19 14:23] LABS: Basophils Absolute Auto 0.1 K/mm3 (0.0-0.1); Eosinophils Absolute Auto 0.3 K/mm3 (0-0.3); Eosinophils Percent Auto 5.9 % (0-4.4); Hematocrit 28.1 % (42.0-52.0); Hemoglobin 9.1 g/dL (14.0-18.0); Immature Granulocyte Absolute 0.01 K/mm3 (0.00-0.031); Immature Granulocyte Percent A 0.2 % (0-0.5); Immature Platelet Fraction Pct 3.6 % (0.9-11.2); Lymphocytes Absolute Auto 1.08 K/mm3 (0.9-3.2); Lymphocytes Percent Auto 20.7 % (18.3-44.2); Mean Corpuscular HGB Conc 32.4 g/dl (32-36); Mean Corpuscular Volume 98.9 fl (80-100); Mean Platelet Volume 10.5 fl (7.4-10.4); Monocytes Absolute Auto 0.5 K/mm3 (0.1-0.6); Monocytes Percent Auto 8.6 % (2.6-8.5); Neutrophils Absolute Auto 3.3 K/mm3 (1.3-6.7); Neutrophils Percent Auto 63.6 % (45.5-73.1); Platelet Count Result 124 k/mm3 (150-375); Red Blood Count 2.84 M/mm3 (4.6-6.20); Red Cell Distribution Width 13.4 % (11.5-14.5); White Blood Count 5.2 K/mm3 (4.5-10.0)
[2024-05-19 14:32] LABS: Alanine Aminotransferase 10 U/L (6-50); Albumin Level 3.5 g/dL (3.5-5.1); Alkaline Phosphatase 87 U/L (38-126); Anion Gap 9 mmol/L (4-12); Aspartate Amino Transferase 19 U/L (17-59); Bilirubin,Total 0.4 mg/dL (0.2-1.3); Blood Urea Nitrogen 30 mg/dL (9-20); Calcium 9.8 mg/dL (8.4-10.2); Carbon Dioxide 27 mmol/L (22-30); Chloride 104 mmol/L (98-107); Estimated CRCL calculation 20 ml/min; Estimated Glomerular Filt Rate 26; Glucose 98 mg/dL (65-110); INR 1.1; Potassium 3.5 mmol/L (3.4-5.0); Prothrombin Time 14.2 Seconds (11.1-14.7); Sodium 140 mmol/L (137-145)
[2024-05-19 14:33] LABS: Partial Thromboplastin Time 26.2 Seconds (22.3-36.8)
[2024-05-19 15:03] LABS: Add Urine Microscopic? YES; Appearance Urine Turbid (Clear); Bacteria Urine None Seen /hpf; Bilirubin Urine Negative (Negative); Blood Urine 1+ (Negative); Budding Yeast Urine Present /hpf; Color Urine Yellow (Yellow); Glucose Urine UA Negative (Negative); Ketones Urine Negative (Negative); Leukocyte Esterase Ur 3+ LEU/UL (Negative); Need Manual Microscopic Reviewed; Nitrate Urine Negative (Negative); Protein Urine 1+ mg/dL (Negative); RBC Urine 0-2 /hpf (0-2); Specific Grav Ur 1.012 (1.001-1.035); Squamous Epithelial Cell Urine Occasional /hpf (Few); Urobilinogen Urine 0.2 mg/dL (<2.0); WBC Urine >100 /hpf (0-3); pH Urine 5.5 (5.0-9.0)
[2024-05-19 15:15] LABS: Influenza A QL RT-PCR Negative (Negative); Influenza B QL RT-PCR Negative (Negative); RSV RNA, RT-PCR Negative (Negative); SARS-CoV-2 RNA PCR Negative (Negative)
--- OUTSIDE RECORDS SUMMARY | 2024-05-19 15:15 | XMS_ITS | Patient Health Record ---
Author Organization [facility] Address [address] [place] [address] Care Team Providers Care Core Shaper Name Role Phone Miguel Ángel Vigil Primary Care Provider [phone], [place] Unavailable [phone] Allergies No Known Allergies Reason For Referral No Information Medications Medication SIG (Take, Route, Frequency, Duration) Notes Start Date End Date Status DuoDerm Signal Dressing - apply to presacral area Externally every two days for 30 days 04/27/2024 Active Misc. Devices - LIVE BAG EXTERNALLY DAILY Active Misc. 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) Active confirmed Problem Hypertension (51361978) Hypertension (I10) 05/22/19 24 Active confirmed Problem 13343868 Heart murmur (R01.1) Active confirmed Problem 77536823 Chronic fatigue (R53.82) Active confirmed Problem Bed sore on buttock (L89.309) Active confirmed Problem 69650584 Hyperlipidemia, unspecified hyperlipidemia type (E78.5) Active confirmed Problem 637908032 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) Active confirmed Problem 992151668 Iron deficiency anemia due to chronic blood loss (D50.0) Active confirmed Problem 128264031 Urinary incontinence, unspecified type (R32) Active confirmed Problem 757333457 Benign prostatic hyperplasia with lower urinary tract symptoms (N40.1) Active confirmed Problem 82230339 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, 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) 06/28/19 Active confirmed Problem 08270881 Incontinence of feces, unspecified fecal incontinence type (R15.9) Active confirmed Problem 774153075 Chronic kidney disease, unspecified CKD stage (N18.9) Active confirmed Problem 11898025 Completed stroke (I63.9) 06/28/19 Active confirmed Problem Osteoarthritis (598603774) 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) Active confirmed Problem 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, without long-term current use of insulin, unspecified CKD stage (E11.22) 06/30/19 Active confirmed Problem 10622331 Gait disorder (R26.9) Active confirmed Problem 142201588 Right hemiparesi s (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.91) Active confirmed Problem 138191918 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 confirmed Vital Signs Blood pressure diastolic 70 [facility] TODAY mm Hg Blood pressure systolic 130 mm Hg 05/22/2023 Encounters Encounter Location Date Provider Diagnosis [address] [place] [address] 05/22/2023 Miguel Ángel Vigil Fecal impaction of colon K56.41 and Hypertension I10 [address] [place] [address] 06/13/2023 Miguel Ángel Vigil 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, without long-term current use of insulin E11.59 ; Hypertension I10 ; Chronic kidney disease, unspecified CKD stage N18.9 and Paroxysmal atrial fibrillation I48.[address] [place] [address] 02/04/2024 Miguel Ángel Vigil Osteoarthritis involving multiple [...] R15.9 and Urinary incontinence, unspecified type R32 [address] [address] 04/27/2024 Miguel Ángel Vigil Bed sore on buttock L89.[address] [address] 05/23/2023 Miguel Ángel Vigil [address] [address] 06/21/2023 Miguel Ángel Vigil [address] [address] 06/26/2023 Miguel Ángel Vigil [address] [address] 07/31/2023 Miguel Ángel Vigil Diarrhea R19.[address] [address] 08/09/2023 Miguel Ángel Vigil Osteoarthritis involving multiple joints on both sides of body M15.[address] [address] 08/23/2023 Miguel Ángel Vigil [address] [address] 10/10/2023 Miguel Ángel Vigil [address] [address] 10/16/2023 Miguel Ángel Vigil Osteoarthritis involving multiple joints on both sides of body M15.[address] [address] 11/12/2023 Miguel Ángel Vigil [address] [address] 12/02/2023 Miguel Ángel Vigil [address] [place] [address] 12/12/2023 Miguel Ángel Vigil [address] [place] [address] 12/20/2023 Miguel Ángel Vigil [address] [place] [address] 12/23/2023 Miguel Ángel Vigil Osteoarthritis involving multiple joints on both sides of body M15.[address] [address] 12/25/2023 Miguel Ángel Vigil [facility] [address] [place] [address] 01/15/2024 Miguel Ángel Vigil [facility] [address] [place] [address] 01/23/2024 Miguel Ángel Vigil [address] [address] 04/09/2024 Miguel Ángel Vigil Osteoarthritis involving multiple joints on both sides of body M15.[address] [address] 04/22/2024 Miguel Ángel Vigil [address] [address] 04/30/2024 Miguel Ángel Vigil Assessments Encounter Date Diagnosis (ICD Code) Assessment Notes Treatment Notes Treatment Clinical Notes Section Notes 04/27/2024 Bed sore on buttock (ICD-10 - L89.309) REPOSITION EVERY TWO HOURS TO KEEP PRESSURE OFF SORE. 05/22/2023 Hypertension (ICD-10 - I10) 05/22/2023 Fecal impaction of colon (ICD-10 - K56.41) DISCUSSED LAXATIVE REGIMEN. USE BISACODYL 5 MG BID, SENNA 8.6MG 2 BID, MIRALAX 17GM BID UNTIL BOWELS MOVE, THEN DECREASE TO DAILY. MAY INCREASE TO BID NEEDED. DISCUSSED ADEQUATE WATER AND FIBER INTAKE. 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, without long-term current use of insulin (ICD-10 - E11.59) 02/04/2024 Hypertension (ICD-10 - I10) 02/04/2024 Osteoarthritis involving multiple joints on both sides of body (ICD-10 - M15.9) 04/09/2024 Osteoarthritis involving multiple joints on both sides of body (ICD-10 - M15.9) 02/04/2024 Completed stroke (ICD-10 - I63.9) 06/13/2023 Chronic kidney disease, unspecified CKD stage (ICD-10 - N18.9) 06/13/2023 Paroxysmal atrial fibrillation (ICD-10 - I48.0) 02/04/2024 Right hemiparesis (ICD-10 - G81.91) 02/04/2024 Paroxysmal atrial fibrillation (ICD-10 - I48.0) 02/04/2024 Chronic kidney disease, unspecified CKD stage (ICD-10 - N18.9) 02/04/2024 Benign prostatic hyperplasia with lower urinary tract symptoms (ICD-10 - N40.1) 02/04/2024 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 CONTINUE HOME HEALTH PT/OT, RN Plan Of Treatment Future Test Test Name [...] Date MEDICARE PART A [address] [place] [address] [id number] Karl Thompson Self - patient is the insured 2 [facility] [address] [place] [address] [phone] [id number] Karl Thompson Self - patient is the insured 3 Medical (General) History Surgical History Surgery Date(Month/Year) Hospitalization History Reason Date(Month/Year) UTI 04/2024 uti 01/2024 Blood transfusion 06/2022
--- OUTSIDE RECORDS SUMMARY | 2024-05-19 15:15 | XMS_ITS | Clinical Summary ---
Author Organization [facility] Address [address] [place] [address] Care Team Providers Care Mining Speculator Name Role Phone Miguel Ángel Vigil MD Primary Care Provider [phone] Social History Tobacco Use Types Packs/Day Years [...] MRSA 05/07/2023 05/07/2023 Insurance MEDICARE Care Teams Mining Speculator Relationship Specialty Start Date End Date Miguel Ángel Vigil MD [address] [address] PCP - General INTERNAL MEDICINE 03/05/23
--- OUTSIDE RECORDS SUMMARY | 2024-05-19 15:15 | XMS_ITS | Clinical Summary ---
Author Organization [facility] [employer] Address [address] [place] [address] Care Team Providers Care Patient Account Liaison Name Role Phone Rambo Bradford MD Primary Care Provider [phone] Source Comments [facility] [employer],non-owned Affiliates and Associated Physician Practices is amultiple site organization consisting of ambulatory clinics and hospital sitesin [place], [place], [place] and [place]. This disclosure is being madepursuant to the Care Everywhere program and may not contain all information available regarding this patient. Last updated 17.[facility] [employer] Allergies No known active allergies Medications * [...] - 1-dose 75+ series) 07/24/2011 COVID-19 VACCINE (2023-2 5 season) 2023 INFLUENZA VACCINE (#1) 2023 DEPRESSION SCREENING 03/04/2024 HEPATITIS B VACCINE Aged Out No longe r eligible based on patient's age to complete this topic HIB VACCINE Aged Out No longer eligi ble based on patient's age to complete this topic HPV VACCINE Aged Out No longer eligi ble based on patient's age to complete this topic MENINGOCOCCAL (Group B) VACC INE SHARED DECISION-MAKING Aged Out No longer eligibl e based on patient's age to complete this topic MENINGOCOCCAL GROUPS A/C/Y/W VACCINE Aged Out No longer eligible b ased on patient's age to complete this topic Care Teams Patient Account Liaison Relationship Specialty [place] [address] [place] [address] [address] [place] [address] PCP - General Internal Medicine 01/05/17
--- OUTSIDE RECORDS SUMMARY | 2024-05-19 15:16 | XMS_ITS | Referral Summary ---
Author Organization [facility] Address [address] [place] [address] Phone Care Team Providers Care Nurse Aide Evaluator Name Role Phone Miguel Ángel Vigil MD Primary Care Provider [phone] Encounters Date Type Department Care Team Description 04/15/2024 SHOP/CHAP Initial Outreach [facility] OP CASE MANAGEMENT [address] [place] [address] Doris Shahid, RN 04/13/2024 SHOP/CHAP Initial Outreach [facility] OP CASE MANAGEMENT [address] [place] [address] Doris Shahid, RN 04/10/2024 SHOP/CHAP Initial Outreach [facility] OP CASE MANAGEMENT [address] [place] [address] Doris Shahid, RN 04/10/2024 SHOP/CHAP Initial Eligibility Review [facility] OP CASE MANAGEMENT [address] [place] [address] Doris Shahid, RN 04/06/2024 4:04 PM FOREIGN AGENT - 04/09/2024 7:04 PM FOREIGN AGENT Hospital Encounter [address] [address] Becka Kearney MD Ma, MD Rosalinda Dubon, MD Melody Womack, Johan Barron MD Altered mental status, unspecified altered mental status type (Primary Dx); Acute cystitis without hematuria; Hallucinations; Vascular dementia, unspecified dementia severity, unspecified whether behavioral, psychotic, or mood disturbance or anxiety ([facility]) Discharge Disposition: Discharge to home, home health skilled care 03/31/2024 12:59 PM FOREIGN AGENT - 04/01/2024 7:11 PM [facility] Emergency [facility] Emergency Department [address] [place] [address] Stephen Cheng MD Cohn, MD Chelsey Aguayo, [...] total) by mouth nightly 30 tablet 11 12/02/2023 12/02/19 25 Active aspirin 81 mg enteric coated tablet Take 1 tablet (81 mg total) by mouth daily 30 tablet 12/02/2023 Active escitalopram (LEXAPRO) 10 mg tablet Take 1 tablet (10 mg total) by mouth nightly 30 tablet 12/02/[address] (PROTONIX) 40 mg EC tablet Take 1 tablet (40 mg total) by mouth daily 30 tablet 12/02/2023 Active finasteride (PROSCAR) 5 mg tablet Take 1 tablet (5 mg total) by mouth daily 30 tablet 12/02/2023 Active tamsulosin (FLOMAX) 0.4 mg extended release capsule Take 2 capsules (0.8 mg total) by mouth daily with dinner 60 capsule 01/24/2024 Active amLODIPine (NORVASC) 10 mg tablet Take 0.5 tablets (5 mg total) by mouth daily 04/09/2024 Active carvediloL (COREG) 6.25 mg tablet Take 1 tablet (6.25 mg total) by mouth 2 (two) times a day with meals 04/09/2024 Active Active Problems Problem Noted Date Diagnosed Date [...] intracranial abnormality. XR pelvis without fracture. - PT/OT/GRAVE CLEANER consults. Recommend SNF. Family declined, plan home [...] AM CDT): replaced Fecal impaction of colon 05/16/2023 Assessment & Plan (05/20/2023 10:50 AM CDT): Normal TSH. Resolved, continue MiraLax and bisacodyl Abdominal aortic aneurysm (A AA) 3.0 cm to 5.5 cm in diameter in male 05/16/2023 Overview (05/16/2023): Infrarenal abdominal aortic aneurysm measuring up to 3.6 cm Gastrointestinal intolerance to foods 03/20/2023 Assessment & Plan (03/22/2023 12:46 PM FOREIGN AGENT): Patient presents with ~2.5 weeks of acutely [...] from a vascular origin, given CVA in 2014 and hematoma seen on prior CTHs. Pt [...] precautions Assessment & Plan (03/21/2023 11:44 AM FOREIGN AGENT): Per notes, A&Ox1-2 at baseline; seems to be at chronic baseline currently - Delirium precautions, high risk Poor short-term memory 11/16/2020 Acute renal failure superimp osed on stage 4 chronic kidney disease 11/16/2020 Assessment & Plan (07/08/2023 10:42 AM [...] 2.8-3.0. He does not follow with a local sales manager. Kidney imaging 05/16/23 CT AP WO Contrast showed nonobstructive bilateral renal calculi and distal left ureteral calculus. No hydronephrosis. Proteinuria 03/21/2023: Albumin Creatinine Ratio, Ur 83 CKD/ESRD regimen: sodium bicarb 650 BID Assessment & Plan (03/21/2023 8:41 AM FOREIGN AGENT): Renal function stable / improved from prior. -CTM volume status, renal function -Avoid renal toxins, renally dose meds Hematochezia 11/16/2020 Dyslipidemia 11/16/2020 Assessment & Plan (05/16/2023 11:36 PM CDT): Home med: pravastatin 40 mg daily. -continue pravastatin Assessment & Plan (03/21/2023 11:43 AM FOREIGN AGENT): - continue home pravastatin Depressive disorder 11/16/2020 Assessment & Plan (09/24/2023 1:13 AM CDT): - continue home lexapro Assessment & Plan (05/16/2023 11:37 PM CDT): Home med: escitalopram 10 mg daily. -continue escitalopram Assessment & Plan (03/21/2023 11:43 AM FOREIGN AGENT): - continue home lexapro Abnormal international normal [...] Ceftriaxone Assessment & Plan (03/21/2023 12:36 PM FOREIGN AGENT): Patient with reported history of frequent / [...] although unstable. Lives with granddaughter, who is health care attorney. Old infarct in the left HARLEY territory and additional small cortical infarcts in the high left perirolandic cortex. Mild periventricular and pontine white matter changes nonspecific but likely related to chronic small vessel disease. Punctate microhemorrhage in the left subinsular white matter. - Continue aspirin, pravastatin - plan home at discharge, Granddaughter (Teri Luke) full time paramedic orthopaedic doctor - patient already w/HH and 24hr care in [address] Assessment & Plan (06/20/2023 4:53 PM CDT): Baseline of A&Ox2 but able to follow conversations, able to ambulate without walker, although unstable. Lives with granddaughter, who is health care attorney. -PT/OT consult Personal history of nicotine dependence 02/24/20 15 Hemiparesis 02/23/2015 DM (diabetes mellitus) 02/15/2015 Assessment & [...] 5.7. Assessment & Plan (03/21/2023 11:40 AM FOREIGN AGENT): No longer on meds, currently diet-controlled with last A1c 5.7% - Trend glucose with routine labs as indicated. Atrial fibrillation 02/15/2015 Assessment & Plan (09/24/2023 2:06 PM CDT): Not on AC given fall risk. - coreg resumed at 3.125, hold if heart rate <50 - monitor on telemetry Assessment & Plan (07/08/2023 10:41 AM CDT): At home on carvedilol 6.25mg BID. - Not on AC, high fall risk - resumed carvedilol 07/04, HR well controlled. Assessment & Plan (06/22/2023 11:38 AM CDT): Home: Carvediol 25mg, no AC -reduce Coreg dose due to bradycardia Assessment & Plan (05/18/2023 9:54 AM CDT): Not on AC, NSR w/ RBBB on ED EKG. Continue Coreg Assessment & Plan (03/21/2023 11:41 AM FOREIGN AGENT): Not on AC, NSR w/ RBBB on [...] tamsulosin Assessment & Plan (03/21/2023 11:43 AM FOREIGN AGENT): - continue home tamsulosin (allergy listed as [...] protonix Assessment & Plan (03/20/2023 8:30 PM FOREIGN AGENT): -PPI Insomnia 04/01/2010 Generalized anxiety disorder 05/17/2009 Occlusion and stenosis of bilateral carotid roz vignesh 10/29/2008 Resolved Problems Problem Noted Date Diagnosed Date Resolved Date Aspiration into lower respiratory tract 07/02/2023 07/04/2023 Assessment & Plan (07/03/2023 3:46 PM CDT): CXR from admit with bilateral opacities L>R concerning for aspiration vs atelectasis. Denies cough, difficulty swallowing. 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 - Continue home metoprolol Cerebrovascular accident (CVA) 05/17/2009 11/16/2020 Obstructive sleep apnea 11/25/200806/02 Assessment & Plan (06/20/2023 4:46 PM CDT): -CPAP at night Immunizations Immunization Administration Dates Next Due H1N1 Inj Preservative Free 02/15/2009 INFLUENZA [id number] 12/02/2013 Influenza, Quadrivalent, Hig h Dose, Preservative [...] Tobacco: Never Tobacco Cessation:Counseling Given: Not Answered [facility] Utilities Answer Date Recorded In the past 12 months has Walk-in Appointment Scheduler, [employer], or water [employer] threatened to shut off services in your [...] often do you attend chur ch or judaism services? Never 04/08/2024 Do you belong to any clubs o r organizations such as sabianist groups, unions, fraternal or athletic groups, or [...] staff should administer the PHQ-9) 0 01/24/2024 [facility] - Occupational Stress Questionnaire Answer Date Recorded [...] place to sleep or slept in a fpc (including now)? No 06/28/2023 Housing Stability Vital Sign Answer Marquis e Recorded In the last 12 months, was t here a time when you were not able to pay the mortgage or rent on time? No 04/08/2024 In the past 12 months, how m any times have you moved where you were living? 0 04/08/2024 At any time in the past 12 m [facility], were you homeless or living in a fpc (including now)? No 04/08/2024 Personal Safety Answer Date Recorded Have you ever been in or are you currently in a harmful physical or emotional relationship or is someone making you feel afraid or unsafe? Denies 04/07/2024 Sex and Gender Information Value Date Recorded Sex Assigned at Not on file Legal Sex Male 5:18 AM FOREIGN AGENT Gender Identity Not on file Sexual Orientation Not on file Last Filed Vital Signs Vital Sign Reading Time Taken Comments Blood Pressure 128/68 04/09/2024 5:52 PM FOREIGN AGENT Pulse 65 04/09/2024 5:52 PM FOREIGN AGENT Temperature 36.7 C (98.1 F) 04/09/2024 5:52 PM FOREIGN AGENT Respiratory Rate 18 04/09/2024 5:52 PM FOREIGN AGENT Oxygen Saturation 100% 04/09/2024 5:52 PM FOREIGN AGENT Inhaled Oxygen Concentration - - Weight 73.4 kg (161 lb 13.1 oz) 04/07/2024 8:18 PM FOREIGN AGENT Height 182.9 cm (6' 0.01) 04/07/2024 7:15 PM CS T Body Mass Index 21.94 04/07/2024 7:15 PM FOREIGN AGENT Plan of Treatment Not on file Procedures Procedure Name Priority Date/Time Associated Diagnosis Comments POCT GLUCOSE DEVICE Routine 04/09/2024 4 :27 PM FOREIGN AGENT POCT GLUCOSE DEVICE Routine 04/09/2024 1 1:21 AM FOREIGN AGENT EGFR Timed 04/09/2024 10:36 AM FOREIGN AGENT BASIC METABOLIC PANEL Timed 04/09/2024 10:36 AM FOREIGN AGENT POCT GLUCOSE DEVICE Routine 04/09/2024 7 :19 AM FOREIGN AGENT POCT GLUCOSE DEVICE Routine 04/09/2024 4 :37 AM FOREIGN AGENT POCT GLUCOSE DEVICE Routine 04/09/2024 1 :01 AM FOREIGN AGENT EGFR Routine 04/08/2024 11:11 PM FOREIGN AGENT DIFFERENTIAL AUTO Routine 04/08/2024 11: 11 PM FOREIGN AGENT CBC WITH AUTO DIFFERENTIAL Routine 04/08/2024 11:11 PM FOREIGN AGENT BASIC METABOLIC PANEL Routine 04/08/2024 11:11 PM FOREIGN AGENT POCT GLUCOSE DEVICE Routine 04/08/2024 8 :13 PM FOREIGN AGENT POCT GLUCOSE DEVICE Routine 04/08/2024 4 :39 PM FOREIGN AGENT POCT GLUCOSE DEVICE Routine 04/08/2024 1 1:34 AM FOREIGN AGENT GRAVE CLEANER EVALUATE AND TREAT Routine 04/08/2024 10:47 AM FOREIGN AGENT POCT GLUCOSE DEVICE Routine 04/08/2024 7 :11 AM FOREIGN AGENT POCT GLUCOSE DEVICE Routine 04/08/2024 5 :04 AM FOREIGN AGENT POCT GLUCOSE DEVICE Routine 04/08/2024 1 :46 AM FOREIGN AGENT EGFR Routine 04/07/2024 11:19 PM FOREIGN AGENT DIFFERENTIAL AUTO Timed 04/07/2024 11: 19 PM FOREIGN AGENT CBC WITH AUTO DIFFERENTIAL Timed 04/07/2024 11:19 PM FOREIGN AGENT PHOSPHORUS Timed 04/07/2024 11:19 PM FOREIGN AGENT MAGNESIUM Timed 04/07/2024 11:19 PM FOREIGN AGENT BASIC METABOLIC PANEL Routine 04/07/2024 11:19 PM FOREIGN AGENT POCT GLUCOSE DEVICE Routine 04/07/2024 7 :43 PM FOREIGN AGENT EGFR Timed 04/07/2024 6:21 PM FOREIGN AGENT COMPREHENSIVE METABOLIC PANEL Timed 04/07/2024 6:21 PM FOREIGN AGENT CBC WITHOUT DIFFERENTIAL Timed 04/07/2024 6:21 PM FOREIGN AGENT POCT GLUCOSE DEVICE Routine 04/07/2024 2 :11 PM FOREIGN AGENT US KIDNEY COMPLETE IP Routine 04/07/2024 11 :28 AM FOREIGN AGENT POCT GLUCOSE DEVICE Routine 04/07/2024 8 :12 AM FOREIGN AGENT POCT GLUCOSE DEVICE Routine 04/07/2024 4 :56 AM FOREIGN AGENT URINALYSIS, MICROSCOPIC ONLY STAT 04/06/2024 9:03 PM FOREIGN AGENT URINE CULTURE STAT 04/06/2024 9:03 PM FOREIGN AGENT URINALYSIS AND REFLEX TO MICROSCOPIC AND CULTURE STAT 04/06/2024 9:03 PM FOREIGN AGENT XR CHEST 1 VIEW ED 04/06/2024 7:58 PM FOREIGN AGENT ECG 12-LEAD Routine 04/06/2024 7:35 PM FOREIGN AGENT RESPIRATORY PATHOGEN PANEL Routine 04/06/2024 7:08 PM FOREIGN AGENT POCT GLUCOSE DEVICE Routine 04/06/2024 6 :[address] HEAD WO CONTRAST ED 04/06/2024 5 :34 PM FOREIGN AGENT EGFR STAT 04/06/2024 5:14 PM FOREIGN AGENT DIFFERENTIAL AUTO STAT 04/06/2024 5:1 4 PM FOREIGN AGENT SEPSIS LACTATE WITH REFLEX STAT 04/06/2024 5:14 PM FOREIGN AGENT COMPREHENSIVE METABOLIC PANEL STAT 04/06/2024 5:14 PM FOREIGN AGENT CBC WITH AUTO DIFFERENTIAL STAT 04/06/2024 5:14 PM FOREIGN AGENT BLOOD CULTURE STAT 04/06/2024 5:14 PM FOREIGN AGENT POCT GLUCOSE DEVICE Routine 04/01/2024 1 :37 PM FOREIGN AGENT POCT GLUCOSE DEVICE Routine 04/01/2024 5 :20 AM FOREIGN AGENT POCT GLUCOSE DEVICE Routine 04/01/2024 2 :38 AM FOREIGN AGENT POCT GLUCOSE DEVICE Routine 03/31/2024 9 :48 PM FOREIGN AGENT POCT GLUCOSE DEVICE Routine 03/31/2024 5 :[address] ABDOMEN PELVIS W CONTRAST ED 03/31/2024 4:15 PM FOREIGN AGENT URINALYSIS, MICROSCOPIC ONLY Routine 03/31/2024 2:21 PM FOREIGN AGENT URINE CULTURE Routine 03/31/2024 2:21 PM FOREIGN AGENT URINALYSIS AND REFLEX TO MICROSCOPIC AND CULTURE Routine 03/31/2024 2:21 PM FOREIGN AGENT POCT GLUCOSE DEVICE Routine 03/31/2024 2 :12 PM FOREIGN AGENT EGFR STAT 03/31/2024 2:07 PM FOREIGN AGENT DIFFERENTIAL AUTO STAT 03/31/2024 2:0 7 PM FOREIGN AGENT CBC WITH AUTO DIFFERENTIAL STAT 03/31/2024 2:07 PM FOREIGN AGENT PROTIME-INR STAT 03/31/2024 2:07 PM FOREIGN AGENT HEPATIC FUNCTION PANEL STAT 03/31/2024 2:07 PM FOREIGN AGENT BASIC METABOLIC PANEL STAT 03/31/2024 2:07 PM FOREIGN AGENT LIPID PANEL STAT 01/21/2024 8:23 PM FOREIGN AGENT HEMOGLOBIN A1C Routine 11/29/2023 8:54 PM CDT ALBUMIN CREATININE RATIO, URINE Routine 03/21/2023 12:32 PM FOREIGN AGENT from Last 3 Months or Most Recently Relevant to Health Maintenance Results * POCT glucose (04/09/2024 4:27 PM FOREIGN AGENT) Glucose, POC 112 70 - 199 mg/dL Blood 04/09/2024 4:27 PM FOREIGN AGENT 04/09/2024 4:27 PM FOREIGN AGENT Johan Oliver MD LAB POCT ORDERABLES - DEV ICE Final Result Performing Organization Address City/[facility]/ZIP Co de Phone Number [facility] Department [place] [address] * POCT glucose (04/09/2024 11:21 AM FOREIGN AGENT) Glucose, POC 143 70 - 199 mg/dL Blood 04/09/2024 11:2 1 AM FOREIGN AGENT 04/09/2024 11:21 AM FOREIGN AGENT Johan Oliver MD LAB POCT ORDERABLES - DEV ICE Final Result Performing Organization Address City/[facility] Co de Phone Number [facility] Department [place] [address] * (ABNORMAL) eGFR (04/09/2024 10:36 AM FOREIGN AGENT) eGFR 23(L) >=60 mL/min/1. 73 m2 Comment: [...] reviewed 2021. Blood 04/09/2024 10:3 6 AM FOREIGN AGENT 04/09/2024 11:00 AM FOREIGN AGENT us Johan Oliver MD LAB BLOOD ORDERABLES Lis l Result [facility] Department [place] [address] * (ABNORMAL) Basic metabolic panel (04/09/2024 10:36 AM FOREIGN AGENT) Sodium 140 135 - 145 mmol/L Potassium, pl 3.7 3.3 - 4.9 mmol/L [facility] Chloride 110 97 - 110 mmol/L [facility] CO2 24 22 - 32 mmol/L [facility] Anion gap 6 2 - 15 mmol/L [facility] BUN 33(H) 6 - 25 mg/dL [facility] Creatinine 2.58(H) 0.80 - 1.30 mg/dL [facility] Glucose 133 70 - 199 mg/dL [facility] Comment: Interpretive Data Fasting glucose [...] 2022. Calcium 8.9 8.5 - 10.3 mg/dL [facility] Blood 04/09/2024 10:3 6 AM FOREIGN AGENT 04/09/2024 11:00 AM FOREIGN AGENT Johan Oliver MD LAB BLOOD ORDERABLES Lis l Result Performing Organization Address [facility] Co de Phone Number [facility] [place] [address] * POCT glucose (04/09/2024 7:19 AM FOREIGN AGENT) Glucose, POC 101 70 - 199 mg/dL Blood 04/09/2024 7:19 AM FOREIGN AGENT 04/09/2024 7:19 AM FOREIGN AGENT us Johan Oliver MD LAB POCT ORDERABLES - DEV ICE Final Result Performing Organization Address [facility] de Phone Number [facility] [place] [address] * POCT glucose (04/09/2024 4:37 AM FOREIGN AGENT) Glucose, POC 103 70 - 199 mg/dL Blood 04/09/2024 4:37 AM FOREIGN AGENT 04/09/2024 4:37 AM FOREIGN AGENT us Johan Oliver MD LAB POCT ORDERABLES - DEV ICE Final Result Performing Organization Address [facility] Co de Phone Number [facility] Department [place] [address] * POCT glucose (04/09/2024 1:01 AM FOREIGN AGENT) Glucose, POC 124 70 - 199 mg/dL Blood 04/09/2024 1:01 AM FOREIGN AGENT 04/09/2024 1:01 AM FOREIGN AGENT Johan Oliver MD LAB POCT ORDERABLES - DEV ICE Final Result Performing Organization Address [facility] Co de Phone Number [facility] Department [place] [address] * (ABNORMAL) eGFR (04/08/2024 11:11 PM FOREIGN AGENT) [facility] [address] eGFR 22(L) >=60 mL/min/1. 73 m2 Comment: [...] reviewed 2021. Blood 04/08/2024 11:1 1 PM FOREIGN AGENT 04/08/2024 11:32 PM FOREIGN AGENT us Ling Farrell MD LAB BLOOD ORDERABLES Final Resul t [facility] Department [place] [address] * Differential, auto (04/08/2024 11:11 PM FOREIGN AGENT) Pathologist [facility] Neutrophil abs 3.0 1.5 - 6.5 K/cumm Imm gran abs 0.0 0.0 - 0.1 K/cumm [facility] Lymphocyte abs 1.3 0.8 - 3.3 K/cumm [facility] Monocyte abs 0.8 0.2 - 0.8 K/cumm [facility] Eosinophil abs 0.4 0.0 - 0.5 K/cumm [facility] Basophil abs 0.0 0.0 - 0.1 K/cumm [facility] Neutrophil pct 53.5 % [facility] Comment: Interpretive Data Percent cell count reference ranges are not reported, since discordance with absolute values may lead to misinterpretation of CBC data. Current Interpretive Data was last revised on 2017. Imm gran pct 0.7 % [facility] Comment: Interpretive Data Percent cell count reference ranges are not reported, since discordance with absolute values may lead to misinterpretation of CBC data. Current Interpretive Data was last revised on 2017. Lymphocyte pct 23.3 % [facility] Comment: Interpretive Data Percent cell count reference ranges are not reported, since discordance with absolute values may lead to misinterpretation of CBC data. Current Interpretive Data was last revised on 2017. Monocyte pct 14.6 % [facility] Comment: Interpretive Data Percent cell count reference ranges are not reported, since discordance with absolute values may lead to misinterpretation of CBC data. Current Interpretive Data was last revised on 2017. Eosinophil pct 7.2 % [facility] Comment: Interpretive Data Percent cell count reference ranges are not reported, since discordance with absolute values may lead to misinterpretation of CBC data. Current Interpretive Data was last revised on 2017. Basophil pct 0.7 % [facility] Comment: Interpretive Data Percent cell count reference ranges are not reported, since discordance with absolute values may lead to misinterpretation of CBC data. Current Interpretive Data was last revised on 2017. Blood 04/08/2024 11:1 1 PM FOREIGN AGENT 04/08/2024 11:34 PM FOREIGN AGENT us Johan Oliver MD LAB BLOOD ORDERABLES Lis anya Result [facility] Department [place] [address] * (ABNORMAL) CBC with auto differential (04/08/2024 11:11 PM FOREIGN AGENT) WBC 5.5 3.8 - 9.9 K/cumm Hgb 8.7(L) 13.0 - 17.5 g/dL [facility] Hct 26.7(L) 38.9 - 50.3 % [facility] Plt 110(L) 150 - 400 K/cumm [facility] MPV 10.0 9.1 - 12.3 fL [facility] RBC 2.76(L) 4.30 - 5.80 M/cumm [facility] MCV 96.7(H) 81.3 - 96.4 fL [facility] MCH 31.5 27.1 - 33.3 pg [facility] MCHC 32.6 32.3 - 35.7 g/dL [facility] RDW CV 13.7 11.1 - 14.9 % [facility] RDW SD 48.7(H) 35.7 - 48.1 fL [facility] NRBC abs 0.00 0.00 - 0.01 K/cumm [facility] Blood 04/08/2024 11:1 1 PM FOREIGN AGENT 04/08/2024 11:34 PM FOREIGN AGENT Johan Oliver MD LAB BLOOD ORDERABLES Lis joyner Result [facility] Department [place] [address] * (ABNORMAL) Basic metabolic panel (04/08/2024 11:11 PM FOREIGN AGENT) Sodium 139 135 - 145 mmol/L Potassium, pl 4.0 3.3 - 4.9 mmol/L [facility] Chloride 108 97 - 110 mmol/L [facility] CO2 25 22 - 32 mmol/L [facility] Anion gap 6 2 - 15 mmol/L [facility] BUN 34(H) 6 - 25 mg/dL [facility] Creatinine 2.73(H) 0.80 - 1.30 mg/dL [facility] Glucose 126 70 - 199 mg/dL [facility] Comment: Interpretive Data Fasting glucose [...] 2022. Calcium 8.8 8.5 - 10.3 mg/dL [facility] Blood 04/08/2024 11:1 1 PM FOREIGN AGENT 04/08/2024 11:32 PM FOREIGN AGENT Ling Farrell MD LAB BLOOD ORDERABLES Final Resul t Performing Organization Address [facility] Co de Phone Number [facility] [place] [address] * POCT glucose (04/08/2024 8:13 PM FOREIGN AGENT) Glucose, POC 156 70 - 199 mg/dL Blood 04/08/2024 8:13 PM FOREIGN AGENT 04/08/2024 8:13 PM FOREIGN AGENT Johan Oliver MD LAB POCT ORDERABLES - DEV ICE Final Result Performing Organization Address [facility] Co de Phone Number [facility] Department [place] [address] * POCT glucose (04/08/2024 4:39 PM FOREIGN AGENT) Glucose, POC 182 70 - 199 mg/dL Blood 04/08/2024 4:39 PM FOREIGN AGENT 04/08/2024 4:39 PM FOREIGN AGENT Johan Oliver MD LAB POCT ORDERABLES - DEV ICE Final Result Performing Organization Address [facility] Co de Phone Number [facility] Department [place] [address] * POCT glucose (04/08/2024 11:34 AM FOREIGN AGENT) Glucose, POC 185 70 - 199 mg/dL Blood 04/08/2024 11:3 4 AM FOREIGN AGENT 04/08/2024 11:34 AM FOREIGN AGENT Johan Oliver MD LAB POCT ORDERABLES - DEV ICE Final Result [facility] Department [place] [address] * GRAVE CLEANER Evaluation and Treatment (04/08/2024 10:47 AM FOREIGN AGENT) Narrative Regina Titus SLP - 04/08/2024 10:47 AM FOREIGN AGENT Regina Titus SLP 04/08/2024 2:45 PM Speech-Language Pathology: Clinical Bedside Swallow [facility] 88 y.o. male with a hx of vascular dementia, recurrent UTI, CKD (BL 2.5-2.7), Afib, T2DM who presented for AMS. GRAVE CLEANER hx: 07/03/23 bedside swallow at [facility] recommended regular/thin Respiratory/Intubation Status: room air Imaging: [...] regular solids and thin liquids. No further GRAVE CLEANER indicated at this time. Please refer if [...] Aspiration Risk: No aspiration risk (170-200) Plan GRAVE CLEANER Frequency of Services during current admission: Discharge from this Service GRAVE CLEANER Recommendation (Add'l Services): No further GRAVE CLEANER indicated Next Visit Plan:No further ST warranted Please reference care plan for treatment goals, if indicated. Discharge Summary Statement If this is the last swallow therapy visit, this serves as the discharge summary. Rivas RIVAS GRAVE CLEANER ORDERABLES Final Result * POCT glucose (04/08/2024 7:11 AM FOREIGN AGENT) [facility] Signature Glucose, POC 116 70 - 199 mg/dL Blood 04/08/2024 7:11 AM FOREIGN AGENT 04/08/2024 7:11 AM FOREIGN AGENT Johan Oliver MD LAB POCT ORDERABLES - DEV ICE Final Result BENJAMIN [facility] Department [place] [address] * POCT glucose (04/08/2024 5:04 AM FOREIGN AGENT) Glucose, POC 113 70 - 199 mg/dL Blood 04/08/2024 5:04 AM FOREIGN AGENT 04/08/2024 5:04 AM FOREIGN AGENT Ling Farrell MD LAB POCT ORDERABLES - DEVICE Fin al Result Performing Organization Address [facility] Co de Phone Number [facility] [place] [address] * POCT glucose (04/08/2024 1:46 AM FOREIGN AGENT) Glucose, POC 133 70 - 199 mg/dL Blood 04/08/2024 1:46 AM FOREIGN AGENT 04/08/2024 1:46 AM FOREIGN AGENT Ling Farrell MD LAB POCT ORDERABLES - DEVICE Fin al Result Performing Organization Address [facility] de Phone Number [facility] [place] [address] * (ABNORMAL) eGFR (04/07/2024 11:19 PM FOREIGN AGENT) Pathologist [facility] eGFR 28(L) >=60 mL/min/1. 73 m2 Comment: [...] reviewed 2021. Blood 04/07/2024 11:1 9 PM FOREIGN AGENT 04/08/2024 12:32 AM FOREIGN AGENT us Ling Farrell MD LAB BLOOD ORDERABLES Final Resul t [facility] Department [place] [address] * Differential, auto (04/07/2024 11:19 PM FOREIGN AGENT) Neutrophil abs 4.7 1.5 - 6.5 K/cumm Imm gran abs 0.1 0.0 - 0.1 K/cumm [facility] Lymphocyte abs 0.8 0.8 - 3.3 K/cumm [facility] Monocyte abs 0.6 0.2 - 0.8 K/cumm [facility] Eosinophil abs 0.3 0.0 - 0.5 K/cumm [facility] Basophil abs 0.0 0.0 - 0.1 K/cumm [facility] Neutrophil pct 72.6 % [facility] Comment: Interpretive Data Percent cell count reference ranges are not reported, since discordance with absolute values may lead to misinterpretation of CBC data. Current Interpretive Data was last revised on 2017. Imm gran pct 0.8 % [facility] Comment: Interpretive Data Percent cell count reference ranges are not reported, since discordance with absolute values may lead to misinterpretation of CBC data. Current Interpretive Data was last revised on 2017. Lymphocyte pct 11.7 % [facility] Comment: Interpretive Data Percent cell count reference ranges are not reported, since discordance with absolute values may lead to misinterpretation of CBC data. Current Interpretive Data was last revised on 2017. Monocyte pct 9.7 % [facility] Comment: Interpretive Data Percent cell count reference ranges are not reported, since discordance with absolute values may lead to misinterpretation of CBC data. Current Interpretive Data was last revised on 2017. Eosinophil pct 4.6 % [facility] Comment: Interpretive Data Percent cell count reference ranges are not reported, since discordance with absolute values may lead to misinterpretation of CBC data. Current Interpretive Data was last revised on 2017. Basophil pct 0.6 % [facility] Comment: Interpretive Data Percent cell count reference ranges are not reported, since discordance with absolute values may lead to misinterpretation of CBC data. Current Interpretive Data was last revised on 2017. Blood 04/07/2024 11:1 9 PM FOREIGN AGENT 04/08/2024 12:32 AM FOREIGN AGENT Ling Farrell MD LAB BLOOD ORDERABLES Final Resul t Performing Organization Address [facility] de Phone Number [facility] Department [place] [address] * (ABNORMAL) CBC with auto differential (04/07/2024 11:19 PM FOREIGN AGENT) WBC 6.5 3.8 - 9.9 K/cumm Hgb 9.5(L) 13.0 - 17.5 g/dL [facility] Hct 29.6(L) 38.9 - 50.3 % [facility] Plt 109(L) 150 - 400 K/cumm [facility] MPV 11.1 9.1 - 12.3 fL [facility] RBC 2.98(L) 4.30 - 5.80 M/cumm [facility] MCV 99.3(H) 81.3 - 96.4 fL [facility] MCH 31.9 27.1 - 33.3 pg [facility] MCHC 32.1(L) 32.3 - 35.7 g/dL [facility] RDW CV 13.4 11.1 - 14.9 % [facility] RDW SD 49.1(H) 35.7 - 48.1 fL [facility] NRBC abs 0.00 0.00 - 0.01 K/cumm [facility] Blood 04/07/2024 11:1 9 PM FOREIGN AGENT 04/08/2024 12:32 AM FOREIGN AGENT Ling Farrell MD LAB BLOOD ORDERABLES Final Resul t Performing Organization Address [facility] Co de Phone Number [facility] [place] [address] * Phosphorus (04/07/2024 11:19 PM FOREIGN AGENT) [facility] [address] Phosphorus, pl 2.5 2.3 - 4.5 mg/dL Blood 04/07/2024 11:1 9 PM FOREIGN AGENT 04/08/2024 12:32 AM FOREIGN AGENT Ling Farrell MD LAB BLOOD ORDERABLES Final Resul t Performing Organization Address [facility] Co de Phone Number [facility] [place] [address] * Magnesium (04/07/2024 11:19 PM FOREIGN AGENT) [facility] [address] Magnesium 2.1 1.4 - 2.5 mg/dL Blood 04/07/2024 11:1 9 PM FOREIGN AGENT 04/08/2024 12:32 AM FOREIGN AGENT Ling Farrell MD LAB BLOOD ORDERABLES Final Resul t Performing Organization Address [facility] de Phone Number [facility] [place] [address] * (ABNORMAL) Basic metabolic panel (04/07/2024 11:19 PM FOREIGN AGENT) [facility] [address] Sodium 141 135 - 145 mmol/L Potassium, pl 3.6 3.3 - 4.9 mmol/L [facility] Chloride 111(H) 97 - 110 mmol/L [facility] CO2 24 22 - 32 mmol/L [facility] Anion gap 6 2 - 15 mmol/L [facility] BUN 30(H) 6 - 25 mg/dL [facility] Creatinine 2.23(H) 0.80 - 1.30 mg/dL [facility] Glucose 133 70 - 199 mg/dL [facility] Comment: Interpretive Data Fasting glucose [...] 2022. Calcium 8.9 8.5 - 10.3 mg/dL [facility] Blood 04/07/2024 11:1 9 PM FOREIGN AGENT 04/08/2024 12:32 AM FOREIGN AGENT Ling Farrell MD LAB BLOOD ORDERABLES Final Resul t Performing Organization Address City/[facility] Co de Phone Number [facility] [place] [address] * POCT glucose (04/07/2024 7:43 PM FOREIGN AGENT) Glucose, POC 115 70 - 199 mg/dL Blood 04/07/2024 7:43 PM FOREIGN AGENT 04/07/2024 7:43 PM FOREIGN AGENT Ling Farrell MD LAB POCT ORDERABLES - DEVICE Fin al Result Performing Organization Address [facility] Co de Phone Number [facility] Department [place] [address] * (ABNORMAL) eGFR (04/07/2024 6:21 PM FOREIGN AGENT) eGFR 29(L) >=60 mL/min/1. 73 m2 Comment: [...] last reviewed 2021. Blood 04/07/2024 6:21 PM FOREIGN AGENT 04/07/2024 6:34 PM FOREIGN AGENT us Rivas RIVAS LAB BLOOD ORDERABLES Final R esult [facility] Department [place] [address] * (ABNORMAL) CBC without differential (04/07/2024 6:21 PM FOREIGN AGENT) WBC 7.0 3.8 - 9.9 K/cumm Hgb 11.4(L) 13.0 - 17.5 g/dL [facility] Hct 35.7(L) 38.9 - 50.3 % [facility] Plt 66(L) 150 - 400 K/cumm [facility] MPV 12.9(H) 9.1 - 12.3 fL [facility] RBC 3.59(L) 4.30 - 5.80 M/cumm [facility] MCV 99.4(H) 81.3 - 96.4 fL [facility] MCH 31.8 27.1 - 33.3 pg [facility] MCHC 31.9(L) 32.3 - 35.7 g/dL [facility] RDW CV 13.4 11.1 - 14.9 % [facility] RDW SD 49.1(H) 35.7 - 48.1 fL [facility] NRBC abs 0.00 0.00 - 0.01 K/cumm [facility] Blood 04/07/2024 6:21 PM FOREIGN AGENT 04/07/2024 6:34 PM FOREIGN AGENT us Rivas RIVAS LAB BLOOD ORDERABLES Final R esult [facility] Department [place] [address] * (ABNORMAL) Comprehensive metabolic panel (04/07/2024 6:21 PM FOREIGN AGENT) Sodium 140 135 - 145 mmol/L Potassium, pl 4.1 3.3 - 4.9 mmol/L [facility] Chloride 110 97 - 110 mmol/L [facility] CO2 24 22 - 32 mmol/L [facility] Anion gap 6 2 - 15 mmol/L [facility] BUN 28(H) 6 - 25 mg/dL [facility] Creatinine 2.15(H) 0.80 - 1.30 mg/dL [facility] Glucose 108 70 - 199 mg/dL [facility] Comment: Interpretive Data Fasting glucose [...] 2022. Calcium 9.3 8.5 - 10.3 mg/dL [facility] Bilirubin, total 0.4 0.1 - 1.2 mg/dL [facility] Protein, pl 6.2(L) 6.5 - 8.5 g/dL [facility] Albumin 3.1(L) 3.5 - 5.0 g/dL [facility] Alk phos 90 40 - 130 Units/L [facility] ALT 7 7 - 55 Units/L [facility] AST 13 10 - 50 Units/L [facility] Blood 04/07/2024 6:21 PM FOREIGN AGENT 04/07/2024 6:34 PM FOREIGN AGENT Rivas RIVAS LAB BLOOD ORDERABLES Final R esult Performing Organization Address City/[facility]/ZIP Co de Phone Number [facility] Department [place] [address] * POCT glucose (04/07/2024 2:11 PM FOREIGN AGENT) Glucose, POC 99 70 - 199 mg/dL Blood 04/07/2024 2:11 PM FOREIGN AGENT 04/07/2024 2:11 PM FOREIGN AGENT Anthoyn Tellez MD LAB POCT ORDERABLES - DEV ICE Final Result Performing Organization Address [facility] Co de Phone Number BENJAMIN [facility] Department [place] [address] * US Kidney Complete (04/07/2024 11:28 AM FOREIGN AGENT) Anatomical Region Laterality Modality Kidney N/A Ultrasound 04/07/2024 11:2 6 AM FOREIGN AGENT Impressions 04/07/2024 11:44 AM FOREIGN AGENT 1. Normal parenchymal echogenicity. No hydronephrosis. 2. Nonobstructing left lower pole renal calculus, unchanged from recent prior CT. Dictated by: Devin Montes M.D. The radiology attending physician has personally reviewed this study, and had reviewed and/or edited this written report and agrees with it. Electronically signed by: Morteza Ignacio M.D. Narrative 04/07/2024 11:44 AM FOREIGN AGENT EXAMINATION: COMPLETE RENAL SONOGRAM HISTORY: Abdominal pain [...] it. Electronically signed by: Morteza Ignacio M.D. Riavs RIVAS IMG US PROCEDURES Final Resu lt * POCT glucose (04/07/2024 8:12 AM FOREIGN AGENT) Glucose, POC 106 70 - 199 mg/dL Blood 04/07/2024 8:12 AM FOREIGN AGENT 04/07/2024 8:12 AM FOREIGN AGENT us Anthony Tellez MD LAB POCT ORDERABLES - DEV ICE Final Result BENJAMIN [facility] [place] [address] * POCT glucose (04/07/2024 4:56 AM FOREIGN AGENT) Glucose, POC 116 70 - 199 mg/dL Blood 04/07/2024 4:56 AM FOREIGN AGENT 04/07/2024 4:56 AM FOREIGN AGENT us Ling Farrell MD LAB POCT ORDERABLES - DEVICE Fin al Result Performing Organization Address City/[facility]/ZIP Co de Phone Number [facility] [place] [address] * (ABNORMAL) Urinalysis reflex to microscopic and culture Urine (04/06/2024 9:03 PM FOREIGN AGENT) Color, ur Yellow Yellow Clarity, ur Turbid(A) Clear [facility] Specific gravity, ur 1.015 1.003 - 1.030 [facility] pH, urine 6.5 [facility] Comment: Interpretive Data U rine pH is affected by diet, medications, systemic acid-base disturbances, and renal tubular function. pH may affect urinary stone formation. For example, urine pH below 6.0 may help reduce the tendency for calcium phosphate stones and pH greater than 6.0 may reduce the tendency for uric acid stone formation. Source: [facility] Current Interpretive Data was last revised on 2017 Protein, ur ql 2+(A) Negative [facility] Glucose, ur ql Negative Negative [facility] Ketones, ur Negative Negative [facility] Bilirubin, ur Negative Negative [facility] Blood, ur 2+(A) Negative [facility] Urobilinogen, ur <2.0 <2.0 mg/dL [facility] Nitrite, ur Positive(A) Negative [facility] Leukocyte esterase, ur 3+(A) Negative [facility] UA reflex comment Reflex to microscopic UA will be performed. [facility] Urine 04/06/2024 9:03 PM FOREIGN AGENT 04/06/2024 9:11 PM FOREIGN AGENT us Becka Kearney MD LAB MICROBIOLOGY - GENERAL [place] Final Result Performing Organization Address [facility]/ZIP Co de Phone Number BENJAMIN [facility] Department [place] [address] * (ABNORMAL) Urinalysis, microscopic only (04/06/2024 9:03 PM FOREIGN AGENT) WBC, ur >50(A) 0 - 5 /HPF RBC, ur 21-50(A) 0 - 2 /HPF [facility] Bacteria, ur 4+(A) [facility] Culture Reflex Comment Reflex to urine culture will be performed. [facility] Urine 04/06/2024 9:03 PM FOREIGN AGENT 04/06/2024 9:11 PM FOREIGN AGENT Becka Kearney MD LAB URINE ORDERABLES Final Resu lt Performing Organization Address [facility]/ZIP Co de Phone Number [facility] [place] [address] * (ABNORMAL) Urine culture Urine (04/06/2024 9:03 PM FOREIGN AGENT) Report Final Report: Greater than or equal to 100,000 colonies/mL of Escherichia coli (.) Organism ESCHERICHIA COLI [facility] Urine 04/06/2024 9:03 PM FOREIGN AGENT 04/06/2024 11:36 PM FOREIGN AGENT Narrative [facility] - 04/09/2024 12:13 PM FOREIGN AGENT Urine culture reflexed based upon urinalysis results. Testing performed by [facility] ([phone]) Organism Antibiotic Method Susceptibility Escherichia coli Ampicillin [...] Kearney MD LAB [facility]BIOLOGY - [facility]AL [facility] Final Result Performing Organization Address City/[facility]/ZIP Co de Phone Number [facility] Department [place] [address] * XR Chest 1 Vw Portable (04/06/2024 7:58 PM FOREIGN AGENT) Anatomical Region Laterality Modality Body, Chest N/A Computed Radiogr aphy 04/06/2024 8:04 PM FOREIGN AGENT Impressions 04/06/2024 8:09 PM FOREIGN AGENT FINDINGS/IMPRESSION: Mild bilateral lower lobe airspace opacities [...] Morteza Preston M.D. Narrative 04/06/2024 8:09 PM FOREIGN AGENT EXAMINATION: XR CHEST 1 VIEW HISTORY: altered [...] Result * ECG 12-LEAD (04/06/2024 7:35 PM FOREIGN AGENT) Narrative [facility] - 04/06/2024 7:35 PM FOREIGN AGENT Becka Kearney MD 04/06/2024 7:37 PM ECG [...] Becka Kearney MD ECG ORDERABLES Final Result [facility] * Respiratory pathogen panel Nasopharyngeal (04/06/2024 7:08 PM FOREIGN AGENT) Influenza A RNA Not Detected Not Detected Influenza B RNA Not Detected Not Detected [facility] RSV RNA Not Detected Not Detected [facility] COVID-19 RNA Not Detected Not Detected [facility] Coronavirus 229E RNA Not Detected Not Detected [facility] Coronavirus HKU1 RNA Not Detected Not Detected [facility] Coronavirus NL63 RNA Not Detected Not Detected [facility] Coronavirus OC43 RNA Not Detected Not Detected [facility] Adenovirus DNA Not Detected Not Detected [facility] Metapneumovirus RNA Not Detected Not Detected [facility] Rhinovirus/Enterov irus RNA Not Detected Not Detected [facility] Parainfluenza 1 RNA Not Detected Not Detected [facility] Parainfluenza 2 RNA Not Detected Not Detected [facility] Parainfluenza 3 RNA Not Detected Not Detected [facility] Parainfluenza 4 RNA Not Detected Not Detected [facility] B. pertussis DNA Not Detected Not Detected [facility] B. parapertussis DNA Not Detected Not Detected [facility] C. pneumoniae DNA Not Detected Not Detected [facility] M. pneumoniae DNA Not Detected Not Detected [facility] Nasopharyngeal 04/06/2024 7: 08 PM FOREIGN AGENT 04/06/2024 7:52 PM FOREIGN AGENT Narrative [facility] - 04/06/2024 9:12 PM FOREIGN AGENT Is the Patient experiencing symptoms consistent with COVID?->Yes Surveillance testing for transplant patient?->No Interpretive Data The Avitide FilmArray Respiratory Panel (RP2.1) assay is a [...] assay has FDA clearance for testing of [employer] SWITCHBOARD OPERATOR swabs. The performance of additional specimen types has been assessed by the performing laboratory. The performance characteristics of this assay have been determined by [facility] Molecular Infectious Disease Laboratory. Current interpretive data was last revised on 21. us Heather Mcnally MD LAB MICROBIOLOGY - GENER AL ORDERABLES Final Result [facility] Department [place] [address] * POCT glucose (04/06/2024 6:00 PM FOREIGN AGENT) Glucose, POC 198 70 - 199 mg/dL Blood 04/06/2024 6:00 PM FOREIGN AGENT 04/06/2024 6:00 PM FOREIGN AGENT us Becka Kearney MD LAB POCT ORDERABLES - DEVICE Fi nal Result [facility] Department [place] [address] * CT Head WO Contrast (04/06/2024 5:34 PM FOREIGN AGENT) Anatomical Region Laterality Modality Head and Neck N/A Computed Tomogra phy 04/06/2024 5:41 PM FOREIGN AGENT Impressions 04/06/2024 6:21 PM FOREIGN AGENT 1. No acute intracranial process. 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 Dictated by: Yecenia Sadler D.O. The radiology attending physician has personally reviewed this study, and had reviewed and/or edited this written report and agrees with it. Electronically signed by: Dea Monae MD, PhD Narrative 04/06/2024 6:21 PM FOREIGN AGENT EXAMINATION: CT head without contrast HISTORY: Mental [...] superior frontal gyrus infarct. Dictated by: Yecenia Alnazal, D.O. The radiology attending physician has personally reviewed this study, and had reviewed and/or edited this written report and agrees with it. Electronically signed by: Dea Monae MD, PhD us Becka Kearney MD IMG CT PROCEDURES Final Result * Sepsis Lactate w/ Reflex (04/06/2024 5:14 PM FOREIGN AGENT) Sepsis Lactate 1.4 0.7 - 2.0 mmol/L Blood 04/06/2024 5:14 PM FOREIGN AGENT 04/06/2024 5:25 PM FOREIGN AGENT us Becka Kearney MD LAB BLOOD ORDERABLES Final Resu lt [facility] Department [place] [address] * (ABNORMAL) eGFR (04/06/2024 5:14 PM FOREIGN AGENT) eGFR 28(L) >=60 mL/min/1. 73 m2 Comment: [...] last reviewed 2021. Blood 04/06/2024 5:14 PM FOREIGN AGENT 04/06/2024 5:37 PM FOREIGN AGENT us Becka Keareny MD LAB BLOOD ORDERABLES Final Resu lt [facility] Department [place] [address] * Differential, auto (04/06/2024 5:14 PM FOREIGN AGENT) Neutrophil abs 3.5 1.5 - 6.5 K/cumm Imm gran abs 0.1 0.0 - 0.1 K/cumm [facility] Lymphocyte abs 1.0 0.8 - 3.3 K/cumm [facility] Monocyte abs 0.7 0.2 - 0.8 K/cumm [facility] Eosinophil abs 0.4 0.0 - 0.5 K/cumm [facility] Basophil abs 0.1 0.0 - 0.1 K/cumm [facility] Neutrophil pct 61.2 % [facility] Comment: Interpretive Data Percent cell count reference ranges are not reported, since discordance with absolute values may lead to misinterpretation of CBC data. Current Interpretive Data was last revised on 2017. Imm gran pct 1.1 % [facility] Comment: Interpretive Data Percent cell count reference ranges are not reported, since discordance with absolute values may lead to misinterpretation of CBC data. Current Interpretive Data was last revised on 2017. Lymphocyte pct 17.9 % [facility] Comment: Interpretive Data Percent cell count reference ranges are not reported, since discordance with absolute values may lead to misinterpretation of CBC data. Current Interpretive Data was last revised on 2017. Monocyte pct 12.3 % [facility] Comment: Interpretive Data Percent cell count reference ranges are not reported, since discordance with absolute values may lead to misinterpretation of CBC data. Current Interpretive Data was last revised on 2017. Eosinophil pct 6.6 % [facility] Comment: Interpretive Data Percent cell count reference ranges are not reported, since discordance with absolute values may lead to misinterpretation of CBC data. Current Interpretive Data was last revised on 2017. Basophil pct 0.9 % [facility] Comment: Interpretive Data Percent cell count reference ranges are not reported, since discordance with absolute values may lead to misinterpretation of CBC data. Current Interpretive Data was last revised on 2017. Blood 04/06/2024 5:14 PM FOREIGN AGENT 04/06/2024 5:26 PM FOREIGN AGENT Becka Kearney MD LAB BLOOD ORDERABLES Final Resu lt Performing Organization Address City/[facility]/ZIP Co de Phone Number [facility] [place] [address] * (ABNORMAL) CBC with auto differential (04/06/2024 5:14 PM FOREIGN AGENT) Pathologist [facility] WBC 5.6 3.8 - 9.9 K/cumm Hgb 9.7(L) 13.0 - 17.5 g/dL [facility] Hct 28.9(L) 38.9 - 50.3 % [facility] Plt 98(L) 150 - 400 K/cumm [facility] Comment:No clot detected in sample. MPV 10.9 9.1 - 12.3 fL [facility] RBC 3.00(L) 4.30 - 5.80 M/cumm [facility] MCV 96.3 81.3 - 96.4 fL [facility] MCH 32.3 27.1 - 33.3 pg [facility] MCHC 33.6 32.3 - 35.7 g/dL [facility] RDW CV 13.6 11.1 - 14.9 % [facility] RDW SD 48.6(H) 35.7 - 48.1 fL [facility] NRBC abs 0.00 0.00 - 0.01 K/cumm [facility] Blood Venous blood specimen / Unknown 04/06/2024 5:14 PM FOREIGN AGENT 04/06/2024 5:26 PM FOREIGN AGENT Becka Kearney MD LAB BLOOD ORDERABLES Final Resu lt Performing Organization Address City/[facility]/ZIP Co de Phone Number [facility] [place] [address] * Blood culture Blood (04/06/2024 5:14 PM FOREIGN AGENT) Report Final Report: No growth Blood 04/06/2024 5:14 PM FOREIGN AGENT 04/06/2024 5:41 PM FOREIGN AGENT Narrative [facility] - 04/11/2024 7:01 AM FOREIGN AGENT Collection->Peripheral 1. Blood cultures are incubated for [...] performance characteristics have been verified by the [facility]biology Laboratory. For questions about this culture, contact the Microbiology Laboratory at [phone]. Interpretive data was last revised on 23. Becka Kearney MD LAB MICROBIOLOGY - [facility]AL [facility] Final Result [facility] [place] [address] * (ABNORMAL) Comprehensive metabolic panel (04/06/2024 5:14 PM FOREIGN AGENT) Sodium 141 135 - 145 mmol/L Potassium, pl 3.7 3.3 - 4.9 mmol/L [facility] Chloride 109 97 - 110 mmol/L [facility] CO2 25 22 - 32 mmol/L [facility] Anion gap 7 2 - 15 mmol/L [facility] BUN 30(H) 6 - 25 mg/dL [facility] Creatinine 2.22(H) 0.80 - 1.30 mg/dL [facility] Glucose 185 70 - 199 mg/dL [facility] Comment: Interpretive Data Fasting glucose [...] 2022. Calcium 9.2 8.5 - 10.3 mg/dL [facility] Bilirubin, total 0.3 0.1 - 1.2 mg/dL [facility] Protein, pl 5.8(L) 6.5 - 8.5 g/dL [facility] Albumin 3.0(L) 3.5 - 5.0 g/dL [facility] Alk phos 72 40 - 130 Units/L [facility] ALT 5(L) 7 - 55 Units/L [facility] AST 13 10 - 50 Units/L [facility] Blood Venous blood specimen / Unknown 04/06/2024 5:14 PM FOREIGN AGENT 04/06/2024 5:26 PM FOREIGN AGENT us Becka Kearney MD LAB BLOOD ORDERABLES Final Resu lt [facility] Department [place] [address] * POCT glucose (04/01/2024 1:37 PM FOREIGN AGENT) [facility] Signature Glucose, POC 107 70 - 199 mg/dL Blood 04/01/2024 1:37 PM FOREIGN AGENT 04/01/2024 1:37 PM FOREIGN AGENT us Charles Bowers MD LAB POCT ORDERABLES - ROSE CE Final Result Performing Organization Address [facility] [place] [address] * POCT glucose (04/01/2024 5:20 AM FOREIGN AGENT) Glucose, POC 103 70 - 199 mg/dL Blood 04/01/2024 5:20 AM FOREIGN AGENT 04/01/2024 5:20 AM FOREIGN AGENT Higinio Barbosa MD LAB POCT ORDERABLES - DEVICE Fin al Result Performing Organization Address [facility] [place] [address] * POCT glucose (04/01/2024 2:38 AM FOREIGN AGENT) Glucose, POC 97 70 - 199 mg/dL Blood 04/01/2024 2:38 AM FOREIGN AGENT 04/01/2024 2:38 AM FOREIGN AGENT Higinio Barbosa MD LAB POCT ORDERABLES - DEVICE Fin al Result Performing Organization Address [facility] Co de Phone Number [facility] [place] [address] * POCT glucose (03/31/2024 9:48 PM FOREIGN AGENT) Glucose, POC 118 70 - 199 mg/dL Blood 03/31/2024 9:48 PM FOREIGN AGENT 03/31/2024 9:48 PM FOREIGN AGENT us Sanket Gillespie MD LAB POCT ORDERABLES - ROSE CE Final Result Performing Organization Address [facility] Co de Phone Number [facility] [place] [address] * POCT glucose (03/31/2024 5:18 PM FOREIGN AGENT) Glucose, POC 120 70 - 199 mg/dL Blood 03/31/2024 5:18 PM FOREIGN AGENT 03/31/2024 5:18 PM FOREIGN AGENT us Sanket Gillespie MD LAB POCT ORDERABLES - ROSE CE Final Result [facility] Department [place] [address] * CT Abdomen Pelvis W Contrast (03/31/2024 4:15 PM FOREIGN AGENT) Anatomical Region Laterality Modality Body N/A Computed Tomogra phy 03/31/2024 4:38 PM FOREIGN AGENT Impressions 03/31/2024 4:38 PM FOREIGN AGENT 1. Large colorectal stool volume with mucosal [...] Yohan Roman M.D. Narrative 03/31/2024 4:38 PM FOREIGN AGENT EXAMINATION: Computed tomography of the abdomen and [...] stone. Electronically signed by: Yohan Roman M.D. [facility] Serene Bautista MD [facility] CT PROCEDURES Final Result * (ABNORMAL) Urinalysis reflex to microscopic and culture Urine (03/31/2024 2:21 PM FOREIGN AGENT) Color, ur Yellow Yellow Clarity, ur Cloudy(A) Clear [facility] Specific gravity, ur 1.020 1.003 - 1.030 [facility] pH, urine 6.0 [facility] Comment: Interpretive Data U rine pH is affected by diet, medications, systemic acid-base disturbances, and renal tubular function. pH may affect urinary stone formation. For example, urine pH below 6.0 may help reduce the tendency for calcium phosphate stones and pH greater than 6.0 may reduce the tendency for uric acid stone formation. Source: [employer] Current Interpretive Data was last revised on 2017 Protein, ur ql 2+(A) Negative [facility] Glucose, ur ql Negative Negative [facility] Ketones, ur Negative Negative [facility] Bilirubin, ur Negative Negative [facility] Blood, ur 1+(A) Negative [facility] Urobilinogen, ur <2.0 <2.0 mg/dL [facility] Nitrite, ur Negative Negative [facility] Leukocyte esterase, ur 3+(A) Negative [facility] UA reflex comment Reflex to microscopic UA will be performed. [facility] Urine 03/31/2024 2:21 PM FOREIGN AGENT 03/31/2024 2:42 PM FOREIGN AGENT Keyon Bautista MD LAB MICROBIOLOGY - GENERAL ORDE RABLES Final Result Performing Organization Address [facility] Co de Phone Number [facility] Department [place] [address] * (ABNORMAL) Urinalysis, microscopic only (03/31/2024 2:21 PM FOREIGN AGENT) WBC, ur >50(A) 0 - 5 /HPF RBC, ur 6-10(A) 0 - 2 /HPF [facility] Epithelial cells, squamous, ur 1-5 0 - 5 /HPF [facility] Yeast, ur 2+(A) [facility] Mucous, ur Present(A) [facility] Hyaline casts, ur 1-5 0 - 10 /LPF [facility] Culture Reflex Comment Reflex to urine culture will be performed. [facility] Urine 03/31/2024 2:21 PM FOREIGN AGENT 03/31/2024 2:42 PM FOREIGN AGENT Keyon Bautista MD LAB URINE ORDERABLES Final Resu lt Performing Organization Address City/[facility]/ZIP Co de Phone Number [facility] Department [place] [address] * Urine culture Urine (03/31/2024 2:21 PM FOREIGN AGENT) Report Final Report: Less than 100,000 colonies/mL (clinically insignificant growth based on current clinical standards) Organism (CLINICALLY INSIGNIFICANT GROWTH [facility] Urine 03/31/2024 2:21 PM FOREIGN AGENT 03/31/2024 3:42 PM FOREIGN AGENT Narrative [facility] - 04/01/2024 4:48 PM FOREIGN AGENT Urine culture reflexed based upon urinalysis results. Testing performed by [facility] ([phone]) us Keyon Bautista MD LAB MICROBIOLOGY - GENERAL ELISABETH NICOLCHRISTINA Final Result [facility] Department [place] [address] * POCT glucose (03/31/2024 2:12 PM FOREIGN AGENT) Glucose, POC 160 70 - 199 mg/dL Blood 03/31/2024 2:12 PM FOREIGN AGENT 03/31/2024 2:12 PM FOREIGN AGENT us Stephen Cheng MD LAB POCT ORDERABLES - D EVICE Final Result Performing Organization Address [facility] de Phone Number [facility] Department [place] [address] * (ABNORMAL) eGFR (03/31/2024 2:07 PM FOREIGN AGENT) eGFR 29(L) >=60 mL/min/1. 73 m2 Comment: [...] last reviewed 2021. Blood 03/31/2024 2:07 PM FOREIGN AGENT 03/31/2024 2:23 PM FOREIGN AGENT us Keyon Bautista MD LAB BLOOD ORDERABLES Final Resu lt [facility] Department [place] [address] * Differential, auto (03/31/2024 2:07 PM FOREIGN AGENT) Neutrophil abs 4.8 1.5 - 6.5 K/cumm Imm gran abs 0.0 0.0 - 0.1 K/cumm [facility] Lymphocyte abs 0.8 0.8 - 3.3 K/cumm [facility] Monocyte abs 0.4 0.2 - 0.8 K/cumm [facility] Eosinophil abs 0.0 0.0 - 0.5 K/cumm [facility] Basophil abs 0.0 0.0 - 0.1 K/cumm [facility] Neutrophil pct 78.4 % [facility] Comment: Interpretive Data Percent cell count reference ranges are not reported, since discordance with absolute values may lead to misinterpretation of CBC data. Current Interpretive Data was last revised on 2017. Imm gran pct 0.7 % [facility] Comment: Interpretive Data Percent cell count reference ranges are not reported, since discordance with absolute values may lead to misinterpretation of CBC data. Current Interpretive Data was last revised on 2017. Lymphocyte pct 13.4 % [facility] Comment: Interpretive Data Percent cell count reference ranges are not reported, since discordance with absolute values may lead to misinterpretation of CBC data. Current Interpretive Data was last revised on 2017. Monocyte pct 7.0 % [facility] Comment: Interpretive Data Percent cell count reference ranges are not reported, since discordance with absolute values may lead to misinterpretation of CBC data. Current Interpretive Data was last revised on 2017. Eosinophil pct 0.2 % [facility] Comment: Interpretive Data Percent cell count reference ranges are not reported, since discordance with absolute values may lead to misinterpretation of CBC data. Current Interpretive Data was last revised on 2017. Basophil pct 0.3 % [facility] Comment: Interpretive Data Percent cell count reference ranges are not reported, since discordance with absolute values may lead to misinterpretation of CBC data. Current Interpretive Data was last revised on 2017. Blood 03/31/2024 2:07 PM FOREIGN AGENT 03/31/2024 2:23 PM FOREIGN AGENT Keyon Bautista MD LAB BLOOD ORDERABLES Final Resu lt Performing Organization Address City/[facility]/ZIP Co de Phone Number [facility] [place] [address] * (ABNORMAL) CBC with auto differential (03/31/2024 2:07 PM FOREIGN AGENT) Pathologist [facility] WBC 6.1 3.8 - 9.9 K/cumm Hgb 10.5(L) 13.0 - 17.5 g/dL [facility] Hct 31.0(L) 38.9 - 50.3 % [facility] Plt 120(L) 150 - 400 K/cumm [facility] MPV 11.7 9.1 - 12.3 fL [facility] RBC 3.28(L) 4.30 - 5.80 M/cumm [facility] MCV 94.5 81.3 - 96.4 fL [facility] MCH 32.0 27.1 - 33.3 pg [facility] MCHC 33.9 32.3 - 35.7 g/dL [facility] RDW CV 13.4 11.1 - 14.9 % [facility] RDW SD 46.4 35.7 - 48.1 fL [facility] NRBC abs 0.00 0.00 - 0.01 K/cumm [facility] Blood 03/31/2024 2:07 PM FOREIGN AGENT 03/31/2024 2:23 PM FOREIGN AGENT us Keyon Bautista MD LAB BLOOD ORDERABLES Final Resu lt Performing Organization Address City/[facility]/ZIP Co de Phone Number [facility] Department [place] [address] * Protime-INR (03/31/2024 2:07 PM FOREIGN AGENT) PT 11.4 9.7 - 13.0 sec INR 1.05 0.90 - 1.20 [facility] Comment: Interpretive data Oral anticoagulant therapeutic ranges: Venous thromboembolism prophylaxis or treatment: 2.0-3.0 CARDIOLOGY Standard range: 2.0-3.0 High-intensity range: 2.5-3.5 Refer to indication-specific guidelines for appropriate target ranges for prosthetic heart valve replacement. Current interpretive data was last revised on 2019. Blood 03/31/2024 2:07 PM FOREIGN AGENT 03/31/2024 2:27 PM FOREIGN AGENT Keyon Bautista MD LAB BLOOD ORDERABLES Final Resu lt Performing Organization Address [facility] de Phone Number [facility] Department [place] [address] * (ABNORMAL) Hepatic function panel (03/31/2024 2:07 PM FOREIGN AGENT) Pathologist [facility] Bilirubin, total 0.4 0.1 - 1.2 mg/dL Bilirubin, direct <0.2 0.1 - 0.3 mg/dL [facility] Comment:Hemolyzed; result ma y be falsely decreased Protein, pl 6.4(L) 6.5 - 8.5 g/dL [facility] Albumin 3.4(L) 3.5 - 5.0 g/dL [facility] Alk phos 74 40 - 130 Units/L [facility] ALT 9 7 - 55 Units/L [facility] AST 21 10 - 50 Units/L [facility] Comment:Hemolyzed; result ma y be falsely elevated Blood 03/31/2024 2:07 PM FOREIGN AGENT 03/31/2024 2:23 PM FOREIGN AGENT Keyon Bautista MD LAB BLOOD ORDERABLES Final Resu lt Performing Organization Address [facility] de Phone Number [facility] Department [place] [address] * (ABNORMAL) Basic metabolic panel (03/31/2024 2:07 PM FOREIGN AGENT) Pathologist [facility] Sodium 140 135 - 145 mmol/L Potassium, pl 3.9 3.3 - 4.9 mmol/L [facility] Comment:Hemolyzed; Potassium value may be falsely elevated by as much as 0.3-0.5 mmol/L. Suggest redraw and reanalysis. Chloride 106 97 - 110 mmol/L [facility] CO2 23 22 - 32 mmol/L [facility] Anion gap 11 2 - 15 mmol/L [facility] BUN 39(H) 6 - 25 mg/dL [facility] Creatinine 2.16(H) 0.80 - 1.30 mg/dL [facility] Glucose 143 70 - 199 mg/dL [facility] Comment: Interpretive Data Fasting glucose [...] 2022. Calcium 10.3 8.5 - 10.3 mg/dL [facility] Blood 03/31/2024 2:07 PM FOREIGN AGENT 03/31/2024 2:23 PM FOREIGN AGENT us Keyon Bautista MD LAB BLOOD ORDERABLES Final Resu lt [facility] Department [place] [address] * (ABNORMAL) Lipid panel (01/21/2024 8:23 PM FOREIGN AGENT) Pathologist [facility] Cholesterol 156 30 - 199 mg/dL Comment: [...] revised on 2017. Triglycerides 76 <=149 mg/dL [facility] Comment: Interpretive Data Ages < [...] revised on 2017. HDL 38(L) >=40 mg/dL [facility] Comment: Interpretive Data Ages < [...] on 2017. LDL, calculated 103 <=129 mg/dL [facility] Comment: Interpretive Data Ages < or = 19 years Acceptable: <110 mg/dL Borderline high: 110-129 mg/dL High: >or= 130 mg/dL Ages > or = 20 years Optimal: <100 mg/dL Near optimal: 100-129 mg/dL Borderline high: 130-159 mg/dL High: >160 mg/dL Calculated using the Garcia LDL-C estimating equation. This equation was implemented on 2023. Prior to this date LDL-C was estimated using the Friedewald equation. Literature References: 1. Expert Panel on Integrated Guidelines for Cardiovascular Health and Risk Reduction in Children and Adolescents. Pediatrics 2011;128:S213 2. NCEP Expert Panel. Circulation 2004;110:227 3. Jose العلي et al. AYSE Cardiol. 2019July 02;5(5):540-548. doi: 10.1001/jamacardio.2020.0013 Current Interpretive Data was last revised on 2023. Non-HDL Cholesterol 118 mg/dL [facility] Comment: Interpretive Data Ages < [...] last revised on 2017. Chol/HDL ratio 4 [facility] Blood 01/21/2024 8:23 PM FOREIGN AGENT 01/21/2024 8:40 PM FOREIGN AGENT Nacho Hernandez MD LAB BLOOD ORDERABLES Final Re sult [facility] Department [place] [address] * Hemoglobin A1c (11/29/2023 8:54 PM CDT) Hgb A1C 5.2 4.0 - 5.6 % Estimated Average Glucose 103 mg/dL [facility] Comment: The ADA recommends reporting an estimated Average Glucose (eAG) with all Hemoglobin A1c results using the equation derived from a study of 507 normal and diabetic adults. Minority populations were underrepresented and children were not included. (Diabetes Care 2020; 43(S1): S66-S76). The eAG is not equivalent to a fasting glucose. Blood 11/29/2023 8:54 PM CDT 11/29/2023 9:15 PM CDT Lori Mckenzie MD LAB BLOOD ORDERABLES Lis l Result Performing Organization Address [facility] de Phone Number [facility] [place] [address] * (ABNORMAL) Albumin Creatinine Ratio, Urine (03/21/2023 12:32 PM FOREIGN AGENT) Albumin Ur 64.2 mg/L [facility] Comment: Interpretive Data No reference range established. Current interpretive data was last revised 2018. Creatinine Ur 77.7 mg/dL [facility] Comment: Interpretive Data No reference range established. Current interpretive data was last revised 2018. 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 Review for flag removal can begin on 05/27/24. 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
--- OUTSIDE RECORDS SUMMARY | 2024-05-19 15:16 | XMS_ITS | Clinical Summary ---
Author Organization [facility] Address [address] [facility] [address] [place] [phone] Phone Care Team Providers Care Curriculum And Instruction Specialist Name Role Phone Miguel Ángel Vigil MD Primary Care Provider [phone] Allergies Active Allergy Reactions Criticality Noted Date Comments Doxazosin Other (See comments) Low 04/12/2009 Very weak, broke into sweat. Dutasteride Fatigue Low 07/20/2010 Tamsulosin Fatigue,Unknown Low 07/20/2010 Medications pravastatin (PRAVACHOL) 40 mg tablet Take 1 tablet (40 mg total) by mouth nightly 30 tablet 12/02/2023 12/02/19 25 Active aspirin 81 mg [...] intracranial abnormality. XR pelvis without fracture. - PT/OT/FIBER OPTIC ASSEMBLER consults. Recommend SNF. Family declined, plan home [...] 03/20/2023 Assessment & Plan (03/22/2023 12:46 PM X RAY PHYSICIAN): Patient presents with ~2.5 weeks of acutely [...] during his hospital stay. HIV/RPR negative. TSH 5 was 4.73 with normal T4. bMRI with [...] precautions Assessment & Plan (03/21/2023 11:44 AM X RAY PHYSICIAN): Per notes, A&Ox1-2 at baseline; seems to [...] 2.8-3.0. He does not follow with a fern picker. Kidney imaging 05/16/23 CT AP WO Contrast showed nonobstructive bilateral renal calculi and distal left ureteral calculus. No hydronephrosis. Proteinuria 03/21/2023: Albumin Creatinine Ratio, Ur 83 CKD/ESRD regimen: sodium bicarb 650 BID Assessment & Plan (03/21/2023 8:41 AM X RAY PHYSICIAN): Renal function stable / improved from prior. -CTM volume status, renal function -Avoid renal toxins, renally dose meds Hematochezia 11/16/2020 Dyslipidemia 11/16/2020 Assessment & Plan (05/16/2023 11:36 PM CDT): Home med: pravastatin 40 mg daily. -continue pravastatin Assessment & Plan (03/21/2023 11:43 AM X RAY PHYSICIAN): - continue home pravastatin Depressive disorder 11/16/2020 Assessment & Plan (09/24/2023 1:13 AM CDT): - continue home lexapro Assessment & Plan (05/16/2023 11:37 PM CDT): Home med: escitalopram 10 mg daily. -continue escitalopram Assessment & Plan (03/21/2023 11:43 AM X RAY PHYSICIAN): - continue home lexapro Abnormal international normal [...] Ceftriaxone Assessment & Plan (03/21/2023 12:36 PM X RAY PHYSICIAN): Patient with reported history of frequent / [...] Lives with granddaughter, who is health care coach. Old infarct in the left HARLEY territory and additional small cortical infarcts in the high left perirolandic cortex. Mild periventricular and pontine white matter changes nonspecific but likely related to chronic small vessel disease. Punctate microhemorrhage in the left subinsular white matter. - Continue aspirin, pravastatin - plan home at discharge, Granddaughter (Teri Luke) multimedia teacher manager community - patient already w/HH and 24hr care in [address] Assessment & Plan (06/20/2023 4:53 PM CDT): Baseline of A&Ox2 but able to follow conversations, able to ambulate without walker, although unstable. Lives with granddaughter, who is health care coach. -PT/OT consult Personal history of nicotine dependence [...] 5.7. Assessment & Plan (03/21/2023 11:40 AM X RAY PHYSICIAN): No longer on meds, currently diet-controlled with [...] Coreg Assessment & Plan (03/21/2023 11:41 AM X RAY PHYSICIAN): Not on AC, NSR w/ RBBB on [...] tamsulosin Assessment & Plan (03/21/2023 11:43 AM X RAY PHYSICIAN): - continue home tamsulosin (allergy listed as [...] protonix Assessment & Plan (03/20/2023 8:30 PM X RAY PHYSICIAN): -PPI Insomnia 04/01/2010 Generalized anxiety disorder 05/17/2009 Occlusion and stenosis of bilateral carotid roz vignesh 10/29/2008 Resolved Problems Problem Noted Date Diagnosed Date Resolved Date Aspiration into lower respiratory tract 07/02/2023 07/04/2023 Assessment & Plan (07/03/2023 3:46 PM CDT): CXR from admit with bilateral opacities L>R concerning for aspiration vs atelectasis. Denies cough, difficulty swallowing. -Repeat CXR showed unchanged opacities -FIBER OPTIC ASSEMBLER eval with no signs of aspiration -Monitor [...] Norvasc Assessment & Plan (03/21/2023 11:40 AM X RAY PHYSICIAN): History of significant orthostatic hypotension requiring discontinuation of anti-HTN medications. - Continue home metoprolol Cerebrovascular accident (CVA) 05/17/2009 11/16/2020 Obstructive sleep apnea 11/25/200806/02 Assessment & Plan (06/20/2023 4:46 PM CDT): -CPAP at night Encounters Date Type Department Care Team Description 04/15/2024 SHOP/CHAP Initial Outreach [facility] [address] [place] [address] Doris Shahid RN 04/13/2024 SHOP/CHAP Initial Outreach [facility] [address] [place] [address] Doris Shahid RN 04/10/2024 SHOP/CHAP Initial Outreach [facility] [address] [place] [address] Doris Shahid RN 04/10/2024 SHOP/CHAP Initial Eligibility Review [facility] [address] [place] [address] Doris Shahid RN 04/06/2024 4:04 PM X RAY PHYSICIAN - 04/09/2024 7:04 PM [facility] Hospital Encounter [address] [address] Becka Kearney MD Ma, MD Rosalinda Dubon, MD Melody Womack, Johan Barron MD Altered mental status, unspecified altered mental status type (Primary Dx); Acute cystitis without hematuria; Hallucinations; Vascular dementia, unspecified dementia severity, unspecified whether behavioral, psychotic, or mood disturbance or anxiety (HCC) Discharge Disposition: Discharge to home, home health skilled care 03/31/2024 12:59 PM X RAY PHYSICIAN - 04/01/2024 7:11 PM [facility] Emergency [facility] Emergency Department [address] [place] [phone] Stephen Cheng MD Cohn, MD Chelsey Aguayo, MD Elissa Salgado, MD Ermias Gan, Olivia Vaughan MD Constipation, unspecified constipation type (Primary Dx); Abdominal pain Discharge Disposition: Discharge to home or self care from Last 3 Months Immunizations Immunization Administration Dates Next Due H1N1 Inj Preservative Free 02/15/2009 INFLUENZA [id number] 12/02/2013 Influenza, Quadrivalent, Hig h Dose, Preservative [...] History Medical History Date Comments Atrial fibrillation (HCC) Atrial fibrillation Hx Other Medical Mild [...] infection with out hematuria, site unspecified 12/02/2022 Hypercalcemia 06/27/2023 Arthritis Stroke (HCC) Family History Medical History [...] Tobacco: Never Tobacco Cessation:Counseling Given: Not Answered [facility] Utilities Answer Date Recorded In the [...] often do you attend chur ch or temple services? Never 04/08/2024 Do you belong to any clubs o r organizations such as nondenominational groups, unions, fraternal or athletic groups, or [...] place to sleep or slept in a longterm (including now)? No 06/28/2023 Housing Stability Vital Sign Answer Marquis e Recorded In the last 12 months, was t here a time when you were not able to pay the mortgage or rent on time? No 04/08/2024 In the past 12 months, how m any times have you moved where you were living? 0 04/08/2024 At any time in the past 12 m [facility], were you homeless or living in a longterm (including now)? No 04/08/2024 Personal Safety Answer Date Recorded Have you ever been in or are you currently in a harmful physical or emotional relationship or is someone making you feel afraid or unsafe? Denies 04/07/2024 Sex and Gender Information Value Date Recorded Sex Assigned at Not on file Legal Sex Male 5:18 AM X RAY PHYSICIAN Gender Identity Not on file Sexual Orientation Not on file Obstetrics History Last Filed Vital Signs Vital Sign Reading Time Taken Comments Blood Pressure 128/68 04/09/2024 5:52 PM X RAY PHYSICIAN Pulse 65 04/09/2024 5:52 PM X RAY PHYSICIAN Temperature 36.7 C (98.1 F) 04/09/2024 5:52 PM X RAY PHYSICIAN Respiratory Rate 18 04/09/2024 5:52 PM X RAY PHYSICIAN Oxygen Saturation 100% 04/09/2024 5:52 PM X RAY PHYSICIAN Inhaled Oxygen Concentration - - Weight 73.4 kg (161 lb 13.1 oz) 04/07/2024 8:18 PM X RAY PHYSICIAN Height 182.9 cm (6' 0.01) 04/07/2024 7:15 PM CS T Body Mass Index 21.94 04/07/2024 7:15 PM X RAY PHYSICIAN Plan of Treatment Health Maintenance Due Date Last Done Comments Dilated Eye Exam 1936 Foot Exam 1936 Hepatitis B Screening 1954 Well Visit 65+ 2001 Zoster Vaccine (1 of 2) 04/29/2009 Influenza Vaccine (#1) 2023 3, 01/11/2018, 01/02/2018, Additional history exists Albumin Creatinine Ratio, Urine 03/21/2024 Hemoglobin A1C 05/28/2024 11/29/2023, 10/0 03/2022, 05/18/2020 Depression Screening 01/20/2025 01/21/2024, 11/28/2023, 09/23/2023, Additional history exists Lipid Panel 01/20/2025 01/21/2024, 10/0 03/2022, 05/18/2020, Additional history exists Fall Risk Assessment 04/09/2025 04/09/2024 eGFR 04/09/2025 04/09/2024, 02/0 07/2024, 04/07/2024, Additional history exists DTaP/Tdap/Td Vaccine (2 - Td or Tdap) 09/23/2027 09/22/2017, 12/24/2013, 12/24/2013, Additional history exists Pneumococcal vaccine 65+ Completed 017, 12/02/2016, 12/02/2014, Additional history exists Procedures Procedure Name Priority Date/Time Associated Diagnosis Comments POCT GLUCOSE DEVICE Routine 04/09/2024 4 :27 PM X RAY PHYSICIAN POCT GLUCOSE DEVICE Routine 04/09/2024 1 1:21 AM X RAY PHYSICIAN EGFR Timed 04/09/2024 10:36 AM X RAY PHYSICIAN BASIC METABOLIC PANEL Timed 04/09/2024 10:36 AM X RAY PHYSICIAN POCT GLUCOSE DEVICE Routine 04/09/2024 7 :19 AM X RAY PHYSICIAN POCT GLUCOSE DEVICE Routine 04/09/2024 4 :37 AM X RAY PHYSICIAN POCT GLUCOSE DEVICE Routine 04/09/2024 1 :01 AM X RAY PHYSICIAN EGFR Routine 04/08/2024 11:11 PM X RAY PHYSICIAN DIFFERENTIAL AUTO Routine 04/08/2024 11: 11 PM X RAY PHYSICIAN CBC WITH AUTO DIFFERENTIAL Routine 04/08/2024 11:11 PM X RAY PHYSICIAN BASIC METABOLIC PANEL Routine 04/08/2024 11:11 PM X RAY PHYSICIAN POCT GLUCOSE DEVICE Routine 04/08/2024 8 :13 PM X RAY PHYSICIAN POCT GLUCOSE DEVICE Routine 04/08/2024 4 :39 PM X RAY PHYSICIAN POCT GLUCOSE DEVICE Routine 04/08/2024 1 1:34 AM X RAY PHYSICIAN F[employer]ER [employer]IC ASSEMBLER EVALUATE AND TREAT Routine 04/08/2024 10:47 AM X RAY PHYSICIAN POCT GLUCOSE DEVICE Routine 04/08/2024 7 :11 AM X RAY PHYSICIAN POCT GLUCOSE DEVICE Routine 04/08/2024 5 :04 AM X RAY PHYSICIAN POCT GLUCOSE DEVICE Routine 04/08/2024 1 :46 AM X RAY PHYSICIAN EGFR Routine 04/07/2024 11:19 PM X RAY PHYSICIAN DIFFERENTIAL AUTO Timed 04/07/2024 11: 19 PM X RAY PHYSICIAN CBC WITH AUTO DIFFERENTIAL Timed 04/07/2024 11:19 PM X RAY PHYSICIAN PHOSPHORUS Timed 04/07/2024 11:19 PM X RAY PHYSICIAN MAGNESIUM Timed 04/07/2024 11:19 PM X RAY PHYSICIAN BASIC METABOLIC PANEL Routine 04/07/2024 11:19 PM X RAY PHYSICIAN POCT GLUCOSE DEVICE Routine 04/07/2024 7 :43 PM X RAY PHYSICIAN EGFR Timed 04/07/2024 6:21 PM X RAY PHYSICIAN COMPREHENSIVE METABOLIC PANEL Timed 04/07/2024 6:21 PM X RAY PHYSICIAN CBC WITHOUT DIFFERENTIAL Timed 04/07/2024 6:21 PM X RAY PHYSICIAN POCT GLUCOSE DEVICE Routine 04/07/2024 2 :11 PM X RAY PHYSICIAN US KIDNEY COMPLETE IP Routine 04/07/2024 11 :28 AM X RAY PHYSICIAN POCT GLUCOSE DEVICE Routine 04/07/2024 8 :12 AM X RAY PHYSICIAN POCT GLUCOSE DEVICE Routine 04/07/2024 4 :56 AM X RAY PHYSICIAN URINALYSIS, MICROSCOPIC ONLY STAT 04/06/2024 9:03 PM X RAY PHYSICIAN URINE CULTURE STAT 04/06/2024 9:03 PM X RAY PHYSICIAN URINALYSIS AND REFLEX TO MICROSCOPIC AND CULTURE STAT 04/06/2024 9:03 PM X RAY PHYSICIAN XR CHEST 1 VIEW ED 04/06/2024 7:58 PM X RAY PHYSICIAN ECG 12-LEAD Routine 04/06/2024 7:35 PM X RAY PHYSICIAN RESPIRATORY PATHOGEN PANEL Routine 04/06/2024 7:08 PM X RAY PHYSICIAN POCT GLUCOSE DEVICE Routine 04/06/2024 6 :[address] HEAD WO CONTRAST ED 04/06/2024 5 :34 PM X RAY PHYSICIAN EGFR STAT 04/06/2024 5:14 PM X RAY PHYSICIAN DIFFERENTIAL AUTO STAT 04/06/2024 5:1 4 PM X RAY PHYSICIAN SEPSIS LACTATE WITH REFLEX STAT 04/06/2024 5:14 PM X RAY PHYSICIAN COMPREHENSIVE METABOLIC PANEL STAT 04/06/2024 5:14 PM X RAY PHYSICIAN CBC WITH AUTO DIFFERENTIAL STAT 04/06/2024 5:14 PM X RAY PHYSICIAN BLOOD CULTURE STAT 04/06/2024 5:14 PM X RAY PHYSICIAN POCT GLUCOSE DEVICE Routine 04/01/2024 1 :37 PM X RAY PHYSICIAN POCT GLUCOSE DEVICE Routine 04/01/2024 5 :20 AM X RAY PHYSICIAN POCT GLUCOSE DEVICE Routine 04/01/2024 2 :38 AM X RAY PHYSICIAN POCT GLUCOSE DEVICE Routine 03/31/2024 9 :48 PM X RAY PHYSICIAN POCT GLUCOSE DEVICE Routine 03/31/2024 5 :[address] ABDOMEN PELVIS W CONTRAST ED 03/31/2024 4:15 PM X RAY PHYSICIAN URINALYSIS, MICROSCOPIC ONLY Routine 03/31/2024 2:21 PM X RAY PHYSICIAN URINE CULTURE Routine 03/31/2024 2:21 PM X RAY PHYSICIAN URINALYSIS AND REFLEX TO MICROSCOPIC AND CULTURE Routine 03/31/2024 2:21 PM X RAY PHYSICIAN POCT GLUCOSE DEVICE Routine 03/31/2024 2 :12 PM X RAY PHYSICIAN EGFR STAT 03/31/2024 2:07 PM X RAY PHYSICIAN DIFFERENTIAL AUTO STAT 03/31/2024 2:0 7 PM X RAY PHYSICIAN CBC WITH AUTO DIFFERENTIAL STAT 03/31/2024 2:07 PM X RAY PHYSICIAN PROTIME-INR STAT 03/31/2024 2:07 PM X RAY PHYSICIAN HEPATIC FUNCTION PANEL STAT 03/31/2024 2:07 PM X RAY PHYSICIAN BASIC METABOLIC PANEL STAT 03/31/2024 2:07 PM X RAY PHYSICIAN LIPID PANEL STAT 01/21/2024 8:23 PM X RAY PHYSICIAN HEMOGLOBIN A1C Routine 11/29/2023 8:54 PM CDT ALBUMIN CREATININE RATIO, URINE Routine 03/21/2023 12:32 PM X RAY PHYSICIAN from Last 3 Months or Most Recently Relevant to Health Maintenance Results * POCT glucose (04/09/2024 4:27 PM X RAY PHYSICIAN) Glucose, POC 112 70 - 199 mg/dL Blood 04/09/2024 4:27 PM X RAY PHYSICIAN 04/09/2024 4:27 PM X RAY PHYSICIAN Johan Oliver MD LAB POCT ORDERABLES - DEV ICE Final Result Performing Organization Address City/[facility]/ZIP Co de Phone Number [facility] [place] [address] * POCT glucose (04/09/2024 11:21 AM X RAY PHYSICIAN) Glucose, POC 143 70 - 199 mg/dL Blood 04/09/2024 11:2 1 AM X RAY PHYSICIAN 04/09/2024 11:21 AM X RAY PHYSICIAN Johan Oliver MD LAB POCT ORDERABLES - DEV ICE Final Result Performing Organization Address City/[facility]/ZIP Co de Phone Number [facility] [place] [address] * (ABNORMAL) eGFR (04/09/2024 10:36 AM X RAY PHYSICIAN) eGFR 23(L) >=60 mL/min/1. 73 m2 Comment: [...] reviewed 2021. Blood 04/09/2024 10:3 6 AM X RAY PHYSICIAN 04/09/2024 11:00 AM X RAY PHYSICIAN us Johan Oliver MD LAB BLOOD ORDERABLES Lis l Result [facility] [place] [address] * (ABNORMAL) Basic metabolic panel (04/09/2024 10:36 AM X RAY PHYSICIAN) Sodium 140 135 - 145 mmol/L Potassium, pl 3.7 3.3 - 4.9 mmol/L [facility] Chloride 110 97 - 110 mmol/L [facility] CO2 24 22 - 32 mmol/L [facility] Anion gap 6 2 - 15 mmol/L [facility] BUN 33(H) 6 - 25 mg/dL [facility] Creatinine 2.58(H) 0.80 - 1.30 mg/dL [facility] Glucose 133 70 - 199 mg/dL [facility] Comment: Interpretive Data Fasting glucose >/= 126 [...] 2022. Calcium 8.9 8.5 - 10.3 mg/dL [facility] Blood 04/09/2024 10:3 6 AM X RAY PHYSICIAN 04/09/2024 11:00 AM X RAY PHYSICIAN Johan Oliver MD LAB BLOOD ORDERABLES Lis l Result Performing Organization Address [facility] Co de Phone Number [facility] [place] [address] * POCT glucose (04/09/2024 7:19 AM X RAY PHYSICIAN) Glucose, POC 101 70 - 199 mg/dL Blood 04/09/2024 7:19 AM X RAY PHYSICIAN 04/09/2024 7:19 AM X RAY PHYSICIAN Johan Oliver MD LAB POCT ORDERABLES - DEV ICE Final Result Performing Organization Address [facility] de Phone Number [facility] [place] [address] * POCT glucose (04/09/2024 4:37 AM X RAY PHYSICIAN) Glucose, POC 103 70 - 199 mg/dL Blood 04/09/2024 4:37 AM X RAY PHYSICIAN 04/09/2024 4:37 AM X RAY PHYSICIAN Johan Oliver MD LAB POCT ORDERABLES - DEV ICE Final Result Performing Organization Address [facility] Co de Phone Number [facility] [place] [address] * POCT glucose (04/09/2024 1:01 AM X RAY PHYSICIAN) Glucose, POC 124 70 - 199 mg/dL Blood 04/09/2024 1:01 AM X RAY PHYSICIAN 04/09/2024 1:01 AM X RAY PHYSICIAN us Johan Oliver MD LAB POCT ORDERABLES - DEV ICE Final Result Performing Organization Address City/[facility]/ZIP Co de Phone Number [facility] [place] [address] * (ABNORMAL) eGFR (04/08/2024 11:11 PM X RAY PHYSICIAN) [facility] eGFR 22(L) >=60 mL/min/1. 73 m2 Comment: [...] reviewed 2021. Blood 04/08/2024 11:1 1 PM X RAY PHYSICIAN 04/08/2024 11:32 PM X RAY PHYSICIAN us Ling Farrell MD LAB BLOOD ORDERABLES Final Resul t Performing Organization Address City/[facility]/ZIP Co de Phone Number [facility] [place] [address] * Differential, auto (04/08/2024 11:11 PM X RAY PHYSICIAN) Neutrophil abs 3.0 1.5 - 6.5 K/cumm Imm gran abs 0.0 0.0 - 0.1 K/cumm [facility] Lymphocyte abs 1.3 0.8 - 3.3 K/cumm [facility] Monocyte abs 0.8 0.2 - 0.8 K/cumm [facility] Eosinophil abs 0.4 0.0 - 0.5 K/cumm [facility] Basophil abs 0.0 0.0 - 0.1 K/cumm [facility] Neutrophil pct 53.5 % [facility] Comment: Interpretive Data Percent cell count reference ranges are not reported, since discordance with absolute values may lead to misinterpretation of CBC data. Current Interpretive Data was last revised on 2017. Imm gran pct 0.7 % [facility] Comment: Interpretive Data Percent cell count reference ranges are not reported, since discordance with absolute values may lead to misinterpretation of CBC data. Current Interpretive Data was last revised on 2017. Lymphocyte pct 23.3 % [facility] Comment: Interpretive Data Percent cell count reference ranges are not reported, since discordance with absolute values may lead to misinterpretation of CBC data. Current Interpretive Data was last revised on 2017. Monocyte pct 14.6 % [facility] Comment: Interpretive Data Percent cell count reference ranges are not reported, since discordance with absolute values may lead to misinterpretation of CBC data. Current Interpretive Data was last revised on 2017. Eosinophil pct 7.2 % [facility] Comment: Interpretive Data Percent cell count reference ranges are not reported, since discordance with absolute values may lead to misinterpretation of CBC data. Current Interpretive Data was last revised on 2017. Basophil pct 0.7 % [facility] Comment: Interpretive Data Percent cell count reference ranges are not reported, since discordance with absolute values may lead to misinterpretation of CBC data. Current Interpretive Data was last revised on 2017. Blood 04/08/2024 11:1 1 PM X RAY PHYSICIAN 04/08/2024 11:34 PM X RAY PHYSICIAN us Johan Oliver MD LAB BLOOD ORDERABLES Lis l Result Performing Organization Address [facility] de Phone Number [facility] [place] [address] * (ABNORMAL) CBC with auto differential (04/08/2024 11:11 PM X RAY PHYSICIAN) [facility] WBC 5.5 3.8 - 9.9 K/cumm Hgb 8.7(L) 13.0 - 17.5 g/dL [facility] Hct 26.7(L) 38.9 - 50.3 % [facility] Plt 110(L) 150 - 400 K/cumm [facility] MPV 10.0 9.1 - 12.3 fL [facility] RBC 2.76(L) 4.30 - 5.80 M/cumm [facility] MCV 96.7(H) 81.3 - 96.4 fL [facility] MCH 31.5 27.1 - 33.3 pg [facility] MCHC 32.6 32.3 - 35.7 g/dL [facility] RDW CV 13.7 11.1 - 14.9 % [facility] RDW SD 48.7(H) 35.7 - 48.1 fL [facility] NRBC abs 0.00 0.00 - 0.01 K/cumm [facility] Blood 04/08/2024 11:1 1 PM X RAY PHYSICIAN 04/08/2024 11:34 PM X RAY PHYSICIAN us Johan Oliver MD LAB BLOOD ORDERABLES Lis l Result Performing Organization Address [facility] Co de Phone Number [facility] [place] [address] * (ABNORMAL) Basic metabolic panel (04/08/2024 11:11 PM X RAY PHYSICIAN) [facility] Sodium 139 135 - 145 mmol/L Potassium, pl 4.0 3.3 - 4.9 mmol/L [facility] Chloride 108 97 - 110 mmol/L [facility] CO2 25 22 - 32 mmol/L [facility] Anion gap 6 2 - 15 mmol/L [facility] BUN 34(H) 6 - 25 mg/dL [facility] Creatinine 2.73(H) 0.80 - 1.30 mg/dL [facility] Glucose 126 70 - 199 mg/dL [facility] Comment: Interpretive Data Fasting glucose >/= 126 [...] 2022. Calcium 8.8 8.5 - 10.3 mg/dL [facility] Blood 04/08/2024 11:1 1 PM X RAY PHYSICIAN 04/08/2024 11:32 PM X RAY PHYSICIAN Ling Farrell MD LAB BLOOD ORDERABLES Final Resul t [facility] [place] [address] * POCT glucose (04/08/2024 8:13 PM X RAY PHYSICIAN) Glucose, POC 156 70 - 199 mg/dL Blood 04/08/2024 8:13 PM X RAY PHYSICIAN 04/08/2024 8:13 PM X RAY PHYSICIAN us Johan Oliver MD LAB POCT ORDERABLES - DEV ICE Final Result [facility] [place] [address] * POCT glucose (04/08/2024 4:39 PM X RAY PHYSICIAN) Glucose, POC 182 70 - 199 mg/dL Blood 04/08/2024 4:39 PM X RAY PHYSICIAN 04/08/2024 4:39 PM X RAY PHYSICIAN Johan Oliver MD LAB POCT ORDERABLES - DEV ICE Final Result Performing Organization Address City/[facility] Co de Phone Number [facility] [place] [address] * POCT glucose (04/08/2024 11:34 AM X RAY PHYSICIAN) [facility] Signature Glucose, POC 185 70 - 199 mg/dL Blood 04/08/2024 11:3 4 AM X RAY PHYSICIAN 04/08/2024 11:34 AM X RAY PHYSICIAN Johan Oliver MD LAB POCT ORDERABLES - DEV ICE Final Result Performing Organization Address City/[facility] Co de Phone Number [facility] [place] [address] * [employer]SEM[employer]ER Evaluation and Treatment (04/08/2024 10:47 AM X RAY PHYSICIAN) Narrative Regina Titus, BLAIR - 04/08/2024 10:47 AM X RAY PHYSICIAN Regina Titus, BLAIR 04/08/2024 2:45 PM Speech-Language Pathology: Clinical Bedside Swallow [facility] 88 y.o. male with a hx of vascular dementia, recurrent UTI, CKD (BL 2.5-2.7), Afib, T2DM who presented for AMS. [employer] ASSEMBLER hx: 07/03/23 bedside swallow at [facility] recommended regular/thin Respiratory/Intubation Status: room air Imaging: [...] regular solids and thin liquids. No further [employer]SEMBLER indicated at this time. Please refer if [...] Aspiration Risk: No aspiration risk (170-200) Plan [employer]ER Frequency of Services during current admission: Discharge from this Service [employer]SEMBLER Recommendation (Add'l Services): No further [employer] ASSEMBLER indicated Next Visit Plan:No further ST warranted Please reference care plan for treatment goals, if indicated. Discharge Summary Statement If this is the last swallow therapy visit, this serves as the discharge summary. Rivas RIVAS F[employer]ER [employer]IC ASSEMBLER ORDERABLES Final Result * POCT glucose (04/08/2024 7:11 AM X RAY PHYSICIAN) Glucose, POC 116 70 - 199 mg/dL Blood 04/08/2024 7:11 AM X RAY PHYSICIAN 04/08/2024 7:11 AM X RAY PHYSICIAN Johan Oliver MD LAB POCT ORDERABLES - DEV ICE Final Result Performing Organization Address [facility] de Phone Number [facility] [place] [id number] * POCT glucose (04/08/2024 5:04 AM X RAY PHYSICIAN) Glucose, POC 113 70 - 199 mg/dL Blood 04/08/2024 5:04 AM X RAY PHYSICIAN 04/08/2024 5:04 AM X RAY PHYSICIAN Ling Farrell MD LAB POCT ORDERABLES - DEVICE Fin al Result Performing Organization Address [facility] de Phone Number [facility] [place] [address] * POCT glucose (04/08/2024 1:46 AM X RAY PHYSICIAN) Glucose, POC 133 70 - 199 mg/dL Blood 04/08/2024 1:46 AM X RAY PHYSICIAN 04/08/2024 1:46 AM X RAY PHYSICIAN Ling Farrell MD LAB POCT ORDERABLES - DEVICE Fin al Result Performing Organization Address [facility] Phone Number [facility] Department [place] [address] * (ABNORMAL) eGFR (04/07/2024 11:19 PM X RAY PHYSICIAN) eGFR 28(L) >=60 mL/min/1. 73 m2 Comment: [...] reviewed 2021. Blood 04/07/2024 11:1 9 PM X RAY PHYSICIAN 04/08/2024 12:32 AM X RAY PHYSICIAN us Ling Farrell MD LAB BLOOD ORDERABLES Final Resul t [facility] Department [place] [address] * Differential, auto (04/07/2024 11:19 PM X RAY PHYSICIAN) Neutrophil abs 4.7 1.5 - 6.5 K/cumm Imm gran abs 0.1 0.0 - 0.1 K/cumm [facility] Lymphocyte abs 0.8 0.8 - 3.3 K/cumm [facility] Monocyte abs 0.6 0.2 - 0.8 K/cumm [facility] Eosinophil abs 0.3 0.0 - 0.5 K/cumm [facility] Basophil abs 0.0 0.0 - 0.1 K/cumm [facility] Neutrophil pct 72.6 % [facility] Comment: Interpretive Data Percent cell count reference ranges are not reported, since discordance with absolute values may lead to misinterpretation of CBC data. Current Interpretive Data was last revised on 2017. Imm gran pct 0.8 % [facility] Comment: Interpretive Data Percent cell count reference ranges are not reported, since discordance with absolute values may lead to misinterpretation of CBC data. Current Interpretive Data was last revised on 2017. Lymphocyte pct 11.7 % [facility] Comment: Interpretive Data Percent cell count reference ranges are not reported, since discordance with absolute values may lead to misinterpretation of CBC data. Current Interpretive Data was last revised on 2017. Monocyte pct 9.7 % [facility] Comment: Interpretive Data Percent cell count reference ranges are not reported, since discordance with absolute values may lead to misinterpretation of CBC data. Current Interpretive Data was last revised on 2017. Eosinophil pct 4.6 % [facility] Comment: Interpretive Data Percent cell count reference ranges are not reported, since discordance with absolute values may lead to misinterpretation of CBC data. Current Interpretive Data was last revised on 2017. Basophil pct 0.6 % [facility] Comment: Interpretive Data Percent cell count reference ranges are not reported, since discordance with absolute values may lead to misinterpretation of CBC data. Current Interpretive Data was last revised on 2017. Blood 04/07/2024 11:1 9 PM X RAY PHYSICIAN 04/08/2024 12:32 AM X RAY PHYSICIAN us Ling Farrell MD LAB BLOOD ORDERABLES Final Resul t [facility] Department [place] [address] * (ABNORMAL) CBC with auto differential (04/07/2024 11:19 PM X RAY PHYSICIAN) WBC 6.5 3.8 - 9.9 K/cumm Hgb 9.5(L) 13.0 - 17.5 g/dL [facility] Hct 29.6(L) 38.9 - 50.3 % [facility] Plt 109(L) 150 - 400 K/cumm [facility] MPV 11.1 9.1 - 12.3 fL [facility] RBC 2.98(L) 4.30 - 5.80 M/cumm [facility] MCV 99.3(H) 81.3 - 96.4 fL [facility] MCH 31.9 27.1 - 33.3 pg [facility] MCHC 32.1(L) 32.3 - 35.7 g/dL [facility] RDW CV 13.4 11.1 - 14.9 % [facility] RDW SD 49.1(H) 35.7 - 48.1 fL [facility] NRBC abs 0.00 0.00 - 0.01 K/cumm [facility] Blood 04/07/2024 11:1 9 PM X RAY PHYSICIAN 04/08/2024 12:32 AM X RAY PHYSICIAN Ling Farrell MD LAB BLOOD ORDERABLES Final Resul t Performing Organization Address City/[facility] Co de Phone Number [facility] [place] [address] * Phosphorus (04/07/2024 11:19 PM X RAY PHYSICIAN) Phosphorus, pl 2.5 2.3 - 4.5 mg/dL Blood 04/07/2024 11:1 9 PM X RAY PHYSICIAN 04/08/2024 12:32 AM X RAY PHYSICIAN Ling Farrell MD LAB BLOOD ORDERABLES Final Resul t Performing Organization Address [facility] de Phone Number [facility] [place] [address] * Magnesium (04/07/2024 11:19 PM X RAY PHYSICIAN) Magnesium 2.1 1.4 - 2.5 mg/dL Blood 04/07/2024 11:1 9 PM X RAY PHYSICIAN 04/08/2024 12:32 AM X RAY PHYSICIAN Ling Farrell MD LAB BLOOD ORDERABLES Final Resul t Performing Organization Address [facility] de Phone Number [facility] [place] [address] * (ABNORMAL) Basic metabolic panel (04/07/2024 11:19 PM X RAY PHYSICIAN) Sodium 141 135 - 145 mmol/L Potassium, pl 3.6 3.3 - 4.9 mmol/L [facility] Chloride 111(H) 97 - 110 mmol/L [facility] CO2 24 22 - 32 mmol/L [facility] Anion gap 6 2 - 15 mmol/L [facility] BUN 30(H) 6 - 25 mg/dL [facility] Creatinine 2.23(H) 0.80 - 1.30 mg/dL [facility] Glucose 133 70 - 199 mg/dL [facility] Comment: Interpretive Data Fasting glucose >/= 126 [...] 2022. Calcium 8.9 8.5 - 10.3 mg/dL [facility] Blood 04/07/2024 11:1 9 PM X RAY PHYSICIAN 04/08/2024 12:32 AM X RAY PHYSICIAN Ling Farrell MD LAB BLOOD ORDERABLES Final Resul t Performing Organization Address City/[facility] Co de Phone Number [facility] Department [place] [address] * POCT glucose (04/07/2024 7:43 PM X RAY PHYSICIAN) [facility] Glucose, POC 115 70 - 199 mg/dL Blood 04/07/2024 7:43 PM X RAY PHYSICIAN 04/07/2024 7:43 PM X RAY PHYSICIAN Ling Farrell MD LAB POCT ORDERABLES - DEVICE Fin al Result Performing Organization Address [facility] Co de Phone Number [facility] Department [place] [address] * (ABNORMAL) eGFR (04/07/2024 6:21 PM X RAY PHYSICIAN) [facility] eGFR 29(L) >=60 mL/min/1. 73 m2 Comment: [...] last reviewed 2021. Blood 04/07/2024 6:21 PM X RAY PHYSICIAN 04/07/2024 6:34 PM X RAY PHYSICIAN us Rivas RIVAS LAB BLOOD ORDERABLES Final R esult [facility] Department [place] [address] * (ABNORMAL) CBC without differential (04/07/2024 6:21 PM X RAY PHYSICIAN) [facility] WBC 7.0 3.8 - 9.9 K/cumm Hgb 11.4(L) 13.0 - 17.5 g/dL [facility] Hct 35.7(L) 38.9 - 50.3 % [facility] Plt 66(L) 150 - 400 K/cumm [facility] MPV 12.9(H) 9.1 - 12.3 fL [facility] RBC 3.59(L) 4.30 - 5.80 M/cumm [facility] MCV 99.4(H) 81.3 - 96.4 fL [facility] MCH 31.8 27.1 - 33.3 pg [facility] MCHC 31.9(L) 32.3 - 35.7 g/dL [facility] RDW CV 13.4 11.1 - 14.9 % [facility] RDW SD 49.1(H) 35.7 - 48.1 fL [facility] NRBC abs 0.00 0.00 - 0.01 K/cumm [facility] Blood 04/07/2024 6:21 PM X RAY PHYSICIAN 04/07/2024 6:34 PM X RAY PHYSICIAN us Rivas RIVAS LAB BLOOD ORDERABLES Final R esult [facility] Department [place] [address] * (ABNORMAL) Comprehensive metabolic panel (04/07/2024 6:21 PM X RAY PHYSICIAN) Sodium 140 135 - 145 mmol/L Potassium, pl 4.1 3.3 - 4.9 mmol/L [facility] Chloride 110 97 - 110 mmol/L [facility] CO2 24 22 - 32 mmol/L [facility] Anion gap 6 2 - 15 mmol/L [facility] BUN 28(H) 6 - 25 mg/dL [facility] Creatinine 2.15(H) 0.80 - 1.30 mg/dL [facility] Glucose 108 70 - 199 mg/dL [facility] Comment: Interpretive Data Fasting glucose >/= 126 [...] 2022. Calcium 9.3 8.5 - 10.3 mg/dL [facility] Bilirubin, total 0.4 0.1 - 1.2 mg/dL [facility] Protein, pl 6.2(L) 6.5 - 8.5 g/dL [facility] Albumin 3.1(L) 3.5 - 5.0 g/dL [facility] Alk phos 90 40 - 130 Units/L [facility] ALT 7 7 - 55 Units/L [facility] AST 13 10 - 50 Units/L [facility] Blood 04/07/2024 6:21 PM X RAY PHYSICIAN 04/07/2024 6:34 PM X RAY PHYSICIAN Rivas RIVAS LAB BLOOD ORDERABLES Final R esult Performing Organization Address City/[facility]/ZIP Co de Phone Number [facility] [place] [address] * POCT glucose (04/07/2024 2:11 PM X RAY PHYSICIAN) [facility] Signature Glucose, POC 99 70 - 199 mg/dL Blood 04/07/2024 2:11 PM X RAY PHYSICIAN 04/07/2024 2:11 PM X RAY PHYSICIAN Anthony Tellez MD LAB POCT ORDERABLES - DEV ICE Final Result Performing Organization Address [facility] Co de Phone Number [facility] [place] [address] * US Kidney Complete (04/07/2024 11:28 AM X RAY PHYSICIAN) Anatomical Region Laterality Modality Kidney N/A Ultrasound 04/07/2024 11:2 6 AM X RAY PHYSICIAN Impressions 04/07/2024 11:44 AM X RAY PHYSICIAN 1. Normal parenchymal echogenicity. No hydronephrosis. 2. Nonobstructing left lower pole renal calculus, unchanged from recent prior CT. Dictated by: Devin Montes M.D. The radiology attending physician has personally reviewed this study, and had reviewed and/or edited this written report and agrees with it. Electronically signed by: Morteza Ignacio M.D. Narrative 04/07/2024 11:44 AM X RAY PHYSICIAN EXAMINATION: COMPLETE RENAL SONOGRAM HISTORY: Abdominal pain [...] lt * POCT glucose (04/07/2024 8:12 AM X RAY PHYSICIAN) Glucose, POC 106 70 - 199 mg/dL Blood 04/07/2024 8:12 AM X RAY PHYSICIAN 04/07/2024 8:12 AM X RAY PHYSICIAN Anthony Tellez MD LAB POCT ORDERABLES - DEV ICE Final Result Performing Organization Address City/[facility]/ZIP Co de Phone Number [facility] [place] [address] * POCT glucose (04/07/2024 4:56 AM X RAY PHYSICIAN) Glucose, POC 116 70 - 199 mg/dL Blood 04/07/2024 4:56 AM X RAY PHYSICIAN 04/07/2024 4:56 AM X RAY PHYSICIAN us Ling Farrell MD LAB POCT ORDERABLES - DEVICE Fin al Result Performing Organization Address [facility] Co de Phone Number [facility] [place] [address] * (ABNORMAL) Urinalysis reflex to microscopic and culture Urine (04/06/2024 9:03 PM X RAY PHYSICIAN) Color, ur Yellow Yellow Clarity, ur Turbid(A) Clear [facility] Specific gravity, ur 1.015 1.003 - 1.030 [facility] pH, urine 6.5 [facility] Comment: Interpretive Data U rine pH is affected by diet, medications, systemic acid-base disturbances, and renal tubular function. pH may affect urinary stone formation. For example, urine pH below 6.0 may help reduce the tendency for calcium phosphate stones and pH greater than 6.0 may reduce the tendency for uric acid stone formation. Source: [facility] [employer] Current Interpretive Data was last revised on 2017 Protein, ur ql 2+(A) Negative [facility] Glucose, ur ql Negative Negative [facility] Ketones, ur Negative Negative [facility] Bilirubin, ur Negative Negative [facility] Blood, ur 2+(A) Negative [facility] Urobilinogen, ur <2.0 <2.0 mg/dL [facility] Nitrite, ur Positive(A) Negative [facility] Leukocyte esterase, ur 3+(A) Negative [facility] UA reflex comment Reflex to microscopic UA will be performed. [facility] Urine 04/06/2024 9:03 PM X RAY PHYSICIAN 04/06/2024 9:11 PM X RAY PHYSICIAN Becka Kearney MD LAB MICROBIOLOGY - GENERAL ORDE RABLES Final Result Performing Organization Address [facility] Co de Phone Number [facility] [place] [address] * (ABNORMAL) Urinalysis, microscopic only (04/06/2024 9:03 PM X RAY PHYSICIAN) WBC, ur >50(A) 0 - 5 /HPF RBC, ur 21-50(A) 0 - 2 /HPF [facility] Bacteria, ur 4+(A) [facility] Culture Reflex Comment Reflex to urine culture will be performed. [facility] Urine 04/06/2024 9:03 PM X RAY PHYSICIAN 04/06/2024 9:11 PM X RAY PHYSICIAN Becka Kearney MD LAB URINE ORDERABLES Final Resu lt Performing Organization Address [facility] Co de Phone Number [facility] [place] [address] * (ABNORMAL) Urine culture Urine (04/06/2024 9:03 PM X RAY PHYSICIAN) Report Final Report: Greater than or equal to 100,000 colonies/mL of Escherichia coli (.) Organism ESCHERICHIA COLI [facility] Urine 04/06/2024 9:03 PM X RAY PHYSICIAN 04/06/2024 11:36 PM X RAY PHYSICIAN Narrative [facility] - 04/09/2024 12:13 PM X RAY PHYSICIAN Urine culture reflexed based upon urinalysis results. Testing performed by [facility] ([phone]) Organism Antibiotic Method Susceptibility Escherichia coli Ampicillin [...] Becka Kearney MD LAB MICROBIOLOGY - GENERAL [facility] Final Result [facility] Department [place] [address] * XR Chest 1 Vw Portable (04/06/2024 7:58 PM X RAY PHYSICIAN) Anatomical Region Laterality Modality Body, Chest N/A Computed Radiogr aphy 04/06/2024 8:04 PM X RAY PHYSICIAN Impressions 04/06/2024 8:09 PM X RAY PHYSICIAN FINDINGS/IMPRESSION: Mild bilateral lower lobe airspace opacities [...] Morteza Preston M.D. Narrative 04/06/2024 8:09 PM X RAY PHYSICIAN EXAMINATION: XR CHEST 1 VIEW HISTORY: altered [...] Result * ECG 12-LEAD (04/06/2024 7:35 PM X RAY PHYSICIAN) Narrative [facility] - 04/06/2024 7:35 PM X RAY PHYSICIAN Becka Kearney MD 04/06/2024 7:37 PM ECG [...] in the ED Becka Kearney MD 04/06/241936 us Becka Kearney MD ECG ORDERABLES Final Result [facility] * Respiratory pathogen panel Nasopharyngeal (04/06/2024 7:08 PM X RAY PHYSICIAN) [facility] Influenza A RNA Not Detected Not Detected Influenza B RNA Not Detected Not Detected [facility] RSV RNA Not Detected Not Detected [facility] COVID-19 RNA Not Detected Not Detected [facility] Coronavirus 229E RNA Not Detected Not Detected [facility] Coronavirus HKU1 RNA Not Detected Not Detected [facility] Coronavirus NL63 RNA Not Detected Not Detected [facility] Coronavirus OC43 RNA Not Detected Not Detected [facility] Adenovirus DNA Not Detected Not Detected [facility] Metapneumovirus RNA Not Detected Not Detected [facility] Rhinovirus/Enterov irus RNA Not Detected Not Detected [facility] Parainfluenza 1 RNA Not Detected Not Detected [facility] Parainfluenza 2 RNA Not Detected Not Detected [facility] Parainfluenza 3 RNA Not Detected Not Detected [facility] Parainfluenza 4 RNA Not Detected Not Detected [facility] B. pertussis DNA Not Detected Not Detected [facility] B. parapertussis DNA Not Detected Not Detected [facility] C. pneumoniae DNA Not Detected Not Detected [facility] M. pneumoniae DNA Not Detected Not Detected [facility] Nasopharyngeal 04/06/2024 7: 08 PM X RAY PHYSICIAN 04/06/2024 7:52 PM X RAY PHYSICIAN Narrative [facility] - 04/06/2024 9:12 PM X RAY PHYSICIAN Is the Patient experiencing symptoms consistent with COVID?->Yes Surveillance testing for transplant patient?->No Interpretive Data [employer] FilmArray Respiratory Panel (RP2.1) assay is a [...] assay has FDA clearance for testing of FINE ARTS MODEL swabs. The performance of additional specimen types has been assessed by the performing laboratory. The performance characteristics of this assay have been determined by [facility] Molecular Infectious Disease Laboratory. Current interpretive data was last revised on 21. us Heather Mcnally MD LAB MICROBIOLOGY - [facility] ORDERABLES Final Result [facility] Department [place] [address] * POCT glucose (04/06/2024 6:00 PM X RAY PHYSICIAN) [facility] Signature Glucose, POC 198 70 - 199 mg/dL Blood 04/06/2024 6:00 PM X RAY PHYSICIAN 04/06/2024 6:00 PM X RAY PHYSICIAN us Becka Kearney MD LAB POCT ORDERABLES - DEVICE Fi nal Result [facility] Department [place] [address] * CT Head WO Contrast (04/06/2024 5:34 PM X RAY PHYSICIAN) Anatomical Region Laterality Modality Head and Neck N/A Computed Tomogra phy 04/06/2024 5:41 PM X RAY PHYSICIAN Impressions 04/06/2024 6:21 PM X RAY PHYSICIAN 1. No acute intracranial process. 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 Dictated by: Yecenia Sadler D.O. The radiology attending physician has personally reviewed this study, and had reviewed and/or edited this written report and agrees with it. Electronically signed by: Dea Monae MD, PhD Narrative 04/06/2024 6:21 PM X RAY PHYSICIAN EXAMINATION: CT head without contrast HISTORY: Mental [...] Sepsis Lactate w/ Reflex (04/06/2024 5:14 PM X RAY PHYSICIAN) Sepsis Lactate 1.4 0.7 - 2.0 mmol/L Blood 04/06/2024 5:14 PM X RAY PHYSICIAN 04/06/2024 5:25 PM X RAY PHYSICIAN Becka Kearney MD LAB BLOOD ORDERABLES Final Resu lt [facility] [place] [address] * (ABNORMAL) eGFR (04/06/2024 5:14 PM X RAY PHYSICIAN) eGFR 28(L) >=60 mL/min/1. 73 m2 Comment: [...] last reviewed 2021. Blood 04/06/2024 5:14 PM X RAY PHYSICIAN 04/06/2024 5:37 PM X RAY PHYSICIAN us Becka Kearney MD LAB BLOOD ORDERABLES Final Resu lt [facility] [place] [address] * Differential, auto (04/06/2024 5:14 PM X RAY PHYSICIAN) Neutrophil abs 3.5 1.5 - 6.5 K/cumm Imm gran abs 0.1 0.0 - 0.1 K/cumm [facility] Lymphocyte abs 1.0 0.8 - 3.3 K/cumm [facility] Monocyte abs 0.7 0.2 - 0.8 K/cumm [facility] Eosinophil abs 0.4 0.0 - 0.5 K/cumm [facility] Basophil abs 0.1 0.0 - 0.1 K/cumm [facility] Neutrophil pct 61.2 % [facility] Comment: Interpretive Data Percent cell count reference ranges are not reported, since discordance with absolute values may lead to misinterpretation of CBC data. Current Interpretive Data was last revised on 2017. Imm gran pct 1.1 % [facility] Comment: Interpretive Data Percent cell count reference ranges are not reported, since discordance with absolute values may lead to misinterpretation of CBC data. Current Interpretive Data was last revised on 2017. Lymphocyte pct 17.9 % [facility] Comment: Interpretive Data Percent cell count reference ranges are not reported, since discordance with absolute values may lead to misinterpretation of CBC data. Current Interpretive Data was last revised on 2017. Monocyte pct 12.3 % [facility] Comment: Interpretive Data Percent cell count reference ranges are not reported, since discordance with absolute values may lead to misinterpretation of CBC data. Current Interpretive Data was last revised on 2017. Eosinophil pct 6.6 % [facility] Comment: Interpretive Data Percent cell count reference ranges are not reported, since discordance with absolute values may lead to misinterpretation of CBC data. Current Interpretive Data was last revised on 2017. Basophil pct 0.9 % [facility] Comment: Interpretive Data Percent cell count reference ranges are not reported, since discordance with absolute values may lead to misinterpretation of CBC data. Current Interpretive Data was last revised on 2017. Blood 04/06/2024 5:14 PM X RAY PHYSICIAN 04/06/2024 5:26 PM X RAY PHYSICIAN us Becka Kearney MD LAB BLOOD ORDERABLES Final Resu lt [facility] [place] [address] * (ABNORMAL) CBC with auto differential (04/06/2024 5:14 PM X RAY PHYSICIAN) WBC 5.6 3.8 - 9.9 K/cumm Hgb 9.7(L) 13.0 - 17.5 g/dL [facility] Hct 28.9(L) 38.9 - 50.3 % [facility] Plt 98(L) 150 - 400 K/cumm [facility] Comment:No clot detected in sample. MPV 10.9 9.1 - 12.3 fL [facility] RBC 3.00(L) 4.30 - 5.80 M/cumm [facility] MCV 96.3 81.3 - 96.4 fL [facility] MCH 32.3 27.1 - 33.3 pg [facility] MCHC 33.6 32.3 - 35.7 g/dL [facility] RDW CV 13.6 11.1 - 14.9 % [facility] RDW SD 48.6(H) 35.7 - 48.1 fL [facility] NRBC abs 0.00 0.00 - 0.01 K/cumm [facility] Blood Venous blood specimen / Unknown 04/06/2024 5:14 PM X RAY PHYSICIAN 04/06/2024 5:26 PM X RAY PHYSICIAN Becka Kearney MD LAB BLOOD ORDERABLES Final Resu lt Performing Organization Address [facility]/ZIP Co de Phone Number [facility] Department [place] [address] * Blood culture Blood (04/06/2024 5:14 PM X RAY PHYSICIAN) Report Final Report: No growth Blood 04/06/2024 5:14 PM X RAY PHYSICIAN 04/06/2024 5:41 PM X RAY PHYSICIAN Narrative [facility] - 04/11/2024 7:01 AM X RAY PHYSICIAN Collection->Peripheral 1. Blood cultures are incubated for [...] performance characteristics have been verified by the [facility]. For questions about this culture, contact the Microbiology Laboratory at [phone]. Interpretive data was last revised on 23. Becka Kearney MD LAB MICROBIOLOGY - GENERAL ORDE RABLES Final Result Performing Organization Address [facility] Co de Phone Number [facility] [place] [address] * (ABNORMAL) Comprehensive metabolic panel (04/06/2024 5:14 PM X RAY PHYSICIAN) Sodium 141 135 - 145 mmol/L Potassium, pl 3.7 3.3 - 4.9 mmol/L [facility] Chloride 109 97 - 110 mmol/L [facility] [facility] CO2 25 22 - 32 mmol/L [facility] Anion gap 7 2 - 15 mmol/L [facility] BUN 30(H) 6 - 25 mg/dL [facility] Creatinine 2.22(H) 0.80 - 1.30 mg/dL [facility] Glucose 185 70 - 199 mg/dL [facility] Comment: Interpretive Data Fasting glucose >/= 126 [...] 2022. Calcium 9.2 8.5 - 10.3 mg/dL [facility] Bilirubin, total 0.3 0.1 - 1.2 mg/dL [facility] Protein, pl 5.8(L) 6.5 - 8.5 g/dL [facility] Albumin 3.0(L) 3.5 - 5.0 g/dL [facility] Alk phos 72 40 - 130 Units/L [facility] ALT 5(L) 7 - 55 Units/L [facility] AST 13 10 - 50 Units/L [facility] Blood Venous blood specimen / Unknown 04/06/2024 5:14 PM X RAY PHYSICIAN 04/06/2024 5:26 PM X RAY PHYSICIAN us Becka Kearney MD LAB BLOOD [place] [address] * POCT glucose (04/01/2024 1:37 PM X RAY PHYSICIAN) Glucose, POC 107 70 - 199 mg/dL Blood 04/01/2024 1:37 PM X RAY PHYSICIAN 04/01/2024 1:37 PM X RAY PHYSICIAN us Charles Bowers MD LAB POCT ORDERABLES - ROSE CE Final Result Performing Organization Address City/[facility]/[place] [address] * POCT glucose (04/01/2024 5:20 AM X RAY PHYSICIAN) Glucose, POC 103 70 - 199 mg/dL Blood 04/01/2024 5:20 AM X RAY PHYSICIAN 04/01/2024 5:20 AM X RAY PHYSICIAN us Higinio Barbosa MD LAB POCT ORDERABLES - DEVICE Fin al Result Performing Organization Address City/[facility]/[place] [address] * POCT glucose (04/01/2024 2:38 AM X RAY PHYSICIAN) Glucose, POC 97 70 - 199 mg/dL Blood 04/01/2024 2:38 AM X RAY PHYSICIAN 04/01/2024 2:38 AM X RAY PHYSICIAN us Higinio Barbosa MD LAB POCT ORDERABLES - DEVICE Fin al Result Performing Organization Address City/[facility]/[place] [address] * POCT glucose (03/31/2024 9:48 PM X RAY PHYSICIAN) Glucose, POC 118 70 - 199 mg/dL Blood 03/31/2024 9:48 PM X RAY PHYSICIAN 03/31/2024 9:48 PM X RAY PHYSICIAN Sanket Gillespie MD LAB POCT ORDERABLES - ROSE CE Final Result Performing Organization Address City/[facility] Co de Phone Number [facility] [place] [address] * POCT glucose (03/31/2024 5:18 PM X RAY PHYSICIAN) Glucose, POC 120 70 - 199 mg/dL Blood 03/31/2024 5:18 PM X RAY PHYSICIAN 03/31/2024 5:18 PM X RAY PHYSICIAN Sanket Gillespie MD LAB POCT ORDERABLES - ROSE CE Final Result Performing Organization Address [facility] de Phone Number [facility] [place] [address] * CT Abdomen Pelvis W Contrast (03/31/2024 4:15 PM X RAY PHYSICIAN) Anatomical Region Laterality Modality Body N/A Computed Tomogra phy 03/31/2024 4:38 PM X RAY PHYSICIAN Impressions 03/31/2024 4:38 PM X RAY PHYSICIAN 1. Large colorectal stool volume with mucosal [...] Yohan Roman M.D. Narrative 03/31/2024 4:38 PM X RAY PHYSICIAN EXAMINATION: Computed tomography of the abdomen and [...] stone. Electronically signed by: Yohan Roman M.D. [facility] Serene Bautista MD [facility] CT PROCEDURES Final Result * (ABNORMAL) Urinalysis reflex to microscopic and culture Urine (03/31/2024 2:21 PM X RAY PHYSICIAN) Color, ur Yellow Yellow Clarity, ur Cloudy(A) Clear [facility] Specific gravity, ur 1.020 1.003 - 1.030 [facility] pH, urine 6.0 [facility] Comment: Interpretive Data U rine pH is affected by diet, medications, systemic acid-base disturbances, and renal tubular function. pH may affect urinary stone formation. For example, urine pH below 6.0 may help reduce the tendency for calcium phosphate stones and pH greater than 6.0 may reduce the tendency for uric acid stone formation. Source: [facility] Current Interpretive Data was last revised on 2017 Protein, ur ql 2+(A) Negative [facility] Glucose, ur ql Negative Negative [facility] Ketones, ur Negative Negative [facility] Bilirubin, ur Negative Negative [facility] Blood, ur 1+(A) Negative [facility] Urobilinogen, ur <2.0 <2.0 mg/dL [facility] Nitrite, ur Negative Negative [facility] Leukocyte esterase, ur 3+(A) Negative [facility] UA reflex comment Reflex to microscopic UA will be performed. [facility] Urine 03/31/2024 2:21 PM X RAY PHYSICIAN 03/31/2024 2:42 PM X RAY PHYSICIAN us Keyon Bautista MD LAB MICROBIOLOGY - GENERAL ORDE RABLES Final Result Performing Organization Address [facility] de Phone Number [facility] [place] [address] * (ABNORMAL) Urinalysis, microscopic only (03/31/2024 2:21 PM X RAY PHYSICIAN) WBC, ur >50(A) 0 - 5 /HPF RBC, ur 6-10(A) 0 - 2 /HPF [facility] Epithelial cells, squamous, ur 1-5 0 - 5 /HPF [facility] Yeast, ur 2+(A) [facility] Mucous, ur Present(A) [facility] Hyaline casts, ur 1-5 0 - 10 /LPF [facility] Culture Reflex Comment Reflex to urine culture will be performed. [facility] Urine 03/31/2024 2:21 PM X RAY PHYSICIAN 03/31/2024 2:42 PM X RAY PHYSICIAN Keyon Bautista MD LAB URINE ORDERABLES Final Resu lt Performing Organization Address [facility] Co de Phone Number [facility] [place] [address] * Urine culture Urine (03/31/2024 2:21 PM X RAY PHYSICIAN) [facility] Report Final Report: Less than 100,000 colonies/mL (clinically insignificant growth based on current clinical standards) Organism (CLINICALLY INSIGNIFICANT GROWTH [facility] Urine 03/31/2024 2:21 PM X RAY PHYSICIAN 03/31/2024 3:42 PM X RAY PHYSICIAN Narrative [facility] - 04/01/2024 4:48 PM X RAY PHYSICIAN Urine culture reflexed based upon urinalysis results. Testing performed by [facility] ([phone]) us Keyon Bautista MD LAB MICROBIOLOGY - GENERAL [place] Final Result [facility] [place] [address] * POCT glucose (03/31/2024 2:12 PM X RAY PHYSICIAN) [facility] Glucose, POC 160 70 - 199 mg/dL Blood 03/31/2024 2:12 PM X RAY PHYSICIAN 03/31/2024 2:12 PM X RAY PHYSICIAN us Stephen Cheng MD LAB POCT ORDERABLES - D EVICE Final Result Performing Organization Address City/[facility]/ZIP Co de Phone Number [facility] [place] [address] * (ABNORMAL) eGFR (03/31/2024 2:07 PM X RAY PHYSICIAN) [facility] eGFR 29(L) >=60 mL/min/1. 73 m2 Comment: [...] last reviewed 2021. Blood 03/31/2024 2:07 PM X RAY PHYSICIAN 03/31/2024 2:23 PM X RAY PHYSICIAN us Keyon Bautista MD LAB BLOOD ORDERABLES Final Resu lt [facility] Department [place] [address] * Differential, auto (03/31/2024 2:07 PM X RAY PHYSICIAN) Neutrophil abs 4.8 1.5 - 6.5 K/cumm Imm gran abs 0.0 0.0 - 0.1 K/cumm [facility] Lymphocyte abs 0.8 0.8 - 3.3 K/cumm [facility] Monocyte abs 0.4 0.2 - 0.8 K/cumm [facility] Eosinophil abs 0.0 0.0 - 0.5 K/cumm [facility] Basophil abs 0.0 0.0 - 0.1 K/cumm [facility] Neutrophil pct 78.4 % [facility] Comment: Interpretive Data Percent cell count reference ranges are not reported, since discordance with absolute values may lead to misinterpretation of CBC data. Current Interpretive Data was last revised on 2017. Imm gran pct 0.7 % [facility] Comment: Interpretive Data Percent cell count reference ranges are not reported, since discordance with absolute values may lead to misinterpretation of CBC data. Current Interpretive Data was last revised on 2017. Lymphocyte pct 13.4 % [facility] Comment: Interpretive Data Percent cell count reference ranges are not reported, since discordance with absolute values may lead to misinterpretation of CBC data. Current Interpretive Data was last revised on 2017. Monocyte pct 7.0 % [facility] Comment: Interpretive Data Percent cell count reference ranges are not reported, since discordance with absolute values may lead to misinterpretation of CBC data. Current Interpretive Data was last revised on 2017. Eosinophil pct 0.2 % [facility] Comment: Interpretive Data Percent cell count reference ranges are not reported, since discordance with absolute values may lead to misinterpretation of CBC data. Current Interpretive Data was last revised on 2017. Basophil pct 0.3 % [facility] Comment: Interpretive Data Percent cell count reference ranges are not reported, since discordance with absolute values may lead to misinterpretation of CBC data. Current Interpretive Data was last revised on 2017. Blood 03/31/2024 2:07 PM X RAY PHYSICIAN 03/31/2024 2:23 PM X RAY PHYSICIAN us Keyon Bautista MD LAB BLOOD ORDERABLES Final Resu lt [facility] Department [place] [address] * (ABNORMAL) CBC with auto differential (03/31/2024 2:07 PM X RAY PHYSICIAN) WBC 6.1 3.8 - 9.9 K/cumm Hgb 10.5(L) 13.0 - 17.5 g/dL [facility] Hct 31.0(L) 38.9 - 50.3 % [facility] Plt 120(L) 150 - 400 K/cumm [facility] MPV 11.7 9.1 - 12.3 fL [facility] RBC 3.28(L) 4.30 - 5.80 M/cumm [facility] MCV 94.5 81.3 - 96.4 fL [facility] MCH 32.0 27.1 - 33.3 pg [facility] MCHC 33.9 32.3 - 35.7 g/dL [facility] RDW CV 13.4 11.1 - 14.9 % [facility] RDW SD 46.4 35.7 - 48.1 fL [facility] NRBC abs 0.00 0.00 - 0.01 K/cumm [facility] Blood 03/31/2024 2:07 PM X RAY PHYSICIAN 03/31/2024 2:23 PM X RAY PHYSICIAN Keyon Bautista MD LAB BLOOD ORDERABLES Final Resu lt Performing Organization Address [facility] de Phone Number [facility] [place] [address] * Protime-INR (03/31/2024 2:07 PM X RAY PHYSICIAN) PT 11.4 9.7 - 13.0 sec INR 1.05 0.90 - 1.20 [facility] Comment: Interpretive data Oral anticoagulant therapeutic ranges: Venous thromboembolism prophylaxis or treatment: 2.0-3.0 CARDIOLOGY Standard range: 2.0-3.0 High-intensity range: 2.5-3.5 Refer to indication-specific guidelines for appropriate target ranges for prosthetic heart valve replacement. Current interpretive data was last revised on 2019. Blood 03/31/2024 2:07 PM X RAY PHYSICIAN 03/31/2024 2:27 PM X RAY PHYSICIAN Keyon Bautista MD LAB BLOOD ORDERABLES Final Resu Performing Organization Address [facility] Phone Number [facility] [place] [address] * (ABNORMAL) Hepatic function panel (03/31/2024 2:07 PM X RAY PHYSICIAN) Bilirubin, total 0.4 0.1 - 1.2 mg/dL Bilirubin, direct <0.2 0.1 - 0.3 mg/dL [facility] Comment:Hemolyzed; result ma y be falsely decreased Protein, pl 6.4(L) 6.5 - 8.5 g/dL [facility] Albumin 3.4(L) 3.5 - 5.0 g/dL [facility] Alk phos 74 40 - 130 Units/L [facility] ALT 9 7 - 55 Units/L [facility] AST 21 10 - 50 Units/L [facility] Comment:Hemolyzed; result ma y be falsely elevated Blood 03/31/2024 2:07 PM X RAY PHYSICIAN 03/31/2024 2:23 PM X RAY PHYSICIAN us Keyon Bautista MD LAB BLOOD ORDERABLES Final Resu lt [facility] Department [place] [address] * (ABNORMAL) Basic metabolic panel (03/31/2024 2:07 PM X RAY PHYSICIAN) Sodium 140 135 - 145 mmol/L Potassium, pl 3.9 3.3 - 4.9 mmol/L [facility] Comment:Hemolyzed; Potassium value may be falsely elevated by as much as 0.3-0.5 mmol/L. Suggest redraw and reanalysis. Chloride 106 97 - 110 mmol/L [facility] CO2 23 22 - 32 mmol/L [facility] Anion gap 11 2 - 15 mmol/L [facility] BUN 39(H) 6 - 25 mg/dL [facility] Creatinine 2.16(H) 0.80 - 1.30 mg/dL [facility] Glucose 143 70 - 199 mg/dL [facility] Comment: Interpretive Data Fasting glucose >/= 126 [...] classification and Diagnosis of Diabetes Diabetes Care 2022; 46: S19-S40. Current interpretive data was last revised 2022. Calcium 10.3 8.5 - 10.3 mg/dL [facility] Blood 03/31/2024 2:07 PM X RAY PHYSICIAN 03/31/2024 2:23 PM X RAY PHYSICIAN us Keyon Bautista MD LAB BLOOD ORDERABLES Final Resu lt [facility] Department [place] [address] * (ABNORMAL) Lipid panel (01/21/2024 8:23 PM X RAY PHYSICIAN) Cholesterol 156 30 - 199 mg/dL Comment: [...] revised on 2017. Triglycerides 76 <=149 mg/dL [facility] Comment: Interpretive Data Ages < or = [...] on 2017. HDL 38(L) >=40 mg/dL [facility] Comment: Interpretive Data Ages < or = [...] 2017. LDL, calculated 103 <=129 mg/dL [facility] Comment: Interpretive Data Ages < or = [...] NCEP Expert Panel. Circulation 2004;110:227 3. Jose Dickey et al. AYSE Cardiol. 2019July 02;5(5):540-548. doi: 10.1001/jamacardio.2020.0013 Current Interpretive Data was last revised on 2023. Non-HDL Cholesterol 118 mg/dL [facility] Comment: Interpretive Data Ages < or [...] last revised on 2017. Chol/HDL ratio 4 [facility] Blood 01/21/2024 8:23 PM X RAY PHYSICIAN 01/21/2024 8:40 PM X RAY PHYSICIAN us Nacho Hernandez MD LAB BLOOD ORDERABLES Final Re sult [facility] [place] [address] * Hemoglobin A1c (11/29/2023 8:54 PM CDT) Hgb A1C 5.2 4.0 - 5.6 % Estimated Average Glucose 103 mg/dL [facility] Comment: The ADA recommends reporting an estimated Average Glucose (eAG) with all Hemoglobin A1c results using the equation derived from a study of 507 normal and diabetic adults. Minority populations were underrepresented and children were not included. (Diabetes Care 2020; 43(S1): S66-S76). The eAG is not equivalent to a fasting glucose. Blood 11/29/2023 8:54 PM CDT 11/29/2023 9:15 PM CDT us Lori Mckenzie MD LAB BLOOD ORDERABLES Lis l Result Performing Organization Address [facility] Co de Phone Number [facility] [place] [address] * (ABNORMAL) Albumin Creatinine Ratio, Urine (03/21/2023 12:32 PM X RAY PHYSICIAN) Albumin Ur 64.2 mg/L [facility] Comment: Interpretive Data No reference range established. Current interpretive data was last revised 2018. Creatinine Ur 77.7 mg/dL [facility] Comment: Interpretive Data No reference range established. Current interpretive data was last revised 2018. 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 Review for flag removal can begin on 05/27/24. Tabitha Estela 11/28/2023 11/28/2023 IRA 01/14/2024 01/14/2024 Insurance MEDICARE [facility] MEDICARE [facility] Advance Directives For more information, please contact: [phone] * LIMITED - No CPR (Latest Code [...] 8:48 PM 12/02/2023 6:56 PM Care Teams Curriculum And Instruction Specialist Relationship Specialty Start Date End Date Miguel Ángel Vigil MD [address] [place] [address] PCP - General Internal Medicine 12/03/22
--- OUTSIDE RECORDS SUMMARY | 2024-05-19 15:16 | XMS_ITS ---
Author Organization [facility] Address [address] [place] [address] Care Team Providers Care Php Wordpress Developer Name Role Phone Miguel Ángel Vigil Primary Care Provider [phone] REASON FOR VISIT URI Social History Sex Assigned At : Social History Observation Description Sex Assigned At Male Encounters Encounter Location Date Provider Diagnosis [address] [place] [address] 04/30/2024 Miguel Ángel Vigil Plan Of Treatment No Information Progress Notes * Karl WHITEHEAD EDOB:[birth year] (88 yo M)Acc No.[id number]:04/30/2024 Patient: Riley Karl PIERSON :1935 A ge:88 Y S ex:Male Address:[address] [place] [id number] * true * Date: Generated for Omairai rosangela/Gonzalo/eTransmitting on: 0 05/19/2024 03:16 PM CDT
--- OUTSIDE RECORDS SUMMARY | 2024-05-19 15:16 | XMS_ITS | CONTINUITY OF CARE DOCUMENT ---
Author Name miya holliday Address Unknown Organization [facility] Address [address] [place] [address] Phone [phone] Care Team Providers Care [employer] Line Worker Name Role Phone Henri Fischer MD Unavailable [phone] Rambo Bradford MD Unavailable Rambo Bradford MD [...] In-person encounter Office Visit Henri Fischer MD [facility] - In-person encounter Office Visit Henri Fischer MD [facility] Hypertension - In-person encounter Office Visit Henri Fischer MD [facility] Frequent fallsWeakness - In-person encounter Office Visit Judson Last MD [facility] - In-person encounter Office Visit Henri Fischer MD [facility] StrokeIntracranial hemorrhageCarotid artery stenosis, <50% ICA b/lObstructive sleep apnea - In-person encounter Office Visit Henri Fischer MD [facility] - In-person encounter Office Visit Henri Fischer MD [facility] - In-person encounter Office Visit Henri Fischer MD [facility] Carotid artery stenosis, <50% ICA b/lMitral regurgitation, mild - In-person encounter Office Visit Henri Fischer MD [facility] Tobacco use, quitChest pain-type to be determinedStrokeAtrial fibSyncope and collapseDiabetes mellitusIntracranial hemorrhageHemiparesis, rightMuscle spasm VITAL SIGNS Date Observation Value Provider Body Mass Index (Ratio) 30.11 kg/m2 Michael Salguero blood pressure, diastolic, left arm 90 mm [Hg] [facility], systolic, left arm 150 mm [Hg] [facility] pressure, diastolic, right arm 80 m m[Hg] [place] blood pressure, systolic, right arm 155 m m[Hg] [facility] pressure, diastolic 90 mm[Hg] Anival leeam blood pressure, systolic 150 mm[Hg] Isela allen [place] oxygen saturation, oximetry 98 % am respiratory rate E&M 16 /min [place] pulse rate 104 /min [facility] weight E&M 222 [lb_av] [place] height E&M 72 [in_i] [facility] Body Mass Index (Ratio) 29.70 kg/m2 Jv [...] /min Hortencia nick weight E&M 219 [lb_av] Horetncia nick height E&M 72 [in_i] Hortencia nick Body Mass Index (Ratio) 30.92 kg/m2 Luke Knapp NP blood pressure, cuff size large Ke rri Junior blood pressure, diastolic 70 mm[Hg] Ke rri Junior blood pressure, systolic 102 mm[Hg] Jorge Pacheco oxygen saturation, oximetry 97 % Cici Pacheco respiratory rate E&M 20 /min Cici Riley garcia pulse rate 83 /min Cici Eriberto [facility] weight E&M 228 [lb_av] Cici Eriberto [facility] height E&M 72 [in_i] Cici Conye [facility] Body Mass Index (Ratio) 28.88 kg/m2 Jv [...] pressure, systolic, left arm 121 mm [Hg] [facility], [facility], right arm 70 m m[Hg] Karly Ha blood pressure, systolic, right arm 114 m m[Hg] [facility], diastolic 76 mm[Hg] Nv alize Ha blood pressure, systolic 121 mm[Hg] Tyesha alston Ha pulse rate 80 /min Karly Ha oxygen saturation, oximetry 99 % [facility] rate E&M 15 /min Karly Ha Body Mass Index (Ratio) 28.21 kg/m2 TracyRUST weight E&M 208 [lb_av] Karly Ha blood [...] Karly Zavala blood pressure, diastolic 82 mm[Hg] Nv alize Zavala blood pressure, systolic 120 mm[Hg] [...] Not Estab. platelet count 241 X10E3/UL [employer] [phone]/06/ 01 red blood cell distribution width 13.4 [...] [employer]Log[employer] 3.5-5.2 sodium, serum 138 mmol/L [employer] [phone]/06/ 01 urea nitrogen/creatinine ratio, serum 18 [employer] [...] mg tablet active Shanell Guevara [employer] AREDS [id number] capsule active 2 once a day Cici [...] of grandchildren Henri Ingram alcohol use no [place] smoking, year quit 1964 [place] I ngram number of years as a smoker 10 a [place] smoking, date started 1953 Killee n smoking history, tot al pack/year 65 [place] smoking history, tot al pack/day 2 [place] cigarette use yes Romina smoking history, tot al pack/year 66 Henri Fischer MD social history reviewed E&M revi ewed - no changes required Padilla Berryberg cigarette use yes Hortencia [place] ms smoking status Former smoker Hortencia Santillan ia alcohol use no Cici Wei lder smoking, year quit 1963 Cici Teofilo [facility] number of years as a smoker 10 a Cici Pacheco smoking, date started 1953 Cici Pacheco smoking history, tot al pack/day 2 Cici Pacheco cigarette use yes Cici mccann smoking status Former smoker Cici shaikh number of years as a smoker 10 a Padilla [facility] social history E&M Smoking Histo ry: P meliton is a former smoker. Henri Fischer MD social history reviewed E&M revi ewed - no changes required Henri Fischer MD alcohol use no Cici Wei [facility] smoking, year quit 1963 Cici Teofilo [facility] smoking, date started 1953 Cici Pacheco smoking history, tot al pack/day 2 Ccii Pacheco cigarette use yes Cici mccann smoking status Former smoker Cici shaikh social history reviewed E&M revi ewed - no changes required Henri Fischer MD alcohol use no Delia chen smoking, year quit 1964 Delia Newton smoking, date started 1953 Gian Newton smoking history, tot al pack/day 2 Delia Newton cigarette use yes Delia mendoza smoking status Former smoker eDlia Dubois social history E&M Smoking Histo ry: [...] Payer name Policy type / Coverage type [place] red republican ID [facility] Blue [facility] [id number] [place] Medicare [id number] ADVANCE DIRECTIVES Name Date DISCUSSED - NO DECISION MADE TREATMENT PLAN Date Name Performer [id number],C, H is updated medication list for this problem includes: Glipizide 2.5 Mg Tablet Extended Release 24hr (Glipizide) ..... Take 1 once a day Shanell Guevara [id number],S, N ot compliant with CPAP. Shanell Guevara [id number],C, P rior BP: 150/90 (09/01/2018) Labs Reviewed: C reat: 2.13 (08/02/2018) L DL: 110 (12/25/2014) His updated medication list for this problem includes: Metoprolol Tartrate 25 Mg Tablet (Metoprolol tartrate) Nifedipine 90 Mg Tablet Extended Release 24hr (Nifedipine) Shanell Guevara [id number],C, T he pt had a recent admission [...] Fischer MD Cardiology:EKG today shows NSR. Padilla [facility] Cardiology:Pt has be en falling in the [...] obtain X-rays of the left elbow. Padilla [facility] Cardiology:Pt has be en falling in the [...] obtain X-rays of the left elbow. Padilla [facility] Cardiology Follow up HS/DENTAL INSURANCE BILLER:Check echo Steffi Knapp NP Cardiology Follow up HS/DENTAL INSURANCE BILLER:Untre ated Steffi Knapp NP Cardiology Follow up HS/DENTAL INSURANCE BILLER:Follows with Dr. Bradford, will check labs. H is updated medication list for this problem includes: Glipizide Er 2.5 Mg Oral Tablet Extended Release 24 Hour (Glipizide) ..... Take one pill a day Enalapril Maleate 20 Mg Oral Tablet (Enalapril maleate) ..... Once daily Steffi Knapp NP Cardiology Follow up HS/DENTAL INSURANCE BILLER:Currently maintaining NSR. No oral anticoagulation due to ICH. Will check ZIO. Could consider Watchman. Steffi Knapp NP Cardiology Follow up :His updated medication list for this problem includes: Glipizide Er 2.5 Mg Oral Ny27a-shw (Glipizide) ..... Take one pill a day [...] time does not want a procedure done. [facility] Cardiology Follow up :In NSR. He [...] procedure (the procedure is not available at [facility]). Padilla Felipa Cardiology, Follow up Padilla Felipa [...] subdural hematomas (January 2015). Padilla Leo Cardiology:His [facility] ed medication list for this problem includes: [...] not available yet, will obtain records from [facility]). Henri Fischer MD Cardiology:The pt dias s a hx of paroxysmal Afib. 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 He was on Coumadin and then Pradaxa. A few months ago, he fell and had an intracranial hemmorhage (details not available yet, will obtain records from [facility]). Will obtain records and then decide whether [...] not available yet, will obtain records from [facility]). At this time, he denies chest pain, [...] EKG Judson Last MD complete d SNOMED-CT: 48015083 Physical Exam, Performed: Pulse Exam of Foot Henri Fischer MD completed EKG Henri Fischer MD completed SNOMED-CT: 797326609 292795 Current Medications Documented Henri Fischer MD completed SNOMED-CT: 07335202 Physical Exam, Performed: Pulse Exam of Foot Henri Fischer MD completed SNOMED-CT: 220163593 Smoking Cessation Counseling Henri Fischer MD completed SNOMED-CT: 029626450 973598 Current Medications Documented Henri Fischer MD completed SNOMED-CT: 680068599 Smoking Cessation Counseling Henri Fischer MD completed SNOMED-CT: 62882573 Physical Exam, Performed: Pulse Exam of Foot Henri Fischer MD completed SNOMED-CT: 304184559 350430 Current Medications Documented Henri Fischer MD completed SNOMED-CT: 15249895 Physical Exam, Performed: Pulse Exam of Foot Henri Fischer MD completed SNOMED-CT: 155221395 Smoking Cessation Counseling Henri Fischer MD completed SNOMED-CT: 205862491 431897 Current Medications Documented Henri Fischer MD completed [employer] - Tech Julianna Melo completed [employer] [facility] [employer] - Prof Julianna Melo completed SNOMED-CT: 96009060 Physical Exam, Performed: Pulse Exam of Foot Henri Fischer MD completed SNOMED-CT: 208084110 594938 Current Medications Documented Henri Fischer MD completed EKG Henri Fischer MD completed SNOMED-CT: 549335108 Smoking Cessation Counseling Henri Fischer MD completed
--- OUTSIDE RECORDS SUMMARY | 2024-05-19 15:16 | XMS_ITS ---
Author Organization [facility] Address [address] [place] [address] Care Team Providers Care [employer] Systems Safety Engineer Name Role Phone Miguel Ángel Vigil Primary Care Provider [phone] Allergies No Known Allergies REASON FOR VISIT [...] - CLEANING WIPES EXTERNALLY DAILY Active Pen [place] 5/16 31G X 8 MM ONE NEEDLE SC DAILY 07/26/2022 Active Bisacodyl 5 MG 1 tablet as needed Orally TWICE DAILY Active DuoDerm Signal Dressing - apply to presacral area Externally every two days for 30 days 04/27/2024 Active Misc. Devices - LIVE BAG EXTERNALLY DAILY Active Misc. Devices - 18 INCHES EXTNSION TUBING FOR CONDOM CATHETER [id number] DAILY Active Aspirin Adult Low Dose 81 [...] confirmed Encounters Encounter Location Date Provider Diagnosis [address] [address] 04/27/2024 Miguel Ángel Vigil Bed sore on [...] Karl WHITEHEAD EDOB:[birth year] (88 yo M)Acc No.[id number]:04/27/2024 Patient: Karl PRECIADO Provider: Kendra Vigil :1935 A ge:88 Y S ex:Male Date:04/27/2024 Address:[address] [place], [place] [id number] Subjective: * Chief Complaints: * R /s [...] Plan required at this time. S creening: [place] Suicide Severity Rating Scale (LF) D o [...] tablet as needed Orally TWICE DAILY Pen Roark /16 31G X 8 MM Miscellaneous ONE NEEDLE SC DAILY Misc. Devices - Miscellaneous 18 INCHES EXTNSION TUBING FOR CONDOM CATHETER [id number] DAILY Misc. Devices - Miscellaneous LIVE BAG [...] as needed Orally TWICE DAILY Taking Pen [place] 5/16 31G X 8 MM Miscellaneous ONE NEEDLE SC DAILY Taking Misc. Devices - Miscellaneous 18 INCHES EXTNSION TUBING FOR CONDOM CATHETER [id number] DAILY Taking Misc. Devices - Miscellaneous LIVE [...] 04/27/2024 - * Procedure Codes: G 20[facility] PATIENT VISIT * Follow Up: 2 Months (Reason: monitor status) * * TRONICS INSTALLER Sign off status: Completed true * Provider: Kendra Vigil Date: 04/27/2024 Generated for Angelique ng/Gonzalo/eTransmitting on: 0 05/19/2024 03:16 PM CDT History and Physical Notes * HPI (History [...] Not at all Total Score: 0 Screening [place] Suicide Sev erity Rating Scale (LF) Do [...]
--- OUTSIDE RECORDS SUMMARY | 2024-05-19 15:16 | XMS_ITS ---
Author Organization [facility] Address [address] [place] [address] Care Team Providers Care Gun Profiler Name Role Phone Miguel Ángel Vigil Primary Care Provider Allergies No Known Allergies REASON FOR VISIT Hospital F/u [phone] Medications Medication SIG (Take, Route, Frequency, Duration) [...] 18 INCHES EXTNSION TUBING FOR CONDOM CATHETER [id number] DAILY Active Misc. Devices - LIVE BAG EXTERNALLY DAILY Active Bisacodyl 5 MG 1 tablet as needed Orally TWICE DAILY Active Pen [place] 5/16 31G X 8 MM ONE NEEDLE SC DAILY 07/26/2022 Active HYDROcodone-Acetaminophe n 5-325 MG 1 tablet Orally TWICE A DAY As needed SEVERE JOINT PAIN 04/16/2024 Active Social History Sex Assigned At : Social History Observation Description Sex Assigned At Male Encounters Encounter Location Date Provider Diagnosis [address] [place] [address] 04/22/2024 Miguel Ángel Vigil Plan Of Treatment No Information Progress Notes * Karl WHITEHEAD EDOB:[birth year] (88 yo M)Acc No.[id number]:04/22/2024 UNLOCKED PROGRESS NOTE Patient: Karl PRECIADO Provider: Kendra Vigil :1935 A ge:88 Y S ex:Male Date:04/22/2024 Address:[address] [place], [place] [id number] Subjective: * Chief Complaints: * 1 . Hospital F/u [phone]. * Medical History: * Surgical History: D [...] needed Orally TWICE DAILY , Taking Pen [place] 5/16 31G X 8 MM Miscellaneous ONE NEEDLE SC DAILY , Taking Misc. Devices - Miscellaneous 18 INCHES EXTNSION TUBING FOR CONDOM CATHETER [id number] DAILY , Taking Misc. Devices - Miscellaneous [...] * Electronic signature of Amandeep Vigil , [id number] on 05/19/2024 at 03:15 PM CDT Sign off status: Pending * Provider: Kendra Vigil Date: 0 04/22/2024 Generated for Angelique adames/Gonzalo/Jesusitting on: 0 05/19/2024 03:15 PM CDT
--- NOTE | 2024-05-19 15:22 | ED.GENADULT ---
HPI - General Adult General Chief complaint: Altered Mental Status Stated complaint: AMS Time Seen by Provider: 05/19/24 13:34 History of Present Illness HPI narrative: 88-year-old male with history of metabolic encephalopathy, urinary tract infection, dementia, CHF, chronic kidney disease and dementia present to the emergency department for evaluation for acute sign a shins and worsening mental status. Patient is cared for by family at home. Granddaughter states the patient has had increasing this Nations and altered mental status that is been worsening over the last 24 hours. Upon arrival emergency department patient is well-appearing denies any complaints but is not oriented. Related Data Home Medications ?Medication ?Instructions ?Recorded ?Confirmed ?Last Taken ?Type escitalopram oxalate 10 mg tablet 10 mg PO HS 08/08/22 05/19/24 05/18/24 History ferrous sulfate 325 mg (65 mg 325 mg PO DAILY 08/08/22 05/19/24 05/18/24 History iron) tablet pravastatin 40 mg tablet 40 mg PO HS 08/08/22 05/19/24 05/18/24 History sodium bicarbonate 650 mg tablet 650 mg PO BID 08/08/22 05/19/24 05/18/24 History tamsulosin 0.4 mg capsule 0.4 mg PO BID 08/08/22 05/19/24 05/18/24 History amlodipine 5 mg tablet (Norvasc) 5 mg PO DAILY 05/02/24 05/19/24 05/18/24 History aspirin 81 mg tablet 81 mg PO DAILY 05/02/24 05/19/24 05/18/24 History hydrocodone 5 mg-acetaminophen 325 1 tablet PO Q12H 05/02/24 05/19/24 05/18/24 History mg tablet pantoprazole 40 mg tablet,delayed 40 mg PO DAILY 05/02/24 05/19/24 05/18/24 History release Allergies Allergy/AdvReac Type Severity Reaction Status Date / Time No Known Allergies Allergy Verified 05/19/24 13:16 Review of Systems Review of Systems: All systems reviewed & are unremarkable except as noted in HPI and below PMFSH Past Medical History Medical History Hyperlipidemia Acute on chronic anemia 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 Congestive heart failure Acute kidney injury superimposed on CKD Delirium due to general medical condition Altered mental status Acute UTI Dementia Family History Family History Other Unknown family medical history Social History Social History Smoking status: Former smoker Alcohol intake: never Substance use: never Substance use type: does not use Do You Feel Safe in your Home?: Yes Lack of Transportation: No Lack of Food: Never True Current Housing: I Have Housing Concerned About Future Housing: No Difficulty Paying Gas/Electric Bills: No Difficulty Paying for Meds: No Currently Unemployed: No Education: High School Diploma/GED Difficulty w/ Childcare or Family Care: No Spiritual care concerns: No Exam Narrative: APPEARANCE: Well appearing, no pain, no distress, well-nourished. HEAD: normocephalic, atraumatic. EYES: PERRLA/EOMI, conjunctivae clear. NOSE: Normal no drainage EARS:TMS clear with good light reflex. THROAT: Pharynx clear, no exudate. NECK: Supple. No adenopathy, no masses. RESPIRATORY: Airway patent, respirations nonlabored. Clear to auscultation bilaterally, no rales, rhonchi, wheezing. CARDIOVASCULAR: Regular rate and rhythm without murmurs rubs or gallops. ABDOMINAL: Soft, nontender, nondistended, normal bowel sounds MUSCULOSKELETAL: Moves all extremities. Strength/ROM intact, No edema, No calf tenderness. NEURO: Alert but not orientated. Cranial nerves II through XII intact. Good gait. Good coordination SKIN: Warm, dry. Normal Color Course Vital Signs Vital signs: Vital Signs Temperature 97.8 F 05/19/24 13:01 Pulse Rate 79 05/19/24 13:01 Respiratory Rate 18 05/19/24 13:01 Blood Pressure 139/77 05/19/24 13:01 Pulse Oximetry 100 05/19/24 13:01 Oxygen Delivery Room Air 05/19/24 13:01 Temperature 97.8 F 05/19/24 21:36 Pulse Rate 18 L 05/19/24 21:36 Respiratory Rate 75 H 05/19/24 21:36 Blood Pressure 115/59 L 05/19/24 21:36 Pulse Oximetry 97 05/19/24 21:36 Oxygen Delivery Room Air 05/19/24 19:54 Medical Decision Making [facility] Narrative Medical decision making narrative: 87-year-old male history of dementia present to the emergency department for evaluation for worsening altered mental status and hallucinations. Patient is currently afebrile with no leukocytosis hemoglobin of 9.1. This hemoglobin is similar to his baseline. Patient's INR is 1.1. Patient has a creatinine of 2.36 which is similar to his baseline. UA was positive for leukocyte esterase, greater than 100 white blood cells. Patient was negative for influenza RSV and for COVID. Chest x-ray showed no acute evidence pneumonia no acute cardiopulmonary abnormalities. Head CT showed no intracranial hemorrhage, mass, or acute infarct. Patient was started on Rocephin for suspected urinary tract infection. Urine cultures pending. Differential Diagnosis Differential Diagnosis: UTI, subdural hematoma, subarachnoid hemorrhage, COVID, RSV, influenza, dementia, failure to thrive Vital Signs Vital Signs: Vital Signs Temperature 97.8 F 05/19/24 13:01 Pulse Rate 79 05/19/24 13:01 Respiratory Rate 18 05/19/24 13:01 Blood Pressure 139/77 05/19/24 13:01 Pulse Oximetry 100 05/19/24 13:01 Oxygen Delivery Room Air 05/19/24 13:01 Temperature 97.8 F 05/19/24 21:36 Pulse Rate 18 L 05/19/24 21:36 Respiratory Rate 75 H 05/19/24 21:36 Blood Pressure 115/59 L 05/19/24 21:36 Pulse Oximetry 97 05/19/24 21:36 Oxygen Delivery Room Air 05/19/24 19:54 Lab Data Lab results reviewed: Yes I reviewed the patient's lab results. 05/19/24 14:11 05/19/24 14:10 Labs: Lab Results 05/19/24 05/19/24 05/19/24 Range/Units 14:10 14:11 14:32 WBC 5.2 (4.5-10.0) K/mm3 RBC 2.84 L (4.6-6.20) M/mm3 Hgb 9.1 L (14.0-18.0) g/dL Hct 28.1 L (42.0-52.0) % MCV 98.9 (80-100) fl MCH 32.0 (26-34) pg MCHC 32.4 (32-36) g/dl RDW 13.4 (11.5-14.5) % Plt Count 124 L (150-375) k/mm3 MPV 10.5 H (7.4-10.4) fl Immature Gran % (Auto) 0.2 (0-0.5) % Neut % (Auto) 63.6 (45.5-73.1) % Lymph % (Auto) 20.7 (18.3-44.2) % [place] % (Auto) 8.6 H (2.6-8.5) % Eos % (Auto) 5.9 H (0-4.4) % Baso % (Auto) 1.0 (0.2-1.2) % Lymph # (Auto) 1.08 (0.9-3.2) K/mm3 [place] # (Auto) 0.5 (0.1-0.6) K/mm3 Eos # (Auto) 0.3 (0-0.3) K/mm3 Baso # (Auto) 0.1 (0.0-0.1) K/mm3 Abs Immat Gran (auto) 0.01 (0.00-0.031) K/mm3 Absolute Neuts (auto) 3.3 (1.3-6.7) K/mm3 Absolute Nucleated RBC 0.000 (0.0-0.012) K/mm3 Nucleated RBC % 0.0 (0.0-0.2) % % Immature Plt Fraction 3.6 (0.9-11.2) % PT 14.2 (11.1-14.7) Seconds INR 1.1 APTT 26.2 (22.3-36.8) Seconds Sodium 140 (137-145) mmol/L Potassium 3.5 (3.4-5.0) mmol/L Chloride 104 (98-107) mmol/L Carbon Dioxide 27 (22-30) mmol/L Anion Gap 9 (4-12) mmol/L BUN 30 H (9-20) mg/dL Creatinine 2.36 H (0.7-1.3) mg/dL Estim Creat Clear Calc 20 ml/min Estimated GFR 26 L (59 - ) Glucose 98 (65-110) mg/dL Calcium 9.8 (8.4-10.2) mg/dL Total Bilirubin 0.4 (0.2-1.3) mg/dL AST 19 (17-59) U/L ALT 10 (6-50) U/L Alkaline Phosphatase 87 (38-126) U/L Total Protein 7.0 (6.3-8.2) g/dL Albumin 3.5 (3.5-5.1) g/dL Urine Color (Yellow) Urine Appearance (Clear) Urine pH (5.0-9.0) Ur Specific [place] (1.001-1.035) Urine Protein (Negative) mg/dL Urine Glucose (UA) (Negative) mg/dL Urine Ketones (Negative) mg/dL Ur Blood (Man) (Negative) Urine Nitrate (Negative) Urine Bilirubin (Negative) Urine Urobilinogen (<2.0) mg/dL Add Ur Microanalysis Leukocyte Esterase Rfl (Negative) ANH/UL Urine RBC (0-2) /hpf Urine WBC (0-3) /hpf Ur Squamous Epith Cells (Few) /hpf Urine Bacteria /hpf Urine Casts Urine Yeast (Budding) (None) /hpf Influenza A (RT-PCR) Negative (Negative) Influenza B (RT-PCR) Negative (Negative) RSV (RT-PCR) Negative (Negative) SARS-CoV-2 RNA (RT-PCR) Negative (Negative) 05/19/24 Range/Units 14:46 WBC (4.5-10.0) K/mm3 RBC (4.6-6.20) M/mm3 Hgb (14.0-18.0) g/dL Hct (42.0-52.0) % MCV (80-100) fl MCH (26-34) pg MCHC (32-36) g/dl RDW (11.5-14.5) % Plt Count (150-375) k/mm3 MPV (7.4-10.4) fl Immature Gran % (Auto) (0-0.5) % Neut % (Auto) (45.5-73.1) % Lymph % (Auto) (18.3-44.2) % [place] % (Auto) (2.6-8.5) % Eos % (Auto) (0-4.4) % Baso % (Auto) (0.2-1.2) % Lymph # (Auto) (0.9-3.2) K/mm3 [place] # (Auto) (0.1-0.6) K/mm3 Eos # (Auto) (0-0.3) K/mm3 Baso # (Auto) (0.0-0.1) K/mm3 Abs Immat Gran (auto) (0.00-0.031) K/mm3 Absolute Neuts (auto) (1.3-6.7) K/mm3 Absolute Nucleated RBC (0.0-0.012) K/mm3 Nucleated RBC % (0.0-0.2) % % Immature Plt Fraction (0.9-11.2) % PT (11.1-14.7) Seconds INR APTT (22.3-36.8) Seconds Sodium (137-145) mmol/L Potassium (3.4-5.0) mmol/L Chloride (98-107) mmol/L Carbon Dioxide (22-30) mmol/L Anion Gap (4-12) mmol/L BUN (9-20) mg/dL Creatinine (0.7-1.3) mg/dL Estim Creat Clear Calc ml/min Estimated GFR (59 - ) Glucose (65-110) mg/dL Calcium (8.4-10.2) mg/dL Total Bilirubin (0.2-1.3) mg/dL AST (17-59) U/L ALT (6-50) U/L Alkaline Phosphatase (38-126) U/L Total Protein (6.3-8.2) g/dL Albumin (3.5-5.1) g/dL Urine Color Yellow (Yellow) Urine Appearance Turbid H (Clear) Urine pH 5.5 (5.0-9.0) Ur Specific [place] 1.012 (1.001-1.035) Urine Protein 1+ H (Negative) mg/dL Urine Glucose (UA) Negative (Negative) mg/dL Urine Ketones Negative (Negative) mg/dL Ur Blood (Man) 1+ H (Negative) Urine Nitrate Negative (Negative) Urine Bilirubin Negative (Negative) Urine Urobilinogen 0.2 (<2.0) mg/dL Add Ur Microanalysis Reviewed Leukocyte Esterase Rfl 3+ H (Negative) ANH/UL Urine RBC 0-2 (0-2) /hpf Urine WBC >100 H (0-3) /hpf Ur Squamous Epith Cells Occasional (Few) /hpf Urine Bacteria None seen /hpf Urine Casts 6-10 Urine Yeast (Budding) Present H (None) /hpf Influenza A (RT-PCR) (Negative) Influenza B (RT-PCR) (Negative) RSV (RT-PCR) (Negative) SARS-CoV-2 RNA (RT-PCR) (Negative) Imaging Data Radiologist's impression: Impressions Head CT 05/19/24 14:25 Impression: No intracranial hemorrhage, mass, or acute infarct. 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 Atrophy and chronic white matter changes, as above. Chest X-Ray 05/19/24 14:32 IMPRESSION: Cardiomegaly with prominent michelle. Possible sliding hiatus hernia. Bibasilar prominent markings which may indicate bronchitis. Discharge Plan Discharge Clinical Impression: Acute UTI, AMS (altered mental status) Patient Disposition: Still a Patient Condition: Serious
--- NOTE | 2024-05-19 16:05 | P.HP_ITS ---
H&P: HPI History of Present Illness Date/Time: 05/19/24 16:05 Chief Complaint: AMS Narrative: This is an 88-year-old male with a significant past medical history of dementia, CHF, chronic kidney disease, former smoker who presented to the hospital for evaluation of altered mental status. Patient is confused and unable to give me any history of presenting illness. Most of history of presenting illness was obtained from the EMR. Patient lives at home with family and reported worsening altered mental status. 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 Chest x-ray showed cardiomegaly, possible sliding hiatus hernia, bronchitis. Review of Systems Review of Systems: ROS unobtainable: Yes unobtainable due to mental status PMFSH Past Medical History Medical History Hyperlipidemia Acute on chronic anemia 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 Congestive heart failure Acute kidney injury superimposed on CKD Delirium due to general medical condition Altered mental status Acute UTI Dementia Family History Family History Other Unknown family medical history Social History Social History Smoking status: Former smoker Alcohol intake: never Substance use: never Substance use type: does not use Do You Feel Safe in your Home?: Yes Lack of Transportation: No Lack of Food: Never True Current Housing: I Have Housing Concerned About Future Housing: No Difficulty Paying Gas/Electric Bills: No Difficulty Paying for Meds: No Currently Unemployed: No Education: High School Diploma/GED Difficulty w/ Childcare or Family Care: No Spiritual care concerns: No Meds Home Medications and Allergies Home Medications ?Medication ?Instructions ?Recorded ?Confirmed ?Type finasteride 5 mg tablet 5 mg PO DAILY #30 tabs 07/11/22 05/19/24 Rx escitalopram oxalate 10 mg tablet 10 mg PO HS 08/08/22 05/19/24 History ferrous sulfate 325 mg (65 mg 325 mg PO DAILY 08/08/22 05/19/24 History iron) tablet pravastatin 40 mg tablet 40 mg PO HS 08/08/22 05/19/24 History sodium bicarbonate 650 mg tablet 650 mg PO BID 08/08/22 05/19/24 History tamsulosin 0.4 mg capsule 0.4 mg PO BID 08/08/22 05/19/24 History polyethylene glycol 3350 17 gram 17 g PO QAM #30 ea 11/30/22 05/19/24 Rx oral powder packet (Miralax) amlodipine 5 mg tablet (Norvasc) 5 mg PO DAILY 05/02/24 05/19/24 History aspirin 81 mg tablet 81 mg PO DAILY 05/02/24 05/19/24 History hydrocodone 5 mg-acetaminophen 325 1 tablet PO Q12H 05/02/24 05/19/24 History mg tablet pantoprazole 40 mg tablet,delayed 40 mg PO DAILY 05/02/24 05/19/24 History release amoxicillin 875 mg-potassium 1 tablet PO Q12H #12 tabs 05/05/24 05/19/24 Rx clavulanate 125 mg tablet doxycycline hyclate 100 mg tablet 100 mg PO Q12HR #11 tabs 05/05/24 05/19/24 Rx fluconazole 100 mg tablet 200 mg (2 x 100 mg) PO QAM #25 tabs 05/05/24 05/19/24 Rx (Diflucan) furosemide 20 mg tablet (Lasix) 20 mg PO DAILY #30 tabs 05/05/24 05/19/24 Rx sennosides 8.6 mg-docusate sodium 1 tab-cap PO HS #30 tabs 05/05/24 05/19/24 Rx 50 mg tablet (Senokot-S) Allergies Allergy/AdvReac Type Severity Reaction Status Date / Time No Known Allergies Allergy Verified 05/19/24 13:16 Vital Signs Vital Signs - 24 hr 05/19/24 13:01 Temperature 97.8 F Pulse Rate 79 Respiratory Rate 18 Blood Pressure 139/77 Pulse Oximetry 100 Oxygen Delivery Room Air Exam Narrative: General: In no acute distress, well nourished Head: atraumatic, no encephalopathy Eyes: PERRLA, sclera clear ENT: moist mucous membranes, nasal passages clear Neck: supple, no JVD, no adenopathy, trachea midline Cardiac: Normal S1 and S2. No murmur, gallops or friction rubs, peripheral pulses intact. Respiratory: Lungs clear to auscultation, no adventitious lung sounds, currently on room air Gastrointestinal: soft, non-distended, non-tender, normoactive bowel sounds. : voiding without difficulty. Extremities: moves all extremities well, no edema Skin: clean, dry, intact. No wounds or lesions. Neuro: Alert and confused H&P: Results Labs Labs: Short CBC 05/19/24 Range/Units 14:11 WBC 5.2 (4.5-10.0) K/mm3 Hgb 9.1 L (14.0-18.0) g/dL Hct 28.1 L (42.0-52.0) % Plt Count 124 L (150-375) k/mm3 BMP 05/19/24 14:10 Sodium 140 Potassium 3.5 Chloride 104 Carbon Dioxide 27 BUN 30 H Creatinine 2.36 H Glucose 98 Calcium 9.8 Liver Function 05/19/24 Range/Units 14:10 Total Bilirubin 0.4 (0.2-1.3) mg/dL AST 19 (17-59) U/L ALT 10 (6-50) U/L Alkaline Phosphatase 87 (38-126) U/L Albumin 3.5 (3.5-5.1) g/dL Urine 05/19/24 Range/Units 14:46 Urine Color Yellow (Yellow) Urine Appearance Turbid H (Clear) Urine pH 5.5 (5.0-9.0) Ur Specific [place] 1.012 (1.001-1.035) Urine Protein 1+ H (Negative) mg/dL Urine Glucose (UA) Negative (Negative) mg/dL Imaging CT scan - head: Radiologist's impression: CT head without contrast Indication: Altered mental status COMPARISON: 05/01/2024 Technique: Serial scans were obtained through the brain without the administration of contrast. Dose reduction technique was used on this scan by utilizing automated exposure control and iterative reconstruction technique. The dose-length product (DLP) was 681.00 mGy-cm. Findings: There is no evidence of intracranial hemorrhage, mass lesion, or acute infarct. 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 The ventricles and subarachnoid spaces are dilated, consistent with moderate atrophy. Low attenuation regions are seen within the periventricular white matter bilaterally, likely representing changes from chronic microvascular ischemic disease. There is no evidence of edema, mass effect or midline shift. The visualized paranasal sinuses and mastoid air cells are clear. Left frontoparietal craniotomy unchanged. Impression: No intracranial hemorrhage, mass, or acute infarct. 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 Atrophy and chronic white matter changes, as above. Reviewed, dictated and finalized at location M. Chest x-ray: Radiologist's impression: XR chest 1V Ordering provider: Emery Álvarez MD History: 88 years Male with . AMS . Comparison: May 01, 2024 FINDINGS: MEDIASTINUM: The cardiac silhouette is moderately enlarged. Prominent michelle. Opacity in the inferior mediastinum which may indicate sliding hiatus hernia. LUNGS: No infiltrates, effusions or pneumothorax. Prominent markings in the lower lobes. Nodules in the right upper lobe unchanged from previous examination. OTHER: No free air under the diaphragm. IMPRESSION: Cardiomegaly with prominent michelle. Possible sliding hiatus hernia. Bibasilar prominent markings which may indicate bronchitis. Reviewed, dictated and finalized at location A. Assessment and Plan Assessment and plan (1) Altered mental status: Code(s): R41.82 - Altered mental status, unspecified Status: Acute Assessment and Plan: likely secondary to urinary tract infection versus dementia * continue neuro checks * head CT was negative for any acute intracranial process, showed stable chronic infarct in the left anterior cerebral artery, atrophy and chronic white matter changes (2) Acute UTI: Code(s): N39.0 - Urinary tract infection, site not specified Status: Acute Assessment and Plan: * UA showed turbid urine appearance, 1+ urine protein, 1+ urine blood, 3+ leukocyte, greater than 100 urine WBC, yeast present, 6-10 urine cast. * Urine culture was obtained and pending * patient was given a dose of Rocephin while in the ED * will change to meropenem due to resistance in the past (3) BPH (benign prostatic hyperplasia): Code(s): N40.0 - Benign prostatic hyperplasia without lower urinary tract symptoms Status: Acute Assessment and Plan: * continue finasteride and tamsulosin (4) Chronic kidney disease, stage IV (severe): Code(s): N18.4 - Chronic kidney disease, stage 4 (severe) Status: Chronic Assessment and Plan: * creatinine 2.36, EGFR 26 * appears to be at baseline * continue to trend (5) Congestive heart failure: Qualifiers: Heart failure chronicity: acute on chronic Heart failure type: armida schmitz Qualified Code(s): I50.33 - Acute on chronic diastolic (congestive) heart failure Code(s): I50.9 - Heart failure, unspecified Status: Acute Assessment and Plan: * echocardiogram done on 08/22/2022 showed normal LV systolic function with an estimated EF of 50-55%, grade 1 diastolic dysfunction, severe aortic valve calcification, moderate mitral valve regurgitation * continue Lasix (6) Hypertension: Code(s): I10 - Essential (primary) hypertension Status: Acute Assessment and Plan: * blood pressure ranging 138/79 to 150/84 * continue amlodipine (7) Hyperlipidemia: Code(s): E78.5 - Hyperlipidemia, unspecified Status: Acute Assessment and Plan: * continue aspirin and pravastatin Quality VTE Prophylaxis VTE prophylaxis: pharmacologic ordered Hospitalist MIPS Advance Care Plan I have confirmed that the patient's Advanced Care Plan is present, code status is documented, or surrogate decision maker is listed in patient medical record.: Yes Medication Reconciliation I have utilized all available resources to obtain, update and review the patients current medications (includes all prescriptions, OTC, herbals, cannabis, and nutritional supplements).: Yes
[2024-05-19 17:14] VITALS: BP 118/69; PULSE 79; RESP 16; TEMP 36.6; O2SAT 99
--- NOTE | 2024-05-19 17:36 | PC.NURSE ---
Pt incontinent of stool. Fidencio care given. Noted during fidencio care head os penis posterior red pressure sore
[2024-05-19] MEDS: MEROPENEM 1 GM/NS 100 ML 1 GM/100 ML BAG IVPB (17:45)
[2024-05-19 17:50] VITALS: BP 123/80; PULSE 79; RESP 16; TEMP 36.6; O2SAT 97
--- NOTE | 2024-05-19 17:53 | ADMGEN ---
This patient, Karl Thompson, was admitted to Virtual Bed 3rd Floor-1. Patient/family oriented to hospital policies and general routines including ID bracelet, bed and alarms, visiting hours, pain management, procedures, bathroom and other care routines, personal items, smoking policy, room service/diet, and visiting hours. Information on how to activate the Rapid Response Team has been discussed. Patient/Family are encouraged to report perceived risks to care and to ask questions if they do not understand what they are told or what they should do.
[2024-05-19 18:00] VITALS: BP 118/89; PULSE 74; RESP 20; TEMP 37; O2SAT 100; O2SAT 97
--- NOTE | 2024-05-19 18:20 | PC.NURSE ---
Medical history provided per telephone by Yecenia Zimmerman, Granddaughter. Granddaughter is primary caregiver for patient.
[2024-05-19 19:54] VITALS: PULSE 74; RESP 20; O2SAT 100
[2024-05-19] MEDS: ESCITALOPRAM OXALATE 10 MG TABLET PO (20:31)
[2024-05-19] MEDS: SENNA/DOCUSATE SODIUM TABLET 1 TAB PO (20:32)
[2024-05-19] MEDS: PRAVASTATIN SODIUM 20 MG TABLET 40 MG PO (20:32)
[2024-05-19 21:36] VITALS: BP 115/59; PULSE 18; RESP 75; TEMP 36.6; O2SAT 97
[2024-05-20] MEDS: MEROPENEM 1 GM/NS 100 ML 1 GM/100 ML BAG IVPB ×2 (05:35→18:02)
[2024-05-20 05:41] VITALS: BP 129/66; PULSE 73; RESP 18; TEMP 36.5; O2SAT 98
[2024-05-20 06:51] LABS: Basophils Absolute Auto 0.1 K/mm3 (0.0-0.1); Basophils Percent Auto 1.1 % (0.2-1.2); Eosinophils Absolute Auto 0.3 K/mm3 (0-0.3); Eosinophils Percent Auto 5.5 % (0-4.4); Hematocrit 29.2 % (42.0-52.0); Hemoglobin 9.1 g/dL (14.0-18.0); Immature Granulocyte Absolute 0.02 K/mm3 (0.00-0.031); Immature Granulocyte Percent A 0.4 % (0-0.5); Immature Platelet Fraction Pct 3.5 % (0.9-11.2); Lymphocytes Absolute Auto 1.21 K/mm3 (0.9-3.2); Lymphocytes Percent Auto 21.4 % (18.3-44.2); Mean Corpuscular HGB Conc 31.2 g/dl (32-36); Mean Corpuscular Hemoglobin 31.6 pg (26-34); Mean Corpuscular Volume 101.4 fl (80-100); Mean Platelet Volume 10.7 fl (7.4-10.4); Monocytes Absolute Auto 0.7 K/mm3 (0.1-0.6); Monocytes Percent Auto 11.7 % (2.6-8.5); Neutrophils Absolute Auto 3.4 K/mm3 (1.3-6.7); Neutrophils Percent Auto 59.9 % (45.5-73.1); Platelet Count Result 123 k/mm3 (150-375); Red Blood Count 2.88 M/mm3 (4.6-6.20); Red Cell Distribution Width 13.5 % (11.5-14.5); White Blood Count 5.7 K/mm3 (4.5-10.0)
[2024-05-20 07:03] LABS: Alanine Aminotransferase 9 U/L (6-50); Albumin Level 3.4 g/dL (3.5-5.1); Alkaline Phosphatase 81 U/L (38-126); Anion Gap 10 mmol/L (4-12); Aspartate Amino Transferase 19 U/L (17-59); Bilirubin,Total 0.4 mg/dL (0.2-1.3); Blood Urea Nitrogen 31 mg/dL (9-20); Calcium 10.1 mg/dL (8.4-10.2); Carbon Dioxide 23 mmol/L (22-30); Chloride 107 mmol/L (98-107); Estimated CRCL calculation 23 ml/min; Estimated Glomerular Filt Rate 30; Glucose 86 mg/dL (65-110); Magnesium 1.8 mg/dL (1.6-2.3); Potassium 3.7 mmol/L (3.4-5.0); Sodium 140 mmol/L (137-145)
[2024-05-20] MEDS: PANTOPRAZOLE 40 MG TABLET PO (09:01)
[2024-05-20] MEDS: TAMSULOSIN HCL 0.4 MG CAPSULE PO ×2 (09:01→20:12)
[2024-05-20] MEDS: FERROUS SULFATE 325 MG TABLET DR BY MOUTH (09:01)
[2024-05-20] MEDS: polyethylene glycoL 3350 17 GM POWD.PACK PO (09:01)
[2024-05-20] MEDS: amLODIPine BESYLATE 5 MG TABLET PO (09:01)
[2024-05-20] MEDS: ASPIRIN 81 MG CHEWABLE TABLET PO (09:01)
[2024-05-20] MEDS: FINASTERIDE 5 MG TABLET PO (09:01)
[2024-05-20] MEDS: FUROSEMIDE 20 MG TABLET PO (09:01)
[2024-05-20] MEDS: ENOXAPARIN 30 MG/0.3 ML SYRINGE SUB-Q (09:02)
--- NOTE | 2024-05-20 12:17 | P.PNIM_ITS ---
Progress Note: A&P Assessment and Plan (1) Altered mental status: Code(s): R41.82 - Altered mental status, unspecified Status: Acute Assessment and Plan: likely secondary to urinary tract infection versus dementia * continue neuro checks * head CT was negative for any acute intracranial process, showed stable chronic infarct in the left anterior cerebral artery, atrophy and chronic white matter changes 05/20 * No change to current treatment plan (2) Acute UTI: Code(s): N39.0 - Urinary tract infection, site not specified Status: Acute Assessment and Plan: * UA showed turbid urine appearance, 1+ urine protein, 1+ urine blood, 3+ leukocyte, greater than 100 urine WBC, yeast present, 6-10 urine cast. * Urine culture was obtained and pending * patient was given a dose of Rocephin while in the ED * will change to meropenem due to resistance in the past 05/20 * Urine culture still pending * Continue with Meropenem (3) BPH (benign prostatic hyperplasia): Code(s): N40.0 - Benign prostatic hyperplasia without lower urinary tract symptoms Status: Acute Assessment and Plan: * continue finasteride and tamsulosin 05/20 * No change (4) Chronic kidney disease, stage IV (severe): Code(s): N18.4 - Chronic kidney disease, stage 4 (severe) Status: Chronic Assessment and Plan: * creatinine 2.36, EGFR 26 * appears to be at baseline * continue to trend 05/20 * No change (5) Congestive heart failure: Qualifiers: Heart failure chronicity: acute on chronic Heart failure type: diastolic Qualified Code(s): I50.33 - Acute on chronic diastolic (congestive) heart failure Code(s): I50.9 - Heart failure, unspecified Status: Acute Assessment and Plan: * echocardiogram done on 08/22/2022 showed normal LV systolic function with an estimated EF of 50-55%, grade 1 diastolic dysfunction, severe aortic valve calcification, moderate mitral valve regurgitation * continue Lasix 05/20 * No change (6) Hypertension: Code(s): I10 - Essential (primary) hypertension Status: Acute Assessment and Plan: * blood pressure ranging 138/79 to 150/84 * continue amlodipine 05/20 * No change (7) Hyperlipidemia: Code(s): E78.5 - Hyperlipidemia, unspecified Status: Acute Assessment and Plan: * continue aspirin and pravastatin 05/20 * No change Time Spent With Patient Time with patient: 25 - 35 minutes Subjective Date/time seen: 05/20/24 12:17 Interval history: Interval history: This is an 88-year-old male with a significant past medical history of dementia, CHF, chronic kidney disease, former smoker who presented to the hospital for evaluation of altered mental status. Patient is confused and unable to give me any history of presenting illness. Most of history of presenting illness was obtained from the EMR. Patient lives at home with family and reported worsening altered mental status. 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 Chest x-ray showed cardiomegaly, possible sliding hiatus hernia, bronchitis. Subjective: Patient is still confused and oriented x1. Labs and imaging reviewed. Review of Systems Review of Systems: All systems reviewed & are unremarkable except as noted in HPI and below ROS unobtainable: Yes unobtainable due to mental status Exam Narrative: General: In no acute distress, malnourished Cardiac: Normal S1 and S2. Murmur noted, no gallops or friction rubs, peripheral pulses intact. Respiratory: Lungs clear to auscultation, no adventitious lung sounds, currently on room air Gastrointestinal: soft, non-distended, non-tender, normoactive bowel sounds. : voiding without difficulty. Extremities: moves all extremities well, no edema Skin: clean, dry, intact. No wounds or lesions. Neuro: Alert to voice and confused Objective Data Vital Signs Vital Signs: Vital Signs - 24 hr 05/19/24 13:01 05/19/24 17:14 05/19/24 17:50 Temperature 97.8 F 97.9 F 97.9 F Pulse Rate 79 79 79 Respiratory Rate 18 16 16 Blood Pressure 139/77 118/69 123/80 Pulse Oximetry 100 99 97 Oxygen Delivery Room Air 05/19/24 18:00 05/19/24 18:00 05/19/24 19:54 Temperature 98.6 F Pulse Rate 74 74 Respiratory Rate 20 20 Blood Pressure 118/89 Pulse Oximetry 97 100 100 Oxygen Delivery Room Air Room Air 05/19/24 21:36 05/20/24 05:41 Temperature 97.8 F 97.7 F Pulse Rate 18 L 73 Respiratory Rate 75 H 18 Blood Pressure 115/59 L 129/66 Pulse Oximetry 97 98 Oxygen Delivery Intake/Output Intake/Output: Intake & Output 05/17/24 05/18/24 05/19/24 05/20/24 23:59 23:59 23:59 23:59 Intake Total 150 240 Output Total 100 Balance 50 240 Meds/Results Medications: Active Medications Generic Name Dose Route Start Last Admin Trade Name Freq PRN Reason Stop Dose Admin Acetaminophen 650 mg 05/19/24 16:36 Acetaminophen 325 Mg Tablet PO Q4H PRN Mild Pain (1-3) or Fever Amlodipine Besylate 5 mg 05/20/24 09:00 05/20/24 09:01 Amlodipine Besylate 5 Mg Tablet PO 5 mg DAILY JEAN-PIERRE Administration Aspirin 81 mg 05/20/24 08:00 05/20/24 09:01 Aspirin 81 Mg Chewable Tablet PO 81 mg DAILY@0800 JEAN-PIERRE Administration Enoxaparin Sodium 30 mg 05/20/24 09:00 05/20/24 09:02 Enoxaparin 30 Mg/0.3 Ml Syringe SUB-Q 30 mg DAILY JEAN-PIERRE Administration Escitalopram Oxalate 10 mg 05/19/24 21:00 05/19/24 20:31 Escitalopram Oxalate 10 Mg Tablet PO 10 mg HS JEAN-PIERRE Administration Ferrous Sulfate 325 mg 05/20/24 09:00 05/20/24 09:01 Ferrous Sulfate [address] BY MOUTH 325 mg DAILY JEAN-PIERRE Administration Finasteride 5 mg 05/20/24 09:00 05/20/24 09:01 Finasteride 5 Mg Tablet PO 5 mg DAILY JEAN-PIERRE Administration Furosemide 20 mg 05/20/24 09:00 05/20/24 09:01 Furosemide 20 Mg Tablet PO 20 mg DAILY JEAN-PIERRE Administration Meropenem 1 gm in 100 mls @ 200 mls/hr 05/19/24 17:00 05/20/24 05:35 IVPB 200 mls/hr Q12H JEAN-PIERRE Administration Ondansetron HCl 4 mg 05/19/24 16:36 Ondansetron Inj 4 Mg/2 Ml Vial IV PUSH Q6H PRN Nausea And Vomiting Pantoprazole Sodium 40 mg 05/20/24 09:00 05/20/24 09:01 Pantoprazole 40 Mg Tablet PO 40 mg DAILY JEAN-PIERRE Administration Polyethylene Glycol 17 gm 05/20/24 09:00 05/20/24 09:01 Polyethylene Glycol 3350 17 Gm Powd.Pack PO 17 gm QAM JEAN-PIERRE Administration Pravastatin Sodium 40 mg 05/19/24 21:00 05/19/24 20:32 Pravastatin Sodium 20 Mg Tablet PO 40 mg HS JEAN-PIERRE Administration Senna/Docusate Sodium 1 tab 05/19/24 21:00 05/19/24 20:32 Senna/Docusate Sodium Tablet PO 1 tab HS JEAN-PIERRE Administration Tamsulosin HCl 0.4 mg 05/20/24 09:00 05/20/24 09:01 Tamsulosin Hcl 0.4 Mg Capsule PO 0.4 mg Q12HR JEAN-PIERRE Administration Radiology Results: ITS Impressions Head CT 05/19/24 14:25 Impression: No intracranial hemorrhage, mass, or acute infarct. 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 Atrophy and chronic white matter changes, as above. Chest X-Ray 05/19/24 14:32 IMPRESSION: Cardiomegaly with prominent michelle. Possible sliding hiatus hernia. Bibasilar prominent markings which may indicate bronchitis. Labs Labs: Laboratory Results - last 24 hr 05/19/24 05/19/24 05/19/24 14:10 14:11 14:32 WBC 5.2 RBC 2.84 L Hgb 9.1 L Hct 28.1 L MCV 98.9 MCH 32.0 MCHC 32.4 RDW 13.4 Plt Count 124 L MPV 10.5 H Immature Gran % (Auto) 0.2 Neut % (Auto) 63.6 Lymph % (Auto) 20.7 Maury % (Auto) 8.6 H Eos % (Auto) 5.9 H Baso % (Auto) 1.0 Lymph # (Auto) 1.08 Maury # (Auto) 0.5 Eos # (Auto) 0.3 Baso # (Auto) 0.1 Abs Immat Gran (auto) 0.01 Absolute Neuts (auto) 3.3 Absolute Nucleated RBC 0.000 Nucleated RBC % 0.0 % Immature Plt Fraction 3.6 PT 14.2 INR 1.1 APTT 26.2 Sodium 140 Potassium 3.5 Chloride 104 Carbon Dioxide 27 Anion Gap 9 BUN 30 H Creatinine 2.36 H Estim Creat Clear Calc 20 Estimated GFR 26 L Glucose 98 Calcium 9.8 Magnesium Total Bilirubin 0.4 AST 19 ALT 10 Alkaline Phosphatase 87 Total Protein 7.0 Albumin 3.5 TSH Urine Color Urine Appearance Urine pH Ur Specific [place] Urine Protein Urine Glucose (UA) Urine Ketones Ur Blood (Man) Urine Nitrate Urine Bilirubin Urine Urobilinogen Add Ur Microanalysis Leukocyte Esterase Rfl Urine RBC Urine WBC Ur Squamous Epith Cells Urine Bacteria Urine Casts Urine Yeast (Budding) Influenza A (RT-PCR) Negative Influenza B (RT-PCR) Negative RSV (RT-PCR) Negative SARS-CoV-2 RNA (RT-PCR) Negative 05/19/24 05/20/24 14:46 06:33 WBC 5.7 RBC 2.88 L Hgb 9.1 L Hct 29.2 L MCV 101.4 H MCH 31.6 MCHC 31.2 L RDW 13.5 Plt Count 123 L MPV 10.7 H Immature Gran % (Auto) 0.4 Neut % (Auto) 59.9 Lymph % (Auto) 21.4 Maury % (Auto) 11.7 H Eos % (Auto) 5.5 H Baso % (Auto) 1.1 Lymph # (Auto) 1.21 Maury # (Auto) 0.7 H Eos # (Auto) 0.3 Baso # (Auto) 0.1 Abs Immat Gran (auto) 0.02 Absolute Neuts (auto) 3.4 Absolute Nucleated RBC 0.000 Nucleated RBC % 0.0 % Immature Plt Fraction 3.5 PT INR APTT Sodium 140 Potassium 3.7 Chloride 107 Carbon Dioxide 23 Anion Gap 10 BUN 31 H Creatinine 2.11 H Estim Creat Clear Calc 23 Estimated GFR 30 L Glucose 86 Calcium 10.1 Magnesium 1.8 Total Bilirubin 0.4 AST 19 ALT 9 Alkaline Phosphatase 81 Total Protein 6.0 L Albumin 3.4 L TSH 3.910 Urine Color Yellow Urine Appearance Turbid H Urine pH 5.5 Ur Specific Aurora 1.012 Urine Protein 1+ H Urine Glucose (UA) Negative Urine Ketones Negative Ur Blood (Man) 1+ H Urine Nitrate Negative Urine Bilirubin Negative Urine Urobilinogen 0.2 Add Ur Microanalysis Reviewed Leukocyte Esterase Rfl 3+ H Urine RBC 0-2 Urine WBC >100 H Ur Squamous Epith Cells Occasional Urine Bacteria None seen Urine Casts 6-10 Urine Yeast (Budding) Present H Influenza A (RT-PCR) Influenza B (RT-PCR) RSV (RT-PCR) SARS-CoV-2 RNA (RT-PCR) Quality VTE Prophylaxis VTE prophylaxis: pharmacologic ordered
[2024-05-20 12:54] VITALS: BMI 21.2
[2024-05-20 13:36] VITALS: BP 127/73; PULSE 85; RESP 20; TEMP 36.6; O2SAT 98
[2024-05-20 19:25] VITALS: PULSE 85; RESP 20; O2SAT 98
[2024-05-20] MEDS: ESCITALOPRAM OXALATE 10 MG TABLET PO (20:12)
[2024-05-20] MEDS: PRAVASTATIN SODIUM 20 MG TABLET 40 MG PO (20:12)
[2024-05-20] MEDS: SENNA/DOCUSATE SODIUM TABLET 1 TAB PO (20:12)
[2024-05-20 21:31] VITALS: BP 152/79; PULSE 73; RESP 18; TEMP 37.1; O2SAT 100
[2024-05-21 04:34] VITALS: BP 144/62; PULSE 78; RESP 18; TEMP 36.8; O2SAT 96
[2024-05-21] MEDS: MEROPENEM 1 GM/NS 100 ML 1 GM/100 ML BAG IVPB (05:32)
[2024-05-21 06:29] LABS: Basophils Percent Auto 0.7 % (0.2-1.2); Eosinophils Absolute Auto 0.3 K/mm3 (0-0.3); Eosinophils Percent Auto 5.8 % (0-4.4); Hematocrit 26.7 % (42.0-52.0); Hemoglobin 8.5 g/dL (14.0-18.0); Immature Granulocyte Absolute 0.03 K/mm3 (0.00-0.031); Immature Granulocyte Percent A 0.5 % (0-0.5); Lymphocytes Absolute Auto 0.81 K/mm3 (0.9-3.2); Lymphocytes Percent Auto 13.9 % (18.3-44.2); Mean Corpuscular HGB Conc 31.8 g/dl (32-36); Mean Corpuscular Hemoglobin 31.8 pg (26-34); Mean Platelet Volume 10.2 fl (7.4-10.4); Monocytes Absolute Auto 0.7 K/mm3 (0.1-0.6); Monocytes Percent Auto 12.3 % (2.6-8.5); Neutrophils Absolute Auto 3.9 K/mm3 (1.3-6.7); Neutrophils Percent Auto 66.8 % (45.5-73.1); Platelet Count Result 116 k/mm3 (150-375); Red Blood Count 2.67 M/mm3 (4.6-6.20); Red Cell Distribution Width 13.5 % (11.5-14.5); White Blood Count 5.8 K/mm3 (4.5-10.0)
[2024-05-21 08:28] LABS: Alanine Aminotransferase 10 U/L (6-50); Albumin Level 3.1 g/dL (3.5-5.1); Alkaline Phosphatase 74 U/L (38-126); Anion Gap 8 mmol/L (4-12); Aspartate Amino Transferase 16 U/L (17-59); Bilirubin,Total 0.4 mg/dL (0.2-1.3); Blood Urea Nitrogen 35 mg/dL (9-20); Calcium 9.8 mg/dL (8.4-10.2); Carbon Dioxide 25 mmol/L (22-30); Chloride 107 mmol/L (98-107); Estimated CRCL calculation 21 ml/min; Estimated Glomerular Filt Rate 27; Glucose 103 mg/dL (65-110); Potassium 3.7 mmol/L (3.4-5.0); Sodium 140 mmol/L (137-145)
[2024-05-21 10:10] VITALS: O2SAT 96
[2024-05-21 10:19] VITALS: BMI 10.0
[2024-05-21] MEDS: polyethylene glycoL 3350 17 GM POWD.PACK PO (10:21)
[2024-05-21] MEDS: FERROUS SULFATE 325 MG TABLET DR BY MOUTH (10:21)
[2024-05-21] MEDS: ASPIRIN 81 MG CHEWABLE TABLET PO (10:21)
[2024-05-21] MEDS: amLODIPine BESYLATE 5 MG TABLET PO (10:21)
--- NOTE | 2024-05-21 10:21 | PCSTNOTE ---
Please refer to the Bedside Swallow Evaluation in the EMR. Please note, silent aspiration cannot be ruled out at bedside. Pt above pleasantly confused pt was seen for a swallow evaluation at the bedside. Oral mucosa is normal/slightly dry; pt was wearing full upper and lower dentures which appeared to be of good fit. Cursory oral motor exam revealed lingual and labial structures to be normal. He was able to dry swallow on command and exhibited clear vocal quality. Pt was positioned upright in the bed for an optimal feeding position. He was tested with ice chips, thin liquids, pudding, and cracker in controlled amounts; thin liquids were also tested in uncontrolled amounts via a cup and a straw. The oral stages appeared WNL. No oral leakage or pocketing was noted. During the pharyngeal stage, swallow reflex appeared prompt & laryngeal elevation adequate. No overt s/s of aspiration were exhibited except with the straw drinking of thin liquids which resulted in coughing. With repeated cup sip trials, again no overt s/s of aspiration were exhibited. Impression: functional swallow of all trials except thin liquid when taken via a straw. No other overt s/s of aspiration were exhibited. Recommendations: regular diet with regular liquids; no straws; OOB for meals is optimal. Notify ST is further difficulty develops. RN informed.
[2024-05-21] MEDS: FUROSEMIDE 20 MG TABLET PO (10:22)
[2024-05-21] MEDS: ENOXAPARIN 30 MG/0.3 ML SYRINGE SUB-Q (10:22)
[2024-05-21] MEDS: FINASTERIDE 5 MG TABLET PO (10:22)
[2024-05-21] MEDS: PANTOPRAZOLE 40 MG TABLET PO (10:22)
[2024-05-21] MEDS: TAMSULOSIN HCL 0.4 MG CAPSULE PO ×2 (10:22→20:23)
[2024-05-21 14:00] VITALS: BP 140/78; PULSE 74; RESP 18; TEMP 37.1; O2SAT 98
[2024-05-21 15:05] VITALS: BMI 10.0
--- NOTE | 2024-05-21 18:32 | P.PNIM_ITS ---
Progress Note: A&P Assessment and Plan (1) Altered mental status: Code(s): R41.82 - Altered mental status, unspecified Status: Acute Assessment and Plan: likely secondary to urinary tract infection versus dementia * Urine culture was negative * Meropenem discontinued * continue neuro checks * After speaking with granddaughter, we will go ahead and get MRI of brain and brain stem to rule out stroke * Apnea link ordered to assess for sleep apnea. (2) Acute UTI: Code(s): N39.0 - Urinary tract infection, site not specified Status: Acute Assessment and Plan: * UA showed turbid urine appearance, 1+ urine protein, 1+ urine blood, 3+ leukocyte, greater than 100 urine WBC, yeast present, 6-10 urine cast. * Urine culture was obtained and pending * patient was given a dose of Rocephin while in the ED which was chagned to meropenem due to resistance in the past * 05/21/24 Urine culture was negative. * 05/21/24 Meropenem discontinued (3) BPH (benign prostatic hyperplasia): Code(s): N40.0 - Benign prostatic hyperplasia without lower urinary tract symptoms Status: Acute Assessment and Plan: * continue finasteride and tamsulosin 05/20 * No change (4) Chronic kidney disease, stage IV (severe): Code(s): N18.4 - Chronic kidney disease, stage 4 (severe) Status: Chronic Assessment and Plan: * creatinine 2.36, EGFR 26 * appears to be at baseline * continue to trend (5) Congestive heart failure: Qualifiers: Heart failure type: diastolic Heart failure chronicity: acute on chronic Qualified Code(s): I50.33 - Acute on chronic diastolic (congestive) heart failure Code(s): I50.9 - Heart failure, unspecified Status: Acute Assessment and Plan: * echocardiogram done on 08/22/2022 showed normal LV systolic function with an estimated EF of 50-55%, grade 1 diastolic dysfunction, severe aortic valve calcification, moderate mitral valve regurgitation * continue Lasix (6) Hypertension: Code(s): I10 - Essential (primary) hypertension Status: Acute Assessment and Plan: * blood pressure ranging 138/79 to 150/84 * continue amlodipine (7) Hyperlipidemia: Code(s): E78.5 - Hyperlipidemia, unspecified Status: Acute Assessment and Plan: * continue aspirin and pravastatin Time Spent With Patient Time with patient: Greater than 35 minutes Subjective Date/time seen: 05/21/24 18:32 Interval history: Interval history: This is an 88-year-old male with a significant past medical history of dementia, CHF, chronic kidney disease, former smoker who presented to the hospital for evaluation of altered mental status. Patient is confused and unable to give me any history of presenting illness. Most of history of presenting illness was obtained from the EMR. Patient lives at home with family and reported worsening altered mental status. 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 Chest x-ray showed cardiomegaly, possible sliding hiatus hernia, bronchitis. Subjective: Patient is alert and oriented x2-3 today. He is back to his baseline mentation. I spoke with the granddaughter who is a nurse and had concerns about him returning home. She stated that the last time they sent him home, he had to turn around and come right back due to altered mental status/confusion. She states he has had a stroke in the past and was concerned about possibly having another stroke. Urine culture was negative today and meropenem was discontinued. She states that the last time he was on IV antibiotics that his mentation improved and then when he goes off the antibiotics his mentation worsens causing him to present to the ER again. Discussed getting an MRI of the brain and brain stem to rule out stroke and offered to do an Apnea link tonight to assess for NERY as a possible cause to his confusion. Grand daughter is agreeable to this plan of care and we will touch base again tomorrow regarding discharge planning. Labs reviewed. Review of Systems Review of Systems: All systems reviewed & are unremarkable except as noted in HPI and below ROS unobtainable: Yes unobtainable due to mental status Exam Narrative: General: In no acute distress, malnourished Cardiac: Normal S1 and S2. Murmur noted, no gallops or friction rubs, peripheral pulses intact. Respiratory: Lungs clear to auscultation, no adventitious lung sounds, currently on room air Gastrointestinal: soft, non-distended, non-tender, normoactive bowel sounds. : voiding without difficulty. Extremities: moves all extremities well, no edema Skin: clean, dry, intact. No wounds or lesions. Neuro: Alert and oriented x2-3. Objective Data Vital Signs Vital Signs: Vital Signs - 24 hr 05/20/24 19:25 05/20/24 21:31 05/21/24 04:34 Temperature 98.8 F 98.3 F Pulse Rate 85 73 78 Respiratory Rate 20 18 18 Blood Pressure 152/79 H 144/62 H Pulse Oximetry 98 100 96 Oxygen Delivery Room Air 05/21/24 10:10 05/21/24 10:19 Temperature Pulse Rate Respiratory Rate Blood Pressure Pulse Oximetry 96 Oxygen Delivery Room Air Room Air Intake/Output Intake/Output: Intake & Output 05/18/24 05/19/24 05/20/24 05/21/24 23:59 23:59 23:59 23:59 Intake Total 150 1180 340 Output Total 100 0 600 Balance 50 1180 -260 Meds/Results Medications: Active Medications Generic Name Dose Route Start Last Admin Trade Name Freq PRN Reason Stop Dose Admin Acetaminophen 650 mg 05/19/24 16:36 Acetaminophen 325 Mg Tablet PO Q4H PRN Mild Pain (1-3) or Fever Amlodipine Besylate 5 mg 05/20/24 09:00 05/21/24 10:21 Amlodipine Besylate 5 Mg Tablet PO 5 mg DAILY JEAN-PIERRE Administration Aspirin 81 mg 05/20/24 08:00 05/21/24 10:21 Aspirin 81 Mg Chewable Tablet PO 81 mg DAILY@0800 JEAN-PIERRE Administration Enoxaparin Sodium 30 mg 05/20/24 09:00 05/21/24 10:22 Enoxaparin 30 Mg/0.3 Ml Syringe SUB-Q 30 mg DAILY JEAN-PIERRE Administration Escitalopram Oxalate 10 mg 05/19/24 21:00 05/20/24 20:12 Escitalopram Oxalate 10 Mg Tablet PO 10 mg HS JEAN-PIERRE Administration Ferrous Sulfate 325 mg 05/20/24 09:00 05/21/24 10:21 Ferrous Sulfate [address] BY MOUTH 325 mg DAILY JEAN-PIERRE Administration Finasteride 5 mg 05/20/24 09:00 05/21/24 10:22 Finasteride 5 Mg Tablet PO 5 mg DAILY JEAN-PIERRE Administration Furosemide 20 mg 05/20/24 09:00 05/21/24 10:22 Furosemide 20 Mg Tablet PO 20 mg DAILY JEAN-PIERRE Administration Ondansetron HCl 4 mg 05/19/24 16:36 Ondansetron Inj 4 Mg/2 Ml Vial IV PUSH Q6H PRN Nausea And Vomiting Pantoprazole Sodium 40 mg 05/20/24 09:00 05/21/24 10:22 Pantoprazole 40 Mg Tablet PO 40 mg DAILY JEAN-PIERRE Administration Polyethylene Glycol 17 gm 05/20/24 09:00 05/21/24 10:21 Polyethylene Glycol 3350 17 Gm Powd.Pack PO 17 gm QAM JEAN-PIERRE Administration Pravastatin Sodium 40 mg 05/19/24 21:00 05/20/24 20:12 Pravastatin Sodium 20 Mg Tablet PO 40 mg HS JEAN-PIERRE Administration Senna/Docusate Sodium 1 tab 05/19/24 21:00 05/20/24 20:12 Senna/Docusate Sodium Tablet PO 1 tab HS JEAN-PIERRE Administration Tamsulosin HCl 0.4 mg 05/20/24 09:00 05/21/24 10:22 Tamsulosin Hcl 0.4 Mg Capsule PO 0.4 mg Q12HR JEAN-PIERRE Administration Radiology Results: ITS Impressions Head CT 05/19/24 14:25 Impression: No intracranial hemorrhage, mass, or acute infarct. 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 Atrophy and chronic white matter changes, as above. Chest X-Ray 05/19/24 14:32 IMPRESSION: Cardiomegaly with prominent michelle. Possible sliding hiatus hernia. Bibasilar prominent markings which may indicate bronchitis. Labs Labs: Laboratory Results - last 24 hr 05/21/24 06:14 WBC 5.8 RBC 2.67 L Hgb 8.5 L Hct 26.7 L MCV 100.0 MCH 31.8 MCHC 31.8 L RDW 13.5 Plt Count 116 L MPV 10.2 Immature Gran % (Auto) 0.5 Neut % (Auto) 66.8 Lymph % (Auto) 13.9 L [place]bour % (Auto) 12.3 H Eos % (Auto) 5.8 H Baso % (Auto) 0.7 Lymph # (Auto) 0.81 L [place] # (Auto) 0.7 H Eos # (Auto) 0.3 Baso # (Auto) 0.0 Abs Immat Gran (auto) 0.03 Absolute Neuts (auto) 3.9 Absolute Nucleated RBC 0.000 Nucleated RBC % 0.0 Sodium 140 Potassium 3.7 Chloride 107 Carbon Dioxide 25 Anion Gap 8 BUN 35 H Creatinine 2.31 H Estim Creat Clear Calc 21 Estimated GFR 27 L Glucose 103 Calcium 9.8 Total Bilirubin 0.4 AST 16 L ALT 10 Alkaline Phosphatase 74 Total Protein 6.0 L Albumin 3.1 L Quality VTE Prophylaxis VTE prophylaxis: pharmacologic ordered
[2024-05-21 20:00] VITALS: PULSE 74; RESP 18; O2SAT 98
[2024-05-21] MEDS: SENNA/DOCUSATE SODIUM TABLET 1 TAB PO (20:23)
[2024-05-21] MEDS: ESCITALOPRAM OXALATE 10 MG TABLET PO (20:23)
[2024-05-21] MEDS: PRAVASTATIN SODIUM 20 MG TABLET 40 MG PO (20:23)
[2024-05-21 22:00] VITALS: BP 132/75; PULSE 79; RESP 16; TEMP 36.9; O2SAT 99
[2024-05-21 23:05] VITALS: PULSE 88; O2SAT 96
[2024-05-22 05:20] VITALS: BP 140/80; PULSE 74; RESP 16; O2SAT 98
[2024-05-22 06:16] LABS: Basophils Percent Auto 0.6 % (0.2-1.2); Eosinophils Absolute Auto 0.2 K/mm3 (0-0.3); Eosinophils Percent Auto 3.2 % (0-4.4); Hematocrit 26.6 % (42.0-52.0); Hemoglobin 8.4 g/dL (14.0-18.0); Immature Granulocyte Absolute 0.04 K/mm3 (0.00-0.031); Immature Granulocyte Percent A 0.9 % (0-0.5); Lymphocytes Absolute Auto 0.65 K/mm3 (0.9-3.2); Lymphocytes Percent Auto 14.1 % (18.3-44.2); Mean Corpuscular HGB Conc 31.6 g/dl (32-36); Mean Corpuscular Hemoglobin 32.6 pg (26-34); Mean Corpuscular Volume 103.1 fl (80-100); Mean Platelet Volume 10.7 fl (7.4-10.4); Monocytes Absolute Auto 0.6 K/mm3 (0.1-0.6); Monocytes Percent Auto 13.2 % (2.6-8.5); Neutrophils Absolute Auto 3.1 K/mm3 (1.3-6.7); Platelet Count Result 121 k/mm3 (150-375); Red Blood Count 2.58 M/mm3 (4.6-6.20); Red Cell Distribution Width 13.9 % (11.5-14.5); White Blood Count 4.6 K/mm3 (4.5-10.0)
[2024-05-22 06:26] LABS: Alanine Aminotransferase 11 U/L (6-50); Albumin Level 3.3 g/dL (3.5-5.1); Alkaline Phosphatase 73 U/L (38-126); Anion Gap 6 mmol/L (4-12); Aspartate Amino Transferase 20 U/L (17-59); Bilirubin,Total 0.4 mg/dL (0.2-1.3); Blood Urea Nitrogen 34 mg/dL (9-20); Calcium 9.6 mg/dL (8.4-10.2); Carbon Dioxide 28 mmol/L (22-30); Chloride 102 mmol/L (98-107); Estimated CRCL calculation 19 ml/min; Estimated Glomerular Filt Rate 25; Glucose 91 mg/dL (65-110); Potassium 3.8 mmol/L (3.4-5.0); Sodium 136 mmol/L (137-145)
[2024-05-22 08:00] VITALS: O2SAT 98
--- NOTE | 2024-05-22 10:21 | PCNFU ---
Nutrition Follow-Up Complete: Increased protein energy needs related to wound healing as evidenced by multiple pressure injuries Adequate intakes at least 75% meals and supplements to support wound healing - Progressing slowly. not meeting goal consistently with intakes 25-80%, mostly 50% Goal: Pt current nutrition is Heart healthy diet. Aston BID for wounds (90 kcal, 2.5 g protein with arginine and glutamine for wound support). Ensure Enlive BID (350 kcal, 20 g protein). Nutrition recommendation: No new nutrition recommendations. Continue current nutrition care plan and orders. Agree with current orders. Last recorded weight is 71.1 kg. Bowel Motility: +1 BM 05/20/24 Labs Reviewed: Hgb 8.4, Hct 26.6, Alb 3.3, Na 136, GFR 25, BUN 34, Cre 2.49 Meds Noted: Lasix, protonix, miralax, senna, zofran Skin: Deep tissue R foot; Deep tissue R buttock; Stage 3 R heel Additional Notes:Intakes are fair to good on current diet, intakes 25-80% meals, mostly 50%. Supplements are appropriate. Pt still not oriented to baseline, having brain MRI today. Continue to monitor monitoring intakes, weights, labs, supplement tolerance, plan of care Follow up in 3 days
[2024-05-22] MEDS: FINASTERIDE 5 MG TABLET PO (10:23)
[2024-05-22] MEDS: FUROSEMIDE 20 MG TABLET PO (10:23)
[2024-05-22] MEDS: amLODIPine BESYLATE 5 MG TABLET PO (10:23)
[2024-05-22] MEDS: FERROUS SULFATE 325 MG TABLET DR BY MOUTH (10:23)
[2024-05-22] MEDS: ASPIRIN 81 MG CHEWABLE TABLET PO (10:23)
[2024-05-22] MEDS: PANTOPRAZOLE 40 MG TABLET PO (10:23)
[2024-05-22] MEDS: ENOXAPARIN 30 MG/0.3 ML SYRINGE SUB-Q (10:24)
[2024-05-22] MEDS: TAMSULOSIN HCL 0.4 MG CAPSULE PO (10:24)
[2024-05-22] MEDS: polyethylene glycoL 3350 17 GM POWD.PACK PO (10:25)
[2024-05-22 14:00] VITALS: BP 129/69; PULSE 80; RESP 18; TEMP 36.4; O2SAT 99
--- NOTE | 2024-05-22 14:39 | PM.DS ---
DS: Admitting Diagnosis Discharge Date 05/22/24 Admitting Diagnosis altered mental status acute UTI BPH chronic kidney disease stage 4 CHF hypertension hyperlipidemia DS: Discharge Diagnosis Discharge Diagnosis (1) Altered mental status: Code(s): R41.82 - Altered mental status, unspecified Status: Acute (2) Acute UTI: Code(s): N39.0 - Urinary tract infection, site not specified Status: Acute (3) BPH (benign prostatic hyperplasia): Code(s): N40.0 - Benign prostatic hyperplasia without lower urinary tract symptoms Status: Acute (4) Chronic kidney disease, stage IV (severe): Code(s): N18.4 - Chronic kidney disease, stage 4 (severe) Status: Chronic (5) Congestive heart failure: Qualifiers: Heart failure type: diastolic Heart failure chronicity: acute on chronic Qualified Code(s): I50.33 - Acute on chronic diastolic (congestive) heart failure Code(s): I50.9 - Heart failure, unspecified Status: Acute (6) Hypertension: Code(s): I10 - Essential (primary) hypertension Status: Acute (7) Hyperlipidemia: Code(s): E78.5 - Hyperlipidemia, unspecified Status: Acute DS: Summary Hospital Course Reason for hospitalization: altered mental status acute UTI BPH chronic kidney disease stage 4 CHF hypertension hyperlipidemia Hospital Course: This is an 88-year-old male with a significant past medical history of dementia, CHF, chronic kidney disease, former smoker who presented to the hospital for evaluation of altered mental status. Patient is confused and unable to give me any history of presenting illness. Most of history of presenting illness was obtained from the EMR. Patient lives at home with family and reported worsening altered mental status. 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 Chest x-ray showed cardiomegaly, possible sliding hiatus hernia, bronchitis. acute encephalopathy: patient is now alert and oriented times 2-3 Which is his baseline. patient had an MRI of the brain and brainstem which was negative for new stroke. He also had an ApneaLink which shown higher risk for sleep apnea. He will need to follow up with his primary care doctor and get an official sleep study done on an outpatient basis. Discuss this with the granddaughter who is his senior production manager. acute urinary tract infection: urine culture was negative on final read. meropenem was discontinued. final diagnosis: acute encephalopathy , obstructive sleep apnea Status at Discharge Cognitive/behavioral status at discharge: Alert and oriented times 2-3 Functional status at discharge: uses cane/walker Overall status at discharge: patient is progressing back to baseline Time Spent with Patient Time attestation: Total time spent providing and/or coordinating discharge services: Time spent: Greater than 30 minutes Exam Narrative: General: In no acute distress, malnourished Cardiac: Normal S1 and S2. Murmur noted, no gallops or friction rubs, peripheral pulses intact. Respiratory: Lungs clear to auscultation, no adventitious lung sounds, currently on room air Gastrointestinal: soft, non-distended, non-tender, normoactive bowel sounds. : voiding without difficulty. Extremities: moves all extremities well, no edema Skin: clean, dry, intact. No wounds or lesions. Neuro: Alert and oriented x2-3. DS: Data Data Completed and Pending Completed studies during hospitalization: ApneaLink brain MRI chest x-ray head CT Pending studies at discharge: none Labs on day of discharge: Labs from last 24 hours 05/22/24 05:52 WBC 4.6 RBC 2.58 L Hgb 8.4 L Hct 26.6 L MCV 103.1 H MCH 32.6 MCHC 31.6 L RDW 13.9 Plt Count 121 L MPV 10.7 H Immature Gran % (Auto) 0.9 H Neut % (Auto) 68.0 Lymph % (Auto) 14.1 L [place] % (Auto) 13.2 H Eos % (Auto) 3.2 Baso % (Auto) 0.6 Lymph # (Auto) 0.65 L [place] # (Auto) 0.6 Eos # (Auto) 0.2 Baso # (Auto) 0.0 Abs Immat Gran (auto) 0.04 H Absolute Neuts (auto) 3.1 Absolute Nucleated RBC 0.000 Nucleated RBC % 0.0 Sodium 136 L Potassium 3.8 Chloride 102 Carbon Dioxide 28 Anion Gap 6 BUN 34 H Creatinine 2.49 H Estim Creat Clear Calc 19 Estimated GFR 25 L Glucose 91 Calcium 9.6 Total Bilirubin 0.4 AST 20 ALT 11 Alkaline Phosphatase 73 Total Protein 6.0 L Albumin 3.3 L Procedures/Treatments: none Discharge Plan Discharge Attending physician on discharge: Toni Long Consulting providers: Akil Rosario; Pako Drew Discharging Clinician: Galilea Ogden Anticipated Discharge Date/Time: 05/22/24 14:31 Patient Disposition: Home Health Service Activity: as tolerated Diet: as tolerated and heart healthy Discharge Instructions: Per Care Coordination: Aga Hale [facility] ([phone]) will call to set up initial visit. RN please fax discharge paperwork to [phone] Brain MRI only shown age related changes which is normal Apnea Link shown possible sleep apnea. He will need to follow up with his primary care doctor to set up outpatient sleep study. Patient Instructions: Antibiotic Form, Pain Management in Older Adults (DC) Patient Language: Frisian Stand Alone Forms: General Discharge Information Follow-up/Referrals: Miguel Ángel Vigil MD [Primary Care Provider] - 1 Week Discharge Medications: Continued finasteride 5 mg tablet 5 mg PO DAILY Qty: 30 0RF pravastatin 40 mg tablet 40 mg PO HS tamsulosin 0.4 mg capsule 0.4 mg PO BID sodium bicarbonate 650 mg tablet 650 mg PO BID ferrous sulfate 325 mg (65 mg iron) Tablet 325 mg PO DAILY escitalopram oxalate 10 mg tablet 10 mg PO HS aspirin 81 mg tablet 81 mg PO DAILY amlodipine [Norvasc] 5 mg tablet 5 mg PO DAILY hydrocodone-acetaminophen 5-325 mg tablet 1 tablet PO Q12H pantoprazole 40 mg Tablet,Delayed Release (Dr/Ec) 40 mg PO DAILY sennosides-docusate sodium [Senokot-S] 8.6-50 mg Tablet 1 tab-cap PO HS Qty: 30 0RF fluconazole [Diflucan] 100 mg Tablet 200 mg PO QAM Qty: 25 0RF furosemide [Lasix] 20 mg tablet 20 mg PO DAILY Qty: 30 0RF polyethylene glycol 3350 [Miralax] 17 gram Powder In Packet 17 g PO QAM Qty: 30 0RF Discontinued amoxicillin-pot clavulanate 875-125 mg tablet 1 tablet PO Q12H Qty: 12 0RF doxycycline hyclate 100 mg Tablet 100 mg PO Q12HR Qty: 11 0RF Date of admission: 05/21/24 09:22 Primary Care Provider: Miguel Ángel Vigil Admitting Provider: Mason Herron Attending physician on admission: Galilea Ogden Condition: Improved Quality VTE Prophylaxis VTE prophylaxis: pharmacologic ordered Hospitalist MIPS Heart Failure (Exclusion) Patient has history of Heart Transplant or Left Ventricular Assistive Device?: No IF YES, STOP HERE Heart Failure (Qualifier) Patient has current or prior documentation of LVEF less than or equal to 40%, or mod/servere depressed LVSF?: No IF NO, STOP HERE
== END 2024-05-22 19:30 | disposition home health service (06) | DRG 70 ==
LOC: ANHED 13:39 → ANH3MEDSUR 17:06
PROVIDERS: Admitting Provider Internal Medicine; Emergency Provider Emergency Medicine; PCP Internal Medicine; Visit Provider Nurse Practitioner Acute Care
DX: G93.40 Encephalopathy, unspecified (principal); I50.33 Acute on chronic diastolic (congestive) heart failure; N18.4 Chronic kidney disease, stage 4 (severe); I13.0 Hypertensive heart and chronic kidney disease with heart failure and stage 1 through stage 4 chronic kidney disease, or unspecified chronic kidney disease; E78.5 Hyperlipidemia, unspecified; N40.0 Benign prostatic hyperplasia without lower urinary tract symptoms; F03.90 Unspecified dementia, unspecified severity, without behavioral disturbance, psychotic disturbance, mood disturbance, and anxiety; Z20.822 Contact with and (suspected) exposure to COVID-19; Z79.82 Long term (current) use of aspirin; Z86.73 Personal history of transient ischemic attack (TIA), and cerebral infarction without residual deficits
CPT/HCPCS: 36415; 70450; 70551; 71045; 80053; 81001; 83735; 84443; 85025; 85055; 85610; 85730; 87086; 87637; 92610; 94762; 96365; 96366; 96372; 96375; 96376; 97161; 97165; 99212; 99285; A9270; G0378; G0463; J0696; J1650; J2185